=== PATIENT | female | born 1950 | race Two or more races ===

== ENCOUNTER 2019-06-27 23:41 | Inpatient (IN) | payer OTHER ==
[~2019-06-27] VITALS: Ht 152.4 cm; Wt 66.2 kg
--- NOTE | 2019-06-27 23:45 | NUR ---
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
[2019-06-28] VITALS (37 sets, daily range): BP systolic 55–150; BP diastolic 32–101
[2019-06-28 00:04] LABS: HEMATOCRIT 21.4 % (37.0-47.0); HEMOGLOBIN 7.4 G/DL (12.0-16.0); MEAN CORPUSCULAR VOLUME 98 FL (80-99); PLATELET COUNT 53 K/UL (150-450); RED BLOOD COUNT 2.19 M/UL (4.20-5.40); RED CELL DISTRIBUTION WIDTH 13.5 % (11.6-14.8); WHITE BLOOD COUNT 8.1 K/UL (4.8-10.8)
[2019-06-28] MEDS ORDERED: Pantoprazole Inj IVP ONE (00:15)
[2019-06-28] MEDS ORDERED: Octreotide Acetate 500 MCG in Sodium Chloride 499 ML IV SCH (00:15)
--- NOTE | 2019-06-28 00:15 | NUR ---
ED Nurse Note: Pt continues to have active emesis of bright red blood and large clots, MD is aware, pt also remains with very low b/p, also re-informed md, asked for iv fluids, pressors,etc, no new orders recieved, pt remains awake and alert, on monitoring, iv site patent, will continue to closely monitor.
[2019-06-28 00:17] LABS: ANION GAP 11 mmol/L (5-15); BLOOD UREA NITROGEN 32 mg/dL (7-18); CALCIUM 7.9 MG/DL (8.5-10.1); CARBON DIOXIDE 22 MMOL/L (21-32); CHLORIDE 110 MMOL/L (98-107); CREATININE 0.8 MG/DL (0.55-1.30); POTASSIUM 4.2 MMOL/L (3.5-5.1); SODIUM 143 MMOL/L (136-145)
[2019-06-28 00:36] LABS: ALANINE AMINOTRANSFERASE 29 U/L (12-78); ALBUMIN 1.9 G/DL (3.4-5.0); ALBUMIN/GLOBULIN RATIO 0.7 (1.0-2.7); ALKALINE PHOSPHATASE 155 U/L (46-116); ASPARTATE AMINO TRANSFERASE 40 U/L (15-37); BILIRUBIN,TOTAL 2.3 MG/DL (0.2-1.0); CKMB 1.7 NG/ML (0.0-3.6); CREATINE KINASE 76 U/L (26-308)
--- NOTE | 2019-06-28 00:40 | NUR ---
ED Nurse Note: Pt continued to have severe, emesis with active bleeding and clots, pt was in trendelenburg position for low b/p, pt now in semi-fowlers due to constant emesis, md decided to intubate pt, pt now intubated, et-tube size 8.0 and at 20cm lip line, vent settings ac-16, tv-500, fi02 100% and peep of 5, pt tolerating well, b/p remains very low, pt to recieve emergency blood transfusion.
[2019-06-28 00:49] LABS: BILIRUBIN,DIRECT 0.4 MG/DL (0.0-0.3)
--- NOTE | 2019-06-28 02:00 | NUR ---
ED Nurse Note: Pt continues to rest in bed, awake and alert, pt is intubated, tolerating well, no need for restraints, pt is very cooperative, currently recieving blood transfusion of PRBC's, tolerating well, no s/s of adverse reaction noted, repeat lactic drawn also, pt central line inplace, will continue to closely monitor and prepare for admission to ICU unit.
[2019-06-28 02:09] LABS: INR 1.4 (0.9-1.1)
[2019-06-28] MEDS ORDERED: Succinylcholine 20mg/ml 10ml vial IV ONE (02:30)
--- NOTE | 2019-06-28 03:00 | NUR ---
ED Nurse Note: Pt continues to recieve PRBC's blood transfusion, tolerating well, no s/s of adverse reaction, pt to recieve total of 4 units, on 3rd now, pt given complete bath and linen change, skin is intact and patent, swabs collected and sent, pt to be admitted to ICU unit, will continue to closely monitor and prepare for admission.
--- NOTE | 2019-06-28 03:14 | Emergency Room Report ---
History of Present Illness General Chief Complaint: Vomiting Source: Patient Present Illness HPI Patient presents by paramedics for reports of vomiting blood throughout the day Patient herself reports starting in the morning time family reports that they saw her around 1:00 And patient had told him about vomiting blood patient has had recent blood transfusion and upper endoscopy with intervention that is not specific to the family This is within the last 1 month Patient's family also reports patient has liver disease and esophageal varices Patient denies any abdominal pain on further questioning also reports dark Stools Allergies: Coded Allergies: No Known Allergies (Unverified , 06/27/19) Patient History Past Medical History: see triage record Last Menstrual Period: n/a Reviewed Nursing Documentation: PMH: Agreed; PSxH: Agreed Nursing Documentation-PMH Past Medical History: No History, Except For Hx Diabetes: Yes Review of Systems All Other Systems: negative except mentioned in HPI Physical Exam Vital Signs Date Time Temp Pulse Resp B/P (MAP) Pulse Ox O2 Delivery O2 Flow Rate FiO2 06/27/19 23:32 98.2 125 18 86/46 (59) 98 Room Air 06/28/19 00:30 100 Sp02 EP Interpretation: reviewed, normal General Appearance: severe distress Head: normocephalic, atraumatic Eyes: bilateral eye PERRL ENT: no angioedema, normal voice Neck: supple Respiratory: lungs clear Cardiovascular #1: regular rate, rhythm Gastrointestinal: non tender, soft Rectal: other - Melena presents Genitourinary: no CVA tenderness Musculoskeletal: normal inspection Neurologic: alert, oriented x3 Psychiatric: normal inspection Skin: pallor - Patient actively vomiting bright blood at bedside, appears pale Lymphatic: normal inspection Procedures Critical Care Time Critical Care Time 85 minutes for multiple re-evaluations critical presentation concerning for decompensation and possible Central Line Central Line : Consent: Emergent Central Line Lumen: triple Maximal Sterile Barrier Tech: yes cap, yes mask, yes sterile gown, yes sterile gloves, yes large sterile sheet, yes hand hygiene, yes chlorhexidine prep Central Line Postion: femoral (L) Complications: none Central Line Post Position: sutured Attempts: One Patient Tolerated: Well Complications: None Progress Please note the patient had one attempt on the right femoral region without success Intubation Intubation : Consent: Emergent Intubation Method: orotracheal Tube Size (cm): 8.0 Medications: Succinylcholine Breath Sounds after Intubation: equal Post Intubation Xray: Yes Attempts: One Patient Tolerated: Well Complications: None Progress Patient has large amounts of blood in the oral mucosa required suctioning Medical Decision Making Diagnostic Impression: Primary Impression: GI bleed ER Course Patient presents and critical condition Actively vomiting bright blood Patient also hypotensive Patient also appears to become more hypoxic requiring airway intubation central line placement Patient's hemoglobin is 7.4 however likely heading lower given her findings Emergency transfusions are initiated Patient has somewhat stabilized with blood pressure improving initially a Terrell NG tube was going to be placed however given the patient's improvement this is being held until further GI consultation GI is contacted patient remains critical and admitted to ICU guarded condition Labs Test 06/27/19 23:40 06/28/19 01:30 06/28/19 02:28 White Blood Count 8.1 K/UL (4.8-10.8) Red Blood Count 2.19 M/UL (4.20-5.40) Hemoglobin 7.4 G/DL (12.0-16.0) Hematocrit 21.4 % (37.0-47.0) Mean Corpuscular Volume 98 FL (80-99) Mean Corpuscular Hemoglobin 33.6 PG (27.0-31.0) Mean Corpuscular Hemoglobin Concent 34.3 G/DL (32.0-36.0) Red Cell Distribution Width 13.5 % (11.6-14.8) Platelet Count 53 K/UL (150-450) Mean Platelet Volume 9.5 FL (6.5-10.1) Neutrophils (%) (Auto) % (45.0-75.0) Lymphocytes (%) (Auto) % (20.0-45.0) Monocytes (%) (Auto) % (1.0-10.0) Eosinophils (%) (Auto) % (0.0-3.0) Basophils (%) (Auto) % (0.0-2.0) Prothrombin Time 14.8 SEC (9.30-11.50) Prothromb Time International Ratio 1.4 (0.9-1.1) Activated Partial Thromboplast Time 33 SEC (23-33) Sodium Level 143 MMOL/L (136-145) Potassium Level 4.2 MMOL/L (3.5-5.1) Chloride Level 110 MMOL/L (98-107) Carbon Dioxide Level 22 MMOL/L (21-32) Anion Gap 11 mmol/L (5-15) Blood Urea Nitrogen 32 mg/dL (7-18) Creatinine 0.8 MG/DL (0.55-1.30) Estimat Glomerular Filtration Rate > 60 mL/min (>60) Glucose Level 391 MG/DL (74-106) Lactic Acid Level 6.70 mmol/L (0.4-2.0) 5.90 mmol/L (0.66-2.22) Calcium Level 7.9 MG/DL (8.5-10.1) Total Bilirubin 2.3 MG/DL (0.2-1.0) Direct Bilirubin 0.4 MG/DL (0.0-0.3) Aspartate Amino Transf (AST/SGOT) 40 U/L (15-37) Alanine Aminotransferase (ALT/SGPT) 29 U/L (12-78) Alkaline Phosphatase 155 U/L (46-116) Total Creatine Kinase 76 U/L (26-308) Creatine Kinase MB 1.7 NG/ML (0.0-3.6) Creatine Kinase MB Relative Index 2.2 Troponin I 0.062 ng/mL (0.000-0.056) Pro-B-Type Natriuretic Peptide 54 pg/mL (0-125) Total Protein 4.8 G/DL (6.4-8.2) Albumin 1.9 G/DL (3.4-5.0) Globulin 2.9 g/dL Albumin/Globulin Ratio 0.7 (1.0-2.7) Lipase 317 U/L (73-393) Arterial Blood pH 7.275 (7.350-7.450) Arterial Blood Partial Pressure CO2 32.6 mmHg (35.0-45.0) Arterial Blood Partial Pressure O2 310.8 mmHg (75.0-100.0) Arterial Blood HCO3 14.8 mmol/L (22.0-26.0) Arterial Blood Oxygen Saturation 98.7 % (95-100) Arterial Blood Base Excess -11 (-2-2) James Test Positive Rhythm Strip Diag. Results EP Interpretation: yes Rate: 90 Rhythm: NSR, no PVC's, no ectopy Chest X-Ray Diagnostic Results Chest X-Ray Diagnostic Results #1: Chest X-Ray Ordered: Yes # of Views/Limited/Complete: 1 View Indication: Chest Pain EP Interpretation: Yes Interpretation: no consolidation, no effusion, no pneumothorax Impression: No acute disease Electronically Signed by: Julieth Martínez DO Chest X-Ray Diagnostic Results #2: Chest X-Ray Ordered: Yes # of Views/Limited/Complete: 1 View Indication: Other - Post intubation EP Interpretation: Yes Interpretation: no consolidation, no effusion, no pneumothorax Impression: Other - ET tube will be withdrawn half centimeter Electronically Signed by: Julieth Martínez DO Last Vital Signs Date Time Temp Pulse Resp B/P (MAP) Pulse Ox O2 Delivery O2 Flow Rate FiO2 06/28/19 01:05 91 17 98 Mechanical Ventilator 100 06/28/19 01:00 98.2 65/36 Status: improved Disposition: ADMITTED INPATIENT Condition: Critical Referrals: [facility],REFERRING (PCP) Julieth Martínez DO Jun 28, 2019 03:14
--- NOTE | 2019-06-28 03:50 | NUR ---
ED Nurse Note: Pt has room for admisison, report called to ROMAIN Thomas, pt has all belongings, remains intubated, respiratory therapist present, pt is awake, alert and oriented, no s/s of blood transfusion reactiono noted, pt completing last unit, pt being taken to floor bed via gurney and acls protocols, nad noted during pt transport.
--- NOTE | 2019-06-28 04:15 | NUR ---
NURSE NOTES: Patient is transferred from ED and received report from ROMAIN Patterson. Patient is alert and able to follow commands. No acute distress/SOB noted. ETT 8.0/20cm at lip line. Vent setting AC 16, TV 550 and FiO2 50%. Left femoral TLC intact and running with sandostatin @50mcg/hr and 4th pRBC is running. VSS. Call-light placed in easy reach. Will follow up with Dr for admission orders.
--- NOTE | 2019-06-28 05:00 | NUR ---
NURSE NOTES: Received admission orders from Dr. Morelos. Will continue plan of care.
[2019-06-28] MEDS: NovoLOG Insulin Flexpen SUBQ SCH ×4 (06:41→21:59)
--- NOTE | 2019-06-28 06:45 | NUR ---
NURSE NOTES: Changed left femoral central line dressing.
--- NOTE | 2019-06-28 07:06 | NUR ---
RESPIRATORY NOTE: received pt orally intubated with vent settings of AC 16 550 50% +0 at this time. sputum collected as ordered, RN aware. pt in no resp distress at this time. will attempt to wean later this morning. alarms are set and audible with ambu bag at bedside. will cont to monitor.
--- NOTE | 2019-06-28 07:20 | NUR ---
HAND-OFF: Report given to ROMAIN Chawla. Endorsed plan of care.
--- NOTE | 2019-06-28 07:25 | NUR ---
NURSE NOTES: Received change of shift report from William HOYOS. Pt is awake, alert, orally intubated, responsive and able to follow commands. Pt is Telugu speaking, family is at bedside. ETT 8.0 at 20cm right lipline with vent settings AC16, VT550, FIO2 45% with O2Sat at 100% and bilateral inspiratory/expiratory diminished lung sounds. Bilateral peripheral weak pulses are noted on palpation. Pt has left femoral TLC currently with IV fluid infusing 0.45% NS at 75ml/hour and Sandostatin as ordered. Temp 97.6F axillary. Abdomen is large, round, tender to touch with hypoactive bowel sounds in all quadrants. Pt reports severe abdominal pain 8/10. Pt has external female-urinary catheter in place, with small dark yellow urine output. Skin is intact. Bed is locked with three side rails up in lowest position and call light within reach. Will continue to monitor pt and follow plan of care per MD orders and protocol.
--- NOTE | 2019-06-28 07:26 | NUR ---
NURSE NOTES: Pt is actively bleeding orally, dark red blood with blood clots. When head of bed is supine, blood is oozing out from the mouth, when the head of bed is elevated, pt complains of nausea, and vomits blood. MD has been notified. Pt is being suctioned orally. Per pt's family (daughter at bedside), the pt had recent past hospitalization where EDG was done which confirmed "esophageal varices" and "gastritis". Dr Morelos and Dr Hsieh (both covering for Dr Leigh are being notified).
[2019-06-28 08:45] LABS: HEMATOCRIT 36.6 % (37.0-47.0); MEAN CORPUSCULAR VOLUME 89 FL (80-99); PLATELET COUNT 37 K/UL (150-450); RED BLOOD COUNT 4.11 M/UL (4.20-5.40); RED CELL DISTRIBUTION WIDTH 13.6 % (11.6-14.8); WHITE BLOOD COUNT 12.3 K/UL (4.8-10.8)
--- NOTE | 2019-06-28 08:49 | NUR ---
RESPIRATORY NOTE: placed pt on CPAP PS 10 with family at bedside to help translate. pt tolerate for only 5 minutes before placing back on AC mode. pt's reason was stomach pain. RN notified. pt willing to try again later.
[2019-06-28 08:54] LABS: HEMOGLOBIN 12.4 G/DL (12.0-16.0)
[2019-06-28] MEDS ORDERED: Pantoprazole Inj IVP SCH (09:00)
--- NOTE | 2019-06-28 09:00 | NUR ---
NURSE NOTES: Pt was cleaned, gown/bed linens changed. Oral care done. Pt was repositioned with bilateral extremities elevated on pillows.
--- NOTE | 2019-06-28 09:04 | GI Initial Consult Note ---
History of Present Illness General Date patient seen: Jun 28, 2019 Time patient seen: 09:00 Reason for Hospitalization: Vomiting Referring physician: MATTHEW Reason for Consultation: UGIB Present Illness HPI Patient presents by paramedics for reports of vomiting blood throughout the day Patient herself reports starting in the morning time family reports that they saw her around 1:00 And patient had told him about vomiting blood patient has had recent blood transfusion and upper endoscopy with intervention that is not specific to the family This is within the last 1 month Patient's family also reports patient has liver disease and esophageal varices Patient denies any abdominal pain on further questioning also reports dark Stools GI consulted for reported UGIB. Pt seen, awake alert intubated in ICU, family at bedside. According to the family, the patient had multiple episodes of coffee grounds in the ED and in unit. They report a history of cirrhosis x7 years, in which they denied any ETOH use or abuse. Her last endoscopy was performed approximately 1 month ago, noted with Esophageal Varices. Labs reviewed. Home Meds No Active Prescriptions or Reported Meds Allergies: Coded Allergies: No Known Allergies (Unverified , 06/27/19) Patient History Limited by: medical condition History Provided By: Family Member PMH Narrative Patient History Past Medical History: see triage record Last Menstrual Period: n/a Reviewed Nursing Documentation: PMH: Agreed; PSxH: Agreed Nursing Documentation-PM Past Medical History: No History, Except For Hx Diabetes: Yes Review of Systems All Other Systems: limited Physical Exam Vital Signs Date Time Temp Pulse Resp B/P (MAP) Pulse Ox O2 Delivery O2 Flow Rate FiO2 06/27/19 23:32 98.2 125 18 86/46 (59) 98 Room Air 06/28/19 00:30 100 Sp02 EP Interpretation: reviewed, normal Labs Laboratory Tests Test 06/27/19 23:40 06/28/19 01:30 06/28/19 02:28 06/28/19 08:15 White Blood Count 8.1 K/UL (4.8-10.8) 12.3 K/UL (4.8-10.8) #H Red Blood Count 2.19 M/UL (4.20-5.40) L 4.11 M/UL (4.20-5.40) L Hemoglobin 7.4 G/DL (12.0-16.0) L 12.4 G/DL (12.0-16.0) # Hematocrit 21.4 % (37.0-47.0) L 36.6 % (37.0-47.0) #L Mean Corpuscular Volume 98 FL (80-99) 89 FL (80-99) # Mean Corpuscular Hemoglobin 33.6 PG (27.0-31.0) H 30.2 PG (27.0-31.0) Mean Corpuscular Hemoglobin Concent 34.3 G/DL (32.0-36.0) 33.9 G/DL (32.0-36.0) Red Cell Distribution Width 13.5 % (11.6-14.8) 13.6 % (11.6-14.8) Platelet Count 53 K/UL (150-450) L 37 K/UL (150-450) L Mean Platelet Volume 9.5 FL (6.5-10.1) 12.2 FL (6.5-10.1) H Neutrophils (%) (Auto) % (45.0-75.0) % (45.0-75.0) Lymphocytes (%) (Auto) % (20.0-45.0) % (20.0-45.0) Monocytes (%) (Auto) % (1.0-10.0) % (1.0-10.0) Eosinophils (%) (Auto) % (0.0-3.0) % (0.0-3.0) Basophils (%) (Auto) % (0.0-2.0) % (0.0-2.0) Prothrombin Time 14.8 SEC (9.30-11.50) H Prothromb Time International Ratio 1.4 (0.9-1.1) H Activated Partial Thromboplast Time 33 SEC (23-33) Sodium Level 143 MMOL/L (136-145) Potassium Level 4.2 MMOL/L (3.5-5.1) Chloride Level 110 MMOL/L (98-107) H Carbon Dioxide Level 22 MMOL/L (21-32) Anion Gap 11 mmol/L (5-15) Blood Urea Nitrogen 32 mg/dL (7-18) H Creatinine 0.8 MG/DL (0.55-1.30) Estimat Glomerular Filtration Rate > 60 mL/min (>60) Glucose Level 391 MG/DL (74-106) H Lactic Acid Level 6.70 mmol/L (0.4-2.0) H 5.90 mmol/L (0.66-2.22) H Pending Calcium Level 7.9 MG/DL (8.5-10.1) L Total Bilirubin 2.3 MG/DL (0.2-1.0) H Direct Bilirubin 0.4 MG/DL (0.0-0.3) H Aspartate Amino Transf (AST/SGOT) 40 U/L (15-37) H Alanine Aminotransferase (ALT/SGPT) 29 U/L (12-78) Alkaline Phosphatase 155 U/L (46-116) H Total Creatine Kinase 76 U/L (26-308) Creatine Kinase MB 1.7 NG/ML (0.0-3.6) Creatine Kinase MB Relative Index 2.2 Troponin I 0.062 ng/mL (0.000-0.056) Pending Pro-B-Type Natriuretic Peptide 54 pg/mL (0-125) Total Protein 4.8 G/DL (6.4-8.2) L Albumin 1.9 G/DL (3.4-5.0) L Globulin 2.9 g/dL Albumin/Globulin Ratio 0.7 (1.0-2.7) L Lipase 317 U/L (73-393) Arterial Blood pH 7.275 (7.350-7.450) Arterial Blood Partial Pressure CO2 32.6 mmHg (35.0-45.0) L Arterial Blood Partial Pressure O2 310.8 mmHg (75.0-100.0) H Arterial Blood HCO3 14.8 mmol/L (22.0-26.0) *L Arterial Blood Oxygen Saturation 98.7 % (95-100) Arterial Blood Base Excess -11 (-2-2) *L James Test Positive Neutrophils % (Manual) Pending Lymphocytes % (Manual) Pending Platelet Estimate Pending Platelet Morphology Pending General Appearance: well appearing, no apparent distress, alert Head: normocephalic EENT: PERRL/EOMI, normal ENT inspection Neck: supple Respiratory: normal breath sounds, no respiratory distress Cardiovascular: normal rate Gastrointestinal: normal inspection, non tender, soft, normal bowel sounds, non -distended Rectal: deferred Genitourinary: no CVA tenderness Musculoskeletal: normal inspection, back normal Neurologic: normal inspection, alert, oriented x3, responsive Psychiatric: normal inspection, judgement/insight normal, memory normal Skin: normal inspection, normal color, no rash, warm/dry, palpation normal, well hydrated Lymphatic: normal inspection, no adenopathy Current Medications Current Medications Medications (Trade) Dose Ordered Sig/Naseem Route PRN Reason Start Time Stop Time Status Last Admin Dose Admin Chlorhexidine Gluconate (Mer-Hex 2%) 1 applic DAILY@2000 TOPIC 06/28/19 20:00 07/28/19 19:59 Dextrose (Dextrose 50%) 25 ml Q30M PRN IV Hypoglycemia 06/28/19 05:00 07/28/19 04:59 Dextrose (Dextrose 50%) 50 ml Q30M PRN IV Hypoglycemia 06/28/19 05:00 07/28/19 04:59 Insulin Aspart (NovoLOG) BEFORE MEALS AND HS SUBQ 06/28/19 06:30 07/28/19 06:29 06/28/19 06:41 Octreotide Acetate 500 mcg/ Sodium Chloride 500 ml @ 50 mls/hr Q10H IV 06/28/19 10:00 07/28/19 09:59 Pantoprazole (Protonix) 40 mg EVERY 12 HOURS IVP 06/28/19 09:00 07/28/19 08:59 Sodium Chloride 1,000 ml @ 75 mls/hr [id number] IV 06/28/19 05:00 07/28/19 04:59 06/28/19 05:22 GI: Plan Problems: (1) Varices, esophageal (2) Cirrhosis (3) GI bleed (4) Acute GI bleeding Plan EGD to be scheduled tomorrow pending cardiac clearance given elevated troponin levels maintain NPO + IVFs octreotide gtt protonix gtt prn transfusions abdominal US hepatitis panel follow labs will follow with additional recommendations post procedure Discussed with Dr. Garcia. Thank you for this patient referral, we will follow. The patient was seen and examined at bedside and all new and available data was reviewed in the patients chart. I agree with the above findings, impression and plan. (Patient seen earlier today. Signature stamp does not reflect patient encounter time.). - MD Denise KumarSierra TucsonJarvis DIAZO TECHNICIAN Jun 28, 2019 09:04
--- NOTE | 2019-06-28 09:26 | NUR ---
*-* NO INSURANCE INFORMATION IN THE BAR UNABLE TO SEND CLINICALS OR REVIEWS *-*
--- NOTE | 2019-06-28 09:30 | NUR ---
NURSE NOTES: Normal saline 500ml bolus and 1000ml bolus are being administered as ordered for hypotension. Dr Zeng was at bedside and informed regarding pt's condition. Order was also received for Levophed and med is now ready and on standby, as pt's BP is slowly improving.
[2019-06-28] MEDS: Pantoprazole 80 MG in NS 250 ML IV SCH ×2 (09:42→19:46)
[2019-06-28] MEDS: Morphine Sulfate 2mg/ml Inj(IV/IM USE ONLY) IVP PRN ×3 (09:51→22:07)
--- NOTE | 2019-06-28 10:00 | NUR ---
NURSE NOTES: Pt was administered Morphine IVP as ordered for PRN severe abdominal pain. AM meds were administered. Order noted for platelet transfusion. Will follow once blood is available through blood bank. Oral bleeding has stopped. When suctioning pt, there is very small amount of secretion that is light pink. ECG tracing was done as ordered, resulted Normal Sinus Rhythm. agricultural technician is now at bedside for 2D Echo. Family has been updated and is currently in the waiting area.
[2019-06-28] MEDS: Octreotide Acetate 500 MCG in Sodium Chloride 499 ML IV SCH ×2 (10:30→19:46)
--- NOTE | 2019-06-28 10:46 | History and Physical ---
History of Present Illness General Date patient seen: Jun 28, 2019 Reason for Hospitalization: Vomiting Present Illness HPI History obtained by family HPI: 69-year-old female with past medical history of esophageal varices diagnosed on recent EGD done at [facility]. Family describes that at that time patient had a EGD that was shown to have a "infection". Suspect possible H. pylori. Family states she was on antibiotics. Patient also has liver cirrhosis without unknown cause. Family denies history of EtOH. They are unaware of any work-up for cirrhosis. They deny family history of cirrhosis, or autoimmune diseases. Patient was brought in for hematemesis, and intubated for airway protection. About 400 cc of blood suctioned from oral cavity. Patient was initially hypotensive with systolic blood pressure in the 60s, was given IV fluids, placed on levo fed. Patient was eventually weaned off levo with adequate fluid resuscitation. Patient also placed on octreotide drip, Protonix, Rocephin for ascites on exam. Past medical history: Esophageal varices, cirrhosis Past surgical history; EGD 1 month ago at [facility] Medications: None Allergies: None Family history: Denies Past social history: Denies EtOH, tobacco, drug use ROS: As stated above. Aside from HPI all other review of systems are negative including more than 12 systems. Allergies: Coded Allergies: No Known Allergies (Unverified , 06/27/19) Medication History No Active Prescriptions or Reported Meds Patient History Healthcare decision maker PRABHU RAMIREZ Resuscitation status Full Code Advanced Directive on File No Physical Exam Last 24 Hour Vital Signs Date Time Temp Pulse Resp B/P (MAP) Pulse Ox O2 Delivery O2 Flow Rate FiO2 06/28/19 10:21 97.5 06/28/19 08:40 98 18 45 45 06/28/19 08:40 98 06/28/19 07:01 101 18 50 06/28/19 07:00 101 18 111/63 (79) 100 06/28/19 06:00 99 16 107/61 (76) 100 06/28/19 05:18 101 16 100 06/28/19 05:09 Mechanical Ventilator 06/28/19 05:05 100 16 116/59 (78) 100 06/28/19 04:32 50 06/28/19 04:31 98 06/28/19 04:27 97.5 98 16 123/68 (86) 100 06/28/19 04:00 98.4 96 16 114/57 100 Mechanical Ventilator 100 06/28/19 03:00 98.4 96 16 114/57 100 Mechanical Ventilator 100 06/28/19 02:40 96 19 100 06/28/19 02:30 98.4 86 16 97/52 100 Mechanical Ventilator 100 06/28/19 02:00 98.2 86 17 86/40 100 Mechanical Ventilator 100 06/28/19 01:30 98.2 89 17 55/35 100 Mechanical Ventilator 100 06/28/19 01:05 91 17 98 Mechanical Ventilator 100 06/28/19 01:00 98.2 109 17 65/36 100 Mechanical Ventilator 100 06/28/19 00:54 91 17 100 06/28/19 00:30 98.2 108 18 107/50 100 Mechanical Ventilator 100 06/28/19 00:00 98.2 109 18 61/32 98 Room Air 06/27/19 23:45 125 18 Room Air 06/27/19 23:32 98.2 125 18 86/46 (59) 98 Room Air Intake and Output 06/27/19 06/28/19 18:59 06:59 Intake Total 864 ml Output Total 0 ml Balance 864 ml Intake Oral 0 ml IV Total 97 ml Blood Product 767 ml Output Urine Total 0 ml # Voids 2 Laboratory Tests Test 06/27/19 23:40 06/28/19 01:30 06/28/19 02:28 06/28/19 08:15 White Blood Count 8.1 K/UL (4.8-10.8) 12.3 K/UL (4.8-10.8) #H Red Blood Count 2.19 M/UL (4.20-5.40) L 4.11 M/UL (4.20-5.40) L Hemoglobin 7.4 G/DL (12.0-16.0) L 12.4 G/DL (12.0-16.0) # Hematocrit 21.4 % (37.0-47.0) L 36.6 % (37.0-47.0) #L Mean Corpuscular Volume 98 FL (80-99) 89 FL (80-99) # Mean Corpuscular Hemoglobin 33.6 PG (27.0-31.0) H 30.2 PG (27.0-31.0) Mean Corpuscular Hemoglobin Concent 34.3 G/DL (32.0-36.0) 33.9 G/DL (32.0-36.0) Red Cell Distribution Width 13.5 % (11.6-14.8) 13.6 % (11.6-14.8) Platelet Count 53 K/UL (150-450) L 37 K/UL (150-450) L Mean Platelet Volume 9.5 FL (6.5-10.1) 12.2 FL (6.5-10.1) H Neutrophils (%) (Auto) % (45.0-75.0) % (45.0-75.0) Lymphocytes (%) (Auto) % (20.0-45.0) % (20.0-45.0) Monocytes (%) (Auto) % (1.0-10.0) % (1.0-10.0) Eosinophils (%) (Auto) % (0.0-3.0) % (0.0-3.0) Basophils (%) (Auto) % (0.0-2.0) % (0.0-2.0) Prothrombin Time 14.8 SEC (9.30-11.50) H Prothromb Time International Ratio 1.4 (0.9-1.1) H Activated Partial Thromboplast Time 33 SEC (23-33) Sodium Level 143 MMOL/L (136-145) Potassium Level 4.2 MMOL/L (3.5-5.1) Chloride Level 110 MMOL/L (98-107) H Carbon Dioxide Level 22 MMOL/L (21-32) Anion Gap 11 mmol/L (5-15) Blood Urea Nitrogen 32 mg/dL (7-18) H Creatinine 0.8 MG/DL (0.55-1.30) Estimat Glomerular Filtration Rate > 60 mL/min (>60) Glucose Level 391 MG/DL (74-106) H Lactic Acid Level 6.70 mmol/L (0.4-2.0) H 5.90 mmol/L (0.66-2.22) H 4.70 mmol/L (0.4-2.0) H Calcium Level 7.9 MG/DL (8.5-10.1) L Total Bilirubin 2.3 MG/DL (0.2-1.0) H Direct Bilirubin 0.4 MG/DL (0.0-0.3) H Aspartate Amino Transf (AST/SGOT) 40 U/L (15-37) H Alanine Aminotransferase (ALT/SGPT) 29 U/L (12-78) Alkaline Phosphatase 155 U/L (46-116) H Total Creatine Kinase 76 U/L (26-308) Creatine Kinase MB 1.7 NG/ML (0.0-3.6) Creatine Kinase MB Relative Index 2.2 Troponin I 0.062 ng/mL (0.000-0.056) 0.262 ng/mL (0.000-0.056) Pro-B-Type Natriuretic Peptide 54 pg/mL (0-125) Total Protein 4.8 G/DL (6.4-8.2) L Albumin 1.9 G/DL (3.4-5.0) L Globulin 2.9 g/dL Albumin/Globulin Ratio 0.7 (1.0-2.7) L Lipase 317 U/L (73-393) Arterial Blood pH 7.275 (7.350-7.450) Arterial Blood Partial Pressure CO2 32.6 mmHg (35.0-45.0) L Arterial Blood Partial Pressure O2 310.8 mmHg (75.0-100.0) H Arterial Blood HCO3 14.8 mmol/L (22.0-26.0) *L Arterial Blood Oxygen Saturation 98.7 % (95-100) Arterial Blood Base Excess -11 (-2-2) *L James Test Positive Differential Total Cells Counted 100 Neutrophils % (Manual) 94 % (45-75) H Lymphocytes % (Manual) 4 % (20-45) L Monocytes % (Manual) 2 % (1-10) Eosinophils % (Manual) 0 % (0-3) Basophils % (Manual) 0 % (0-2) Band Neutrophils 0 % (0-8) Platelet Estimate Decreased L Platelet Morphology Normal Red Blood Cell Morphology Normal Microbiology Date/Time Source Procedure Growth Status 06/28/19 03:00 Rectum Received Height (Feet): 5 Height (Inches): 2.00 Weight (Pounds): 111 Medications Current Medications Medications (Trade) Dose Ordered Sig/Naseem Route PRN Reason Start Time Stop Time Status Last Admin Dose Admin Chlorhexidine Gluconate (Mer-Hex 2%) 1 applic DAILY@2000 TOPIC 06/28/19 20:00 07/28/19 19:59 Dextrose (Dextrose 50%) 25 ml Q30M PRN IV Hypoglycemia 06/28/19 05:00 07/28/19 04:59 Dextrose (Dextrose 50%) 50 ml Q30M PRN IV Hypoglycemia 06/28/19 05:00 07/28/19 04:59 Insulin Aspart (NovoLOG) BEFORE MEALS AND HS SUBQ 06/28/19 06:30 07/28/19 06:29 06/28/19 06:41 Morphine Sulfate (Morphine Sulfate) 2 mg Q4H PRN IVP For Pain 06/28/19 09:15 07/05/19 09:14 06/28/19 09:51 Norepinephrine Bitartrate 4 mg/ Dextrose 250 ml @ 0 mls/hr Q24H IV 06/28/19 10:30 07/28/19 10:29 Octreotide Acetate 500 mcg/ Sodium Chloride 500 ml @ 50 mls/hr Q10H IV 06/28/19 10:00 07/28/19 09:59 06/28/19 10:30 Pantoprazole 80 mg/Sodium Chloride 250 ml @ 25 mls/hr Q10H IV 06/28/19 10:00 07/28/19 09:59 06/28/19 09:42 Sodium Chloride 500 ml @ 999 mls/hr Q31M ONCE IV 06/28/19 10:30 06/28/19 11:00 Sodium Chloride 1,000 ml @ 75 mls/hr [id number] IV 06/28/19 05:00 07/28/19 04:59 06/28/19 05:22 Objective Narrative GENERAL: Intubated, no acute distress, sitting comfortably, alert HEENT: NCAT, non-icteric eyes, pupils PERRLA Neck: No cervical lymphadenopathy, trachea midline CV: Regular rate and rhythm, no murmurs rubs or gallops RESP: RLL crackles EXT: Normal muscle tone NEURO: intubated, opens eyes and follows commands Vent settings FiO2 40% No PEEP Pressors Levo off Sedation None Assessment/Plan Diagnosis [place] I: 69-year-old female with past medical history of liver cirrhosis without known etiology presents for hematemesis #Hypovolemic shock secondary to hematemesis -Continue fluid resuscitation, additional fluid bolus -PRBC, platelet transfusion -Trend CBC every 6 hours -GI consult, appreciate recs -Surgery consult, appreciate recs -Trend lactate -Wean levofed-> patient weaned after further fluid resuscitation -Cardiology consult, appreciate recs -Echo -Trend troponins #Intubation for airway protection -Pulmonology consult, appreciate recs -After EGD if bleeding is controlled, wean to extubation -RT #Suspected aspiration, patient high risk -Monitor for worsening sepsis or pneumonia -Follow-up repeat chest x-ray #Liver cirrhosis with esophageal varices -Ascites present, continue Rocephin -Protonix 40 mg IV twice daily -Octreotide drip -Monitor CBC and BMP -Patient denies alcohol use, family states reason for liver cirrhosis is unknown. Differentials include Saunders versus autoimmune causes -Autoimmune work-up, can be deferred -Hepatitis panel -Right upper quadrant ultrasound The time of my note may not reflect the time of my patient encounter. 45 minutes of critical time spent. This includes interpretation of charting, vitals, labs, imaging, exam. Advance care planning discussion with family regarding goals of care as well as patient's medical condition and plan. Aileen Hsieh DO Jun 28, 2019 10:46
[2019-06-28] MEDS: cefTRIAXone 1 GM in D5W 55 ML IVPB SCH (11:51)
--- NOTE | 2019-06-28 12:00 | NUR ---
NURSE NOTES: Pt was given Morphine IVP and is now asleep in no apparent distress with family at bedside. The oral bleed has now stopped. BP remains within stable range between low 90's and 110's. Pt remains afebrile. Levophed is on standy, currently on hold.
--- NOTE | 2019-06-28 12:03 | Diagnostic Imaging Report ---
Indication: Post intubation Technique: One view of the chest Comparison: One hour earlier Findings: Interim endotracheal intubation, endotracheal tube tip projecting just above the halima. There are perihilar atelectatic changes. Lungs and pleural spaces are otherwise clear. The heart size is normal. Impression: Interim endotracheal intubation, endotracheal tube tip just above the halima. Other findings as noted This agrees with the preliminary interpretation provided by the emergency room physician
--- NOTE | 2019-06-28 12:36 | Cardiology Report ---
APPROVED REPORT EKG Measurement Heart [id number] Normal sinus rhythm Nonspecific ST abnormality Prolonged QT Abnormal ECG
--- NOTE | 2019-06-28 13:18 | Consultation ---
History of Present Illness General Date patient seen: Jun 28, 2019 Time patient seen: 17:04 Chief Complaint: Vomiting Referring physician: MATTHEW Reason for Consultation: UGIB Present Illness HPI Patient came in from home with c/o emesis with blood since am, pt arrived vomiting large blood clots, and bright red emesis, patient was intubated for airway protected, she was transfused PRBC. The patient had recent past hospitalization where EDG was done which confirmed "esophageal varices" and "gastritis. Family reports hx of cirrhosis but no alcohol use. TTE: Left ventricular ejection fraction estimated to be 65 %. and diastolic dysfunction. Allergies: Coded Allergies: No Known Allergies (Unverified , 06/27/19) Medication History No Active Prescriptions or Reported Meds Patient History Healthcare decision maker PRABHU RAMIREZ Resuscitation status Full Code Advanced Directive on File No Review of Systems Constitutional: Reports: no symptoms Eye: Reports: no symptoms ENT: Reports: no symptoms Respiratory: Reports: no symptoms Cardiovascular: Reports: no symptoms Gastrointestinal: Reports: abdominal pain, nausea, vomiting Genitourinary: Reports: no symptoms Musculoskeletal: Reports: no symptoms Skin: Reports: no symptoms Psychiatric: Reports: no symptoms Neurological: Reports: no symptoms Endocrine: Reports: no symptoms Hematologic/Lymphatic: Reports: no symptoms Physical Exam General Appearance: no apparent distress, alert Lines, tubes and drains: peripheral HEENT: normocephalic, atraumatic, anicteric, mucous membranes moist, PERRL Neck: non-tender, normal alignment, supple Respiratory/Chest: crackles/rales, rhonchi - bilaterally Cardiovascular/Chest: normal peripheral pulses, normal rate, regular rhythm Abdomen: normal bowel sounds, non tender, decreased bowel sounds, hepatomegaly , splenomegaly Extremities: normal range of motion, non-tender, normal inspection Skin Exam: normal pigmentation, warm/dry, cyanotic Neurologic: pathologist assistant II-XII grossly normal, no motor/sensory deficits Last 24 Hour Vital Signs Date Time Temp Pulse Resp B/P (MAP) Pulse Ox O2 Delivery O2 Flow Rate FiO2 06/28/19 12:46 95 16 50 06/28/19 11:00 95 17 110/56 (74) 100 06/28/19 10:35 91 16 50 06/28/19 10:30 92 16 93/52 (66) 100 06/28/19 10:21 97.5 06/28/19 10:00 90 16 73/47 (56) 99 06/28/19 09:30 91 16 61/37 (45) 99 06/28/19 09:00 99 16 88/50 (63) 99 06/28/19 08:40 98 18 45 45 06/28/19 08:40 98 06/28/19 08:00 97.5 98 16 81/47 (58) 99 06/28/19 07:01 101 18 50 06/28/19 07:00 101 18 111/63 (79) 100 06/28/19 06:00 99 16 107/61 (76) 100 06/28/19 05:18 101 16 100 06/28/19 05:09 Mechanical Ventilator 06/28/19 05:05 100 16 116/59 (78) 100 06/28/19 04:32 50 06/28/19 04:31 98 06/28/19 04:27 97.5 98 16 123/68 (86) 100 06/28/19 04:00 98.4 96 16 114/57 100 Mechanical Ventilator 100 06/28/19 03:00 98.4 96 16 114/57 100 Mechanical Ventilator 100 06/28/19 02:40 96 19 100 06/28/19 02:30 98.4 86 16 97/52 100 Mechanical Ventilator 100 06/28/19 02:00 98.2 86 17 86/40 100 Mechanical Ventilator 100 06/28/19 01:30 98.2 89 17 55/35 100 Mechanical Ventilator 100 06/28/19 01:05 91 17 98 Mechanical Ventilator 100 06/28/19 01:00 98.2 109 17 65/36 100 Mechanical Ventilator 100 06/28/19 00:54 91 17 100 06/28/19 00:30 98.2 108 18 107/50 100 Mechanical Ventilator 100 06/28/19 00:00 98.2 109 18 61/32 98 Room Air 06/27/19 23:45 125 18 Room Air 06/27/19 23:32 98.2 125 18 86/46 (59) 98 Room Air Intake and Output 06/27/19 06/28/19 19:00 07:00 Intake Total 864 ml Output Total 0 ml Balance 864 ml Intake Oral 0 ml IV Total 97 ml Blood Product 767 ml Output Urine Total 0 ml # Voids 2 Laboratory Tests Test 06/27/19 23:40 06/28/19 00:30 06/28/19 01:30 06/28/19 02:28 White Blood Count 8.1 K/UL (4.8-10.8) Red Blood Count 2.19 M/UL (4.20-5.40) L Hemoglobin 7.4 G/DL (12.0-16.0) L Hematocrit 21.4 % (37.0-47.0) L Mean Corpuscular Volume 98 FL (80-99) Mean Corpuscular Hemoglobin 33.6 PG (27.0-31.0) H Mean Corpuscular Hemoglobin Concent 34.3 G/DL (32.0-36.0) Red Cell Distribution Width 13.5 % (11.6-14.8) Platelet Count 53 K/UL (150-450) L Mean Platelet Volume 9.5 FL (6.5-10.1) Neutrophils (%) (Auto) % (45.0-75.0) Lymphocytes (%) (Auto) % (20.0-45.0) Monocytes (%) (Auto) % (1.0-10.0) Eosinophils (%) (Auto) % (0.0-3.0) Basophils (%) (Auto) % (0.0-2.0) Prothrombin Time 14.8 SEC (9.30-11.50) H Prothromb Time International Ratio 1.4 (0.9-1.1) H Activated Partial Thromboplast Time 33 SEC (23-33) Sodium Level 143 MMOL/L (136-145) Potassium Level 4.2 MMOL/L (3.5-5.1) Chloride Level 110 MMOL/L (98-107) H Carbon Dioxide Level 22 MMOL/L (21-32) Anion Gap 11 mmol/L (5-15) Blood Urea Nitrogen 32 mg/dL (7-18) H Creatinine 0.8 MG/DL (0.55-1.30) Estimat Glomerular Filtration Rate > 60 mL/min (>60) Glucose Level 391 MG/DL (74-106) H Lactic Acid Level 6.70 mmol/L (0.4-2.0) H 5.90 mmol/L (0.66-2.22) H Calcium Level 7.9 MG/DL (8.5-10.1) L Total Bilirubin 2.3 MG/DL (0.2-1.0) H Direct Bilirubin 0.4 MG/DL (0.0-0.3) H Aspartate Amino Transf (AST/SGOT) 40 U/L (15-37) H Alanine Aminotransferase (ALT/SGPT) 29 U/L (12-78) Alkaline Phosphatase 155 U/L (46-116) H Total Creatine Kinase 76 U/L (26-308) Creatine Kinase MB 1.7 NG/ML (0.0-3.6) Creatine Kinase MB Relative Index 2.2 Troponin I 0.062 ng/mL (0.000-0.056) Pro-B-Type Natriuretic Peptide 54 pg/mL (0-125) Total Protein 4.8 G/DL (6.4-8.2) L Albumin 1.9 G/DL (3.4-5.0) L Globulin 2.9 g/dL Albumin/Globulin Ratio 0.7 (1.0-2.7) L Lipase 317 U/L (73-393) Lab Scanned Report Blood Bank/Transfusion Arterial Blood pH 7.275 (7.350-7.450) Arterial Blood Partial Pressure CO2 32.6 mmHg (35.0-45.0) L Arterial Blood Partial Pressure O2 310.8 mmHg (75.0-100.0) H Arterial Blood HCO3 14.8 mmol/L (22.0-26.0) *L Arterial Blood Oxygen Saturation 98.7 % (95-100) Arterial Blood Base Excess -11 (-2-2) *L James Test Positive Test 06/28/19 08:15 White Blood Count 12.3 K/UL (4.8-10.8) #H Red Blood Count 4.11 M/UL (4.20-5.40) L Hemoglobin 12.4 G/DL (12.0-16.0) # Hematocrit 36.6 % (37.0-47.0) #L Mean Corpuscular Volume 89 FL (80-99) # Mean Corpuscular Hemoglobin 30.2 PG (27.0-31.0) Mean Corpuscular Hemoglobin Concent 33.9 G/DL (32.0-36.0) Red Cell Distribution Width 13.6 % (11.6-14.8) Platelet Count 37 K/UL (150-450) L Mean Platelet Volume 12.2 FL (6.5-10.1) H Neutrophils (%) (Auto) % (45.0-75.0) Lymphocytes (%) (Auto) % (20.0-45.0) Monocytes (%) (Auto) % (1.0-10.0) Eosinophils (%) (Auto) % (0.0-3.0) Basophils (%) (Auto) % (0.0-2.0) Differential Total Cells Counted 100 Neutrophils % (Manual) 94 % (45-75) H Lymphocytes % (Manual) 4 % (20-45) L Monocytes % (Manual) 2 % (1-10) Eosinophils % (Manual) 0 % (0-3) Basophils % (Manual) 0 % (0-2) Band Neutrophils 0 % (0-8) Platelet Estimate Decreased L Platelet Morphology Normal Red Blood Cell Morphology Normal Lactic Acid Level 4.70 mmol/L (0.4-2.0) H Troponin I 0.262 ng/mL (0.000-0.056) Microbiology Date/Time Source Procedure Growth Status 06/28/19 03:00 Rectum Received Height (Feet): 5 Height (Inches): 2.00 Weight (Pounds): 111 Medications Current Medications Medications (Trade) Dose Ordered Sig/Naseem Route PRN Reason Start Time Stop Time Status Last Admin Dose Admin Ceftriaxone Sodium 1 gm/ Dextrose 55 ml @ 110 mls/hr DAILY IVPB 06/28/19 11:00 07/05/19 10:59 06/28/19 11:51 Chlorhexidine Gluconate (Mer-Hex 2%) 1 applic DAILY@2000 TOPIC 06/28/19 20:00 07/28/19 19:59 Dextrose (Dextrose 50%) 25 ml Q30M PRN IV Hypoglycemia 06/28/19 05:00 07/28/19 04:59 Dextrose (Dextrose 50%) 50 ml Q30M PRN IV Hypoglycemia 06/28/19 05:00 07/28/19 04:59 Insulin Aspart (NovoLOG) BEFORE MEALS AND HS SUBQ 06/28/19 06:30 07/28/19 06:29 06/28/19 06:41 Morphine Sulfate (Morphine Sulfate) 2 mg Q4H PRN IVP For Pain 06/28/19 09:15 07/05/19 09:14 06/28/19 09:51 Norepinephrine Bitartrate 4 mg/ Dextrose 250 ml @ 0 mls/hr Q24H IV 06/28/19 10:30 07/28/19 10:29 Octreotide Acetate 500 mcg/ Sodium Chloride 500 ml @ 50 mls/hr Q10H IV 06/28/19 10:00 07/28/19 09:59 06/28/19 10:30 Pantoprazole 80 mg/Sodium Chloride 250 ml @ 25 mls/hr Q10H IV 06/28/19 10:00 07/28/19 09:59 06/28/19 09:42 Sodium Chloride 1,000 ml @ 75 mls/hr [id number] IV 06/28/19 05:00 07/28/19 04:59 06/28/19 05:22 Assessment/Plan Status: stable Assessment/Plan: Problems: (1) Varices, esophageal (2) Cirrhosis (3) GI bleed (4) Acute GI bleeding (5) Elevated troponin (6) Diastolic dysfunction PLAN: Trend Troponin/EKG - likely demand ischemia from anemia/emesis Wean vent as tolerated BID PPI and octreotide EGD when stable - clear to proceed, patient is hemodynamically stable Transfuse >7 Echo reviewed, normal LV function Stress test when stable Winston De La Torre MD Jun 28, 2019 13:18
--- NOTE | 2019-06-28 13:27 | NUR ---
CASE MANAGEMENT: INITIAL REVIEW 69 YO F BIBA FROM HOME CC: HEMOPTYSIS PMHx: DM SI:ACUTE GI BLEED T 98.2 HR 125 RR 18 B/P 86/46 SATS 98% ON RA HGB 7.4 HCT 21.4 CL 110 BUN 32 GLU 391 CA 7.9 TBILI 2.3 DBILI 0.4 AST 40 ALP 155 ABGs PH 7.275 PCO2 32.6 PO2 310.8 HCO3 14.8 BE -11 IS: PROTONIX IV X1 QUELICIN IV X1 PATIENT ADMITTED TO ICU 06/28/2019 @ 0030 DCP: PATIENT TO BE DISCHARGED TO HOME ONCE MEDICALLY CLEARED. PLAN OF CARE: EGD 06/29 PENDING CARDIAC CLEARANCE US ABD VENT SUPPORT
--- NOTE | 2019-06-28 13:42 | Cardiology Report ---
APPROVED REPORT EXAM: Two-dimensional and M-mode echocardiogram with Doppler and color Doppler. INDICATION Chest Pain M-Mode DIMENSIONS IVSd0.9 (0.7-1.1cm)Left Atrium (MM)3.3 (1.6-4.0cm) LVDd3.3 (3.5-5.6cm)Aortic Root3.1 (2.0-3.7cm) PWd1.0 (0.7-1.1cm)Aortic Cusp Exc.1.6 (1.5-2.0cm) IVSs1.1 cm LVDs2.1 (2.5-4.0cm) PWs1.0 cm Normal left ventricular chamber size, systolic function and wall motion to extent visualized. Left ventricular ejection fraction estimated to be 65 %. No evidence of left ventricular hypertrophy. No pericardial effusion. All other cardiac chamber sizes are within normal limits. Focal aortic valve sclerosis with adequate cusp excursion. Thickened mitral valve leaflets with normal excursion. Mitral annulus and aortic root calcification. Normal pulmonic valve structure. Normal tricuspid valve structure. IVC at normal size with physiologic collapse. A color flow and spectral Doppler study was performed and revealed: No aortic insufficiency. Trace mitral regurgitation. Mitral diastolic velocities suggest reduced left ventricular relaxation c/w mild LV diastolic dysfunction (Grade I ). Trace tricuspid regurgitation. Tricuspid systolic velocities suggests peak right ventricular systolic pressure of 25 mmHg.
--- NOTE | 2019-06-28 14:00 | NUR ---
NURSE NOTES: VS stable. Pt is currently asleep with no oral bleed noted. IV fluid 0.45NS and Sandostatin are still being infused. Family at bedside.
[2019-06-28] MEDS ORDERED: Succinylcholine 20mg/ml 10ml vial ONE (14:44)
--- NOTE | 2019-06-28 16:18 | Consultation ---
History of Present Illness General Chief Complaint: Vomiting Referring physician: MATTHEW Reason for Consultation: UGIB Present Illness Allergies: Coded Allergies: No Known Allergies (Unverified , 06/27/19) Medication History No Active Prescriptions or Reported Meds Patient History Healthcare decision maker PRABHU RAMIREZ Resuscitation status Full Code Advanced Directive on File No Physical Exam Last 24 Hour Vital Signs Date Time Temp Pulse Resp B/P (MAP) Pulse Ox O2 Delivery O2 Flow Rate FiO2 06/28/19 15:00 106 23 114/56 (75) 99 06/28/19 14:44 96 16 45 06/28/19 14:00 94 16 90/52 (65) 98 06/28/19 13:49 45 06/28/19 13:00 94 16 110/58 (75) 100 06/28/19 12:46 95 16 45 06/28/19 12:00 Mechanical Ventilator 06/28/19 12:00 95 06/28/19 12:00 97.7 94 16 115/58 (77) 100 06/28/19 11:00 95 17 110/56 (74) 100 06/28/19 10:35 91 16 45 06/28/19 10:30 92 16 93/52 (66) 100 06/28/19 10:21 97.5 06/28/19 10:00 90 16 73/47 (56) 99 06/28/19 09:30 91 16 61/37 (45) 99 06/28/19 09:00 99 16 88/50 (63) 99 06/28/19 08:40 98 18 45 45 06/28/19 08:40 98 06/28/19 08:00 Mechanical Ventilator 06/28/19 08:00 101 06/28/19 08:00 97.5 98 16 81/47 (58) 99 06/28/19 07:01 101 18 50 06/28/19 07:00 101 18 111/63 (79) 100 06/28/19 06:00 99 16 107/61 (76) 100 06/28/19 05:18 101 16 100 06/28/19 05:09 Mechanical Ventilator 06/28/19 05:05 100 16 116/59 (78) 100 06/28/19 04:32 50 06/28/19 04:31 98 06/28/19 04:27 97.5 98 16 123/68 (86) 100 8/22/19 04:00 98.4 96 16 114/57 100 Mechanical Ventilator 100 06/28/19 03:00 98.4 96 16 114/57 100 Mechanical Ventilator 100 06/28/19 02:40 96 19 100 06/28/19 02:30 98.4 86 16 97/52 100 Mechanical Ventilator 100 06/28/19 02:00 98.2 86 17 86/40 100 Mechanical Ventilator 100 06/28/19 01:30 98.2 89 17 55/35 100 Mechanical Ventilator 100 06/28/19 01:05 91 17 98 Mechanical Ventilator 100 06/28/19 01:00 98.2 109 17 65/36 100 Mechanical Ventilator 100 06/28/19 00:54 91 17 100 06/28/19 00:30 98.2 108 18 107/50 100 Mechanical Ventilator 100 06/28/19 00:00 98.2 109 18 61/32 98 Room Air 06/27/19 23:45 125 18 Room Air 06/27/19 23:32 98.2 125 18 86/46 (59) 98 Room Air Intake and Output 06/27/19 06/28/19 19:00 07:00 Intake Total 864 ml Output Total 0 ml Balance 864 ml Intake Oral 0 ml IV Total 97 ml Blood Product 767 ml Output Urine Total 0 ml # Voids 2 Laboratory Tests Test 06/27/19 23:40 06/28/19 00:30 06/28/19 01:30 06/28/19 02:28 White Blood Count 8.1 K/UL (4.8-10.8) Red Blood Count 2.19 M/UL (4.20-5.40) L Hemoglobin 7.4 G/DL (12.0-16.0) L Hematocrit 21.4 % (37.0-47.0) L Mean Corpuscular Volume 98 FL (80-99) Mean Corpuscular Hemoglobin 33.6 PG (27.0-31.0) H Mean Corpuscular Hemoglobin Concent 34.3 G/DL (32.0-36.0) Red Cell Distribution Width 13.5 % (11.6-14.8) Platelet Count 53 K/UL (150-450) L Mean Platelet Volume 9.5 FL (6.5-10.1) Neutrophils (%) (Auto) % (45.0-75.0) Lymphocytes (%) (Auto) % (20.0-45.0) Monocytes (%) (Auto) % (1.0-10.0) Eosinophils (%) (Auto) % (0.0-3.0) Basophils (%) (Auto) % (0.0-2.0) Prothrombin Time 14.8 SEC (9.30-11.50) H Prothromb Time International Ratio 1.4 (0.9-1.1) H Activated Partial Thromboplast Time 33 SEC (23-33) Sodium Level 143 MMOL/L (136-145) Potassium Level 4.2 MMOL/L (3.5-5.1) Chloride Level 110 MMOL/L (98-107) H Carbon Dioxide Level 22 MMOL/L (21-32) Anion Gap 11 mmol/L (5-15) Blood Urea Nitrogen 32 mg/dL (7-18) H Creatinine 0.8 MG/DL (0.55-1.30) Estimat Glomerular Filtration Rate > 60 mL/min (>60) Glucose Level 391 MG/DL (74-106) H Lactic Acid Level 6.70 mmol/L (0.4-2.0) H 5.90 mmol/L (0.66-2.22) H Calcium Level 7.9 MG/DL (8.5-10.1) L Total Bilirubin 2.3 MG/DL (0.2-1.0) H Direct Bilirubin 0.4 MG/DL (0.0-0.3) H Aspartate Amino Transf (AST/SGOT) 40 U/L (15-37) H Alanine Aminotransferase (ALT/SGPT) 29 U/L (12-78) Alkaline Phosphatase 155 U/L (46-116) H Total Creatine Kinase 76 U/L (26-308) Creatine Kinase MB 1.7 NG/ML (0.0-3.6) Creatine Kinase MB Relative Index 2.2 Troponin I 0.062 ng/mL (0.000-0.056) Pro-B-Type Natriuretic Peptide 54 pg/mL (0-125) Total Protein 4.8 G/DL (6.4-8.2) L Albumin 1.9 G/DL (3.4-5.0) L Globulin 2.9 g/dL Albumin/Globulin Ratio 0.7 (1.0-2.7) L Lipase 317 U/L (73-393) Lab Scanned Report Blood Bank/Transfusion Arterial Blood pH 7.275 (7.350-7.450) Arterial Blood Partial Pressure CO2 32.6 mmHg (35.0-45.0) L Arterial Blood Partial Pressure O2 310.8 mmHg (75.0-100.0) H Arterial Blood HCO3 14.8 mmol/L (22.0-26.0) *L Arterial Blood Oxygen Saturation 98.7 % (95-100) Arterial Blood Base Excess -11 (-2-2) *L James Test Positive Test 06/28/19 08:15 06/28/19 14:40 White Blood Count 12.3 K/UL (4.8-10.8) #H Red Blood Count 4.11 M/UL (4.20-5.40) L Hemoglobin 12.4 G/DL (12.0-16.0) # Hematocrit 36.6 % (37.0-47.0) #L Mean Corpuscular Volume 89 FL (80-99) # Mean Corpuscular Hemoglobin 30.2 PG (27.0-31.0) Mean Corpuscular Hemoglobin Concent 33.9 G/DL (32.0-36.0) Red Cell Distribution Width 13.6 % (11.6-14.8) Platelet Count 37 K/UL (150-450) L Mean Platelet Volume 12.2 FL (6.5-10.1) H Neutrophils (%) (Auto) % (45.0-75.0) Lymphocytes (%) (Auto) % (20.0-45.0) Monocytes (%) (Auto) % (1.0-10.0) Eosinophils (%) (Auto) % (0.0-3.0) Basophils (%) (Auto) % (0.0-2.0) Differential Total Cells Counted 100 Neutrophils % (Manual) 94 % (45-75) H Lymphocytes % (Manual) 4 % (20-45) L Monocytes % (Manual) 2 % (1-10) Eosinophils % (Manual) 0 % (0-3) Basophils % (Manual) 0 % (0-2) Band Neutrophils 0 % (0-8) Platelet Estimate Decreased L Platelet Morphology Normal Red Blood Cell Morphology Normal Lactic Acid Level 4.70 mmol/L (0.4-2.0) H 3.80 mmol/L (0.4-2.0) H Troponin I 0.262 ng/mL (0.000-0.056) 0.165 ng/mL (0.000-0.056) Microbiology Date/Time Source Procedure Growth Status 06/28/19 03:00 Rectum Received Height (Feet): 5 Height (Inches): 2.00 Weight (Pounds): 111 Medications Current Medications Medications (Trade) Dose Ordered Sig/Naseem Route PRN Reason Start Time Stop Time Status Last Admin Dose Admin Ceftriaxone Sodium 1 gm/ Dextrose 55 ml @ 110 mls/hr DAILY IVPB 06/28/19 11:00 07/05/19 10:59 06/28/19 11:51 Chlorhexidine Gluconate (Mer-Hex 2%) 1 applic DAILY@2000 TOPIC 06/28/19 20:00 07/28/19 19:59 Dextrose (Dextrose 50%) 25 ml Q30M PRN IV Hypoglycemia 06/28/19 05:00 07/28/19 04:59 Dextrose (Dextrose 50%) 50 ml Q30M PRN IV Hypoglycemia 06/28/19 05:00 07/28/19 04:59 Insulin Aspart (NovoLOG) BEFORE MEALS AND HS SUBQ 06/28/19 06:30 07/28/19 06:29 06/28/19 06:41 Morphine Sulfate (Morphine Sulfate) 2 mg Q4H PRN IVP For Pain 06/28/19 09:15 07/05/19 09:14 06/28/19 09:51 Norepinephrine Bitartrate 4 mg/ Dextrose 250 ml @ 0 mls/hr Q24H IV 06/28/19 10:30 07/28/19 10:29 Octreotide Acetate 500 mcg/ Sodium Chloride 500 ml @ 50 mls/hr Q10H IV 06/28/19 10:00 07/28/19 09:59 06/28/19 10:30 Pantoprazole 80 mg/Sodium Chloride 250 ml @ 25 mls/hr Q10H IV 06/28/19 10:00 07/28/19 09:59 06/28/19 09:42 Sodium Chloride 1,000 ml @ 75 mls/hr [id number] IV 06/28/19 05:00 07/28/19 04:59 06/28/19 05:22 Assessment/Plan Assessment/Plan: Hematology Consultation REQ MD:Colt Hsieh RFC: Low plt and anemia DOS: 06/28/19 ID Called by Aileen Hsieh to evaluate this patient 69y old female presents by paramedics for reports of vomiting blood throughout the day Patient herself reports starting in the morning time family reports that they saw her around 1:00 And patient had told him about vomiting blood patient has had recent blood transfusion and upper endoscopy with intervention that is not specific to the family This is within the last 1 month Patient's family also reports patient has liver disease and esophageal varices Patient denies any abdominal pain on further questioning also reports dark Stools GI consulted for reported UGIB. Pt seen, awake alert intubated in ICU, family at bedside. According to the family, the patient had multiple episodes of coffee grounds in the ED and in unit. They report a history of cirrhosis x7 years, in which they denied any ETOH use or abuse. Her last endoscopy was performed approximately 1 month ago, noted with Esophageal Varices. Labs reviewed. Heme consulted given low platelet blood and for further eval and care. Home Meds No Active Prescriptions or Reported Meds Allergies: No Known Allergies (Unverified , 06/27/19) Patient History Limited by: medical condition History Provided By: Family Member PMH Narrative Patient History Past Medical History: see triage record Last Menstrual Period: n/a Reviewed Nursing Documentation: PMH: Agreed; PSxH: Agreed Nursing Documentation-PMH Past Medical History: No History, Except For Hx Diabetes: Yes Review of Systems All Other Systems: limited Physical Exam: Vitals: reviewed General Appearance: NAD HEENT: normocephalic, atraumatic ++VENT Respiratory/Chest: normal breath sounds bilaterally Cardiovascular/Chest: normal peripheral pulses, normal rate Abdomen: normal bowel sounds, soft, nontender Extremities: normal range of motion Labs: noted Assessment and Recs: # Anemia of GI bleed -- patient presents with occult+ bleeding --> as per GI eval, may need endoscopy --> has been started on ppi --> cea has been ordered --> Hgb goal >7. Transfuse prn. (s/p 4 units prbc) --> Epogen or iron at this time is not particularly indicated --> Medications have been reviewed --> continue ppi and octreotide # Thrombocytopenia - potential causes multifactorial, evaluate liver and viral etiologies to begin, also could be related to underlying medications patient has received. In htis case is due to etoh abuse, esoph varices --> Hep panel and HIV ordered --> US abd to evaluate for cirrhosis and mass eval --> Peripheral smear ordered to evaluate for blasts /schistocytes --> abx and other meds have been reviewed --> ok for ppx if plt >50k w/ either heparin or lovenox --> Transfuse if Plt < 20k and fever, or if Plt < 10k without fever --> EGD per gi # Varices, esophageal --> potential rupture as per gi recs # Cirrhosis # REsp failure on vent --> per pulm weaning sbt The timing of this note does not necessarily reflect the time of the patient was seen. GREATLY APPRECIATE CONSULTATION. Anthony Chaudhary MD Jun 28, 2019 16:18
--- NOTE | 2019-06-28 16:26 | NUR ---
NURSE NOTES: Consent has been received/signed by pt's daughter for EGD and consent filed in the paper chart. Pt was administered another Morphine IVP as PRN order for severe abdominal pain. Order also was received for Zofran IVP and processed, will be administered as PRN for nausea/vomiting. Pt's family is now at bedside. Still awaiting for blood bank to contact regarding platelet supply for platelet/transfusion.
--- NOTE | 2019-06-28 16:49 | Diagnostic Imaging Report ---
Indication: Chest pain, vomiting blood Technique: One view of the chest Comparison: none Findings: 6 mm nodule projects in the right midlung, possibly but not definitely calcified. No definite infiltrates or effusions The heart is upper limits normal in size. No focal airspace consolidation. There is mild central bronchial wall thickening. Impression: No definite acute process 6 mm right mid lung nodular opacity, possibly but not definitely calcified. Consider CT for further evaluation if clinically indicated. Patient's nurse was notified of this finding at the time of interpretation
--- NOTE | 2019-06-28 16:56 | NUR ---
NURSE NOTES: Radiologist called nurse's station and reported 6mm right mid lung nodular opacity. I reported this finding to Dr Hsieh. Addendum: 06/28/19 at 1953 by MUNA LAW RN No new orders received regarding this result.
[2019-06-28] MEDS ORDERED: Phytonadione 10 MG in D5W 55 ML IVPB SCH (17:00)
--- NOTE | 2019-06-28 18:00 | NUR ---
NURSE NOTES: Pt was cleaned, gown/linens changed. Oral care done. After cleaning and repositioning the pt, it was noted that oral bleeding restarted again. Pt has been suctioned and head of bed elevated which assists with stopping the bleed, as evidenced earlier today. Family (daughter) has been updated. VS stable while pt is now on Levophed at 8mcg/min.
--- NOTE | 2019-06-28 18:16 | Consultation ---
History of Present Illness General Date patient seen: Jun 28, 2019 Chief Complaint: Vomiting Referring physician: MATTHEW Reason for Consultation: UGIB Present Illness HPI 69y old female with history of cirrhosis presented with reports of vomiting blood throughout the day. per report 1 day of bloody emesis and family notified. has history of similar event requiring endoscopic intervention but records unavailable. Patient's family also reports patient has liver disease and esophageal varices. patient currently intubated in ICU. family at bedside. surgery called to assist with care in case of massive bleeding. patient seen, chart reviewed, patient examined. Allergies: Coded Allergies: No Known Allergies (Unverified , 06/27/19) Medication History No Active Prescriptions or Reported Meds Patient History Limited by: medical condition History Provided By: Medical Record, PMD Healthcare decision maker PRABHU RAMIREZ Resuscitation status Full Code Advanced Directive on File No Past Medical/Surgical History Past Medical/Surgical History: (1) Cirrhosis (2) Varices, esophageal (3) GI bleed (4) Acute GI bleeding Review of Systems All Other Systems: negative except mentioned in HPI Physical Exam General Appearance: mild distress Lines, tubes and drains: peripheral HEENT: mucous membranes moist Neck: normal inspection Respiratory/Chest: normal breath sounds, no respiratory distress, on vent Cardiovascular/Chest: normal rate Abdomen: soft, no mass, distended Extremities: normal inspection Skin Exam: warm/dry Neurologic: unresponsiveness Last 24 Hour Vital Signs Date Time Temp Pulse Resp B/P (MAP) Pulse Ox O2 Delivery O2 Flow Rate FiO2 06/28/19 16:51 92 16 45 06/28/19 16:48 97.7 06/28/19 16:30 97 22 119/51 (73) 98 06/28/19 16:00 97.7 95 16 89/58 (68) 98 06/28/19 16:00 45 06/28/19 16:00 Mechanical Ventilator 06/28/19 15:00 106 23 114/56 (75) 99 06/28/19 14:44 96 16 45 06/28/19 14:00 94 16 90/52 (65) 98 06/28/19 13:49 45 06/28/19 13:00 94 16 110/58 (75) 100 06/28/19 12:46 95 16 45 06/28/19 12:00 Mechanical Ventilator 06/28/19 12:00 95 06/28/19 12:00 97.7 94 16 115/58 (77) 100 06/28/19 11:00 95 17 110/56 (74) 100 06/28/19 10:35 91 16 45 06/28/19 10:30 92 16 93/52 (66) 100 06/28/19 10:00 90 16 73/47 (56) 99 06/28/19 09:30 91 16 61/37 (45) 99 06/28/19 09:00 99 16 88/50 (63) 99 06/28/19 08:40 98 18 45 45 06/28/19 08:40 98 06/28/19 08:00 Mechanical Ventilator 06/28/19 08:00 101 06/28/19 08:00 97.5 98 16 81/47 (58) 99 06/28/19 07:01 101 18 50 06/28/19 07:00 101 18 111/63 (79) 100 06/28/19 06:00 99 16 107/61 (76) 100 06/28/19 05:18 101 16 100 06/28/19 05:09 Mechanical Ventilator 06/28/19 05:05 100 16 116/59 (78) 100 06/28/19 04:32 50 06/28/19 04:31 98 06/28/19 04:27 97.5 98 16 123/68 (86) 100 06/28/19 04:00 98.4 96 16 114/57 100 Mechanical Ventilator 100 06/28/19 03:00 98.4 96 16 114/57 100 Mechanical Ventilator 100 06/28/19 02:40 96 19 100 06/28/19 02:30 98.4 86 16 97/52 100 Mechanical Ventilator 100 06/28/19 02:00 98.2 86 17 86/40 100 Mechanical Ventilator 100 06/28/19 01:30 98.2 89 17 55/35 100 Mechanical Ventilator 100 06/28/19 01:05 91 17 98 Mechanical Ventilator 100 06/28/19 01:00 98.2 109 17 65/36 100 Mechanical Ventilator 100 06/28/19 00:54 91 17 100 06/28/19 00:30 98.2 108 18 107/50 100 Mechanical Ventilator 100 06/28/19 00:00 98.2 109 18 61/32 98 Room Air 06/27/19 23:45 125 18 Room Air 06/27/19 23:32 98.2 125 18 86/46 (59) 98 Room Air Intake and Output 06/27/19 06/28/19 19:00 07:00 Intake Total 864 ml Output Total 0 ml Balance 864 ml Intake Oral 0 ml IV Total 97 ml Blood Product 767 ml Output Urine Total 0 ml # Voids 2 Laboratory Tests Test 06/27/19 23:40 06/28/19 00:30 06/28/19 01:30 06/28/19 02:28 White Blood Count 8.1 K/UL (4.8-10.8) Red Blood Count 2.19 M/UL (4.20-5.40) L Hemoglobin 7.4 G/DL (12.0-16.0) L Hematocrit 21.4 % (37.0-47.0) L Mean Corpuscular Volume 98 FL (80-99) Mean Corpuscular Hemoglobin 33.6 PG (27.0-31.0) H Mean Corpuscular Hemoglobin Concent 34.3 G/DL (32.0-36.0) Red Cell Distribution Width 13.5 % (11.6-14.8) Platelet Count 53 K/UL (150-450) L Mean Platelet Volume 9.5 FL (6.5-10.1) Neutrophils (%) (Auto) % (45.0-75.0) Lymphocytes (%) (Auto) % (20.0-45.0) Monocytes (%) (Auto) % (1.0-10.0) Eosinophils (%) (Auto) % (0.0-3.0) Basophils (%) (Auto) % (0.0-2.0) Prothrombin Time 14.8 SEC (9.30-11.50) H Prothromb Time International Ratio 1.4 (0.9-1.1) H Activated Partial Thromboplast Time 33 SEC (23-33) Sodium Level 143 MMOL/L (136-145) Potassium Level 4.2 MMOL/L (3.5-5.1) Chloride Level 110 MMOL/L (98-107) H Carbon Dioxide Level 22 MMOL/L (21-32) Anion Gap 11 mmol/L (5-15) Blood Urea Nitrogen 32 mg/dL (7-18) H Creatinine 0.8 MG/DL (0.55-1.30) Estimat Glomerular Filtration Rate > 60 mL/min (>60) Glucose Level 391 MG/DL (74-106) H Lactic Acid Level 6.70 mmol/L (0.4-2.0) H 5.90 mmol/L (0.66-2.22) H Calcium Level 7.9 MG/DL (8.5-10.1) L Total Bilirubin 2.3 MG/DL (0.2-1.0) H Direct Bilirubin 0.4 MG/DL (0.0-0.3) H Aspartate Amino Transf (AST/SGOT) 40 U/L (15-37) H Alanine Aminotransferase (ALT/SGPT) 29 U/L (12-78) Alkaline Phosphatase 155 U/L (46-116) H Total Creatine Kinase 76 U/L (26-308) Creatine Kinase MB 1.7 NG/ML (0.0-3.6) Creatine Kinase MB Relative Index 2.2 Troponin I 0.062 ng/mL (0.000-0.056) Pro-B-Type Natriuretic Peptide 54 pg/mL (0-125) Total Protein 4.8 G/DL (6.4-8.2) L Albumin 1.9 G/DL (3.4-5.0) L Globulin 2.9 g/dL Albumin/Globulin Ratio 0.7 (1.0-2.7) L Lipase 317 U/L (73-393) Lab Scanned Report Blood Bank/Transfusion Arterial Blood pH 7.275 (7.350-7.450) Arterial Blood Partial Pressure CO2 32.6 mmHg (35.0-45.0) L Arterial Blood Partial Pressure O2 310.8 mmHg (75.0-100.0) H Arterial Blood HCO3 14.8 mmol/L (22.0-26.0) *L Arterial Blood Oxygen Saturation 98.7 % (95-100) Arterial Blood Base Excess -11 (-2-2) *L James Test Positive Test 06/28/19 08:15 06/28/19 14:40 White Blood Count 12.3 K/UL (4.8-10.8) #H Red Blood Count 4.11 M/UL (4.20-5.40) L Hemoglobin 12.4 G/DL (12.0-16.0) # Hematocrit 36.6 % (37.0-47.0) #L Mean Corpuscular Volume 89 FL (80-99) # Mean Corpuscular Hemoglobin 30.2 PG (27.0-31.0) Mean Corpuscular Hemoglobin Concent 33.9 G/DL (32.0-36.0) Red Cell Distribution Width 13.6 % (11.6-14.8) Platelet Count 37 K/UL (150-450) L Mean Platelet Volume 12.2 FL (6.5-10.1) H Neutrophils (%) (Auto) % (45.0-75.0) Lymphocytes (%) (Auto) % (20.0-45.0) Monocytes (%) (Auto) % (1.0-10.0) Eosinophils (%) (Auto) % (0.0-3.0) Basophils (%) (Auto) % (0.0-2.0) Differential Total Cells Counted 100 Neutrophils % (Manual) 94 % (45-75) H Lymphocytes % (Manual) 4 % (20-45) L Monocytes % (Manual) 2 % (1-10) Eosinophils % (Manual) 0 % (0-3) Basophils % (Manual) 0 % (0-2) Band Neutrophils 0 % (0-8) Platelet Estimate Decreased L Platelet Morphology Normal Red Blood Cell Morphology Normal Lactic Acid Level 4.70 mmol/L (0.4-2.0) H 3.80 mmol/L (0.4-2.0) H Troponin I 0.262 ng/mL (0.000-0.056) 0.165 ng/mL (0.000-0.056) Carcinoembryonic Antigen Pending HIV (1&2) Antibody Rapid Negative (NEGATIVE) Microbiology Date/Time Source Procedure Growth Status 06/28/19 03:00 Rectum Received Height (Feet): 5 Height (Inches): 2.00 Weight (Pounds): 111 Medications Current Medications Medications (Trade) Dose Ordered Sig/Naseem Route PRN Reason Start Time Stop Time Status Last Admin Dose Admin Ceftriaxone Sodium 1 gm/ Dextrose 55 ml @ 110 mls/hr DAILY IVPB 06/28/19 11:00 07/05/19 10:59 06/28/19 11:51 Chlorhexidine Gluconate (Mer-Hex 2%) 1 applic DAILY@2000 TOPIC 06/28/19 20:00 07/28/19 19:59 Dextrose (Dextrose 50%) 25 ml Q30M PRN IV Hypoglycemia 06/28/19 05:00 07/28/19 04:59 Dextrose (Dextrose 50%) 50 ml Q30M PRN IV Hypoglycemia 06/28/19 05:00 07/28/19 04:59 Insulin Aspart (NovoLOG) BEFORE MEALS AND HS SUBQ 06/28/19 06:30 07/28/19 06:29 06/28/19 06:41 Morphine Sulfate (Morphine Sulfate) 2 mg Q4H PRN IVP For Pain 06/28/19 09:15 07/05/19 09:14 06/28/19 16:18 Norepinephrine Bitartrate 4 mg/ Dextrose 250 ml @ 0 mls/hr Q24H IV 06/28/19 10:30 07/28/19 10:29 Octreotide Acetate 500 mcg/ Sodium Chloride 500 ml @ 50 mls/hr Q10H IV 06/28/19 10:00 07/28/19 09:59 06/28/19 10:30 Ondansetron HCl (Zofran) 4 mg Q6H PRN IVP Nausea & Vomiting 06/28/19 16:30 07/28/19 16:29 06/28/19 17:15 Pantoprazole 80 mg/Sodium Chloride 250 ml @ 25 mls/hr Q10H IV 06/28/19 10:00 07/28/19 09:59 06/28/19 09:42 Phytonadione 10 mg/Dextrose 56 ml @ 112 mls/hr ONCE IVPB 06/28/19 17:00 06/28/19 19:00 06/28/19 17:14 Sodium Chloride 1,000 ml @ 75 mls/hr [id number] IV 06/28/19 05:00 07/28/19 04:59 06/28/19 17:14 Assessment/Plan Problem List: (1) Cirrhosis ICD Codes: K74.60 - Unspecified cirrhosis of liver SNOMED: 23502224 (2) Varices, esophageal ICD Codes: I85.00 - Esophageal varices without bleeding SNOMED: 51221837 (3) GI bleed Assessment & Plan: 69F with acute GI bleed. etiology likely prior varices anemia on admission and transfused currently in ICU intubated on support GI plan for EGD soon after eval for cardiac npo iv fluids ppi and oct gtt will follow with recs thank you ICD Codes: K92.2 - Gastrointestinal hemorrhage, unspecified SNOMED: 28085085 (4) Acute GI bleeding ICD Codes: K92.2 - Gastrointestinal hemorrhage, unspecified SNOMED: 47392385 Zaid Wong Jun 28, 2019 18:16
--- NOTE | 2019-06-28 18:31 | Consultation ---
DATE OF CONSULTATION: 06/28/2019 PULMONARY CONSULTATION CONSULTING PHYSICIAN: James Zeng M.D. HISTORY OF PRESENT ILLNESS: This is a 69-year-old female with history of gastric varices and liver cirrhosis. She was brought in by paramedics with hematemesis. She has previously had blood transfusion and endoscopies. She was intubated and then placed in ICU. Overnight, she has continued to have hematemesis. There are plans in place for endoscopy. The patient is on Sandostatin and Protonix. I have also added Levophed and fluids. PAST MEDICAL HISTORY: Notable for diabetes mellitus, liver cirrhosis, history of gastric varices, previous GI bleed. ALLERGIES: None noted. HOME MEDICATIONS: Reviewed and reconciled in the chart. REVIEW OF SYSTEMS: Unobtainable. PHYSICAL EXAMINATION: GENERAL: Reveals a 69-year-old female. HEENT: Unremarkable. Endotracheal tube is in place. There is heavy oral bleeding. CHEST: Decreased breath sounds bilaterally with normal heart sounds. ABDOMEN: Soft. EXTREMITIES: There is no edema. LABORATORY DATA: Lab testing at this time is notable for hemoglobin after transfusion of 12.4, white count 12.3, platelet count is 37,000. Lactic acid 4.7, decreased from 6.7 previously. Troponin 0.26. ABG, pH 7.27, pCO2 of 32, pO2 of 310. INR 1.4. IMAGING: Noncontributory. IMPRESSION: 1. Respiratory failure. 2. Upper GI bleed, likely gastric varices. 3. Diabetes mellitus. 4. Anemia. DISCUSSION: The patient needs an urgent endoscopy. Discussed with GI. We will start Levophed, IV fluids. Continue Protonix and octreotide. Prognosis grave. Discussed carefully. James Zeng M.D. DR: MAGO JOB#: [id number] CC:
--- NOTE | 2019-06-28 19:30 | NUR ---
HAND-OFF: Report given to Ash HOYOS. Endorsed plan of care.
[2019-06-28] MEDS: Dyna-Hex 2% Top Sol 2oz TOPIC SCH (19:46)
[2019-06-28] MEDS ORDERED: Dyna-Hex 2% Top Sol 2oz TOPIC SCH (20:00)
--- NOTE | 2019-06-28 20:00 | NUR ---
NURSE NOTES: Received change of shift report from Cammy HOYOS. Pt is awake, alert, orally intubated, responsive and able to follow commands. Pt is Brazilian speaking, family is at bedside. ETT 8.0 at 21cm right lipline with vent settings AC16, VT550, FIO2 45% with O2Sat at 100% and bilateral inspiratory/expiratory diminished lung sounds. Bilateral peripheral weak pulses are noted on palpation. Pt has left femoral TLC currently with IV fluid infusing 0.45% NS at 75ml/hour and Sandostatin and Protonix gtt as ordered. Temp 97.9F axillary. Abdomen is large, round, tender to touch with hypoactive bowel sounds in all quadrants. Pt reports severe abdominal pain 5/10. Pt has external female-urinary catheter in place, with small dark yellow urine output. Skin is intact. Bed is locked with three side rails up in lowest position and call light within reach. Will continue to monitor pt and follow plan of care per MD orders and protocol.
--- NOTE | 2019-06-28 22:00 | NUR ---
NURSE NOTES: Patient repositioned and given oral care. Patients BP for now is stable. Vitals have been stable. Family at bedside. Scheduled meds given as ordered.
[2019-06-29] VITALS (41 sets, daily range): BP systolic 68–141; BP diastolic 37–70
--- NOTE | 2019-06-29 | NUR ---
NURSE NOTES: Patient has 1 large black BM with clots. Patient was cleaned and repositioned. Patient having transient hypotension episodes. Recycle BP and BP goes back to normal range. Levophed is off but on standby. Central line dressing was changed again. Still waiting for Platelets to arrive from blood bank.
--- NOTE | 2019-06-29 02:00 | NUR ---
NURSE NOTES: Patient agitated and non-compliant. Trying to remove ETT. Non-behavior soft wrist restraints initiated for patient safety.
[2019-06-29] MEDS: Morphine Sulfate 2mg/ml Inj(IV/IM USE ONLY) IVP PRN (02:29)
--- NOTE | 2019-06-29 04:00 | NUR ---
NURSE NOTES: Patient repositioned and given oral care. Patient given bed bath. Patient had bloody black stool. Blood Bank called back updating me that Platelets will be arriving in 4 hours. Patient placed back on low dose Levophed gtt due to hypotension.
[2019-06-29 04:29] LABS: HEMATOCRIT 25.8 % (37.0-47.0); HEMOGLOBIN 8.8 G/DL (12.0-16.0); MEAN CORPUSCULAR VOLUME 90 FL (80-99); PLATELET COUNT 48 K/UL (150-450); RED BLOOD COUNT 2.85 M/UL (4.20-5.40); RED CELL DISTRIBUTION WIDTH 14.9 % (11.6-14.8); WHITE BLOOD COUNT 19.3 K/UL (4.8-10.8)
[2019-06-29 04:59] LABS: INR 1.4 (0.9-1.1)
[2019-06-29 05:23] LABS: ALANINE AMINOTRANSFERASE 726 U/L (12-78); ALBUMIN 1.7 G/DL (3.4-5.0); ALBUMIN/GLOBULIN RATIO 0.7 (1.0-2.7); ALKALINE PHOSPHATASE 140 U/L (46-116); ANION GAP 11 mmol/L (5-15); ASPARTATE AMINO TRANSFERASE 1421 U/L (15-37); BILIRUBIN,TOTAL 1.8 MG/DL (0.2-1.0); BLOOD UREA NITROGEN 50 mg/dL (7-18); CALCIUM 6.8 MG/DL (8.5-10.1); CARBON DIOXIDE 17 MMOL/L (21-32); CHLORIDE 116 MMOL/L (98-107); FERRITIN 92 NG/ML (8-388); POTASSIUM 4.4 MMOL/L (3.5-5.1); SODIUM 144 MMOL/L (136-145)
[2019-06-29] MEDS: Pantoprazole 80 MG in NS 250 ML IV SCH ×2 (05:49→16:58)
[2019-06-29] MEDS: Octreotide Acetate 500 MCG in Sodium Chloride 499 ML IV SCH ×2 (05:49→16:59)
[2019-06-29] MEDS: NovoLOG Insulin Flexpen SUBQ SCH ×4 (05:50→22:46)
--- NOTE | 2019-06-29 06:00 | NUR ---
NURSE NOTES: Patient currently on 2 mcg of Levophed. Patient is sleeping at this time, no distress at this time or agitation. Patient is clean and dry. Repositioned patient and gave oral care.
[2019-06-29 06:28] LABS: % IRON SATURATION 18 % (15-50); BILIRUBIN,DIRECT 0.4 MG/DL (0.0-0.3); IRON 34 ug/dL (50-175); TOTAL IRON BINDING CAPACITY 188 ug/dL (250-450)
--- NOTE | 2019-06-29 06:46 | NUR ---
RESPIRATORY NOTE: Received pt on vent setting: AC 16-550ml-45%FiO2- no peep. Pt is intubated with ETT size 8.0 @ 20cm lips line, secured by anchor fast. pt is awake, alert, Mauritian speaking, resting comfortably in the bed, no SOB or resp distress noted. [place] clear diminished breath sounds, suctioned small amounts of thick/thin blood brown ribera secretions without incidents. Alarms are set and audible, vent is plugged into the red outlet, ambu bag @bedside. Family member at bedside. will continue to monitor and sxn q2h and as needed. Addendum: 06/29/19 at 1156 by Eugene Hartley Henley RT Titrated FiO2 down to 35%, saturates at 96%. ROMAIN velasco.
--- NOTE | 2019-06-29 07:10 | NUR ---
NURSE NOTES: blood bank called to notify me that platelet bag arrived.
--- NOTE | 2019-06-29 07:14 | NUR ---
HAND-OFF: Report given to Cammy HOYOS.
--- NOTE | 2019-06-29 07:15 | NUR ---
NURSE NOTES: Received change of shift report from Ash HOYOS. Pt is orally intubated; ETT 8.0 at 20cm right lipline with vent settings AC16, VT550, FIO2 35% with O2Sat at 100%. Bilateral inspiratory/expiratory diminished lung sounds auscultated with noted rhonchi. child monitor displays ST with heart rate in the 110's with noted peripheral edema and bounding pulses. Pt has left femoral TLC currently with IV fluid infusing Levophed at 2mcg/min, 0.45% NS at 75ml/hour, Protonix and Sandostatin drips as ordered. Abdomen is large, round, slightly hard and tender to touch with hypoactive bowel sounds in all quadrants. Pt has external female-urinary catheter in place, with small dark yellow urine output. Skin is intact. Bilateral soft wrist restraints are in place to prevent pt from self extubation as pt is noted to be mentally declining into confusion and was observed to be attempting to pull out ET tube. Bed is locked with three side rails up in lowest position and call light within reach. Will continue to monitor pt and follow plan of care per MD orders and protocol.
--- NOTE | 2019-06-29 08:00 | NUR ---
NURSE NOTES: Dr Zeng contacted the nurse's station and instructed to increase Levophed dose to maintain higher BP for improved tissue perfusion. aware of this AM's lab results. Awaiting for EGD as planned/scheduled for 1300 today.
--- NOTE | 2019-06-29 08:12 | Pulmonology Progress Note ---
Assessment/Plan Assessment/Plan IMPRESSION: 1. Respiratory failure. Will maintain AC mode; fiO2 35% 2. Upper GI bleed, likely gastric varices. For EGD today 3. Diabetes mellitus. 4. Anemia. Significant drop in Hgb last 24 hours 5. Thrombocytopenia; for platelet transfusion today 6. Likely hepatic encephalopathy DISCUSSION: Continue Levophed, IV fluids. Continue Protonix and octreotide. Advised RN to increase levophed for higher BP; pt has had an increase in lactic acid Maintain AC mode Will need lactulose after EGD James Zeng M.D. Subjective Interval Events: Remains intubated; Hgb now 8.5 from 12.4; for EGD today; confused Constitutional: Reports: no symptoms HEENT: Repors: no symptoms Respiratory: Reports: no symptoms Cardiovascular: Reports: no symptoms Gastrointestinal/Abdominal: Reports: no symptoms Genitourinary: Reports: no symptoms Allergies: Coded Allergies: No Known Allergies (Unverified , 06/27/19) Objective Last 24 Hour Vital Signs Date Time Temp Pulse Resp B/P (MAP) Pulse Ox O2 Delivery O2 Flow Rate FiO2 06/29/19 07:00 106 16 101/49 (66) 95 06/29/19 07:00 101/49 06/29/19 06:46 108 16 35 06/29/19 06:30 101 16 96/48 (64) 99 06/29/19 06:00 105 16 132/59 (83) 100 06/29/19 06:00 100/59 06/29/19 05:30 108 16 117/64 (81) 100 06/29/19 05:20 106 16 45 06/29/19 05:00 107 15 114/47 (69) 100 06/29/19 05:00 132/59 06/29/19 04:30 106 16 108/55 (72) 100 06/29/19 04:00 45 06/29/19 04:00 99.3 98 16 68/43 (51) 100 06/29/19 04:00 106 06/29/19 04:00 108/55 06/29/19 04:00 Mechanical Ventilator 06/29/19 03:30 103 16 84/49 (61) 98 06/29/19 03:00 104 16 119/56 (77) 98 06/29/19 03:00 68/29 06/29/19 02:49 117 21 45 06/29/19 02:00 102 16 111/70 (84) 100 06/29/19 01:29 103 20 45 06/29/19 01:00 96 16 82/48 (59) 98 06/29/19 00:00 100 06/29/19 00:00 45 06/29/19 00:00 Mechanical Ventilator 06/29/19 00:00 98.5 104 25 105/58 (74) 98 06/28/19 23:22 99 16 45 06/28/19 23:00 96 17 81/51 (61) 98 06/28/19 22:00 103 16 113/89 (97) 99 06/28/19 21:47 101 17 45 06/28/19 21:00 103 21 111/60 (77) 99 06/28/19 20:30 100 17 116/101 (106) 98 06/28/19 20:00 106 06/28/19 20:00 45 06/28/19 20:00 Mechanical Ventilator 06/28/19 20:00 97.9 105 15 121/53 (75) 98 06/28/19 19:38 102 16 45 06/28/19 19:30 106 21 128/68 (88) 98 06/28/19 19:00 55/37 06/28/19 19:00 100 16 93/53 (66) 97 06/28/19 18:30 99 16 104/58 (73) 96 06/28/19 18:15 103 19 150/65 (93) 98 06/28/19 18:00 96 16 123/55 (77) 99 06/28/19 18:00 104/58 06/28/19 17:30 91 16 132/59 (83) 100 06/28/19 17:25 91 16 123/61 (81) 99 06/28/19 17:06 90 16 101/55 (70) 97 06/28/19 17:00 101/55 06/28/19 17:00 88 16 82/51 (61) 97 06/28/19 16:51 92 16 45 06/28/19 16:48 97.7 06/28/19 16:30 97 22 119/51 (73) 98 06/28/19 16:00 97.7 95 16 89/58 (68) 98 06/28/19 16:00 45 06/28/19 16:00 Mechanical Ventilator 06/28/19 16:00 94 06/28/19 15:00 106 23 114/56 (75) 99 06/28/19 14:44 96 16 45 06/28/19 14:00 94 16 90/52 (65) 98 06/28/19 13:49 45 06/28/19 13:00 94 16 110/58 (75) 100 06/28/19 12:46 95 16 45 06/28/19 12:00 Mechanical Ventilator 06/28/19 12:00 95 06/28/19 12:00 97.7 94 16 115/58 (77) 100 06/28/19 11:00 95 17 110/56 (74) 100 06/28/19 10:35 91 16 45 06/28/19 10:30 92 16 93/52 (66) 100 06/28/19 10:00 90 16 73/47 (56) 99 06/28/19 09:30 91 16 61/37 (45) 99 06/28/19 09:00 99 16 88/50 (63) 99 06/28/19 08:40 98 18 45 45 06/28/19 08:40 98 Intake and Output 06/28/19 06/29/19 19:00 07:00 Intake Total 4815.25 ml 1892.5 ml Output Total 500 ml Balance 4815.25 ml 1392.5 ml IV Total 4815.25 ml 1892.5 ml Output Urine Total 500 ml # Voids 2 3 # Bowel Movements 1 General Appearance: no acute distress HEENT: normocephalic Respiratory/Chest: chest wall non-tender Cardiovascular: normal peripheral pulses, normal rate Abdomen: normal bowel sounds, soft, non tender Extremities: no cyanosis Microbiology Date/Time Source Procedure Growth Status 06/28/19 03:00 Rectum Received Laboratory Tests 06/28/19 08:15: White Blood Count 12.3#H, Red Blood Count 4.11L, Hemoglobin 12.4#, Hematocrit 36.6#L, Mean Corpuscular Volume 89#, Mean Corpuscular Hemoglobin 30.2, Mean Corpuscular Hemoglobin Concent 33.9, Red Cell Distribution Width 13.6, Platelet Count 37L, Mean Platelet Volume 12.2H, Neutrophils (%) (Auto) , Lymphocytes (%) (Auto) , Monocytes (%) (Auto) , Eosinophils (%) (Auto) , Basophils (%) (Auto) , Differential Total Cells Counted 100, Neutrophils % (Manual) 94H, Lymphocytes % (Manual) 4L, Monocytes % (Manual) 2, Eosinophils % (Manual) 0, Basophils % ( Manual) 0, Band Neutrophils 0, Platelet Estimate DecreasedL, Platelet Morphology Normal, Red Blood Cell Morphology Normal, Lactic Acid Level 4.70H, Troponin I 0.262H 06/28/19 14:40: Lactic Acid Level 3.80H, Troponin I 0.165H, Carcinoembryonic Antigen [Pending], HIV (1&2) Antibody Rapid Negative 06/28/19 20:20: Lactic Acid Level 5.30H, Troponin I 0.097H 06/29/19 03:30: White Blood Count 19.3#H, Red Blood Count 2.85L, Hemoglobin 8.8L, Hematocrit 25.8L, Mean Corpuscular Volume 90, Mean Corpuscular Hemoglobin 31.0, Mean Corpuscular Hemoglobin Concent 34.3, Red Cell Distribution Width 14.9H, Platelet Count 48L, Mean Platelet Volume 10.1, Neutrophils (%) (Auto) , Lymphocytes (%) (Auto) , Monocytes (%) (Auto) , Eosinophils (%) (Auto) , Basophils (%) (Auto) , Neutrophils % (Manual) [Pending], Lymphocytes % (Manual) [Pending], Platelet Estimate [Pending], Platelet Morphology [Pending], Lactic Acid Level 6.70H, Plasma Hemoglobin [Pending], Reticulocyte Count [Pending], Prothrombin Time 14.3H, Prothromb Time International Ratio 1.4H, Activated Partial Thromboplast Time 37H, Sodium Level 144, Potassium Level 4.4, Chloride Level 116H, Carbon Dioxide Level 17L, Anion Gap 11, Blood Urea Nitrogen 50H, Creatinine 1.0, Estimat Glomerular Filtration Rate 55.1, Glucose Level 233#H, Calcium Level 6.8L, Iron Level 34L, Total Iron Binding Capacity 188L, Percent Iron Saturation 18, Unsaturated Iron Binding 154, Ferritin 92, Total Bilirubin 1.8H, Direct Bilirubin 0.4H, Aspartate Amino Transf (AST/SGOT) 1421H, Alanine Aminotransferase (ALT/SGPT) 726H, Alkaline Phosphatase 140H, Total Protein 4.0L , Albumin 1.7L, Globulin 2.3, Albumin/Globulin Ratio 0.7L, Vitamin B12 Level 1751H, Folate 15.6, Thyroid Stimulating Hormone (TSH) 0.549, Free Thyroxine 0.71L, Hepatitis A IgM Antibody [Pending], Hepatitis B Surface Antigen [Pending] , Hepatitis B Core IgM Antibody [Pending], Hepatitis C Antibody [Pending] Current Medications Medications (Trade) Dose Ordered Sig/Naseem Route PRN Reason Start Time Stop Time Status Last Admin Dose Admin Ceftriaxone Sodium 1 gm/ Dextrose 55 ml @ 110 mls/hr DAILY IVPB 06/28/19 11:00 07/05/19 10:59 06/28/19 11:51 Chlorhexidine Gluconate (Mer-Hex 2%) 1 applic DAILY@2000 TOPIC 06/28/19 20:00 07/28/19 19:59 06/28/19 19:46 Dextrose (Dextrose 50%) 25 ml Q30M PRN IV Hypoglycemia 06/28/19 05:00 07/28/19 04:59 Dextrose (Dextrose 50%) 50 ml Q30M PRN IV Hypoglycemia 06/28/19 05:00 07/28/19 04:59 Insulin Aspart (NovoLOG) BEFORE MEALS AND HS SUBQ 06/28/19 06:30 07/28/19 06:29 06/29/19 05:50 Morphine Sulfate (Morphine Sulfate) 2 mg Q4H PRN IVP For Pain 06/28/19 09:15 07/05/19 09:14 06/29/19 02:29 Norepinephrine Bitartrate 4 mg/ Dextrose 250 ml @ 0 mls/hr Q24H IV 06/28/19 10:30 07/28/19 10:29 06/28/19 17:00 Octreotide Acetate 500 mcg/ Sodium Chloride 500 ml @ 50 mls/hr Q10H IV 06/28/19 10:00 07/28/19 09:59 06/29/19 05:49 Ondansetron HCl (Zofran) 4 mg Q6H PRN IVP Nausea & Vomiting 06/28/19 16:30 07/28/19 16:29 06/28/19 22:07 Pantoprazole 80 mg/Sodium Chloride 250 ml @ 25 mls/hr Q10H IV 06/28/19 10:00 07/28/19 09:59 06/29/19 05:49 Sodium Chloride 1,000 ml @ 75 mls/hr [id number] IV 06/28/19 05:00 07/28/19 04:59 06/29/19 06:00 James Zeng MD Jun 29, 2019 08:12
[2019-06-29] MEDS: cefTRIAXone 1 GM in D5W 55 ML IVPB SCH (08:53)
--- NOTE | 2019-06-29 09:25 | NUR ---
RESPIRATORY NOTE: Placed pt on CPAP PS 8, no peep 35%FiO2 after pt passed weaning criteria: RSBI 23, NIF 36, saturates 98%. Pt is tolerating really well the new setting. No SOB or resp distress noted. Familly at bedside. ROMAIN Chawla made aware. Will continue to monitor pt.
--- NOTE | 2019-06-29 09:30 | NUR ---
NURSE NOTES: RT at bedside, attempted weaning from vent with settings on CPAP with pressure support 8, Peep 5, and FIO2 35%. VS stable. Pt is tolerating well.
--- NOTE | 2019-06-29 10:40 | NUR ---
NURSE NOTES: Platelet transfusion was stared as ordered. Temp 98.3F axillary. Pt remains on Levophed currently at 6mcg/min with BP 115/43, and Sinus Tachy heart rate at 110. technical sales consultant is at bedside for abdominal ultrasound. Pt's daughter is at bedside.
--- NOTE | 2019-06-29 10:45 | NUR ---
Social Service Note Patient from home, currently orally intubated. Patient independent prior to admission. Per family patient doesn't have a history of ETOH but has a diagnosis of Liver cirrhosis. Patient's contract health care provider is [facility] [phone]. Patient is a full code. Patient with multiple family members, Sara Dawson [facility] [phone] is the primary contact. Discharge placement is not determined at this time will be determined by the course of care during hospitalization. Will continue to monitor and assist as needed.
--- NOTE | 2019-06-29 10:46 | NUR ---
*--* INSURANCE *--* ALL CLINICALS AND REVIEWS HAVE BEEN FAXED TO: ERICKA/CHAZ FULLY DELEGATED TO SHANICE F/S FAXED TO SHANICE NCM: AKUA P- [phone] F- [phone]...........REVIEW/ CLINICAL
--- NOTE | 2019-06-29 10:59 | NUR ---
RD ASSESSMENT & RECOMMENDATIONS SEE CARE ACTIVITY FOR COMPLETE ASSESSMENT DAILY ESTIMATED NEEDS: Needs based on Critical care, cirrhosis/ 48kg 22-28 kcals/kg 0447-2794 total kcals 1.2-2 g protein/kg 58-96 g total protein 25-30 mL/kg 3912-0932 total fluid mLs NUTRITION DIAGNOSIS: * Swallowing difficulty R/T respiratory status as evidenced by orally intubated, NPO at this time. * Altered nutrition related lab values R/T DM, cirrhosis, GIB, clinical condition as evidenced by elev POC glu ([phone]), elev T bili, elev LFTs, trending up, low hgb (8.8 trend back down), elev LA. CURRENT DIET:NPO PO DIET RECOMMENDATIONS: WHEN SAFE FOR DIET POST EXTUBATION: LOW NA, CCHO LOW ENTERAL NUTRITION RECOMMENDATIONS: Vital AF 1.2 @ 45ml/hr x 24 hrs to provide 1080ml, 1296kcal, 81g prot, 876ml free water * IF PT REMAINS ORALLY INTUBATED AND IS MEDICALLY APPROPRIATE TO FEED -> obtain GI access, initiate Vital AF 1.2 @ 15ml/hr x 6 hrs -> Advance 10ml q 4-6 hrs as tolerated to goal rate -> HOB Over 30 degrees/ water flush per MD -> IF not HD stable, rec trophic feeding of Vital AF 1.2 @ 10-15ml/hr ADDITIONAL RECOMMENDATIONS: * Calibrated bedscale wt for accurate BCW : Bedscale wt of 122lbs vs family's stated wt of ~106lbs * Monitor liver fxn- LFTs trending up * Monitor NPO status, respiratory status -> remains intubated at this time, maintain AC mode per MD * Monitor lytes, replete as needed
--- NOTE | 2019-06-29 11:15 | NUR ---
RESPIRATORY NOTE: Back on AC mode with the same previous settings, and increase FiO2 to 40% post ABG result. ROMAIN Chawla aware. Will continue to monitor pt.
--- NOTE | 2019-06-29 12:19 | Pre-Procedure Note/Attestation ---
Pre-Procedure Note/Attestation Complete Prior to Procedure Planned Procedure: not applicable Procedure Narrative: egd Indications for Procedure Pre-Operative Diagnosis: gib Attestation I attest that I discussed the nature of the procedure; its benefits; risks and complications; and alternatives (and the risks and benefits of such alternatives ), prior to the procedure, with the patient (or the patient's legal education courses sales representative). I attest that, if there was a reasonable possibility of needing a blood transfusion, the patient (or the patient's legal education courses sales representative) was given the [facility] standardized written summary, pursuant to the [place] Blood Safety Act ([place] Health and Safety Code # 1645, as amended). I attest that I re-evaluated the patient just prior to the surgery and that there has been no change in the patient's H&P, except as documented below: Mina Garcia MD Jun 29, 2019 12:19
[2019-06-29] MEDS ORDERED: Propofol 200mg/20ml IV ONE ×2 (12:30)
--- NOTE | 2019-06-29 12:30 | NUR ---
NURSE NOTES: EGD was done at bedside by Dr Garcia, accompanied by anesthesiologist and OR/RN. Pt tolerated procedure well. VS stable while pt was maintained on Levophed at 2mcg/min during the procedure. Current dose has been increased to 6mcg/min to maintain SBP above 90.
--- NOTE | 2019-06-29 12:39 | Endoscopy Procedure Note ---
Endoscopy Procedure Note General Indication for Procedure: gib Procedures Performed: EGD Operative Findings/Diagnosis: esoph varices Specimen: none Pt Tolerated Procedure Well: Yes Estimated Blood Loss: none Anesthesia Anesthesiologist: jeffery Anesthesia: MAC Inserted Devices Implant(s) used?: No GI Core Measures 50 yrs or older w/o bx or poly: Not Applicable 10yrs. F/U recommended: Not Applicable Mina Garcia MD Jun 29, 2019 12:39
--- NOTE | 2019-06-29 12:52 | Anethesia Preoperative Eval ---
Anesthesia Pre-op PMH/ROS General Date of Evaluation: Jun 29, 2019 Time of Evaluation: 12:14 Anesthesiologist: Jose ASA Score: ASA 4 Mallampati Score Class I : Soft palate, uvula, fauces, pillars visible Class II: Soft palate, uvula, fauces visible Class III: Soft palate, base of uvula visible Class IV: Only hard plate visible Mallampati Classification: Class III Surgeon: Radha Diagnosis: GI bleed Surgical Procedure: EGD Anesthesia History: none Family History: no anesthesia problems Allergies: Coded Allergies: No Known Allergies (Unverified , 06/27/19) Medications: see eMAR Patient NPO?: Yes Past Medical History Cardiovascular: Reports: HTN; Denies: CAD, CA, valve dz, arrhythmia, other Pulmonary: Denies: asthma, COPD, SOCORRO, other Gastrointestinal/Genitourinary: Reports: GERD, other - liver cirrosis; Denies: CRI, ESRD Neurologic/Psychiatric: Reports: depression/anxiety, other - acute encephalopathy; Denies: dementia, CVA, TIA Endocrine: Reports: DM - poorly controlled; Denies: hypothyroidism, steroids, other Hematology/Immune: Reports: anemia - posthemorrhagic; Denies: DVT, bleeding disorder, other Musculoskeletal/Integumentary: Reports: OA; Denies: RA, DJD, DDD, edema, other PMH Narrative: as above PSxH Narrative: See H&P Anesthesia Pre-op Phys. Exam Physician Exam Last Vital Signs Date Time Temp Pulse Resp B/P (MAP) Pulse Ox O2 Delivery O2 Flow Rate FiO2 06/29/19 12:30 102 16 84/52 (63) 93 06/29/19 12:00 35 06/29/19 12:00 Mechanical Ventilator 06/29/19 10:30 98.3 Constitutional: NAD Neurologic: CN 2-12 intact, other - unable to obtaine Cardiovascular: RRR Respiratory: other - diminished breath sounds, oraly intubated Gastrointestinal: S/NT/ND Airway Exam Mallampati Score: Class III MO: limited ROM: limited Teeth: missing Dentures: no upper, no lower Anesthesia Pre-op A/P Labs Hematology Test 06/29/19 03:30 White Blood Count 19.3 K/UL (4.8-10.8) #H Red Blood Count 2.85 M/UL (4.20-5.40) L Hemoglobin 8.8 G/DL (12.0-16.0) L Plasma Hemoglobin Pending Hematocrit 25.8 % (37.0-47.0) L Mean Corpuscular Volume 90 FL (80-99) Mean Corpuscular Hemoglobin 31.0 PG (27.0-31.0) Mean Corpuscular Hemoglobin Concent 34.3 G/DL (32.0-36.0) Red Cell Distribution Width 14.9 % (11.6-14.8) H Platelet Count 48 K/UL (150-450) L Mean Platelet Volume 10.1 FL (6.5-10.1) Neutrophils (%) (Auto) % (45.0-75.0) Lymphocytes (%) (Auto) % (20.0-45.0) Monocytes (%) (Auto) % (1.0-10.0) Eosinophils (%) (Auto) % (0.0-3.0) Basophils (%) (Auto) % (0.0-2.0) Differential Total Cells Counted 100 Neutrophils % (Manual) 89 % (45-75) H Lymphocytes % (Manual) 6 % (20-45) L Monocytes % (Manual) 5 % (1-10) Eosinophils % (Manual) 0 % (0-3) Basophils % (Manual) 0 % (0-2) Band Neutrophils 0 % (0-8) Platelet Estimate Decreased L Platelet Morphology Normal Anisocytosis 1+ Reticulocyte Count 3.0 % (0.5-2.0) H Coagulation Test 06/29/19 03:30 Prothrombin Time 14.3 SEC (9.30-11.50) H Prothromb Time International Ratio 1.4 (0.9-1.1) H Activated Partial Thromboplast Time 37 SEC (23-33) H Chemistry Test 06/28/19 14:40 06/28/19 20:20 06/29/19 03:30 06/29/19 11:40 Lactic Acid Level 3.80 mmol/L (0.4-2.0) H 5.30 mmol/L (0.4-2.0) H 6.70 mmol/L (0.4-2.0) H 4.40 mmol/L (0.4-2.0) H Troponin I 0.165 ng/mL (0.000-0.056) 0.097 ng/mL (0.000-0.056) Carcinoembryonic Antigen 1.9 ng/mL (0.0-4.7) Sodium Level 144 MMOL/L (136-145) Potassium Level 4.4 MMOL/L (3.5-5.1) Chloride Level 116 MMOL/L (98-107) H Carbon Dioxide Level 17 MMOL/L (21-32) L Anion Gap 11 mmol/L (5-15) Blood Urea Nitrogen 50 mg/dL (7-18) H Creatinine 1.0 MG/DL (0.55-1.30) Estimat Glomerular Filtration Rate 55.1 mL/min (>60) Glucose Level 233 MG/DL (74-106) #H Calcium Level 6.8 MG/DL (8.5-10.1) L Iron Level 34 ug/dL (50-175) L Total Iron Binding Capacity 188 ug/dL (250-450) L Percent Iron Saturation 18 % (15-50) Unsaturated Iron Binding 154 ug/dL (112-346) Ferritin 92 NG/ML (8-388) Total Bilirubin 1.8 MG/DL (0.2-1.0) H Direct Bilirubin 0.4 MG/DL (0.0-0.3) H Aspartate Amino Transf (AST/SGOT) 1421 U/L (15-37) H Alanine Aminotransferase (ALT/SGPT) 726 U/L (12-78) H Alkaline Phosphatase 140 U/L (46-116) H Total Protein 4.0 G/DL (6.4-8.2) L Albumin 1.7 G/DL (3.4-5.0) L Globulin 2.3 g/dL Albumin/Globulin Ratio 0.7 (1.0-2.7) L Vitamin B12 Level 1751 PG/ML (193-986) H Folate 15.6 NG/ML (8.6-58.9) Thyroid Stimulating Hormone (TSH) 0.549 uiU/mL (0.358-3.740) Free Thyroxine 0.71 NG/DL (0.76-1.46) L Risk Assessment & Plan Assessment: ASA 4 Plan: MAC Status Change Before Surgery: Robert Bell MD Jun 29, 2019 12:51
--- NOTE | 2019-06-29 12:53 | Immediate Post-Op Evaluation ---
Immediate Post-Op Evalulation Immediate Post-Op Evalulation Procedure: EGD with banding of esophagial varices Date of Evaluation: Jun 29, 2019 Time of Evaluation: 12:52 IV Fluids: 200 Blood Products: none Estimated Blood Loss: none Urinary Output: none Blood Pressure Systolic: 104 Blood Pressure Diastolic: 56 Pulse Rate: 102 Respiratory Rate: 20 O2 Sat by Pulse Oximetry: 96 Temperature (Fahrenheit): 97.3 Pain Score (1-10): 1 Nausea: No Vomiting: No Complications none Patient Status: reacts, patent, ventilated, none Hydration Status: adequate Robert Garcia MD Jun 29, 2019 12:53
--- NOTE | 2019-06-29 12:55 | General Progress Note ---
Assessment/Plan Status: stable Assessment/Plan: 69-year-old female with past medical history of liver cirrhosis without known etiology presents for hematemesis #Hypovolemic shock secondary to hematemesis -ivf's -s/p PRBC, platelet transfusion -GI consult, appreciate recs: EGD today -Surgery consult, appreciate recs -Trend lactate -Wean levofed -Cardiology consult, appreciate recs -Echo: ef wnl -Trend troponins: reviewed #Intubation for airway protection -Pulmonology consult, appreciate recs -After EGD if bleeding is controlled, wean to extubation -RT -Vent settings: FiO2 40% #Suspected aspiration, patient high risk -Monitor for worsening sepsis or pneumonia -Follow-up repeat chest x-ray #Worsening leukocytosis, continue to monitor -Check UA -Check blood cultures -Follow-up chest x-ray -Consider addition of anaerobic coverage for possible aspiration, will defer to infectious disease recommendations #Liver cirrhosis with esophageal varices -Ascites present, continue Rocephin -Protonix 40 mg IV twice daily -Octreotide drip -Monitor CBC and BMP -Patient denies alcohol use, family states reason for liver cirrhosis is unknown. Differentials include Saunders versus autoimmune causes -Autoimmune work-up, can be deferred -Hepatitis panel pending -Right upper quadrant ultrasound -Continue lactulose -CEA normal #Hepatic encephalopathy -Continue lactulose as per above #Elevated troponin, likely secondary to demand ischemia -Cardiology consulted, appreciate recs -Echo: Within normal limits -Troponins downtrending, and stop checking further troponins #Lactic acidosis, improving -Secondary to #1 -Continue to monitor for other possible causes The time of my note may not reflect the time of my patient encounter. 45 minutes of critical time spent. This includes interpretation of charting, vitals, labs, imaging, exam. Subjective Date patient seen: Jun 29, 2019 Allergies: Coded Allergies: No Known Allergies (Unverified , 06/27/19) Subjective Patient nonverbal cannot obtain ROS, secondary to intubation and medical condition. Per RN patient has become more altered, and started on lactulose this a.m. Leukocytosis worsening. Patient plan for EGD today. Only signs of hematemesis are 1 patient is turned to lateral recumbent. Objective Last 24 Hour Vital Signs Date Time Temp Pulse Resp B/P (MAP) Pulse Ox O2 Delivery O2 Flow Rate FiO2 8/23/19 12:53 102 20 96 06/29/19 12:30 102 16 84/52 (63) 93 06/29/19 12:30 102 16 40 06/29/19 12:00 35 06/29/19 12:00 120 25 134/49 (77) 96 06/29/19 12:00 Mechanical Ventilator 06/29/19 11:15 112 21 40 06/29/19 11:00 109 16 119/48 (71) 97 06/29/19 10:30 98.3 111 15 118/50 (72) 97 06/29/19 10:00 110 16 112/56 (74) 98 06/29/19 09:30 112 17 124/41 (68) 97 06/29/19 09:25 98 06/29/19 09:25 112 18 35 35 06/29/19 09:00 112 16 134/50 (78) 96 06/29/19 08:15 109 16 130/66 (87) 97 06/29/19 08:00 115 06/29/19 08:00 98.7 107 16 111/57 (75) 97 06/29/19 08:00 Mechanical Ventilator 06/29/19 08:00 35 06/29/19 07:00 106 16 101/49 (66) 95 06/29/19 07:00 101/49 06/29/19 06:46 108 16 35 06/29/19 06:30 101 16 96/48 (64) 99 06/29/19 06:00 105 16 132/59 (83) 100 06/29/19 06:00 100/59 06/29/19 05:30 108 16 117/64 (81) 100 06/29/19 05:20 106 16 45 06/29/19 05:00 107 15 114/47 (69) 100 06/29/19 05:00 132/59 06/29/19 04:30 106 16 108/55 (72) 100 06/29/19 04:00 45 06/29/19 04:00 99.3 98 16 68/43 (51) 100 06/29/19 04:00 106 06/29/19 04:00 108/55 06/29/19 04:00 Mechanical Ventilator 06/29/19 03:30 103 16 84/49 (61) 98 06/29/19 03:00 104 16 119/56 (77) 98 06/29/19 03:00 68/29 06/29/19 02:49 117 21 45 06/29/19 02:00 102 16 111/70 (84) 100 06/29/19 01:29 103 20 45 06/29/19 01:00 96 16 82/48 (59) 98 06/29/19 00:00 100 06/29/19 00:00 45 06/29/19 00:00 Mechanical Ventilator 06/29/19 00:00 98.5 104 25 105/58 (74) 98 06/28/19 23:22 99 16 45 06/28/19 23:00 96 17 81/51 (61) 98 06/28/19 22:00 103 16 113/89 (97) 99 06/28/19 21:47 101 17 45 06/28/19 21:00 103 21 111/60 (77) 99 06/28/19 20:30 100 17 116/101 (106) 98 06/28/19 20:00 106 06/28/19 20:00 45 06/28/19 20:00 Mechanical Ventilator 06/28/19 20:00 97.9 105 15 121/53 (75) 98 06/28/19 19:38 102 16 45 06/28/19 19:30 106 21 128/68 (88) 98 06/28/19 19:00 55/37 06/28/19 19:00 100 16 93/53 (66) 97 06/28/19 18:30 99 16 104/58 (73) 96 06/28/19 18:15 103 19 150/65 (93) 98 06/28/19 18:00 96 16 123/55 (77) 99 06/28/19 18:00 104/58 06/28/19 17:30 91 16 132/59 (83) 100 06/28/19 17:25 91 16 123/61 (81) 99 06/28/19 17:06 90 16 101/55 (70) 97 06/28/19 17:00 101/55 06/28/19 17:00 88 16 82/51 (61) 97 06/28/19 16:51 92 16 45 06/28/19 16:48 97.7 06/28/19 16:30 97 22 119/51 (73) 98 06/28/19 16:00 97.7 95 16 89/58 (68) 98 06/28/19 16:00 45 06/28/19 16:00 Mechanical Ventilator 06/28/19 16:00 94 06/28/19 15:00 106 23 114/56 (75) 99 06/28/19 14:44 96 16 45 06/28/19 14:00 94 16 90/52 (65) 98 06/28/19 13:49 45 06/28/19 13:00 94 16 110/58 (75) 100 Intake and Output 06/28/19 06/29/19 18:59 06:59 Intake Total 4782.75 ml 1892.5 ml Balance 4782.75 ml 1892.5 ml IV Total 4782.75 ml 1892.5 ml # Voids 2 # Bowel Movements 1 Laboratory Tests 06/28/19 14:40: Lactic Acid Level 3.80H, Troponin I 0.165H, Carcinoembryonic Antigen 1.9, HIV (1 &2) Antibody Rapid Negative 06/28/19 20:20: Lactic Acid Level 5.30H, Troponin I 0.097H 06/29/19 03:30: Lactic Acid Level 6.70H, White Blood Count 19.3#H, Red Blood Count 2.85L, Hemoglobin 8.8L, Plasma Hemoglobin [Pending], Hematocrit 25.8L, Mean Corpuscular Volume 90, Mean Corpuscular Hemoglobin 31.0, Mean Corpuscular Hemoglobin Concent 34.3, Red Cell Distribution Width 14.9H, Platelet Count 48L, Mean Platelet Volume 10.1, Neutrophils (%) (Auto) , Lymphocytes (%) (Auto) , Monocytes (%) (Auto) , Eosinophils (%) (Auto) , Basophils (%) (Auto) , Differential Total Cells Counted 100, Neutrophils % (Manual) 89H, Lymphocytes % (Manual) 6L, Monocytes % (Manual) 5, Eosinophils % (Manual) 0, Basophils % ( Manual) 0, Band Neutrophils 0, Platelet Estimate DecreasedL, Platelet Morphology Normal, Anisocytosis 1+, Reticulocyte Count 3.0H, Prothrombin Time 14.3H, Prothromb Time International Ratio 1.4H, Activated Partial Thromboplast Time 37H, Sodium Level 144, Potassium Level 4.4, Chloride Level 116H, Carbon Dioxide Level 17L, Anion Gap 11, Blood Urea Nitrogen 50H, Creatinine 1.0, Estimat Glomerular Filtration Rate 55.1, Glucose Level 233#H, Calcium Level 6.8L , Iron Level 34L, Total Iron Binding Capacity 188L, Percent Iron Saturation 18, Unsaturated Iron Binding 154, Ferritin 92, Total Bilirubin 1.8H, Direct Bilirubin 0.4H, Aspartate Amino Transf (AST/SGOT) 1421H, Alanine Aminotransferase (ALT/SGPT) 726H, Alkaline Phosphatase 140H, Total Protein 4.0L , Albumin 1.7L, Globulin 2.3, Albumin/Globulin Ratio 0.7L, Vitamin B12 Level 1751H, Folate 15.6, Thyroid Stimulating Hormone (TSH) 0.549, Free Thyroxine 0.71L, Hepatitis A IgM Antibody [Pending], Hepatitis B Surface Antigen [Pending] , Hepatitis B Core IgM Antibody [Pending], Hepatitis C Antibody [Pending] 06/29/19 10:55: Arterial Blood pH 7.412, Arterial Blood Partial Pressure CO2 24.1*L, Arterial Blood Partial Pressure O2 72.5L, Arterial Blood HCO3 15.0*L, Arterial Blood Oxygen Saturation 93.1L, Arterial Blood Base Excess -8.3L, James Test Positive 06/29/19 11:40: Lactic Acid Level 4.40H Height (Feet): 5 Height (Inches): 2.00 Weight (Pounds): 110 Objective GENERAL: Intubated, patient does not respond to painful stimuli HEENT: NCAT, icteric eyes, pupils PERRLA Neck: No cervical lymphadenopathy, trachea midline CV: tachy, no murmurs rubs or gallops RESP: Clear to auscultation bilaterally, no wheezes/rhonchi/crackles ABD: soft, non-distended, no TTP, ascites present EXT: Normal muscle tone, +5/5 muscle strength NEURO: Nonresponsive Aileen Hsieh DO Jun 29, 2019 12:55
--- NOTE | 2019-06-29 13:13 | 48 Hour Post Anesthesia Eval ---
Post Anesthesia Evaluation Procedure: EGD with banding of esophagial varices Date of Evaluation: Jun 29, 2019 Time of Evaluation: 13:11 Blood Pressure Systolic: 102 0: 62 Pulse Rate: 86 Respiratory Rate: 20 Temperature (Fahrenheit): 97.8 O2 Sat by Pulse Oximetry: 96 Airway: patent, other - intubated Nausea: No Vomiting: No Pain Intensity: 1 Hydration Status: adequate Cardiopulmonary Status: stable Mental Status/LOC: patient returned to baseline Follow-up Care/Observations: n/a Post-Anesthesia Complications: none Follow-up care needed: N/A Robert Garcia MD Jun 29, 2019 13:13
--- NOTE | 2019-06-29 13:56 | NUR ---
CASE MANAGEMENT: REVIEW 06/29/2019 SI:ACUTE GI BLEED T 98.3 HR 111 RR 15 B/P 118/50 SATS 98% ON MECH VENT FIO2 35 WBC 19.3 CL 119 CO2 17 BUN 50 GLU 233 CA 6.8 TBILI 1.8 DBILI 0.4 AST 1421 ALT 726 ALP 140 ABGs PCO2 24.1 PO2 72.5 HCO3 15 O2 SAT 93.1 BE -8.3 IS: OCTREOTIDE IV @ 50 MCG/HR PROTONIX 25 mL/HR IVF @ 75 mL/HR CEFTRIAXONE IV QD INSULIN ASPART SUBQ AC/HS NOREPINEPHRINE PER PARAMETERS ICU DCP: PATIENT TO BE DISCHARGED TO HOME ONCE MEDICALLY CLEARED. Addendum: 06/29/19 at 1652 by Rose Mary Judd CM INTERQUAL MET
--- NOTE | 2019-06-29 14:00 | NUR ---
NURSE NOTES: VS stable while pt is maintained on Levophed at 4mcg/min. Pt had BM and was cleaned and repositioned.
--- NOTE | 2019-06-29 14:51 | Hematology/Onc Progress Note ---
Assessment/Plan Assessment/Plan Assessment and Recs: # Anemia of GI bleed -- patient presents with occult+ bleeding, anemia panel reviewed iron stores are moderate but given 4 units prbc, can be falsely moderate, recheck in several days --> as per GI eval, may need endoscopy --> has been started on ppi --> cea has been ordered - normal --> Hgb goal >7. Transfuse prn. --> (s/p 4 units prbc) --> Epogen or iron at this time is not particularly indicated --> Medications have been reviewed --> continue ppi and octreotide # Thrombocytopenia - potential causes multifactorial, evaluate liver and viral etiologies to begin, also could be related to underlying medications patient has received. In this case is due to etoh abuse, esoph varices and cirrhosis is noted --> Hep panel pending and HIV negative --> US abd does show cirrhosis --> Peripheral smear ordered to evaluate for blasts /schistocytes does not show any --> abx and other meds have been reviewed --> ok for ppx if plt >50k w/ either heparin or lovenox --> Transfuse if Plt < 20k and fever, or if Plt < 10k without fever --> EGD per gi --> s/p plt transfusion on 06/29 # Varices, esophageal --> potential rupture as per gi recs # Cirrhosis --> with hepatic enceph --> gi recs prn # Resp failure on vent --> per pulm weaning sbt --> per pulm The timing of this note does not necessarily reflect the time of the patient was seen. GREATLY APPRECIATE CONSULTATION. Subjective Hematologic/Lymphatic: Reports: anemia Allergies: Coded Allergies: No Known Allergies (Unverified , 06/27/19) All Systems: reviewed and negative except above Subjective 06/29: icu, s/p egd and plt tx, levo gtt Objective Objective Current Medications Medications (Trade) Dose Ordered Sig/Naseem Route PRN Reason Start Time Stop Time Status Last Admin Dose Admin Ceftriaxone Sodium 1 gm/ Sodium Chloride 55 ml @ 110 mls/hr DAILY IVPB 06/30/19 09:00 07/05/19 08:59 Chlorhexidine Gluconate (Mer-Hex 2%) 1 applic DAILY@1999 TOPIC 06/28/19 20:00 07/28/19 19:59 06/28/19 19:46 Dextrose (Dextrose 50%) 25 ml Q30M PRN IV Hypoglycemia 06/28/19 05:00 07/28/19 04:59 Dextrose (Dextrose 50%) 50 ml Q30M PRN IV Hypoglycemia 06/28/19 05:00 07/28/19 04:59 Insulin Aspart (NovoLOG) BEFORE MEALS AND HS SUBQ 06/28/19 06:30 07/28/19 06:29 06/29/19 05:50 Morphine Sulfate (Morphine Sulfate) 2 mg Q4H PRN IVP For Pain 06/28/19 09:15 07/05/19 09:14 06/29/19 02:29 Norepinephrine Bitartrate 4 mg/ Dextrose 250 ml @ 0 mls/hr Q24H IV 06/28/19 10:30 07/28/19 10:29 06/29/19 13:10 Octreotide Acetate 500 mcg/ Sodium Chloride 500 ml @ 50 mls/hr Q10H IV 06/28/19 10:00 07/28/19 09:59 06/29/19 05:49 Ondansetron HCl (Zofran) 4 mg Q6H PRN IVP Nausea & Vomiting 06/28/19 16:30 07/28/19 16:29 06/28/19 22:07 Pantoprazole 80 mg/Sodium Chloride 250 ml @ 25 mls/hr Q10H IV 06/28/19 10:00 07/28/19 09:59 06/29/19 05:49 Sodium Chloride 1,000 ml @ 75 mls/hr [id number] IV 06/28/19 05:00 07/28/19 04:59 06/29/19 06:00 Last 24 Hour Vital Signs Date Time Temp Pulse Resp B/P (MAP) Pulse Ox O2 Delivery O2 Flow Rate FiO2 06/29/19 14:30 113 23 137/56 (83) 97 06/29/19 14:00 113 20 124/57 (79) 98 06/29/19 13:30 114 19 136/41 (72) 97 06/29/19 13:13 86 20 96 06/29/19 13:10 104/56 06/29/19 13:00 98.4 112 17 141/63 (89) 97 06/29/19 12:53 102 20 96 06/29/19 12:30 102 16 84/52 (63) 93 06/29/19 12:30 102 16 40 06/29/19 12:00 35 06/29/19 12:00 120 25 134/49 (77) 96 06/29/19 12:00 115 06/29/19 12:00 Mechanical Ventilator 06/29/19 11:15 112 21 40 06/29/19 11:00 109 16 119/48 (71) 97 06/29/19 10:30 98.3 111 15 118/50 (72) 97 06/29/19 10:00 110 16 112/56 (74) 98 06/29/19 09:30 112 17 124/41 (68) 97 06/29/19 09:25 98 06/29/19 09:25 112 18 35 35 06/29/19 09:00 112 16 134/50 (78) 96 06/29/19 08:15 109 16 130/66 (87) 97 06/29/19 08:00 106 06/29/19 08:00 98.7 107 16 111/57 (75) 97 06/29/19 08:00 Mechanical Ventilator 06/29/19 08:00 35 06/29/19 07:00 106 16 101/49 (66) 95 06/29/19 07:00 101/49 06/29/19 06:46 108 16 35 06/29/19 06:30 101 16 96/48 (64) 99 06/29/19 06:00 105 16 132/59 (83) 100 06/29/19 06:00 100/59 06/29/19 05:30 108 16 117/64 (81) 100 06/29/19 05:20 106 16 45 06/29/19 05:00 107 15 114/47 (69) 100 06/29/19 05:00 132/59 06/29/19 04:30 106 16 108/55 (72) 100 06/29/19 04:00 45 06/29/19 04:00 99.3 98 16 68/43 (51) 100 06/29/19 04:00 106 06/29/19 04:00 108/55 06/29/19 04:00 Mechanical Ventilator 06/29/19 03:30 103 16 84/49 (61) 98 06/29/19 03:00 104 16 119/56 (77) 98 06/29/19 03:00 68/29 06/29/19 02:49 117 21 45 06/29/19 02:00 102 16 111/70 (84) 100 06/29/19 01:29 103 20 45 06/29/19 01:00 96 16 82/48 (59) 98 06/29/19 00:00 100 06/29/19 00:00 45 06/29/19 00:00 Mechanical Ventilator 06/29/19 00:00 98.5 104 25 105/58 (74) 98 06/28/19 23:22 99 16 45 06/28/19 23:00 96 17 81/51 (61) 98 06/28/19 22:00 103 16 113/89 (97) 99 06/28/19 21:47 101 17 45 06/28/19 21:00 103 21 111/60 (77) 99 06/28/19 20:30 100 17 116/101 (106) 98 06/28/19 20:00 106 06/28/19 20:00 45 06/28/19 20:00 Mechanical Ventilator 06/28/19 20:00 97.9 105 15 121/53 (75) 98 06/28/19 19:38 102 16 45 06/28/19 19:30 106 21 128/68 (88) 98 06/28/19 19:00 55/37 06/28/19 19:00 100 16 93/53 (66) 97 06/28/19 18:30 99 16 104/58 (73) 96 06/28/19 18:15 103 19 150/65 (93) 98 06/28/19 18:00 96 16 123/55 (77) 99 06/28/19 18:00 104/58 06/28/19 17:30 91 16 132/59 (83) 100 06/28/19 17:25 91 16 123/61 (81) 99 06/28/19 17:06 90 16 101/55 (70) 97 06/28/19 17:00 101/55 06/28/19 17:00 88 16 82/51 (61) 97 06/28/19 16:51 92 16 45 06/28/19 16:48 97.7 06/28/19 16:30 97 22 119/51 (73) 98 06/28/19 16:00 97.7 95 16 89/58 (68) 98 06/28/19 16:00 45 06/28/19 16:00 Mechanical Ventilator 06/28/19 16:00 94 06/28/19 15:00 106 23 114/56 (75) 99 06/28/19 14:44 96 16 45 06/28/19 14:00 94 16 90/52 (65) 98 06/28/19 13:49 45 06/28/19 13:00 94 16 110/58 (75) 100 06/28/19 12:46 95 16 45 06/28/19 12:00 Mechanical Ventilator 06/28/19 12:00 95 06/28/19 12:00 97.7 94 16 115/58 (77) 100 06/28/19 11:00 95 17 110/56 (74) 100 06/28/19 10:35 91 16 45 06/28/19 10:30 92 16 93/52 (66) 100 06/28/19 10:00 90 16 73/47 (56) 99 06/28/19 09:30 91 16 61/37 (45) 99 06/28/19 09:00 99 16 88/50 (63) 99 06/28/19 08:40 98 18 45 45 06/28/19 08:40 98 06/28/19 08:00 Mechanical Ventilator 06/28/19 08:00 101 06/28/19 08:00 97.5 98 16 81/47 (58) 99 06/28/19 07:01 101 18 50 06/28/19 07:00 101 18 111/63 (79) 100 06/28/19 06:00 99 16 107/61 (76) 100 06/28/19 05:18 101 16 100 06/28/19 05:09 Mechanical Ventilator 06/28/19 05:05 100 16 116/59 (78) 100 06/28/19 04:32 50 06/28/19 04:31 98 06/28/19 04:27 97.5 98 16 123/68 (86) 100 06/28/19 04:00 98.4 96 16 114/57 100 Mechanical Ventilator 100 06/28/19 03:00 98.4 96 16 114/57 100 Mechanical Ventilator 100 06/28/19 02:40 96 19 100 06/28/19 02:30 98.4 86 16 97/52 100 Mechanical Ventilator 100 06/28/19 02:00 98.2 86 17 86/40 100 Mechanical Ventilator 100 06/28/19 01:30 98.2 89 17 55/35 100 Mechanical Ventilator 100 06/28/19 01:05 91 17 98 Mechanical Ventilator 100 06/28/19 01:00 98.2 109 17 65/36 100 Mechanical Ventilator 100 06/28/19 00:54 91 17 100 06/28/19 00:30 98.2 108 18 107/50 100 Mechanical Ventilator 100 06/28/19 00:00 98.2 109 18 61/32 98 Room Air 06/27/19 23:45 125 18 Room Air 06/27/19 23:32 98.2 125 18 86/46 (59) 98 Room Air Intake and Output 06/28/19 06/29/19 18:59 06:59 Intake Total 4782.75 ml 1892.5 ml Balance 4782.75 ml 1892.5 ml IV Total 4782.75 ml 1892.5 ml # Voids 2 # Bowel Movements 1 Labs Test 06/27/19 23:40 06/28/19 00:30 06/28/19 01:30 06/28/19 02:28 White Blood Count 8.1 K/UL (4.8-10.8) Red Blood Count 2.19 M/UL (4.20-5.40) Hemoglobin 7.4 G/DL (12.0-16.0) Hematocrit 21.4 % (37.0-47.0) Mean Corpuscular Volume 98 FL (80-99) Mean Corpuscular Hemoglobin 33.6 PG (27.0-31.0) Mean Corpuscular Hemoglobin Concent 34.3 G/DL (32.0-36.0) Red Cell Distribution Width 13.5 % (11.6-14.8) Platelet Count 53 K/UL (150-450) Mean Platelet Volume 9.5 FL (6.5-10.1) Neutrophils (%) (Auto) % (45.0-75.0) Lymphocytes (%) (Auto) % (20.0-45.0) Monocytes (%) (Auto) % (1.0-10.0) Eosinophils (%) (Auto) % (0.0-3.0) Basophils (%) (Auto) % (0.0-2.0) Prothrombin Time 14.8 SEC (9.30-11.50) Prothromb Time International Ratio 1.4 (0.9-1.1) Activated Partial Thromboplast Time 33 SEC (23-33) Sodium Level 143 MMOL/L (136-145) Potassium Level 4.2 MMOL/L (3.5-5.1) Chloride Level 110 MMOL/L (98-107) Carbon Dioxide Level 22 MMOL/L (21-32) Anion Gap 11 mmol/L (5-15) Blood Urea Nitrogen 32 mg/dL (7-18) Creatinine 0.8 MG/DL (0.55-1.30) Estimat Glomerular Filtration Rate > 60 mL/min (>60) Glucose Level 391 MG/DL (74-106) Lactic Acid Level 6.70 mmol/L (0.4-2.0) 5.90 mmol/L (0.66-2.22) Calcium Level 7.9 MG/DL (8.5-10.1) Total Bilirubin 2.3 MG/DL (0.2-1.0) Direct Bilirubin 0.4 MG/DL (0.0-0.3) Aspartate Amino Transf (AST/SGOT) 40 U/L (15-37) Alanine Aminotransferase (ALT/SGPT) 29 U/L (12-78) Alkaline Phosphatase 155 U/L (46-116) Total Creatine Kinase 76 U/L (26-308) Creatine Kinase MB 1.7 NG/ML (0.0-3.6) Creatine Kinase MB Relative Index 2.2 Troponin I 0.062 ng/mL (0.000-0.056) Pro-B-Type Natriuretic Peptide 54 pg/mL (0-125) Total Protein 4.8 G/DL (6.4-8.2) Albumin 1.9 G/DL (3.4-5.0) Globulin 2.9 g/dL Albumin/Globulin Ratio 0.7 (1.0-2.7) Lipase 317 U/L (73-393) Lab Scanned Report Blood Bank/Transfusion Arterial Blood pH 7.275 (7.350-7.450) Arterial Blood Partial Pressure CO2 32.6 mmHg (35.0-45.0) Arterial Blood Partial Pressure O2 310.8 mmHg (75.0-100.0) Arterial Blood HCO3 14.8 mmol/L (22.0-26.0) Arterial Blood Oxygen Saturation 98.7 % (95-100) Arterial Blood Base Excess -11 (-2-2) James Test Positive Test 06/28/19 08:15 06/28/19 14:40 06/28/19 20:20 06/29/19 03:30 White Blood Count 12.3 K/UL (4.8-10.8) 19.3 K/UL (4.8-10.8) Red Blood Count 4.11 M/UL (4.20-5.40) 2.85 M/UL (4.20-5.40) Hemoglobin 12.4 G/DL (12.0-16.0) 8.8 G/DL (12.0-16.0) Hematocrit 36.6 % (37.0-47.0) 25.8 % (37.0-47.0) Mean Corpuscular Volume 89 FL (80-99) 90 FL (80-99) Mean Corpuscular Hemoglobin 30.2 PG (27.0-31.0) 31.0 PG (27.0-31.0) Mean Corpuscular Hemoglobin Concent 33.9 G/DL (32.0-36.0) 34.3 G/DL (32.0-36.0) Red Cell Distribution Width 13.6 % (11.6-14.8) 14.9 % (11.6-14.8) Platelet Count 37 K/UL (150-450) 48 K/UL (150-450) Mean Platelet Volume 12.2 FL (6.5-10.1) 10.1 FL (6.5-10.1) Neutrophils (%) (Auto) % (45.0-75.0) % (45.0-75.0) Lymphocytes (%) (Auto) % (20.0-45.0) % (20.0-45.0) Monocytes (%) (Auto) % (1.0-10.0) % (1.0-10.0) Eosinophils (%) (Auto) % (0.0-3.0) % (0.0-3.0) Basophils (%) (Auto) % (0.0-2.0) % (0.0-2.0) Differential Total Cells Counted 100 100 Neutrophils % (Manual) 94 % (45-75) 89 % (45-75) Lymphocytes % (Manual) 4 % (20-45) 6 % (20-45) Monocytes % (Manual) 2 % (1-10) 5 % (1-10) Eosinophils % (Manual) 0 % (0-3) 0 % (0-3) Basophils % (Manual) 0 % (0-2) 0 % (0-2) Band Neutrophils 0 % (0-8) 0 % (0-8) Other Cell Type Pathologist review Platelet Estimate Decreased Decreased Platelet Morphology Normal Normal Red Blood Cell Morphology Normal Lactic Acid Level 4.70 mmol/L (0.4-2.0) 3.80 mmol/L (0.4-2.0) 5.30 mmol/L (0.4-2.0) 6.70 mmol/L (0.4-2.0) Troponin I 0.262 ng/mL (0.000-0.056) 0.165 ng/mL (0.000-0.056) 0.097 ng/mL (0.000-0.056) Carcinoembryonic Antigen 1.9 ng/mL (0.0-4.7) HIV (1&2) Antibody Rapid Negative (NEGATIVE) Anisocytosis 1+ Reticulocyte Count 3.0 % (0.5-2.0) Prothrombin Time 14.3 SEC (9.30-11.50) Prothromb Time International Ratio 1.4 (0.9-1.1) Activated Partial Thromboplast Time 37 SEC (23-33) Sodium Level 144 MMOL/L (136-145) Potassium Level 4.4 MMOL/L (3.5-5.1) Chloride Level 116 MMOL/L (98-107) Carbon Dioxide Level 17 MMOL/L (21-32) Anion Gap 11 mmol/L (5-15) Blood Urea Nitrogen 50 mg/dL (7-18) Creatinine 1.0 MG/DL (0.55-1.30) Estimat Glomerular Filtration Rate 55.1 mL/min (>60) Glucose Level 233 MG/DL (74-106) Calcium Level 6.8 MG/DL (8.5-10.1) Iron Level 34 ug/dL (50-175) Total Iron Binding Capacity 188 ug/dL (250-450) Percent Iron Saturation 18 % (15-50) Unsaturated Iron Binding 154 ug/dL (112-346) Ferritin 92 NG/ML (8-388) Total Bilirubin 1.8 MG/DL (0.2-1.0) Direct Bilirubin 0.4 MG/DL (0.0-0.3) Aspartate Amino Transf (AST/SGOT) 1421 U/L (15-37) Alanine Aminotransferase (ALT/SGPT) 726 U/L (12-78) Alkaline Phosphatase 140 U/L (46-116) Total Protein 4.0 G/DL (6.4-8.2) Albumin 1.7 G/DL (3.4-5.0) Globulin 2.3 g/dL Albumin/Globulin Ratio 0.7 (1.0-2.7) Vitamin B12 Level 1751 PG/ML (193-986) Folate 15.6 NG/ML (8.6-58.9) Thyroid Stimulating Hormone (TSH) 0.549 uiU/mL (0.358-3.740) Free Thyroxine 0.71 NG/DL (0.76-1.46) Test 06/29/19 10:55 06/29/19 11:40 Arterial Blood pH 7.412 (7.350-7.450) Arterial Blood Partial Pressure CO2 24.1 mmHg (35.0-45.0) Arterial Blood Partial Pressure O2 72.5 mmHg (75.0-100.0) Arterial Blood HCO3 15.0 mmol/L (22.0-26.0) Arterial Blood Oxygen Saturation 93.1 % (95-100) Arterial Blood Base Excess -8.3 (-2-2) James Test Positive Lactic Acid Level 4.40 mmol/L (0.4-2.0) Height (Feet): 5 Height (Inches): 2.00 Weight (Pounds): 110 Objective Physical Exam: Vitals: reviewed General Appearance: NAD HEENT: normocephalic, atraumatic ++VENT Respiratory/Chest: normal breath sounds bilaterally Cardiovascular/Chest: normal peripheral pulses, normal rate Abdomen: normal bowel sounds, soft, nontender Extremities: normal range of motion Anthony Chaudhary MD Jun 29, 2019 14:50
--- NOTE | 2019-06-29 15:34 | NUR ---
*--* INSURANCE *--* ALL CLINICALS AND REVIEWS HAVE BEEN FAXED TO: [facility] [employer] DELEGATED TO [facility] F/S FAXED TO [facility] NCM: AKUA [phone] X 1142 F- [phone]...........REVIEW/ CLINICAL
--- NOTE | 2019-06-29 16:03 | NUR ---
NURSE NOTES: Pt had BM x3 today, dark tarry liquid stool. Pt was cleaned, gown/linens changed x3 today. Urine specimen and blood specimen (for lactic acid and blood culture) was collected and sent to lab. Rouse catheter was also inserted per Dr Hsieh's order. Straight cath was done for urine collection with resulted with 500ml urine output. Dr Hsieh was notified and order was received to insert Rouse catheter. VS stable with Levophed currently at 4mcg/min.
--- NOTE | 2019-06-29 16:38 | Diagnostic Imaging Report ---
Indication: Abnormal liver function tests and abnormal renal function tests Technique: Spears-scale and duplex images of the upper abdomen were obtained Comparison: none Findings: Gallbladder demonstrates wall thickening and edema, wall thickness of up to 14 mm. No gallstones demonstrated. Patient was unable to report Marie's sign. Common bile duct measures for mm in diameter. No intrahepatic biliary ductal dilatation. Liver demonstrates coarse in echogenicity and surface nodularity. No focal abnormality Portal vein and hepatic veins are patent, but the portal vein demonstrates to-and-fro venous flow. Hilar varices are noted. Pancreas is obscured by bowel gas. Spleen is unremarkable. Left kidney measures 10.8 cm in length. Right kidney measures 9.5 cm length. Both kidneys demonstrate normal echogenicity. There is no hydronephrosis. A cyst is seen in the left kidney . Abdominal aorta is partially obscured by bowel gas, visualized portions are non-aneurysmal . Mild ascites is demonstrated Impression: Evidence of hepatic cirrhosis, with coarsened hepatic echogenicity and surface nodularity Evidence of portal hypertension, with ascites, hepatic hilar varices, and abnormal portal venous flow No gallstones. Gallbladder wall is markedly thickened. This is probably edema due to the hepatic abnormalities. Acalculous acute cholecystitis or cholecystitis secondary to occult stone disease excludable, and hepatobiliary nuclear scan could be considered if there is high clinical suspicion Left renal cyst Node inability to visualize the pancreas and portions of the abdominal aorta
[2019-06-29 17:19] LABS: APPEARANCE,URINE CLEAR; BILIRUBIN, URINE NEGATIVE (NEGATIVE); GLUCOSE, URINE (UA) 2+ (NEGATIVE); KETONES,URINE 1+ (NEGATIVE); LEUKOCYTE ESTERASE ,URINE NEGATIVE (NEGATIVE); NITRITE,URINE NEGATIVE (NEGATIVE); PH,URINE 6 (4.5-8.0); PROTEIN,URINE NEGATIVE (NEGATIVE); UROBILINOGEN,URINE NORMAL MG/DL (0.0-1.0)
[2019-06-29 17:20] LABS: COLOR,URINE YELLOW
--- NOTE | 2019-06-29 18:20 | NUR ---
NURSE NOTES: Pt had BM, black liquid tarry stool. Pt was cleaned and repositioned. VS stable while pt is currently maintained on Levophed at 4mcg/min. Pt's daughter is at bedside. Central line dressing was changed.
--- NOTE | 2019-06-29 19:20 | Surgery Progress Note ---
Surgery Progress Note Subjective Additional Comments EGD today labs noted exam unchanged family at bedside Objective Last 24 Hour Vital Signs Date Time Temp Pulse Resp B/P (MAP) Pulse Ox O2 Delivery O2 Flow Rate FiO2 06/29/19 19:00 110 22 127/37 (67) 97 06/29/19 18:00 108 22 129/41 (70) 97 06/29/19 17:30 110 23 118/53 (74) 96 06/29/19 17:03 111 21 40 06/29/19 17:00 109 22 127/46 (73) 96 06/29/19 16:00 98.4 109 20 122/45 (70) 96 06/29/19 16:00 Mechanical Ventilator 06/29/19 16:00 35 06/29/19 16:00 111 06/29/19 15:30 109 19 118/52 (74) 96 06/29/19 15:00 110 19 118/50 (72) 96 06/29/19 14:30 109 20 40 06/29/19 14:30 113 23 137/56 (83) 97 06/29/19 14:00 113 20 124/57 (79) 98 06/29/19 13:30 114 19 136/41 (72) 97 06/29/19 13:13 86 20 96 06/29/19 13:10 104/56 06/29/19 13:00 98.4 112 17 141/63 (89) 97 06/29/19 12:53 102 20 96 06/29/19 12:30 102 16 84/52 (63) 93 06/29/19 12:30 102 16 40 06/29/19 12:00 35 06/29/19 12:00 120 25 134/49 (77) 96 06/29/19 12:00 115 06/29/19 12:00 Mechanical Ventilator 06/29/19 11:15 112 21 40 06/29/19 11:00 109 16 119/48 (71) 97 06/29/19 10:30 98.3 111 15 118/50 (72) 97 06/29/19 10:00 110 16 112/56 (74) 98 06/29/19 09:30 112 17 124/41 (68) 97 06/29/19 09:25 98 06/29/19 09:25 112 18 35 35 06/29/19 09:00 112 16 134/50 (78) 96 06/29/19 08:15 109 16 130/66 (87) 97 06/29/19 08:00 106 06/29/19 08:00 98.7 107 16 111/57 (75) 97 06/29/19 08:00 Mechanical Ventilator 06/29/19 08:00 35 06/29/19 07:00 106 16 101/49 (66) 95 06/29/19 07:00 101/49 06/29/19 06:46 108 16 35 06/29/19 06:30 101 16 96/48 (64) 99 06/29/19 06:00 105 16 132/59 (83) 100 06/29/19 06:00 100/59 06/29/19 05:30 108 16 117/64 (81) 100 06/29/19 05:20 106 16 45 06/29/19 05:00 107 15 114/47 (69) 100 06/29/19 05:00 132/59 06/29/19 04:30 106 16 108/55 (72) 100 06/29/19 04:00 45 06/29/19 04:00 99.3 98 16 68/43 (51) 100 06/29/19 04:00 106 06/29/19 04:00 108/55 06/29/19 04:00 Mechanical Ventilator 06/29/19 03:30 103 16 84/49 (61) 98 06/29/19 03:00 104 16 119/56 (77) 98 06/29/19 03:00 68/29 06/29/19 02:49 117 21 45 06/29/19 02:00 102 16 111/70 (84) 100 06/29/19 01:29 103 20 45 06/29/19 01:00 96 16 82/48 (59) 98 06/29/19 00:00 100 06/29/19 00:00 45 06/29/19 00:00 Mechanical Ventilator 06/29/19 00:00 98.5 104 25 105/58 (74) 98 06/28/19 23:22 99 16 45 06/28/19 23:00 96 17 81/51 (61) 98 06/28/19 22:00 103 16 113/89 (97) 99 06/28/19 21:47 101 17 45 06/28/19 21:00 103 21 111/60 (77) 99 06/28/19 20:30 100 17 116/101 (106) 98 06/28/19 20:00 106 06/28/19 20:00 45 06/28/19 20:00 Mechanical Ventilator 06/28/19 20:00 97.9 105 15 121/53 (75) 98 06/28/19 19:38 102 16 45 06/28/19 19:30 106 21 128/68 (88) 98 I&O Intake and Output 06/28/19 06/29/19 19:00 07:00 Intake Total 4815.25 ml 1892.5 ml Output Total 500 ml Balance 4815.25 ml 1392.5 ml IV Total 4815.25 ml 1892.5 ml Output Urine Total 500 ml # Voids 2 3 # Bowel Movements 1 Dressing: other Wound: other Drains: other Cardiovascular: RSR Respiratory: decreased breath sounds Abdomen: soft, present bowel sounds, non-distended Extremities: no cyanosis Laboratory Tests Test 06/28/19 20:20 06/29/19 03:30 06/29/19 10:55 06/29/19 11:40 Lactic Acid Level 5.30 mmol/L (0.4-2.0) H 6.70 mmol/L (0.4-2.0) H 4.40 mmol/L (0.4-2.0) H Troponin I 0.097 ng/mL (0.000-0.056) White Blood Count 19.3 K/UL (4.8-10.8) #H Red Blood Count 2.85 M/UL (4.20-5.40) L Hemoglobin 8.8 G/DL (12.0-16.0) L Plasma Hemoglobin Pending Hematocrit 25.8 % (37.0-47.0) L Mean Corpuscular Volume 90 FL (80-99) Mean Corpuscular Hemoglobin 31.0 PG (27.0-31.0) Mean Corpuscular Hemoglobin Concent 34.3 G/DL (32.0-36.0) Red Cell Distribution Width 14.9 % (11.6-14.8) H Platelet Count 48 K/UL (150-450) L Mean Platelet Volume 10.1 FL (6.5-10.1) Neutrophils (%) (Auto) % (45.0-75.0) Lymphocytes (%) (Auto) % (20.0-45.0) Monocytes (%) (Auto) % (1.0-10.0) Eosinophils (%) (Auto) % (0.0-3.0) Basophils (%) (Auto) % (0.0-2.0) Differential Total Cells Counted 100 Neutrophils % (Manual) 89 % (45-75) H Lymphocytes % (Manual) 6 % (20-45) L Monocytes % (Manual) 5 % (1-10) Eosinophils % (Manual) 0 % (0-3) Basophils % (Manual) 0 % (0-2) Band Neutrophils 0 % (0-8) Platelet Estimate Decreased L Platelet Morphology Normal Anisocytosis 1+ Reticulocyte Count 3.0 % (0.5-2.0) H Prothrombin Time 14.3 SEC (9.30-11.50) H Prothromb Time International Ratio 1.4 (0.9-1.1) H Activated Partial Thromboplast Time 37 SEC (23-33) H Sodium Level 144 MMOL/L (136-145) Potassium Level 4.4 MMOL/L (3.5-5.1) Chloride Level 116 MMOL/L (98-107) H Carbon Dioxide Level 17 MMOL/L (21-32) L Anion Gap 11 mmol/L (5-15) Blood Urea Nitrogen 50 mg/dL (7-18) H Creatinine 1.0 MG/DL (0.55-1.30) Estimat Glomerular Filtration Rate 55.1 mL/min (>60) Glucose Level 233 MG/DL (74-106) #H Calcium Level 6.8 MG/DL (8.5-10.1) L Iron Level 34 ug/dL (50-175) L Total Iron Binding Capacity 188 ug/dL (250-450) L Percent Iron Saturation 18 % (15-50) Unsaturated Iron Binding 154 ug/dL (112-346) Ferritin 92 NG/ML (8-388) Total Bilirubin 1.8 MG/DL (0.2-1.0) H Direct Bilirubin 0.4 MG/DL (0.0-0.3) H Aspartate Amino Transf (AST/SGOT) 1421 U/L (15-37) H Alanine Aminotransferase (ALT/SGPT) 726 U/L (12-78) H Alkaline Phosphatase 140 U/L (46-116) H Total Protein 4.0 G/DL (6.4-8.2) L Albumin 1.7 G/DL (3.4-5.0) L Globulin 2.3 g/dL Albumin/Globulin Ratio 0.7 (1.0-2.7) L Vitamin B12 Level 1751 PG/ML (193-986) H Folate 15.6 NG/ML (8.6-58.9) Thyroid Stimulating Hormone (TSH) 0.549 uiU/mL (0.358-3.740) Free Thyroxine 0.71 NG/DL (0.76-1.46) L Hepatitis A IgM Antibody Pending Hepatitis B Surface Antigen Pending Hepatitis B Core IgM Antibody Pending Hepatitis C Antibody Pending Arterial Blood pH 7.412 (7.350-7.450) Arterial Blood Partial Pressure CO2 24.1 mmHg (35.0-45.0) *L Arterial Blood Partial Pressure O2 72.5 mmHg (75.0-100.0) L Arterial Blood HCO3 15.0 mmol/L (22.0-26.0) *L Arterial Blood Oxygen Saturation 93.1 % (95-100) L Arterial Blood Base Excess -8.3 (-2-2) L James Test Positive Test 06/29/19 15:30 06/29/19 15:44 Urine Color Yellow Urine Appearance Clear Urine pH 6 (4.5-8.0) Urine Specific [place] 1.015 (1.005-1.035) Urine Protein Negative (NEGATIVE) Urine Glucose (UA) 2+ (NEGATIVE) H Urine Ketones 1+ (NEGATIVE) H Urine Blood Negative (NEGATIVE) Urine Nitrite Negative (NEGATIVE) Urine Bilirubin Negative (NEGATIVE) Urine Urobilinogen Normal MG/DL (0.0-1.0) Urine Leukocyte Esterase Negative (NEGATIVE) Lactic Acid Level 3.20 mmol/L (0.66-2.22) H Plan Problems: (1) Cirrhosis (2) Varices, esophageal (3) GI bleed Assessment & Plan: 69F with acute GI bleed. etiology likely prior varices anemia on admission and transfused currently in ICU intubated on support GI plan for EGD soon after eval for cardiac npo iv fluids ppi and aug gtt will follow with recs thank you (4) Acute GI bleeding Zaid Wong 23, 2019 19:20
--- NOTE | 2019-06-29 19:29 | NUR ---
HAND-OFF: Report given to Bolivar HOYOS. VS stable. Endorsed plan of care.
--- NOTE | 2019-06-29 19:30 | NUR ---
NURSE NOTES: Recvd.on a vent.orally intubated.S/P EGD with Bonding today by .Observed for any S/Sx of active bleeding.Protonix and Sandostatin drip in progress.Pos.chg.easily arousable.See V/S.Levo.drip infusing TiT BPS>90.Scope ST.Suctioned.NS Lavaged.F/Cath patent.See I/O.
--- NOTE | 2019-06-29 19:45 | Procedure Note ---
DATE OF PROCEDURE: 06/28/2019 SURGEON: Mina Garcia M.D. PROCEDURE: Upper endoscopy with banding. ANESTHESIA: Per Dr. Garcia. INSTRUMENT: Olympus adult flexible upper endoscope. INDICATION: GI bleeding. The procedure, risks, benefits, and possible consequences, including hemorrhage, aspiration, perforation and infection, and alternative treatments, were explained to the patient/legal guardian by Dr. Mina Garcia and the patient/legal guardian understood and accepted these risks. PROCEDURE IN DETAIL: After informed consent was obtained and the patient was adequately sedated, first Olympus upper endoscope was advanced from the mouth into the second portion of the duodenum and retroflexion was performed in the stomach. The patient had evidence of four columns of grade 4 distal esophageal varices with one of them having nipple on it, most probably the source of bleeding. There was some blood seen in the stomach. There was no evidence of any obvious gastric varices that we could see, although the examination of the GE junction given the blood clot was limited. The patient also had evidence of mild portal hypertensive gastropathy. Then, we put a banding device with a total of 7 bands placed in the distal esophagus. The patient tolerated the procedure very well without any complication. SUMMARY OF FINDINGS: Status post endoscopy and esophageal varices banding x7. RECOMMENDATIONS: 1. Keep NPO for today. 2. Start clear liquid diet tomorrow if the patient is stable. 3. Continue on octreotide. 4. Continue on Protonix. 5. Monitor hemoglobin and hematocrit. Transfuse as needed to keep hemoglobin above 7. Mina Garcia M.D. DR: BETH JOB#: [id number] CC:
[2019-06-29] MEDS: Dyna-Hex 2% Top Sol 2oz TOPIC SCH (19:59)
--- NOTE | 2019-06-29 22:15 | NUR ---
NURSE NOTES: HS care rendered.Pos. chg.Suctioned.Neuro status same.See V/S.Levo drip at same rate.Scope rhythm same.Due meds admin.Family at Bedside.
[2019-06-30] VITALS (53 sets, daily range): BP systolic 100–136; BP diastolic 34–90
--- NOTE | 2019-06-30 00:10 | NUR ---
NURSE NOTES: Inct.of loose tarry stool,Made clean and dry.Suctioned.Maintain on sandostatin and protonix drip at same rate.VSS.Scope rhythm same.
[2019-06-30] MEDS: Octreotide Acetate 500 MCG in Sodium Chloride 499 ML IV SCH ×3 (02:01→22:42)
[2019-06-30] MEDS: Pantoprazole 80 MG in NS 250 ML IV SCH ×2 (02:01→12:10)
--- NOTE | 2019-06-30 02:10 | NUR ---
NURSE NOTES: Repositioned,Suctioned.V/S stable.Levo.drip at same rate.Cont.Plan of care.
--- NOTE | 2019-06-30 04:30 | NUR ---
NURSE NOTES: Blood drawn for cbc/cmp spec.to lab.Cecily Monte.had 2x tarry stool.kept NPO.IV Hydration remain in progress.V/S stable.LEVO.Drip at same rate.Maintain on sandostatin and protonix drip as ordered.
[2019-06-30 06:12] LABS: HEMATOCRIT 23.4 % (37.0-47.0); HEMOGLOBIN 8.2 G/DL (12.0-16.0); MEAN CORPUSCULAR VOLUME 90 FL (80-99); PLATELET COUNT 95 K/UL (150-450); RED BLOOD COUNT 2.59 M/UL (4.20-5.40); RED CELL DISTRIBUTION WIDTH 16.8 % (11.6-14.8)
[2019-06-30] MEDS: NovoLOG Insulin Flexpen SUBQ SCH ×4 (06:39→20:49)
--- NOTE | 2019-06-30 07:07 | NUR ---
HAND-OFF: Report given to ROMAIN LUDWIG.
--- NOTE | 2019-06-30 07:08 | NUR ---
NURSE NOTES: RECEIVED PATIENT FROM Taina BONNER RN. PATIENT IS SEEN LYING IN BED, UNABLE TO OPEN EYES. SEEN FAMILY MEMBERS AT THE BEDSIDE. HOOKED TO CALL CENTER RN. HR OF 109. ORALLY INTUBATED 8.0 AT 21 CM LIP LINE. VENT SETTINGS AC 16, TV 550, FiO2 40%, PEEP 0. NO SIGNS OF CARDIAC OR RESPI DISTRESS OF THE MOMENT. NOTED DAMIAN CONNECTED TO BAG, PATENT AND DRAINING URINE. NOTED TLC ON LEFT FEMORAL WITH IVF RUNNING SANDOSTATIN AT 50ML/HR, PROTONIX DRIP AT 25ML/HR, 1/2 NS AT 75ML/HR, AND ON LEVOPHED DRIP AT 4MCG/HR FOLLOWING HOSPITAL PROTOCOL ON DRIP. STILL ON BW RESTRAINTS DUE TO PULLING ETT. CALL LIGHT WITHIN REACH. BED AT LOWEST POSITION. WILL CONTINUE TO MONITOR.
[2019-06-30 07:48] LABS: ALANINE AMINOTRANSFERASE 903 U/L (12-78); ALBUMIN 1.7 G/DL (3.4-5.0); ALBUMIN/GLOBULIN RATIO 0.7 (1.0-2.7); ALKALINE PHOSPHATASE 150 U/L (46-116); ANION GAP 9 mmol/L (5-15); ASPARTATE AMINO TRANSFERASE 1202 U/L (15-37); BILIRUBIN,TOTAL 2.3 MG/DL (0.2-1.0); BLOOD UREA NITROGEN 47 mg/dL (7-18); CALCIUM 7.1 MG/DL (8.5-10.1); CARBON DIOXIDE 20 MMOL/L (21-32); CHLORIDE 115 MMOL/L (98-107); CREATININE 0.8 MG/DL (0.55-1.30); POTASSIUM 4.1 MMOL/L (3.5-5.1); SODIUM 143 MMOL/L (136-145)
[2019-06-30 07:50] LABS: BILIRUBIN,DIRECT 0.5 MG/DL (0.0-0.3)
--- NOTE | 2019-06-30 08:00 | NUR ---
NURSE NOTES: SPOKE WITH DR MONTOYA OVER THE PHONE, NO WEANING FOR TODAY. NNO.
--- NOTE | 2019-06-30 08:00 | Pulmonology Progress Note ---
Assessment/Plan Assessment/Plan IMPRESSION: 1. Respiratory failure. Will maintain AC mode; fiO2 35% 2. Upper GI bleed, likely gastric varices. S/p EGD 3. Diabetes mellitus. 4. Anemia. Hgb stable 5. Thrombocytopenia; 6. Likely hepatic encephalopathy; on lactulose; having diarrhea DISCUSSION: Continue Levophed, IV fluids. Continue Protonix and octreotide. Maintain AC mode Continue lactulose Hold weaning till off pressors and more responsive James Zeng M.D. Subjective Interval Events: Remains on vent; on Levophed Constitutional: Reports: no symptoms HEENT: Repors: no symptoms Respiratory: Reports: no symptoms Cardiovascular: Reports: no symptoms Gastrointestinal/Abdominal: Reports: no symptoms Genitourinary: Reports: no symptoms Allergies: Coded Allergies: No Known Allergies (Unverified , 06/27/19) Objective Last 24 Hour Vital Signs Date Time Temp Pulse Resp B/P (MAP) Pulse Ox O2 Delivery O2 Flow Rate FiO2 06/30/19 07:30 109 24 132/54 (80) 97 06/30/19 07:12 103 23 40 06/30/19 07:00 108 23 111/45 (67) 97 06/30/19 06:51 129/46 06/30/19 06:30 106 24 117/44 (68) 97 06/30/19 06:00 104 22 122/45 (70) 97 06/30/19 05:30 106 23 122/55 (77) 97 06/30/19 05:00 103 20 40 06/30/19 05:00 102 23 115/48 (70) 97 06/30/19 04:30 104 23 118/51 (73) 97 06/30/19 04:00 40 06/30/19 04:00 105 06/30/19 04:00 98.6 105 23 125/50 (75) 96 06/30/19 04:00 Mechanical Ventilator 06/30/19 03:30 108 24 117/53 (74) 96 06/30/19 03:18 89 18 40 06/30/19 03:00 108 24 123/52 (75) 97 06/30/19 02:30 111 25 131/44 (73) 96 06/30/19 02:00 110 24 130/47 (74) 97 06/30/19 01:34 77 18 40 06/30/19 01:30 111 24 123/52 (75) 97 06/30/19 01:00 111 26 133/40 (71) 97 06/30/19 00:30 110 25 114/46 (68) 97 06/30/19 00:00 40 06/30/19 00:00 Mechanical Ventilator 06/30/19 00:00 110 06/30/19 00:00 98.8 110 25 126/41 (69) 96 06/29/19 23:30 111 23 135/44 (74) 96 06/29/19 23:00 109 22 122/47 (72) 96 06/29/19 22:50 107 20 40 06/29/19 22:30 109 22 127/46 (73) 97 06/29/19 22:00 111 24 129/50 (76) 97 06/29/19 21:30 112 24 134/46 (75) 97 06/29/19 21:20 109 21 40 06/29/19 21:00 112 23 132/45 (74) 97 06/29/19 20:30 111 23 121/53 (75) 97 06/29/19 20:00 98.7 111 25 123/48 (73) 98 06/29/19 20:00 Mechanical Ventilator 06/29/19 20:00 40 06/29/19 20:00 111 06/29/19 19:30 108 22 124/47 (72) 97 06/29/19 19:25 112 18 97 Mechanical Ventilator 30 06/29/19 19:25 111 22 40 06/29/19 19:00 110 22 127/37 (67) 97 06/29/19 19:00 123/40 06/29/19 18:00 129/41 06/29/19 18:00 108 22 129/41 (70) 97 06/29/19 17:30 110 23 118/53 (74) 96 06/29/19 17:03 111 21 40 06/29/19 17:00 127/46 06/29/19 17:00 109 22 127/46 (73) 96 06/29/19 16:00 98.4 109 20 122/45 (70) 96 06/29/19 16:00 122/45 06/29/19 16:00 Mechanical Ventilator 06/29/19 16:00 35 06/29/19 16:00 111 06/29/19 15:30 109 19 118/52 (74) 96 06/29/19 15:00 110 19 118/50 (72) 96 06/29/19 15:00 118/50 06/29/19 14:30 109 20 40 06/29/19 14:30 113 23 137/56 (83) 97 06/29/19 14:00 124/57 06/29/19 14:00 113 20 124/57 (79) 98 06/29/19 13:30 114 19 136/41 (72) 97 06/29/19 13:13 86 20 96 06/29/19 13:10 104/56 06/29/19 13:00 141/63 06/29/19 13:00 98.4 112 17 141/63 (89) 97 06/29/19 12:53 102 20 96 06/29/19 12:30 102 16 84/52 (63) 93 06/29/19 12:30 102 16 40 06/29/19 12:00 35 06/29/19 12:00 120 25 134/49 (77) 96 06/29/19 12:00 134/49 06/29/19 12:00 115 06/29/19 12:00 Mechanical Ventilator 06/29/19 11:15 112 21 40 06/29/19 11:00 119/48 06/29/19 11:00 109 16 119/48 (71) 97 06/29/19 10:30 98.3 111 15 118/50 (72) 97 06/29/19 10:00 110 16 112/56 (74) 98 06/29/19 10:00 112/56 06/29/19 09:30 112 17 124/41 (68) 97 06/29/19 09:25 98 06/29/19 09:25 112 18 35 35 06/29/19 09:00 134/50 06/29/19 09:00 112 16 134/50 (78) 96 06/29/19 08:15 109 16 130/66 (87) 97 06/29/19 08:00 106 06/29/19 08:00 98.7 107 16 111/57 (75) 97 06/29/19 08:00 111/57 06/29/19 08:00 Mechanical Ventilator 06/29/19 08:00 35 Intake and Output 06/29/19 06/30/19 19:00 07:00 Intake Total 1752.5 ml 1980 ml Output Total 320 ml 430 ml Balance 1432.5 ml 1550 ml IV Total 1752.5 ml 1980 ml Output Urine Total 320 ml 430 ml # Bowel Movements 5 2 General Appearance: no acute distress HEENT: normocephalic Respiratory/Chest: chest wall non-tender, lungs clear Cardiovascular: normal peripheral pulses, normal rate Abdomen: normal bowel sounds Microbiology Date/Time Source Procedure Growth Status 06/28/19 11:00 Sputum Induced Gram Stain - Final Complete 06/28/19 11:00 Sputum Induced Sputum Culture - Final NORMAL UPPER RESPIRATORY RICHARD PRESENT Complete 06/28/19 03:00 Rectum VRE Culture - Final NO VANCOMYCIN RESISTANT ENTEROCOCCUS ... Complete 06/28/19 03:00 Rectum - Final NO CARBAPENEM-RESISTANT ENTEROBACTERI... Complete Laboratory Tests 06/29/19 10:55: Arterial Blood pH 7.412, Arterial Blood Partial Pressure CO2 24.1*L, Arterial Blood Partial Pressure O2 72.5L, Arterial Blood HCO3 15.0*L, Arterial Blood Oxygen Saturation 93.1L, Arterial Blood Base Excess -8.3L, James Test Positive 06/29/19 11:40: Lactic Acid Level 4.40H 06/29/19 15:30: Urine Color Yellow, Urine Appearance Clear, Urine pH 6, Urine Specific [place] 1.015, Urine Protein Negative, Urine Glucose (UA) 2+H, Urine Ketones 1+H, Urine Blood Negative, Urine Nitrite Negative, Urine Bilirubin Negative, Urine Urobilinogen Normal, Urine Leukocyte Esterase Negative 06/29/19 15:44: Lactic Acid Level 3.20H 06/30/19 04:00: Lactic Acid Level 2.50H 06/30/19 04:30: White Blood Count 19.0H, Red Blood Count 2.59L, Hemoglobin 8.2L, Hematocrit 23.4L, Mean Corpuscular Volume 90, Mean Corpuscular Hemoglobin 31.6H, Mean Corpuscular Hemoglobin Concent 34.9, Red Cell Distribution Width 16.8H, Platelet Count 95#L, Mean Platelet Volume 8.3, Neutrophils (%) (Auto) , Lymphocytes (%) (Auto) , Monocytes (%) (Auto) , Eosinophils (%) (Auto) , Basophils (%) (Auto) , Neutrophils % (Manual) [Pending], Lymphocytes % (Manual) [Pending], Platelet Estimate [Pending], Platelet Morphology [Pending], Sodium Level 143, Potassium Level 4.1, Chloride Level 115H, Carbon Dioxide Level 20L, Anion Gap 9, Blood Urea Nitrogen 47H, Creatinine 0.8, Estimat Glomerular Filtration Rate > 60, Glucose Level 184H, Calcium Level 7.1L, Total Bilirubin 2.3H, Direct Bilirubin 0.5H, Aspartate Amino Transf (AST/SGOT) 1202H, Alanine Aminotransferase (ALT/SGPT) 903H, Alkaline Phosphatase 150H, Total Protein 4.3L , Albumin 1.7L, Globulin 2.6, Albumin/Globulin Ratio 0.7L Current Medications Medications (Trade) Dose Ordered Sig/Naseem Route PRN Reason Start Time Stop Time Status Last Admin Dose Admin Ceftriaxone Sodium 1 gm/ Sodium Chloride 55 ml @ 110 mls/hr DAILY IVPB 06/30/19 09:00 07/05/19 08:59 Chlorhexidine Gluconate (Mer-Hex 2%) 1 applic DAILY@2000 TOPIC 06/28/19 20:00 07/28/19 19:59 06/29/19 19:59 Dextrose (Dextrose 50%) 25 ml Q30M PRN IV Hypoglycemia 06/28/19 05:00 07/28/19 04:59 Dextrose (Dextrose 50%) 50 ml Q30M PRN IV Hypoglycemia 06/28/19 05:00 07/28/19 04:59 Insulin Aspart (NovoLOG) BEFORE MEALS AND HS SUBQ 06/28/19 06:30 07/28/19 06:29 06/30/19 06:39 Morphine Sulfate (Morphine Sulfate) 2 mg Q4H PRN IVP For Pain 06/28/19 09:15 07/05/19 09:14 06/29/19 02:29 Norepinephrine Bitartrate 4 mg/ Dextrose 250 ml @ 0 mls/hr Q24H IV 06/28/19 10:30 07/28/19 10:29 06/30/19 06:51 Octreotide Acetate 500 mcg/ Sodium Chloride 500 ml @ 50 mls/hr Q10H IV 06/28/19 10:00 07/28/19 09:59 06/30/19 02:01 Ondansetron HCl (Zofran) 4 mg Q6H PRN IVP Nausea & Vomiting 06/28/19 16:30 07/28/19 16:29 06/28/19 22:07 Pantoprazole 80 mg/Sodium Chloride 250 ml @ 25 mls/hr Q10H IV 06/28/19 10:00 07/28/19 09:59 06/30/19 02:01 Sodium Chloride 1,000 ml @ 75 mls/hr [id number] IV 06/28/19 05:00 07/28/19 04:59 06/29/19 21:00 James Zeng MD Jun 30, 2019 08:00
--- NOTE | 2019-06-30 08:30 | NUR ---
NURSE NOTES: SEEN AND EXAMINED BY DR ROBERTS AND GAVE ORDER NOT TO INSERT NGT/OGT. PATIENT KEPT CLEAN AND DRY. ORAL CARE DONE. NOTED BLACK TARRY STOOL IN MODERATED AMOUNT. WILL CONTINUE TO MONITOR.
[2019-06-30] MEDS: cefTRIAXone 1 GM in NS 55 ML IVPB SCH (08:44)
--- NOTE | 2019-06-30 09:15 | NUR ---
RADIOLOGY DEPT, CHEST X-RAY DONE.-P.DYE
--- NOTE | 2019-06-30 09:19 | Diagnostic Imaging Report ---
EXAM: XR Chest, 1 View CLINICAL HISTORY: SOB TECHNIQUE: Frontal view of the chest. COMPARISON: Chest x-ray 06/28/19 127 FINDINGS: Lungs: Improved lung volumes. Mild increased vascular interstitial prominence. Pleural space: Unremarkable. No pneumothorax. Heart: Unremarkable. No cardiomegaly. Mediastinum: Unremarkable. Bones/joints: Unremarkable. Tubes, lines and devices: Endotracheal tube has been pulled back and is now 2 cm above the halima in good position. IMPRESSION: 1. Endotracheal tube has been pulled back and is now 2 cm above the halima in good position. 2. Improved lung volumes. Mild increased vascular interstitial prominence.
--- NOTE | 2019-06-30 09:43 | NUR ---
NURSE NOTES: INFORMED DR CABA THAT SHABNAM GUZMAN WANTS TO SPEAK TO HER.
--- NOTE | 2019-06-30 11:38 | NUR ---
NURSE NOTES: SEEN AND EXAMINED BY DR BORJA. NNO. WILL CONTINUE TO MONITOR.
--- NOTE | 2019-06-30 12:40 | Surgery Progress Note ---
Surgery Progress Note Subjective Additional Comments prognosis guarded in icu ill appearing Objective Last 24 Hour Vital Signs Date Time Temp Pulse Resp B/P (MAP) Pulse Ox O2 Delivery O2 Flow Rate FiO2 06/30/19 11:59 99 23 40 06/30/19 11:30 98 22 124/44 (70) 99 06/30/19 11:00 95 22 109/40 (63) 99 06/30/19 11:00 109/40 06/30/19 10:30 98 22 113/39 (63) 99 06/30/19 10:00 108/38 06/30/19 10:00 97 23 105/38 (60) 98 06/30/19 09:30 105 26 127/47 (73) 98 06/30/19 09:11 106 28 40 06/30/19 09:00 116/40 06/30/19 09:00 109 28 136/53 (80) 99 06/30/19 08:30 105 25 123/44 (70) 99 06/30/19 08:00 110 06/30/19 08:00 40 06/30/19 08:00 Mechanical Ventilator 06/30/19 08:00 99.6 105 26 124/43 (70) 99 06/30/19 08:00 125/50 06/30/19 07:30 109 24 132/54 (80) 97 06/30/19 07:12 103 23 40 06/30/19 07:00 108 23 111/45 (67) 97 06/30/19 06:51 129/46 06/30/19 06:30 106 24 117/44 (68) 97 06/30/19 06:00 104 22 122/45 (70) 97 06/30/19 05:30 106 23 122/55 (77) 97 06/30/19 05:00 103 20 40 06/30/19 05:00 102 23 115/48 (70) 97 06/30/19 04:30 104 23 118/51 (73) 97 06/30/19 04:00 40 06/30/19 04:00 105 06/30/19 04:00 98.6 105 23 125/50 (75) 96 06/30/19 04:00 Mechanical Ventilator 06/30/19 03:30 108 24 117/53 (74) 96 06/30/19 03:18 89 18 40 06/30/19 03:00 108 24 123/52 (75) 97 06/30/19 02:30 111 25 131/44 (73) 96 06/30/19 02:00 110 24 130/47 (74) 97 06/30/19 01:34 77 18 40 06/30/19 01:30 111 24 123/52 (75) 97 06/30/19 01:00 111 26 133/40 (71) 97 06/30/19 00:30 110 25 114/46 (68) 97 06/30/19 00:00 40 06/30/19 00:00 Mechanical Ventilator 06/30/19 00:00 110 06/30/19 00:00 98.8 110 25 126/41 (69) 96 06/29/19 23:30 111 23 135/44 (74) 96 06/29/19 23:00 109 22 122/47 (72) 96 06/29/19 22:50 107 20 40 06/29/19 22:30 109 22 127/46 (73) 97 06/29/19 22:00 111 24 129/50 (76) 97 06/29/19 21:30 112 24 134/46 (75) 97 06/29/19 21:20 109 21 40 06/29/19 21:00 112 23 132/45 (74) 97 06/29/19 20:30 111 23 121/53 (75) 97 06/29/19 20:00 98.7 111 25 123/48 (73) 98 06/29/19 20:00 Mechanical Ventilator 06/29/19 20:00 40 06/29/19 20:00 111 06/29/19 19:30 108 22 124/47 (72) 97 06/29/19 19:25 112 18 97 Mechanical Ventilator 30 06/29/19 19:25 111 22 40 06/29/19 19:00 110 22 127/37 (67) 97 06/29/19 19:00 123/40 06/29/19 18:00 129/41 06/29/19 18:00 108 22 129/41 (70) 97 06/29/19 17:30 110 23 118/53 (74) 96 06/29/19 17:03 111 21 40 06/29/19 17:00 127/46 06/29/19 17:00 109 22 127/46 (73) 96 06/29/19 16:00 98.4 109 20 122/45 (70) 96 06/29/19 16:00 122/45 06/29/19 16:00 Mechanical Ventilator 06/29/19 16:00 35 06/29/19 16:00 111 06/29/19 15:30 109 19 118/52 (74) 96 06/29/19 15:00 110 19 118/50 (72) 96 06/29/19 15:00 118/50 06/29/19 14:30 109 20 40 06/29/19 14:30 113 23 137/56 (83) 97 06/29/19 14:00 124/57 06/29/19 14:00 113 20 124/57 (79) 98 06/29/19 13:30 114 19 136/41 (72) 97 06/29/19 13:13 86 20 96 06/29/19 13:10 104/56 06/29/19 13:00 141/63 06/29/19 13:00 98.4 112 17 141/63 (89) 97 06/29/19 12:53 102 20 96 I&O Intake and Output 06/29/19 06/30/19 18:59 06:59 Intake Total 1745.0 ml 1980 ml Output Total 780 ml 430 ml Balance 965.0 ml 1550 ml IV Total 1745.0 ml 1980 ml Output Urine Total 780 ml 430 ml # Voids 3 # Bowel Movements 5 2 Dressing: other Wound: other Drains: other Cardiovascular: RSR Respiratory: decreased breath sounds Abdomen: soft, distended, non-tender, decreased bowel sounds Extremities: no cyanosis Laboratory Tests Test 06/29/19 15:30 06/29/19 15:44 06/30/19 04:00 06/30/19 04:30 Urine Color Yellow Urine Appearance Clear Urine pH 6 (4.5-8.0) Urine Specific [place] 1.015 (1.005-1.035) Urine Protein Negative (NEGATIVE) Urine Glucose (UA) 2+ (NEGATIVE) H Urine Ketones 1+ (NEGATIVE) H Urine Blood Negative (NEGATIVE) Urine Nitrite Negative (NEGATIVE) Urine Bilirubin Negative (NEGATIVE) Urine Urobilinogen Normal MG/DL (0.0-1.0) Urine Leukocyte Esterase Negative (NEGATIVE) Lactic Acid Level 3.20 mmol/L (0.66-2.22) H 2.50 mmol/L (0.4-2.0) H White Blood Count 19.0 K/UL (4.8-10.8) H Red Blood Count 2.59 M/UL (4.20-5.40) L Hemoglobin 8.2 G/DL (12.0-16.0) L Hematocrit 23.4 % (37.0-47.0) L Mean Corpuscular Volume 90 FL (80-99) Mean Corpuscular Hemoglobin 31.6 PG (27.0-31.0) H Mean Corpuscular Hemoglobin Concent 34.9 G/DL (32.0-36.0) Red Cell Distribution Width 16.8 % (11.6-14.8) H Platelet Count 95 K/UL (150-450) #L Mean Platelet Volume 8.3 FL (6.5-10.1) Neutrophils (%) (Auto) % (45.0-75.0) Lymphocytes (%) (Auto) % (20.0-45.0) Monocytes (%) (Auto) % (1.0-10.0) Eosinophils (%) (Auto) % (0.0-3.0) Basophils (%) (Auto) % (0.0-2.0) Differential Total Cells Counted 100 Neutrophils % (Manual) 89 % (45-75) H Lymphocytes % (Manual) 3 % (20-45) L Monocytes % (Manual) 8 % (1-10) Eosinophils % (Manual) 0 % (0-3) Basophils % (Manual) 0 % (0-2) Band Neutrophils 0 % (0-8) Platelet Estimate Decreased L Platelet Morphology Normal Polychromasia 2+ Sodium Level 143 MMOL/L (136-145) Potassium Level 4.1 MMOL/L (3.5-5.1) Chloride Level 115 MMOL/L (98-107) H Carbon Dioxide Level 20 MMOL/L (21-32) L Anion Gap 9 mmol/L (5-15) Blood Urea Nitrogen 47 mg/dL (7-18) H Creatinine 0.8 MG/DL (0.55-1.30) Estimat Glomerular Filtration Rate > 60 mL/min (>60) Glucose Level 184 MG/DL (74-106) H Calcium Level 7.1 MG/DL (8.5-10.1) L Total Bilirubin 2.3 MG/DL (0.2-1.0) H Direct Bilirubin 0.5 MG/DL (0.0-0.3) H Aspartate Amino Transf (AST/SGOT) 1202 U/L (15-37) H Alanine Aminotransferase (ALT/SGPT) 903 U/L (12-78) H Alkaline Phosphatase 150 U/L (46-116) H Total Protein 4.3 G/DL (6.4-8.2) L Albumin 1.7 G/DL (3.4-5.0) L Globulin 2.6 g/dL Albumin/Globulin Ratio 0.7 (1.0-2.7) L Test 06/30/19 08:15 06/30/19 12:00 Lactic Acid Level 2.40 mmol/L (0.66-2.22) H Total Creatine Kinase Pending Acetaminophen Level Pending Plan Problems: (1) Cirrhosis (2) Varices, esophageal (3) GI bleed Assessment & Plan: 69F with acute GI bleed. etiology likely prior varices anemia on admission and transfused currently in ICU intubated on support GI plan for EGD soon after eval for cardiac npo iv fluids ppi and oct gtt will follow with recs thank you (4) Acute GI bleeding Zaid Wong Jun 30, 2019 12:40
[2019-06-30 12:49] LABS: CREATINE KINASE 123 U/L (26-308)
--- NOTE | 2019-06-30 13:13 | General Progress Note ---
Assessment/Plan Status: stable Assessment/Plan: Assessment - Cirrhosis - UGIB due to esophageal varicies - Resp failure - anemia - lactic acidosis - leukocytosis - guarded Recommendations - No NGT - serial CBC - transfuse PRN to keep Hg > 7 - keep NPO - PPI - Change to IV BID - continue Sandostatin gtt at 50/hr - IV abx Subjective Allergies: Coded Allergies: No Known Allergies (Unverified , 06/27/19) Subjective above noted d/w RN less dark BM noted intubated Objective Last 24 Hour Vital Signs Date Time Temp Pulse Resp B/P (MAP) Pulse Ox O2 Delivery O2 Flow Rate FiO2 06/30/19 12:00 40 06/30/19 11:59 99 23 40 06/30/19 11:30 98 22 124/44 (70) 99 06/30/19 11:00 95 22 109/40 (63) 99 06/30/19 11:00 109/40 06/30/19 10:30 98 22 113/39 (63) 99 06/30/19 10:00 108/38 06/30/19 10:00 97 23 105/38 (60) 98 06/30/19 09:30 105 26 127/47 (73) 98 06/30/19 09:11 106 28 40 06/30/19 09:00 116/40 06/30/19 09:00 109 28 136/53 (80) 99 06/30/19 08:30 105 25 123/44 (70) 99 06/30/19 08:00 110 06/30/19 08:00 40 06/30/19 08:00 Mechanical Ventilator 06/30/19 08:00 99.6 105 26 124/43 (70) 99 06/30/19 08:00 125/50 06/30/19 07:30 109 24 132/54 (80) 97 06/30/19 07:12 103 23 40 06/30/19 07:00 108 23 111/45 (67) 97 06/30/19 06:51 129/46 06/30/19 06:30 106 24 117/44 (68) 97 06/30/19 06:00 104 22 122/45 (70) 97 06/30/19 05:30 106 23 122/55 (77) 97 06/30/19 05:00 103 20 40 06/30/19 05:00 102 23 115/48 (70) 97 06/30/19 04:30 104 23 118/51 (73) 97 06/30/19 04:00 40 06/30/19 04:00 105 06/30/19 04:00 98.6 105 23 125/50 (75) 96 06/30/19 04:00 Mechanical Ventilator 06/30/19 03:30 108 24 117/53 (74) 96 06/30/19 03:18 89 18 40 06/30/19 03:00 108 24 123/52 (75) 97 06/30/19 02:30 111 25 131/44 (73) 96 06/30/19 02:00 110 24 130/47 (74) 97 06/30/19 01:34 77 18 40 06/30/19 01:30 111 24 123/52 (75) 97 06/30/19 01:00 111 26 133/40 (71) 97 06/30/19 00:30 110 25 114/46 (68) 97 06/30/19 00:00 40 06/30/19 00:00 Mechanical Ventilator 06/30/19 00:00 110 06/30/19 00:00 98.8 110 25 126/41 (69) 96 06/29/19 23:30 111 23 135/44 (74) 96 06/29/19 23:00 109 22 122/47 (72) 96 06/29/19 22:50 107 20 40 06/29/19 22:30 109 22 127/46 (73) 97 06/29/19 22:00 111 24 129/50 (76) 97 06/29/19 21:30 112 24 134/46 (75) 97 06/29/19 21:20 109 21 40 06/29/19 21:00 112 23 132/45 (74) 97 06/29/19 20:30 111 23 121/53 (75) 97 06/29/19 20:00 98.7 111 25 123/48 (73) 98 06/29/19 20:00 Mechanical Ventilator 06/29/19 20:00 40 06/29/19 20:00 111 06/29/19 19:30 108 22 124/47 (72) 97 06/29/19 19:25 112 18 97 Mechanical Ventilator 30 06/29/19 19:25 111 22 40 06/29/19 19:00 110 22 127/37 (67) 97 06/29/19 19:00 123/40 06/29/19 18:00 129/41 06/29/19 18:00 108 22 129/41 (70) 97 06/29/19 17:30 110 23 118/53 (74) 96 06/29/19 17:03 111 21 40 06/29/19 17:00 127/46 06/29/19 17:00 109 22 127/46 (73) 96 06/29/19 16:00 98.4 109 20 122/45 (70) 96 06/29/19 16:00 122/45 06/29/19 16:00 Mechanical Ventilator 06/29/19 16:00 35 06/29/19 16:00 111 06/29/19 15:30 109 19 118/52 (74) 96 06/29/19 15:00 110 19 118/50 (72) 96 06/29/19 15:00 118/50 06/29/19 14:30 109 20 40 06/29/19 14:30 113 23 137/56 (83) 97 06/29/19 14:00 124/57 06/29/19 14:00 113 20 124/57 (79) 98 06/29/19 13:30 114 19 136/41 (72) 97 06/29/19 13:13 86 20 96 06/29/19 13:10 104/56 06/29/19 13:00 141/63 06/29/19 13:00 98.4 112 17 141/63 (89) 97 Intake and Output 06/29/19 06/30/19 18:59 06:59 Intake Total 1745.0 ml 1980 ml Output Total 780 ml 430 ml Balance 965.0 ml 1550 ml IV Total 1745.0 ml 1980 ml Output Urine Total 780 ml 430 ml # Voids 3 # Bowel Movements 5 2 Laboratory Tests 06/29/19 15:30: Urine Color Yellow, Urine Appearance Clear, Urine pH 6, Urine Specific [place] 1.015, Urine Protein Negative, Urine Glucose (UA) 2+H, Urine Ketones 1+H, Urine Blood Negative, Urine Nitrite Negative, Urine Bilirubin Negative, Urine Urobilinogen Normal, Urine Leukocyte Esterase Negative 06/29/19 15:44: Lactic Acid Level 3.20H 06/30/19 04:00: Lactic Acid Level 2.50H 06/30/19 04:30: White Blood Count 19.0H, Red Blood Count 2.59L, Hemoglobin 8.2L, Hematocrit 23.4L, Mean Corpuscular Volume 90, Mean Corpuscular Hemoglobin 31.6H, Mean Corpuscular Hemoglobin Concent 34.9, Red Cell Distribution Width 16.8H, Platelet Count 95#L, Mean Platelet Volume 8.3, Neutrophils (%) (Auto) , Lymphocytes (%) (Auto) , Monocytes (%) (Auto) , Eosinophils (%) (Auto) , Basophils (%) (Auto) , Differential Total Cells Counted 100, Neutrophils % ( Manual) 89H, Lymphocytes % (Manual) 3L, Monocytes % (Manual) 8, Eosinophils % ( Manual) 0, Basophils % (Manual) 0, Band Neutrophils 0, Platelet Estimate DecreasedL, Platelet Morphology Normal, Polychromasia 2+, Sodium Level 143, Potassium Level 4.1, Chloride Level 115H, Carbon Dioxide Level 20L, Anion Gap 9 , Blood Urea Nitrogen 47H, Creatinine 0.8, Estimat Glomerular Filtration Rate > 60, Glucose Level 184H, Calcium Level 7.1L, Total Bilirubin 2.3H, Direct Bilirubin 0.5H, Aspartate Amino Transf (AST/SGOT) 1202H, Alanine Aminotransferase (ALT/SGPT) 903H, Alkaline Phosphatase 150H, Total Protein 4.3L , Albumin 1.7L, Globulin 2.6, Albumin/Globulin Ratio 0.7L 06/30/19 08:15: Lactic Acid Level 2.40H 06/30/19 11:30: Ceruloplasmin [Pending], F-Actin IgG Antibody [Pending], Cytomegalovirus IgG Antibody [Pending], Reagan-Lopez Virus Capsid Ag IgM Ab [Pending] 06/30/19 12:00: Total Creatine Kinase 123, Acetaminophen Level 3L Height (Feet): 5 Height (Inches): 2.00 Weight (Pounds): 112 Objective Debilitated L woman NCAT (+) intubated CTA RR abd soft NT ND no edema Karen Nunes MD Jun 30, 2019 13:13
--- NOTE | 2019-06-30 13:30 | NUR ---
NURSE NOTES: ORAL CARE DONE. REPOSITIONED PATIENT. NO SIGNS OF DISTRESS. WILL CONTINUE TO MONITOR.
[2019-06-30] MEDS: Pantoprazole Inj IVP SCH ×2 (13:38→20:48)
--- NOTE | 2019-06-30 13:42 | General Progress Note ---
Assessment/Plan Status: stable Assessment/Plan: 69-year-old female with past medical history of liver cirrhosis without known etiology presents for hematemesis #Hypovolemic shock secondary to hematemesis -ivf's -s/p PRBC, platelet transfusion -GI consult, appreciate recs: EGD 06/29/2019, esophageal varices x7 banding. Blood in abdomen. A limited however no active bleeding noted -Hemoglobin stable, continue to monitor -Surgery consult, appreciate recs -Trend lactate -Wean levofed -Cardiology consult, appreciate recs -Echo: ef wnl -Trend troponins: reviewed #Intubation for airway protection -Pulmonology consult, appreciate recs -After EGD if bleeding is controlled, wean to extubation -RT -Vent settings: FiO2 40% #Urinary retention -Straight cath with 500 cc yesterday -Continue Rouse -Monitor ins and outs -UA negative #Worsening leukocytosis, continue to monitor -Check UA: Negative -Check blood cultures, not yet resulted -Follow-up chest x-ray: No infiltrate -Check C. difficile -Can consider SBP however patient on Rocephin #Liver cirrhosis with esophageal varices -Status post EGD as above -Ascites present, continue Rocephin -Protonix 40 mg IV twice daily -Octreotide drip, for 72 hours after pending -Monitor CBC and BMP -Patient denies alcohol use, family states reason for liver cirrhosis is unknown. Differentials include Saunders versus autoimmune causes -Autoimmune work-up, can be deferred -Hepatitis panel pending -Follow-up work-up pending -Right upper quadrant ultrasound: Reviewed -Continue lactulose -CEA normal #Hepatic encephalopathy -Continue lactulose as per above #Elevated troponin, likely secondary to demand ischemia -Cardiology consulted, appreciate recs -Echo: Within normal limits -Troponins downtrending, and stop checking further troponins #Lactic acidosis, improving -Secondary to #1 -Continue to monitor for other possible causes The time of my note may not reflect the time of my patient encounter. 45 minutes of critical time spent. This includes interpretation of charting, vitals, labs, imaging, exam. Subjective Date patient seen: Jun 30, 2019 Allergies: Coded Allergies: No Known Allergies (Unverified , 06/27/19) Subjective Patient nonverbal cannot obtain ROS, secondary to intubation and medical condition. Status post EGD times banding 7. Patient's slightly improved, winces to painful stimuli. Continues on levo fed. Hemoglobin stable. Objective Last 24 Hour Vital Signs Date Time Temp Pulse Resp B/P (MAP) Pulse Ox O2 Delivery O2 Flow Rate FiO2 06/30/19 13:11 97 22 40 06/30/19 13:00 98 24 109/37 (61) 98 06/30/19 13:00 109/37 06/30/19 12:30 95 24 111/40 (63) 99 06/30/19 12:00 110 06/30/19 12:00 Mechanical Ventilator 06/30/19 12:00 123/45 06/30/19 12:00 40 06/30/19 12:00 99.5 100 25 123/45 (71) 99 06/30/19 11:59 99 23 40 06/30/19 11:30 98 22 124/44 (70) 99 06/30/19 11:00 95 22 109/40 (63) 99 06/30/19 11:00 109/40 06/30/19 10:30 98 22 113/39 (63) 99 06/30/19 10:00 108/38 06/30/19 10:00 97 23 105/38 (60) 98 06/30/19 09:30 105 26 127/47 (73) 98 06/30/19 09:11 106 28 40 06/30/19 09:00 116/40 06/30/19 09:00 109 28 136/53 (80) 99 06/30/19 08:30 105 25 123/44 (70) 99 06/30/19 08:00 110 06/30/19 08:00 40 06/30/19 08:00 Mechanical Ventilator 06/30/19 08:00 99.6 105 26 124/43 (70) 99 06/30/19 08:00 125/50 06/30/19 07:30 109 24 132/54 (80) 97 06/30/19 07:12 103 23 40 06/30/19 07:00 108 23 111/45 (67) 97 06/30/19 06:51 129/46 06/30/19 06:30 106 24 117/44 (68) 97 06/30/19 06:00 104 22 122/45 (70) 97 06/30/19 05:30 106 23 122/55 (77) 97 06/30/19 05:00 103 20 40 8/24/19 05:00 102 23 115/48 (70) 97 06/30/19 04:30 104 23 118/51 (73) 97 06/30/19 04:00 40 06/30/19 04:00 105 06/30/19 04:00 98.6 105 23 125/50 (75) 96 06/30/19 04:00 Mechanical Ventilator 06/30/19 03:30 108 24 117/53 (74) 96 06/30/19 03:18 89 18 40 06/30/19 03:00 108 24 123/52 (75) 97 06/30/19 02:30 111 25 131/44 (73) 96 06/30/19 02:00 110 24 130/47 (74) 97 06/30/19 01:34 77 18 40 06/30/19 01:30 111 24 123/52 (75) 97 06/30/19 01:00 111 26 133/40 (71) 97 06/30/19 00:30 110 25 114/46 (68) 97 06/30/19 00:00 40 06/30/19 00:00 Mechanical Ventilator 06/30/19 00:00 110 06/30/19 00:00 98.8 110 25 126/41 (69) 96 06/29/19 23:30 111 23 135/44 (74) 96 06/29/19 23:00 109 22 122/47 (72) 96 06/29/19 22:50 107 20 40 06/29/19 22:30 109 22 127/46 (73) 97 06/29/19 22:00 111 24 129/50 (76) 97 06/29/19 21:30 112 24 134/46 (75) 97 06/29/19 21:20 109 21 40 06/29/19 21:00 112 23 132/45 (74) 97 06/29/19 20:30 111 23 121/53 (75) 97 06/29/19 20:00 98.7 111 25 123/48 (73) 98 06/29/19 20:00 Mechanical Ventilator 06/29/19 20:00 40 06/29/19 20:00 111 06/29/19 19:30 108 22 124/47 (72) 97 06/29/19 19:25 112 18 97 Mechanical Ventilator 30 06/29/19 19:25 111 22 40 06/29/19 19:00 110 22 127/37 (67) 97 06/29/19 19:00 123/40 06/29/19 18:00 129/41 06/29/19 18:00 108 22 129/41 (70) 97 06/29/19 17:30 110 23 118/53 (74) 96 06/29/19 17:03 111 21 40 06/29/19 17:00 127/46 06/29/19 17:00 109 22 127/46 (73) 96 06/29/19 16:00 98.4 109 20 122/45 (70) 96 06/29/19 16:00 122/45 06/29/19 16:00 Mechanical Ventilator 06/29/19 16:00 35 06/29/19 16:00 111 06/29/19 15:30 109 19 118/52 (74) 96 06/29/19 15:00 110 19 118/50 (72) 96 06/29/19 15:00 118/50 06/29/19 14:30 109 20 40 06/29/19 14:30 113 23 137/56 (83) 97 06/29/19 14:00 124/57 06/29/19 14:00 113 20 124/57 (79) 98 Intake and Output 06/29/19 06/30/19 18:59 06:59 Intake Total 1745.0 ml 1980 ml Output Total 780 ml 430 ml Balance 965.0 ml 1550 ml IV Total 1745.0 ml 1980 ml Output Urine Total 780 ml 430 ml # Voids 3 # Bowel Movements 5 2 Laboratory Tests 06/29/19 15:30: Urine Color Yellow, Urine Appearance Clear, Urine pH 6, Urine Specific [place] 1.015, Urine Protein Negative, Urine Glucose (UA) 2+H, Urine Ketones 1+H, Urine Blood Negative, Urine Nitrite Negative, Urine Bilirubin Negative, Urine Urobilinogen Normal, Urine Leukocyte Esterase Negative 06/29/19 15:44: Lactic Acid Level 3.20H 06/30/19 04:00: Lactic Acid Level 2.50H 06/30/19 04:30: White Blood Count 19.0H, Red Blood Count 2.59L, Hemoglobin 8.2L, Hematocrit 23.4L, Mean Corpuscular Volume 90, Mean Corpuscular Hemoglobin 31.6H, Mean Corpuscular Hemoglobin Concent 34.9, Red Cell Distribution Width 16.8H, Platelet Count 95#L, Mean Platelet Volume 8.3, Neutrophils (%) (Auto) , Lymphocytes (%) (Auto) , Monocytes (%) (Auto) , Eosinophils (%) (Auto) , Basophils (%) (Auto) , Differential Total Cells Counted 100, Neutrophils % ( Manual) 89H, Lymphocytes % (Manual) 3L, Monocytes % (Manual) 8, Eosinophils % ( Manual) 0, Basophils % (Manual) 0, Band Neutrophils 0, Platelet Estimate DecreasedL, Platelet Morphology Normal, Polychromasia 2+, Sodium Level 143, Potassium Level 4.1, Chloride Level 115H, Carbon Dioxide Level 20L, Anion Gap 9 , Blood Urea Nitrogen 47H, Creatinine 0.8, Estimat Glomerular Filtration Rate > 60, Glucose Level 184H, Calcium Level 7.1L, Total Bilirubin 2.3H, Direct Bilirubin 0.5H, Aspartate Amino Transf (AST/SGOT) 1202H, Alanine Aminotransferase (ALT/SGPT) 903H, Alkaline Phosphatase 150H, Total Protein 4.3L , Albumin 1.7L, Globulin 2.6, Albumin/Globulin Ratio 0.7L 06/30/19 08:15: Lactic Acid Level 2.40H 06/30/19 11:30: Ceruloplasmin [Pending], F-Actin IgG Antibody [Pending], Cytomegalovirus IgG Antibody [Pending], Reagan-Lopez Virus Capsid Ag IgM Ab [Pending] 06/30/19 12:00: Total Creatine Kinase 123, Acetaminophen Level 3L Height (Feet): 5 Height (Inches): 2.00 Weight (Pounds): 112 Objective GENERAL: Intubated, winces to painful stimuli HEENT: NCAT, icteric eyes, pupils PERRLA Neck: No cervical lymphadenopathy, trachea midline CV: tachy, no murmurs rubs or gallops RESP: No changes ABD: soft, non-distended, no TTP, ascites present EXT: Normal muscle tone, +5/5 muscle strength NEURO: As above, no tremors, normal muscle tone Aileen Hsieh DO Jun 30, 2019 13:42
--- NOTE | 2019-06-30 15:13 | NUR ---
NURSE NOTES: PATIENT KEPT CLEAN AND DRY. NOTED ANOTHER BLACK TARRY STOOL. FAMILY SEEN AT THE BEDSIDE. TOLERATING VENT SETTINGS. ORAL CARE DONE. SUCTIONED COPIOUS AMOUNT OF THICK YELLOW SECRETIONS. WILL CONTINUE TO MONITOR.
--- NOTE | 2019-06-30 15:44 | NUR ---
NURSE NOTES: INFORMED DR CABA ABOUT COPIOUS AMOUNT OF YELLOW THICK SECRETIONS AND ORDERED FOR SPUTUM CULTURE. WILL CONTINUE TO MONITOR.
[2019-06-30] MEDS ORDERED: 1/2 NS 1000ml IV ONE (16:20)
[2019-06-30] MEDS ORDERED: NS 275ml ONE (16:20)
--- NOTE | 2019-06-30 18:05 | NUR ---
NURSE NOTES: PATIENT KEPT CLEAN AND DRY. NO SIGNS OF DISTRESS OF THE MOMENT. SPUTUM SENT TO LAB FOR CULTURE. WILL CONTINUE TO MONITOR.
--- NOTE | 2019-06-30 19:03 | NUR ---
NURSE NOTES: NOTED ANOTHER BLACK TARRY STOOL. TLC CHANGED DRESSING CHANGED. FAMILY MEMBER SEEN AT THE BEDSIDE. NO SIGNS OF DISTRESS. WILL CONTINUE TO MONITOR.
--- NOTE | 2019-06-30 19:30 | NUR ---
NURSE NOTES: Received pt in no acute distress; obtunded; no eye opening even to deep pain. With hypoactive gag reflex, pupils 3 sluggish; sligh movement on deep pain stimuli. Remains orally intubated ; fiO2 . 40, saturating 97-100%. Secretions copious, white, frothy; chest sounds with scattered rhonchi. Afebrile, NSR on the monitor BP stable. left femoral TLC intact; Levophed gtt infuses at 4mcg/min; Sandostatin gtt at 50mcg/h and main IVF of 1/2 NS at 70ml/h. Abd ascitic; no BM at this time, No hematemesis. Pt has generalized edema; sclera icteric. FC intact, urine dark markus but clear. Skin intact. Family at bedside; plan of care explained. Will continue to monitor
--- NOTE | 2019-06-30 19:32 | NUR ---
HAND-OFF: Report given to Miguel Florian RN.
--- NOTE | 2019-06-30 20:21 | NUR ---
RESPIRATORY NOTE: Received pt. on 840 vent. Vent settings are: A/C rate of 16, Vt 550, FI02 40%. No respiratory distress noted, pt. sP02 @ 99%. Ambu bag @ BS. Vent plugged on red outlet. Will continue to monitor pt.
[2019-06-30] MEDS: Dyna-Hex 2% Top Sol 2oz TOPIC SCH (20:48)
--- NOTE | 2019-06-30 22:00 | NUR ---
NURSE NOTES: Neuro status unchanged; remains obtunded. VSS. Family keeps coming in and out 2 at a time. Oral care and suctioning done.
[2019-06-30] MEDS ORDERED: fentaNYL 100 mcg/2 mL IV ONE (22:08)
[2019-07-01] VITALS (35 sets, daily range): BP systolic 89–142; BP diastolic 31–112
--- NOTE | 2019-07-01 00:27 | NUR ---
NURSE NOTES: Temp 99.7 axillary. NSR, BP stable. Levophed gtt continues at 4mcg/min. No distress; family at the bedside. No bleeding, no hematemesis, no dark, tarry stools.
--- NOTE | 2019-07-01 02:00 | NUR ---
NURSE NOTES: Pt has thick copious secretions, oral care and suctioning done by RT. Pt now has hyperactive gag reflex and moves upper extremities on suctioning. Still obtunded. BP stable.
--- NOTE | 2019-07-01 04:00 | NUR ---
NURSE NOTES: Pt has moderate amount of semi-soft burgundy stool. No black tarry stool. BP 110 systolic; titrated Levophed down to 2mcg/min. Afebrile. Complete bed bath done. Pericare done as well. Skin intact. Pt moving UE more but remains obtunded.
[2019-07-01] MEDS: NovoLOG Insulin Flexpen SUBQ SCH ×4 (05:40→21:00)
--- NOTE | 2019-07-01 06:00 | NUR ---
NURSE NOTES: Levophed gtt titrated to off. BP stable. Pt remains obtunded. Family at the bedside.
--- NOTE | 2019-07-01 06:50 | NUR ---
RESPIRATORY NOTE: Patient received mechanically ventilated on PB 840 with current ordered vent settings that is orally intubated with a size 8.0 ETT with 20cm at the lip line. ETT tube is secured with commercial holster. Vent alarms are functional and audible. There is an ambu bag available at the bedside and the vent is connected to a red outlet. Will continue to monitor.
--- NOTE | 2019-07-01 07:17 | NUR ---
HAND-OFF: Report given to Mikayla Aguilar RN.
[2019-07-01 07:24] LABS: HEMOGLOBIN 8.2 G/DL (12.0-16.0); MEAN CORPUSCULAR VOLUME 91 FL (80-99); PLATELET COUNT 61 K/UL (150-450); RED BLOOD COUNT 2.63 M/UL (4.20-5.40); WHITE BLOOD COUNT 6.9 K/UL (4.8-10.8)
[2019-07-01 08:21] LABS: ALANINE AMINOTRANSFERASE 695 U/L (12-78); ALBUMIN 1.6 G/DL (3.4-5.0); ALBUMIN/GLOBULIN RATIO 0.6 (1.0-2.7); ALKALINE PHOSPHATASE 148 U/L (46-116); ANION GAP 9 mmol/L (5-15); ASPARTATE AMINO TRANSFERASE 485 U/L (15-37); BLOOD UREA NITROGEN 33 mg/dL (7-18); CARBON DIOXIDE 19 MMOL/L (21-32); CHLORIDE 115 MMOL/L (98-107); CREATININE 0.8 MG/DL (0.55-1.30); POTASSIUM 3.4 MMOL/L (3.5-5.1); SODIUM 143 MMOL/L (136-145)
[2019-07-01 08:22] LABS: BILIRUBIN,DIRECT 0.8 MG/DL (0.0-0.3)
[2019-07-01] MEDS: Pantoprazole Inj IVP SCH (08:50)
[2019-07-01] MEDS: cefTRIAXone 1 GM in NS 55 ML IVPB SCH (08:51)
[2019-07-01] MEDS: Octreotide Acetate 500 MCG in Sodium Chloride 499 ML IV SCH ×3 (08:51→23:43)
--- NOTE | 2019-07-01 09:18 | NUR ---
NURSE NOTES: Dr. arzate notified of patient PLT of 61 and ordered to Discontinue Protonix and give Pepcid 20mg q12hrs, no bleeding noted from Rouse or while suctioning through the Et-tube, thick yellow secretion while suctioning and has a active gag reflex.
--- NOTE | 2019-07-01 09:36 | NUR ---
NURSE NOTES: Dr. Nunes informed that patient has no active bleeding from ET-tube or Rouse, and no bleeding through stool, ordered to have Sandostatin changed to 25ml/hr. no further orders given at this time.
--- NOTE | 2019-07-01 10:19 | Pulmonology Progress Note ---
Assessment/Plan Assessment/Plan IMPRESSION: 1. Respiratory failure. Will maintain AC mode; fiO2 35%; rate 16 2. Upper GI bleed, likely gastric varices. S/p EGD 3. Diabetes mellitus. 4. Anemia. Hgb stable 5. Thrombocytopenia; 6. Likely hepatic encephalopathy; continue lactulose; has C diff + DISCUSSION: Continue IV fluids. Continue Protonix and octreotide. Maintain AC mode Continue lactulose Abx for C diff Hold weaning till off pressors and more responsive James Zeng M.D. Subjective Interval Events: Remains obtunded; off pressors; on vent Constitutional: Reports: no symptoms HEENT: Repors: no symptoms Respiratory: Reports: no symptoms Cardiovascular: Reports: no symptoms Gastrointestinal/Abdominal: Reports: no symptoms Genitourinary: Reports: no symptoms Allergies: Coded Allergies: No Known Allergies (Unverified , 06/27/19) Objective Last 24 Hour Vital Signs Date Time Temp Pulse Resp B/P (MAP) Pulse Ox O2 Delivery O2 Flow Rate FiO2 07/01/19 09:00 94 19 111/45 (67) 97 07/01/19 08:31 99 22 40 07/01/19 08:30 97 21 99/31 (53) 97 07/01/19 08:00 40 07/01/19 08:00 98.8 97 19 108/34 (58) 97 07/01/19 07:30 97 19 111/51 (71) 97 07/01/19 07:00 98 20 99/46 (63) 97 07/01/19 06:45 99 18 40 07/01/19 06:30 101 21 106/45 (65) 97 07/01/19 06:00 104 22 115/51 (72) 96 07/01/19 06:00 115/51 07/01/19 05:30 105 17 129/56 (80) 98 07/01/19 05:27 100 20 40 07/01/19 05:00 106 22 123/46 (71) 98 07/01/19 05:00 123/46 07/01/19 04:30 105 23 125/48 (73) 100 07/01/19 04:00 98.7 100 20 110/41 (64) 98 07/01/19 04:00 104 07/01/19 04:00 110/41 07/01/19 04:00 40 07/01/19 04:00 Mechanical Ventilator 07/01/19 03:30 103 24 40 07/01/19 03:30 103 24 129/42 (71) 98 07/01/19 03:00 106 24 142/56 (84) 97 07/01/19 03:00 142/56 07/01/19 02:30 93 18 111/45 (67) 98 07/01/19 02:00 110/40 07/01/19 02:00 94 19 110/40 (63) 98 07/01/19 01:45 97 22 40 07/01/19 01:30 93 19 112/39 (63) 98 07/01/19 01:00 92 17 109/37 (61) 98 07/01/19 01:00 109/37 07/01/19 00:30 93 18 112/42 (65) 97 07/01/19 00:00 97 07/01/19 00:00 Mechanical Ventilator 07/01/19 00:00 40 07/01/19 00:00 120/47 07/01/19 00:00 99.7 97 18 120/47 (71) 97 06/30/19 23:45 101 19 121/43 (69) 96 06/30/19 23:32 103/43 06/30/19 23:30 106 21 135/51 (79) 100 06/30/19 23:23 98 19 40 06/30/19 23:15 97 19 123/48 (73) 98 06/30/19 23:00 92 18 107/42 (63) 98 06/30/19 23:00 107/42 06/30/19 22:30 93 19 103/43 (63) 98 06/30/19 22:00 121/43 06/30/19 22:00 101 18 121/43 (69) 96 06/30/19 21:30 94 18 112/38 (62) 98 06/30/19 21:22 97 17 40 06/30/19 21:00 117/52 06/30/19 21:00 95 20 110/45 (66) 97 06/30/19 20:45 98 19 117/52 (73) 97 06/30/19 20:30 100 23 121/48 (72) 97 06/30/19 20:15 93 19 116/34 (61) 98 06/30/19 20:00 Mechanical Ventilator 06/30/19 20:00 98.7 94 19 113/44 (67) 98 06/30/19 20:00 40 06/30/19 20:00 113/44 06/30/19 20:00 95 06/30/19 19:30 93 18 109/38 (61) 98 06/30/19 19:15 94 18 40 06/30/19 19:00 104 20 105/90 (95) 97 06/30/19 19:00 105/90 06/30/19 18:30 98 21 118/40 (66) 95 06/30/19 18:01 102 23 129/49 (75) 99 06/30/19 18:00 125/49 06/30/19 17:30 97 21 118/43 (68) 98 06/30/19 17:30 95 22 40 06/30/19 17:00 104 23 125/49 (74) 100 06/30/19 17:00 129/45 06/30/19 16:30 94 23 111/41 (64) 98 06/30/19 16:15 95 22 119/41 (67) 98 06/30/19 16:00 Mechanical Ventilator 06/30/19 16:00 99 06/30/19 16:00 111/41 06/30/19 16:00 40 06/30/19 16:00 99.8 06/30/19 16:00 98 22 113/41 (65) 99 06/30/19 15:30 100 24 114/41 (65) 100 06/30/19 15:21 99 22 40 06/30/19 15:00 101 25 115/40 (65) 99 06/30/19 15:00 115/40 06/30/19 14:30 92 22 100/37 (58) 98 06/30/19 14:00 108/39 06/30/19 14:00 97 24 108/39 (62) 98 06/30/19 13:30 95 23 112/39 (63) 97 06/30/19 13:11 97 22 40 06/30/19 13:00 98 24 109/37 (61) 98 8/24/19 13:00 109/37 06/30/19 12:30 95 24 111/40 (63) 99 06/30/19 12:00 110 06/30/19 12:00 Mechanical Ventilator 06/30/19 12:00 123/45 06/30/19 12:00 40 06/30/19 12:00 99.5 100 25 123/45 (71) 99 06/30/19 11:59 99 23 40 06/30/19 11:30 98 22 124/44 (70) 99 06/30/19 11:00 95 22 109/40 (63) 99 06/30/19 11:00 109/40 06/30/19 10:30 98 22 113/39 (63) 99 Intake and Output 06/30/19 07/01/19 19:00 07:00 Intake Total 1897 ml 1635.0 ml Output Total 520 ml 550 ml Balance 1377 ml 1085.0 ml Intake Oral 0 ml IV Total 1897 ml 1635.0 ml Output Urine Total 520 ml 550 ml # Bowel Movements 4 2 General Appearance: no acute distress HEENT: normocephalic Respiratory/Chest: chest wall non-tender, lungs clear Cardiovascular: normal peripheral pulses, normal rate Abdomen: normal bowel sounds Microbiology Date/Time Source Procedure Growth Status 06/30/19 18:00 Sputum Induced Gram Stain - Final Resulted 06/30/19 18:00 Sputum Induced Sputum Culture Pending Resulted 06/28/19 11:00 Sputum Induced Gram Stain - Final Complete 06/28/19 11:00 Sputum Induced Sputum Culture - Final NORMAL UPPER RESPIRATORY RICHARD PRESENT Complete 06/30/19 14:50 Stool Clostridium difficile Toxin Assay - Final Complete Laboratory Tests 06/30/19 11:30: Ceruloplasmin [Pending], F-Actin IgG Antibody [Pending], Cytomegalovirus IgG Antibody [Pending], Reagan-Lopez Virus Capsid Ag IgM Ab [Pending] 06/30/19 12:00: Total Creatine Kinase 123, Acetaminophen Level 3L 06/30/19 14:10: Lactic Acid Level 1.80 07/01/19 06:10: Lactic Acid Level 1.90, White Blood Count 6.9#, Red Blood Count 2.63L, Hemoglobin 8.2L, Hematocrit 24.0L, Mean Corpuscular Volume 91, Mean Corpuscular Hemoglobin 31.3H, Mean Corpuscular Hemoglobin Concent 34.3, Red Cell Distribution Width 17.0H, Platelet Count 61L, Mean Platelet Volume 8.5, Neutrophils (%) (Auto) , Lymphocytes (%) (Auto) , Monocytes (%) (Auto) , Eosinophils (%) (Auto) , Basophils (%) (Auto) , Differential Total Cells Counted 100, Neutrophils % (Manual) 85H, Lymphocytes % (Manual) 7L, Monocytes % (Manual) 8, Eosinophils % (Manual) 0, Basophils % (Manual) 0, Band Neutrophils 0 , Platelet Estimate DecreasedL, Platelet Morphology Normal, Polychromasia 2+, Hypochromasia 1+, Anisocytosis 1+, Sodium Level 143, Potassium Level 3.4L, Chloride Level 115H, Carbon Dioxide Level 19L, Anion Gap 9, Blood Urea Nitrogen 33H, Creatinine 0.8, Estimat Glomerular Filtration Rate > 60, Glucose Level 183H , Calcium Level 7.0L, Total Bilirubin 3.0H, Direct Bilirubin 0.8H, Aspartate Amino Transf (AST/SGOT) 485H, Alanine Aminotransferase (ALT/SGPT) 695H, Alkaline Phosphatase 148H, Ammonia 55H, Total Protein 4.4L, Albumin 1.6L, Globulin 2.8, Albumin/Globulin Ratio 0.6L, Anti-Nuclear Antibody Screen [Pending ], Anti-Mitochondrial Antibody [Pending] Current Medications Medications (Trade) Dose Ordered Sig/Naseem Route PRN Reason Start Time Stop Time Status Last Admin Dose Admin Ceftriaxone Sodium 1 gm/ Sodium Chloride 55 ml @ 110 mls/hr DAILY IVPB 06/30/19 09:00 07/05/19 08:59 07/01/19 08:51 Chlorhexidine Gluconate (Mer-Hex 2%) 1 applic DAILY@1999 TOPIC 06/28/19 20:00 07/28/19 19:59 06/30/19 20:48 Dextrose (Dextrose 50%) 25 ml Q30M PRN IV Hypoglycemia 06/28/19 05:00 07/28/19 04:59 Dextrose (Dextrose 50%) 50 ml Q30M PRN IV Hypoglycemia 06/28/19 05:00 07/28/19 04:59 Famotidine (Pepcid I.v.) 20 mg Q12HR IVP 07/01/19 21:00 07/31/19 20:59 Insulin Aspart (NovoLOG) BEFORE MEALS AND HS SUBQ 06/28/19 06:30 07/28/19 06:29 07/01/19 05:40 Morphine Sulfate (Morphine Sulfate) 2 mg Q4H PRN IVP For Pain 06/28/19 09:15 07/05/19 09:14 06/29/19 02:29 Norepinephrine Bitartrate 4 mg/ Dextrose 250 ml @ 0 mls/hr Q24H IV 06/28/19 10:30 07/28/19 10:29 06/30/19 23:32 Octreotide Acetate 500 mcg/ Sodium Chloride 500 ml @ 25 mls/hr Q20H IV 07/01/19 09:45 07/31/19 09:44 Ondansetron HCl (Zofran) 4 mg Q6H PRN IVP Nausea & Vomiting 06/28/19 16:30 07/28/19 16:29 06/28/19 22:07 Sodium Chloride 1,000 ml @ 75 mls/hr [id number] IV 06/28/19 05:00 07/28/19 04:59 06/30/19 23:33 James Zeng MD Jul 01, 2019 10:19
--- NOTE | 2019-07-01 10:30 | NUR ---
NURSE NOTES: Dr. Zeng made aware of patient thick tannish secretions, will hold off on weaning until more responsive, gave orders to place patient on Flagyl 500mg q8hrs ivbp for C-Diff.
--- NOTE | 2019-07-01 10:54 | NUR ---
NURSE NOTES: Dr. Hsieh updated on patient progress and isolation status, gave order to have 60mEq of potassium IV and an lactulose enema for ammonia of 55. no further orders given at this time.
--- NOTE | 2019-07-01 12:27 | Hematology/Onc Progress Note ---
Assessment/Plan Assessment/Plan Assessment and Recs: # Anemia of GI bleed -- patient presents with occult+ bleeding, anemia panel reviewed iron stores are moderate but given 4 units prbc, can be falsely moderate, recheck in several days, anemia is due to variceal bleed --> as per GI eval, may need endoscopy --> has been started on ppi --> cea has been ordered - normal --> Hgb goal >7. Transfuse prn. --> (s/p 4 units prbc) --> Epogen or iron at this time is not particularly indicated --> Medications have been reviewed --> continue ppi and octreotide prn per gi --> hgb trend 8.8-->8.8-->8.2 # Thrombocytopenia - potential causes multifactorial, evaluate liver and viral etiologies to begin, also could be related to underlying medications patient has received. In this case is due to etoh abuse, esoph varices and cirrhosis is noted --> Hep panel pending and HIV negative --> US abd does show cirrhosis --> Peripheral smear ordered to evaluate for blasts /schistocytes does not show any --> abx and other meds have been reviewed --> ok for ppx if plt >50k w/ either heparin or lovenox --> Transfuse if Plt < 20k and fever, or if Plt < 10k without fever --> EGD per gi --> s/p plt transfusion on 06/29 # Varices, esophageal --> potential rupture as per gi recs # Cirrhosis --> with hepatic enceph --> gi recs prn # Resp failure on vent --> per pulm weaning sbt --> per pulm # Hypokalemia with dec K --> given IV k as per pcp The timing of this note does not necessarily reflect the time of the patient was seen. GREATLY APPRECIATE CONSULTATION. Subjective HEENT: Denies: no symptoms, eye pain, blurred vision, tearing, double vision, ear pain, ear discharge, nose pain, nose congestion, throat pain, throat swelling, mouth pain, mouth swelling, other Cardiovascular: Denies: no symptoms, chest pain, edema, irregular heart rate, lightheadedness, palpitations, syncope, other Respiratory: Denies: no symptoms, cough, shortness of breath, SOB with excertion, SOB at rest, sputum, wheezing, other Gastrointestinal/Abdominal: Denies: no symptoms, abdomen distended, abdominal pain, black stools, tarry stools, blood in stool, constipated, diarrhea, difficulty swallowing, nausea, poor appetite, poor fluid intake, rectal bleeding , vomiting, other Neurologic/Psychiatric: Denies: no symptoms, anxiety, depressed, emotional problems, headache, numbness, paresthesia, pre-existing deficit, seizure, tingling, tremors, weakness, other Allergies: Coded Allergies: No Known Allergies (Unverified , 06/27/19) Subjective 06/29: icu, s/p egd and plt tx, levo gtt 07/01: remains on vent, ivelisse Montero rn, with c. diff + and on abx, holding off weaning Objective Objective Current Medications Medications (Trade) Dose Ordered Sig/Naseem Route PRN Reason Start Time Stop Time Status Last Admin Dose Admin Ceftriaxone Sodium 1 gm/ Sodium Chloride 55 ml @ 110 mls/hr DAILY IVPB 06/30/19 09:00 07/05/19 08:59 07/01/19 08:51 Chlorhexidine Gluconate (Mer-Hex 2%) 1 applic DAILY@2000 TOPIC 06/28/19 20:00 07/28/19 19:59 06/30/19 20:48 Dextrose (Dextrose 50%) 25 ml Q30M PRN IV Hypoglycemia 06/28/19 05:00 07/28/19 04:59 Dextrose (Dextrose 50%) 50 ml Q30M PRN IV Hypoglycemia 06/28/19 05:00 07/28/19 04:59 Famotidine (Pepcid I.v.) 20 mg Q12HR IVP 07/01/19 21:00 07/31/19 20:59 Insulin Aspart (NovoLOG) BEFORE MEALS AND HS SUBQ 06/28/19 06:30 07/28/19 06:29 07/01/19 11:09 Lactulose 200 gm/ Sterile Water 1,000 ml @ 0 mls/hr ONCE IRRIG 07/01/19 14:35 07/01/19 18:00 Metronidazole 100 ml @ 100 mls/hr Q8HR IVPB 07/01/19 14:00 07/08/19 13:59 Morphine Sulfate (Morphine Sulfate) 2 mg Q4H PRN IVP For Pain 06/28/19 09:15 07/05/19 09:14 06/29/19 02:29 Norepinephrine Bitartrate 4 mg/ Dextrose 250 ml @ 0 mls/hr Q24H IV 06/28/19 10:30 07/28/19 10:29 06/30/19 23:32 Octreotide Acetate 500 mcg/ Sodium Chloride 500 ml @ 25 mls/hr Q20H IV 07/01/19 09:45 07/31/19 09:44 07/01/19 11:06 Ondansetron HCl (Zofran) 4 mg Q6H PRN IVP Nausea & Vomiting 06/28/19 16:30 07/28/19 16:29 06/28/19 22:07 Potassium Chloride 100 ml @ 50 mls/hr Q2H IVPB 07/01/19 12:00 07/01/19 17:59 07/01/19 12:16 Sodium Chloride 1,000 ml @ 75 mls/hr [id number] IV 06/28/19 05:00 07/28/19 04:59 07/01/19 12:16 Last 24 Hour Vital Signs Date Time Temp Pulse Resp B/P (MAP) Pulse Ox O2 Delivery O2 Flow Rate FiO2 07/01/19 11:00 98 18 99/40 (59) 97 07/01/19 10:45 98 17 40 07/01/19 10:30 102 23 108/40 (62) 100 07/01/19 10:00 99 19 103/43 (63) 98 07/01/19 09:30 99 19 98/41 (60) 97 07/01/19 09:00 94 19 111/45 (67) 97 07/01/19 08:31 99 22 40 07/01/19 08:30 97 21 99/31 (53) 97 07/01/19 08:00 96 07/01/19 08:00 Mechanical Ventilator 07/01/19 08:00 40 07/01/19 08:00 98.8 97 19 108/34 (58) 97 07/01/19 07:30 97 19 111/51 (71) 97 07/01/19 07:00 98 20 99/46 (63) 97 07/01/19 06:45 99 18 40 07/01/19 06:30 101 21 106/45 (65) 97 07/01/19 06:00 104 22 115/51 (72) 96 07/01/19 06:00 115/51 07/01/19 05:30 105 17 129/56 (80) 98 07/01/19 05:27 100 20 40 07/01/19 05:00 106 22 123/46 (71) 98 07/01/19 05:00 123/46 07/01/19 04:30 105 23 125/48 (73) 100 07/01/19 04:00 98.7 100 20 110/41 (64) 98 07/01/19 04:00 104 07/01/19 04:00 110/41 07/01/19 04:00 40 07/01/19 04:00 Mechanical Ventilator 07/01/19 03:30 103 24 40 07/01/19 03:30 103 24 129/42 (71) 98 07/01/19 03:00 106 24 142/56 (84) 97 07/01/19 03:00 142/56 07/01/19 02:30 93 18 111/45 (67) 98 07/01/19 02:00 110/40 07/01/19 02:00 94 19 110/40 (63) 98 07/01/19 01:45 97 22 40 07/01/19 01:30 93 19 112/39 (63) 98 07/01/19 01:00 92 17 109/37 (61) 98 07/01/19 01:00 109/37 07/01/19 00:30 93 18 112/42 (65) 97 07/01/19 00:00 97 07/01/19 00:00 Mechanical Ventilator 07/01/19 00:00 40 07/01/19 00:00 120/47 07/01/19 00:00 99.7 97 18 120/47 (71) 97 06/30/19 23:45 101 19 121/43 (69) 96 06/30/19 23:32 103/43 06/30/19 23:30 106 21 135/51 (79) 100 06/30/19 23:23 98 19 40 06/30/19 23:15 97 19 123/48 (73) 98 06/30/19 23:00 92 18 107/42 (63) 98 06/30/19 23:00 107/42 06/30/19 22:30 93 19 103/43 (63) 98 06/30/19 22:00 121/43 06/30/19 22:00 101 18 121/43 (69) 96 06/30/19 21:30 94 18 112/38 (62) 98 06/30/19 21:22 97 17 40 06/30/19 21:00 117/52 06/30/19 21:00 95 20 110/45 (66) 97 06/30/19 20:45 98 19 117/52 (73) 97 06/30/19 20:30 100 23 121/48 (72) 97 06/30/19 20:15 93 19 116/34 (61) 98 06/30/19 20:00 Mechanical Ventilator 06/30/19 20:00 98.7 94 19 113/44 (67) 98 06/30/19 20:00 40 06/30/19 20:00 113/44 06/30/19 20:00 95 06/30/19 19:30 93 18 109/38 (61) 98 06/30/19 19:15 94 18 40 06/30/19 19:00 104 20 105/90 (95) 97 06/30/19 19:00 105/90 06/30/19 18:30 98 21 118/40 (66) 95 06/30/19 18:01 102 23 129/49 (75) 99 06/30/19 18:00 125/49 06/30/19 17:30 97 21 118/43 (68) 98 06/30/19 17:30 95 22 40 06/30/19 17:00 104 23 125/49 (74) 100 06/30/19 17:00 129/45 06/30/19 16:30 94 23 111/41 (64) 98 06/30/19 16:15 95 22 119/41 (67) 98 06/30/19 16:00 Mechanical Ventilator 06/30/19 16:00 99 06/30/19 16:00 111/41 06/30/19 16:00 40 06/30/19 16:00 99.8 06/30/19 16:00 98 22 113/41 (65) 99 06/30/19 15:30 100 24 114/41 (65) 100 06/30/19 15:21 99 22 40 06/30/19 15:00 101 25 115/40 (65) 99 06/30/19 15:00 115/40 06/30/19 14:30 92 22 100/37 (58) 98 06/30/19 14:00 108/39 06/30/19 14:00 97 24 108/39 (62) 98 06/30/19 13:30 95 23 112/39 (63) 97 06/30/19 13:11 97 22 40 06/30/19 13:00 98 24 109/37 (61) 98 06/30/19 13:00 109/37 06/30/19 12:30 95 24 111/40 (63) 99 06/30/19 12:00 110 06/30/19 12:00 Mechanical Ventilator 06/30/19 12:00 123/45 06/30/19 12:00 40 06/30/19 12:00 99.5 100 25 123/45 (71) 99 06/30/19 11:59 99 23 40 06/30/19 11:30 98 22 124/44 (70) 99 06/30/19 11:00 95 22 109/40 (63) 99 06/30/19 11:00 109/40 06/30/19 10:30 98 22 113/39 (63) 99 06/30/19 10:00 108/38 06/30/19 10:00 97 23 105/38 (60) 98 06/30/19 09:30 105 26 127/47 (73) 98 06/30/19 09:11 106 28 40 06/30/19 09:00 116/40 06/30/19 09:00 109 28 136/53 (80) 99 06/30/19 08:30 105 25 123/44 (70) 99 06/30/19 08:00 110 06/30/19 08:00 40 06/30/19 08:00 Mechanical Ventilator 06/30/19 08:00 99.6 105 26 124/43 (70) 99 06/30/19 08:00 125/50 06/30/19 07:30 109 24 132/54 (80) 97 06/30/19 07:12 103 23 40 06/30/19 07:00 108 23 111/45 (67) 97 06/30/19 06:51 129/46 06/30/19 06:30 106 24 117/44 (68) 97 06/30/19 06:00 104 22 122/45 (70) 97 06/30/19 05:30 106 23 122/55 (77) 97 06/30/19 05:00 103 20 40 06/30/19 05:00 102 23 115/48 (70) 97 06/30/19 04:30 104 23 118/51 (73) 97 06/30/19 04:00 40 06/30/19 04:00 105 06/30/19 04:00 98.6 105 23 125/50 (75) 96 06/30/19 04:00 Mechanical Ventilator 06/30/19 03:30 108 24 117/53 (74) 96 06/30/19 03:18 89 18 40 06/30/19 03:00 108 24 123/52 (75) 97 06/30/19 02:30 111 25 131/44 (73) 96 06/30/19 02:00 110 24 130/47 (74) 97 06/30/19 01:34 77 18 40 06/30/19 01:30 111 24 123/52 (75) 97 06/30/19 01:00 111 26 133/40 (71) 97 06/30/19 00:30 110 25 114/46 (68) 97 06/30/19 00:00 40 06/30/19 00:00 Mechanical Ventilator 06/30/19 00:00 110 06/30/19 00:00 98.8 110 25 126/41 (69) 96 06/29/19 23:30 111 23 135/44 (74) 96 06/29/19 23:00 109 22 122/47 (72) 96 06/29/19 22:50 107 20 40 06/29/19 22:30 109 22 127/46 (73) 97 06/29/19 22:00 111 24 129/50 (76) 97 06/29/19 21:30 112 24 134/46 (75) 97 06/29/19 21:20 109 21 40 06/29/19 21:00 112 23 132/45 (74) 97 06/29/19 20:30 111 23 121/53 (75) 97 06/29/19 20:00 98.7 111 25 123/48 (73) 98 06/29/19 20:00 Mechanical Ventilator 06/29/19 20:00 40 06/29/19 20:00 111 06/29/19 19:30 108 22 124/47 (72) 97 06/29/19 19:25 112 18 97 Mechanical Ventilator 30 06/29/19 19:25 111 22 40 06/29/19 19:00 110 22 127/37 (67) 97 06/29/19 19:00 123/40 06/29/19 18:00 129/41 06/29/19 18:00 108 22 129/41 (70) 97 06/29/19 17:30 110 23 118/53 (74) 96 06/29/19 17:03 111 21 40 06/29/19 17:00 127/46 06/29/19 17:00 109 22 127/46 (73) 96 06/29/19 16:00 98.4 109 20 122/45 (70) 96 06/29/19 16:00 122/45 06/29/19 16:00 Mechanical Ventilator 06/29/19 16:00 35 06/29/19 16:00 111 06/29/19 15:30 109 19 118/52 (74) 96 06/29/19 15:00 110 19 118/50 (72) 96 06/29/19 15:00 118/50 06/29/19 14:30 109 20 40 06/29/19 14:30 113 23 137/56 (83) 97 06/29/19 14:00 124/57 06/29/19 14:00 113 20 124/57 (79) 98 06/29/19 13:30 114 19 136/41 (72) 97 06/29/19 13:13 86 20 96 06/29/19 13:10 104/56 06/29/19 13:00 141/63 06/29/19 13:00 98.4 112 17 141/63 (89) 97 06/29/19 12:53 102 20 96 06/29/19 12:30 102 16 84/52 (63) 93 06/29/19 12:30 102 16 40 Intake and Output 06/30/19 07/01/19 19:00 07:00 Intake Total 1897 ml 1635.0 ml Output Total 520 ml 550 ml Balance 1377 ml 1085.0 ml Intake Oral 0 ml IV Total 1897 ml 1635.0 ml Output Urine Total 520 ml 550 ml # Bowel Movements 4 2 Labs Test 06/28/19 14:40 06/28/19 20:20 06/29/19 03:30 06/29/19 10:55 Lactic Acid Level 3.80 mmol/L (0.4-2.0) 5.30 mmol/L (0.4-2.0) 6.70 mmol/L (0.4-2.0) Troponin I 0.165 ng/mL (0.000-0.056) 0.097 ng/mL (0.000-0.056) Carcinoembryonic Antigen 1.9 ng/mL (0.0-4.7) HIV (1&2) Antibody Rapid Negative (NEGATIVE) White Blood Count 19.3 K/UL (4.8-10.8) Red Blood Count 2.85 M/UL (4.20-5.40) Hemoglobin 8.8 G/DL (12.0-16.0) Hematocrit 25.8 % (37.0-47.0) Mean Corpuscular Volume 90 FL (80-99) Mean Corpuscular Hemoglobin 31.0 PG (27.0-31.0) Mean Corpuscular Hemoglobin Concent 34.3 G/DL (32.0-36.0) Red Cell Distribution Width 14.9 % (11.6-14.8) Platelet Count 48 K/UL (150-450) Mean Platelet Volume 10.1 FL (6.5-10.1) Neutrophils (%) (Auto) % (45.0-75.0) Lymphocytes (%) (Auto) % (20.0-45.0) Monocytes (%) (Auto) % (1.0-10.0) Eosinophils (%) (Auto) % (0.0-3.0) Basophils (%) (Auto) % (0.0-2.0) Differential Total Cells Counted 100 Neutrophils % (Manual) 89 % (45-75) Lymphocytes % (Manual) 6 % (20-45) Monocytes % (Manual) 5 % (1-10) Eosinophils % (Manual) 0 % (0-3) Basophils % (Manual) 0 % (0-2) Band Neutrophils 0 % (0-8) Platelet Estimate Decreased Platelet Morphology Normal Anisocytosis 1+ Reticulocyte Count 3.0 % (0.5-2.0) Prothrombin Time 14.3 SEC (9.30-11.50) Prothromb Time International Ratio 1.4 (0.9-1.1) Activated Partial Thromboplast Time 37 SEC (23-33) Sodium Level 144 MMOL/L (136-145) Potassium Level 4.4 MMOL/L (3.5-5.1) Chloride Level 116 MMOL/L (98-107) Carbon Dioxide Level 17 MMOL/L (21-32) Anion Gap 11 mmol/L (5-15) Blood Urea Nitrogen 50 mg/dL (7-18) Creatinine 1.0 MG/DL (0.55-1.30) Estimat Glomerular Filtration Rate 55.1 mL/min (>60) Glucose Level 233 MG/DL (74-106) Calcium Level 6.8 MG/DL (8.5-10.1) Iron Level 34 ug/dL (50-175) Total Iron Binding Capacity 188 ug/dL (250-450) Percent Iron Saturation 18 % (15-50) Unsaturated Iron Binding 154 ug/dL (112-346) Ferritin 92 NG/ML (8-388) Total Bilirubin 1.8 MG/DL (0.2-1.0) Direct Bilirubin 0.4 MG/DL (0.0-0.3) Aspartate Amino Transf (AST/SGOT) 1421 U/L (15-37) Alanine Aminotransferase (ALT/SGPT) 726 U/L (12-78) Alkaline Phosphatase 140 U/L (46-116) Total Protein 4.0 G/DL (6.4-8.2) Albumin 1.7 G/DL (3.4-5.0) Globulin 2.3 g/dL Albumin/Globulin Ratio 0.7 (1.0-2.7) Vitamin B12 Level 1751 PG/ML (193-986) Folate 15.6 NG/ML (8.6-58.9) Thyroid Stimulating Hormone (TSH) 0.549 uiU/mL (0.358-3.740) Free Thyroxine 0.71 NG/DL (0.76-1.46) Hepatitis A IgM Antibody Negative (Negative) Hepatitis B Surface Antigen Negative (Negative) Hepatitis B Core IgM Antibody Negative (Negative) Hepatitis C Antibody <0.1 s/co ratio Arterial Blood pH 7.412 (7.350-7.450) Arterial Blood Partial Pressure CO2 24.1 mmHg (35.0-45.0) Arterial Blood Partial Pressure O2 72.5 mmHg (75.0-100.0) Arterial Blood HCO3 15.0 mmol/L (22.0-26.0) Arterial Blood Oxygen Saturation 93.1 % (95-100) Arterial Blood Base Excess -8.3 (-2-2) James Test Positive Test 06/29/19 11:40 06/29/19 15:30 06/29/19 15:44 06/30/19 04:00 Lactic Acid Level 4.40 mmol/L (0.4-2.0) 3.20 mmol/L (0.66-2.22) 2.50 mmol/L (0.4-2.0) Urine Color Yellow Urine Appearance Clear Urine pH 6 (4.5-8.0) Urine Specific [place] 1.015 (1.005-1.035) Urine Protein Negative (NEGATIVE) Urine Glucose (UA) 2+ (NEGATIVE) Urine Ketones 1+ (NEGATIVE) Urine Blood Negative (NEGATIVE) Urine Nitrite Negative (NEGATIVE) Urine Bilirubin Negative (NEGATIVE) Urine Urobilinogen Normal MG/DL (0.0-1.0) Urine Leukocyte Esterase Negative (NEGATIVE) Test 06/30/19 04:30 06/30/19 08:15 06/30/19 11:30 06/30/19 12:00 White Blood Count 19.0 K/UL (4.8-10.8) Red Blood Count 2.59 M/UL (4.20-5.40) Hemoglobin 8.2 G/DL (12.0-16.0) Hematocrit 23.4 % (37.0-47.0) Mean Corpuscular Volume 90 FL (80-99) Mean Corpuscular Hemoglobin 31.6 PG (27.0-31.0) Mean Corpuscular Hemoglobin Concent 34.9 G/DL (32.0-36.0) Red Cell Distribution Width 16.8 % (11.6-14.8) Platelet Count 95 K/UL (150-450) Mean Platelet Volume 8.3 FL (6.5-10.1) Neutrophils (%) (Auto) % (45.0-75.0) Lymphocytes (%) (Auto) % (20.0-45.0) Monocytes (%) (Auto) % (1.0-10.0) Eosinophils (%) (Auto) % (0.0-3.0) Basophils (%) (Auto) % (0.0-2.0) Differential Total Cells Counted 100 Neutrophils % (Manual) 89 % (45-75) Lymphocytes % (Manual) 3 % (20-45) Monocytes % (Manual) 8 % (1-10) Eosinophils % (Manual) 0 % (0-3) Basophils % (Manual) 0 % (0-2) Band Neutrophils 0 % (0-8) Platelet Estimate Decreased Platelet Morphology Normal Polychromasia 2+ Sodium Level 143 MMOL/L (136-145) Potassium Level 4.1 MMOL/L (3.5-5.1) Chloride Level 115 MMOL/L (98-107) Carbon Dioxide Level 20 MMOL/L (21-32) Anion Gap 9 mmol/L (5-15) Blood Urea Nitrogen 47 mg/dL (7-18) Creatinine 0.8 MG/DL (0.55-1.30) Estimat Glomerular Filtration Rate > 60 mL/min (>60) Glucose Level 184 MG/DL (74-106) Calcium Level 7.1 MG/DL (8.5-10.1) Total Bilirubin 2.3 MG/DL (0.2-1.0) Direct Bilirubin 0.5 MG/DL (0.0-0.3) Aspartate Amino Transf (AST/SGOT) 1202 U/L (15-37) Alanine Aminotransferase (ALT/SGPT) 903 U/L (12-78) Alkaline Phosphatase 150 U/L (46-116) Total Protein 4.3 G/DL (6.4-8.2) Albumin 1.7 G/DL (3.4-5.0) Globulin 2.6 g/dL Albumin/Globulin Ratio 0.7 (1.0-2.7) Lactic Acid Level 2.40 mmol/L (0.66-2.22) Total Creatine Kinase 123 U/L (26-308) Acetaminophen Level 3 MCG/ML (10-30) Test 06/30/19 14:10 07/01/19 06:10 Lactic Acid Level 1.80 mmol/L (0.4-2.0) 1.90 mmol/L (0.4-2.0) White Blood Count 6.9 K/UL (4.8-10.8) Red Blood Count 2.63 M/UL (4.20-5.40) Hemoglobin 8.2 G/DL (12.0-16.0) Hematocrit 24.0 % (37.0-47.0) Mean Corpuscular Volume 91 FL (80-99) Mean Corpuscular Hemoglobin 31.3 PG (27.0-31.0) Mean Corpuscular Hemoglobin Concent 34.3 G/DL (32.0-36.0) Red Cell Distribution Width 17.0 % (11.6-14.8) Platelet Count 61 K/UL (150-450) Mean Platelet Volume 8.5 FL (6.5-10.1) Neutrophils (%) (Auto) % (45.0-75.0) Lymphocytes (%) (Auto) % (20.0-45.0) Monocytes (%) (Auto) % (1.0-10.0) Eosinophils (%) (Auto) % (0.0-3.0) Basophils (%) (Auto) % (0.0-2.0) Differential Total Cells Counted 100 Neutrophils % (Manual) 85 % (45-75) Lymphocytes % (Manual) 7 % (20-45) Monocytes % (Manual) 8 % (1-10) Eosinophils % (Manual) 0 % (0-3) Basophils % (Manual) 0 % (0-2) Band Neutrophils 0 % (0-8) Platelet Estimate Decreased Platelet Morphology Normal Polychromasia 2+ Hypochromasia 1+ Anisocytosis 1+ Sodium Level 143 MMOL/L (136-145) Potassium Level 3.4 MMOL/L (3.5-5.1) Chloride Level 115 MMOL/L (98-107) Carbon Dioxide Level 19 MMOL/L (21-32) Anion Gap 9 mmol/L (5-15) Blood Urea Nitrogen 33 mg/dL (7-18) Creatinine 0.8 MG/DL (0.55-1.30) Estimat Glomerular Filtration Rate > 60 mL/min (>60) Glucose Level 183 MG/DL (74-106) Calcium Level 7.0 MG/DL (8.5-10.1) Total Bilirubin 3.0 MG/DL (0.2-1.0) Direct Bilirubin 0.8 MG/DL (0.0-0.3) Aspartate Amino Transf (AST/SGOT) 485 U/L (15-37) Alanine Aminotransferase (ALT/SGPT) 695 U/L (12-78) Alkaline Phosphatase 148 U/L (46-116) Ammonia 55 umol/L (11-32) Total Protein 4.4 G/DL (6.4-8.2) Albumin 1.6 G/DL (3.4-5.0) Globulin 2.8 g/dL Albumin/Globulin Ratio 0.6 (1.0-2.7) Micro Microbiology Date/Time Source Procedure Growth Status 06/30/19 18:00 Sputum Induced Gram Stain - Final Resulted 06/30/19 18:00 Sputum Induced Sputum Culture Pending Resulted 06/30/19 14:50 Stool Clostridium difficile Toxin Assay - Final Complete Height (Feet): 5 Height (Inches): 2.00 Weight (Pounds): 140 Objective Physical Exam: Vitals: reviewed General Appearance: NAD HEENT: normocephalic, atraumatic ++VENT Respiratory/Chest: normal breath sounds bilaterally Cardiovascular/Chest: normal peripheral pulses, normal rate Abdomen: normal bowel sounds, soft, nontender Extremities: normal range of motion Anthony Chaudhary MD Jul 01, 2019 12:26
--- NOTE | 2019-07-01 13:01 | NUR ---
HAND-OFF: Report given to ROMAIN Eaton.
--- NOTE | 2019-07-01 13:11 | Cardiology Report ---
APPROVED REPORT EKG Measurement Heart [id number] Normal sinus rhythm Cannot rule out Anterior infarct, age undetermined Abnormal ECG
--- NOTE | 2019-07-01 13:20 | General Progress Note ---
Assessment/Plan Status: stable Assessment/Plan: 69-year-old female with past medical history of liver cirrhosis without known etiology presents for hematemesis #Hypovolemic shock secondary to hematemesis- resolved off pressors -ivf's -s/p PRBC, platelet transfusion -GI consult, appreciate recs: EGD 06/29/2019, esophageal varices x7 banding. Blood in abdomen. A limited however no active bleeding noted -Hemoglobin stable, continue to monitor -Surgery consult, appreciate recs -Trend lactate -s/p levofed -Cardiology consult, appreciate recs -Echo: ef wnl -Trend troponins: reviewed #Intubation for airway protection and now with encephalopathy -Pulmonology consult, appreciate recs -After EGD if bleeding is controlled, wean to extubation, suspect needs improvement in mental status prior to weaning trials, treat as above -RT -Vent settings: FiO2 40% #Worsening leukocytosis, continue to monitor -Check UA: Negative -Check blood cultures, not yet resulted -Follow-up chest x-ray: No infiltrate -Check C. difficile: positive; but hgb doawntrended 19->6.9 without treatment and no diarrhea. started on flagyl 07/01 -Can consider SBP however patient on Rocephin #Urinary retention -Straight cath with 500 cc -Continue Rouse -Monitor ins and outs -UA negative #Liver cirrhosis with esophageal varices -Status post EGD as above -Ascites present, continue Rocephin -Protonix 40 mg IV twice daily -Octreotide drip, for 72 hours after pending -Monitor CBC and BMP -Patient denies alcohol use, family states reason for liver cirrhosis is unknown. Differentials include Saunders versus autoimmune causes -Autoimmune work-up, can be deferred -Hepatitis panel pending -Follow-up work-up pending -Right upper quadrant ultrasound: Reviewed -Continue lactulose -CEA normal #Hepatic encephalopathy -Continue lactulose as per above #Elevated troponin, likely secondary to demand ischemia -Cardiology consulted, appreciate recs -Echo: Within normal limits -Troponins downtrending, and stop checking further troponins #Lactic acidosis, improving -Secondary to #1 -Continue to monitor for other possible causes The time of my note may not reflect the time of my patient encounter. 45 minutes of critical time spent. This includes interpretation of charting, vitals, labs, imaging, exam. Subjective Allergies: Coded Allergies: No Known Allergies (Unverified , 06/27/19) Subjective Patient nonverbal cannot obtain ROS, secondary to intubation and medical condition. Status post EGD times banding 7. Patient's slightly improved, winces to painful stimuli which is same as yesterday. Patient was not given lactulose, instructed rn to give per rectum. updated family with lab results, medical condition and plan of care Objective Last 24 Hour Vital Signs Date Time Temp Pulse Resp B/P (MAP) Pulse Ox O2 Delivery O2 Flow Rate FiO2 07/01/19 12:00 40 07/01/19 12:00 Mechanical Ventilator 07/01/19 12:00 98.9 111 19 99/45 (63) 95 07/01/19 11:00 98 18 99/40 (59) 97 07/01/19 10:45 98 17 40 07/01/19 10:30 102 23 108/40 (62) 100 07/01/19 10:00 99 19 103/43 (63) 98 07/01/19 09:30 99 19 98/41 (60) 97 07/01/19 09:00 94 19 111/45 (67) 97 07/01/19 08:31 99 22 40 07/01/19 08:30 97 21 99/31 (53) 97 07/01/19 08:00 96 07/01/19 08:00 Mechanical Ventilator 07/01/19 08:00 40 07/01/19 08:00 98.8 97 19 108/34 (58) 97 07/01/19 07:30 97 19 111/51 (71) 97 07/01/19 07:00 98 20 99/46 (63) 97 07/01/19 06:45 99 18 40 07/01/19 06:30 101 21 106/45 (65) 97 07/01/19 06:00 104 22 115/51 (72) 96 07/01/19 06:00 115/51 07/01/19 05:30 105 17 129/56 (80) 98 07/01/19 05:27 100 20 40 07/01/19 05:00 106 22 123/46 (71) 98 07/01/19 05:00 123/46 07/01/19 04:30 105 23 125/48 (73) 100 07/01/19 04:00 98.7 100 20 110/41 (64) 98 07/01/19 04:00 104 07/01/19 04:00 110/41 07/01/19 04:00 40 07/01/19 04:00 Mechanical Ventilator 07/01/19 03:30 103 24 40 07/01/19 03:30 103 24 129/42 (71) 98 07/01/19 03:00 106 24 142/56 (84) 97 07/01/19 03:00 142/56 07/01/19 02:30 93 18 111/45 (67) 98 07/01/19 02:00 110/40 07/01/19 02:00 94 19 110/40 (63) 98 07/01/19 01:45 97 22 40 07/01/19 01:30 93 19 112/39 (63) 98 07/01/19 01:00 92 17 109/37 (61) 98 07/01/19 01:00 109/37 07/01/19 00:30 93 18 112/42 (65) 97 07/01/19 00:00 97 07/01/19 00:00 Mechanical Ventilator 07/01/19 00:00 40 07/01/19 00:00 120/47 07/01/19 00:00 99.7 97 18 120/47 (71) 97 06/30/19 23:45 101 19 121/43 (69) 96 06/30/19 23:32 103/43 06/30/19 23:30 106 21 135/51 (79) 100 06/30/19 23:23 98 19 40 06/30/19 23:15 97 19 123/48 (73) 98 06/30/19 23:00 92 18 107/42 (63) 98 06/30/19 23:00 107/42 06/30/19 22:30 93 19 103/43 (63) 98 06/30/19 22:00 121/43 06/30/19 22:00 101 18 121/43 (69) 96 06/30/19 21:30 94 18 112/38 (62) 98 06/30/19 21:22 97 17 40 06/30/19 21:00 117/52 06/30/19 21:00 95 20 110/45 (66) 97 06/30/19 20:45 98 19 117/52 (73) 97 06/30/19 20:30 100 23 121/48 (72) 97 06/30/19 20:15 93 19 116/34 (61) 98 06/30/19 20:00 Mechanical Ventilator 06/30/19 20:00 98.7 94 19 113/44 (67) 98 06/30/19 20:00 40 06/30/19 20:00 113/44 06/30/19 20:00 95 06/30/19 19:30 93 18 109/38 (61) 98 06/30/19 19:15 94 18 40 06/30/19 19:00 104 20 105/90 (95) 97 06/30/19 19:00 105/90 06/30/19 18:30 98 21 118/40 (66) 95 06/30/19 18:01 102 23 129/49 (75) 99 06/30/19 18:00 125/49 06/30/19 17:30 97 21 118/43 (68) 98 06/30/19 17:30 95 22 40 06/30/19 17:00 104 23 125/49 (74) 100 06/30/19 17:00 129/45 06/30/19 16:30 94 23 111/41 (64) 98 06/30/19 16:15 95 22 119/41 (67) 98 06/30/19 16:00 Mechanical Ventilator 06/30/19 16:00 99 06/30/19 16:00 111/41 06/30/19 16:00 40 06/30/19 16:00 99.8 06/30/19 16:00 98 22 113/41 (65) 99 06/30/19 15:30 100 24 114/41 (65) 100 06/30/19 15:21 99 22 40 06/30/19 15:00 101 25 115/40 (65) 99 06/30/19 15:00 115/40 06/30/19 14:30 92 22 100/37 (58) 98 06/30/19 14:00 108/39 06/30/19 14:00 97 24 108/39 (62) 98 06/30/19 13:30 95 23 112/39 (63) 97 Intake and Output 06/30/19 07/01/19 19:00 07:00 Intake Total 1897 ml 1635.0 ml Output Total 520 ml 550 ml Balance 1377 ml 1085.0 ml Intake Oral 0 ml IV Total 1897 ml 1635.0 ml Output Urine Total 520 ml 550 ml # Bowel Movements 4 2 Laboratory Tests 06/30/19 14:10: Lactic Acid Level 1.80 07/01/19 06:10: Lactic Acid Level 1.90, White Blood Count 6.9#, Red Blood Count 2.63L, Hemoglobin 8.2L, Hematocrit 24.0L, Mean Corpuscular Volume 91, Mean Corpuscular Hemoglobin 31.3H, Mean Corpuscular Hemoglobin Concent 34.3, Red Cell Distribution Width 17.0H, Platelet Count 61L, Mean Platelet Volume 8.5, Neutrophils (%) (Auto) , Lymphocytes (%) (Auto) , Monocytes (%) (Auto) , Eosinophils (%) (Auto) , Basophils (%) (Auto) , Differential Total Cells Counted 100, Neutrophils % (Manual) 85H, Lymphocytes % (Manual) 7L, Monocytes % (Manual) 8, Eosinophils % (Manual) 0, Basophils % (Manual) 0, Band Neutrophils 0 , Platelet Estimate DecreasedL, Platelet Morphology Normal, Polychromasia 2+, Hypochromasia 1+, Anisocytosis 1+, Sodium Level 143, Potassium Level 3.4L, Chloride Level 115H, Carbon Dioxide Level 19L, Anion Gap 9, Blood Urea Nitrogen 33H, Creatinine 0.8, Estimat Glomerular Filtration Rate > 60, Glucose Level 183H , Calcium Level 7.0L, Total Bilirubin 3.0H, Direct Bilirubin 0.8H, Aspartate Amino Transf (AST/SGOT) 485H, Alanine Aminotransferase (ALT/SGPT) 695H, Alkaline Phosphatase 148H, Ammonia 55H, Total Protein 4.4L, Albumin 1.6L, Globulin 2.8, Albumin/Globulin Ratio 0.6L, Anti-Nuclear Antibody Screen [Pending ], Anti-Mitochondrial Antibody [Pending] Height (Feet): 5 Height (Inches): 2.00 Weight (Pounds): 140 Objective GENERAL: Intubated, winces to painful stimuli HEENT: NCAT, icteric eyes, pupils PERRLA Neck: No cervical lymphadenopathy, trachea midline CV: tachy, no murmurs rubs or gallops RESP: No changes ABD: soft, non-distended, no TTP, ascites present EXT: Normal muscle tone, +5/5 muscle strength NEURO: As above, no tremors, normal muscle tone Aileen Hsieh DO Jul 01, 2019 13:20
--- NOTE | 2019-07-01 14:11 | Surgery Progress Note ---
Surgery Progress Note Subjective Additional Comments labs noted unchanged prognosis guarded Objective Last 24 Hour Vital Signs Date Time Temp Pulse Resp B/P (MAP) Pulse Ox O2 Delivery O2 Flow Rate FiO2 07/01/19 12:00 40 07/01/19 12:00 Mechanical Ventilator 07/01/19 12:00 98.9 111 19 99/45 (63) 95 07/01/19 11:00 98 18 99/40 (59) 97 07/01/19 10:45 98 17 40 07/01/19 10:30 102 23 108/40 (62) 100 07/01/19 10:00 99 19 103/43 (63) 98 07/01/19 09:30 99 19 98/41 (60) 97 07/01/19 09:00 94 19 111/45 (67) 97 07/01/19 08:31 99 22 40 07/01/19 08:30 97 21 99/31 (53) 97 07/01/19 08:00 96 07/01/19 08:00 Mechanical Ventilator 07/01/19 08:00 40 07/01/19 08:00 98.8 97 19 108/34 (58) 97 07/01/19 07:30 97 19 111/51 (71) 97 07/01/19 07:00 98 20 99/46 (63) 97 07/01/19 06:45 99 18 40 07/01/19 06:30 101 21 106/45 (65) 97 07/01/19 06:00 104 22 115/51 (72) 96 07/01/19 06:00 115/51 07/01/19 05:30 105 17 129/56 (80) 98 07/01/19 05:27 100 20 40 07/01/19 05:00 106 22 123/46 (71) 98 07/01/19 05:00 123/46 07/01/19 04:30 105 23 125/48 (73) 100 07/01/19 04:00 98.7 100 20 110/41 (64) 98 07/01/19 04:00 104 07/01/19 04:00 110/41 07/01/19 04:00 40 07/01/19 04:00 Mechanical Ventilator 07/01/19 03:30 103 24 40 07/01/19 03:30 103 24 129/42 (71) 98 07/01/19 03:00 106 24 142/56 (84) 97 07/01/19 03:00 142/56 07/01/19 02:30 93 18 111/45 (67) 98 07/01/19 02:00 110/40 07/01/19 02:00 94 19 110/40 (63) 98 07/01/19 01:45 97 22 40 07/01/19 01:30 93 19 112/39 (63) 98 07/01/19 01:00 92 17 109/37 (61) 98 07/01/19 01:00 109/37 07/01/19 00:30 93 18 112/42 (65) 97 07/01/19 00:00 97 07/01/19 00:00 Mechanical Ventilator 07/01/19 00:00 40 07/01/19 00:00 120/47 07/01/19 00:00 99.7 97 18 120/47 (71) 97 06/30/19 23:45 101 19 121/43 (69) 96 06/30/19 23:32 103/43 06/30/19 23:30 106 21 135/51 (79) 100 06/30/19 23:23 98 19 40 06/30/19 23:15 97 19 123/48 (73) 98 06/30/19 23:00 92 18 107/42 (63) 98 06/30/19 23:00 107/42 06/30/19 22:30 93 19 103/43 (63) 98 06/30/19 22:00 121/43 06/30/19 22:00 101 18 121/43 (69) 96 06/30/19 21:30 94 18 112/38 (62) 98 06/30/19 21:22 97 17 40 06/30/19 21:00 117/52 06/30/19 21:00 95 20 110/45 (66) 97 06/30/19 20:45 98 19 117/52 (73) 97 06/30/19 20:30 100 23 121/48 (72) 97 06/30/19 20:15 93 19 116/34 (61) 98 06/30/19 20:00 Mechanical Ventilator 06/30/19 20:00 98.7 94 19 113/44 (67) 98 06/30/19 20:00 40 8/24/19 20:00 113/44 06/30/19 20:00 95 06/30/19 19:30 93 18 109/38 (61) 98 06/30/19 19:15 94 18 40 06/30/19 19:00 104 20 105/90 (95) 97 06/30/19 19:00 105/90 06/30/19 18:30 98 21 118/40 (66) 95 06/30/19 18:01 102 23 129/49 (75) 99 06/30/19 18:00 125/49 06/30/19 17:30 97 21 118/43 (68) 98 06/30/19 17:30 95 22 40 06/30/19 17:00 104 23 125/49 (74) 100 06/30/19 17:00 129/45 06/30/19 16:30 94 23 111/41 (64) 98 06/30/19 16:15 95 22 119/41 (67) 98 06/30/19 16:00 Mechanical Ventilator 06/30/19 16:00 99 06/30/19 16:00 111/41 06/30/19 16:00 40 06/30/19 16:00 99.8 06/30/19 16:00 98 22 113/41 (65) 99 06/30/19 15:30 100 24 114/41 (65) 100 06/30/19 15:21 99 22 40 06/30/19 15:00 101 25 115/40 (65) 99 06/30/19 15:00 115/40 06/30/19 14:30 92 22 100/37 (58) 98 I&O Intake and Output 06/30/19 07/01/19 19:00 07:00 Intake Total 1897 ml 1635.0 ml Output Total 520 ml 550 ml Balance 1377 ml 1085.0 ml Intake Oral 0 ml IV Total 1897 ml 1635.0 ml Output Urine Total 520 ml 550 ml # Bowel Movements 4 2 Cardiovascular: RSR Respiratory: decreased breath sounds Abdomen: soft, other Extremities: no cyanosis Laboratory Tests Test 07/01/19 06:10 White Blood Count 6.9 K/UL (4.8-10.8) # Red Blood Count 2.63 M/UL (4.20-5.40) L Hemoglobin 8.2 G/DL (12.0-16.0) L Hematocrit 24.0 % (37.0-47.0) L Mean Corpuscular Volume 91 FL (80-99) Mean Corpuscular Hemoglobin 31.3 PG (27.0-31.0) H Mean Corpuscular Hemoglobin Concent 34.3 G/DL (32.0-36.0) Red Cell Distribution Width 17.0 % (11.6-14.8) H Platelet Count 61 K/UL (150-450) L Mean Platelet Volume 8.5 FL (6.5-10.1) Neutrophils (%) (Auto) % (45.0-75.0) Lymphocytes (%) (Auto) % (20.0-45.0) Monocytes (%) (Auto) % (1.0-10.0) Eosinophils (%) (Auto) % (0.0-3.0) Basophils (%) (Auto) % (0.0-2.0) Differential Total Cells Counted 100 Neutrophils % (Manual) 85 % (45-75) H Lymphocytes % (Manual) 7 % (20-45) L Monocytes % (Manual) 8 % (1-10) Eosinophils % (Manual) 0 % (0-3) Basophils % (Manual) 0 % (0-2) Band Neutrophils 0 % (0-8) Platelet Estimate Decreased L Platelet Morphology Normal Polychromasia 2+ Hypochromasia 1+ Anisocytosis 1+ Sodium Level 143 MMOL/L (136-145) Potassium Level 3.4 MMOL/L (3.5-5.1) L Chloride Level 115 MMOL/L (98-107) H Carbon Dioxide Level 19 MMOL/L (21-32) L Anion Gap 9 mmol/L (5-15) Blood Urea Nitrogen 33 mg/dL (7-18) H Creatinine 0.8 MG/DL (0.55-1.30) Estimat Glomerular Filtration Rate > 60 mL/min (>60) Glucose Level 183 MG/DL (74-106) H Lactic Acid Level 1.90 mmol/L (0.4-2.0) Calcium Level 7.0 MG/DL (8.5-10.1) L Total Bilirubin 3.0 MG/DL (0.2-1.0) H Direct Bilirubin 0.8 MG/DL (0.0-0.3) H Aspartate Amino Transf (AST/SGOT) 485 U/L (15-37) H Alanine Aminotransferase (ALT/SGPT) 695 U/L (12-78) H Alkaline Phosphatase 148 U/L (46-116) H Ammonia 55 umol/L (11-32) H Total Protein 4.4 G/DL (6.4-8.2) L Albumin 1.6 G/DL (3.4-5.0) L Globulin 2.8 g/dL Albumin/Globulin Ratio 0.6 (1.0-2.7) L Anti-Nuclear Antibody Screen Pending Anti-Mitochondrial Antibody Pending Plan Problems: (1) Cirrhosis (2) Varices, esophageal (3) GI bleed Assessment & Plan: 69F with acute GI bleed. etiology likely prior varices anemia on admission and transfused currently in ICU intubated on support GI plan for EGD soon after eval for cardiac npo iv fluids ppi and oct gtt will follow with recs thank you (4) Acute GI bleeding Zaid Wong Jul 01, 2019 14:11
[2019-07-01] MEDS ORDERED: Lactulose 200 GM in Water Sterile For Irrig 1000ml 700 ML IRRIG SCH (14:35)
[2019-07-01] MEDS: Lactulose 200 GM in Water Sterile For Irrig 1000ml 700 ML IRRIG SCH ×2 (15:42→16:12)
--- NOTE | 2019-07-01 15:45 | General Progress Note ---
Assessment/Plan Status: stable Assessment/Plan: Assessment - Cirrhosis - UGIB due to esophageal varicies - C Diff, on IV flagyl (no oral access for PO vanco at this time) - Resp failure - anemia - lactic acidosis - leukocytosis - guarded Recommendations - No NGT - serial CBC - transfuse PRN to keep Hg > 7 - keep NPO - change H2B to PPI - Reduce Sandostatin gtt to 25/hr and likely dc tomorrow - IV abx Subjective Allergies: Coded Allergies: No Known Allergies (Unverified , 06/27/19) Subjective above noted d/w RN C DIff (+) on flagyl IV d/w family at bedside Objective Last 24 Hour Vital Signs Date Time Temp Pulse Resp B/P (MAP) Pulse Ox O2 Delivery O2 Flow Rate FiO2 07/01/19 15:00 108 18 107/56 (73) 99 07/01/19 15:00 108 18 40 07/01/19 14:00 96 17 106/50 (68) 100 07/01/19 13:00 102 19 89/66 (74) 99 07/01/19 12:45 95 18 40 07/01/19 12:00 40 07/01/19 12:00 Mechanical Ventilator 07/01/19 12:00 98.9 111 19 99/45 (63) 95 07/01/19 11:00 98 18 99/40 (59) 97 07/01/19 10:45 98 17 40 07/01/19 10:30 102 23 108/40 (62) 100 07/01/19 10:00 99 19 103/43 (63) 98 07/01/19 09:30 99 19 98/41 (60) 97 07/01/19 09:00 94 19 111/45 (67) 97 07/01/19 08:31 99 22 40 07/01/19 08:30 97 21 99/31 (53) 97 07/01/19 08:00 96 07/01/19 08:00 Mechanical Ventilator 07/01/19 08:00 40 07/01/19 08:00 98.8 97 19 108/34 (58) 97 07/01/19 07:30 97 19 111/51 (71) 97 07/01/19 07:00 98 20 99/46 (63) 97 07/01/19 06:45 99 18 40 07/01/19 06:30 101 21 106/45 (65) 97 07/01/19 06:00 104 22 115/51 (72) 96 07/01/19 06:00 115/51 07/01/19 05:30 105 17 129/56 (80) 98 07/01/19 05:27 100 20 40 07/01/19 05:00 106 22 123/46 (71) 98 07/01/19 05:00 123/46 07/01/19 04:30 105 23 125/48 (73) 100 07/01/19 04:00 98.7 100 20 110/41 (64) 98 07/01/19 04:00 104 07/01/19 04:00 110/41 07/01/19 04:00 40 07/01/19 04:00 Mechanical Ventilator 07/01/19 03:30 103 24 40 07/01/19 03:30 103 24 129/42 (71) 98 07/01/19 03:00 106 24 142/56 (84) 97 07/01/19 03:00 142/56 07/01/19 02:30 93 18 111/45 (67) 98 07/01/19 02:00 110/40 07/01/19 02:00 94 19 110/40 (63) 98 07/01/19 01:45 97 22 40 07/01/19 01:30 93 19 112/39 (63) 98 07/01/19 01:00 92 17 109/37 (61) 98 07/01/19 01:00 109/37 07/01/19 00:30 93 18 112/42 (65) 97 07/01/19 00:00 97 07/01/19 00:00 Mechanical Ventilator 07/01/19 00:00 40 07/01/19 00:00 120/47 07/01/19 00:00 99.7 97 18 120/47 (71) 97 06/30/19 23:45 101 19 121/43 (69) 96 06/30/19 23:32 103/43 06/30/19 23:30 106 21 135/51 (79) 100 06/30/19 23:23 98 19 40 06/30/19 23:15 97 19 123/48 (73) 98 06/30/19 23:00 92 18 107/42 (63) 98 06/30/19 23:00 107/42 8/24/19 22:30 93 19 103/43 (63) 98 06/30/19 22:00 121/43 06/30/19 22:00 101 18 121/43 (69) 96 06/30/19 21:30 94 18 112/38 (62) 98 06/30/19 21:22 97 17 40 06/30/19 21:00 117/52 06/30/19 21:00 95 20 110/45 (66) 97 06/30/19 20:45 98 19 117/52 (73) 97 06/30/19 20:30 100 23 121/48 (72) 97 06/30/19 20:15 93 19 116/34 (61) 98 06/30/19 20:00 Mechanical Ventilator 06/30/19 20:00 98.7 94 19 113/44 (67) 98 06/30/19 20:00 40 06/30/19 20:00 113/44 06/30/19 20:00 95 06/30/19 19:30 93 18 109/38 (61) 98 06/30/19 19:15 94 18 40 06/30/19 19:00 104 20 105/90 (95) 97 06/30/19 19:00 105/90 06/30/19 18:30 98 21 118/40 (66) 95 06/30/19 18:01 102 23 129/49 (75) 99 06/30/19 18:00 125/49 06/30/19 17:30 97 21 118/43 (68) 98 06/30/19 17:30 95 22 40 06/30/19 17:00 104 23 125/49 (74) 100 06/30/19 17:00 129/45 06/30/19 16:30 94 23 111/41 (64) 98 06/30/19 16:15 95 22 119/41 (67) 98 06/30/19 16:00 Mechanical Ventilator 06/30/19 16:00 99 06/30/19 16:00 111/41 06/30/19 16:00 40 06/30/19 16:00 99.8 06/30/19 16:00 98 22 113/41 (65) 99 Intake and Output 06/30/19 07/01/19 18:59 06:59 Intake Total 1927 ml 1645.0 ml Output Total 510 ml 560 ml Balance 1417 ml 1085.0 ml Intake Oral 0 ml IV Total 1927 ml 1645.0 ml Output Urine Total 510 ml 560 ml # Bowel Movements 4 2 Laboratory Tests 07/01/19 06:10: White Blood Count 6.9#, Red Blood Count 2.63L, Hemoglobin 8.2L, Hematocrit 24.0L , Mean Corpuscular Volume 91, Mean Corpuscular Hemoglobin 31.3H, Mean Corpuscular Hemoglobin Concent 34.3, Red Cell Distribution Width 17.0H, Platelet Count 61L, Mean Platelet Volume 8.5, Neutrophils (%) (Auto) , Lymphocytes (%) (Auto) , Monocytes (%) (Auto) , Eosinophils (%) (Auto) , Basophils (%) (Auto) , Differential Total Cells Counted 100, Neutrophils % ( Manual) 85H, Lymphocytes % (Manual) 7L, Monocytes % (Manual) 8, Eosinophils % ( Manual) 0, Basophils % (Manual) 0, Band Neutrophils 0, Platelet Estimate DecreasedL, Platelet Morphology Normal, Polychromasia 2+, Hypochromasia 1+, Anisocytosis 1+, Sodium Level 143, Potassium Level 3.4L, Chloride Level 115H, Carbon Dioxide Level 19L, Anion Gap 9, Blood Urea Nitrogen 33H, Creatinine 0.8, Estimat Glomerular Filtration Rate > 60, Glucose Level 183H, Lactic Acid Level 1.90, Calcium Level 7.0L, Total Bilirubin 3.0H, Direct Bilirubin 0.8H, Aspartate Amino Transf (AST/SGOT) 485H, Alanine Aminotransferase (ALT/SGPT) 695H , Alkaline Phosphatase 148H, Ammonia 55H, Total Protein 4.4L, Albumin 1.6L, Globulin 2.8, Albumin/Globulin Ratio 0.6L, Anti-Nuclear Antibody Screen [Pending ], Anti-Mitochondrial Antibody [Pending] Height (Feet): 5 Height (Inches): 2.00 Weight (Pounds): 140 Objective Debilitated L woman NCAT (+) intubated CTA RR abd soft NT ND no edema Karen Nunes MD Jul 01, 2019 15:45
[2019-07-01] MEDS ORDERED: Pantoprazole Inj IVP SCH (16:00)
--- NOTE | 2019-07-01 16:03 | Infectious Diseases Prog Note ---
Assessment/Plan Assessment/Plan Full consult dictated: A) 1) sepsis, shock, c.diff. colitis, gib, respiratory failure, vent 2) liver cirrhosis 3) pmh noted 4) allergies - nkda 5) mrsa colonization and isolation P) 1) rocephin, flagyl, vancomycin enema 2) check labs, cultures, chest x-ray 3) critical condition 4) thank you Subjective Allergies: Coded Allergies: No Known Allergies (Unverified , 06/27/19) Objective Vital Signs Last 24 Hour Vital Signs Date Time Temp Pulse Resp B/P (MAP) Pulse Ox O2 Delivery O2 Flow Rate FiO2 07/01/19 15:00 108 18 107/56 (73) 99 07/01/19 15:00 108 18 40 07/01/19 14:00 96 17 106/50 (68) 100 07/01/19 13:00 102 19 89/66 (74) 99 07/01/19 12:45 95 18 40 07/01/19 12:00 40 07/01/19 12:00 Mechanical Ventilator 07/01/19 12:00 98.9 111 19 99/45 (63) 95 07/01/19 11:00 98 18 99/40 (59) 97 07/01/19 10:45 98 17 40 07/01/19 10:30 102 23 108/40 (62) 100 07/01/19 10:00 99 19 103/43 (63) 98 07/01/19 09:30 99 19 98/41 (60) 97 07/01/19 09:00 94 19 111/45 (67) 97 07/01/19 08:31 99 22 40 07/01/19 08:30 97 21 99/31 (53) 97 07/01/19 08:00 96 07/01/19 08:00 Mechanical Ventilator 07/01/19 08:00 40 07/01/19 08:00 98.8 97 19 108/34 (58) 97 07/01/19 07:30 97 19 111/51 (71) 97 07/01/19 07:00 98 20 99/46 (63) 97 07/01/19 06:45 99 18 40 07/01/19 06:30 101 21 106/45 (65) 97 07/01/19 06:00 104 22 115/51 (72) 96 8/25/19 06:00 115/51 07/01/19 05:30 105 17 129/56 (80) 98 07/01/19 05:27 100 20 40 07/01/19 05:00 106 22 123/46 (71) 98 07/01/19 05:00 123/46 07/01/19 04:30 105 23 125/48 (73) 100 07/01/19 04:00 98.7 100 20 110/41 (64) 98 07/01/19 04:00 104 07/01/19 04:00 110/41 07/01/19 04:00 40 07/01/19 04:00 Mechanical Ventilator 07/01/19 03:30 103 24 40 07/01/19 03:30 103 24 129/42 (71) 98 07/01/19 03:00 106 24 142/56 (84) 97 07/01/19 03:00 142/56 07/01/19 02:30 93 18 111/45 (67) 98 07/01/19 02:00 110/40 07/01/19 02:00 94 19 110/40 (63) 98 07/01/19 01:45 97 22 40 07/01/19 01:30 93 19 112/39 (63) 98 07/01/19 01:00 92 17 109/37 (61) 98 07/01/19 01:00 109/37 07/01/19 00:30 93 18 112/42 (65) 97 07/01/19 00:00 97 07/01/19 00:00 Mechanical Ventilator 07/01/19 00:00 40 07/01/19 00:00 120/47 07/01/19 00:00 99.7 97 18 120/47 (71) 97 06/30/19 23:45 101 19 121/43 (69) 96 06/30/19 23:32 103/43 06/30/19 23:30 106 21 135/51 (79) 100 06/30/19 23:23 98 19 40 06/30/19 23:15 97 19 123/48 (73) 98 06/30/19 23:00 92 18 107/42 (63) 98 06/30/19 23:00 107/42 06/30/19 22:30 93 19 103/43 (63) 98 06/30/19 22:00 121/43 06/30/19 22:00 101 18 121/43 (69) 96 06/30/19 21:30 94 18 112/38 (62) 98 06/30/19 21:22 97 17 40 06/30/19 21:00 117/52 06/30/19 21:00 95 20 110/45 (66) 97 06/30/19 20:45 98 19 117/52 (73) 97 06/30/19 20:30 100 23 121/48 (72) 97 06/30/19 20:15 93 19 116/34 (61) 98 06/30/19 20:00 Mechanical Ventilator 06/30/19 20:00 98.7 94 19 113/44 (67) 98 06/30/19 20:00 40 06/30/19 20:00 113/44 06/30/19 20:00 95 06/30/19 19:30 93 18 109/38 (61) 98 06/30/19 19:15 94 18 40 06/30/19 19:00 104 20 105/90 (95) 97 06/30/19 19:00 105/90 06/30/19 18:30 98 21 118/40 (66) 95 06/30/19 18:01 102 23 129/49 (75) 99 06/30/19 18:00 125/49 06/30/19 17:30 97 21 118/43 (68) 98 06/30/19 17:30 95 22 40 06/30/19 17:00 104 23 125/49 (74) 100 06/30/19 17:00 129/45 06/30/19 16:30 94 23 111/41 (64) 98 06/30/19 16:15 95 22 119/41 (67) 98 Height (Feet): 5 Height (Inches): 2.00 Weight (Pounds): 140 Microbiology Date/Time Source Procedure Growth Status 06/30/19 18:00 Sputum Induced Gram Stain - Final Resulted 06/30/19 18:00 Sputum Induced Sputum Culture Pending Resulted 06/30/19 14:50 Stool Clostridium difficile Toxin Assay - Final Complete Laboratory Tests Test 07/01/19 06:10 White Blood Count 6.9 K/UL (4.8-10.8) # Red Blood Count 2.63 M/UL (4.20-5.40) L Hemoglobin 8.2 G/DL (12.0-16.0) L Hematocrit 24.0 % (37.0-47.0) L Mean Corpuscular Volume 91 FL (80-99) Mean Corpuscular Hemoglobin 31.3 PG (27.0-31.0) H Mean Corpuscular Hemoglobin Concent 34.3 G/DL (32.0-36.0) Red Cell Distribution Width 17.0 % (11.6-14.8) H Platelet Count 61 K/UL (150-450) L Mean Platelet Volume 8.5 FL (6.5-10.1) Neutrophils (%) (Auto) % (45.0-75.0) Lymphocytes (%) (Auto) % (20.0-45.0) Monocytes (%) (Auto) % (1.0-10.0) Eosinophils (%) (Auto) % (0.0-3.0) Basophils (%) (Auto) % (0.0-2.0) Differential Total Cells Counted 100 Neutrophils % (Manual) 85 % (45-75) H Lymphocytes % (Manual) 7 % (20-45) L Monocytes % (Manual) 8 % (1-10) Eosinophils % (Manual) 0 % (0-3) Basophils % (Manual) 0 % (0-2) Band Neutrophils 0 % (0-8) Platelet Estimate Decreased L Platelet Morphology Normal Polychromasia 2+ Hypochromasia 1+ Anisocytosis 1+ Sodium Level 143 MMOL/L (136-145) Potassium Level 3.4 MMOL/L (3.5-5.1) L Chloride Level 115 MMOL/L (98-107) H Carbon Dioxide Level 19 MMOL/L (21-32) L Anion Gap 9 mmol/L (5-15) Blood Urea Nitrogen 33 mg/dL (7-18) H Creatinine 0.8 MG/DL (0.55-1.30) Estimat Glomerular Filtration Rate > 60 mL/min (>60) Glucose Level 183 MG/DL (74-106) H Lactic Acid Level 1.90 mmol/L (0.4-2.0) Calcium Level 7.0 MG/DL (8.5-10.1) L Total Bilirubin 3.0 MG/DL (0.2-1.0) H Direct Bilirubin 0.8 MG/DL (0.0-0.3) H Aspartate Amino Transf (AST/SGOT) 485 U/L (15-37) H Alanine Aminotransferase (ALT/SGPT) 695 U/L (12-78) H Alkaline Phosphatase 148 U/L (46-116) H Ammonia 55 umol/L (11-32) H Total Protein 4.4 G/DL (6.4-8.2) L Albumin 1.6 G/DL (3.4-5.0) L Globulin 2.8 g/dL Albumin/Globulin Ratio 0.6 (1.0-2.7) L Anti-Nuclear Antibody Screen Pending Anti-Mitochondrial Antibody Pending Current Medications Medications (Trade) Dose Ordered Sig/Naseem Route PRN Reason Start Time Stop Time Status Last Admin Dose Admin Ceftriaxone Sodium 1 gm/ Sodium Chloride 55 ml @ 110 mls/hr DAILY IVPB 06/30/19 09:00 07/05/19 08:59 07/01/19 08:51 Chlorhexidine Gluconate (Mer-Hex 2%) 1 applic DAILY@2000 TOPIC 06/28/19 20:00 07/28/19 19:59 06/30/19 20:48 Dextrose (Dextrose 50%) 25 ml Q30M PRN IV Hypoglycemia 06/28/19 05:00 07/28/19 04:59 Dextrose (Dextrose 50%) 50 ml Q30M PRN IV Hypoglycemia 06/28/19 05:00 07/28/19 04:59 Insulin Aspart (NovoLOG) BEFORE MEALS AND HS SUBQ 06/28/19 06:30 07/28/19 06:29 07/01/19 11:09 Lactulose 200 gm/ Sterile Water 1,000 ml @ 1 mls/hr ONCE IRRIG 07/01/19 15:45 07/01/19 18:00 07/01/19 15:42 Metronidazole 100 ml @ 100 mls/hr Q8HR IVPB 07/01/19 14:00 07/08/19 13:59 07/01/19 15:08 Morphine Sulfate (Morphine Sulfate) 2 mg Q4H PRN IVP For Pain 06/28/19 09:15 07/05/19 09:14 06/29/19 02:29 Norepinephrine Bitartrate 4 mg/ Dextrose 250 ml @ 0 mls/hr Q24H IV 06/28/19 10:30 07/28/19 10:29 06/30/19 23:32 Octreotide Acetate 500 mcg/ Sodium Chloride 500 ml @ 25 mls/hr Q20H IV 07/01/19 09:45 07/31/19 09:44 07/01/19 11:06 Ondansetron HCl (Zofran) 4 mg Q6H PRN IVP Nausea & Vomiting 06/28/19 16:30 07/28/19 16:29 06/28/19 22:07 Pantoprazole (Protonix) 40 mg DAILY IVP 07/01/19 16:00 07/31/19 15:59 Potassium Chloride 100 ml @ 50 mls/hr Q2H IVPB 07/01/19 12:00 07/01/19 17:59 07/01/19 15:08 Sodium Chloride 1,000 ml @ 75 mls/hr [id number] IV 06/28/19 05:00 07/28/19 04:59 07/01/19 12:16 Jay Hurtado MD Jul 01, 2019 16:03
[2019-07-01 17:09] LABS: INR 1.3 (0.9-1.1)
--- NOTE | 2019-07-01 17:15 | Consultation ---
DATE OF CONSULTATION: 07/01/2019 INFECTIOUS DISEASES CONSULTATION CONSULTING PHYSICIAN: Jay Hurtado M.D. ATTENDING PHYSICIAN: Nghia Leigh M.D. REFERRING PHYSICIAN: Aileen Hsieh M.D. REASON FOR CONSULTATION: Sepsis shock, C.difficile, leukocytosis, fevers CHIEF COMPLAINT: The patient's chief complaint coming into the hospital is GI bleed. HISTORY OF PRESENT ILLNESS: The patient is a 69-year-old female who comes into [facility] with GI bleed. The patient is currently in ICU in respiratory failure. She was on pressors. She had leukocytosis and sepsis. She is currently off pressors on a vent. She is poorly responsive, status post I believe EGD. The patient has EGD and got banded for esophageal varices. The patient's workup again shows that she has C. difficile colitis, elevated white count, fevers, and sepsis shock. She is currently on Rocephin and Flagyl. I am going to add vancomycin enema because the patient is NPO currently, has no NG tube. Case discussed with Dr. Hsieh and RN. The patient cannot give any further history. She is in ICU and now off pressors. She is on a vent. We will continue Rocephin, Flagyl, vancomycin enema at this time. REVIEW OF SYSTEMS: The patient cannot any give any review of systems. She came in with GI bleed. She had low-grade fevers earlier. She was on pressors, currently off. She is on a vent. HEAD AND NECK: Orally intubated. CARDIAC: No pressors currently. GASTROINTESTINAL: She came with GI bleed. I believe she had diarrhea. GENITOURINARY: She has a Rouse. PULMONARY: She is on a vent. Review of systems is otherwise limited in this patient. PAST MEDICAL HISTORY: The patient has a past medical history of the following. The patient has past medical history of esophageal varices, questionable H pylori, history of cirrhosis. She has anemia. She also has a history of diabetes mellitus and history of GI bleed in the past. MEDICATIONS: No known drug allergies per the records. SOCIAL HISTORY: Negative for smoking, alcohol, or drug abuse. FAMILY HISTORY: Noncontributory. MEDICATIONS: Upon reviewing the MAR, she is on the following medications. She is on pantoprazole, lactulose, Rocephin, Flagyl. I am going to add vancomycin enema 500 mg q.i.d. She is on chlorhexidine, Zofran, norepinephrine, which has been turned off, morphine, insulin. Outside medications noted and reconciliated. PHYSICAL EXAMINATION: VITAL SIGNS: Temperature is 98.9, pulse rate 108, respiratory rate 18, blood pressure 107/56, saturation 99% on FiO2 40%. She is on a vent. T-max 99.8. GENERAL: Lethargic, poorly responsive. HEAD AND NECK: She is orally intubated. Eye exam, no obvious icterus. Normocephalic. HEART: Regular. No gallop or murmur. ABDOMEN: Soft. Positive bowel sounds. Decreased bowel sounds on examination. LUNGS: Bilateral rhonchi. No definite rales. SKIN: No rash. MUSCULOSKELETAL: No effusion. Legs are without cellulitis. PERIPHERAL VASCULAR: No cyanosis. GENITOURINARY: She has Rouse. Urine is slightly cloudy. LINE SITES: Without phlebitis NEUROLOGIC: Generalized weakness, poorly responsive LABORATORY DATA: UA is leukocyte esterase negative. Creatinine is 0.8. White count 6.9, hemoglobin 8.2, platelet count is 61. White count 2 days ago was 19.3. Cultures, C. difficile was positive. Sputum culture pending. Previous urine culture normal jessie. MRSA screen was positive. We will order some blood cultures too. IMAGING STUDIES: Chest x-ray shows no obvious consolidation mentioned, she has some increased vascular interstitial prominence. Initial chest x-ray was negative for pneumonia. Lung spaces were clear. C. difficile was positive. ASSESSMENT AND PLAN: 1. The patient has sepsis shock, GI bleed. The patient has C. difficile colitis positive. The patient has respiratory failure. No obvious pneumonia. UA was negative. We will check blood cultures. Continue Rocephin and Flagyl IV. We will add vancomycin enema because she has no NG tube and is NPO at this time. Continue Rocephin, Flagyl, and vancomycin enema for sepsis shock, C. difficle. Check urine culture labs and chest x-ray. Check blood cultures. 2. GI bleed. 3. Anemia. 4. H. pylori infection. 5. Diabetes. 6. Esophageal varices. 7. Respiratory failure. 8. Anemia and thrombocytopenia. 9. Liver cirrhosis. 10. Continue treatment per primary consultants. 11. No known drug allergies. 12. Social history is negative. 13. Family history is noncontributory. 14. MAR was noted. 15. Case was discussed with RN. 16. Case was discussed with Dr. Aileen Hsieh. Jay Hurtado M.D. DR: Antwan JOB#: [id number] CC:
[2019-07-01] MEDS ORDERED: NS 275ml ONE (17:51)
[2019-07-01] MEDS ORDERED: 1/2 NS 1000ml IV ONE (17:51)
--- NOTE | 2019-07-01 18:17 | NUR ---
NURSE NOTES: Dr. Sandra called to inform of Dr arzate order of Pepcid 20mg Q12 IVP due to platelet count being 61, ordered to have Protonix discontinue and place Pepcid once again q12hr ivp.
[2019-07-01] MEDS: SODIUM CHLORIDE IRRIG SCH (18:41)
[2019-07-01] MEDS: VANCOMYCIN IRRIG SCH (18:41)
--- NOTE | 2019-07-01 19:31 | NUR ---
HAND-OFF: Report given to ROMAIN degroot. .
--- NOTE | 2019-07-01 19:35 | NUR ---
NURSE NOTES: Received report and pt from ROMAIN Montero. Pt is awake, non verbal, fatigue, orally intubated. Pt is Sami speaking, family is at bedside. ETT 8.0 at 21cm right lipline with vent settings AC16, VT550, FIO2 40% with O2Sat at 100% and bilateral inspiratory/expiratory diminished lung sounds. Bilateral peripheral weak pulses are noted on palpation. Pt has left femoral TLC currently with IV fluid infusing 0.45% NS at 75ml/hour and Sandostatin at 25mcg/hr. Temp 98.7F axillary. Abdomen is large, round, tender to touch with hypoactive bowel sounds in all quadrants. Pt has Rouse in place, with small dark yellow urine output. Bilateral soft wrist restrains noted. Skin is intact. Bed is locked with three side rails up in lowest position and call light within reach. Will continue to monitor pt and follow plan of care per MD orders and protocol.
[2019-07-01] MEDS: Dyna-Hex 2% Top Sol 2oz TOPIC SCH (20:21)
--- NOTE | 2019-07-01 22:00 | NUR ---
NURSE NOTES: Pt's resting in bed, in no acute distress. VS stable. Family at the bed side. Will continue to monitor.
[2019-07-02] VITALS (24 sets, daily range): BP systolic 95–132; BP diastolic 43–64
[2019-07-02] MEDS: VANCOMYCIN IRRIG SCH ×5 (00:02→23:35)
[2019-07-02] MEDS: SODIUM CHLORIDE IRRIG SCH ×5 (00:02→23:35)
--- NOTE | 2019-07-02 02:00 | NUR ---
NURSE NOTES: Pt's resting in bed, asleep, in no acute distress. VS stable. Family at the bed side. Will continue to monitor.
--- NOTE | 2019-07-02 04:00 | NUR ---
NURSE NOTES: Pt's resting in bed, in no acute distress. VS stable. Family at the bed side. Will continue to monitor.
[2019-07-02 05:17] LABS: HEMATOCRIT 21.5 % (37.0-47.0); HEMOGLOBIN 7.2 G/DL (12.0-16.0); MEAN CORPUSCULAR VOLUME 94 FL (80-99); PLATELET COUNT 46 K/UL (150-450); RED BLOOD COUNT 2.29 M/UL (4.20-5.40); RED CELL DISTRIBUTION WIDTH 18.6 % (11.6-14.8); WHITE BLOOD COUNT 5.9 K/UL (4.8-10.8)
[2019-07-02 05:26] LABS: ANION GAP 6 mmol/L (5-15); BLOOD UREA NITROGEN 34 mg/dL (7-18); CARBON DIOXIDE 20 MMOL/L (21-32); CHLORIDE 115 MMOL/L (98-107); CREATININE 0.8 MG/DL (0.55-1.30); POTASSIUM 3.8 MMOL/L (3.5-5.1); SODIUM 141 MMOL/L (136-145)
--- NOTE | 2019-07-02 06:00 | NUR ---
NURSE NOTES: Pt's resting in bed, in no acute distress. Still having small amount of melena. VS stable. Will continue to monitor.
[2019-07-02] MEDS: NovoLOG Insulin Flexpen SUBQ SCH ×4 (06:12→20:58)
--- NOTE | 2019-07-02 07:00 | NUR ---
RESPIRATORY NOTE: Received Patient on Vent settings of ACVC RR 16, VT 550, FIO2 40%, PEEP +0. Patient intubated with 8.0 ETT at 20cm at the lip, secured with anchorfast. Bilateral breath sounds reveal diminished through all lobes. Suction a moderate amount of thick ribera secretions Q2 and PRN. Patient alert and confused. Vent alarms are on and audible. Vent plugged into red outlet. Will continue to monitor throughout the day.
--- NOTE | 2019-07-02 07:00 | NUR ---
NURSE NOTES: Informed Dr. Garcia about pt's current Hgb level. Dr Garcia aware. No new order at this time. Will continue to monitor.
--- NOTE | 2019-07-02 07:05 | NUR ---
RESPIRATORY NOTES: Weaning trial passed. Weaning started at 704. PS +8 PEEP +0 FIO2 40%. Patient tolerating well. Will continue to monitor.
--- NOTE | 2019-07-02 07:30 | NUR ---
HAND-OFF: Report given to ROMAIN Montero.
--- NOTE | 2019-07-02 08:30 | NUR ---
NURSE NOTES: Dr. arzate aware of patient Platelet count this morning and ordered to monitor, but ordered one unit of PRBC for hgb of 7.2.
[2019-07-02] MEDS: cefTRIAXone 1 GM in NS 55 ML IVPB SCH (09:26)
--- NOTE | 2019-07-02 09:46 | General Progress Note ---
Assessment/Plan Status: stable Assessment/Plan: Assessment - Cirrhosis - UGIB due to esophageal varicies s/p banding - C Diff, on IV flagyl (no oral access for PO vanco at this time) - Resp failure - anemia - lactic acidosis - leukocytosis - guarded Recommendations - No NGT - serial CBC - transfuse PRN to keep Hg > 7>>> one unit today - keep NPO - H2B - increase octreotide back to 50 - IV abx -pending possible extubation for today Subjective ROS Limited/Unobtainable: No Allergies: Coded Allergies: No Known Allergies (Unverified , 06/27/19) Objective Last 24 Hour Vital Signs Date Time Temp Pulse Resp B/P (MAP) Pulse Ox O2 Delivery O2 Flow Rate FiO2 07/02/19 09:00 101 22 117/50 (72) 99 07/02/19 08:00 98.3 102 19 119/56 (77) 100 07/02/19 08:00 Mechanical Ventilator 07/02/19 07:53 40 07/02/19 07:05 96 19 40 40 07/02/19 07:00 99 18 118/60 (79) 100 07/02/19 06:00 105 18 114/43 (66) 100 07/02/19 05:18 106 17 40 07/02/19 05:00 102 18 114/43 (66) 100 07/02/19 04:00 93 18 101/51 (68) 100 07/02/19 04:00 40 07/02/19 04:00 Mechanical Ventilator 07/02/19 04:00 95 07/02/19 03:57 102 16 40 07/02/19 03:00 109 18 100/54 (69) 100 07/02/19 02:00 109 18 123/54 (77) 100 07/02/19 01:05 103 16 40 07/02/19 01:00 100 18 130/60 (83) 100 07/02/19 00:00 Mechanical Ventilator 07/02/19 00:00 91 07/02/19 00:00 110 18 132/62 (85) 100 07/01/19 23:15 111 20 40 07/01/19 23:00 99 18 104/51 (68) 100 07/01/19 22:00 101 18 110/60 (77) 100 07/01/19 21:00 106 18 127/112 (117) 100 106 8/25/19 20:50 106 21 40 07/01/19 20:00 100 07/01/19 20:00 40 07/01/19 20:00 Mechanical Ventilator 07/01/19 20:00 103 17 128/60 (82) 99 103 07/01/19 19:30 103 21 40 07/01/19 19:00 98 16 101/42 (61) 98 07/01/19 18:00 105 18 126/55 (78) 99 07/01/19 17:00 101 16 112/45 (67) 100 07/01/19 16:32 102 16 40 07/01/19 16:00 98.6 108 19 122/51 (74) 100 07/01/19 16:00 40 07/01/19 16:00 104 07/01/19 16:00 Mechanical Ventilator 07/01/19 15:00 108 18 107/56 (73) 99 07/01/19 15:00 108 18 40 07/01/19 14:00 96 17 106/50 (68) 100 07/01/19 13:00 102 19 89/66 (74) 99 07/01/19 12:45 95 18 40 07/01/19 12:00 40 07/01/19 12:00 Mechanical Ventilator 07/01/19 12:00 125 07/01/19 12:00 98.9 111 19 99/45 (63) 95 07/01/19 11:00 98 18 99/40 (59) 97 07/01/19 10:45 98 17 40 07/01/19 10:30 102 23 108/40 (62) 100 07/01/19 10:00 99 19 103/43 (63) 98 Intake and Output 07/01/19 07/02/19 19:00 07:00 Intake Total 1533 ml 1300 ml Output Total 555 ml 695 ml Balance 978 ml 605 ml IV Total 1453 ml 1300 ml Other 80 ml Output Urine Total 555 ml 695 ml # Bowel Movements 2 2 Laboratory Tests 07/01/19 16:30: Prothrombin Time 13.5H, Prothromb Time International Ratio 1.3H 07/02/19 04:00: White Blood Count 5.9, Red Blood Count 2.29L, Hemoglobin 7.2L, Hematocrit 21.5L , Mean Corpuscular Volume 94, Mean Corpuscular Hemoglobin 31.5H, Mean Corpuscular Hemoglobin Concent 33.5, Red Cell Distribution Width 18.6H, Platelet Count 46L, Mean Platelet Volume 8.4, Neutrophils (%) (Auto) , Lymphocytes (%) (Auto) , Monocytes (%) (Auto) , Eosinophils (%) (Auto) , Basophils (%) (Auto) , Sodium Level 141, Potassium Level 3.8, Chloride Level 115H, Carbon Dioxide Level 20L, Anion Gap 6, Blood Urea Nitrogen 34H, Creatinine 0.8, Estimat Glomerular Filtration Rate > 60, Glucose Level 136H, Calcium Level 7.0L Height (Feet): 5 Height (Inches): 2.00 Weight (Pounds): 137 General Appearance: no apparent distress EENT: normal ENT inspection Neck: supple Cardiovascular: tachycardia Respiratory/Chest: decreased breath sounds Abdomen: normal bowel sounds, non tender, soft Extremities: non-tender Mina Garcia MD Jul 02, 2019 09:46
[2019-07-02] MEDS ORDERED: Octreotide Acetate 500 MCG in Sodium Chloride 499 ML IV SCH (10:00)
--- NOTE | 2019-07-02 10:00 | NUR ---
NURSE NOTES: Dr. Zeng aware of patient being weaning at Cpap with PS of 8, will continue to wean but hold of on extubation until more awake, will continue to monitor.
--- NOTE | 2019-07-02 10:11 | Pulmonology Progress Note ---
Assessment/Plan Assessment/Plan IMPRESSION: 1. Respiratory failure. Will continue to wean. Trim ETT 2. Upper GI bleed, likely gastric varices. S/p EGD 3. Diabetes mellitus. 4. Anemia. Hgb stable 5. Thrombocytopenia; 6. Likely hepatic encephalopathy; continue lactulose; has C diff + DISCUSSION: Continue IV fluids. Continue Protonix and octreotide. Maintain vent; continue weaning. Continue lactulose Abx for C diff James Zeng M.D. Subjective Interval Events: More awake; responsive Constitutional: Reports: no symptoms HEENT: Repors: no symptoms Respiratory: Reports: no symptoms Cardiovascular: Reports: no symptoms Gastrointestinal/Abdominal: Reports: no symptoms Allergies: Coded Allergies: No Known Allergies (Unverified , 06/27/19) Objective Last 24 Hour Vital Signs Date Time Temp Pulse Resp B/P (MAP) Pulse Ox O2 Delivery O2 Flow Rate FiO2 07/02/19 09:00 101 22 117/50 (72) 99 07/02/19 08:00 98.3 102 19 119/56 (77) 100 07/02/19 08:00 Mechanical Ventilator 07/02/19 07:53 40 07/02/19 07:05 96 19 40 40 07/02/19 07:00 99 18 118/60 (79) 100 07/02/19 06:00 105 18 114/43 (66) 100 07/02/19 05:18 106 17 40 07/02/19 05:00 102 18 114/43 (66) 100 07/02/19 04:00 93 18 101/51 (68) 100 07/02/19 04:00 40 07/02/19 04:00 Mechanical Ventilator 07/02/19 04:00 95 07/02/19 03:57 102 16 40 07/02/19 03:00 109 18 100/54 (69) 100 07/02/19 02:00 109 18 123/54 (77) 100 07/02/19 01:05 103 16 40 07/02/19 01:00 100 18 130/60 (83) 100 07/02/19 00:00 Mechanical Ventilator 07/02/19 00:00 91 07/02/19 00:00 110 18 132/62 (85) 100 07/01/19 23:15 111 20 40 07/01/19 23:00 99 18 104/51 (68) 100 07/01/19 22:00 101 18 110/60 (77) 100 07/01/19 21:00 106 18 127/112 (117) 100 106 07/01/19 20:50 106 21 40 07/01/19 20:00 100 07/01/19 20:00 40 07/01/19 20:00 Mechanical Ventilator 07/01/19 20:00 103 17 128/60 (82) 99 103 07/01/19 19:30 103 21 40 07/01/19 19:00 98 16 101/42 (61) 98 07/01/19 18:00 105 18 126/55 (78) 99 07/01/19 17:00 101 16 112/45 (67) 100 07/01/19 16:32 102 16 40 07/01/19 16:00 98.6 108 19 122/51 (74) 100 07/01/19 16:00 40 07/01/19 16:00 104 07/01/19 16:00 Mechanical Ventilator 07/01/19 15:00 108 18 107/56 (73) 99 07/01/19 15:00 108 18 40 07/01/19 14:00 96 17 106/50 (68) 100 07/01/19 13:00 102 19 89/66 (74) 99 07/01/19 12:45 95 18 40 07/01/19 12:00 40 07/01/19 12:00 Mechanical Ventilator 07/01/19 12:00 125 07/01/19 12:00 98.9 111 19 99/45 (63) 95 07/01/19 11:00 98 18 99/40 (59) 97 07/01/19 10:45 98 17 40 07/01/19 10:30 102 23 108/40 (62) 100 Intake and Output 07/01/19 07/02/19 19:00 07:00 Intake Total 1533 ml 1300 ml Output Total 555 ml 695 ml Balance 978 ml 605 ml IV Total 1453 ml 1300 ml Other 80 ml Output Urine Total 555 ml 695 ml # Bowel Movements 2 2 General Appearance: no acute distress HEENT: normocephalic Respiratory/Chest: chest wall non-tender, lungs clear Cardiovascular: normal peripheral pulses Abdomen: normal bowel sounds Microbiology Date/Time Source Procedure Growth Status 06/29/19 17:15 Blood Blood Culture - Preliminary NO GROWTH AFTER 48 HOURS Resulted 06/29/19 15:44 Blood Blood Culture - Preliminary NO GROWTH AFTER 48 HOURS Resulted 06/30/19 18:00 Sputum Induced Gram Stain - Final Resulted 06/30/19 18:00 Sputum Culture - Preliminary Staphylococcus Aureus Usual Respiratory Araceli Resulted 06/30/19 14:50 Stool Clostridium difficile Toxin Assay - Final Complete Laboratory Tests 07/01/19 16:30: Prothrombin Time 13.5H, Prothromb Time International Ratio 1.3H 07/02/19 04:00: White Blood Count 5.9, Red Blood Count 2.29L, Hemoglobin 7.2L, Hematocrit 21.5L , Mean Corpuscular Volume 94, Mean Corpuscular Hemoglobin 31.5H, Mean Corpuscular Hemoglobin Concent 33.5, Red Cell Distribution Width 18.6H, Platelet Count 46L, Mean Platelet Volume 8.4, Neutrophils (%) (Auto) , Lymphocytes (%) (Auto) , Monocytes (%) (Auto) , Eosinophils (%) (Auto) , Basophils (%) (Auto) , Sodium Level 141, Potassium Level 3.8, Chloride Level 115H, Carbon Dioxide Level 20L, Anion Gap 6, Blood Urea Nitrogen 34H, Creatinine 0.8, Estimat Glomerular Filtration Rate > 60, Glucose Level 136H, Calcium Level 7.0L Current Medications Medications (Trade) Dose Ordered Sig/Naseem Route PRN Reason Start Time Stop Time Status Last Admin Dose Admin Ceftriaxone Sodium 1 gm/ Sodium Chloride 55 ml @ 110 mls/hr DAILY IVPB 06/30/19 09:00 07/05/19 08:59 07/02/19 09:26 Chlorhexidine Gluconate (Mer-Hex 2%) 1 applic DAILY@2000 TOPIC 06/28/19 20:00 07/28/19 19:59 07/01/19 20:21 Dextrose (Dextrose 50%) 25 ml Q30M PRN IV Hypoglycemia 06/28/19 05:00 07/28/19 04:59 Dextrose (Dextrose 50%) 50 ml Q30M PRN IV Hypoglycemia 06/28/19 05:00 07/28/19 04:59 Famotidine (Pepcid I.v.) 20 mg Q12HR IVP 07/02/19 21:00 08/01/19 20:59 Insulin Aspart (NovoLOG) BEFORE MEALS AND HS SUBQ 06/28/19 06:30 07/28/19 06:29 07/01/19 17:00 Metronidazole 100 ml @ 100 mls/hr Q8HR IVPB 07/01/19 14:00 07/08/19 13:59 07/02/19 05:32 Morphine Sulfate (Morphine Sulfate) 2 mg Q4H PRN IVP For Pain 06/28/19 09:15 07/05/19 09:14 06/29/19 02:29 Norepinephrine Bitartrate 4 mg/ Dextrose 250 ml @ 0 mls/hr Q24H IV 06/28/19 10:30 07/28/19 10:29 06/30/19 23:32 Octreotide Acetate 500 mcg/ Sodium Chloride 500 ml @ 50 mls/hr Q10H IV 07/02/19 09:45 08/01/19 09:44 UNV Octreotide Acetate 500 mcg/ Sodium Chloride 500 ml @ 50 mls/hr Q10H IV 07/02/19 10:00 07/31/19 09:44 Ondansetron HCl (Zofran) 4 mg Q6H PRN IVP Nausea & Vomiting 06/28/19 16:30 07/28/19 16:29 06/28/19 22:07 Sodium Chloride 1,000 ml @ 75 mls/hr [id number] IV 06/28/19 05:00 07/28/19 04:59 07/02/19 04:00 Vancomycin HCl 0.5 gm/Sodium Chloride 100 ml @ 0 mls/hr Q6HR IRRIG 07/01/19 18:00 07/06/19 17:59 07/02/19 05:33 James Zeng MD Jul 02, 2019 10:11
--- NOTE | 2019-07-02 10:39 | NUR ---
RD ASSESSMENT & RECOMMENDATIONS SEE CARE ACTIVITY FOR COMPLETE ASSESSMENT DAILY ESTIMATED NEEDS: Needs based on Critical care, cirrhosis/ 48kg 22-28 kcals/kg 1418-4595 total kcals 1.2-2 g protein/kg 58-96 g total protein 25-30 mL/kg 1913-2125 total fluid mLs NUTRITION DIAGNOSIS: * Swallowing difficulty R/T respiratory status as evidenced by orally intubated, unable to obtain GI access 2/2 esophageal varices. * Altered nutrition related lab values R/T DM, cirrhosis, GIB, clinical condition as evidenced by elev POC glu ([phone]), elev T bili (3.0), elev LFTs, trending up, low hgb (7.2 trend back down), elev LA. PO DIET RECOMMENDATIONS: WHEN SAFE FOR DIET POST EXTUBATION: LOW NA, CCHO LOW ENTERAL NUTRITION RECOMMENDATIONS: Vital AF 1.2 @ 45ml/hr x 24 hrs to provide 1080ml, 1296kcal, 81g prot, 876ml free water * IF PT REMAINS ORALLY INTUBATED AND IS MEDICALLY ABLE TO OBTAIN GI ACCESS: -> Initiate Vital AF 1.2 @ 15ml/hr x 6 hrs -> Advance 10ml q 4-6 hrs as tolerated to goal rate -> HOB Over 30 degrees/ water flush per MD -> IF not HD stable, rec trophic feeding of Vital AF 1.2 @ 10-15ml/hr PARENTERAL NUTRITION RECOMMENDATIONS: TPN Comment: CONSULT RD IF UNABLE TO EXTUBATE AND UNABLE TO OBTAIN GI ACCESS/ PT MAY REQUIRE PARENTERAL NUTRITION ADDITIONAL RECOMMENDATIONS: * Calibrated bedscale wt for accurate cbw Bedscale wt of 137lbs vs family's stated wt of ~106lbs * Monitor liver fxn- LFTs trending up * Monitor NPO status, respiratory status -> remains intubated at this time, maintain AC mode per MD * Monitor lytes, replete as needed
--- NOTE | 2019-07-02 10:54 | NUR ---
NURSE NOTES: [place]mann top taken to blood bank for analysis for one unit of PRBC ordered by dr. arzate, awaiting for unit to be prepared.
--- NOTE | 2019-07-02 10:54 | NUR ---
NURSE NOTES: Dr. Garcia informed of patient hgb level and Sandostatin of 25ml/hr ordered to have the patient Sandostatin increase to 50ml.hr,
--- NOTE | 2019-07-02 11:25 | NUR ---
RESPIRATORY NOTES: Weaning ended at 1125 due to increased WOB. Placed back onto previous settings.
--- NOTE | 2019-07-02 12:00 | NUR ---
NURSE NOTES: Patient returned to AC mode due to having respiratory distress with respirations at 30-33 and coughing thick secretions. now patient is breathing at 16-22 with no distress noted, will continue to monitor
--- NOTE | 2019-07-02 12:26 | Infectious Diseases Prog Note ---
Assessment/Plan Assessment/Plan A) 1) sepsis, shock, c.diff. colitis, staph aureus pneumonia, gib, respiratory failure, vent 2) liver cirrhosis 3) pmh noted 4) allergies - nkda 5) mrsa colonization and isolation P) 1) rocephin, flagyl, vancomycin enema, add iv vancomycin for staph aureus pna 2) check labs, cultures, chest x-ray 3) critical condition 4) will f/u Subjective Constitutional: Reports: fatigue; Denies: fever HEENT: Reports: congestion Respiratory: Reports: shortness of breath Gastrointestinal/Abdominal: Denies: nausea, vomiting, diarrhea Genitourinary: Reports: other - + jackson Allergies: Coded Allergies: No Known Allergies (Unverified , 06/27/19) Objective Vital Signs Last 24 Hour Vital Signs Date Time Temp Pulse Resp B/P (MAP) Pulse Ox O2 Delivery O2 Flow Rate FiO2 07/02/19 11:59 96 07/02/19 11:26 94 20 40 07/02/19 11:00 96 16 106/51 (69) 100 07/02/19 10:00 97 24 107/46 (66) 100 07/02/19 09:02 96 21 40 40 07/02/19 09:02 100 07/02/19 09:00 101 22 117/50 (72) 99 07/02/19 08:00 98.3 102 19 119/56 (77) 100 07/02/19 08:00 96 07/02/19 08:00 Mechanical Ventilator 07/02/19 07:53 40 07/02/19 07:05 96 19 40 40 07/02/19 07:00 99 18 118/60 (79) 100 07/02/19 06:00 105 18 114/43 (66) 100 07/02/19 05:18 106 17 40 07/02/19 05:00 102 18 114/43 (66) 100 07/02/19 04:00 93 18 101/51 (68) 100 07/02/19 04:00 40 07/02/19 04:00 Mechanical Ventilator 07/02/19 04:00 95 07/02/19 03:57 102 16 40 07/02/19 03:00 109 18 100/54 (69) 100 07/02/19 02:00 109 18 123/54 (77) 100 07/02/19 01:05 103 16 40 8/26/19 01:00 100 18 130/60 (83) 100 07/02/19 00:00 Mechanical Ventilator 07/02/19 00:00 91 07/02/19 00:00 110 18 132/62 (85) 100 07/01/19 23:15 111 20 40 07/01/19 23:00 99 18 104/51 (68) 100 07/01/19 22:00 101 18 110/60 (77) 100 07/01/19 21:00 106 18 127/112 (117) 100 106 07/01/19 20:50 106 21 40 07/01/19 20:00 100 07/01/19 20:00 40 07/01/19 20:00 Mechanical Ventilator 07/01/19 20:00 103 17 128/60 (82) 99 103 07/01/19 19:30 103 21 40 07/01/19 19:00 98 16 101/42 (61) 98 07/01/19 18:00 105 18 126/55 (78) 99 07/01/19 17:00 101 16 112/45 (67) 100 07/01/19 16:32 102 16 40 07/01/19 16:00 98.6 108 19 122/51 (74) 100 07/01/19 16:00 40 07/01/19 16:00 104 07/01/19 16:00 Mechanical Ventilator 07/01/19 15:00 108 18 107/56 (73) 99 07/01/19 15:00 108 18 40 07/01/19 14:00 96 17 106/50 (68) 100 07/01/19 13:00 102 19 89/66 (74) 99 07/01/19 12:45 95 18 40 Height (Feet): 5 Height (Inches): 2.00 Weight (Pounds): 137 General Appearance: other - on vent, no pressors Respiratory/Chest: crackles/rales, rhonchi - bilaterally Cardiovascular: normal rate, regular rhythm Abdomen: soft, non tender, no organomegaly, non distended Microbiology Date/Time Source Procedure Growth Status 06/29/19 17:15 Blood Blood Culture - Preliminary NO GROWTH AFTER 48 HOURS Resulted 06/29/19 15:44 Blood Blood Culture - Preliminary NO GROWTH AFTER 48 HOURS Resulted 06/30/19 18:00 Sputum Induced Gram Stain - Final Resulted 06/30/19 18:00 Sputum Culture - Preliminary Staphylococcus Aureus Usual Respiratory Araceli Resulted 06/30/19 14:50 Stool Clostridium difficile Toxin Assay - Final Complete Laboratory Tests Test 07/01/19 16:30 07/02/19 04:00 Prothrombin Time 13.5 SEC (9.30-11.50) H Prothromb Time International Ratio 1.3 (0.9-1.1) H White Blood Count 5.9 K/UL (4.8-10.8) Red Blood Count 2.29 M/UL (4.20-5.40) L Hemoglobin 7.2 G/DL (12.0-16.0) L Hematocrit 21.5 % (37.0-47.0) L Mean Corpuscular Volume 94 FL (80-99) Mean Corpuscular Hemoglobin 31.5 PG (27.0-31.0) H Mean Corpuscular Hemoglobin Concent 33.5 G/DL (32.0-36.0) Red Cell Distribution Width 18.6 % (11.6-14.8) H Platelet Count 46 K/UL (150-450) L Mean Platelet Volume 8.4 FL (6.5-10.1) Neutrophils (%) (Auto) % (45.0-75.0) Lymphocytes (%) (Auto) % (20.0-45.0) Monocytes (%) (Auto) % (1.0-10.0) Eosinophils (%) (Auto) % (0.0-3.0) Basophils (%) (Auto) % (0.0-2.0) Sodium Level 141 MMOL/L (136-145) Potassium Level 3.8 MMOL/L (3.5-5.1) Chloride Level 115 MMOL/L (98-107) H Carbon Dioxide Level 20 MMOL/L (21-32) L Anion Gap 6 mmol/L (5-15) Blood Urea Nitrogen 34 mg/dL (7-18) H Creatinine 0.8 MG/DL (0.55-1.30) Estimat Glomerular Filtration Rate > 60 mL/min (>60) Glucose Level 136 MG/DL (74-106) H Calcium Level 7.0 MG/DL (8.5-10.1) L Current Medications Medications (Trade) Dose Ordered Sig/Naseem Route PRN Reason Start Time Stop Time Status Last Admin Dose Admin Ceftriaxone Sodium 1 gm/ Sodium Chloride 55 ml @ 110 mls/hr DAILY IVPB 06/30/19 09:00 07/05/19 08:59 07/02/19 09:26 Chlorhexidine Gluconate (Mer-Hex 2%) 1 applic DAILY@2000 TOPIC 06/28/19 20:00 07/28/19 19:59 07/01/19 20:21 Dextrose (Dextrose 50%) 25 ml Q30M PRN IV Hypoglycemia 06/28/19 05:00 07/28/19 04:59 Dextrose (Dextrose 50%) 50 ml Q30M PRN IV Hypoglycemia 06/28/19 05:00 07/28/19 04:59 Famotidine (Pepcid I.v.) 20 mg Q12HR IVP 07/02/19 21:00 08/01/19 20:59 Insulin Aspart (NovoLOG) BEFORE MEALS AND HS SUBQ 06/28/19 06:30 07/28/19 06:29 07/01/19 17:00 Metronidazole 100 ml @ 100 mls/hr Q8HR IVPB 07/01/19 14:00 07/08/19 13:59 07/02/19 05:32 Morphine Sulfate (Morphine Sulfate) 2 mg Q4H PRN IVP For Pain 06/28/19 09:15 07/05/19 09:14 06/29/19 02:29 Norepinephrine Bitartrate 4 mg/ Dextrose 250 ml @ 0 mls/hr Q24H IV 06/28/19 10:30 07/28/19 10:29 06/30/19 23:32 Octreotide Acetate 500 mcg/ Sodium Chloride 500 ml @ 50 mls/hr Q10H IV 07/02/19 10:00 07/02/19 13:29 Octreotide Acetate 500 mcg/ Sodium Chloride 500 ml @ 50 mls/hr Q10H IV 07/02/19 13:30 08/01/19 13:29 Ondansetron HCl (Zofran) 4 mg Q6H PRN IVP Nausea & Vomiting 06/28/19 16:30 07/28/19 16:29 06/28/19 22:07 Sodium Chloride 1,000 ml @ 75 mls/hr [id number] IV 06/28/19 05:00 07/28/19 04:59 07/02/19 04:00 Vancomycin HCl 0.5 gm/Sodium Chloride 100 ml @ 0 mls/hr Q6HR IRRIG 07/01/19 18:00 07/06/19 17:59 07/02/19 05:33 Jay Hurtado MD Jul 02, 2019 12:26
[2019-07-02] MEDS ORDERED: Vancomycin 1gm/D5W 275ml IVPB ONE ×2 (14:00)
--- NOTE | 2019-07-02 14:00 | NUR ---
NURSE NOTES: Blood transfusion of PRBC started with temperature of 97.6, no reaction noted at 15 post transfusion and increased to 120ml/hr. will continue to monitor for transfusion reactions,
--- NOTE | 2019-07-02 15:24 | NUR ---
*--* INSURANCE *--* ALL CLINICALS AND REVIEWS HAVE BEEN FAXED TO: [facility] [employer] DELEGATED TO [facility] F/S FAXED TO [facility] NCM: AKUA P- [phone] X [phone] F- [phone]...........REVIEW/ CLINICAL
--- NOTE | 2019-07-02 15:35 | Surgery Progress Note ---
Surgery Progress Note Subjective Additional Comments anemia on vent support ill appearing prognosis guarded Objective Last 24 Hour Vital Signs Date Time Temp Pulse Resp B/P (MAP) Pulse Ox O2 Delivery O2 Flow Rate FiO2 07/02/19 13:00 90 16 100/55 (70) 100 07/02/19 12:36 90 16 40 07/02/19 12:00 98.1 93 18 95/45 (62) 100 07/02/19 12:00 40 07/02/19 12:00 Mechanical Ventilator 07/02/19 11:59 96 07/02/19 11:26 94 20 40 07/02/19 11:00 96 16 106/51 (69) 100 07/02/19 10:30 107/46 07/02/19 10:00 97 24 107/46 (66) 100 07/02/19 09:02 96 21 40 40 07/02/19 09:02 100 07/02/19 09:00 101 22 117/50 (72) 99 07/02/19 08:00 98.3 102 19 119/56 (77) 100 07/02/19 08:00 96 07/02/19 08:00 Mechanical Ventilator 07/02/19 07:53 40 07/02/19 07:05 96 19 40 40 07/02/19 07:00 99 18 118/60 (79) 100 07/02/19 06:00 105 18 114/43 (66) 100 07/02/19 05:18 106 17 40 07/02/19 05:00 102 18 114/43 (66) 100 07/02/19 04:00 93 18 101/51 (68) 100 07/02/19 04:00 40 07/02/19 04:00 Mechanical Ventilator 07/02/19 04:00 95 07/02/19 03:57 102 16 40 07/02/19 03:00 109 18 100/54 (69) 100 07/02/19 02:00 109 18 123/54 (77) 100 07/02/19 01:05 103 16 40 07/02/19 01:00 100 18 130/60 (83) 100 07/02/19 00:00 Mechanical Ventilator 07/02/19 00:00 91 07/02/19 00:00 110 18 132/62 (85) 100 07/01/19 23:15 111 20 40 07/01/19 23:00 99 18 104/51 (68) 100 07/01/19 22:00 101 18 110/60 (77) 100 07/01/19 21:00 106 18 127/112 (117) 100 106 07/01/19 20:50 106 21 40 07/01/19 20:00 100 07/01/19 20:00 40 07/01/19 20:00 Mechanical Ventilator 07/01/19 20:00 103 17 128/60 (82) 99 103 07/01/19 19:30 103 21 40 07/01/19 19:00 98 16 101/42 (61) 98 07/01/19 18:00 105 18 126/55 (78) 99 07/01/19 17:00 101 16 112/45 (67) 100 07/01/19 16:32 102 16 40 07/01/19 16:00 98.6 108 19 122/51 (74) 100 07/01/19 16:00 40 07/01/19 16:00 104 07/01/19 16:00 Mechanical Ventilator I&O Intake and Output 07/01/19 07/02/19 19:00 07:00 Intake Total 1533 ml 1300 ml Output Total 555 ml 695 ml Balance 978 ml 605 ml IV Total 1453 ml 1300 ml Other 80 ml Output Urine Total 555 ml 695 ml # Bowel Movements 2 2 Cardiovascular: RSR Respiratory: clear, decreased breath sounds Abdomen: soft, distended, non-tender Extremities: no cyanosis Laboratory Tests Test 07/01/19 16:30 07/02/19 04:00 Prothrombin Time 13.5 SEC (9.30-11.50) H Prothromb Time International Ratio 1.3 (0.9-1.1) H White Blood Count 5.9 K/UL (4.8-10.8) Red Blood Count 2.29 M/UL (4.20-5.40) L Hemoglobin 7.2 G/DL (12.0-16.0) L Hematocrit 21.5 % (37.0-47.0) L Mean Corpuscular Volume 94 FL (80-99) Mean Corpuscular Hemoglobin 31.5 PG (27.0-31.0) H Mean Corpuscular Hemoglobin Concent 33.5 G/DL (32.0-36.0) Red Cell Distribution Width 18.6 % (11.6-14.8) H Platelet Count 46 K/UL (150-450) L Mean Platelet Volume 8.4 FL (6.5-10.1) Neutrophils (%) (Auto) % (45.0-75.0) Lymphocytes (%) (Auto) % (20.0-45.0) Monocytes (%) (Auto) % (1.0-10.0) Eosinophils (%) (Auto) % (0.0-3.0) Basophils (%) (Auto) % (0.0-2.0) Sodium Level 141 MMOL/L (136-145) Potassium Level 3.8 MMOL/L (3.5-5.1) Chloride Level 115 MMOL/L (98-107) H Carbon Dioxide Level 20 MMOL/L (21-32) L Anion Gap 6 mmol/L (5-15) Blood Urea Nitrogen 34 mg/dL (7-18) H Creatinine 0.8 MG/DL (0.55-1.30) Estimat Glomerular Filtration Rate > 60 mL/min (>60) Glucose Level 136 MG/DL (74-106) H Calcium Level 7.0 MG/DL (8.5-10.1) L Plan Problems: (1) Cirrhosis (2) Varices, esophageal (3) GI bleed Assessment & Plan: 69F with acute GI bleed. etiology likely prior varices anemia on admission and transfused currently in ICU intubated on support GI plan for EGD soon after eval for cardiac npo iv fluids ppi and aug gtt will follow with recs thank you (4) Acute GI bleeding Zaid Wong Jul 02, 2019 15:35
--- NOTE | 2019-07-02 16:10 | Hematology/Onc Progress Note ---
Assessment/Plan Assessment/Plan Assessment and Recs: # Anemia of GI bleed -- patient presents with occult+ bleeding, anemia panel reviewed iron stores are moderate but given 4 units prbc, can be falsely moderate, recheck in several days, anemia is due to variceal bleed --> as per GI eval, may need endoscopy --> has been started on ppi --> cea has been ordered - normal --> Hgb goal >7. Transfuse prn. --> (s/p 4 units prbc) --> Epogen or iron at this time is not particularly indicated --> Medications have been reviewed --> continue ppi and octreotide prn per gi --> hgb trend 8.8-->8.8-->8.2-->7.2 # Thrombocytopenia - potential causes multifactorial, evaluate liver and viral etiologies to begin, also could be related to underlying medications patient has received. In this case is due to etoh abuse, esoph varices and cirrhosis is noted, also potential c.diff infection --> Hep panel pending and HIV negative --> US abd does show cirrhosis --> Peripheral smear ordered to evaluate for blasts /schistocytes does not show any --> abx and other meds have been reviewed --> ok for ppx if plt >50k w/ either heparin or lovenox --> Transfuse if Plt < 20k and fever, or if Plt < 10k without fever --> plt count 90k-->46k --> EGD per gi --> s/p plt transfusion on 06/29 # Varices, esophageal --> potential rupture as per gi recs # Cirrhosis --> with hepatic enceph --> gi recs prn # Resp failure on vent --> per pulm weaning sbt --> per pulm # Hypokalemia with dec K --> given IV k as per pcp The timing of this note does not necessarily reflect the time of the patient was seen. GREATLY APPRECIATE CONSULTATION. Subjective Cardiovascular: Denies: no symptoms, chest pain, edema, irregular heart rate, lightheadedness, palpitations, syncope, other Gastrointestinal/Abdominal: Denies: no symptoms, abdomen distended, abdominal pain, black stools, tarry stools, blood in stool, constipated, diarrhea, difficulty swallowing, nausea, poor appetite, poor fluid intake, rectal bleeding , vomiting, other Genitourinary: Denies: no symptoms, burning, discharge, frequency, flank pain, hematuria, incontinence, pain, urgency, other Neurologic/Psychiatric: Denies: no symptoms, anxiety, depressed, emotional problems, headache, numbness, paresthesia, pre-existing deficit, seizure, tingling, tremors, weakness, other Allergies: Coded Allergies: No Known Allergies (Unverified , 06/27/19) Subjective 06/29: icu, s/p egd and plt tx, levo gtt 07/01: remains on vent, ivelisse Montero rn, with c. diff + and on abx, holding off weaning 07/02: remains on vent, c.diff abx, weaning tolerated well, no changed, ivelisse rn Objective Objective Current Medications Medications (Trade) Dose Ordered Sig/Naseem Route PRN Reason Start Time Stop Time Status Last Admin Dose Admin Ceftriaxone Sodium 1 gm/ Sodium Chloride 55 ml @ 110 mls/hr DAILY IVPB 06/30/19 09:00 07/05/19 08:59 07/02/19 09:26 Chlorhexidine Gluconate (Mer-Hex 2%) 1 applic DAILY@2000 TOPIC 06/28/19 20:00 07/28/19 19:59 07/01/19 20:21 Dextrose (Dextrose 50%) 25 ml Q30M PRN IV Hypoglycemia 06/28/19 05:00 07/28/19 04:59 Dextrose (Dextrose 50%) 50 ml Q30M PRN IV Hypoglycemia 06/28/19 05:00 07/28/19 04:59 Famotidine (Pepcid I.v.) 20 mg Q12HR IVP 07/02/19 21:00 08/01/19 20:59 Insulin Aspart (NovoLOG) BEFORE MEALS AND HS SUBQ 06/28/19 06:30 07/28/19 06:29 07/01/19 17:00 Metronidazole 100 ml @ 100 mls/hr Q8HR IVPB 07/01/19 14:00 07/08/19 13:59 07/02/19 13:46 Morphine Sulfate (Morphine Sulfate) 2 mg Q4H PRN IVP For Pain 06/28/19 09:15 07/05/19 09:14 06/29/19 02:29 Norepinephrine Bitartrate 4 mg/ Dextrose 250 ml @ 0 mls/hr Q24H IV 06/28/19 10:30 07/28/19 10:29 06/30/19 23:32 Octreotide Acetate 500 mcg/ Sodium Chloride 500 ml @ 50 mls/hr Q10H IV 07/02/19 13:30 08/01/19 13:29 Ondansetron HCl (Zofran) 4 mg Q6H PRN IVP Nausea & Vomiting 06/28/19 16:30 07/28/19 16:29 06/28/19 22:07 Sodium Chloride 1,000 ml @ 75 mls/hr [id number] IV 06/28/19 05:00 07/28/19 04:59 07/02/19 04:00 Vancomycin HCl (Vanco rx to dose) 1 ea DAILY PRN MISC Per rx protocol 07/02/19 12:30 08/01/19 12:29 Vancomycin HCl 0.5 gm/Sodium Chloride 100 ml @ 0 mls/hr Q6HR IRRIG 07/01/19 18:00 07/06/19 17:59 07/02/19 13:46 Vancomycin HCl 750 mg/Sodium Chloride 275 ml @ 183.333 mls/hr Q24H IVPB 07/03/19 14:00 07/08/19 13:59 Last 24 Hour Vital Signs Date Time Temp Pulse Resp B/P (MAP) Pulse Ox O2 Delivery O2 Flow Rate FiO2 07/02/19 15:00 88 16 103/52 (69) 100 07/02/19 14:00 93 16 115/44 (67) 100 07/02/19 13:00 90 16 100/55 (70) 100 07/02/19 12:36 90 16 40 07/02/19 12:00 98.1 93 18 95/45 (62) 100 07/02/19 12:00 40 07/02/19 12:00 Mechanical Ventilator 07/02/19 11:59 96 07/02/19 11:26 94 20 40 07/02/19 11:00 96 16 106/51 (69) 100 07/02/19 10:30 107/46 07/02/19 10:00 97 24 107/46 (66) 100 07/02/19 09:02 96 21 40 40 07/02/19 09:02 100 07/02/19 09:00 101 22 117/50 (72) 99 07/02/19 08:00 98.3 102 19 119/56 (77) 100 07/02/19 08:00 96 07/02/19 08:00 Mechanical Ventilator 07/02/19 07:53 40 07/02/19 07:05 96 19 40 40 07/02/19 07:00 99 18 118/60 (79) 100 07/02/19 06:00 105 18 114/43 (66) 100 07/02/19 05:18 106 17 40 07/02/19 05:00 102 18 114/43 (66) 100 07/02/19 04:00 93 18 101/51 (68) 100 07/02/19 04:00 40 07/02/19 04:00 Mechanical Ventilator 07/02/19 04:00 95 07/02/19 03:57 102 16 40 07/02/19 03:00 109 18 100/54 (69) 100 07/02/19 02:00 109 18 123/54 (77) 100 07/02/19 01:05 103 16 40 07/02/19 01:00 100 18 130/60 (83) 100 07/02/19 00:00 Mechanical Ventilator 07/02/19 00:00 91 07/02/19 00:00 110 18 132/62 (85) 100 07/01/19 23:15 111 20 40 07/01/19 23:00 99 18 104/51 (68) 100 07/01/19 22:00 101 18 110/60 (77) 100 07/01/19 21:00 106 18 127/112 (117) 100 106 07/01/19 20:50 106 21 40 07/01/19 20:00 100 07/01/19 20:00 40 07/01/19 20:00 Mechanical Ventilator 07/01/19 20:00 103 17 128/60 (82) 99 103 07/01/19 19:30 103 21 40 07/01/19 19:00 98 16 101/42 (61) 98 07/01/19 18:00 105 18 126/55 (78) 99 07/01/19 17:00 101 16 112/45 (67) 100 07/01/19 16:32 102 16 40 07/01/19 16:00 98.6 108 19 122/51 (74) 100 07/01/19 16:00 40 07/01/19 16:00 104 07/01/19 16:00 Mechanical Ventilator 07/01/19 15:00 108 18 107/56 (73) 99 07/01/19 15:00 108 18 40 07/01/19 14:00 96 17 106/50 (68) 100 07/01/19 13:00 102 19 89/66 (74) 99 07/01/19 12:45 95 18 40 07/01/19 12:00 40 07/01/19 12:00 Mechanical Ventilator 07/01/19 12:00 125 07/01/19 12:00 98.9 111 19 99/45 (63) 95 07/01/19 11:00 98 18 99/40 (59) 97 07/01/19 10:45 98 17 40 07/01/19 10:30 102 23 108/40 (62) 100 07/01/19 10:00 99 19 103/43 (63) 98 07/01/19 09:30 99 19 98/41 (60) 97 07/01/19 09:00 94 19 111/45 (67) 97 07/01/19 08:31 99 22 40 07/01/19 08:30 97 21 99/31 (53) 97 07/01/19 08:00 96 07/01/19 08:00 Mechanical Ventilator 07/01/19 08:00 40 07/01/19 08:00 98.8 97 19 108/34 (58) 97 07/01/19 07:30 97 19 111/51 (71) 97 07/01/19 07:00 98 20 99/46 (63) 97 07/01/19 06:45 99 18 40 07/01/19 06:30 101 21 106/45 (65) 97 07/01/19 06:00 104 22 115/51 (72) 96 07/01/19 06:00 115/51 07/01/19 05:30 105 17 129/56 (80) 98 07/01/19 05:27 100 20 40 07/01/19 05:00 106 22 123/46 (71) 98 07/01/19 05:00 123/46 07/01/19 04:30 105 23 125/48 (73) 100 07/01/19 04:00 98.7 100 20 110/41 (64) 98 07/01/19 04:00 104 07/01/19 04:00 110/41 07/01/19 04:00 40 07/01/19 04:00 Mechanical Ventilator 07/01/19 03:30 103 24 40 07/01/19 03:30 103 24 129/42 (71) 98 07/01/19 03:00 106 24 142/56 (84) 97 07/01/19 03:00 142/56 07/01/19 02:30 93 18 111/45 (67) 98 07/01/19 02:00 110/40 07/01/19 02:00 94 19 110/40 (63) 98 07/01/19 01:45 97 22 40 07/01/19 01:30 93 19 112/39 (63) 98 07/01/19 01:00 92 17 109/37 (61) 98 07/01/19 01:00 109/37 07/01/19 00:30 93 18 112/42 (65) 97 07/01/19 00:00 97 07/01/19 00:00 Mechanical Ventilator 07/01/19 00:00 40 07/01/19 00:00 120/47 07/01/19 00:00 99.7 97 18 120/47 (71) 97 06/30/19 23:45 101 19 121/43 (69) 96 06/30/19 23:32 103/43 06/30/19 23:30 106 21 135/51 (79) 100 06/30/19 23:23 98 19 40 06/30/19 23:15 97 19 123/48 (73) 98 06/30/19 23:00 92 18 107/42 (63) 98 06/30/19 23:00 107/42 06/30/19 22:30 93 19 103/43 (63) 98 06/30/19 22:00 121/43 06/30/19 22:00 101 18 121/43 (69) 96 06/30/19 21:30 94 18 112/38 (62) 98 06/30/19 21:22 97 17 40 06/30/19 21:00 117/52 06/30/19 21:00 95 20 110/45 (66) 97 06/30/19 20:45 98 19 117/52 (73) 97 8/24/19 20:30 100 23 121/48 (72) 97 06/30/19 20:15 93 19 116/34 (61) 98 06/30/19 20:00 Mechanical Ventilator 06/30/19 20:00 98.7 94 19 113/44 (67) 98 06/30/19 20:00 40 06/30/19 20:00 113/44 06/30/19 20:00 95 06/30/19 19:30 93 18 109/38 (61) 98 06/30/19 19:15 94 18 40 06/30/19 19:00 104 20 105/90 (95) 97 06/30/19 19:00 105/90 06/30/19 18:30 98 21 118/40 (66) 95 06/30/19 18:01 102 23 129/49 (75) 99 06/30/19 18:00 125/49 06/30/19 17:30 97 21 118/43 (68) 98 06/30/19 17:30 95 22 40 06/30/19 17:00 104 23 125/49 (74) 100 06/30/19 17:00 129/45 06/30/19 16:30 94 23 111/41 (64) 98 06/30/19 16:15 95 22 119/41 (67) 98 Intake and Output 07/01/19 07/02/19 19:00 07:00 Intake Total 1533 ml 1300 ml Output Total 555 ml 695 ml Balance 978 ml 605 ml IV Total 1453 ml 1300 ml Other 80 ml Output Urine Total 555 ml 695 ml # Bowel Movements 2 2 Labs Test 06/30/19 04:00 06/30/19 04:30 06/30/19 08:15 06/30/19 11:30 Lactic Acid Level 2.50 mmol/L (0.4-2.0) 2.40 mmol/L (0.66-2.22) White Blood Count 19.0 K/UL (4.8-10.8) Red Blood Count 2.59 M/UL (4.20-5.40) Hemoglobin 8.2 G/DL (12.0-16.0) Hematocrit 23.4 % (37.0-47.0) Mean Corpuscular Volume 90 FL (80-99) Mean Corpuscular Hemoglobin 31.6 PG (27.0-31.0) Mean Corpuscular Hemoglobin Concent 34.9 G/DL (32.0-36.0) Red Cell Distribution Width 16.8 % (11.6-14.8) Platelet Count 95 K/UL (150-450) Mean Platelet Volume 8.3 FL (6.5-10.1) Neutrophils (%) (Auto) % (45.0-75.0) Lymphocytes (%) (Auto) % (20.0-45.0) Monocytes (%) (Auto) % (1.0-10.0) Eosinophils (%) (Auto) % (0.0-3.0) Basophils (%) (Auto) % (0.0-2.0) Differential Total Cells Counted 100 Neutrophils % (Manual) 89 % (45-75) Lymphocytes % (Manual) 3 % (20-45) Monocytes % (Manual) 8 % (1-10) Eosinophils % (Manual) 0 % (0-3) Basophils % (Manual) 0 % (0-2) Band Neutrophils 0 % (0-8) Platelet Estimate Decreased Platelet Morphology Normal Polychromasia 2+ Sodium Level 143 MMOL/L (136-145) Potassium Level 4.1 MMOL/L (3.5-5.1) Chloride Level 115 MMOL/L (98-107) Carbon Dioxide Level 20 MMOL/L (21-32) Anion Gap 9 mmol/L (5-15) Blood Urea Nitrogen 47 mg/dL (7-18) Creatinine 0.8 MG/DL (0.55-1.30) Estimat Glomerular Filtration Rate > 60 mL/min (>60) Glucose Level 184 MG/DL (74-106) Calcium Level 7.1 MG/DL (8.5-10.1) Total Bilirubin 2.3 MG/DL (0.2-1.0) Direct Bilirubin 0.5 MG/DL (0.0-0.3) Aspartate Amino Transf (AST/SGOT) 1202 U/L (15-37) Alanine Aminotransferase (ALT/SGPT) 903 U/L (12-78) Alkaline Phosphatase 150 U/L (46-116) Total Protein 4.3 G/DL (6.4-8.2) Albumin 1.7 G/DL (3.4-5.0) Globulin 2.6 g/dL Albumin/Globulin Ratio 0.7 (1.0-2.7) Test 06/30/19 12:00 06/30/19 14:10 07/01/19 06:10 07/01/19 16:30 Total Creatine Kinase 123 U/L (26-308) Acetaminophen Level 3 MCG/ML (10-30) Lactic Acid Level 1.80 mmol/L (0.4-2.0) 1.90 mmol/L (0.4-2.0) White Blood Count 6.9 K/UL (4.8-10.8) Red Blood Count 2.63 M/UL (4.20-5.40) Hemoglobin 8.2 G/DL (12.0-16.0) Hematocrit 24.0 % (37.0-47.0) Mean Corpuscular Volume 91 FL (80-99) Mean Corpuscular Hemoglobin 31.3 PG (27.0-31.0) Mean Corpuscular Hemoglobin Concent 34.3 G/DL (32.0-36.0) Red Cell Distribution Width 17.0 % (11.6-14.8) Platelet Count 61 K/UL (150-450) Mean Platelet Volume 8.5 FL (6.5-10.1) Neutrophils (%) (Auto) % (45.0-75.0) Lymphocytes (%) (Auto) % (20.0-45.0) Monocytes (%) (Auto) % (1.0-10.0) Eosinophils (%) (Auto) % (0.0-3.0) Basophils (%) (Auto) % (0.0-2.0) Differential Total Cells Counted 100 Neutrophils % (Manual) 85 % (45-75) Lymphocytes % (Manual) 7 % (20-45) Monocytes % (Manual) 8 % (1-10) Eosinophils % (Manual) 0 % (0-3) Basophils % (Manual) 0 % (0-2) Band Neutrophils 0 % (0-8) Platelet Estimate Decreased Platelet Morphology Normal Polychromasia 2+ Hypochromasia 1+ Anisocytosis 1+ Sodium Level 143 MMOL/L (136-145) Potassium Level 3.4 MMOL/L (3.5-5.1) Chloride Level 115 MMOL/L (98-107) Carbon Dioxide Level 19 MMOL/L (21-32) Anion Gap 9 mmol/L (5-15) Blood Urea Nitrogen 33 mg/dL (7-18) Creatinine 0.8 MG/DL (0.55-1.30) Estimat Glomerular Filtration Rate > 60 mL/min (>60) Glucose Level 183 MG/DL (74-106) Calcium Level 7.0 MG/DL (8.5-10.1) Total Bilirubin 3.0 MG/DL (0.2-1.0) Direct Bilirubin 0.8 MG/DL (0.0-0.3) Aspartate Amino Transf (AST/SGOT) 485 U/L (15-37) Alanine Aminotransferase (ALT/SGPT) 695 U/L (12-78) Alkaline Phosphatase 148 U/L (46-116) Ammonia 55 umol/L (11-32) Total Protein 4.4 G/DL (6.4-8.2) Albumin 1.6 G/DL (3.4-5.0) Globulin 2.8 g/dL Albumin/Globulin Ratio 0.6 (1.0-2.7) Anti-Nuclear Antibody Screen Negative (Negative) Prothrombin Time 13.5 SEC (9.30-11.50) Prothromb Time International Ratio 1.3 (0.9-1.1) Test 07/02/19 04:00 White Blood Count 5.9 K/UL (4.8-10.8) Red Blood Count 2.29 M/UL (4.20-5.40) Hemoglobin 7.2 G/DL (12.0-16.0) Hematocrit 21.5 % (37.0-47.0) Mean Corpuscular Volume 94 FL (80-99) Mean Corpuscular Hemoglobin 31.5 PG (27.0-31.0) Mean Corpuscular Hemoglobin Concent 33.5 G/DL (32.0-36.0) Red Cell Distribution Width 18.6 % (11.6-14.8) Platelet Count 46 K/UL (150-450) Mean Platelet Volume 8.4 FL (6.5-10.1) Neutrophils (%) (Auto) % (45.0-75.0) Lymphocytes (%) (Auto) % (20.0-45.0) Monocytes (%) (Auto) % (1.0-10.0) Eosinophils (%) (Auto) % (0.0-3.0) Basophils (%) (Auto) % (0.0-2.0) Sodium Level 141 MMOL/L (136-145) Potassium Level 3.8 MMOL/L (3.5-5.1) Chloride Level 115 MMOL/L (98-107) Carbon Dioxide Level 20 MMOL/L (21-32) Anion Gap 6 mmol/L (5-15) Blood Urea Nitrogen 34 mg/dL (7-18) Creatinine 0.8 MG/DL (0.55-1.30) Estimat Glomerular Filtration Rate > 60 mL/min (>60) Glucose Level 136 MG/DL (74-106) Calcium Level 7.0 MG/DL (8.5-10.1) Height (Feet): 5 Height (Inches): 2.00 Weight (Pounds): 137 Objective Physical Exam: Vitals: reviewed General Appearance: NAD HEENT: normocephalic, atraumatic ++VENT Respiratory/Chest: normal breath sounds bilaterally Cardiovascular/Chest: normal peripheral pulses, normal rate Abdomen: normal bowel sounds, soft, nontender Extremities: normal range of motion Anthony Chaudhary MD Jul 02, 2019 16:10
[2019-07-02] MEDS: Octreotide Acetate 500 MCG in Sodium Chloride 499 ML IV SCH (16:26)
--- NOTE | 2019-07-02 16:30 | NUR ---
NURSE NOTES: 1 unit of prbc transfused through left femoral TLC, see blood transfusion sheet.
--- NOTE | 2019-07-02 17:41 | NUR ---
CASE MANAGEMENT: REVIEW 06/30/2019 SI:ACUTE GI BLEED T 98.7 HR 95 RR 19 B/P 113/44 SATS 98% ON MECH VENT FIO2 40 WBC 19 CL 115 CO2 20 BUN 47 GLU 184 CA 7.1 TBILI 2.3 DBILI 0.5 AST 1202 ALT 903 ALP 150 IS: OCTREOTIDE IV @ 50 MCG/HR PROTONIX 25 mL/HR IVF @ 75 mL/HR CEFTRIAXONE IV QD INSULIN ASPART SUBQ AC/HS NOREPINEPHRINE PER PARAMETERS ICU DCP: PATIENT TO BE DISCHARGED TO HOME ONCE MEDICALLY CLEARED. 07/01/2019 SI:ACUTE GI BLEED T 99.7 HR 97 RR 18 B/P 120/47 SATS 97% ON MECH VENT FIO2 40 K 3.4 CL 115 CO2 19 BUN 33 GLU 183 CA 7 TBILI 3 DBILI 0.8 AST 485 ALT 695 ALP 695 ALP 148 IS: OCTREOTIDE IV @ 50 MCG/HR PROTONIX 25 mL/HR IVF @ 75 mL/HR CEFTRIAXONE IV QD INSULIN ASPART SUBQ AC/HS NOREPINEPHRINE PER PARAMETERS ICU DCP: PATIENT TO BE DISCHARGED TO HOME ONCE MEDICALLY CLEARED. 07/02/2019 SI:ACUTE GI BLEED T 98.3 HR 102 RR 19 B/P 119/56 SATS 100% ON MECH VENT FIO2 40 HGB 7.2 HCT 21.5 CL 115 BUN 34 GLU 136 CA 7 IS: OCTREOTIDE IV @ 50 MCG/HR PROTONIX 25 mL/HR IVF @ 75 mL/HR CEFTRIAXONE IV QD INSULIN ASPART SUBQ AC/HS NOREPINEPHRINE PER PARAMETERS ICU DCP: PATIENT TO BE DISCHARGED TO HOME ONCE MEDICALLY CLEARED.
[2019-07-02] MEDS ORDERED: Lidocaine 1% Plain 30 ml INJ PRN (18:45)
[2019-07-02] MEDS ORDERED: Heparin1,000 units/500ml Premix(Conc:2 units/ml) IV PRN (18:45)
--- NOTE | 2019-07-02 19:30 | NUR ---
NURSE NOTES: Received pt in no acute distress. Opens eyes to voice, follow commands. Orally intubated with #8 ETT placed over right lip at 22cm. Noted vent settings of AC16 TV 550 fiO2 .40 no peep and saturating 100%. Pt has thick copious secretions via ETT. Chest sounds with scattered rhonchi. NSr on the scope, afebrile, Bp stable. Currently denies pain. 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 Sclera [id number], mildly jaundiced. Abdomen large,ascitic. Remains NPO. No black tarry stool. FC patent, urine dark markus. [place] soft wrist restraints on. Left femoral TLC intact, Sandostatin gtt continues at 50mcg/h, main IVF of 1/2NS at 75ml/h.Family at bedside, plan of care explained. Will continue to monitor.
[2019-07-02] MEDS: Dyna-Hex 2% Top Sol 2oz TOPIC SCH (20:57)
[2019-07-02] MEDS ORDERED: Pantoprazole Inj IVP SCH (21:00)
--- NOTE | 2019-07-02 21:00 | NUR ---
NURSE NOTES: Had 1 small amt of semi liquid burgundy colored stool. No hematemesis. Advised family that they can only apply moist swabs to lips as pt keeps asking for water. VSS.
--- NOTE | 2019-07-02 22:20 | General Progress Note ---
Assessment/Plan Status: stable Assessment/Plan: Assessment/Plan Status: stable Assessment/Plan: 69-year-old female with past medical history of liver cirrhosis without known etiology presents for hematemesis #Hypovolemic shock secondary to hematemesis- resolved off pressors -ivf's -s/p PRBC, platelet transfusion -GI consult, appreciate recs: EGD 06/29/2019, esophageal varices x7 banding. Blood in abdomen. A limited however no active bleeding noted -Continue to monitor Hb, noted decreased from 8.2 to 7.2 today. PRBC if < 7 or if acute bleed with Hb < 8 -Surgery consult, appreciate recs -Trend lactate -s/p levofed and need to try to wean OFF pressors -Cardiology consult, appreciate recs -Echo: ef wnl #Intubation for airway protection and now with encephalopathy -Pulmonology consult, appreciate recs -After EGD if bleeding is controlled, Ventilator weaning trial -RT -Vent settings: FiO2 40% - UNABLE to wean OFF as of today, #Worsening leukocytosis, continue to monitor POSITIVE C. difficile. Started on flagyl 07/01 and ID consultation appreciated. Antibiotics adjusted as needed. #Urinary retention -Straight cath with 500 cc -Continue Rouse -Monitor ins and outs -UA negative #Liver cirrhosis with esophageal varices -Status post EGD as above -Ascites present, continue Rocephin, Flagyl -Protonix 40 mg IV twice daily. Famotidine added by GI -Octreotide drip, for 72 hours -Monitor CBC and BMP -Patient denies alcohol use, family states reason for liver cirrhosis is unknown. Differentials include Saunders versus autoimmune causes -Autoimmune work-up, can be deferred -Hepatitis panel pending -Follow-up work-up pending -Right upper quadrant ultrasound: Reviewed -Continue lactulose -CEA normal #Hepatic encephalopathy -Continue lactulose as per above #Elevated troponin, likely secondary to demand ischemia -Cardiology consulted, appreciate recs -Echo: Within normal limits -Troponins downtrended. #Lactic acidosis, improving -Secondary to #1 The time of my note may not reflect the time of my patient encounter. 45 minutes of critical time spent. This includes interpretation of charting, vitals, labs, imaging, exam. Subjective ROS Limited/Unobtainable: Yes Allergies: Coded Allergies: No Known Allergies (Unverified , 06/27/19) Objective Last 24 Hour Vital Signs Date Time Temp Pulse Resp B/P (MAP) Pulse Ox O2 Delivery O2 Flow Rate FiO2 07/02/19 21:01 94 17 100 Mechanical Ventilator 40 85 16 40 40 07/02/19 21:00 94 17 126/64 (84) 100 07/02/19 20:00 88 07/02/19 20:00 Mechanical Ventilator 07/02/19 20:00 98.7 92 16 99/58 (72) 100 07/02/19 20:00 40 07/02/19 19:12 94 17 100 Mechanical Ventilator 40 85 16 40 40 07/02/19 19:00 92 16 113/55 (74) 100 07/02/19 18:00 85 16 110/54 (72) 100 07/02/19 17:10 85 16 40 07/02/19 17:00 84 31 102/48 (66) 100 07/02/19 16:12 90 16 40 07/02/19 16:00 97.8 90 17 106/55 (72) 100 07/02/19 16:00 86 07/02/19 16:00 40 07/02/19 16:00 Mechanical Ventilator 07/02/19 15:00 88 16 103/52 (69) 100 07/02/19 14:00 93 16 115/44 (67) 100 07/02/19 13:00 90 16 100/55 (70) 100 07/02/19 12:36 90 16 40 07/02/19 12:00 98.1 93 18 95/45 (62) 100 07/02/19 12:00 40 07/02/19 12:00 Mechanical Ventilator 07/02/19 11:59 96 07/02/19 11:26 94 20 40 07/02/19 11:00 96 16 106/51 (69) 100 07/02/19 10:30 107/46 07/02/19 10:00 97 24 107/46 (66) 100 07/02/19 09:02 96 21 40 40 07/02/19 09:02 100 07/02/19 09:00 101 22 117/50 (72) 99 07/02/19 08:00 98.3 102 19 119/56 (77) 100 07/02/19 08:00 96 07/02/19 08:00 Mechanical Ventilator 8/26/19 07:53 40 07/02/19 07:05 96 19 40 40 07/02/19 07:00 99 18 118/60 (79) 100 07/02/19 06:00 105 18 114/43 (66) 100 07/02/19 05:18 106 17 40 07/02/19 05:00 102 18 114/43 (66) 100 07/02/19 04:00 93 18 101/51 (68) 100 07/02/19 04:00 40 07/02/19 04:00 Mechanical Ventilator 07/02/19 04:00 95 07/02/19 03:57 102 16 40 07/02/19 03:00 109 18 100/54 (69) 100 07/02/19 02:00 109 18 123/54 (77) 100 07/02/19 01:05 103 16 40 07/02/19 01:00 100 18 130/60 (83) 100 07/02/19 00:00 Mechanical Ventilator 07/02/19 00:00 91 07/02/19 00:00 110 18 132/62 (85) 100 07/01/19 23:15 111 20 40 07/01/19 23:00 99 18 104/51 (68) 100 Intake and Output 07/01/19 07/02/19 18:59 06:59 Intake Total 1558 ml 1300 ml Output Total 545 ml 670 ml Balance 1013 ml 630 ml Intake Oral 0 ml IV Total 1478 ml 1300 ml Other 80 ml Output Urine Total 545 ml 670 ml # Bowel Movements 2 2 Laboratory Tests 07/02/19 04:00: White Blood Count 5.9, Red Blood Count 2.29L, Hemoglobin 7.2L, Hematocrit 21.5L , Mean Corpuscular Volume 94, Mean Corpuscular Hemoglobin 31.5H, Mean Corpuscular Hemoglobin Concent 33.5, Red Cell Distribution Width 18.6H, Platelet Count 46L, Mean Platelet Volume 8.4, Neutrophils (%) (Auto) , Lymphocytes (%) (Auto) , Monocytes (%) (Auto) , Eosinophils (%) (Auto) , Basophils (%) (Auto) , Sodium Level 141, Potassium Level 3.8, Chloride Level 115H, Carbon Dioxide Level 20L, Anion Gap 6, Blood Urea Nitrogen 34H, Creatinine 0.8, Estimat Glomerular Filtration Rate > 60, Glucose Level 136H, Calcium Level 7.0L Height (Feet): 5 Height (Inches): 2.00 Weight (Pounds): 137 General Appearance: moderate distress Cardiovascular: normal rate Respiratory/Chest: lungs clear Abdomen: hypoactive bowel sounds Genitourinary/Rectal: normal rectal exam Extremities: non-tender Neurologic: communication specialist II-XII grossly normal, no motor/sensory deficits Yue Hunter MD Jul 02, 2019 22:20
--- NOTE | 2019-07-02 23:00 | NUR ---
NURSE NOTES: Family remains at the bedside. Pt opens eyes sponatenously but still remains restrained. ETT secretions copious yellow; urine dark tea colored,no bleeding noted
[2019-07-03] VITALS (25 sets, daily range): BP systolic 98–129; BP diastolic 44–67
--- NOTE | 2019-07-03 | NUR ---
NURSE NOTES: Vancomycin 0.5gm enema given. Unsure if pt retains the med since pt cannot hold it in. Afebrile, NSR, BP stable. Moistened lip with mouth moisturizer
[2019-07-03] MEDS: Octreotide Acetate 500 MCG in Sodium Chloride 499 ML IV SCH ×2 (01:45→10:34)
--- NOTE | 2019-07-03 02:00 | NUR ---
NURSE NOTES: Sleeping, VSS, no distress.
--- NOTE | 2019-07-03 04:30 | NUR ---
NURSE NOTES: No further BM. Complete bed bath done and linen changed. Left femoral TLC dressing reinforced. Pt for PICC line insertion today. No hematemesis; no melanotic stools. Afebrile, denies pain. Abd still distended with hypoactive Bowel sound. No fever, refuses to be covered. VSS
[2019-07-03 04:57] LABS: INR 1.5 (0.9-1.1)
[2019-07-03 04:59] LABS: HEMATOCRIT 26.9 % (37.0-47.0); HEMOGLOBIN 8.9 G/DL (12.0-16.0); MEAN CORPUSCULAR VOLUME 93 FL (80-99); PLATELET COUNT 57 K/UL (150-450); RED BLOOD COUNT 2.88 M/UL (4.20-5.40); WHITE BLOOD COUNT 7.1 K/UL (4.8-10.8)
[2019-07-03 05:15] LABS: ALANINE AMINOTRANSFERASE 361 U/L (12-78); ALBUMIN 1.6 G/DL (3.4-5.0); ALBUMIN/GLOBULIN RATIO 0.6 (1.0-2.7); ALKALINE PHOSPHATASE 129 U/L (46-116); ANION GAP 10 mmol/L (5-15); ASPARTATE AMINO TRANSFERASE 105 U/L (15-37); BILIRUBIN,TOTAL 3.5 MG/DL (0.2-1.0); BLOOD UREA NITROGEN 32 mg/dL (7-18); CALCIUM 7.2 MG/DL (8.5-10.1); CARBON DIOXIDE 19 MMOL/L (21-32); CHLORIDE 115 MMOL/L (98-107); CREATININE 0.7 MG/DL (0.55-1.30); POTASSIUM 3.9 MMOL/L (3.5-5.1); SODIUM 144 MMOL/L (136-145)
[2019-07-03] MEDS: VANCOMYCIN IRRIG SCH ×3 (05:34→16:56)
[2019-07-03] MEDS: NovoLOG Insulin Flexpen SUBQ SCH ×4 (05:34→21:00)
[2019-07-03] MEDS: SODIUM CHLORIDE IRRIG SCH ×3 (05:34→16:56)
[2019-07-03 05:41] LABS: BILIRUBIN,DIRECT 1.5 MG/DL (0.0-0.3)
--- NOTE | 2019-07-03 06:18 | NUR ---
NURSE NOTES: Awake, alert, oriented,denies pain. Accucheck 120; coverage held; pt NPO
--- NOTE | 2019-07-03 07:10 | NUR ---
HAND-OFF: Report given to Humphrey Marmolejo RN.
--- NOTE | 2019-07-03 07:46 | NUR ---
NURSE NOTES: Report received from Gallo HOYOS. Pt alert and oriented x 2-3, wolof speaking and able to follow simple commands. Pt on desk monitor, SR. Pt orally intubated, ETT 8, 20 cm lipline, Ac 16, TV 550, 40%, PEEP 0. Pt kept NPO for now . Rouse noted and intact, tea colored urine. Left femoral TLC noted and intact. Sandostatin running at 50 mcg/hr and 1/2NS@75 cc/hr. Bilateral soft wrist restraints noted and intact. Safety measures in place with bed locked and in lowest position, side rails x3 up and bed alarm on. Will continue to monitor and continue plan of care.
[2019-07-03] MEDS: cefTRIAXone 1 GM in NS 55 ML IVPB SCH (08:30)
--- NOTE | 2019-07-03 09:26 | NUR ---
RADIOLOGY DEPT., CHEST X-RAY DONE.-P.DYE
--- NOTE | 2019-07-03 09:47 | NUR ---
NURSE NOTES: PICC line placed on TIANNA. No acute distress. Will continue to monitor.
--- NOTE | 2019-07-03 10:03 | NUR ---
RADIOLOGY NOTE: RIGHT UPPER EXTREMITY PICC PLACED.
--- NOTE | 2019-07-03 10:05 | NUR ---
RESPIRATORY NOTE: Pt placed on CPAP PS 8. SaO2 100%, HR 94. No respiratory distress noted. Will continue to monitor. ROMAIN cortez.
[2019-07-03] MEDS ORDERED: Tubing IV Secondary IV ONE (10:11)
[2019-07-03] MEDS ORDERED: NS 275ml ONE (10:11)
[2019-07-03] MEDS ORDERED: 1/2 NS 1000ml IV ONE (10:11)
[2019-07-03] MEDS ORDERED: D5W 275ml ONE (10:11)
--- NOTE | 2019-07-03 10:45 | Diagnostic Imaging Report ---
Indication: Dyspnea Technique: One view of the chest Comparison: 06/30/2019 Findings: There is increasing bilateral basilar and right perihilar atelectasis. There may be some consolidation developing at the right lung base as well. No definite effusions. Stable satisfactory position of endotracheal tube Impression: New/increased bilateral basilar atelectatic changes and possible right basilar consolidation, over 3 days Other findings as noted
--- NOTE | 2019-07-03 10:57 | Infectious Diseases Prog Note ---
Assessment/Plan Assessment/Plan ASSESSMENT AND PLAN: 1. mrsa pna, sepsis, shock, c.diff. +, leukocytosis, fevers, respiratory failure , ? sbp - vancomycin, rocephin, iv flagyl, po vancomycin - f/u on labs, chest x-ray. paracentesis as indicated - icu supportive care, wean, remove femoral line - d/w RN 2. GI bleed. 3. Anemia. 4. H. pylori infection. 5. Diabetes. 6. Esophageal varices. 7. Respiratory failure. 8. Anemia and thrombocytopenia. 9. Liver cirrhosis. 10. Continue treatment per primary consultants. 11. No known drug allergies. 12. Social history is negative. 13. Family history is noncontributory. 14. MAR was noted. 15. Case was discussed with RN. 16. Case was discussed with Dr. Hunter Subjective Constitutional: Denies: fever HEENT: Denies: congestion Respiratory: Denies: shortness of breath Cardiovascular: Denies: chest pain Gastrointestinal/Abdominal: Denies: nausea, vomiting, diarrhea Genitourinary: Reports: other - + jackson Neurologic: Reports: weakness, other - more alert Psychiatric: Denies: depression Skin: Denies: rash Hematologic: Denies: bleeding Musculoskeletal: Denies: pain Allergies: Coded Allergies: No Known Allergies (Unverified , 06/27/19) Objective Vital Signs Last 24 Hour Vital Signs Date Time Temp Pulse Resp B/P (MAP) Pulse Ox O2 Delivery O2 Flow Rate FiO2 07/03/19 10:30 111/67 07/03/19 10:04 94 22 40 40 07/03/19 10:04 100 07/03/19 10:00 89 16 111/67 (82) 100 07/03/19 09:00 87 17 100/44 (62) 100 07/03/19 08:30 89 16 40 40 07/03/19 08:00 Mechanical Ventilator 07/03/19 08:00 40 07/03/19 08:00 85 07/03/19 08:00 98.2 86 18 105/55 (72) 100 07/03/19 07:00 84 16 40 40 07/03/19 07:00 82 16 98/47 (64) 100 07/03/19 06:00 84 16 101/46 (64) 100 07/03/19 05:30 88 26 109/51 (70) 100 07/03/19 05:07 87 16 40 40 07/03/19 05:00 85 16 103/53 (70) 100 07/03/19 04:00 87 07/03/19 04:00 98.4 91 16 108/56 (73) 100 07/03/19 04:00 Mechanical Ventilator 07/03/19 04:00 40 07/03/19 03:12 90 16 40 40 07/03/19 03:00 88 16 98/58 (71) 100 07/03/19 02:00 83 16 103/54 (70) 100 07/03/19 01:03 83 16 40 40 07/03/19 01:00 83 16 98/51 (67) 100 07/03/19 00:00 84 07/03/19 00:00 Mechanical Ventilator 07/03/19 00:00 98.5 84 16 105/51 (69) 100 07/03/19 00:00 40 07/02/19 23:00 84 19 100/47 (64) 100 07/02/19 22:54 85 16 40 40 07/02/19 22:00 94 17 119/58 (78) 100 07/02/19 21:01 94 17 100 Mechanical Ventilator 40 85 16 40 40 07/02/19 21:00 94 17 126/64 (84) 100 07/02/19 20:00 88 07/02/19 20:00 Mechanical Ventilator 07/02/19 20:00 98.7 92 16 99/58 (72) 100 07/02/19 20:00 40 07/02/19 19:12 94 17 100 Mechanical Ventilator 40 85 16 40 40 07/02/19 19:00 92 16 113/55 (74) 100 07/02/19 18:00 85 16 110/54 (72) 100 07/02/19 17:10 85 16 40 07/02/19 17:00 84 31 102/48 (66) 100 07/02/19 16:12 90 16 40 07/02/19 16:00 97.8 90 17 106/55 (72) 100 07/02/19 16:00 86 07/02/19 16:00 40 07/02/19 16:00 Mechanical Ventilator 07/02/19 15:00 88 16 103/52 (69) 100 07/02/19 14:00 93 16 115/44 (67) 100 8/26/19 13:00 90 16 100/55 (70) 100 07/02/19 12:36 90 16 40 07/02/19 12:00 98.1 93 18 95/45 (62) 100 07/02/19 12:00 40 07/02/19 12:00 Mechanical Ventilator 07/02/19 11:59 96 07/02/19 11:26 94 20 40 07/02/19 11:00 96 16 106/51 (69) 100 Height (Feet): 5 Height (Inches): 2.00 Weight (Pounds): 138 General Appearance: no acute distress HEENT: normocephalic, atraumatic, anicteric, mucous membranes moist Respiratory/Chest: crackles/rales, rhonchi - bilaterally Cardiovascular: normal rate, regular rhythm, no gallop/murmur, no JVD Abdomen: normal bowel sounds, no organomegaly, distended Genitourinary: other - + jackson - urine clear Extremities: no cyanosis Skin: no rash Neurologic/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 Endotracheal tube has been pulled back and is now 2 cm above the halima in good position. 2. Improved lung volumes. Mild increased vascular interstitial prominence. Abdominal US: Impression: Evidence of hepatic cirrhosis, with coarsened hepatic echogenicity and surface nodularity Evidence of portal hypertension, with ascites, hepatic hilar varices, and abnormal portal venous flow No gallstones. Gallbladder wall is markedly thickened. This is probably edema due to the hepatic abnormalities. Acalculous acute cholecystitis or cholecystitis secondary to occult stone disease excludable, and hepatobiliary nuclear scan could be considered if there is high clinical suspicion Left renal cyst Node inability to visualize the pancreas and portions of the abdominal aorta Microbiology Date/Time Source Procedure Growth Status 06/30/19 18:00 Sputum Induced Gram Stain - Final Complete 06/30/19 18:00 Sputum Culture - Final Staphylococcus Aureus - Mrsa Usual Respiratory Araceli Complete 06/30/19 14:50 Stool Clostridium difficile Toxin Assay - Final Complete Laboratory Tests Test 07/03/19 04:00 White Blood Count 7.1 K/UL (4.8-10.8) Red Blood Count 2.88 M/UL (4.20-5.40) L Hemoglobin 8.9 G/DL (12.0-16.0) L Hematocrit 26.9 % (37.0-47.0) L Mean Corpuscular Volume 93 FL (80-99) Mean Corpuscular Hemoglobin 31.1 PG (27.0-31.0) H Mean Corpuscular Hemoglobin Concent 33.3 G/DL (32.0-36.0) Red Cell Distribution Width 16.0 % (11.6-14.8) H Platelet Count 57 K/UL (150-450) L Mean Platelet Volume 8.1 FL (6.5-10.1) Neutrophils (%) (Auto) % (45.0-75.0) Lymphocytes (%) (Auto) % (20.0-45.0) Monocytes (%) (Auto) % (1.0-10.0) Eosinophils (%) (Auto) % (0.0-3.0) Basophils (%) (Auto) % (0.0-2.0) Differential Total Cells Counted 100 Neutrophils % (Manual) 92 % (45-75) H Lymphocytes % (Manual) 2 % (20-45) L Monocytes % (Manual) 5 % (1-10) Eosinophils % (Manual) 1 % (0-3) Basophils % (Manual) 0 % (0-2) Band Neutrophils 0 % (0-8) Platelet Estimate Decreased L Platelet Morphology Normal Prothrombin Time 15.2 SEC (9.30-11.50) H Prothromb Time International Ratio 1.5 (0.9-1.1) H Sodium Level 144 MMOL/L (136-145) Potassium Level 3.9 MMOL/L (3.5-5.1) Chloride Level 115 MMOL/L (98-107) H Carbon Dioxide Level 19 MMOL/L (21-32) L Anion Gap 10 mmol/L (5-15) Blood Urea Nitrogen 32 mg/dL (7-18) H Creatinine 0.7 MG/DL (0.55-1.30) Estimat Glomerular Filtration Rate > 60 mL/min (>60) Glucose Level 142 MG/DL (74-106) H Calcium Level 7.2 MG/DL (8.5-10.1) L Total Bilirubin 3.5 MG/DL (0.2-1.0) H Direct Bilirubin 1.5 MG/DL (0.0-0.3) H Aspartate Amino Transf (AST/SGOT) 105 U/L (15-37) H Alanine Aminotransferase (ALT/SGPT) 361 U/L (12-78) H Alkaline Phosphatase 129 U/L (46-116) H Total Protein 4.3 G/DL (6.4-8.2) L Albumin 1.6 G/DL (3.4-5.0) L Globulin 2.7 g/dL Albumin/Globulin Ratio 0.6 (1.0-2.7) L Current Medications Medications (Trade) Dose Ordered Sig/Naseem Route PRN Reason Start Time Stop Time Status Last Admin Dose Admin Ceftriaxone Sodium 1 gm/ Sodium Chloride 55 ml @ 110 mls/hr DAILY IVPB 06/30/19 09:00 07/05/19 08:59 07/03/19 08:30 Chlorhexidine Gluconate (Mer-Hex 2%) 1 applic DAILY@2000 TOPIC 07/02/19 20:00 08/01/19 19:59 07/02/19 20:57 Dextrose (Dextrose 50%) 25 ml Q30M PRN IV Hypoglycemia 06/28/19 05:00 07/28/19 04:59 Dextrose (Dextrose 50%) 50 ml Q30M PRN IV Hypoglycemia 06/28/19 05:00 07/28/19 04:59 Famotidine (Pepcid I.v.) 20 mg Q12HR IVP 07/02/19 21:00 08/01/19 20:59 07/03/19 08:30 Heparin Sodium/ Sodium Chloride (Heparin 1000 units/500ml Premix) 1,000 unit ONCE PRN IV PICC LINE 07/02/19 18:45 07/03/19 23:59 Insulin Aspart (NovoLOG) BEFORE MEALS AND HS SUBQ 06/28/19 06:30 07/28/19 06:29 07/01/19 17:00 Lidocaine HCl (Xylocaine 1% 30ml) 30 ml ONCE PRN INJ PICC LINE 07/02/19 18:45 07/03/19 23:59 Metronidazole 100 ml @ 100 mls/hr Q8HR IVPB 07/01/19 14:00 07/08/19 13:59 07/03/19 05:34 Morphine Sulfate (Morphine Sulfate) 2 mg Q4H PRN IVP For Pain 06/28/19 09:15 07/05/19 09:14 06/29/19 02:29 Norepinephrine Bitartrate 4 mg/ Dextrose 250 ml @ 0 mls/hr Q24H IV 06/28/19 10:30 07/28/19 10:29 06/30/19 23:32 Octreotide Acetate 500 mcg/ Sodium Chloride 500 ml @ 50 mls/hr Q10H IV 07/02/19 13:30 08/01/19 13:29 07/03/19 10:34 Ondansetron HCl (Zofran) 4 mg Q6H PRN IVP Nausea & Vomiting 06/28/19 16:30 07/28/19 16:29 06/28/19 22:07 Sodium Chloride 1,000 ml @ 75 mls/hr [id number] IV 06/28/19 05:00 07/28/19 04:59 07/03/19 08:29 Vancomycin HCl (Vanco rx to dose) 1 ea DAILY PRN MISC Per rx protocol 07/02/19 12:30 08/01/19 12:29 Vancomycin HCl 0.5 gm/Sodium Chloride 100 ml @ 0 mls/hr Q6HR IRRIG 07/01/19 18:00 07/06/19 17:59 07/03/19 05:34 Vancomycin HCl 750 mg/Sodium Chloride 275 ml @ 183.333 mls/hr Q24H IVPB 07/03/19 14:00 07/08/19 13:59 Jay Hurtado MD Jul 03, 2019 10:57
--- NOTE | 2019-07-03 10:58 | Diagnostic Imaging Report ---
Indications: Needs long-term IV access Technique: Procedure performed at bedside. Procedural timeout performed. Ultrasound confirms patent compressible right basilic vein. Total sterile technique, including sterile probe cover and sterile gel, sterile gloves, hand hygiene, hat, mask,, sterile gown, large sterile drape, and preparation with 2% chlorhexidine utilized. Local anesthesia with 1% lidocaine. Under real-time ultrasound guidance, puncture basilic vein using 21-gauge needle, passage 0.018 guidewire, exchange for 4 Chadian peel-away sheath. 4 Ch[place] Bard dual-lumen power PICC cut to 37 cm. It was inserted through the peel-away sheath. Peel-away sheath and guidewire removed. Catheter fixed to the skin. Both catheter ports aspirated and flushed. Patient tolerated procedure well, without immediate complication. Followup chest x-ray obtained, documents catheter tip position at the cavoatrial junction Impression: Successful bedside placement of right arm PICC under sonographic guidance, as described above.
--- NOTE | 2019-07-03 11:15 | NUR ---
RESPIRATORY NOTE: Per Dr Zeng, pt placed on T-bar 40%, 12LPM. SaO2 100%, HR 99. Pt stable. Will continue to monitor. ROMAIN cortez.
--- NOTE | 2019-07-03 11:18 | GI Progress Note ---
Assessment/Plan Problems: (1) Acute GI bleeding ICD Codes: K92.2 - Gastrointestinal hemorrhage, unspecified SNOMED: 36911202 (2) GI bleed ICD Codes: K92.2 - Gastrointestinal hemorrhage, unspecified SNOMED: 74124244 (3) Varices, esophageal ICD Codes: I85.00 - Esophageal varices without bleeding SNOMED: 88909895 (4) Cirrhosis ICD Codes: K74.60 - Unspecified cirrhosis of liver SNOMED: 52337526 Status: unchanged Status Narrative Discussed with Dr. Garcia. Assessment/Plan Assessment - Cirrhosis - UGIB due to esophageal varicies s/p banding - C Diff, on IV flagyl (no oral access for PO vanco at this time) - Resp failure - anemia - lactic acidosis - leukocytosis - guarded Recommendations - No NGT - serial CBC - transfuse PRN to keep Hg > 7>>> one unit today - keep NPO - H2B - decrease octreotide to 25cc/hr - IV abx - paracentesis ordered - pending possible extubation for today The patient was seen and examined at bedside and all new and available data was reviewed in the patients chart. I agree with the above findings, impression and plan. (Patient seen earlier today. Signature stamp does not reflect patient encounter time.). - Mina Garcia MD Subjective Gastrointestinal/Abdominal: Reports: no symptoms Objective Last 24 Hour Vital Signs Date Time Temp Pulse Resp B/P (MAP) Pulse Ox O2 Delivery O2 Flow Rate FiO2 07/03/19 11:00 99 22 116/52 (73) 99 07/03/19 10:30 111/67 07/03/19 10:04 94 22 40 40 07/03/19 10:04 100 07/03/19 10:00 89 16 111/67 (82) 100 07/03/19 09:00 87 17 100/44 (62) 100 07/03/19 08:30 89 16 40 40 07/03/19 08:00 Mechanical Ventilator 07/03/19 08:00 40 07/03/19 08:00 85 07/03/19 08:00 98.2 86 18 105/55 (72) 100 07/03/19 07:00 84 16 40 40 07/03/19 07:00 82 16 98/47 (64) 100 07/03/19 06:00 84 16 101/46 (64) 100 8/27/19 05:30 88 26 109/51 (70) 100 07/03/19 05:07 87 16 40 40 07/03/19 05:00 85 16 103/53 (70) 100 07/03/19 04:00 87 07/03/19 04:00 98.4 91 16 108/56 (73) 100 07/03/19 04:00 Mechanical Ventilator 07/03/19 04:00 40 07/03/19 03:12 90 16 40 40 07/03/19 03:00 88 16 98/58 (71) 100 07/03/19 02:00 83 16 103/54 (70) 100 07/03/19 01:03 83 16 40 40 07/03/19 01:00 83 16 98/51 (67) 100 07/03/19 00:00 84 07/03/19 00:00 Mechanical Ventilator 07/03/19 00:00 98.5 84 16 105/51 (69) 100 07/03/19 00:00 40 07/02/19 23:00 84 19 100/47 (64) 100 07/02/19 22:54 85 16 40 40 07/02/19 22:00 94 17 119/58 (78) 100 07/02/19 21:01 94 17 100 Mechanical Ventilator 40 85 16 40 40 07/02/19 21:00 94 17 126/64 (84) 100 07/02/19 20:00 88 07/02/19 20:00 Mechanical Ventilator 07/02/19 20:00 98.7 92 16 99/58 (72) 100 07/02/19 20:00 40 07/02/19 19:12 94 17 100 Mechanical Ventilator 40 85 16 40 40 07/02/19 19:00 92 16 113/55 (74) 100 07/02/19 18:00 85 16 110/54 (72) 100 07/02/19 17:10 85 16 40 07/02/19 17:00 84 31 102/48 (66) 100 07/02/19 16:12 90 16 40 07/02/19 16:00 97.8 90 17 106/55 (72) 100 07/02/19 16:00 86 07/02/19 16:00 40 07/02/19 16:00 Mechanical Ventilator 07/02/19 15:00 88 16 103/52 (69) 100 07/02/19 14:00 93 16 115/44 (67) 100 07/02/19 13:00 90 16 100/55 (70) 100 07/02/19 12:36 90 16 40 07/02/19 12:00 98.1 93 18 95/45 (62) 100 07/02/19 12:00 40 07/02/19 12:00 Mechanical Ventilator 07/02/19 11:59 96 07/02/19 11:26 94 20 40 Intake and Output 07/02/19 07/03/19 19:00 07:00 Intake Total 1744.85 ml 1575 ml Output Total 435 ml 525 ml Balance 1309.85 ml 1050 ml Intake Oral 0 ml 0 ml IV Total 1664.85 ml 1575 ml Other 80 ml Output Urine Total 435 ml 525 ml # Bowel Movements 4 Laboratory Tests Test 07/03/19 04:00 White Blood Count 7.1 K/UL (4.8-10.8) Red Blood Count 2.88 M/UL (4.20-5.40) L Hemoglobin 8.9 G/DL (12.0-16.0) L Hematocrit 26.9 % (37.0-47.0) L Mean Corpuscular Volume 93 FL (80-99) Mean Corpuscular Hemoglobin 31.1 PG (27.0-31.0) H Mean Corpuscular Hemoglobin Concent 33.3 G/DL (32.0-36.0) Red Cell Distribution Width 16.0 % (11.6-14.8) H Platelet Count 57 K/UL (150-450) L Mean Platelet Volume 8.1 FL (6.5-10.1) Neutrophils (%) (Auto) % (45.0-75.0) Lymphocytes (%) (Auto) % (20.0-45.0) Monocytes (%) (Auto) % (1.0-10.0) Eosinophils (%) (Auto) % (0.0-3.0) Basophils (%) (Auto) % (0.0-2.0) Differential Total Cells Counted 100 Neutrophils % (Manual) 92 % (45-75) H Lymphocytes % (Manual) 2 % (20-45) L Monocytes % (Manual) 5 % (1-10) Eosinophils % (Manual) 1 % (0-3) Basophils % (Manual) 0 % (0-2) Band Neutrophils 0 % (0-8) Platelet Estimate Decreased L Platelet Morphology Normal Prothrombin Time 15.2 SEC (9.30-11.50) H Prothromb Time International Ratio 1.5 (0.9-1.1) H Sodium Level 144 MMOL/L (136-145) Potassium Level 3.9 MMOL/L (3.5-5.1) Chloride Level 115 MMOL/L (98-107) H Carbon Dioxide Level 19 MMOL/L (21-32) L Anion Gap 10 mmol/L (5-15) Blood Urea Nitrogen 32 mg/dL (7-18) H Creatinine 0.7 MG/DL (0.55-1.30) Estimat Glomerular Filtration Rate > 60 mL/min (>60) Glucose Level 142 MG/DL (74-106) H Calcium Level 7.2 MG/DL (8.5-10.1) L Total Bilirubin 3.5 MG/DL (0.2-1.0) H Direct Bilirubin 1.5 MG/DL (0.0-0.3) H Aspartate Amino Transf (AST/SGOT) 105 U/L (15-37) H Alanine Aminotransferase (ALT/SGPT) 361 U/L (12-78) H Alkaline Phosphatase 129 U/L (46-116) H Total Protein 4.3 G/DL (6.4-8.2) L Albumin 1.6 G/DL (3.4-5.0) L Globulin 2.7 g/dL Albumin/Globulin Ratio 0.6 (1.0-2.7) L Height (Feet): 5 Height (Inches): 2.00 Weight (Pounds): 138 General Appearance: no apparent distress Cardiovascular: normal rate Respiratory/Chest: normal breath sounds, no respiratory distress Abdominal Exam: normal bowel sounds, non tender, soft Extremities: non-tender Luisana Walker B[employer]LING BALL ENGRAVER Jul 03, 2019 11:18
--- NOTE | 2019-07-03 11:23 | NUR ---
NURSE NOTES: Dr Zeng here to assess pt. Pt placed on t bar per Dr Zeng's order. ABG to be checked in 1 hour. VSS. Will continue to monitor.
[2019-07-03] MEDS ORDERED: Octreotide Acetate 500 MCG in Sodium Chloride 499 ML IV SCH (12:27)
--- NOTE | 2019-07-03 12:28 | Pulmonology Progress Note ---
Assessment/Plan Assessment/Plan IMPRESSION: 1. Respiratory failure. Will continue to wean. Trim ETT 2. Upper GI bleed, likely gastric varices. S/p EGD 3. Diabetes mellitus. 4. Anemia. Hgb stable 5. Thrombocytopenia; 6. Likely hepatic encephalopathy; continue lactulose; has C diff + DISCUSSION: Continue IV fluids. Continue Protonix and octreotide. Maintain vent; continue weaning. Continue lactulose Abx for C diff Hope to extubate today James Zeng M.D. Subjective Interval Events: Doing much better; awake and responsive Constitutional: Reports: no symptoms HEENT: Repors: no symptoms Respiratory: Reports: no symptoms Cardiovascular: Reports: no symptoms Gastrointestinal/Abdominal: Reports: no symptoms Genitourinary: Reports: no symptoms Neurologic: Reports: no symptoms Allergies: Coded Allergies: No Known Allergies (Unverified , 06/27/19) Objective Last 24 Hour Vital Signs Date Time Temp Pulse Resp B/P (MAP) Pulse Ox O2 Delivery O2 Flow Rate FiO2 07/03/19 11:15 106 24 40 07/03/19 11:00 99 22 116/52 (73) 99 07/03/19 10:30 111/67 07/03/19 10:04 94 22 40 40 07/03/19 10:04 100 07/03/19 10:00 89 16 111/67 (82) 100 07/03/19 09:00 87 17 100/44 (62) 100 07/03/19 08:30 89 16 40 40 07/03/19 08:00 Mechanical Ventilator 07/03/19 08:00 40 07/03/19 08:00 85 07/03/19 08:00 98.2 86 18 105/55 (72) 100 07/03/19 07:00 84 16 40 40 07/03/19 07:00 82 16 98/47 (64) 100 07/03/19 06:00 84 16 101/46 (64) 100 07/03/19 05:30 88 26 109/51 (70) 100 07/03/19 05:07 87 16 40 40 07/03/19 05:00 85 16 103/53 (70) 100 8/27/19 04:00 87 07/03/19 04:00 98.4 91 16 108/56 (73) 100 07/03/19 04:00 Mechanical Ventilator 07/03/19 04:00 40 07/03/19 03:12 90 16 40 40 07/03/19 03:00 88 16 98/58 (71) 100 07/03/19 02:00 83 16 103/54 (70) 100 07/03/19 01:03 83 16 40 40 07/03/19 01:00 83 16 98/51 (67) 100 07/03/19 00:00 84 07/03/19 00:00 Mechanical Ventilator 07/03/19 00:00 98.5 84 16 105/51 (69) 100 07/03/19 00:00 40 07/02/19 23:00 84 19 100/47 (64) 100 07/02/19 22:54 85 16 40 40 07/02/19 22:00 94 17 119/58 (78) 100 07/02/19 21:01 94 17 100 Mechanical Ventilator 40 85 16 40 40 07/02/19 21:00 94 17 126/64 (84) 100 07/02/19 20:00 88 07/02/19 20:00 Mechanical Ventilator 07/02/19 20:00 98.7 92 16 99/58 (72) 100 07/02/19 20:00 40 07/02/19 19:12 94 17 100 Mechanical Ventilator 40 85 16 40 40 07/02/19 19:00 92 16 113/55 (74) 100 07/02/19 18:00 85 16 110/54 (72) 100 07/02/19 17:10 85 16 40 07/02/19 17:00 84 31 102/48 (66) 100 07/02/19 16:12 90 16 40 07/02/19 16:00 97.8 90 17 106/55 (72) 100 07/02/19 16:00 86 07/02/19 16:00 40 07/02/19 16:00 Mechanical Ventilator 07/02/19 15:00 88 16 103/52 (69) 100 07/02/19 14:00 93 16 115/44 (67) 100 07/02/19 13:00 90 16 100/55 (70) 100 07/02/19 12:36 90 16 40 Intake and Output 07/02/19 07/03/19 19:00 07:00 Intake Total 1744.85 ml 1575 ml Output Total 435 ml 525 ml Balance 1309.85 ml 1050 ml Intake Oral 0 ml 0 ml IV Total 1664.85 ml 1575 ml Other 80 ml Output Urine Total 435 ml 525 ml # Bowel Movements 4 General Appearance: no acute distress HEENT: normocephalic Respiratory/Chest: chest wall non-tender, lungs clear Cardiovascular: normal peripheral pulses, normal rate Abdomen: normal bowel sounds Microbiology Date/Time Source Procedure Growth Status 06/30/19 18:00 Sputum Induced Gram Stain - Final Complete 06/30/19 18:00 Sputum Culture - Final Staphylococcus Aureus - Mrsa Usual Respiratory Araceli Complete 06/30/19 14:50 Stool Clostridium difficile Toxin Assay - Final Complete Laboratory Tests 07/03/19 04:00: White Blood Count 7.1, Red Blood Count 2.88L, Hemoglobin 8.9L, Hematocrit 26.9L , Mean Corpuscular Volume 93, Mean Corpuscular Hemoglobin 31.1H, Mean Corpuscular Hemoglobin Concent 33.3, Red Cell Distribution Width 16.0H, Platelet Count 57L, Mean Platelet Volume 8.1, Neutrophils (%) (Auto) , Lymphocytes (%) (Auto) , Monocytes (%) (Auto) , Eosinophils (%) (Auto) , Basophils (%) (Auto) , Differential Total Cells Counted 100, Neutrophils % ( Manual) 92H, Lymphocytes % (Manual) 2L, Monocytes % (Manual) 5, Eosinophils % ( Manual) 1, Basophils % (Manual) 0, Band Neutrophils 0, Platelet Estimate DecreasedL, Platelet Morphology Normal, Prothrombin Time 15.2H, Prothromb Time International Ratio 1.5H, Sodium Level 144, Potassium Level 3.9, Chloride Level 115H, Carbon Dioxide Level 19L, Anion Gap 10, Blood Urea Nitrogen 32H, Creatinine 0.7, Estimat Glomerular Filtration Rate > 60, Glucose Level 142H, Calcium Level 7.2L, Total Bilirubin 3.5H, Direct Bilirubin 1.5H, Aspartate Amino Transf (AST/SGOT) 105H, Alanine Aminotransferase (ALT/SGPT) 361H, Alkaline Phosphatase 129H, Total Protein 4.3L, Albumin 1.6L, Globulin 2.7, Albumin/Globulin Ratio 0.6L Current Medications Medications (Trade) Dose Ordered Sig/Naseem Route PRN Reason Start Time Stop Time Status Last Admin Dose Admin Ceftriaxone Sodium 1 gm/ Sodium Chloride 55 ml @ 110 mls/hr DAILY IVPB 07/04/19 09:00 07/09/19 08:59 Chlorhexidine Gluconate (Mer-Hex 2%) 1 applic DAILY@2000 TOPIC 07/02/19 20:00 08/01/19 19:59 07/02/19 20:57 Dextrose (Dextrose 50%) 25 ml Q30M PRN IV Hypoglycemia 06/28/19 05:00 07/28/19 04:59 Dextrose (Dextrose 50%) 50 ml Q30M PRN IV Hypoglycemia 06/28/19 05:00 07/28/19 04:59 Famotidine (Pepcid I.v.) 20 mg Q12HR IVP 07/02/19 21:00 08/01/19 20:59 07/03/19 08:30 Heparin Sodium/ Sodium Chloride (Heparin 1000 units/500ml Premix) 1,000 unit ONCE PRN IV PICC LINE 07/02/19 18:45 07/03/19 23:59 Insulin Aspart (NovoLOG) BEFORE MEALS AND HS SUBQ 06/28/19 06:30 07/28/19 06:29 07/01/19 17:00 Lidocaine HCl (Xylocaine 1% 30ml) 30 ml ONCE PRN INJ PICC LINE 07/02/19 18:45 07/03/19 23:59 Metronidazole 100 ml @ 100 mls/hr Q8HR IVPB 07/01/19 14:00 07/08/19 13:59 07/03/19 05:34 Morphine Sulfate (Morphine Sulfate) 2 mg Q4H PRN IVP For Pain 06/28/19 09:15 07/05/19 09:14 06/29/19 02:29 Norepinephrine Bitartrate 4 mg/ Dextrose 250 ml @ 0 mls/hr Q24H IV 06/28/19 10:30 07/28/19 10:29 06/30/19 23:32 Octreotide Acetate 500 mcg/ Sodium Chloride 500 ml @ 25 mls/hr Q20H IV 07/04/19 02:00 08/03/19 01:59 Ondansetron HCl (Zofran) 4 mg Q6H PRN IVP Nausea & Vomiting 06/28/19 16:30 07/28/19 16:29 06/28/19 22:07 Sodium Chloride 1,000 ml @ 75 mls/hr [id number] IV 06/28/19 05:00 07/28/19 04:59 07/03/19 08:29 Vancomycin HCl (Vanco rx to dose) 1 ea DAILY PRN MISC Per rx protocol 07/02/19 12:30 08/01/19 12:29 Vancomycin HCl 0.5 gm/Sodium Chloride 100 ml @ 0 mls/hr Q6HR IRRIG 07/01/19 18:00 07/06/19 17:59 07/03/19 05:34 Vancomycin HCl 750 mg/Sodium Chloride 275 ml @ 183.333 mls/hr Q24H IVPB 07/03/19 14:00 07/08/19 13:59 James Zeng MD Jul 03, 2019 12:28
--- NOTE | 2019-07-03 12:34 | NUR ---
*--* INSURANCE *--* UPDATED CLINICALS AND REVIEWS HAVE BEEN FAXED TO: [facility] DELEGATED TO [facility] F/S FAXED TO [facility] NCM: AKUA P- [phone] F- [phone]...........REVIEW/ CLINICAL
--- NOTE | 2019-07-03 12:51 | General Progress Note ---
Assessment/Plan Status: stable, unchanged Assessment/Plan: Assessment/Plan Status: stable Assessment/Plan: 69-year-old female with past medical history of liver cirrhosis without known etiology presents for hematemesis #Hypovolemic shock secondary to hematemesis- resolved off pressors -ivf's -s/p PRBC, platelet transfusion -GI consult, appreciate recs: EGD 06/29/2019, esophageal varices x7 banding. Blood in abdomen. A limited however no active bleeding noted -Continue to monitor Hb, noted decreased from 8.2 to 7.2 today. PRBC if < 7 or if acute bleed with Hb < 8 -Surgery consult, appreciate recs -Trend lactate -s/p levofed -Cardiology consult, appreciate recs -Echo: ef wnl #Intubation for airway protection and now with encephalopathy -Pulmonology consult, appreciate recs -After EGD if bleeding is controlled, Ventilator weaning trial and possibly extubation today -RT -Vent settings: FiO2 40% #Worsening leukocytosis, continue to monitor POSITIVE C. difficile. Started on flagyl 07/01 and ID consultation appreciated. Antibiotics adjusted as needed. #Urinary retention -Straight cath with 500 cc -Continue Rouse -Monitor ins and outs -UA negative #Liver cirrhosis with esophageal varices -Status post EGD as above -Ascites present, continue Rocephin, Flagyl -Protonix 40 mg IV twice daily. Famotidine added by GI -Octreotide drip, for 72 hours -Monitor CBC and BMP -Patient denies alcohol use, family states reason for liver cirrhosis is unknown. Differentials include Saunders versus autoimmune causes -Autoimmune work-up, can be deferred -Hepatitis panel pending -Right upper quadrant ultrasound: Reviewed -Continue lactulose -CEA normal #Hepatic encephalopathy -Continue lactulose as per above #Elevated troponin, likely secondary to demand ischemia -Cardiology consulted, appreciate recs -Echo: Within normal limits -Troponins downtrended. #Lactic acidosis, improving -Secondary to #1 The time of my note may not reflect the time of my patient encounter. 45 minutes of critical time spent. This includes interpretation of charting, vitals, labs, imaging, exam. Subjective Allergies: Coded Allergies: No Known Allergies (Unverified , 06/27/19) All Systems: reviewed and negative except above Objective Last 24 Hour Vital Signs Date Time Temp Pulse Resp B/P (MAP) Pulse Ox O2 Delivery O2 Flow Rate FiO2 8/27/19 11:15 106 24 40 07/03/19 11:00 99 22 116/52 (73) 99 07/03/19 10:30 111/67 07/03/19 10:04 94 22 40 40 07/03/19 10:04 100 07/03/19 10:00 89 16 111/67 (82) 100 07/03/19 09:00 87 17 100/44 (62) 100 07/03/19 08:30 89 16 40 40 07/03/19 08:00 Mechanical Ventilator 07/03/19 08:00 40 07/03/19 08:00 85 07/03/19 08:00 98.2 86 18 105/55 (72) 100 07/03/19 07:00 84 16 40 40 07/03/19 07:00 82 16 98/47 (64) 100 07/03/19 06:00 84 16 101/46 (64) 100 07/03/19 05:30 88 26 109/51 (70) 100 07/03/19 05:07 87 16 40 40 07/03/19 05:00 85 16 103/53 (70) 100 07/03/19 04:00 87 07/03/19 04:00 98.4 91 16 108/56 (73) 100 07/03/19 04:00 Mechanical Ventilator 07/03/19 04:00 40 07/03/19 03:12 90 16 40 40 07/03/19 03:00 88 16 98/58 (71) 100 07/03/19 02:00 83 16 103/54 (70) 100 07/03/19 01:03 83 16 40 40 07/03/19 01:00 83 16 98/51 (67) 100 07/03/19 00:00 84 07/03/19 00:00 Mechanical Ventilator 07/03/19 00:00 98.5 84 16 105/51 (69) 100 07/03/19 00:00 40 07/02/19 23:00 84 19 100/47 (64) 100 07/02/19 22:54 85 16 40 40 07/02/19 22:00 94 17 119/58 (78) 100 07/02/19 21:01 94 17 100 Mechanical Ventilator 40 85 16 40 40 07/02/19 21:00 94 17 126/64 (84) 100 07/02/19 20:00 88 07/02/19 20:00 Mechanical Ventilator 07/02/19 20:00 98.7 92 16 99/58 (72) 100 07/02/19 20:00 40 07/02/19 19:12 94 17 100 Mechanical Ventilator 40 85 16 40 40 07/02/19 19:00 92 16 113/55 (74) 100 07/02/19 18:00 85 16 110/54 (72) 100 07/02/19 17:10 85 16 40 07/02/19 17:00 84 31 102/48 (66) 100 07/02/19 16:12 90 16 40 07/02/19 16:00 97.8 90 17 106/55 (72) 100 07/02/19 16:00 86 07/02/19 16:00 40 07/02/19 16:00 Mechanical Ventilator 07/02/19 15:00 88 16 103/52 (69) 100 07/02/19 14:00 93 16 115/44 (67) 100 07/02/19 13:00 90 16 100/55 (70) 100 Intake and Output 07/02/19 07/03/19 19:00 07:00 Intake Total 1744.85 ml 1575 ml Output Total 435 ml 525 ml Balance 1309.85 ml 1050 ml Intake Oral 0 ml 0 ml IV Total 1664.85 ml 1575 ml Other 80 ml Output Urine Total 435 ml 525 ml # Bowel Movements 4 Laboratory Tests 07/03/19 04:00: White Blood Count 7.1, Red Blood Count 2.88L, Hemoglobin 8.9L, Hematocrit 26.9L , Mean Corpuscular Volume 93, Mean Corpuscular Hemoglobin 31.1H, Mean Corpuscular Hemoglobin Concent 33.3, Red Cell Distribution Width 16.0H, Platelet Count 57L, Mean Platelet Volume 8.1, Neutrophils (%) (Auto) , Lymphocytes (%) (Auto) , Monocytes (%) (Auto) , Eosinophils (%) (Auto) , Basophils (%) (Auto) , Differential Total Cells Counted 100, Neutrophils % ( Manual) 92H, Lymphocytes % (Manual) 2L, Monocytes % (Manual) 5, Eosinophils % ( Manual) 1, Basophils % (Manual) 0, Band Neutrophils 0, Platelet Estimate DecreasedL, Platelet Morphology Normal, Prothrombin Time 15.2H, Prothromb Time International Ratio 1.5H, Sodium Level 144, Potassium Level 3.9, Chloride Level 115H, Carbon Dioxide Level 19L, Anion Gap 10, Blood Urea Nitrogen 32H, Creatinine 0.7, Estimat Glomerular Filtration Rate > 60, Glucose Level 142H, Calcium Level 7.2L, Total Bilirubin 3.5H, Direct Bilirubin 1.5H, Aspartate Amino Transf (AST/SGOT) 105H, Alanine Aminotransferase (ALT/SGPT) 361H, Alkaline Phosphatase 129H, Total Protein 4.3L, Albumin 1.6L, Globulin 2.7, Albumin/Globulin Ratio 0.6L 07/03/19 12:25: Arterial Blood pH 7.371, Arterial Blood Partial Pressure CO2 29.4L, Arterial Blood Partial Pressure O2 78.9, Arterial Blood HCO3 16.7*L, Arterial Blood Oxygen Saturation 95.1, Arterial Blood Base Excess -7.5L, James Test Positive Height (Feet): 5 Height (Inches): 2.00 Weight (Pounds): 138 General Appearance: moderate distress EENT: PERRL/EOMI Respiratory/Chest: lungs clear Abdomen: non tender Neurologic: trial paralegal II-XII grossly normal Yue Hunter MD Jul 03, 2019 12:51
--- NOTE | 2019-07-03 13:35 | Surgery Progress Note ---
Surgery Progress Note Subjective Additional Comments no acute events exam unchanged not currently actively bleeding on vents upport awake and responsive Objective Last 24 Hour Vital Signs Date Time Temp Pulse Resp B/P (MAP) Pulse Ox O2 Delivery O2 Flow Rate FiO2 07/03/19 13:00 102 20 129/60 (83) 100 07/03/19 12:00 98.3 98 22 116/57 (76) 99 07/03/19 12:00 102 07/03/19 12:00 Mechanical Ventilator 07/03/19 12:00 40 07/03/19 11:15 106 24 40 07/03/19 11:00 99 22 116/52 (73) 99 07/03/19 10:30 111/67 07/03/19 10:04 94 22 40 40 07/03/19 10:04 100 07/03/19 10:00 89 16 111/67 (82) 100 07/03/19 09:00 87 17 100/44 (62) 100 07/03/19 08:30 89 16 40 40 07/03/19 08:00 Mechanical Ventilator 07/03/19 08:00 40 07/03/19 08:00 85 07/03/19 08:00 98.2 86 18 105/55 (72) 100 07/03/19 07:00 84 16 40 40 07/03/19 07:00 82 16 98/47 (64) 100 07/03/19 06:00 84 16 101/46 (64) 100 07/03/19 05:30 88 26 109/51 (70) 100 07/03/19 05:07 87 16 40 40 07/03/19 05:00 85 16 103/53 (70) 100 07/03/19 04:00 87 07/03/19 04:00 98.4 91 16 108/56 (73) 100 07/03/19 04:00 Mechanical Ventilator 07/03/19 04:00 40 07/03/19 03:12 90 16 40 40 07/03/19 03:00 88 16 98/58 (71) 100 07/03/19 02:00 83 16 103/54 (70) 100 07/03/19 01:03 83 16 40 40 07/03/19 01:00 83 16 98/51 (67) 100 07/03/19 00:00 84 07/03/19 00:00 Mechanical Ventilator 07/03/19 00:00 98.5 84 16 105/51 (69) 100 07/03/19 00:00 40 07/02/19 23:00 84 19 100/47 (64) 100 07/02/19 22:54 85 16 40 40 07/02/19 22:00 94 17 119/58 (78) 100 07/02/19 21:01 94 17 100 Mechanical Ventilator 40 85 16 40 40 07/02/19 21:00 94 17 126/64 (84) 100 07/02/19 20:00 88 07/02/19 20:00 Mechanical Ventilator 07/02/19 20:00 98.7 92 16 99/58 (72) 100 07/02/19 20:00 40 07/02/19 19:12 94 17 100 Mechanical Ventilator 40 85 16 40 40 07/02/19 19:00 92 16 113/55 (74) 100 07/02/19 18:00 85 16 110/54 (72) 100 07/02/19 17:10 85 16 40 07/02/19 17:00 84 31 102/48 (66) 100 07/02/19 16:12 90 16 40 07/02/19 16:00 97.8 90 17 106/55 (72) 100 07/02/19 16:00 86 07/02/19 16:00 40 07/02/19 16:00 Mechanical Ventilator 07/02/19 15:00 88 16 103/52 (69) 100 07/02/19 14:00 93 16 115/44 (67) 100 I&O Intake and Output 07/02/19 07/03/19 19:00 07:00 Intake Total 1744.85 ml 1575 ml Output Total 435 ml 525 ml Balance 1309.85 ml 1050 ml Intake Oral 0 ml 0 ml IV Total 1664.85 ml 1575 ml Other 80 ml Output Urine Total 435 ml 525 ml # Bowel Movements 4 Cardiovascular: RSR Respiratory: clear Abdomen: soft, distended, non-tender, present bowel sounds, decreased bowel sounds Extremities: no cyanosis Laboratory Tests Test 07/03/19 04:00 07/03/19 12:25 White Blood Count 7.1 K/UL (4.8-10.8) Red Blood Count 2.88 M/UL (4.20-5.40) L Hemoglobin 8.9 G/DL (12.0-16.0) L Hematocrit 26.9 % (37.0-47.0) L Mean Corpuscular Volume 93 FL (80-99) Mean Corpuscular Hemoglobin 31.1 PG (27.0-31.0) H Mean Corpuscular Hemoglobin Concent 33.3 G/DL (32.0-36.0) Red Cell Distribution Width 16.0 % (11.6-14.8) H Platelet Count 57 K/UL (150-450) L Mean Platelet Volume 8.1 FL (6.5-10.1) Neutrophils (%) (Auto) % (45.0-75.0) Lymphocytes (%) (Auto) % (20.0-45.0) Monocytes (%) (Auto) % (1.0-10.0) Eosinophils (%) (Auto) % (0.0-3.0) Basophils (%) (Auto) % (0.0-2.0) Differential Total Cells Counted 100 Neutrophils % (Manual) 92 % (45-75) H Lymphocytes % (Manual) 2 % (20-45) L Monocytes % (Manual) 5 % (1-10) Eosinophils % (Manual) 1 % (0-3) Basophils % (Manual) 0 % (0-2) Band Neutrophils 0 % (0-8) Platelet Estimate Decreased L Platelet Morphology Normal Prothrombin Time 15.2 SEC (9.30-11.50) H Prothromb Time International Ratio 1.5 (0.9-1.1) H Sodium Level 144 MMOL/L (136-145) Potassium Level 3.9 MMOL/L (3.5-5.1) Chloride Level 115 MMOL/L (98-107) H Carbon Dioxide Level 19 MMOL/L (21-32) L Anion Gap 10 mmol/L (5-15) Blood Urea Nitrogen 32 mg/dL (7-18) H Creatinine 0.7 MG/DL (0.55-1.30) Estimat Glomerular Filtration Rate > 60 mL/min (>60) Glucose Level 142 MG/DL (74-106) H Calcium Level 7.2 MG/DL (8.5-10.1) L Total Bilirubin 3.5 MG/DL (0.2-1.0) H Direct Bilirubin 1.5 MG/DL (0.0-0.3) H Aspartate Amino Transf (AST/SGOT) 105 U/L (15-37) H Alanine Aminotransferase (ALT/SGPT) 361 U/L (12-78) H Alkaline Phosphatase 129 U/L (46-116) H Total Protein 4.3 G/DL (6.4-8.2) L Albumin 1.6 G/DL (3.4-5.0) L Globulin 2.7 g/dL Albumin/Globulin Ratio 0.6 (1.0-2.7) L Arterial Blood pH 7.371 (7.350-7.450) Arterial Blood Partial Pressure CO2 29.4 mmHg (35.0-45.0) L Arterial Blood Partial Pressure O2 78.9 mmHg (75.0-100.0) Arterial Blood HCO3 16.7 mmol/L (22.0-26.0) *L Arterial Blood Oxygen Saturation 95.1 % (95-100) Arterial Blood Base Excess -7.5 (-2-2) L James Test Positive Plan Problems: (1) Cirrhosis (2) Varices, esophageal (3) GI bleed Assessment & Plan: 69F with acute GI bleed. etiology likely prior varices anemia on admission and transfused currently in ICU intubated on support EGD noted npo iv fluids ppi and oct gtt will follow with recs thank you (4) Acute GI bleeding Zaid Wong Jul 03, 2019 13:35
[2019-07-03] MEDS: Vancomycin 750mg/NS 275ml IVPB SCH ×2 (14:00)
--- NOTE | 2019-07-03 14:28 | Pre-Procedure Note/Attestation ---
Pre-Procedure Note/Attestation Complete Prior to Procedure Planned Procedure: not applicable Procedure Narrative: paracentesis Indications for Procedure Pre-Operative Diagnosis: ascites Attestation I attest that I discussed the nature of the procedure; its benefits; risks and complications; and alternatives (and the risks and benefits of such alternatives ), prior to the procedure, with the patient (or the patient's legal agency sales representative). I attest that, if there was a reasonable possibility of needing a blood transfusion, the patient (or the patient's legal agency sales representative) was given the [facility] standardized written summary, pursuant to the [place] Blood Safety Act ([place] Health and Safety Code # 1645, as amended). I attest that I re-evaluated the patient just prior to the surgery and that there has been no change in the patient's H&P, except as documented below: Corey Hopper MD Jul 03, 2019 14:28
--- NOTE | 2019-07-03 14:40 | NUR ---
CASE MANAGEMENT: REVIEW 07/03/2019 07/02/2019 SI:ACUTE GI BLEED T 98.3 HR 98 RR 22 B/P 116/57 SATS 99% ON 12L/T PIECE FIO2 40 CL 115 CO2 19 BUN 32 GLU 142 CA 7.2 TBILI 3.5 DBILI 1.5 AST 105 ALT 361 ALP 129 ABGs PCO2 29.4 HCO3 16.7 BE -7.5 IS: OCTREOTIDE IV @ 50 MCG/HR PROTONIX 25 mL/HR IVF @ 75 mL/HR CEFTRIAXONE IV QD INSULIN ASPART SUBQ AC/HS NOREPINEPHRINE PER PARAMETERS FLAGYL IV Q8H ICU DCP: PATIENT TO BE DISCHARGED TO HOME ONCE MEDICALLY CLEARED.
--- NOTE | 2019-07-03 14:43 | NUR ---
NURSE NOTES: Pt currently getting paracentesis done at bedside. VSS. Will continue to monitor.
--- NOTE | 2019-07-03 15:01 | Brief Operative Note ---
Immediate Post Operative Note Operative Note Pre-op Diagnosis: ascites Procedure: paracentesis Post-op Diagnosis: same as pre-op Surgeon: Domenic HOPPER Specimen: yes - fluid sent to the lab Complications: none Fluids: none Implant(s) used?: No Corey Hopper MD Jul 03, 2019 15:01
--- NOTE | 2019-07-03 15:05 | Diagnostic Imaging Report ---
Indications: Ascites Technique: Ultrasound used to localize optimal puncture site. Sterile prepping and draping . Local anesthesia with 1% lidocaine. Under real-time ultrasound guidance, puncture peritoneal space using paracentesis needle. Stylet removed. Catheter placed to vacuum bottle suction. Total 3.2 liters of clear yellow fluid aspirated. Patient tolerated procedure well, without immediate complication. Findings: Followup sonography demonstrates complete resolution of peritoneal fluid. Impression: Successful ultrasound-guided paracentesis, yielding 3.2 liters of fluid
--- NOTE | 2019-07-03 15:36 | NUR ---
RESPIRATORY NOTE: ABG Drawn. Per Dr. Zeng, extubated pt. Pt placed on Cool Aerosol 40% 12LPM. SaO2 100%. Will continue to monitor. Addendum: 07/03/19 at 1538 by VICKEY OBANDO RT PT EXTUBATED AT 1320.
--- NOTE | 2019-07-03 17:52 | NUR ---
NURSE NOTES: Pt turned and repositioned. Oral care done. Will continue monitor.
--- NOTE | 2019-07-03 18:22 | NUR ---
NURSE NOTES: Left femoral TLC removed. PICC line dressing changed. No acute distress. Will continue to monitor.
--- NOTE | 2019-07-03 19:27 | NUR ---
HAND-OFF: Report given to Matty HOYOS.
--- NOTE | 2019-07-03 19:30 | NUR ---
NURSE NOTES: Received pt in no apparent distress. Awake, alert, oriented to self, follow commands. Pt on cool mist aerosol and saturating 100%. Denies pain, denies SOB. Afebrile, NSR, BP stable. Newly inserted PICC line on right upper arm intact, dressing clean and dry. IVF of 1/2NS infuses at 75ml/h; Sandostatin drip at 25mcg/h. Abdomen distended, ascitic; s/p Paracentesis; puncture site on RLQ covered with dry dressing. Rouse cath intact, urine dark tea colored. Sclerae icteric; pt has mild jaundice. Remains NPO. No bloody stools, no hematemesis. Family at bedside, plan of care explained. Will monitor for signs of GIbleeding.
[2019-07-03] MEDS: Dyna-Hex 2% Top Sol 2oz TOPIC SCH (21:09)
--- NOTE | 2019-07-03 22:00 | NUR ---
NURSE NOTES: Calm, passive awake with family members at bedside. VSS, No distress, denies pain, denies SOB
[2019-07-04] VITALS (17 sets, daily range): BP systolic 92–124; BP diastolic 43–65
--- NOTE | 2019-07-04 | NUR ---
NURSE NOTES: Afebrile, Bp stable. Vancomycin enema given. Small amt of burgundy stools came out with irrigation. Paracentesis site leaking serous fluid. Left groin area noted with some excoriation due to tape while pt had TLC. Triad cream applied. TIANNA PICC intact..
[2019-07-04] MEDS: SODIUM CHLORIDE IRRIG SCH ×3 (00:13→12:00)
[2019-07-04] MEDS: VANCOMYCIN IRRIG SCH ×3 (00:13→12:00)
[2019-07-04] MEDS ORDERED: Octreotide Acetate 500 MCG in Sodium Chloride 499 ML IV SCH (02:00)
--- NOTE | 2019-07-04 02:00 | NUR ---
NURSE NOTES: Sleeps on and off. Denies pain. fiO2 .28, sats 100%. No distress, VSS
--- NOTE | 2019-07-04 04:00 | NUR ---
NURSE NOTES: Awake, oral care done, AM care done. Paracentesis site still leaking serous fld but lesser. PICC line patent. Afebrile, BP stable. Denies pain, denies SOB. No bloody,tarry stools, no hematemesis; abdomen still distended.
[2019-07-04 05:15] LABS: HEMATOCRIT 29.3 % (37.0-47.0); HEMOGLOBIN 9.6 G/DL (12.0-16.0); MEAN CORPUSCULAR VOLUME 94 FL (80-99); PLATELET COUNT 63 K/UL (150-450); RED BLOOD COUNT 3.13 M/UL (4.20-5.40); RED CELL DISTRIBUTION WIDTH 16.6 % (11.6-14.8); WHITE BLOOD COUNT 10.8 K/UL (4.8-10.8)
[2019-07-04 05:31] LABS: ANION GAP 10 mmol/L (5-15); BLOOD UREA NITROGEN 26 mg/dL (7-18); CALCIUM 7.4 MG/DL (8.5-10.1); CARBON DIOXIDE 19 MMOL/L (21-32); CHLORIDE 116 MMOL/L (98-107); CREATININE 0.5 MG/DL (0.55-1.30); POTASSIUM 4.2 MMOL/L (3.5-5.1); SODIUM 145 MMOL/L (136-145)
[2019-07-04] MEDS: NovoLOG Insulin Flexpen SUBQ SCH ×4 (05:38→21:33)
--- NOTE | 2019-07-04 06:00 | NUR ---
NURSE NOTES: RT placed pt on 2l/m via NC. Saturating 100%. No SOB.
--- NOTE | 2019-07-04 07:09 | NUR ---
HAND-OFF: Report given to ROMAIN Cobos.
--- NOTE | 2019-07-04 07:30 | NUR ---
NURSE NOTES: Received the patient from ROMAIN Darling. Patient is awake, alert and oriented, able to follow commands. Patient is on 2L O2 via NC. O2 sat 100%. No acute distress noted. Denies any pain or SOB. SR noted on the ekg monitor. right upper arm PICC line intact, dressing intact, clean and dry, running 1/2NS at 75ml/hr and sandostatin at 25mcg/hr. Rouse cath intact, draining dark tea colored urine by gravity. Patient kept NPO. No s/sx of active bleeding noted at this time. Dressing to RLQ paracentesis site intact, clean and dry. Bed in lowest position, locked, side rails upx3. bed alarm on. call light within reach. Will continue to monitor. Addendum: 07/04/19 at 0925 by MOLLY NOVAK RN SCDs on bilateral lower extremities.
--- NOTE | 2019-07-04 08:57 | General Progress Note ---
Assessment/Plan Status: stable, unchanged Assessment/Plan: Assessment - Cirrhosis - UGIB due to esophageal varicies s/p banding - C Diff, on IV flagyl (no oral access for PO vanco at this time) - Resp failure - anemia - lactic acidosis - leukocytosis - guarded Recommendations - serial CBC - transfuse PRN to keep Hg > 7 - swallow eval for today -extubated yesterday - H2B -dc octreotide - IV abx Subjective ROS Limited/Unobtainable: No Allergies: Coded Allergies: No Known Allergies (Unverified , 06/27/19) Objective Last 24 Hour Vital Signs Date Time Temp Pulse Resp B/P (MAP) Pulse Ox O2 Delivery O2 Flow Rate FiO2 07/04/19 08:00 Nasal Cannula 2.0 Simple Mask 2.0 07/04/19 08:00 90 07/04/19 08:00 98.3 91 17 107/58 (74) 100 07/04/19 07:00 90 18 92/65 (74) 99 07/04/19 06:30 100 Nasal Cannula 2.0 28 07/04/19 06:00 91 16 115/56 (75) 100 07/04/19 05:00 87 16 102/51 (68) 100 07/04/19 04:00 98.5 87 14 97/53 (68) 99 07/04/19 04:00 Simple Mask 2.0 Simple Mask 2.0 07/04/19 04:00 88 07/04/19 03:00 88 15 106/52 (70) 100 07/04/19 02:00 85 13 99/53 (68) 100 07/04/19 01:00 87 17 109/49 (69) 100 07/04/19 00:09 84 07/04/19 00:06 Simple Mask 2.0 Simple Mask 2.0 07/04/19 00:04 98.4 103/53 (70) 07/03/19 23:00 85 14 109/51 (70) 100 07/03/19 22:00 86 15 110/50 (70) 93 07/03/19 21:00 86 14 109/47 (67) 99 07/03/19 20:00 98.7 86 18 103/47 (65) 100 07/03/19 20:00 Venturi Mask Venturi Mask 07/03/19 20:00 87 07/03/19 19:22 100 Cool Aerosol 12.0 40 07/03/19 19:00 87 20 109/45 (66) 100 07/03/19 18:00 87 17 101/46 (64) 100 07/03/19 17:00 88 17 108/49 (68) 100 07/03/19 16:00 98.2 90 15 111/45 (67) 100 07/03/19 16:00 90 07/03/19 16:00 Venturi Mask Venturi Mask 07/03/19 15:00 91 15 110/49 (69) 100 07/03/19 14:00 96 21 115/52 (73) 100 07/03/19 13:20 T-piece 12.0 40 07/03/19 13:20 100 Cool Aerosol 12.0 40 07/03/19 13:00 102 20 129/60 (83) 100 07/03/19 12:00 98.3 98 22 116/57 (76) 99 07/03/19 12:00 102 07/03/19 12:00 Mechanical Ventilator 07/03/19 12:00 40 07/03/19 11:15 106 24 40 07/03/19 11:00 99 22 116/52 (73) 99 07/03/19 10:30 111/67 07/03/19 10:04 94 22 40 40 07/03/19 10:04 100 07/03/19 10:00 89 16 111/67 (82) 100 07/03/19 09:00 87 17 100/44 (62) 100 Intake and Output 07/03/19 07/04/19 19:00 07:00 Intake Total 1435.000 ml 1275 ml Output Total 3940 ml 490 ml Balance -2505.000 ml 785 ml Intake Oral 0 ml 0 ml IV Total 1435.000 ml 1275 ml Output Urine Total 440 ml 490 ml Other 3500 ml Laboratory Tests 07/03/19 12:25: Arterial Blood pH 7.371, Arterial Blood Partial Pressure CO2 29.4L, Arterial Blood Partial Pressure O2 78.9, Arterial Blood HCO3 16.7*L, Arterial Blood Oxygen Saturation 95.1, Arterial Blood Base Excess -7.5L, James Test Positive 07/03/19 14:15: Body Fluid Albumin [Pending] 07/04/19 04:30: White Blood Count 10.8#, Red Blood Count 3.13L, Hemoglobin 9.6L, Hematocrit 29.3L, Mean Corpuscular Volume 94, Mean Corpuscular Hemoglobin 30.8, Mean Corpuscular Hemoglobin Concent 32.9, Red Cell Distribution Width 16.6H, Platelet Count 63L, Mean Platelet Volume 7.5, Neutrophils (%) (Auto) , Lymphocytes (%) (Auto) , Monocytes (%) (Auto) , Eosinophils (%) (Auto) , Basophils (%) (Auto) , Sodium Level 145, Potassium Level 4.2, Chloride Level 116H, Carbon Dioxide Level 19L, Anion Gap 10, Blood Urea Nitrogen 26H, Creatinine 0.5L, Estimat Glomerular Filtration Rate > 60, Glucose Level 112H, Calcium Level 7.4L Height (Feet): 5 Height (Inches): 2.00 Weight (Pounds): 149 General Appearance: alert EENT: normal ENT inspection Neck: supple Cardiovascular: normal rate Respiratory/Chest: decreased breath sounds Abdomen: normal bowel sounds, non tender, soft Extremities: non-tender Mina Garcia MD Jul 04, 2019 08:57
--- NOTE | 2019-07-04 08:57 | NUR ---
NURSE NOTES: Patient on room air, O2 sat 98%. No acute distress noted. Dr. Zeng at bedside, okay to transfer the patient to tele.
[2019-07-04] MEDS ORDERED: cefTRIAXone 1 GM in NS 55 ML IVPB SCH (09:00)
--- NOTE | 2019-07-04 09:00 | NUR ---
NURSE NOTES: Spoke with Dr. Garcia, Per , D/C Octreotide and patient for [facility].
--- NOTE | 2019-07-04 09:02 | Pulmonology Progress Note ---
Assessment/Plan Assessment/Plan IMPRESSION: 1. Respiratory failure. Resolved. Extubated 07/03/19 2. Upper GI bleed, likely gastric varices. S/p EGD 3. Diabetes mellitus. 4. Anemia. Hgb stable 5. Thrombocytopenia; 6. Likely hepatic encephalopathy; continue lactulose; has C diff + DISCUSSION: Continue IV fluids. Low flow O2 Continue lactulose Abx for C diff James Zeng M.D. Subjective Interval Events: Extubated yesterday; awake and responsive Constitutional: Reports: no symptoms HEENT: Repors: no symptoms Respiratory: Reports: no symptoms Cardiovascular: Reports: no symptoms Gastrointestinal/Abdominal: Reports: no symptoms Genitourinary: Reports: no symptoms Allergies: Coded Allergies: No Known Allergies (Unverified , 06/27/19) Objective Last 24 Hour Vital Signs Date Time Temp Pulse Resp B/P (MAP) Pulse Ox O2 Delivery O2 Flow Rate FiO2 07/04/19 08:00 Nasal Cannula 2.0 Simple Mask 2.0 07/04/19 08:00 90 07/04/19 08:00 98.3 91 17 107/58 (74) 100 07/04/19 07:00 90 18 92/65 (74) 99 07/04/19 06:30 100 Nasal Cannula 2.0 28 07/04/19 06:00 91 16 115/56 (75) 100 07/04/19 05:00 87 16 102/51 (68) 100 07/04/19 04:00 98.5 87 14 97/53 (68) 99 07/04/19 04:00 Simple Mask 2.0 Simple Mask 2.0 07/04/19 04:00 88 07/04/19 03:00 88 15 106/52 (70) 100 07/04/19 02:00 85 13 99/53 (68) 100 07/04/19 01:00 87 17 109/49 (69) 100 07/04/19 00:09 84 07/04/19 00:06 Simple Mask 2.0 Simple Mask 2.0 07/04/19 00:04 98.4 103/53 (70) 07/03/19 23:00 85 14 109/51 (70) 100 07/03/19 22:00 86 15 110/50 (70) 93 07/03/19 21:00 86 14 109/47 (67) 99 07/03/19 20:00 98.7 86 18 103/47 (65) 100 07/03/19 20:00 Venturi Mask Venturi Mask 07/03/19 20:00 87 07/03/19 19:22 100 Cool Aerosol 12.0 40 07/03/19 19:00 87 20 109/45 (66) 100 07/03/19 18:00 87 17 101/46 (64) 100 07/03/19 17:00 88 17 108/49 (68) 100 07/03/19 16:00 98.2 90 15 111/45 (67) 100 07/03/19 16:00 90 07/03/19 16:00 Venturi Mask Venturi Mask 07/03/19 15:00 91 15 110/49 (69) 100 07/03/19 14:00 96 21 115/52 (73) 100 07/03/19 13:20 T-piece 12.0 40 07/03/19 13:20 100 Cool Aerosol 12.0 40 07/03/19 13:00 102 20 129/60 (83) 100 07/03/19 12:00 98.3 98 22 116/57 (76) 99 07/03/19 12:00 102 07/03/19 12:00 Mechanical Ventilator 07/03/19 12:00 40 07/03/19 11:15 106 24 40 07/03/19 11:00 99 22 116/52 (73) 99 07/03/19 10:30 111/67 07/03/19 10:04 94 22 40 40 07/03/19 10:04 100 07/03/19 10:00 89 16 111/67 (82) 100 07/03/19 09:00 87 17 100/44 (62) 100 Intake and Output 07/03/19 07/04/19 19:00 07:00 Intake Total 1435.000 ml 1275 ml Output Total 3940 ml 490 ml Balance -2505.000 ml 785 ml Intake Oral 0 ml 0 ml IV Total 1435.000 ml 1275 ml Output Urine Total 440 ml 490 ml Other 3500 ml General Appearance: no acute distress HEENT: normocephalic Respiratory/Chest: chest wall non-tender, lungs clear Cardiovascular: normal peripheral pulses, normal rate Abdomen: normal bowel sounds Laboratory Tests 07/03/19 12:25: Arterial Blood pH 7.371, Arterial Blood Partial Pressure CO2 29.4L, Arterial Blood Partial Pressure O2 78.9, Arterial Blood HCO3 16.7*L, Arterial Blood Oxygen Saturation 95.1, Arterial Blood Base Excess -7.5L, James Test Positive 07/03/19 14:15: Body Fluid Albumin [Pending] 07/04/19 04:30: White Blood Count 10.8#, Red Blood Count 3.13L, Hemoglobin 9.6L, Hematocrit 29.3L, Mean Corpuscular Volume 94, Mean Corpuscular Hemoglobin 30.8, Mean Corpuscular Hemoglobin Concent 32.9, Red Cell Distribution Width 16.6H, Platelet Count 63L, Mean Platelet Volume 7.5, Neutrophils (%) (Auto) , Lymphocytes (%) (Auto) , Monocytes (%) (Auto) , Eosinophils (%) (Auto) , Basophils (%) (Auto) , Sodium Level 145, Potassium Level 4.2, Chloride Level 116H, Carbon Dioxide Level 19L, Anion Gap 10, Blood Urea Nitrogen 26H, Creatinine 0.5L, Estimat Glomerular Filtration Rate > 60, Glucose Level 112H, Calcium Level 7.4L Current Medications Medications (Trade) Dose Ordered Sig/Naseem Route PRN Reason Start Time Stop Time Status Last Admin Dose Admin Ceftriaxone Sodium 1 gm/ Sodium Chloride 55 ml @ 110 mls/hr DAILY IVPB 07/04/19 09:00 07/09/19 08:59 07/04/19 08:32 Chlorhexidine Gluconate (Mer-Hex 2%) 1 applic DAILY@2000 TOPIC 07/02/19 20:00 08/01/19 19:59 07/03/19 21:09 Dextrose (Dextrose 50%) 25 ml Q30M PRN IV Hypoglycemia 06/28/19 05:00 07/28/19 04:59 Dextrose (Dextrose 50%) 50 ml Q30M PRN IV Hypoglycemia 06/28/19 05:00 07/28/19 04:59 Famotidine (Pepcid I.v.) 20 mg Q12HR IVP 07/02/19 21:00 08/01/19 20:59 8/28/19 08:32 Insulin Aspart (NovoLOG) BEFORE MEALS AND HS SUBQ 06/28/19 06:30 07/28/19 06:29 07/01/19 17:00 Metronidazole 100 ml @ 100 mls/hr Q8HR IVPB 07/01/19 14:00 07/08/19 13:59 07/04/19 05:38 Morphine Sulfate (Morphine Sulfate) 2 mg Q4H PRN IVP For Pain 06/28/19 09:15 07/05/19 09:14 06/29/19 02:29 Norepinephrine Bitartrate 4 mg/ Dextrose 250 ml @ 0 mls/hr Q24H IV 06/28/19 10:30 07/28/19 10:29 06/30/19 23:32 Octreotide Acetate 500 mcg/ Sodium Chloride 500 ml @ 25 mls/hr Q20H IV 07/04/19 02:00 08/03/19 01:59 07/04/19 03:00 Ondansetron HCl (Zofran) 4 mg Q6H PRN IVP Nausea & Vomiting 06/28/19 16:30 07/28/19 16:29 06/28/19 22:07 Sodium Chloride 1,000 ml @ 75 mls/hr [id number] IV 06/28/19 05:00 07/28/19 04:59 07/03/19 22:29 Vancomycin HCl (Vanco rx to dose) 1 ea DAILY PRN MISC Per rx protocol 07/02/19 12:30 08/01/19 12:29 Vancomycin HCl 0.5 gm/Sodium Chloride 100 ml @ 0 mls/hr Q6HR IRRIG 07/01/19 18:00 07/06/19 17:59 07/04/19 05:37 Vancomycin HCl 750 mg/Sodium Chloride 275 ml @ 183.333 mls/hr Q24H IVPB 07/03/19 14:00 07/08/19 13:59 07/03/19 14:00 James Zeng MD Jul 04, 2019 09:02
--- NOTE | 2019-07-04 09:26 | NUR ---
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 * Altered nutrition related lab values R/T DM, cirrhosis, GIB, clinical condition as evidenced by elev POC glu (232 252 260-> now improved), elev T bili (3.5), elev LFTs, low hgb (7.2-> 9.6), elev LA. PO DIET RECOMMENDATIONS: WHEN SAFE FOR DIET POST EXTUBATION: LOW NA, CCHO LOW TPN Comment: CONSULT RD IF UNABLE TO EXTUBATE AND UNABLE TO OBTAIN GI ACCESS/ PT MAY REQUIRE PARENTERAL NUTRITION ADDITIONAL RECOMMENDATIONS: * Calibrated bedscale wt for accurate cbw Bedscale wt of 149lbs vs family's stated wt of ~106lbs * Monitor liver fxn- LFTs trending up * Monitor NPO status, respiratory status-> s/p extubation, SPRAY FOAM INSTALLER pending * Monitor lytes, replete as needed .
--- NOTE | 2019-07-04 10:13 | NUR ---
NURSE NOTES: Patient's family at bedside, updated on patient's status. ST Barb to see the patient today. Patient resting in bed comfortably. O2 sat 100% on room air. Denies SOB at this time.
--- NOTE | 2019-07-04 11:44 | NUR ---
*--* INSURANCE *--* UPDATED CLINICALS AND REVIEWS HAVE BEEN FAXED TO: ERICKA/CHAZ FULLY DELEGATED TO SHANICE F/S FAXED TO SHANICE NCM: AKUA P- [phone] F- [phone]...........REVIEW/ CLINICAL
--- NOTE | 2019-07-04 11:59 | NUR ---
NURSE NOTES: Bedside ST nuno done, okay to administer po meds. Called Dr. Hurtado regarding changing irrig vanco to po vanco, awaiting for callback.
--- NOTE | 2019-07-04 12:00 | NUR ---
NURSE NOTES: Patient was turned and repositioned. Patient kept clean and dry. VSS.
--- NOTE | 2019-07-04 12:15 | NUR ---
NURSE NOTES: Dr. Hurtado called back, per MD D/C randa sousa, and start on po vanco q6hr.
--- NOTE | 2019-07-04 12:31 | NUR ---
ST NOTE: REFERRED BY DR CALDWELL (PRIMARY DR MCCARTHY/SARY) FOR SWALLOW EVAL, SEE FULL REPORT TO FOLLOW DYSPHAGIA RISK FACTORS FOR THIS 69 Y.O.ESTONIAN-SPEAKING ([facility]) FEMALE: ACUTE ISSUES: VOMITING, HYPOVOLEMIC DUE TO SHOCK HEMATEMESIS, SUSPECTED ASPIRATION (MONITOR FOR WORSENED SEPSIS AND PNA), RESP FAILURE INTUBATED FROM 06/28 UNTIL 07/03, GIB, ESOPHAGEAL VARICES (BAND SURGERY 06/28) THEN OBTUNDED LATER, NEW AND INCREASED BILATERAL BIBASILAR AND RIGHT PERIHILAR ATELECTASIS AND MAY BE SOME CONSOLIDATION AT RIGHT LUNG BASE, CIRRHOSIS, HEPATIC ENCEPHALOPATHY. MEDS PEPCID (GERD) AND MORPHINE H/O DIABETES NO POLST/AD IN CHART REGARDING TF PREFERENCES, NO PO SINCE 06/28 7 DAYS AGO. PER RN, CANNOT HAVE NGT PLACED. PER FAMILY, SHE WAS ON REG TEXTURE DIET AND THIN LIQUIDS AND DID NOT HAVE SWALLOWING PROBLEMS. SHE WAS ON A DIABETIC DIET AND DID NOT COMPLY WITH NICK DIET THAT WAS RECOMMENDED. CURRENTLY NPO. ALERT BUT VERY PASSIVE, DOES NOT INITIATE VERBALIZATION EVEN WHEN SPOKEN TO IN ESTONIAN, POOR FOLLOWING SOME ORAL COMMANDS GETS CONFUSED. VOICE IS SOFT AND SLIGHTLY ROUGH. MISSING MOST DENTITION NO DENTURES. VITALS GOOD INITIAL IMPRESSIONS: S/S OF AT LEAST A MILD OROPHARYNGEAL DYSPHAGIA AND SOME ESOPHAGEAL DYSPHAGIA LIKELY DUE TO VARICES AND REPAIR WITH BANDS. SLOWER, WEAKER, AND INCOORDINATED TONGUE MOVEMENTS SLOWER OROPHARYNGEAL TRANSIT TIMES WITH PUREED TSP AND SWALLOWS X2 WITH FAIR HYOLARYNGEAL EXCURSION, NO ORAL RESIDUE NOR OVERT ASPIRATION. MILDLY SLOWER TRANSIT TIMES BUT NO ORAL RESIDUE NOR OVERT S/S OF ASPIRATION WITH THIN AND NECTAR THICK LIQUIDS LIQUIDS VIA TSP/CUP, ? IF SHE HAS A SILENT ASPIRATION RISK (PERIODS OF BEING LESS ALERT) RECOMMENDATIONS: COMPLETE MODIFIED BARIUM SWALLOW STUDY TO FURTHER ASSESS SWALLOW, DETERMINE SILENT ASPIRATION RISK AND ETIOLOGY, AND ATTEMPT TRIAL TX IF PO GIVEN, CONSIDER SENDING LIQUIFIED PUREED LIKE NECTAR THICK SOUP DIET AND NO THIN LIQUIDS VIA TSP AND OTHER POSTED ASP/REFLUX PRECAUTIONS LOW NA AND CCHO-LOW (PER RD) WITH HIGH VILMA SUP PER RD SKILLED DYSPHAGIA MANAGEMENT AND TX AND COG-COM EVAL EDUCATED RN MOLLY IN POSTED ASP PREC D/W RN, DR CALDWELL AND DR MCCARTHY WHO AGREE LOW NA CCHO-LOW LIQUIFIED PUREED LIKE NECTAR THICK SOUP AND HIGH VILMA SUP
--- NOTE | 2019-07-04 13:45 | NUR ---
NURSE NOTES: Fed patient with HOB elevated. Patient had 80% of lunch. patient tolerated well. VSS. Addendum: 07/04/19 at 1549 by MOLLY NOVAK RN No s/sx of bleeding noted. Denies n/v.
--- NOTE | 2019-07-04 13:51 | NUR ---
CASE MANAGEMENT: REVIEW 07/04/2019 SI:ACUTE GI BLEED T 98.3 HR 99 RR 17 B/P 107/62 SATS 98% ON RA CL 116 CO2 19 BUN 26 CR 0.5 GLU 112 CA 7.4 IS: PROTONIX 25 mL/HR IVF @ 50 mL/HR CEFTRIAXONE IV QD INSULIN ASPART SUBQ AC/HS FLAGYL IV Q8H VANCO IV Q24H VANCO PO Q6H TELE DCP: PATIENT TO BE DISCHARGED TO HOME ONCE MEDICALLY CLEARED.
--- NOTE | 2019-07-04 14:14 | General Progress Note ---
Assessment/Plan Status: stable, unchanged Assessment/Plan: Assessment/Plan Status: stable Assessment/Plan: 69-year-old female with past medical history of liver cirrhosis without known etiology presents for hematemesis #Hypovolemic shock secondary to hematemesis- resolved off pressors -ivf's -s/p PRBC, platelet transfusion -GI consult, appreciate recs: EGD 06/29/2019, esophageal varices x7 banding. Blood in abdomen. A limited however no active bleeding noted -Continue to monitor Hb, noted decreased from 8.2 to 7.2 today. PRBC if < 7 or if acute bleed with Hb < 8 -Surgery consult, appreciate recs -Cardiology consult, appreciate recs -Echo: ef wnl #Intubation for airway protection and now with encephalopathy, extubated 07/03 -Pulmonology consult, appreciate recs #Worsening leukocytosis, continue to monitor POSITIVE C. difficile. Started on flagyl 07/01 and ID consultation appreciated. Antibiotics adjusted as needed. Now on PO Vancomycin #Urinary retention -Straight cath with 500 cc -Continue Rouse -Monitor ins and outs -UA negative #Liver cirrhosis with esophageal varices -Status post EGD as above -Ascites present, continue Rocephin, Flagyl -Protonix 40 mg IV twice daily. Famotidine added by GI -Octreotide drip, for 72 hours -Monitor CBC and BMP -Patient denies alcohol use, family states reason for liver cirrhosis is unknown. Differentials include Saunders versus autoimmune causes -Autoimmune work-up, can be deferred -Hepatitis panel pending -Right upper quadrant ultrasound: Reviewed -Continue lactulose -CEA normal #Hepatic encephalopathy -Continue lactulose as per above #Elevated troponin, likely secondary to demand ischemia -Cardiology consulted, appreciate recs -Echo: Within normal limits -Troponins downtrended. #Lactic acidosis, improving -Secondary to #1 # Physical deconditioning - PT evaluation # Disposition Downgrade stable to leave ICU today. The time of my note may not reflect the time of my patient encounter. 45 minutes of critical time spent. This includes interpretation of charting, vitals, labs, imaging, exam. Subjective Date patient seen: Jul 04, 2019 Time patient seen: 12:00 ROS Limited/Unobtainable: No Allergies: Coded Allergies: No Known Allergies (Unverified , 06/27/19) Subjective Feels hungry and started liquid/soup diet after ST evaluation. Objective Last 24 Hour Vital Signs Date Time Temp Pulse Resp B/P (MAP) Pulse Ox O2 Delivery O2 Flow Rate FiO2 07/04/19 13:00 95 19 111/51 (71) 97 07/04/19 12:00 93 07/04/19 12:00 Room Air 07/04/19 12:00 98.3 99 17 107/62 (77) 98 07/04/19 11:00 92 17 109/43 (65) 99 07/04/19 10:00 90 14 94/51 (65) 98 07/04/19 09:00 89 17 105/52 (69) 98 07/04/19 08:00 Nasal Cannula 2.0 Simple Mask 2.0 07/04/19 08:00 90 07/04/19 08:00 98.3 91 17 107/58 (74) 100 07/04/19 07:00 90 18 92/65 (74) 99 07/04/19 06:30 100 Nasal Cannula 2.0 28 07/04/19 06:00 91 16 115/56 (75) 100 07/04/19 05:00 87 16 102/51 (68) 100 07/04/19 04:00 98.5 87 14 97/53 (68) 99 07/04/19 04:00 Simple Mask 2.0 Simple Mask 2.0 07/04/19 04:00 88 07/04/19 03:00 88 15 106/52 (70) 100 07/04/19 02:00 85 13 99/53 (68) 100 07/04/19 01:00 87 17 109/49 (69) 100 07/04/19 00:09 84 07/04/19 00:06 Simple Mask 2.0 Simple Mask 2.0 07/04/19 00:04 98.4 103/53 (70) 07/03/19 23:00 85 14 109/51 (70) 100 07/03/19 22:00 86 15 110/50 (70) 93 07/03/19 21:00 86 14 109/47 (67) 99 07/03/19 20:00 98.7 86 18 103/47 (65) 100 07/03/19 20:00 Venturi Mask Venturi Mask 07/03/19 20:00 87 07/03/19 19:22 100 Cool Aerosol 12.0 40 07/03/19 19:00 87 20 109/45 (66) 100 07/03/19 18:00 87 17 101/46 (64) 100 07/03/19 17:00 88 17 108/49 (68) 100 07/03/19 16:00 98.2 90 15 111/45 (67) 100 07/03/19 16:00 90 07/03/19 16:00 Venturi Mask Venturi Mask 07/03/19 15:00 91 15 110/49 (69) 100 Intake and Output 07/03/19 07/04/19 19:00 07:00 Intake Total 1435.000 ml 1275 ml Output Total 3940 ml 490 ml Balance -2505.000 ml 785 ml Intake Oral 0 ml 0 ml IV Total 1435.000 ml 1275 ml Output Urine Total 440 ml 490 ml Other 3500 ml Laboratory Tests 07/03/19 14:15: Body Fluid Albumin <0.2 07/04/19 04:30: White Blood Count 10.8#, Red Blood Count 3.13L, Hemoglobin 9.6L, Hematocrit 29.3L, Mean Corpuscular Volume 94, Mean Corpuscular Hemoglobin 30.8, Mean Corpuscular Hemoglobin Concent 32.9, Red Cell Distribution Width 16.6H, Platelet Count 63L, Mean Platelet Volume 7.5, Neutrophils (%) (Auto) , Lymphocytes (%) (Auto) , Monocytes (%) (Auto) , Eosinophils (%) (Auto) , Basophils (%) (Auto) , Sodium Level 145, Potassium Level 4.2, Chloride Level 116H, Carbon Dioxide Level 19L, Anion Gap 10, Blood Urea Nitrogen 26H, Creatinine 0.5L, Estimat Glomerular Filtration Rate > 60, Glucose Level 112H, Calcium Level 7.4L Height (Feet): 5 Height (Inches): 2.00 Weight (Pounds): 149 General Appearance: WD/WN, moderate distress EENT: PERRL/EOMI Neck: non-tender Cardiovascular: normal peripheral pulses, normal rate Respiratory/Chest: chest wall non-tender, lungs clear Abdomen: normal bowel sounds, non tender 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
[2019-07-04] MEDS ORDERED: NS 275ml ONE (14:30)
[2019-07-04] MEDS ORDERED: 1/2 NS 1000ml IV ONE (14:30)
[2019-07-04] MEDS: Vancomycin 750mg/NS 275ml IVPB SCH ×2 (14:43)
--- NOTE | 2019-07-04 15:30 | NUR ---
TRANSFER TO FLOOR: Patient transferred to [facility]. Report given to ROMAIN García. Belongings and medications given to primary RN. Patient's daughter at bedside, informed of transfer.
[2019-07-04] MEDS ORDERED: Morphine Sulfate 2mg/ml Inj(IV/IM USE ONLY) IVP PRN (15:43)
--- NOTE | 2019-07-04 15:48 | NUR ---
NURSE NOTES: Received patient via gurney, report given by ROMAIN xavier. Patient is resting in the bed in stable condition. Awake A/O x3 with no signs of acute distress at this moment. Respiration non labored on Room air. No sob noted. Family at bedside. IV is running at RX dose.Call light and bed side table within reach, Bed in lowest position, with two side rails up, wheels locked and alarm on. Will continue to monitor and follow plan of care.
--- NOTE | 2019-07-04 16:06 | Surgery Progress Note ---
Surgery Progress Note Subjective Additional Comments downgraded from ICU improving no acute events exam stable prognosis still guarded Objective Last 24 Hour Vital Signs Date Time Temp Pulse Resp B/P (MAP) Pulse Ox O2 Delivery O2 Flow Rate FiO2 07/04/19 15:00 95 21 115/48 (70) 97 07/04/19 14:00 101 21 124/54 (77) 96 07/04/19 13:00 95 19 111/51 (71) 97 07/04/19 12:00 93 07/04/19 12:00 Room Air 07/04/19 12:00 98.3 99 17 107/62 (77) 98 07/04/19 11:00 92 17 109/43 (65) 99 07/04/19 10:00 90 14 94/51 (65) 98 07/04/19 09:00 89 17 105/52 (69) 98 07/04/19 08:00 Nasal Cannula 2.0 Simple Mask 2.0 07/04/19 08:00 90 07/04/19 08:00 98.3 91 17 107/58 (74) 100 07/04/19 07:00 90 18 92/65 (74) 99 07/04/19 06:30 100 Nasal Cannula 2.0 28 07/04/19 06:00 91 16 115/56 (75) 100 07/04/19 05:00 87 16 102/51 (68) 100 07/04/19 04:00 98.5 87 14 97/53 (68) 99 07/04/19 04:00 Simple Mask 2.0 Simple Mask 2.0 07/04/19 04:00 88 07/04/19 03:00 88 15 106/52 (70) 100 07/04/19 02:00 85 13 99/53 (68) 100 07/04/19 01:00 87 17 109/49 (69) 100 07/04/19 00:09 84 07/04/19 00:06 Simple Mask 2.0 Simple Mask 2.0 07/04/19 00:04 98.4 103/53 (70) 07/03/19 23:00 85 14 109/51 (70) 100 07/03/19 22:00 86 15 110/50 (70) 93 07/03/19 21:00 86 14 109/47 (67) 99 07/03/19 20:00 98.7 86 18 103/47 (65) 100 07/03/19 20:00 Venturi Mask Venturi Mask 07/03/19 20:00 87 07/03/19 19:22 100 Cool Aerosol 12.0 40 07/03/19 19:00 87 20 109/45 (66) 100 07/03/19 18:00 87 17 101/46 (64) 100 07/03/19 17:00 88 17 108/49 (68) 100 I&O Intake and Output 07/03/19 07/04/19 19:00 07:00 Intake Total 1435.000 ml 1275 ml Output Total 3940 ml 490 ml Balance -2505.000 ml 785 ml Intake Oral 0 ml 0 ml IV Total 1435.000 ml 1275 ml Output Urine Total 440 ml 490 ml Other 3500 ml Dressing: saturated Wound: other Drains: other Cardiovascular: RSR Respiratory: decreased breath sounds Abdomen: soft, distended, present bowel sounds Extremities: no cyanosis Laboratory Tests Test 07/04/19 04:30 White Blood Count 10.8 K/UL (4.8-10.8) # Red Blood Count 3.13 M/UL (4.20-5.40) L Hemoglobin 9.6 G/DL (12.0-16.0) L Hematocrit 29.3 % (37.0-47.0) L Mean Corpuscular Volume 94 FL (80-99) Mean Corpuscular Hemoglobin 30.8 PG (27.0-31.0) Mean Corpuscular Hemoglobin Concent 32.9 G/DL (32.0-36.0) Red Cell Distribution Width 16.6 % (11.6-14.8) H Platelet Count 63 K/UL (150-450) L Mean Platelet Volume 7.5 FL (6.5-10.1) Neutrophils (%) (Auto) % (45.0-75.0) Lymphocytes (%) (Auto) % (20.0-45.0) Monocytes (%) (Auto) % (1.0-10.0) Eosinophils (%) (Auto) % (0.0-3.0) Basophils (%) (Auto) % (0.0-2.0) Sodium Level 145 MMOL/L (136-145) Potassium Level 4.2 MMOL/L (3.5-5.1) Chloride Level 116 MMOL/L (98-107) H Carbon Dioxide Level 19 MMOL/L (21-32) L Anion Gap 10 mmol/L (5-15) Blood Urea Nitrogen 26 mg/dL (7-18) H Creatinine 0.5 MG/DL (0.55-1.30) L Estimat Glomerular Filtration Rate > 60 mL/min (>60) Glucose Level 112 MG/DL (74-106) H Calcium Level 7.4 MG/DL (8.5-10.1) L Plan Problems: (1) Cirrhosis (2) Varices, esophageal (3) GI bleed Assessment & Plan: 69F with acute GI bleed. etiology likely prior varices anemia on admission and transfused extubated and improving downgraded comfortable EGD noted okay for diet iv fluids PPI prognosis still guarded will follow with recs thank you (4) Acute GI bleeding Zaid Wong Jul 04, 2019 16:06
[2019-07-04] MEDS: Vancomycin oral 125mg/2.5ml ORAL SCH ×2 (17:55→23:46)
[2019-07-04] MEDS ORDERED: Vancomycin oral 125mg/2.5ml ORAL SCH (18:00)
--- NOTE | 2019-07-04 18:31 | Hematology/Onc Progress Note ---
Assessment/Plan Assessment/Plan Assessment and Recs: # Anemia of GI bleed -- patient presents with occult+ bleeding, anemia panel reviewed iron stores are moderate but given 4 units prbc, can be falsely moderate, recheck in several days, anemia is due to variceal bleed --> as per GI eval, may need endoscopy --> has been started on ppi --> cea has been ordered - normal --> Hgb goal >7. Transfuse prn. --> (s/p 4 units prbc) --> Epogen or iron at this time is not particularly indicated --> Medications have been reviewed --> continue ppi and octreotide prn per gi --> hgb trend 8.8-->8.8-->8.2-->7.2->9.6 # Thrombocytopenia - potential causes multifactorial, evaluate liver and viral etiologies to begin, also could be related to underlying medications patient has received. In this case is due to etoh abuse, esoph varices and cirrhosis is noted, also potential c.diff infection --> Hep panel pending and HIV negative --> US abd does show cirrhosis --> Peripheral smear ordered to evaluate for blasts /schistocytes does not show any --> abx and other meds have been reviewed --> ok for ppx if plt >50k w/ either heparin or lovenox --> Transfuse if Plt < 20k and fever, or if Plt < 10k without fever --> plt count 90k-->46k-->63k --> EGD per gi --> s/p plt transfusion on 06/29 # Varices, esophageal --> potential rupture as per gi recs # Cirrhosis --> with hepatic enceph --> gi recs prn # Resp failure --> was intubated --> now extubated on ra # Hypokalemia with dec K --> given IV k as per pcp The timing of this note does not necessarily reflect the time of the patient was seen. GREATLY APPRECIATE CONSULTATION. Subjective Constitutional: Denies: no symptoms, chills, fever, malaise, weakness, other HEENT: Denies: no symptoms, eye pain, blurred vision, tearing, double vision, ear pain, ear discharge, nose pain, nose congestion, throat pain, throat swelling, mouth pain, mouth swelling, other Cardiovascular: Denies: no symptoms, chest pain, edema, irregular heart rate, lightheadedness, palpitations, syncope, other Respiratory: Denies: no symptoms, cough, shortness of breath, SOB with excertion, SOB at rest, sputum, wheezing, other Gastrointestinal/Abdominal: Denies: no symptoms, abdomen distended, abdominal pain, black stools, tarry stools, blood in stool, constipated, diarrhea, difficulty swallowing, nausea, poor appetite, poor fluid intake, rectal bleeding , vomiting, other Neurologic/Psychiatric: Denies: no symptoms, anxiety, depressed, emotional problems, headache, numbness, paresthesia, pre-existing deficit, seizure, tingling, tremors, weakness, other Endocrine: Denies: no symptoms, excessive sweating, flushing, intolerance to cold, intolerance to heat, increased hunger, increased thirst, increased urine, unexplained weight gain, unexplained weight loss, other Allergies: Coded Allergies: No Known Allergies (Unverified , 06/27/19) Subjective 06/29: icu, s/p egd and plt tx, levo gtt 07/01: remains on vent, ivelisse Montero rn, with c. diff + and on abx, holding off weaning 07/02: remains on vent, c.diff abx, weaning tolerated well, no changed, ivelisse gage 07/03: no bleeding no chills no night sweats reported 07/04: seen and ivelisse gage in the am, now downgraded out of icu Objective Objective Current Medications Medications (Trade) Dose Ordered Sig/Naseem Route PRN Reason Start Time Stop Time Status Last Admin Dose Admin Ceftriaxone Sodium 1 gm/ Sodium Chloride 55 ml @ 110 mls/hr DAILY IVPB 07/05/19 09:00 07/09/19 08:59 Chlorhexidine Gluconate (Mer-Hex 2%) 1 applic DAILY@1999 TOPIC 07/04/19 20:00 08/01/19 19:59 Dextrose (Dextrose 50%) 25 ml Q30M PRN IV Hypoglycemia 07/04/19 16:00 07/28/19 04:59 Dextrose (Dextrose 50%) 50 ml Q30M PRN IV Hypoglycemia 07/04/19 16:00 07/28/19 04:59 Famotidine (Pepcid I.v.) 20 mg Q12HR IVP 07/04/19:00 08/01/19 20:59 Insulin Aspart (NovoLOG) BEFORE MEALS AND HS SUBQ 07/04/19 16:30 07/28/19 06:29 07/04/19 16:56 Metronidazole 100 ml @ 100 mls/hr Q8HR IVPB 07/04/19 22:00 07/08/19 13:59 Morphine Sulfate (Morphine Sulfate) 2 mg Q4H PRN IVP For Pain 07/04/19 15:43 07/11/19 15:42 Ondansetron HCl (Zofran) 4 mg Q6H PRN IVP Nausea & Vomiting 07/04/19 15:43 08/03/19 15:42 Sodium Chloride 1,000 ml @ 50 mls/hr Q20H IV 07/04/19 15:42 08/03/19 15:41 Vancomycin HCl (Firvanq) 125 mg Q6HR ORAL 07/04/19 18:00 07/11/19 17:59 07/04/19 17:55 Vancomycin HCl (Vanco rx to dose) 1 ea DAILY PRN MISC Per rx protocol 07/05/19 09:00 08/01/19 12:29 Vancomycin HCl 750 mg/Sodium Chloride 275 ml @ 183.333 mls/hr Q24H IVPB 07/05/19 14:00 07/08/19 13:59 Last 24 Hour Vital Signs Date Time Temp Pulse Resp B/P (MAP) Pulse Ox O2 Delivery O2 Flow Rate FiO2 07/04/19 16:00 Room Air 07/04/19 16:00 96 07/04/19 15:00 95 21 115/48 (70) 97 07/04/19 14:00 101 21 124/54 (77) 96 07/04/19 13:00 95 19 111/51 (71) 97 07/04/19 12:00 93 07/04/19 12:00 Room Air 07/04/19 12:00 98.3 99 17 107/62 (77) 98 07/04/19 11:00 92 17 109/43 (65) 99 07/04/19 10:00 90 14 94/51 (65) 98 07/04/19 09:00 89 17 105/52 (69) 98 07/04/19 08:00 Nasal Cannula 2.0 Simple Mask 2.0 07/04/19 08:00 90 07/04/19 08:00 98.3 91 17 107/58 (74) 100 07/04/19 07:00 90 18 92/65 (74) 99 07/04/19 06:30 100 Nasal Cannula 2.0 28 07/04/19 06:00 91 16 115/56 (75) 100 07/04/19 05:00 87 16 102/51 (68) 100 07/04/19 04:00 98.5 87 14 97/53 (68) 99 07/04/19 04:00 Simple Mask 2.0 Simple Mask 2.0 07/04/19 04:00 88 07/04/19 03:00 88 15 106/52 (70) 100 07/04/19 02:00 85 13 99/53 (68) 100 07/04/19 01:00 87 17 109/49 (69) 100 07/04/19 00:09 84 07/04/19 00:06 Simple Mask 2.0 Simple Mask 2.0 07/04/19 00:04 98.4 103/53 (70) 07/03/19 23:00 85 14 109/51 (70) 100 07/03/19 22:00 86 15 110/50 (70) 93 07/03/19 21:00 86 14 109/47 (67) 99 07/03/19 20:00 98.7 86 18 103/47 (65) 100 07/03/19 20:00 Venturi Mask Venturi Mask 07/03/19 20:00 87 07/03/19 19:22 100 Cool Aerosol 12.0 40 07/03/19 19:00 87 20 109/45 (66) 100 07/03/19 18:00 87 17 101/46 (64) 100 07/03/19 17:00 88 17 108/49 (68) 100 07/03/19 16:00 98.2 90 15 111/45 (67) 100 07/03/19 16:00 90 07/03/19 16:00 Venturi Mask Venturi Mask 07/03/19 15:00 91 15 110/49 (69) 100 07/03/19 14:00 96 21 115/52 (73) 100 07/03/19 13:20 T-piece 12.0 40 07/03/19 13:20 100 Cool Aerosol 12.0 40 07/03/19 13:00 102 20 129/60 (83) 100 07/03/19 12:00 98.3 98 22 116/57 (76) 99 07/03/19 12:00 102 07/03/19 12:00 Mechanical Ventilator 07/03/19 12:00 40 07/03/19 11:15 106 24 40 07/03/19 11:00 99 22 116/52 (73) 99 07/03/19 10:30 111/67 07/03/19 10:04 94 22 40 40 07/03/19 10:04 100 07/03/19 10:00 89 16 111/67 (82) 100 07/03/19 09:00 87 17 100/44 (62) 100 07/03/19 08:30 89 16 40 40 07/03/19 08:00 Mechanical Ventilator 07/03/19 08:00 40 07/03/19 08:00 85 07/03/19 08:00 98.2 86 18 105/55 (72) 100 07/03/19 07:00 84 16 40 40 07/03/19 07:00 82 16 98/47 (64) 100 07/03/19 06:00 84 16 101/46 (64) 100 07/03/19 05:30 88 26 109/51 (70) 100 07/03/19 05:07 87 16 40 40 07/03/19 05:00 85 16 103/53 (70) 100 07/03/19 04:00 87 07/03/19 04:00 98.4 91 16 108/56 (73) 100 07/03/19 04:00 Mechanical Ventilator 07/03/19 04:00 40 07/03/19 03:12 90 16 40 40 07/03/19 03:00 88 16 98/58 (71) 100 07/03/19 02:00 83 16 103/54 (70) 100 07/03/19 01:03 83 16 40 40 07/03/19 01:00 83 16 98/51 (67) 100 07/03/19 00:00 84 07/03/19 00:00 Mechanical Ventilator 07/03/19 00:00 98.5 84 16 105/51 (69) 100 07/03/19 00:00 40 07/02/19 23:00 84 19 100/47 (64) 100 07/02/19 22:54 85 16 40 40 07/02/19 22:00 94 17 119/58 (78) 100 07/02/19 21:01 94 17 100 Mechanical Ventilator 40 85 16 40 40 07/02/19 21:00 94 17 126/64 (84) 100 07/02/19 20:00 88 07/02/19 20:00 Mechanical Ventilator 07/02/19 20:00 98.7 92 16 99/58 (72) 100 07/02/19 20:00 40 07/02/19 19:12 94 17 100 Mechanical Ventilator 40 85 16 40 40 07/02/19 19:00 92 16 113/55 (74) 100 Intake and Output 07/03/19 07/04/19 19:00 07:00 Intake Total 1435.000 ml 1275 ml Output Total 3940 ml 490 ml Balance -2505.000 ml 785 ml Intake Oral 0 ml 0 ml IV Total 1435.000 ml 1275 ml Output Urine Total 440 ml 490 ml Other 3500 ml Labs Test 07/02/19 04:00 07/03/19 04:00 07/03/19 12:25 07/03/19 14:15 White Blood Count 5.9 K/UL (4.8-10.8) 7.1 K/UL (4.8-10.8) Red Blood Count 2.29 M/UL (4.20-5.40) 2.88 M/UL (4.20-5.40) Hemoglobin 7.2 G/DL (12.0-16.0) 8.9 G/DL (12.0-16.0) Hematocrit 21.5 % (37.0-47.0) 26.9 % (37.0-47.0) Mean Corpuscular Volume 94 FL (80-99) 93 FL (80-99) Mean Corpuscular Hemoglobin 31.5 PG (27.0-31.0) 31.1 PG (27.0-31.0) Mean Corpuscular Hemoglobin Concent 33.5 G/DL (32.0-36.0) 33.3 G/DL (32.0-36.0) Red Cell Distribution Width 18.6 % (11.6-14.8) 16.0 % (11.6-14.8) Platelet Count 46 K/UL (150-450) 57 K/UL (150-450) Mean Platelet Volume 8.4 FL (6.5-10.1) 8.1 FL (6.5-10.1) Neutrophils (%) (Auto) % (45.0-75.0) % (45.0-75.0) Lymphocytes (%) (Auto) % (20.0-45.0) % (20.0-45.0) Monocytes (%) (Auto) % (1.0-10.0) % (1.0-10.0) Eosinophils (%) (Auto) % (0.0-3.0) % (0.0-3.0) Basophils (%) (Auto) % (0.0-2.0) % (0.0-2.0) Sodium Level 141 MMOL/L (136-145) 144 MMOL/L (136-145) Potassium Level 3.8 MMOL/L (3.5-5.1) 3.9 MMOL/L (3.5-5.1) Chloride Level 115 MMOL/L (98-107) 115 MMOL/L (98-107) Carbon Dioxide Level 20 MMOL/L (21-32) 19 MMOL/L (21-32) Anion Gap 6 mmol/L (5-15) 10 mmol/L (5-15) Blood Urea Nitrogen 34 mg/dL (7-18) 32 mg/dL (7-18) Creatinine 0.8 MG/DL (0.55-1.30) 0.7 MG/DL (0.55-1.30) Estimat Glomerular Filtration Rate > 60 mL/min (>60) > 60 mL/min (>60) Glucose Level 136 MG/DL (74-106) 142 MG/DL (74-106) Calcium Level 7.0 MG/DL (8.5-10.1) 7.2 MG/DL (8.5-10.1) Differential Total Cells Counted 100 Neutrophils % (Manual) 92 % (45-75) Lymphocytes % (Manual) 2 % (20-45) Monocytes % (Manual) 5 % (1-10) Eosinophils % (Manual) 1 % (0-3) Basophils % (Manual) 0 % (0-2) Band Neutrophils 0 % (0-8) Platelet Estimate Decreased Platelet Morphology Normal Prothrombin Time 15.2 SEC (9.30-11.50) Prothromb Time International Ratio 1.5 (0.9-1.1) Total Bilirubin 3.5 MG/DL (0.2-1.0) Direct Bilirubin 1.5 MG/DL (0.0-0.3) Aspartate Amino Transf (AST/SGOT) 105 U/L (15-37) Alanine Aminotransferase (ALT/SGPT) 361 U/L (12-78) Alkaline Phosphatase 129 U/L (46-116) Total Protein 4.3 G/DL (6.4-8.2) Albumin 1.6 G/DL (3.4-5.0) Globulin 2.7 g/dL Albumin/Globulin Ratio 0.6 (1.0-2.7) Arterial Blood pH 7.371 (7.350-7.450) Arterial Blood Partial Pressure CO2 29.4 mmHg (35.0-45.0) Arterial Blood Partial Pressure O2 78.9 mmHg (75.0-100.0) Arterial Blood HCO3 16.7 mmol/L (22.0-26.0) Arterial Blood Oxygen Saturation 95.1 % (95-100) Arterial Blood Base Excess -7.5 (-2-2) James Test Positive Body Fluid Albumin <0.2 g/dL (.) Test 07/04/19 04:30 White Blood Count 10.8 K/UL (4.8-10.8) Red Blood Count 3.13 M/UL (4.20-5.40) Hemoglobin 9.6 G/DL (12.0-16.0) Hematocrit 29.3 % (37.0-47.0) Mean Corpuscular Volume 94 FL (80-99) Mean Corpuscular Hemoglobin 30.8 PG (27.0-31.0) Mean Corpuscular Hemoglobin Concent 32.9 G/DL (32.0-36.0) Red Cell Distribution Width 16.6 % (11.6-14.8) Platelet Count 63 K/UL (150-450) Mean Platelet Volume 7.5 FL (6.5-10.1) Neutrophils (%) (Auto) % (45.0-75.0) Lymphocytes (%) (Auto) % (20.0-45.0) Monocytes (%) (Auto) % (1.0-10.0) Eosinophils (%) (Auto) % (0.0-3.0) Basophils (%) (Auto) % (0.0-2.0) Sodium Level 145 MMOL/L (136-145) Potassium Level 4.2 MMOL/L (3.5-5.1) Chloride Level 116 MMOL/L (98-107) Carbon Dioxide Level 19 MMOL/L (21-32) Anion Gap 10 mmol/L (5-15) Blood Urea Nitrogen 26 mg/dL (7-18) Creatinine 0.5 MG/DL (0.55-1.30) Estimat Glomerular Filtration Rate > 60 mL/min (>60) Glucose Level 112 MG/DL (74-106) Calcium Level 7.4 MG/DL (8.5-10.1) Height (Feet): 5 Height (Inches): 2.00 Weight (Pounds): 149 Objective Physical Exam: Vitals: reviewed General Appearance: NAD HEENT: normocephalic, atraumatic Respiratory/Chest: normal breath sounds bilaterally Cardiovascular/Chest: normal peripheral pulses, normal rate Abdomen: normal bowel sounds, soft, nontender Extremities: normal range of motion Anthony Chaudhary MD Jul 04, 2019 18:30
--- NOTE | 2019-07-04 19:26 | NUR ---
HAND-OFF: Report given to ROMAIN Reynolds.
--- NOTE | 2019-07-04 19:27 | NUR ---
NURSE NOTES: Received report from ROMAIN Arnold. Pt is awake and resting in bed. In no acute distress. Bed in lowest position, call light within reach. Will continue plan of care.
[2019-07-04] MEDS: Dyna-Hex 2% Top Sol 2oz TOPIC SCH (21:27)
[2019-07-05] VITALS: BP 118/64
[2019-07-05 04:00] VITALS: BP 118/67
[2019-07-05 05:56] LABS: HEMATOCRIT 27.5 % (37.0-47.0); HEMOGLOBIN 9.1 G/DL (12.0-16.0); MEAN CORPUSCULAR VOLUME 93 FL (80-99); PLATELET COUNT 68 K/UL (150-450); RED BLOOD COUNT 2.96 M/UL (4.20-5.40); RED CELL DISTRIBUTION WIDTH 16.5 % (11.6-14.8); WHITE BLOOD COUNT 11.5 K/UL (4.8-10.8)
[2019-07-05] MEDS: Vancomycin oral 125mg/2.5ml ORAL SCH ×4 (06:24→23:44)
[2019-07-05 06:25] LABS: ANION GAP 7 mmol/L (5-15); BLOOD UREA NITROGEN 28 mg/dL (7-18); CALCIUM 7.1 MG/DL (8.5-10.1); CARBON DIOXIDE 19 MMOL/L (21-32); CHLORIDE 111 MMOL/L (98-107); CREATININE 0.7 MG/DL (0.55-1.30); POTASSIUM 4.1 MMOL/L (3.5-5.1); SODIUM 137 MMOL/L (136-145)
[2019-07-05] MEDS: NovoLOG Insulin Flexpen SUBQ SCH ×4 (06:30→21:35)
--- NOTE | 2019-07-05 07:31 | NUR ---
HAND-OFF: Report given to ROMAIN Mcleod.
[2019-07-05 08:00] VITALS: BP 116/65
--- NOTE | 2019-07-05 08:07 | NUR ---
NURSE NOTES: pt is in bed being feed breakfast by equity research analyst. Pt on clinical admissions manager, no signs of cardiac or respiratory distress. Bed in lowest position and locked. Call light is within reach. pt will have a video swallow test today.
--- NOTE | 2019-07-05 09:04 | Hematology/Onc Progress Note ---
Assessment/Plan Assessment/Plan Assessment and Recs: # Anemia of GI bleed -- patient presents with occult+ bleeding, anemia panel reviewed iron stores are moderate but given 4 units prbc, can be falsely moderate, recheck in several days, anemia is due to variceal bleed --> as per GI eval, may need endoscopy --> has been started on ppi --> cea has been ordered - normal --> Hgb goal >7. Transfuse prn. --> (s/p 4 units prbc) --> Iron x 1 dose has been orderd --> Medications have been reviewed --> continue ppi and octreotide prn per gi --> hgb trend 8.8-->8.8-->8.2-->7.2->9.6-->9.1 # Thrombocytopenia - potential causes multifactorial, evaluate liver and viral etiologies to begin, also could be related to underlying medications patient has received. In this case is due to etoh abuse, esoph varices and cirrhosis is noted, also potential c.diff infection --> Hep panel pending and HIV negative --> US abd does show cirrhosis --> Peripheral smear ordered to evaluate for blasts /schistocytes does not show any --> abx and other meds have been reviewed --> ok for ppx if plt >50k w/ either heparin or lovenox --> Transfuse if Plt < 20k and fever, or if Plt < 10k without fever --> plt count 90k-->46k-->63k-->68k --> EGD per gi --> s/p plt transfusion on 06/29 # Varices, esophageal --> potential rupture as per gi recs # Cirrhosis --> with hepatic enceph --> gi recs prn # Resp failure --> was intubated --> now extubated on # Hypokalemia with dec K --> given IV k as per pcp The timing of this note does not necessarily reflect the time of the patient was seen. GREATLY APPRECIATE CONSULTATION. Subjective HEENT: Denies: no symptoms, eye pain, blurred vision, tearing, double vision, ear pain, ear discharge, nose pain, nose congestion, throat pain, throat swelling, mouth pain, mouth swelling, other Cardiovascular: Denies: no symptoms, chest pain, edema, irregular heart rate, lightheadedness, palpitations, syncope, other Respiratory: Denies: no symptoms, cough, shortness of breath, SOB with excertion, SOB at rest, sputum, wheezing, other Gastrointestinal/Abdominal: Denies: no symptoms, abdomen distended, abdominal pain, black stools, tarry stools, blood in stool, constipated, diarrhea, difficulty swallowing, nausea, poor appetite, poor fluid intake, rectal bleeding , vomiting, other Genitourinary: Denies: no symptoms, burning, discharge, frequency, flank pain, hematuria, incontinence, pain, urgency, other Neurologic/Psychiatric: Denies: no symptoms, anxiety, depressed, emotional problems, headache, numbness, paresthesia, pre-existing deficit, seizure, tingling, tremors, weakness, other Endocrine: Denies: no symptoms, excessive sweating, flushing, intolerance to cold, intolerance to heat, increased hunger, increased thirst, increased urine, unexplained weight gain, unexplained weight loss, other Hematologic/Lymphatic: Denies: no symptoms, anemia, easy bleeding, easy bruising, adenopathy, other Allergies: Coded Allergies: No Known Allergies (Unverified , 06/27/19) Subjective 06/29: icu, s/p egd and plt tx, levo gtt 07/01: remains on vent, ivelisse Montero rn, with c. 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 with alarm installation technician, no f/c, no night sweats Objective Objective Current Medications Medications (Trade) Dose Ordered Sig/Naseem Route PRN Reason Start Time Stop Time Status Last Admin Dose Admin Ceftriaxone Sodium 1 gm/ Sodium Chloride 55 ml @ 110 mls/hr DAILY IVPB 07/05/19 09:00 07/09/19 08:59 Chlorhexidine Gluconate (Mer-Hex 2%) 1 applic DAILY@1999 TOPIC 07/04/19 20:00 08/01/19 19:59 07/04/19 21:27 Dextrose (Dextrose 50%) 25 ml Q30M PRN IV Hypoglycemia 07/04/19 16:00 07/28/19 04:59 Dextrose (Dextrose 50%) 50 ml Q30M PRN IV Hypoglycemia 07/04/19 16:00 07/28/19 04:59 Famotidine (Pepcid I.v.) 20 mg Q12HR IVP 07/04/19 21:00 08/01/19 20:59 07/04/19 21:27 Insulin Aspart (NovoLOG) BEFORE MEALS AND HS SUBQ 07/04/19 16:30 07/28/19 06:29 07/05/19 06:30 Metronidazole 100 ml @ 100 mls/hr Q8HR IVPB 07/04/19 22:00 07/08/19 13:59 07/05/19 06:24 Morphine Sulfate (Morphine Sulfate) 2 mg Q4H PRN IVP For Pain 07/04/19 15:43 07/11/19 15:42 Ondansetron HCl (Zofran) 4 mg Q6H PRN IVP Nausea & Vomiting 07/04/19 15:43 08/03/19 15:42 Sodium Chloride 1,000 ml @ 50 mls/hr Q20H IV 07/04/19 15:42 08/03/19 15:41 07/04/19 19:00 Vancomycin HCl (Firvanq) 125 mg Q6HR ORAL 07/04/19 18:00 07/11/19 17:59 07/05/19 06:24 Vancomycin HCl (Vanco rx to dose) 1 ea DAILY PRN MISC Per rx protocol 07/05/19 09:00 08/01/19 12:29 Vancomycin HCl 750 mg/Sodium Chloride 275 ml @ 183.333 mls/hr Q24H IVPB 07/05/19 14:00 07/08/19 13:59 Last 24 Hour Vital Signs Date Time Temp Pulse Resp B/P (MAP) Pulse Ox O2 Delivery O2 Flow Rate FiO2 07/05/19 08:00 97.4 99 18 116/65 (82) 94 07/05/19 08:00 97.4 99 18 116/65 (82) 94 07/05/19 04:00 97 07/05/19 04:00 98.1 97 19 118/67 (84) 96 07/05/19 00:00 92 07/05/19 00:00 98.2 92 19 118/64 (82) 98 07/04/19 21:00 Room Air 07/04/19 20:00 95 07/04/19 20:00 95 Room Air 21 07/04/19 20:00 97.4 95 19 115/64 (81) 95 07/04/19 16:00 Room Air 07/04/19 16:00 96 07/04/19 15:00 95 21 115/48 (70) 97 07/04/19 14:00 101 21 124/54 (77) 96 07/04/19 13:00 95 19 111/51 (71) 97 07/04/19 12:00 93 07/04/19 12:00 Room Air 07/04/19 12:00 98.3 99 17 107/62 (77) 98 07/04/19 11:00 92 17 109/43 (65) 99 07/04/19 10:00 90 14 94/51 (65) 98 07/04/19 09:00 89 17 105/52 (69) 98 07/04/19 08:00 Nasal Cannula 2.0 Simple Mask 2.0 07/04/19 08:00 90 07/04/19 08:00 98.3 91 17 107/58 (74) 100 07/04/19 07:00 90 18 92/65 (74) 99 07/04/19 06:30 100 Nasal Cannula 2.0 28 07/04/19 06:00 91 16 115/56 (75) 100 07/04/19 05:00 87 16 102/51 (68) 100 07/04/19 04:00 98.5 87 14 97/53 (68) 99 07/04/19 04:00 Simple Mask 2.0 Simple Mask 2.0 07/04/19 04:00 88 07/04/19 03:00 88 15 106/52 (70) 100 07/04/19 02:00 85 13 99/53 (68) 100 07/04/19 01:00 87 17 109/49 (69) 100 07/04/19 00:09 84 07/04/19 00:06 Simple Mask 2.0 Simple Mask 2.0 07/04/19 00:04 98.4 103/53 (70) 07/03/19 23:00 85 14 109/51 (70) 100 07/03/19 22:00 86 15 110/50 (70) 93 07/03/19 21:00 86 14 109/47 (67) 99 07/03/19 20:00 98.7 86 18 103/47 (65) 100 07/03/19 20:00 Venturi Mask Venturi Mask 07/03/19 20:00 87 07/03/19 19:22 100 Cool Aerosol 12.0 40 07/03/19 19:00 87 20 109/45 (66) 100 07/03/19 18:00 87 17 101/46 (64) 100 07/03/19 17:00 88 17 108/49 (68) 100 07/03/19 16:00 98.2 90 15 111/45 (67) 100 07/03/19 16:00 90 07/03/19 16:00 Venturi Mask Venturi Mask 07/03/19 15:00 91 15 110/49 (69) 100 07/03/19 14:00 96 21 115/52 (73) 100 07/03/19 13:20 T-piece 12.0 40 07/03/19 13:20 100 Cool Aerosol 12.0 40 07/03/19 13:00 102 20 129/60 (83) 100 07/03/19 12:00 98.3 98 22 116/57 (76) 99 07/03/19 12:00 102 07/03/19 12:00 Mechanical Ventilator 07/03/19 12:00 40 07/03/19 11:15 106 24 40 07/03/19 11:00 99 22 116/52 (73) 99 07/03/19 10:30 111/67 07/03/19 10:04 94 22 40 40 07/03/19 10:04 100 07/03/19 10:00 89 16 111/67 (82) 100 Intake and Output 07/04/19 07/05/19 19:00 07:00 Intake Total 1355 ml 820 ml Output Total 260 ml 750 ml Balance 1095 ml 70 ml Intake Oral 650 ml 120 ml IV Total 705 ml 700 ml Output Urine Total 260 ml 750 ml # Bowel Movements 3 Labs Test 07/03/19 04:00 07/03/19 12:25 07/03/19 14:15 07/04/19 04:30 White Blood Count 7.1 K/UL (4.8-10.8) 10.8 K/UL (4.8-10.8) Red Blood Count 2.88 M/UL (4.20-5.40) 3.13 M/UL (4.20-5.40) Hemoglobin 8.9 G/DL (12.0-16.0) 9.6 G/DL (12.0-16.0) Hematocrit 26.9 % (37.0-47.0) 29.3 % (37.0-47.0) Mean Corpuscular Volume 93 FL (80-99) 94 FL (80-99) Mean Corpuscular Hemoglobin 31.1 PG (27.0-31.0) 30.8 PG (27.0-31.0) Mean Corpuscular Hemoglobin Concent 33.3 G/DL (32.0-36.0) 32.9 G/DL (32.0-36.0) Red Cell Distribution Width 16.0 % (11.6-14.8) 16.6 % (11.6-14.8) Platelet Count 57 K/UL (150-450) 63 K/UL (150-450) Mean Platelet Volume 8.1 FL (6.5-10.1) 7.5 FL (6.5-10.1) Neutrophils (%) (Auto) % (45.0-75.0) % (45.0-75.0) Lymphocytes (%) (Auto) % (20.0-45.0) % (20.0-45.0) Monocytes (%) (Auto) % (1.0-10.0) % (1.0-10.0) Eosinophils (%) (Auto) % (0.0-3.0) % (0.0-3.0) Basophils (%) (Auto) % (0.0-2.0) % (0.0-2.0) Differential Total Cells Counted 100 Neutrophils % (Manual) 92 % (45-75) Lymphocytes % (Manual) 2 % (20-45) Monocytes % (Manual) 5 % (1-10) Eosinophils % (Manual) 1 % (0-3) Basophils % (Manual) 0 % (0-2) Band Neutrophils 0 % (0-8) Platelet Estimate Decreased Platelet Morphology Normal Prothrombin Time 15.2 SEC (9.30-11.50) Prothromb Time International Ratio 1.5 (0.9-1.1) Sodium Level 144 MMOL/L (136-145) 145 MMOL/L (136-145) Potassium Level 3.9 MMOL/L (3.5-5.1) 4.2 MMOL/L (3.5-5.1) Chloride Level 115 MMOL/L (98-107) 116 MMOL/L (98-107) Carbon Dioxide Level 19 MMOL/L (21-32) 19 MMOL/L (21-32) Anion Gap 10 mmol/L (5-15) 10 mmol/L (5-15) Blood Urea Nitrogen 32 mg/dL (7-18) 26 mg/dL (7-18) Creatinine 0.7 MG/DL (0.55-1.30) 0.5 MG/DL (0.55-1.30) Estimat Glomerular Filtration Rate > 60 mL/min (>60) > 60 mL/min (>60) Glucose Level 142 MG/DL (74-106) 112 MG/DL (74-106) Calcium Level 7.2 MG/DL (8.5-10.1) 7.4 MG/DL (8.5-10.1) Total Bilirubin 3.5 MG/DL (0.2-1.0) Direct Bilirubin 1.5 MG/DL (0.0-0.3) Aspartate Amino Transf (AST/SGOT) 105 U/L (15-37) Alanine Aminotransferase (ALT/SGPT) 361 U/L (12-78) Alkaline Phosphatase 129 U/L (46-116) Total Protein 4.3 G/DL (6.4-8.2) Albumin 1.6 G/DL (3.4-5.0) Globulin 2.7 g/dL Albumin/Globulin Ratio 0.6 (1.0-2.7) Arterial Blood pH 7.371 (7.350-7.450) Arterial Blood Partial Pressure CO2 29.4 mmHg (35.0-45.0) Arterial Blood Partial Pressure O2 78.9 mmHg (75.0-100.0) Arterial Blood HCO3 16.7 mmol/L (22.0-26.0) Arterial Blood Oxygen Saturation 95.1 % (95-100) Arterial Blood Base Excess -7.5 (-2-2) James Test Positive Body Fluid Albumin <0.2 g/dL (.) Test 07/05/19 05:00 White Blood Count 11.5 K/UL (4.8-10.8) Red Blood Count 2.96 M/UL (4.20-5.40) Hemoglobin 9.1 G/DL (12.0-16.0) Hematocrit 27.5 % (37.0-47.0) Mean Corpuscular Volume 93 FL (80-99) Mean Corpuscular Hemoglobin 30.9 PG (27.0-31.0) Mean Corpuscular Hemoglobin Concent 33.3 G/DL (32.0-36.0) Red Cell Distribution Width 16.5 % (11.6-14.8) Platelet Count 68 K/UL (150-450) Mean Platelet Volume 7.6 FL (6.5-10.1) Neutrophils (%) (Auto) % (45.0-75.0) Lymphocytes (%) (Auto) % (20.0-45.0) Monocytes (%) (Auto) % (1.0-10.0) Eosinophils (%) (Auto) % (0.0-3.0) Basophils (%) (Auto) % (0.0-2.0) Sodium Level 137 MMOL/L (136-145) Potassium Level 4.1 MMOL/L (3.5-5.1) Chloride Level 111 MMOL/L (98-107) Carbon Dioxide Level 19 MMOL/L (21-32) Anion Gap 7 mmol/L (5-15) Blood Urea Nitrogen 28 mg/dL (7-18) Creatinine 0.7 MG/DL (0.55-1.30) Estimat Glomerular Filtration Rate > 60 mL/min (>60) Glucose Level 129 MG/DL (74-106) Calcium Level 7.1 MG/DL (8.5-10.1) Height (Feet): 5 Height (Inches): 2.00 Weight (Pounds): 145 Objective Physical Exam: Vitals: reviewed General Appearance: NAD HEENT: normocephalic, atraumatic Respiratory/Chest: normal breath sounds bilaterally Cardiovascular/Chest: normal peripheral pulses, normal rate Abdomen: normal bowel sounds, soft, nontender Extremities: normal range of motion Anthony Chaudhary MD Jul 05, 2019 09:04
--- NOTE | 2019-07-05 09:31 | NUR ---
NURSE NOTES: notified Pharmacy missing ceftriaxone, pharmacy will send it.
--- NOTE | 2019-07-05 10:21 | Pulmonology Progress Note ---
Assessment/Plan Assessment/Plan IMPRESSION: 1. Respiratory failure. Resolved. Extubated 07/03/19 2. Upper GI bleed, likely gastric varices. S/p EGD 3. Diabetes mellitus. 4. Anemia. Hgb stable 5. Thrombocytopenia; 6. Likely hepatic encephalopathy; continue lactulose; has C diff + DISCUSSION: Continue IV fluids. Low flow O2 Continue lactulose Abx for C diff James Zeng M.D. Subjective Interval Events: None new Constitutional: Reports: no symptoms HEENT: Repors: no symptoms Respiratory: Reports: no symptoms Cardiovascular: Reports: no symptoms Gastrointestinal/Abdominal: Reports: no symptoms Allergies: Coded Allergies: No Known Allergies (Unverified , 06/27/19) Objective Last 24 Hour Vital Signs Date Time Temp Pulse Resp B/P (MAP) Pulse Ox O2 Delivery O2 Flow Rate FiO2 07/05/19 08:00 97.4 99 18 116/65 (82) 94 07/05/19 08:00 97.4 99 18 116/65 (82) 94 07/05/19 04:00 97 07/05/19 04:00 98.1 97 19 118/67 (84) 96 07/05/19 00:00 92 07/05/19 00:00 98.2 92 19 118/64 (82) 98 07/04/19 21:00 Room Air 07/04/19 20:00 95 07/04/19 20:00 95 Room Air 21 07/04/19 20:00 97.4 95 19 115/64 (81) 95 07/04/19 16:00 Room Air 07/04/19 16:00 96 07/04/19 15:00 95 21 115/48 (70) 97 07/04/19 14:00 101 21 124/54 (77) 96 07/04/19 13:00 95 19 111/51 (71) 97 07/04/19 12:00 93 07/04/19 12:00 Room Air 07/04/19 12:00 98.3 99 17 107/62 (77) 98 07/04/19 11:00 92 17 109/43 (65) 99 Intake and Output 07/04/19 07/05/19 19:00 07:00 Intake Total 1355 ml 820 ml Output Total 260 ml 750 ml Balance 1095 ml 70 ml Intake Oral 650 ml 120 ml IV Total 705 ml 700 ml Output Urine Total 260 ml 750 ml # Bowel Movements 3 General Appearance: no acute distress HEENT: normocephalic Respiratory/Chest: chest wall non-tender, lungs clear Cardiovascular: normal peripheral pulses, normal rate Microbiology Date/Time Source Procedure Growth Status 07/03/19 14:15 Abdominal Fluid Gram Stain - Final Resulted 07/03/19 14:15 Abdominal Fluid Body Fluid Culture - Preliminary Resulted Laboratory Tests 07/05/19 05:00: White Blood Count 11.5H, Red Blood Count 2.96L, Hemoglobin 9.1L, Hematocrit 27.5L, Mean Corpuscular Volume 93, Mean Corpuscular Hemoglobin 30.9, Mean Corpuscular Hemoglobin Concent 33.3, Red Cell Distribution Width 16.5H, Platelet Count 68L, Mean Platelet Volume 7.6, Neutrophils (%) (Auto) , Lymphocytes (%) (Auto) , Monocytes (%) (Auto) , Eosinophils (%) (Auto) , Basophils (%) (Auto) , Differential Total Cells Counted 100, Neutrophils % ( Manual) 97H, Lymphocytes % (Manual) 1L, Monocytes % (Manual) 2, Eosinophils % ( Manual) 0, Basophils % (Manual) 0, Band Neutrophils 0, Platelet Estimate DecreasedL, Platelet Morphology Normal, Polychromasia Occasional, Anisocytosis 2 +, Sodium Level 137, Potassium Level 4.1, Chloride Level 111H, Carbon Dioxide Level 19L, Anion Gap 7, Blood Urea Nitrogen 28H, Creatinine 0.7, Estimat Glomerular Filtration Rate > 60, Glucose Level 129H, Calcium Level 7.1L Current Medications Medications (Trade) Dose Ordered Sig/Naseem Route PRN Reason Start Time Stop Time Status Last Admin Dose Admin Ceftriaxone Sodium 1 gm/ Sodium Chloride 55 ml @ 110 mls/hr DAILY IVPB 07/05/19 09:00 07/09/19 08:59 Chlorhexidine Gluconate (Mer-Hex 2%) 1 applic DAILY@1999 TOPIC 07/04/19 20:00 08/01/19 19:59 07/04/19 21:27 Dextrose (Dextrose 50%) 25 ml Q30M PRN IV Hypoglycemia 07/04/19 16:00 07/28/19 04:59 Dextrose (Dextrose 50%) 50 ml Q30M PRN IV Hypoglycemia 07/04/19 16:00 07/28/19 04:59 Famotidine (Pepcid I.v.) 20 mg Q12HR IVP 07/04/19 21:00 08/01/19 20:59 07/05/19 09:33 Insulin Aspart (NovoLOG) BEFORE MEALS AND HS SUBQ 07/04/19 16:30 07/28/19 06:29 07/05/19 06:30 Iron Sucrose 200 mg/Sodium Chloride 120 ml @ 240 mls/hr ONCE ONCE IV 07/05/19 11:00 07/05/19 11:29 Metronidazole 100 ml @ 100 mls/hr Q8HR IVPB 07/04/19 22:00 07/08/19 13:59 07/05/19 06:24 Morphine Sulfate (Morphine Sulfate) 2 mg Q4H PRN IVP For Pain 07/04/19 15:43 07/11/19 15:42 Ondansetron HCl (Zofran) 4 mg Q6H PRN IVP Nausea & Vomiting 07/04/19 15:43 08/03/19 15:42 Sodium Chloride 1,000 ml @ 50 mls/hr Q20H IV 07/04/19 15:42 08/03/19 15:41 07/04/19 19:00 Vancomycin HCl (Firvanq) 125 mg Q6HR ORAL 07/04/19 18:00 07/11/19 17:59 07/05/19 06:24 Vancomycin HCl (Vanco rx to dose) 1 ea DAILY PRN MISC Per rx protocol 07/05/19 09:00 08/01/19 12:29 Vancomycin HCl 750 mg/Sodium Chloride 275 ml @ 183.333 mls/hr Q24H IVPB 07/05/19 14:00 07/08/19 13:59 James Zeng MD Jul 05, 2019 10:21
[2019-07-05] MEDS: cefTRIAXone 1 GM in NS 55 ML IVPB SCH (10:45)
--- NOTE | 2019-07-05 10:45 | NUR ---
PT EVALUATION NOTE Patient seen for initial evaluation, see complete evaluation for details. Patient presents with generalized weakness and impaired balance which affects patient's ability to perform mobility tasks. Patient requires max assist for bed mobility and min assist to maintain sitting at the EOB. Patient is unable to transfer OOB or ambulate at this time. Patient will benefit from skilled inpatient PT intervention to address strength, balance, safety and functional mobility. Recommend discharge to SNF for further rehab once medically cleared by MD. DME needs to be determined based on patient's progress and discharge disposition. Addendum: 07/05/19 at 1244 by DEJA OCONNOR PT Amended: Links added.
[2019-07-05] MEDS ORDERED: Iron Sucrose 200 MG in NS 110 ML IV ONE (11:00)
[2019-07-05 12:00] VITALS: BP 112/58
--- NOTE | 2019-07-05 12:08 | Surgery Progress Note ---
Surgery Progress Note Subjective Additional Comments afebrile, HD stable slight leukocytosis today exam unchanged and stable. Objective Last 24 Hour Vital Signs Date Time Temp Pulse Resp B/P (MAP) Pulse Ox O2 Delivery O2 Flow Rate FiO2 07/05/19 08:00 99 07/05/19 08:00 97.4 99 18 116/65 (82) 94 07/05/19 08:00 97.4 99 18 116/65 (82) 94 07/05/19 04:00 97 07/05/19 04:00 98.1 97 19 118/67 (84) 96 07/05/19 00:00 92 07/05/19 00:00 98.2 92 19 118/64 (82) 98 07/04/19 21:00 Room Air 07/04/19 20:00 95 07/04/19 20:00 95 Room Air 21 07/04/19 20:00 97.4 95 19 115/64 (81) 95 07/04/19 16:00 Room Air 07/04/19 16:00 96 07/04/19 15:00 95 21 115/48 (70) 97 07/04/19 14:00 101 21 124/54 (77) 96 07/04/19 13:00 95 19 111/51 (71) 97 I&O Intake and Output 07/04/19 07/05/19 19:00 07:00 Intake Total 1355 ml 820 ml Output Total 260 ml 750 ml Balance 1095 ml 70 ml Intake Oral 650 ml 120 ml IV Total 705 ml 700 ml Output Urine Total 260 ml 750 ml # Bowel Movements 3 Cardiovascular: RSR Respiratory: clear Abdomen: soft, non-tender, present bowel sounds, non-distended Extremities: no cyanosis Laboratory Tests Test 07/05/19 05:00 White Blood Count 11.5 K/UL (4.8-10.8) H Red Blood Count 2.96 M/UL (4.20-5.40) L Hemoglobin 9.1 G/DL (12.0-16.0) L Hematocrit 27.5 % (37.0-47.0) L Mean Corpuscular Volume 93 FL (80-99) Mean Corpuscular Hemoglobin 30.9 PG (27.0-31.0) Mean Corpuscular Hemoglobin Concent 33.3 G/DL (32.0-36.0) Red Cell Distribution Width 16.5 % (11.6-14.8) H Platelet Count 68 K/UL (150-450) L Mean Platelet Volume 7.6 FL (6.5-10.1) Neutrophils (%) (Auto) % (45.0-75.0) Lymphocytes (%) (Auto) % (20.0-45.0) Monocytes (%) (Auto) % (1.0-10.0) Eosinophils (%) (Auto) % (0.0-3.0) Basophils (%) (Auto) % (0.0-2.0) Differential Total Cells Counted 100 Neutrophils % (Manual) 97 % (45-75) H Lymphocytes % (Manual) 1 % (20-45) L Monocytes % (Manual) 2 % (1-10) Eosinophils % (Manual) 0 % (0-3) Basophils % (Manual) 0 % (0-2) Band Neutrophils 0 % (0-8) Platelet Estimate Decreased L Platelet Morphology Normal Polychromasia Occasional Anisocytosis 2+ Sodium Level 137 MMOL/L (136-145) Potassium Level 4.1 MMOL/L (3.5-5.1) Chloride Level 111 MMOL/L (98-107) H Carbon Dioxide Level 19 MMOL/L (21-32) L Anion Gap 7 mmol/L (5-15) Blood Urea Nitrogen 28 mg/dL (7-18) H Creatinine 0.7 MG/DL (0.55-1.30) Estimat Glomerular Filtration Rate > 60 mL/min (>60) Glucose Level 129 MG/DL (74-106) H Calcium Level 7.1 MG/DL (8.5-10.1) L Plan Problems: (1) Cirrhosis (2) Varices, esophageal (3) GI bleed Assessment & Plan: 69F with acute GI bleed. etiology likely prior varices anemia on admission and transfused extubated and improving downgraded comfortable EGD noted okay for diet iv fluids PPI prognosis still guarded will follow with recs thank you (4) Acute GI bleeding Zaid Wong Jul 05, 2019 12:08
--- NOTE | 2019-07-05 12:19 | GI Progress Note ---
Assessment/Plan Problems: (1) Acute GI bleeding ICD Codes: K92.2 - Gastrointestinal hemorrhage, unspecified SNOMED: 96317533 (2) GI bleed ICD Codes: K92.2 - Gastrointestinal hemorrhage, unspecified SNOMED: 75232142 (3) Varices, esophageal ICD Codes: I85.00 - Esophageal varices without bleeding SNOMED: 78676914 (4) Cirrhosis ICD Codes: K74.60 - Unspecified cirrhosis of liver SNOMED: 40717230 Status: progressing Status Narrative Discussed with Dr. Garcia. Assessment/Plan Assessment - Cirrhosis - UGIB due to esophageal varicies s/p banding - C Diff, on IV flagyl (no oral access for PO vanco at this time) - Resp failure - anemia - lactic acidosis - leukocytosis - guarded - s/p paracentesis Recommendations - serial CBC - transfuse PRN to keep Hg > 7 - on diet - extubated yesterday - H2B - dc octreotide - IV abx The patient was seen and examined at bedside and all new and available data was reviewed in the patients chart. I agree with the above findings, impression and plan. (Patient seen earlier today. Signature stamp does not reflect patient encounter time.). - Mina Garcia MD Subjective Gastrointestinal/Abdominal: Reports: no symptoms Subjective limited Objective Last 24 Hour Vital Signs Date Time Temp Pulse Resp B/P (MAP) Pulse Ox O2 Delivery O2 Flow Rate FiO2 07/05/19 08:00 99 07/05/19 08:00 97.4 99 18 116/65 (82) 94 07/05/19 08:00 97.4 99 18 116/65 (82) 94 07/05/19 04:00 97 07/05/19 04:00 98.1 97 19 118/67 (84) 96 07/05/19 00:00 92 07/05/19 00:00 98.2 92 19 118/64 (82) 98 07/04/19 21:00 Room Air 07/04/19 20:00 95 07/04/19 20:00 95 Room Air 21 07/04/19 20:00 97.4 95 19 115/64 (81) 95 07/04/19 16:00 Room Air 07/04/19 16:00 96 07/04/19 15:00 95 21 115/48 (70) 97 07/04/19 14:00 101 21 124/54 (77) 96 07/04/19 13:00 95 19 111/51 (71) 97 Intake and Output 07/04/19 07/05/19 19:00 07:00 Intake Total 1355 ml 820 ml Output Total 260 ml 750 ml Balance 1095 ml 70 ml Intake Oral 650 ml 120 ml IV Total 705 ml 700 ml Output Urine Total 260 ml 750 ml # Bowel Movements 3 Laboratory Tests Test 07/05/19 05:00 White Blood Count 11.5 K/UL (4.8-10.8) H Red Blood Count 2.96 M/UL (4.20-5.40) L Hemoglobin 9.1 G/DL (12.0-16.0) L Hematocrit 27.5 % (37.0-47.0) L Mean Corpuscular Volume 93 FL (80-99) Mean Corpuscular Hemoglobin 30.9 PG (27.0-31.0) Mean Corpuscular Hemoglobin Concent 33.3 G/DL (32.0-36.0) Red Cell Distribution Width 16.5 % (11.6-14.8) H Platelet Count 68 K/UL (150-450) L Mean Platelet Volume 7.6 FL (6.5-10.1) Neutrophils (%) (Auto) % (45.0-75.0) Lymphocytes (%) (Auto) % (20.0-45.0) Monocytes (%) (Auto) % (1.0-10.0) Eosinophils (%) (Auto) % (0.0-3.0) Basophils (%) (Auto) % (0.0-2.0) Differential Total Cells Counted 100 Neutrophils % (Manual) 97 % (45-75) H Lymphocytes % (Manual) 1 % (20-45) L Monocytes % (Manual) 2 % (1-10) Eosinophils % (Manual) 0 % (0-3) Basophils % (Manual) 0 % (0-2) Band Neutrophils 0 % (0-8) Platelet Estimate Decreased L Platelet Morphology Normal Polychromasia Occasional Anisocytosis 2+ Sodium Level 137 MMOL/L (136-145) Potassium Level 4.1 MMOL/L (3.5-5.1) Chloride Level 111 MMOL/L (98-107) H Carbon Dioxide Level 19 MMOL/L (21-32) L Anion Gap 7 mmol/L (5-15) Blood Urea Nitrogen 28 mg/dL (7-18) H Creatinine 0.7 MG/DL (0.55-1.30) Estimat Glomerular Filtration Rate > 60 mL/min (>60) Glucose Level 129 MG/DL (74-106) H Calcium Level 7.1 MG/DL (8.5-10.1) L Height (Feet): 5 Height (Inches): 2.00 Weight (Pounds): 145 General Appearance: WD/WN, no apparent distress, alert Cardiovascular: normal rate Respiratory/Chest: normal breath sounds, no respiratory distress Abdominal Exam: normal bowel sounds, non tender, soft Extremities: normal range of motion, non-tender Luisana Walker NP Jul 05, 2019 12:19
[2019-07-05] MEDS ORDERED: Tubing IV Secondary IV ONE (12:23)
[2019-07-05] MEDS: Vancomycin 750 MG in NS 275 ML IVPB SCH (13:28)
--- NOTE | 2019-07-05 14:09 | Infectious Diseases Prog Note ---
Assessment/Plan Assessment/Plan ASSESSMENT AND PLAN: 1. mrsa pna, sepsis, shock, c.diff. +, leukocytosis, fevers, respiratory failure , ? sbp - vancomycin, rocephin, flagyl, po vancomycin - f/u on labs, chest x-ray. paracentesis as indicated - supportive care, extubated, now in telemetry - recheck sputum culture for worsening chest x-ray - d/w RN 2. GI bleed. 3. Anemia. 4. H. pylori infection. 5. Diabetes. 6. Esophageal varices. 7. Respiratory failure. 8. Anemia and thrombocytopenia. 9. Liver cirrhosis. 10. Continue treatment per primary consultants. 11. No known drug allergies. 12. Social history is negative. 13. Family history is noncontributory. 14. MAR was noted. 15. Case was discussed with RN. 16. Case was discussed with Dr. Hunter Subjective Constitutional: Denies: fever HEENT: Denies: congestion Respiratory: Denies: shortness of breath Cardiovascular: Denies: chest pain Gastrointestinal/Abdominal: Denies: nausea, vomiting, diarrhea Genitourinary: Reports: other - + jackson Neurologic: Denies: headache Psychiatric: Denies: depression Skin: Denies: rash Hematologic: Denies: bleeding Musculoskeletal: Denies: pain Allergies: Coded Allergies: No Known Allergies (Unverified , 06/27/19) Objective Vital Signs Last 24 Hour Vital Signs Date Time Temp Pulse Resp B/P (MAP) Pulse Ox O2 Delivery O2 Flow Rate FiO2 07/05/19 08:00 99 07/05/19 08:00 97.4 99 18 116/65 (82) 94 07/05/19 08:00 97.4 99 18 116/65 (82) 94 07/05/19 04:00 97 07/05/19 04:00 98.1 97 19 118/67 (84) 96 07/05/19 00:00 92 07/05/19 00:00 98.2 92 19 118/64 (82) 98 07/04/19 21:00 Room Air 07/04/19 20:00 95 07/04/19 20:00 95 Room Air 21 07/04/19 20:00 97.4 95 19 115/64 (81) 95 07/04/19 16:00 Room Air 07/04/19 16:00 96 07/04/19 15:00 95 21 115/48 (70) 97 Height (Feet): 5 Height (Inches): 2.00 Weight (Pounds): 145 General Appearance: no acute distress HEENT: normocephalic, atraumatic, anicteric, mucous membranes moist Respiratory/Chest: crackles/rales, rhonchi - bilaterally Cardiovascular: normal rate, regular rhythm, no gallop/murmur, no JVD Abdomen: normal bowel sounds, soft, non tender, no organomegaly, non distended Genitourinary: other - + jackson - urine clear Extremities: no cyanosis Skin: no rash 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 Endotracheal tube has been pulled back and is now 2 cm above the halima in good position. 2. Improved lung volumes. Mild increased vascular interstitial prominence. Abdominal US: Impression: Evidence of hepatic cirrhosis, with coarsened hepatic echogenicity and surface nodularity Evidence of portal hypertension, with ascites, hepatic hilar varices, and abnormal portal venous flow No gallstones. Gallbladder wall is markedly thickened. This is probably edema due to the hepatic abnormalities. Acalculous acute cholecystitis or cholecystitis secondary to occult stone disease excludable, and hepatobiliary nuclear scan could be considered if there is high clinical suspicion Left renal cyst Node inability to visualize the pancreas and portions of the abdominal aorta Chest x-ray - 07/03/19 - Impression: New/increased bilateral basilar atelectatic changes and possible right basilar consolidation, over 3 days Other findings as noted Microbiology Date/Time Source Procedure Growth Status 06/29/19 17:15 Blood Blood Culture - Final NO GROWTH AFTER 5 DAYS Complete 06/30/19 18:00 Sputum Induced Gram Stain - Final Complete 06/30/19 18:00 Sputum Culture - Final Staphylococcus Aureus - Mrsa Usual Respiratory Araceli Complete 06/30/19 14:50 Stool Clostridium difficile Toxin Assay - Final Complete 07/03/19 14:15 Abdominal Fluid Gram Stain - Final Resulted 07/03/19 14:15 Abdominal Fluid Body Fluid Culture - Preliminary Resulted Microbiology Date/Time Source Procedure Growth Status 07/03/19 14:15 Abdominal Fluid Gram Stain - Final Resulted 07/03/19 14:15 Abdominal Fluid Body Fluid Culture - Preliminary Resulted Laboratory Tests Test 07/05/19 05:00 07/05/19 13:10 White Blood Count 11.5 K/UL (4.8-10.8) H Red Blood Count 2.96 M/UL (4.20-5.40) L Hemoglobin 9.1 G/DL (12.0-16.0) L Hematocrit 27.5 % (37.0-47.0) L Mean Corpuscular Volume 93 FL (80-99) Mean Corpuscular Hemoglobin 30.9 PG (27.0-31.0) Mean Corpuscular Hemoglobin Concent 33.3 G/DL (32.0-36.0) Red Cell Distribution Width 16.5 % (11.6-14.8) H Platelet Count 68 K/UL (150-450) L Mean Platelet Volume 7.6 FL (6.5-10.1) Neutrophils (%) (Auto) % (45.0-75.0) Lymphocytes (%) (Auto) % (20.0-45.0) Monocytes (%) (Auto) % (1.0-10.0) Eosinophils (%) (Auto) % (0.0-3.0) Basophils (%) (Auto) % (0.0-2.0) Differential Total Cells Counted 100 Neutrophils % (Manual) 97 % (45-75) H Lymphocytes % (Manual) 1 % (20-45) L Monocytes % (Manual) 2 % (1-10) Eosinophils % (Manual) 0 % (0-3) Basophils % (Manual) 0 % (0-2) Band Neutrophils 0 % (0-8) Platelet Estimate Decreased L Platelet Morphology Normal Polychromasia Occasional Anisocytosis 2+ Sodium Level 137 MMOL/L (136-145) Potassium Level 4.1 MMOL/L (3.5-5.1) Chloride Level 111 MMOL/L (98-107) H Carbon Dioxide Level 19 MMOL/L (21-32) L Anion Gap 7 mmol/L (5-15) Blood Urea Nitrogen 28 mg/dL (7-18) H Creatinine 0.7 MG/DL (0.55-1.30) Estimat Glomerular Filtration Rate > 60 mL/min (>60) Glucose Level 129 MG/DL (74-106) H Calcium Level 7.1 MG/DL (8.5-10.1) L Vancomycin Level Trough 20.3 ug/mL (5.0-12.0) H Current Medications Medications (Trade) Dose Ordered Sig/Naseem Route PRN Reason Start Time Stop Time Status Last Admin Dose Admin Ceftriaxone Sodium 1 gm/ Sodium Chloride 55 ml @ 110 mls/hr DAILY IVPB 07/05/19 09:00 07/09/19 08:59 07/05/19 10:45 Chlorhexidine Gluconate (Mer-Hex 2%) 1 applic DAILY@2000 TOPIC 07/04/19 20:00 08/01/19 19:59 07/04/19 21:27 Dextrose (Dextrose 50%) 25 ml Q30M PRN IV Hypoglycemia 07/04/19 16:00 07/28/19 04:59 Dextrose (Dextrose 50%) 50 ml Q30M PRN IV Hypoglycemia 07/04/19 16:00 07/28/19 04:59 Famotidine (Pepcid I.v.) 20 mg Q12HR IVP 07/04/19 21:00 08/01/19 20:59 07/05/19 09:33 Insulin Aspart (NovoLOG) BEFORE MEALS AND HS SUBQ 07/04/19 16:30 07/28/19 06:29 07/05/19 12:52 Metronidazole 100 ml @ 100 mls/hr Q8HR IVPB 07/04/19 22:00 07/08/19 13:59 07/05/19 06:24 Morphine Sulfate (Morphine Sulfate) 2 mg Q4H PRN IVP For Pain 07/04/19 15:43 07/11/19 15:42 Ondansetron HCl (Zofran) 4 mg Q6H PRN IVP Nausea & Vomiting 07/04/19 15:43 08/03/19 15:42 Sodium Chloride 1,000 ml @ 50 mls/hr Q20H IV 07/04/19 15:42 08/03/19 15:41 07/04/19 19:00 Vancomycin HCl (Firvanq) 125 mg Q6HR ORAL 07/04/19 18:00 07/11/19 17:59 07/05/19 12:53 Vancomycin HCl (Vanco rx to dose) 1 ea DAILY PRN MISC Per rx protocol 07/05/19 09:00 08/01/19 12:29 Vancomycin HCl 750 mg/Sodium Chloride 275 ml @ 183.333 mls/hr Q24H IVPB 07/05/19 14:00 07/08/19 13:59 07/05/19 13:28 Jay Hurtado MD Jul 05, 2019 14:08
--- NOTE | 2019-07-05 14:25 | General Progress Note ---
Assessment/Plan Status: progressing Assessment/Plan: Assessment/Plan Status: stable Assessment/Plan: 69-year-old female with past medical history of liver cirrhosis without known etiology presents for hematemesis #Hypovolemic shock secondary to hematemesis- resolved off pressors -ivf's -s/p PRBC, platelet transfusion -GI consult, appreciate recs: EGD 06/29/2019, esophageal varices x7 banding. Blood in abdomen. A limited however no active bleeding noted -Continue to monitor Hb. PRBC if < 7 or if acute bleed with Hb < 8 -Surgery consult, appreciate recs -Cardiology consult, appreciate recs -Echo: ef wnl #Intubation for airway protection and now with encephalopathy, extubated 07/03 -Pulmonology consult, appreciate recs #Worsening leukocytosis, continue to monitor POSITIVE C. difficile. Started on flagyl 07/01 and ID consultation appreciated. Antibiotics adjusted as needed. Now on PO Vancomycin #Urinary retention -Straight cath with 500 cc -Continue Rouse -Monitor ins and outs -UA negative #Liver cirrhosis with esophageal varices -Status post EGD as above -Ascites present, continue Rocephin, Flagyl -Protonix 40 mg IV twice daily. Famotidine added by GI -Octreotide drip, for 72 hours -Monitor CBC and BMP -Patient denies alcohol use, family states reason for liver cirrhosis is unknown. Differentials include Saunders versus autoimmune causes -Autoimmune work-up, can be deferred -Hepatitis panel pending -Right upper quadrant ultrasound: Reviewed -Continue lactulose -CEA normal #Hepatic encephalopathy -Continue lactulose as per above #Elevated troponin, likely secondary to demand ischemia -Cardiology consulted, appreciate recs -Echo: Within normal limits -Troponins downtrended. #Lactic acidosis, improving -Secondary to #1 # Physical deconditioning - PT evaluation # Disposition - Pending progress with PT The time of my note may not reflect the time of my patient encounter. 45 minutes of critical time spent. This includes interpretation of charting, vitals, labs, imaging, exam. Subjective Allergies: Coded Allergies: No Known Allergies (Unverified , 06/27/19) Subjective Feels better today. Objective Last 24 Hour Vital Signs Date Time Temp Pulse Resp B/P (MAP) Pulse Ox O2 Delivery O2 Flow Rate FiO2 07/05/19 08:00 99 07/05/19 08:00 97.4 99 18 116/65 (82) 94 07/05/19 08:00 97.4 99 18 116/65 (82) 94 07/05/19 04:00 97 07/05/19 04:00 98.1 97 19 118/67 (84) 96 07/05/19 00:00 92 07/05/19 00:00 98.2 92 19 118/64 (82) 98 07/04/19 21:00 Room Air 07/04/19 20:00 95 07/04/19 20:00 95 Room Air 21 07/04/19 20:00 97.4 95 19 115/64 (81) 95 07/04/19 16:00 Room Air 07/04/19 16:00 96 07/04/19 15:00 95 21 115/48 (70) 97 Intake and Output 07/04/19 07/05/19 19:00 07:00 Intake Total 1355 ml 820 ml Output Total 260 ml 750 ml Balance 1095 ml 70 ml Intake Oral 650 ml 120 ml IV Total 705 ml 700 ml Output Urine Total 260 ml 750 ml # Bowel Movements 3 Laboratory Tests 07/05/19 05:00: White Blood Count 11.5H, Red Blood Count 2.96L, Hemoglobin 9.1L, Hematocrit 27.5L, Mean Corpuscular Volume 93, Mean Corpuscular Hemoglobin 30.9, Mean Corpuscular Hemoglobin Concent 33.3, Red Cell Distribution Width 16.5H, Platelet Count 68L, Mean Platelet Volume 7.6, Neutrophils (%) (Auto) , Lymphocytes (%) (Auto) , Monocytes (%) (Auto) , Eosinophils (%) (Auto) , Basophils (%) (Auto) , Differential Total Cells Counted 100, Neutrophils % ( Manual) 97H, Lymphocytes % (Manual) 1L, Monocytes % (Manual) 2, Eosinophils % ( Manual) 0, Basophils % (Manual) 0, Band Neutrophils 0, Platelet Estimate DecreasedL, Platelet Morphology Normal, Polychromasia Occasional, Anisocytosis 2 +, Sodium Level 137, Potassium Level 4.1, Chloride Level 111H, Carbon Dioxide Level 19L, Anion Gap 7, Blood Urea Nitrogen 28H, Creatinine 0.7, Estimat Glomerular Filtration Rate > 60, Glucose Level 129H, Calcium Level 7.1L 07/05/19 13:10: Vancomycin Level Trough 20.3H Height (Feet): 5 Height (Inches): 2.00 Weight (Pounds): 145 General Appearance: WD/WN EENT: scleral icterus Neck: non-tender Cardiovascular: normal rate, regular rhythm Respiratory/Chest: lungs clear Abdomen: non tender 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
--- NOTE | 2019-07-05 16:14 | NUR ---
*--* INSURANCE *--* UPDATED CLINICALS AND REVIEWS HAVE BEEN FAXED TO: ERICKA/CHAZ FULLY DELEGATED TO [facility] F/S FAXED TO SHANICE NCM: AKUA P- [phone] X [phone] F- [phone]...........REVIEW/ CLINICAL
--- NOTE | 2019-07-05 18:35 | NUR ---
NURSE NOTES: Note for pharmacy. Pt was not given Acetaminophe 650mg it will go over the allowed dose/ day for pt. [facility] 15min of pulling meds. and after consulting with Pharmacy
--- NOTE | 2019-07-05 19:40 | NUR ---
NURSE NOTES: Received report from ROMAIN Mcleod. Patient in bed awake showing no signs of acute distress. AOx3. Respiration even and non labored on room air. No sob noted. PICC noted on right ua, 2 lumen patent and intact on 0.45%NS@50cc/hr. Rouse cath noted, patent, intact and draining. Pt. Bilateral soft wrist restraints off, (family at bedside) will monitor if restraints needed. SCD on. Side rails up x2. HOB up 45deg. Bed in lowest position, wheels locked and alarm on. Call button within reach. All needs attended and met. Will continue plan of care.
[2019-07-05 20:00] VITALS: BP 132/76
--- NOTE | 2019-07-05 20:07 | NUR ---
HAND-OFF: Report given to Robbie HOYOS. pt is in stable condition family at bedside.
[2019-07-05] MEDS: Dyna-Hex 2% Top Sol 2oz TOPIC SCH (21:33)
[2019-07-06] VITALS: BP 132/47
[2019-07-06 04:00] VITALS: BP 118/75
[2019-07-06] MEDS: Vancomycin oral 125mg/2.5ml ORAL SCH ×3 (05:33→16:57)
[2019-07-06] MEDS: NovoLOG Insulin Flexpen SUBQ SCH ×4 (05:38→20:47)
[2019-07-06 06:32] LABS: HEMATOCRIT 26.6 % (37.0-47.0); HEMOGLOBIN 8.8 G/DL (12.0-16.0); MEAN CORPUSCULAR VOLUME 94 FL (80-99); PLATELET COUNT 52 K/UL (150-450); RED BLOOD COUNT 2.82 M/UL (4.20-5.40); RED CELL DISTRIBUTION WIDTH 16.5 % (11.6-14.8); WHITE BLOOD COUNT 10.7 K/UL (4.8-10.8)
[2019-07-06 06:55] LABS: ALANINE AMINOTRANSFERASE 161 U/L (12-78); ALBUMIN 1.4 G/DL (3.4-5.0); ALBUMIN/GLOBULIN RATIO 0.5 (1.0-2.7); ALKALINE PHOSPHATASE 137 U/L (46-116); ANION GAP 5 mmol/L (5-15); ASPARTATE AMINO TRANSFERASE 46 U/L (15-37); BILIRUBIN,TOTAL 4.7 MG/DL (0.2-1.0); BLOOD UREA NITROGEN 26 mg/dL (7-18); CALCIUM 7.4 MG/DL (8.5-10.1); CARBON DIOXIDE 21 MMOL/L (21-32); CHLORIDE 112 MMOL/L (98-107); CREATININE 0.6 MG/DL (0.55-1.30); PHOSPHORUS 1.9 MG/DL (2.5-4.9); SODIUM 138 MMOL/L (136-145)
[2019-07-06 06:58] LABS: BILIRUBIN,DIRECT 2.9 MG/DL (0.0-0.3)
--- NOTE | 2019-07-06 07:29 | NUR ---
HAND-OFF: Report given to ROMAIN Newby.
--- NOTE | 2019-07-06 07:39 | NUR ---
NURSE NOTES: Report received from Zafar Clements. Patient awake in bed, resting comfortably. Denies pain or discomfort. safety precautons in place. CAll light within patient reach. Will anticipate patients needs. Will follow.
[2019-07-06 08:00] VITALS: BP 138/51
--- NOTE | 2019-07-06 08:44 | Pulmonology Progress Note ---
Assessment/Plan Assessment/Plan IMPRESSION: 1. Respiratory failure. Resolved. Extubated 07/03/19 2. Upper GI bleed, likely gastric varices. S/p EGD 3. Diabetes mellitus. 4. Anemia. Hgb stable 5. Thrombocytopenia; 6. Likely hepatic encephalopathy; continue lactulose; has C diff + DISCUSSION: Low flow O2 Continue lactulose Abx for C diff James Zeng M.D. Subjective Interval Events: None new Constitutional: Reports: no symptoms HEENT: Repors: no symptoms Respiratory: Reports: no symptoms Cardiovascular: Reports: no symptoms Gastrointestinal/Abdominal: Reports: no symptoms Allergies: Coded Allergies: No Known Allergies (Unverified , 06/27/19) Objective Last 24 Hour Vital Signs Date Time Temp Pulse Resp B/P (MAP) Pulse Ox O2 Delivery O2 Flow Rate FiO2 07/06/19 08:00 98.6 68 20 138/51 (80) 100 07/06/19 04:00 90 07/06/19 04:00 97.5 92 18 118/75 (89) 98 07/06/19 03:38 93 Nasal Cannula 2.0 28 07/06/19 00:00 91 07/06/19 00:00 98.2 91 19 132/47 (75) 95 07/05/19 21:00 Room Air 07/05/19 20:00 98.5 93 20 132/76 (94) 93 07/05/19 20:00 90 07/05/19 16:00 07/05/19 16:00 93 07/05/19 12:00 97.3 90 20 112/58 (76) 96 07/05/19 12:00 91 07/05/19 09:00 Room Air Intake and Output 07/05/19 07/06/19 18:59 06:59 Intake Total 750 ml Output Total 300 ml 250 ml Balance 450 ml -250 ml Intake Oral 600 ml IV Total 150 ml Output Urine Total 300 ml 250 ml # Bowel Movements 2 4 General Appearance: no acute distress HEENT: normocephalic Respiratory/Chest: chest wall non-tender Cardiovascular: normal peripheral pulses Abdomen: normal bowel sounds Microbiology Date/Time Source Procedure Growth Status 07/03/19 14:15 Abdominal Fluid Gram Stain - Final Resulted 07/03/19 14:15 Abdominal Fluid Body Fluid Culture - Preliminary NO GROWTH AFTER 72 HOURS Resulted Laboratory Tests 07/05/19 13:10: Vancomycin Level Trough 20.3H 07/06/19 05:29: White Blood Count 10.7, Red Blood Count 2.82L, Hemoglobin 8.8L, Hematocrit 26.6L , Mean Corpuscular Volume 94, Mean Corpuscular Hemoglobin 31.1H, Mean Corpuscular Hemoglobin Concent 33.0, Red Cell Distribution Width 16.5H, Platelet Count 52L, Mean Platelet Volume 8.5, Neutrophils (%) (Auto) , Lymphocytes (%) (Auto) , Monocytes (%) (Auto) , Eosinophils (%) (Auto) , Basophils (%) (Auto) , Neutrophils % (Manual) [Pending], Lymphocytes % (Manual) [Pending], Platelet Estimate [Pending], Platelet Morphology [Pending], Sodium Level 138, Potassium Level 4.0, Chloride Level 112H, Carbon Dioxide Level 21, Anion Gap 5, Blood Urea Nitrogen 26H, Creatinine 0.6, Estimat Glomerular Filtration Rate > 60, Glucose Level 121H, Calcium Level 7.4L, Phosphorus Level 1.9L, Magnesium Level 1.8, Total Bilirubin 4.7H, Direct Bilirubin 2.9H, Aspartate Amino Transf (AST/SGOT) 46H, Alanine Aminotransferase (ALT/SGPT) 161H , Alkaline Phosphatase 137H, Total Protein 4.5L, Albumin 1.4L, Globulin 3.1, Albumin/Globulin Ratio 0.5L Current Medications Medications (Trade) Dose Ordered Sig/Naseem Route PRN Reason Start Time Stop Time Status Last Admin Dose Admin Ceftriaxone Sodium 1 gm/ Sodium Chloride 55 ml @ 110 mls/hr DAILY IVPB 07/05/19 09:00 07/09/19 08:59 07/05/19 10:45 Chlorhexidine Gluconate (Mer-Hex 2%) 1 applic DAILY@2000 TOPIC 07/04/19 20:00 08/01/19 19:59 07/05/19 21:33 Dextrose (Dextrose 50%) 25 ml Q30M PRN IV Hypoglycemia 07/04/19 16:00 07/28/19 04:59 Dextrose (Dextrose 50%) 50 ml Q30M PRN IV Hypoglycemia 07/04/19 16:00 07/28/19 04:59 Famotidine (Pepcid I.v.) 20 mg Q12HR IVP 07/04/19 21:00 08/01/19 20:59 07/05/19 21:33 Insulin Aspart (NovoLOG) BEFORE MEALS AND HS SUBQ 07/04/19 16:30 07/28/19 06:29 07/05/19 21:35 Metronidazole 100 ml @ 100 mls/hr Q8HR IVPB 07/04/19 22:00 07/08/19 13:59 07/06/19 05:33 Morphine Sulfate (Morphine Sulfate) 2 mg Q4H PRN IVP For Pain 07/04/19 15:43 07/11/19 15:42 Ondansetron HCl (Zofran) 4 mg Q6H PRN IVP Nausea & Vomiting 07/04/19 15:43 08/03/19 15:42 Sodium Chloride 1,000 ml @ 50 mls/hr Q20H IV 07/04/19 15:42 08/03/19 15:41 07/06/19 07:42 Vancomycin HCl (Firvanq) 125 mg Q6HR ORAL 07/04/19 18:00 07/11/19 17:59 07/06/19 05:33 Vancomycin HCl (Vanco rx to dose) 1 ea DAILY PRN MISC Per rx protocol 07/05/19 09:00 08/01/19 12:29 Vancomycin HCl 750 mg/Sodium Chloride 275 ml @ 183.333 mls/hr Q24H IVPB 07/05/19 14:00 07/08/19 13:59 07/05/19 13:28 James Zeng MD Jul 06, 2019 08:44
[2019-07-06] MEDS: cefTRIAXone 1 GM in NS 55 ML IVPB SCH (09:12)
--- NOTE | 2019-07-06 09:56 | NUR ---
NURSE NOTES: Dr. Chaudhary made aware of Platelet level of 52. No active bleeding. VSS. has NNO. will continue to monitor.
--- NOTE | 2019-07-06 11:16 | Diagnostic Imaging Report ---
APPROVED REPORT CPT Code: 82664 Present Symptoms Shortness of breath BILATERAL: Imaging reveals a patent deep venous system bilaterally. There is no evidence of thrombus within the femoral, popliteal or tibial segments. The greater saphenous veins are also within normal limits. Doppler indicates normal spontaneous flow within these segments.
--- NOTE | 2019-07-06 11:46 | GI Progress Note ---
Assessment/Plan Problems: (1) Acute GI bleeding ICD Codes: K92.2 - Gastrointestinal hemorrhage, unspecified SNOMED: 86227084 (2) GI bleed ICD Codes: K92.2 - Gastrointestinal hemorrhage, unspecified SNOMED: 40935228 (3) Varices, esophageal ICD Codes: I85.00 - Esophageal varices without bleeding SNOMED: 66902529 (4) Cirrhosis ICD Codes: K74.60 - Unspecified cirrhosis of liver SNOMED: 72563272 Status: stable Status Narrative Discussed with Dr. Garcia. Assessment/Plan Assessment - Cirrhosis - UGIB due to esophageal varicies s/p banding - C Diff, on IV flagyl (no oral access for PO vanco at this time) - Resp failure - anemia - lactic acidosis - leukocytosis - guarded - s/p paracentesis Recommendations - serial CBC - transfuse PRN to keep Hg > 7 - on diet - extubated yesterday - H2B - dc octreotide - IV abx - follow labs The patient was seen and examined at bedside and all new and available data was reviewed in the patients chart. I agree with the above findings, impression and plan. (Patient seen earlier today. Signature stamp does not reflect patient encounter time.). - Mina Garcia MD Subjective Subjective limited Objective Last 24 Hour Vital Signs Date Time Temp Pulse Resp B/P (MAP) Pulse Ox O2 Delivery O2 Flow Rate FiO2 07/06/19 09:00 Room Air 07/06/19 08:00 92 07/06/19 08:00 98.6 68 20 138/51 (80) 100 07/06/19 04:00 90 07/06/19 04:00 97.5 92 18 118/75 (89) 98 07/06/19 03:38 93 Nasal Cannula 2.0 28 07/06/19 00:00 91 07/06/19 00:00 98.2 91 19 132/47 (75) 95 07/05/19 21:00 Room Air 07/05/19 20:00 98.5 93 20 132/76 (94) 93 07/05/19 20:00 90 07/05/19 16:00 07/05/19 16:00 93 07/05/19 12:00 97.3 90 20 112/58 (76) 96 07/05/19 12:00 91 Intake and Output 07/05/19 07/06/19 19:00 07:00 Intake Total 700 ml 120 ml Output Total 300 ml 250 ml Balance 400 ml -130 ml Intake Oral 600 ml 120 ml IV Total 100 ml Output Urine Total 300 ml 250 ml # Bowel Movements 2 4 Laboratory Tests Test 07/05/19 13:10 07/06/19 05:29 Vancomycin Level Trough 20.3 ug/mL (5.0-12.0) H White Blood Count 10.7 K/UL (4.8-10.8) Red Blood Count 2.82 M/UL (4.20-5.40) L Hemoglobin 8.8 G/DL (12.0-16.0) L Hematocrit 26.6 % (37.0-47.0) L Mean Corpuscular Volume 94 FL (80-99) Mean Corpuscular Hemoglobin 31.1 PG (27.0-31.0) H Mean Corpuscular Hemoglobin Concent 33.0 G/DL (32.0-36.0) Red Cell Distribution Width 16.5 % (11.6-14.8) H Platelet Count 52 K/UL (150-450) L Mean Platelet Volume 8.5 FL (6.5-10.1) Neutrophils (%) (Auto) % (45.0-75.0) Lymphocytes (%) (Auto) % (20.0-45.0) Monocytes (%) (Auto) % (1.0-10.0) Eosinophils (%) (Auto) % (0.0-3.0) Basophils (%) (Auto) % (0.0-2.0) Differential Total Cells Counted 100 Neutrophils % (Manual) 93 % (45-75) H Lymphocytes % (Manual) 2 % (20-45) L Monocytes % (Manual) 3 % (1-10) Eosinophils % (Manual) 2 % (0-3) Basophils % (Manual) 0 % (0-2) Band Neutrophils 0 % (0-8) Platelet Estimate Decreased L Platelet Morphology Normal Polychromasia 1+ Hypochromasia 1+ Anisocytosis 1+ Sodium Level 138 MMOL/L (136-145) Potassium Level 4.0 MMOL/L (3.5-5.1) Chloride Level 112 MMOL/L (98-107) H Carbon Dioxide Level 21 MMOL/L (21-32) Anion Gap 5 mmol/L (5-15) Blood Urea Nitrogen 26 mg/dL (7-18) H Creatinine 0.6 MG/DL (0.55-1.30) Estimat Glomerular Filtration Rate > 60 mL/min (>60) Glucose Level 121 MG/DL (74-106) H Calcium Level 7.4 MG/DL (8.5-10.1) L Phosphorus Level 1.9 MG/DL (2.5-4.9) L Magnesium Level 1.8 MG/DL (1.8-2.4) Total Bilirubin 4.7 MG/DL (0.2-1.0) H Direct Bilirubin 2.9 MG/DL (0.0-0.3) H Aspartate Amino Transf (AST/SGOT) 46 U/L (15-37) H Alanine Aminotransferase (ALT/SGPT) 161 U/L (12-78) H Alkaline Phosphatase 137 U/L (46-116) H Total Protein 4.5 G/DL (6.4-8.2) L Albumin 1.4 G/DL (3.4-5.0) L Globulin 3.1 g/dL Albumin/Globulin Ratio 0.5 (1.0-2.7) L Height (Feet): 5 Height (Inches): 2.00 Weight (Pounds): 144 General Appearance: no apparent distress Cardiovascular: normal rate Respiratory/Chest: normal breath sounds, no respiratory distress Abdominal Exam: normal bowel sounds, non tender, soft Extremities: non-tender Luisana Walker SHOP DIRECTOR Jul 06, 2019 11:46
[2019-07-06 12:00] VITALS: BP 110/69
--- NOTE | 2019-07-06 13:16 | NUR ---
CAMP DIRECTORX RAY SERVICE ENGINEER SI: ACUTE GI BLEED T. 97.1 HR 88 RR 20 B/P 138/51 BUN 26 AST 46 ALK 161 H/H 8.8/26.6 IS: VANCO IV CEFTRIAXONE IV FLAGYL IV IVF NS@ 50ML/HR TELE STATUS
--- NOTE | 2019-07-06 13:32 | NUR ---
RD ASSESSMENT & RECOMMENDATIONS SEE CARE ACTIVITY FOR COMPLETE ASSESSMENT DAILY ESTIMATED NEEDS: Needs based on Cirrhosis, pulmonary / 48kg 25-35 kcals/kg 0098-6895 total kcals 1-1.5 g protein/kg 48-72 g total protein 25-30 mL/kg 1766-9253 total fluid mLs NUTRITION DIAGNOSIS: * Swallowing difficulty R/T respiratory status as evidenced by orally intubated, unable to obtain GI access 2/2 esophageal varices- pt is now s/p extubation on oral diet w/ texture modifications. (UPDATED) * Altered nutrition related lab values R/T DM, cirrhosis, GIB, clinical condition as evidenced by elev POC glu (232 252 260-> now improved), elev T bili (4.7), elev LFTs, low hgb (8.8), elev LA. PO DIET RECOMMENDATIONS: WHEN SAFE FOR DIET POST EXTUBATION: LOW NA, CCHO LOW ADDITIONAL RECOMMENDATIONS: * Calibrated bedscale wt for accurate cbw Bedscale wt of 149lbs vs family's stated wt of ~106lbs * Monitor liver fxn- T bili trending up. * Good intake noted this morning * Monitor lytes, replete as needed .
--- NOTE | 2019-07-06 13:34 | Surgery Progress Note ---
Surgery Progress Note Subjective Additional Comments no acute events comfortable labs noted lft's worsening exam unchanged. Objective Last 24 Hour Vital Signs Date Time Temp Pulse Resp B/P (MAP) Pulse Ox O2 Delivery O2 Flow Rate FiO2 07/06/19 12:00 97.1 88 20 110/69 (83) 93 07/06/19 09:00 Room Air 07/06/19 08:00 92 07/06/19 08:00 98.6 68 20 138/51 (80) 100 07/06/19 04:00 90 07/06/19 04:00 97.5 92 18 118/75 (89) 98 07/06/19 03:38 93 Nasal Cannula 2.0 28 07/06/19 00:00 91 07/06/19 00:00 98.2 91 19 132/47 (75) 95 07/05/19 21:00 Room Air 07/05/19 20:00 98.5 93 20 132/76 (94) 93 07/05/19 20:00 90 07/05/19 16:00 07/05/19 16:00 93 I&O Intake and Output 07/05/19 07/06/19 19:00 07:00 Intake Total 700 ml 120 ml Output Total 300 ml 250 ml Balance 400 ml -130 ml Intake Oral 600 ml 120 ml IV Total 100 ml Output Urine Total 300 ml 250 ml # Bowel Movements 2 4 Cardiovascular: RSR Respiratory: clear Abdomen: soft, distended, non-tender, present bowel sounds Extremities: no tenderness, no cyanosis Laboratory Tests Test 07/06/19 05:29 White Blood Count 10.7 K/UL (4.8-10.8) Red Blood Count 2.82 M/UL (4.20-5.40) L Hemoglobin 8.8 G/DL (12.0-16.0) L Hematocrit 26.6 % (37.0-47.0) L Mean Corpuscular Volume 94 FL (80-99) Mean Corpuscular Hemoglobin 31.1 PG (27.0-31.0) H Mean Corpuscular Hemoglobin Concent 33.0 G/DL (32.0-36.0) Red Cell Distribution Width 16.5 % (11.6-14.8) H Platelet Count 52 K/UL (150-450) L Mean Platelet Volume 8.5 FL (6.5-10.1) Neutrophils (%) (Auto) % (45.0-75.0) Lymphocytes (%) (Auto) % (20.0-45.0) Monocytes (%) (Auto) % (1.0-10.0) Eosinophils (%) (Auto) % (0.0-3.0) Basophils (%) (Auto) % (0.0-2.0) Differential Total Cells Counted 100 Neutrophils % (Manual) 93 % (45-75) H Lymphocytes % (Manual) 2 % (20-45) L Monocytes % (Manual) 3 % (1-10) Eosinophils % (Manual) 2 % (0-3) Basophils % (Manual) 0 % (0-2) Band Neutrophils 0 % (0-8) Platelet Estimate Decreased L Platelet Morphology Normal Polychromasia 1+ Hypochromasia 1+ Anisocytosis 1+ Sodium Level 138 MMOL/L (136-145) Potassium Level 4.0 MMOL/L (3.5-5.1) Chloride Level 112 MMOL/L (98-107) H Carbon Dioxide Level 21 MMOL/L (21-32) Anion Gap 5 mmol/L (5-15) Blood Urea Nitrogen 26 mg/dL (7-18) H Creatinine 0.6 MG/DL (0.55-1.30) Estimat Glomerular Filtration Rate > 60 mL/min (>60) Glucose Level 121 MG/DL (74-106) H Calcium Level 7.4 MG/DL (8.5-10.1) L Phosphorus Level 1.9 MG/DL (2.5-4.9) L Magnesium Level 1.8 MG/DL (1.8-2.4) Total Bilirubin 4.7 MG/DL (0.2-1.0) H Direct Bilirubin 2.9 MG/DL (0.0-0.3) H Aspartate Amino Transf (AST/SGOT) 46 U/L (15-37) H Alanine Aminotransferase (ALT/SGPT) 161 U/L (12-78) H Alkaline Phosphatase 137 U/L (46-116) H Total Protein 4.5 G/DL (6.4-8.2) L Albumin 1.4 G/DL (3.4-5.0) L Globulin 3.1 g/dL Albumin/Globulin Ratio 0.5 (1.0-2.7) L Plan Problems: (1) Cirrhosis (2) Varices, esophageal (3) GI bleed Assessment & Plan: 69F with acute GI bleed. etiology likely prior varices anemia on admission and transfused extubated and improving downgraded comfortable EGD noted okay for diet iv fluids PPI prognosis still guarded d/c planning will follow with recs thank you (4) Acute GI bleeding Zaid Wong Jul 06, 2019 13:34
[2019-07-06] MEDS: Vancomycin 750 MG in NS 275 ML IVPB SCH (14:54)
--- NOTE | 2019-07-06 15:08 | NUR ---
*--* INSURANCE *--* UPDATED CLINICALS AND REVIEWS HAVE BEEN FAXED TO: ERICKA/CHAZ FULLY DELEGATED TO SHANICE F/S FAXED TO SHANICE NCM: AKUA P- [phone] F- [phone]...........REVIEW/ CLINICAL
--- NOTE | 2019-07-06 15:35 | General Progress Note ---
Assessment/Plan Status: stable Assessment/Plan: Assessment/Plan Status: stable Assessment/Plan: 69-year-old female with past medical history of liver cirrhosis without known etiology presents for hematemesis #Hypovolemic shock secondary to hematemesis- resolved off pressors -s/p PRBC, platelet transfusion on admission -GI consult, appreciate recs: EGD 06/29/2019, esophageal varices x7 banding. Blood in abdomen. A limited however no active bleeding noted -Continue to monitor Hb. PRBC if < 7 or if acute bleed with Hb < 8 -Surgery consult, appreciate recs -Cardiology consult, appreciate recs -Echo: ef wnl #Intubation for airway protection and encephalopathy, extubated 07/03 -Pulmonology consult, appreciate recs #Worsening leukocytosis, continue to monitor POSITIVE C. difficile. Started on flagyl 07/01 and ID consultation appreciated. Antibiotics adjusted as needed. Now on PO Vancomycin #Urinary retention -Straight cath with 500 cc -Continue Rouse for now due to poor mobility and she will need VOIDING TRIAL. -Monitor ins and outs -UA negative #Liver cirrhosis with esophageal varices -Status post EGD as above -Ascites present, continue Rocephin, Flagyl -Protonix 40 mg IV twice daily. Famotidine added by GI -Octreotide drip, for 72 hours -Monitor CBC and BMP -Patient denies alcohol use, family states reason for liver cirrhosis is unknown. Differentials include Saunders versus autoimmune causes -Autoimmune work-up, can be deferred -Hepatitis panel pending -Right upper quadrant ultrasound: Reviewed -Continue lactulose -CEA normal #Hepatic encephalopathy -Continue lactulose as per above #Elevated troponin, likely secondary to demand ischemia -Cardiology consulted, appreciate recs -Echo: Within normal limits -Troponins downtrended. #Lactic acidosis, improving -Secondary to #1 # Physical deconditioning - PT evaluation # Disposition - PT evaluation recommends SNF and skilled therapy. - CM consult placed today. The time of my note may not reflect the time of my patient encounter. 45 minutes of critical time spent. This includes interpretation of charting, vitals, labs, imaging, exam. Subjective ROS Limited/Unobtainable: No Allergies: Coded Allergies: No Known Allergies (Unverified , 06/27/19) Subjective Feels better today. Poor appetite and limited mobility noted with PT evaluation Objective Last 24 Hour Vital Signs Date Time Temp Pulse Resp B/P (MAP) Pulse Ox O2 Delivery O2 Flow Rate FiO2 07/06/19 12:00 93 07/06/19 12:00 97.1 88 20 110/69 (83) 93 07/06/19 09:00 Room Air 07/06/19 08:00 92 07/06/19 08:00 98.6 68 20 138/51 (80) 100 07/06/19 04:00 90 07/06/19 04:00 97.5 92 18 118/75 (89) 98 07/06/19 03:38 93 Nasal Cannula 2.0 28 07/06/19 00:00 91 07/06/19 00:00 98.2 91 19 132/47 (75) 95 07/05/19 21:00 Room Air 07/05/19 20:00 98.5 93 20 132/76 (94) 93 07/05/19 20:00 90 07/05/19 16:00 07/05/19 16:00 93 Intake and Output 07/05/19 07/06/19 19:00 07:00 Intake Total 700 ml 120 ml Output Total 300 ml 250 ml Balance 400 ml -130 ml Intake Oral 600 ml 120 ml IV Total 100 ml Output Urine Total 300 ml 250 ml # Bowel Movements 2 4 Laboratory Tests 07/06/19 05:29: White Blood Count 10.7, Red Blood Count 2.82L, Hemoglobin 8.8L, Hematocrit 26.6L , Mean Corpuscular Volume 94, Mean Corpuscular Hemoglobin 31.1H, Mean Corpuscular Hemoglobin Concent 33.0, Red Cell Distribution Width 16.5H, Platelet Count 52L, Mean Platelet Volume 8.5, Neutrophils (%) (Auto) , Lymphocytes (%) (Auto) , Monocytes (%) (Auto) , Eosinophils (%) (Auto) , Basophils (%) (Auto) , Differential Total Cells Counted 100, Neutrophils % ( Manual) 93H, Lymphocytes % (Manual) 2L, Monocytes % (Manual) 3, Eosinophils % ( Manual) 2, Basophils % (Manual) 0, Band Neutrophils 0, Platelet Estimate DecreasedL, Platelet Morphology Normal, Polychromasia 1+, Hypochromasia 1+, Anisocytosis 1+, Sodium Level 138, Potassium Level 4.0, Chloride Level 112H, Carbon Dioxide Level 21, Anion Gap 5, Blood Urea Nitrogen 26H, Creatinine 0.6, Estimat Glomerular Filtration Rate > 60, Glucose Level 121H, Calcium Level 7.4L , Phosphorus Level 1.9L, Magnesium Level 1.8, Total Bilirubin 4.7H, Direct Bilirubin 2.9H, Aspartate Amino Transf (AST/SGOT) 46H, Alanine Aminotransferase (ALT/SGPT) 161H, Alkaline Phosphatase 137H, Total Protein 4.5L, Albumin 1.4L, Globulin 3.1, Albumin/Globulin Ratio 0.5L Height (Feet): 5 Height (Inches): 2.00 Weight (Pounds): 144 General Appearance: moderate distress EENT: PERRL/EOMI Neck: non-tender, normal alignment Cardiovascular: normal rate, regular rhythm Respiratory/Chest: lungs clear, normal breath sounds Abdomen: non tender, soft Neurologic: folder seamer II-XII grossly normal Skin: normal pigmentation Yue Hunter MD Jul 06, 2019 15:35
--- NOTE | 2019-07-06 16:01 | Hematology/Onc Progress Note ---
Assessment/Plan Assessment/Plan Assessment and Recs: # Anemia of GI bleed -- patient presents with occult+ bleeding, anemia panel reviewed iron stores are moderate but given 4 units prbc, can be falsely moderate, recheck in several days, anemia is due to variceal bleed --> as per GI eval, may need endoscopy --> has been started on ppi --> cea has been ordered - normal --> Hgb goal >7. Transfuse prn. --> (s/p 4 units prbc) --> Iron x 1 dose has been orderd --> Medications have been reviewed --> continue ppi and octreotide prn per gi --> hgb trend 8.8-->8.8-->8.2-->7.2->9.6-->9.1-->8.8 # Thrombocytopenia - potential causes multifactorial, evaluate liver and viral etiologies to begin, also could be related to underlying medications patient has received. In this case is due to etoh abuse, esoph varices and cirrhosis is noted, also potential c.diff infection --> Hep panel pending and HIV negative --> US abd does show cirrhosis --> Peripheral smear ordered to evaluate for blasts /schistocytes does not show any --> abx and other meds have been reviewed --> ok for ppx if plt >50k w/ either heparin or lovenox --> Transfuse if Plt < 20k and fever, or if Plt < 10k without fever --> plt count 90k-->46k-->63k-->68k-->52k --> EGD per gi --> s/p plt transfusion on 06/29 # Varices, esophageal --> potential rupture as per gi recs # Cirrhosis --> with hepatic enceph --> gi recs prn # Resp failure --> was intubated --> now extubated on ra # Hypokalemia with dec K --> given IV k as per pcp The timing of this note does not necessarily reflect the time of the patient was seen. GREATLY APPRECIATE CONSULTATION. Subjective Allergies: Coded Allergies: No Known Allergies (Unverified , 06/27/19) Subjective 06/29: icu, s/p egd and plt tx, levo gtt 07/01: remains on vent, ivelisse Montero rn, with c. 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 with laboratory apparatus glass grinder, no f/c, no night sweats 07/06: no f/c, vs stable, denies pain, on abx, labs noted Objective Objective Current Medications Medications (Trade) Dose Ordered Sig/Naseem Route PRN Reason Start Time Stop Time Status Last Admin Dose Admin Ceftriaxone Sodium 1 gm/ Sodium Chloride 55 ml @ 110 mls/hr DAILY IVPB 07/05/19 09:00 07/09/19 08:59 07/06/19 09:12 Chlorhexidine Gluconate (Mer-Hex 2%) 1 applic DAILY@2000 TOPIC 07/04/19 20:00 08/01/19 19:59 07/05/19 21:33 Dextrose (Dextrose 50%) 25 ml Q30M PRN IV Hypoglycemia 07/04/19 16:00 07/28/19 04:59 Dextrose (Dextrose 50%) 50 ml Q30M PRN IV Hypoglycemia 07/04/19 16:00 07/28/19 04:59 Famotidine (Pepcid I.v.) 20 mg Q12HR IVP 07/04/19 21:00 08/01/19 20:59 07/06/19 09:12 Insulin Aspart (NovoLOG) BEFORE MEALS AND HS SUBQ 07/04/19 16:30 07/28/19 06:29 07/06/19 11:39 Metronidazole 100 ml @ 100 mls/hr Q8HR IVPB 07/04/19 22:00 07/08/19 13:59 07/06/19 13:32 Morphine Sulfate (Morphine Sulfate) 2 mg Q4H PRN IVP For Pain 07/04/19 15:43 07/11/19 15:42 Ondansetron HCl (Zofran) 4 mg Q6H PRN IVP Nausea & Vomiting 07/04/19 15:43 08/03/19 15:42 Sodium Chloride 1,000 ml @ 50 mls/hr Q20H IV 07/04/19 15:42 08/03/19 15:41 07/06/19 07:42 Vancomycin HCl (Firvanq) 125 mg Q6HR ORAL 07/04/19 18:00 07/11/19 17:59 07/06/19 11:39 Vancomycin HCl (Vanco rx to dose) 1 ea DAILY PRN MISC Per rx protocol 07/05/19 09:00 08/01/19 12:29 Vancomycin HCl 750 mg/Sodium Chloride 275 ml @ 183.333 mls/hr Q24H IVPB 07/05/19 14:00 07/08/19 13:59 07/06/19 14:54 Last 24 Hour Vital Signs Date Time Temp Pulse Resp B/P (MAP) Pulse Ox O2 Delivery O2 Flow Rate FiO2 07/06/19 12:00 93 07/06/19 12:00 97.1 88 20 110/69 (83) 93 07/06/19 09:00 Room Air 07/06/19 08:00 92 07/06/19 08:00 98.6 68 20 138/51 (80) 100 07/06/19 04:00 90 07/06/19 04:00 97.5 92 18 118/75 (89) 98 07/06/19 03:38 93 Nasal Cannula 2.0 28 07/06/19 00:00 91 07/06/19 00:00 98.2 91 19 132/47 (75) 95 07/05/19 21:00 Room Air 07/05/19 20:00 98.5 93 20 132/76 (94) 93 07/05/19 20:00 90 07/05/19 16:00 07/05/19 16:00 93 07/05/19 12:00 97.3 90 20 112/58 (76) 96 07/05/19 12:00 91 07/05/19 09:00 Room Air 07/05/19 08:00 99 07/05/19 08:00 97.4 99 18 116/65 (82) 94 07/05/19 08:00 97.4 99 18 116/65 (82) 94 07/05/19 04:00 97 07/05/19 04:00 98.1 97 19 118/67 (84) 96 07/05/19 00:00 92 07/05/19 00:00 98.2 92 19 118/64 (82) 98 07/04/19 21:00 Room Air 07/04/19 20:00 95 07/04/19 20:00 95 Room Air 21 07/04/19 20:00 97.4 95 19 115/64 (81) 95 07/04/19 16:00 Room Air 07/04/19 16:00 96 Intake and Output 07/05/19 07/06/19 19:00 07:00 Intake Total 700 ml 120 ml Output Total 300 ml 250 ml Balance 400 ml -130 ml Intake Oral 600 ml 120 ml IV Total 100 ml Output Urine Total 300 ml 250 ml # Bowel Movements 2 4 Labs Test 07/04/19 04:30 07/05/19 05:00 07/05/19 13:10 07/06/19 05:29 White Blood Count 10.8 K/UL (4.8-10.8) 11.5 K/UL (4.8-10.8) 10.7 K/UL (4.8-10.8) Red Blood Count 3.13 M/UL (4.20-5.40) 2.96 M/UL (4.20-5.40) 2.82 M/UL (4.20-5.40) Hemoglobin 9.6 G/DL (12.0-16.0) 9.1 G/DL (12.0-16.0) 8.8 G/DL (12.0-16.0) Hematocrit 29.3 % (37.0-47.0) 27.5 % (37.0-47.0) 26.6 % (37.0-47.0) Mean Corpuscular Volume 94 FL (80-99) 93 FL (80-99) 94 FL (80-99) Mean Corpuscular Hemoglobin 30.8 PG (27.0-31.0) 30.9 PG (27.0-31.0) 31.1 PG (27.0-31.0) Mean Corpuscular Hemoglobin Concent 32.9 G/DL (32.0-36.0) 33.3 G/DL (32.0-36.0) 33.0 G/DL (32.0-36.0) Red Cell Distribution Width 16.6 % (11.6-14.8) 16.5 % (11.6-14.8) 16.5 % (11.6-14.8) Platelet Count 63 K/UL (150-450) 68 K/UL (150-450) 52 K/UL (150-450) Mean Platelet Volume 7.5 FL (6.5-10.1) 7.6 FL (6.5-10.1) 8.5 FL (6.5-10.1) Neutrophils (%) (Auto) % (45.0-75.0) % (45.0-75.0) % (45.0-75.0) Lymphocytes (%) (Auto) % (20.0-45.0) % (20.0-45.0) % (20.0-45.0) Monocytes (%) (Auto) % (1.0-10.0) % (1.0-10.0) % (1.0-10.0) Eosinophils (%) (Auto) % (0.0-3.0) % (0.0-3.0) % (0.0-3.0) Basophils (%) (Auto) % (0.0-2.0) % (0.0-2.0) % (0.0-2.0) Sodium Level 145 MMOL/L (136-145) 137 MMOL/L (136-145) 138 MMOL/L (136-145) Potassium Level 4.2 MMOL/L (3.5-5.1) 4.1 MMOL/L (3.5-5.1) 4.0 MMOL/L (3.5-5.1) Chloride Level 116 MMOL/L (98-107) 111 MMOL/L (98-107) 112 MMOL/L (98-107) Carbon Dioxide Level 19 MMOL/L (21-32) 19 MMOL/L (21-32) 21 MMOL/L (21-32) Anion Gap 10 mmol/L (5-15) 7 mmol/L (5-15) 5 mmol/L (5-15) Blood Urea Nitrogen 26 mg/dL (7-18) 28 mg/dL (7-18) 26 mg/dL (7-18) Creatinine 0.5 MG/DL (0.55-1.30) 0.7 MG/DL (0.55-1.30) 0.6 MG/DL (0.55-1.30) Estimat Glomerular Filtration Rate > 60 mL/min (>60) > 60 mL/min (>60) > 60 mL/min (>60) Glucose Level 112 MG/DL (74-106) 129 MG/DL (74-106) 121 MG/DL (74-106) Calcium Level 7.4 MG/DL (8.5-10.1) 7.1 MG/DL (8.5-10.1) 7.4 MG/DL (8.5-10.1) Differential Total Cells Counted 100 100 Neutrophils % (Manual) 97 % (45-75) 93 % (45-75) Lymphocytes % (Manual) 1 % (20-45) 2 % (20-45) Monocytes % (Manual) 2 % (1-10) 3 % (1-10) Eosinophils % (Manual) 0 % (0-3) 2 % (0-3) Basophils % (Manual) 0 % (0-2) 0 % (0-2) Band Neutrophils 0 % (0-8) 0 % (0-8) Platelet Estimate Decreased Decreased Platelet Morphology Normal Normal Polychromasia Occasional 1+ Anisocytosis 2+ 1+ Vancomycin Level Trough 20.3 ug/mL (5.0-12.0) Hypochromasia 1+ Phosphorus Level 1.9 MG/DL (2.5-4.9) Magnesium Level 1.8 MG/DL (1.8-2.4) Total Bilirubin 4.7 MG/DL (0.2-1.0) Direct Bilirubin 2.9 MG/DL (0.0-0.3) Aspartate Amino Transf (AST/SGOT) 46 U/L (15-37) Alanine Aminotransferase (ALT/SGPT) 161 U/L (12-78) Alkaline Phosphatase 137 U/L (46-116) Total Protein 4.5 G/DL (6.4-8.2) Albumin 1.4 G/DL (3.4-5.0) Globulin 3.1 g/dL Albumin/Globulin Ratio 0.5 (1.0-2.7) Height (Feet): 5 Height (Inches): 2.00 Weight (Pounds): 144 Objective Physical Exam: Vitals: reviewed General Appearance: NAD HEENT: normocephalic, atraumatic Respiratory/Chest: normal breath sounds bilaterally Cardiovascular/Chest: normal peripheral pulses, normal rate Abdomen: normal bowel sounds, soft, nontender Extremities: normal range of motion Anthony Chaudhary MD Jul 06, 2019 16:01
[2019-07-06 16:30] VITALS: BP 132/72
--- NOTE | 2019-07-06 19:00 | NUR ---
NURSE NOTES: Received patient from ROMAIN Newby, patient in stable condition, no distress, AOx2, VSS, O2@2L n/c, PICC line on R upper arm , double lumen, asymptomatic, patent, intact, F/C draining to gravity, denies pain at this time, bed low&locked, side rail upx3, call light within reach , will continue to monitor and reassess.
--- NOTE | 2019-07-06 19:32 | NUR ---
HAND-OFF: Report given to Calderon Colby Rn. Plan of care endorsed.
[2019-07-06 20:00] VITALS: BP 134/95
[2019-07-06] MEDS: Dyna-Hex 2% Top Sol 2oz TOPIC SCH (20:41)
[2019-07-07] VITALS: BP 128/71
[2019-07-07] MEDS: Vancomycin oral 125mg/2.5ml ORAL SCH ×5 (00:37→23:06)
[2019-07-07 04:00] VITALS: BP 111/65
[2019-07-07] MEDS: NovoLOG Insulin Flexpen SUBQ SCH ×4 (06:55→20:55)
[2019-07-07 07:41] LABS: HEMATOCRIT 25.9 % (37.0-47.0); HEMOGLOBIN 8.7 G/DL (12.0-16.0); MEAN CORPUSCULAR VOLUME 93 FL (80-99); PLATELET COUNT 48 K/UL (150-450); RED BLOOD COUNT 2.77 M/UL (4.20-5.40); RED CELL DISTRIBUTION WIDTH 16.9 % (11.6-14.8); WHITE BLOOD COUNT 13.1 K/UL (4.8-10.8)
--- NOTE | 2019-07-07 07:57 | NUR ---
HAND-OFF: Report given to ROMAIN Murdock, patient in stable condition, plan of care endorsed.
--- NOTE | 2019-07-07 07:59 | General Progress Note ---
Assessment/Plan Status: stable Assessment/Plan: Problems: (1) Acute GI bleeding ICD Codes: K92.2 - Gastrointestinal hemorrhage, unspecified SNOMED: 54792192 (2) GI bleed ICD Codes: K92.2 - Gastrointestinal hemorrhage, unspecified SNOMED: 91114398 (3) Varices, esophageal ICD Codes: I85.00 - Esophageal varices without bleeding SNOMED: 76157572 (4) Cirrhosis ICD Codes: K74.60 - Unspecified cirrhosis of liver SNOMED: 72612876 Status: stable Assessment/Plan Assessment - Cirrhosis - UGIB due to esophageal varicies s/p banding - C Diff, on IV flagyl (no oral access for PO vanco at this time) - Resp failure - anemia - lactic acidosis - leukocytosis - guarded - s/p paracentesis Recommendations - serial CBC - transfuse PRN to keep Hg > 7 - on diet - H2B - off octreotide - IV abx - follow labs Subjective ROS Limited/Unobtainable: Yes Allergies: Coded Allergies: No Known Allergies (Unverified , 06/27/19) Objective Last 24 Hour Vital Signs Date Time Temp Pulse Resp B/P (MAP) Pulse Ox O2 Delivery O2 Flow Rate FiO2 07/07/19 04:00 97 07/07/19 04:00 97.5 98 20 111/65 (80) 95 07/07/19 00:00 97.7 98 18 128/71 (90) 95 07/07/19 00:00 97 07/06/19 21:00 Room Air 07/06/19 20:00 97 07/06/19 20:00 97.3 101 18 134/95 (108) 98 07/06/19 16:30 98.0 79 20 132/72 (92) 98 07/06/19 16:00 96 07/06/19 12:00 93 07/06/19 12:00 97.1 88 20 110/69 (83) 93 07/06/19 09:00 Room Air 07/06/19 08:00 92 07/06/19 08:00 98.6 68 20 138/51 (80) 100 Intake and Output 07/06/19 07/07/19 18:59 06:59 Intake Total 360 ml Output Total 350 ml 400 ml Balance 10 ml -400 ml Intake Oral 360 ml Output Urine Total 350 ml 400 ml # Bowel Movements 2 3 Laboratory Tests 07/07/19 06:15: White Blood Count 13.1H, Red Blood Count 2.77L, Hemoglobin 8.7L, Hematocrit 25.9L, Mean Corpuscular Volume 93, Mean Corpuscular Hemoglobin 31.5H, Mean Corpuscular Hemoglobin Concent 33.7, Red Cell Distribution Width 16.9H, Platelet Count 48L, Mean Platelet Volume 7.4, Neutrophils (%) (Auto) , Lymphocytes (%) (Auto) , Monocytes (%) (Auto) , Eosinophils (%) (Auto) , Basophils (%) (Auto) , Neutrophils % (Manual) [Pending], Lymphocytes % (Manual) [Pending], Platelet Estimate [Pending], Platelet Morphology [Pending], Sodium Level [Pending], Potassium Level [Pending], Chloride Level [Pending], Carbon Dioxide Level [Pending], Blood Urea Nitrogen [Pending], Creatinine [Pending], Estimat Glomerular Filtration Rate [Pending], Glucose Level [Pending], Calcium Level [Pending], Total Bilirubin [Pending], Aspartate Amino Transf (AST/SGOT) [ Pending], Alanine Aminotransferase (ALT/SGPT) [Pending], Alkaline Phosphatase [ Pending], Total Protein [Pending], Albumin [Pending], Globulin [Pending] Height (Feet): 5 Height (Inches): 2.00 Weight (Pounds): 144 General Appearance: alert EENT: PERRL/EOMI Neck: supple Cardiovascular: normal rate Respiratory/Chest: decreased breath sounds Abdomen: normal bowel sounds, non tender, soft Extremities: non-tender Mina Garcia MD Jul 07, 2019 07:59
[2019-07-07 08:00] VITALS: BP 123/75
--- NOTE | 2019-07-07 08:00 | NUR ---
NURSE NOTES: Nurse report given by ROMAIN Solano. Patient's in stable condition, Ao x 2, unable to assess orietation since patient's yoruba speaking only. IV is running fluid through PICC line, no sign of infection or bleeding. Bed at lowest level, call light within reach, break engaged, legs elevated. Abdomen is distended, hard and oozing. Will continue to monitor.
[2019-07-07 08:14] LABS: ALBUMIN 1.3 G/DL (3.4-5.0); ALBUMIN/GLOBULIN RATIO 0.5 (1.0-2.7); ALKALINE PHOSPHATASE 126 U/L (46-116); ANION GAP 8 mmol/L (5-15); BILIRUBIN,TOTAL 5.7 MG/DL (0.2-1.0); BLOOD UREA NITROGEN 19 mg/dL (7-18); CALCIUM 6.9 MG/DL (8.5-10.1); CARBON DIOXIDE 19 MMOL/L (21-32); CHLORIDE 111 MMOL/L (98-107); CREATININE 0.6 MG/DL (0.55-1.30); POTASSIUM 3.6 MMOL/L (3.5-5.1); SODIUM 138 MMOL/L (136-145)
--- NOTE | 2019-07-07 08:26 | Diagnostic Imaging Report ---
EXAM: XR Chest, 1 View CLINICAL HISTORY: INFECT TECHNIQUE: Frontal view of the chest. COMPARISON: Chest x-rays dated 07/03/19 FINDINGS: Lungs: Low lung volumes, which may be related to shallow inspiration. Subsegmental atelectasis versus infiltrates in bilateral lung bases. Pleural space: Unremarkable. The costophrenic angles are sharp. No visible pneumothorax. Heart: Cardiomegaly. Mediastinum: Unremarkable. Bones/joints: Unremarkable. Tubes, lines and devices: Interval removal of endotracheal tube. Right-sided PICC with the catheter tip in the region of the right atrium. IMPRESSION: 1. Interval removal of endotracheal tube. 2. Right-sided PICC with the catheter tip in the region of the right atrium. 3. Cardiomegaly. 4. Low lung volumes, which may be related to shallow inspiration. 5. Subsegmental atelectasis versus infiltrates in bilateral lung bases, unchanged.
[2019-07-07] MEDS: cefTRIAXone 1 GM in NS 55 ML IVPB SCH (08:30)
[2019-07-07 08:31] LABS: ALANINE AMINOTRANSFERASE 121 U/L (12-78); ASPARTATE AMINO TRANSFERASE 47 U/L (15-37)
[2019-07-07 08:45] LABS: BILIRUBIN,DIRECT 4.1 MG/DL (0.0-0.3)
--- NOTE | 2019-07-07 10:06 | Pulmonology Progress Note ---
Assessment/Plan Assessment/Plan IMPRESSION: 1. Respiratory failure. Resolved. Extubated 07/03/19 2. Upper GI bleed, likely gastric varices. S/p EGD 3. Diabetes mellitus. 4. Anemia. Hgb stable 5. Thrombocytopenia; 6. Likely hepatic encephalopathy; continue lactulose; has C diff + DISCUSSION: Low flow O2 Continue lactulose Abx for C diff Slowly improving James Zeng M.D. Subjective Interval Events: None new Constitutional: Reports: no symptoms HEENT: Repors: no symptoms Respiratory: Reports: no symptoms Cardiovascular: Reports: no symptoms Gastrointestinal/Abdominal: Reports: no symptoms Genitourinary: Reports: no symptoms Allergies: Coded Allergies: No Known Allergies (Unverified , 06/27/19) Objective Last 24 Hour Vital Signs Date Time Temp Pulse Resp B/P (MAP) Pulse Ox O2 Delivery O2 Flow Rate FiO2 07/07/19 09:00 Room Air 07/07/19 08:00 97 07/07/19 08:00 97.4 100 20 123/75 (91) 95 07/07/19 04:00 97 07/07/19 04:00 97.5 98 20 111/65 (80) 95 07/07/19 00:00 97.7 98 18 128/71 (90) 95 07/07/19 00:00 97 07/06/19 21:00 Room Air 07/06/19 20:00 97 07/06/19 20:00 97.3 101 18 134/95 (108) 98 07/06/19 16:30 98.0 79 20 132/72 (92) 98 07/06/19 16:00 96 07/06/19 12:00 93 07/06/19 12:00 97.1 88 20 110/69 (83) 93 Intake and Output 07/06/19 07/07/19 18:59 06:59 Intake Total 360 ml Output Total 350 ml 400 ml Balance 10 ml -400 ml Intake Oral 360 ml Output Urine Total 350 ml 400 ml # Bowel Movements 2 3 General Appearance: no acute distress HEENT: normocephalic Respiratory/Chest: chest wall non-tender, lungs clear Cardiovascular: normal peripheral pulses Abdomen: normal bowel sounds Laboratory Tests 07/07/19 06:15: White Blood Count 13.1H, Red Blood Count 2.77L, Hemoglobin 8.7L, Hematocrit 25.9L, Mean Corpuscular Volume 93, Mean Corpuscular Hemoglobin 31.5H, Mean Corpuscular Hemoglobin Concent 33.7, Red Cell Distribution Width 16.9H, Platelet Count 48L, Mean Platelet Volume 7.4, Neutrophils (%) (Auto) , Lymphocytes (%) (Auto) , Monocytes (%) (Auto) , Eosinophils (%) (Auto) , Basophils (%) (Auto) , Differential Total Cells Counted 100, Neutrophils % ( Manual) 95H, Lymphocytes % (Manual) 2L, Monocytes % (Manual) 1, Eosinophils % ( Manual) 2, Basophils % (Manual) 0, Band Neutrophils 0, Platelet Estimate DecreasedL, Platelet Morphology Normal, Polychromasia 1+, Hypochromasia 1+, Anisocytosis 1+, Sodium Level 138, Potassium Level 3.6, Chloride Level 111H, Carbon Dioxide Level 19L, Anion Gap 8, Blood Urea Nitrogen 19H, Creatinine 0.6, Estimat Glomerular Filtration Rate > 60, Glucose Level 153H, Calcium Level 6.9L , Total Bilirubin 5.7H, Direct Bilirubin 4.1H, Aspartate Amino Transf (AST/SGOT ) 47H, Alanine Aminotransferase (ALT/SGPT) 121H, Alkaline Phosphatase 126H, Total Protein 4.0L, Albumin 1.3L, Globulin 2.7, Albumin/Globulin Ratio 0.5L Current Medications Medications (Trade) Dose Ordered Sig/Naseem Route PRN Reason Start Time Stop Time Status Last Admin Dose Admin Ceftriaxone Sodium 1 gm/ Sodium Chloride 55 ml @ 110 mls/hr DAILY IVPB 07/05/19 09:00 07/09/19 08:59 07/07/19 08:30 Chlorhexidine Gluconate (Mer-Hex 2%) 1 applic DAILY@2000 TOPIC 07/04/19 20:00 08/01/19 19:59 07/06/19 20:41 Dextrose (Dextrose 50%) 25 ml Q30M PRN IV Hypoglycemia 07/04/19 16:00 07/28/19 04:59 Dextrose (Dextrose 50%) 50 ml Q30M PRN IV Hypoglycemia 07/04/19 16:00 07/28/19 04:59 Famotidine (Pepcid I.v.) 20 mg Q12HR IVP 07/04/19 21:00 08/01/19 20:59 07/07/19 08:29 Insulin Aspart (NovoLOG) BEFORE MEALS AND HS SUBQ 07/04/19 16:30 07/28/19 06:29 07/07/19 06:55 Metronidazole 100 ml @ 100 mls/hr Q8HR IVPB 07/04/19 22:00 07/08/19 13:59 07/07/19 05:39 Morphine Sulfate (Morphine Sulfate) 2 mg Q4H PRN IVP For Pain 07/04/19 15:43 07/11/19 15:42 Ondansetron HCl (Zofran) 4 mg Q6H PRN IVP Nausea & Vomiting 07/04/19 15:43 08/03/19 15:42 Sodium Chloride 1,000 ml @ 50 mls/hr Q20H IV 07/04/19 15:42 08/03/19 15:41 07/07/19 04:44 Vancomycin HCl (Firvanq) 125 mg Q6HR ORAL 07/04/19 18:00 07/11/19 17:59 07/07/19 05:40 Vancomycin HCl (Vanco rx to dose) 1 ea DAILY PRN MISC Per rx protocol 07/05/19 09:00 08/01/19 12:29 Vancomycin HCl 750 mg/Sodium Chloride 275 ml @ 183.333 mls/hr Q24H IVPB 07/05/19 14:00 07/08/19 13:59 07/06/19 14:54 James Zeng MD Jul 07, 2019 10:06
--- NOTE | 2019-07-07 10:15 | NUR ---
NURSE NOTES: Paged Dr. St regarding patient's renew medication orders and spoke with office staff, Wong and left a message for Dr. St. Awaiting for response.
--- NOTE | 2019-07-07 11:44 | Hematology/Onc Progress Note ---
Assessment/Plan Assessment/Plan Assessment and Recs: # Anemia of GI bleed -- patient presents with occult+ bleeding, anemia panel reviewed iron stores are moderate but given 4 units prbc, can be falsely moderate, recheck in several days, anemia is due to variceal bleed --> as per GI eval, may need endoscopy --> has been started on ppi --> cea has been ordered - normal --> Hgb goal >7. Transfuse prn. --> (s/p 4 units prbc) --> Iron x 1 dose has been orderd --> Medications have been reviewed --> continue ppi and octreotide prn per gi --> hgb trend 8.8-->8.8-->8.2-->7.2->9.6-->9.1-->8.8-->8.7 # Thrombocytopenia - potential causes multifactorial, evaluate liver and viral etiologies to begin, also could be related to underlying medications patient has received. In this case is due to etoh abuse, esoph varices and cirrhosis is noted, also potential c.diff infection --> Hep panel pending and HIV negative --> US abd does show cirrhosis --> Peripheral smear ordered to evaluate for blasts /schistocytes does not show any --> abx and other meds have been reviewed --> ok for ppx if plt >50k w/ either heparin or lovenox --> Transfuse if Plt < 20k and fever, or if Plt < 10k without fever --> plt count 90k-->46k-->63k-->68k-->52k-->48k --> EGD per gi --> s/p plt transfusion on 06/29 # Varices, esophageal --> potential rupture as per gi recs --> off octreotide # Cirrhosis --> with hepatic enceph --> gi recs prn # Resp failure --> was intubated --> now extubated on ra # Hypokalemia with dec K --> given IV k as per pcp The timing of this note does not necessarily reflect the time of the patient was seen. GREATLY APPRECIATE CONSULTATION. Subjective Constitutional: Denies: no symptoms, chills, fever, malaise, weakness, other HEENT: Denies: no symptoms, eye pain, blurred vision, tearing, double vision, ear pain, ear discharge, nose pain, nose congestion, throat pain, throat swelling, mouth pain, mouth swelling, other Cardiovascular: Denies: no symptoms, chest pain, edema, irregular heart rate, lightheadedness, palpitations, syncope, other Respiratory: Denies: no symptoms, cough, shortness of breath, SOB with excertion, SOB at rest, sputum, wheezing, other Gastrointestinal/Abdominal: Denies: no symptoms, abdomen distended, abdominal pain, black stools, tarry stools, blood in stool, constipated, diarrhea, difficulty swallowing, nausea, poor appetite, poor fluid intake, rectal bleeding , vomiting, other Genitourinary: Denies: no symptoms, burning, discharge, frequency, flank pain, hematuria, incontinence, pain, urgency, other Neurologic/Psychiatric: Denies: no symptoms, anxiety, depressed, emotional problems, headache, numbness, paresthesia, pre-existing deficit, seizure, tingling, tremors, weakness, other Endocrine: Denies: no symptoms, excessive sweating, flushing, intolerance to cold, intolerance to heat, increased hunger, increased thirst, increased urine, unexplained weight gain, unexplained weight loss, other Allergies: Coded Allergies: No Known Allergies (Unverified , 06/27/19) Subjective 06/29: icu, s/p egd and plt tx, levo gtt 07/01: remains on vent, ivelisse Montero rn, with c. 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 with heeler machine, no f/c, no night sweats 07/06: no f/c, vs stable, denies pain, on abx, labs noted 07/07: labs reviewed, plt slightly lower, on abx for c.diff Objective Objective Current Medications Medications (Trade) Dose Ordered Sig/Naseem Route PRN Reason Start Time Stop Time Status Last Admin Dose Admin Ceftriaxone Sodium 1 gm/ Sodium Chloride 55 ml @ 110 mls/hr DAILY IVPB 07/05/19 09:00 07/09/19 08:59 07/07/19 08:30 Chlorhexidine Gluconate (Mer-Hex 2%) 1 applic DAILY@2000 TOPIC 07/04/19 20:00 08/01/19 19:59 07/06/19 20:41 Dextrose (Dextrose 50%) 25 ml Q30M PRN IV Hypoglycemia 07/04/19 16:00 07/28/19 04:59 Dextrose (Dextrose 50%) 50 ml Q30M PRN IV Hypoglycemia 07/04/19 16:00 07/28/19 04:59 Famotidine (Pepcid I.v.) 20 mg Q12HR IVP 07/04/19 21:00 08/01/19 20:59 07/07/19 08:29 Insulin Aspart (NovoLOG) BEFORE MEALS AND HS SUBQ 07/04/19 16:30 07/28/19 06:29 07/07/19 06:55 Metronidazole 100 ml @ 100 mls/hr Q8HR IVPB 07/07/19 14:00 07/13/19 13:59 Morphine Sulfate (Morphine Sulfate) 2 mg Q4H PRN IVP For Pain 07/04/19 15:43 07/11/19 15:42 Ondansetron HCl (Zofran) 4 mg Q6H PRN IVP Nausea & Vomiting 07/04/19 15:43 08/03/19 15:42 Sodium Chloride 1,000 ml @ 50 mls/hr Q20H IV 07/04/19 15:42 08/03/19 15:41 07/07/19 04:44 Vancomycin HCl (Firvanq) 125 mg Q6HR ORAL 07/04/19 18:00 07/11/19 17:59 07/07/19 05:40 Vancomycin HCl (Vanco rx to dose) 1 ea DAILY PRN MISC Per rx protocol 07/05/19 09:00 08/01/19 12:29 Vancomycin HCl 750 mg/Sodium Chloride 275 ml @ 183.333 mls/hr Q24H IVPB 07/07/19 14:00 07/12/19 13:59 Last 24 Hour Vital Signs Date Time Temp Pulse Resp B/P (MAP) Pulse Ox O2 Delivery O2 Flow Rate FiO2 07/07/19 09:00 Room Air 07/07/19 08:00 97 07/07/19 08:00 97.4 100 20 123/75 (91) 95 07/07/19 04:00 97 07/07/19 04:00 97.5 98 20 111/65 (80) 95 07/07/19 00:00 97.7 98 18 128/71 (90) 95 07/07/19 00:00 97 07/06/19 21:00 Room Air 07/06/19 20:00 97 07/06/19 20:00 97.3 101 18 134/95 (108) 98 07/06/19 16:30 98.0 79 20 132/72 (92) 98 07/06/19 16:00 96 07/06/19 12:00 93 07/06/19 12:00 97.1 88 20 110/69 (83) 93 07/06/19 09:00 Room Air 07/06/19 08:00 92 07/06/19 08:00 98.6 68 20 138/51 (80) 100 07/06/19 04:00 90 07/06/19 04:00 97.5 92 18 118/75 (89) 98 07/06/19 03:38 93 Nasal Cannula 2.0 28 07/06/19 00:00 91 07/06/19 00:00 98.2 91 19 132/47 (75) 95 07/05/19 21:00 Room Air 07/05/19 20:00 98.5 93 20 132/76 (94) 93 07/05/19 20:00 90 07/05/19 16:00 07/05/19 16:00 93 07/05/19 12:00 97.3 90 20 112/58 (76) 96 07/05/19 12:00 91 Intake and Output 07/06/19 07/07/19 18:59 06:59 Intake Total 360 ml Output Total 350 ml 400 ml Balance 10 ml -400 ml Intake Oral 360 ml Output Urine Total 350 ml 400 ml # Bowel Movements 2 3 Labs Test 07/05/19 05:00 07/05/19 13:10 07/06/19 05:29 07/07/19 06:15 White Blood Count 11.5 K/UL (4.8-10.8) 10.7 K/UL (4.8-10.8) 13.1 K/UL (4.8-10.8) Red Blood Count 2.96 M/UL (4.20-5.40) 2.82 M/UL (4.20-5.40) 2.77 M/UL (4.20-5.40) Hemoglobin 9.1 G/DL (12.0-16.0) 8.8 G/DL (12.0-16.0) 8.7 G/DL (12.0-16.0) Hematocrit 27.5 % (37.0-47.0) 26.6 % (37.0-47.0) 25.9 % (37.0-47.0) Mean Corpuscular Volume 93 FL (80-99) 94 FL (80-99) 93 FL (80-99) Mean Corpuscular Hemoglobin 30.9 PG (27.0-31.0) 31.1 PG (27.0-31.0) 31.5 PG (27.0-31.0) Mean Corpuscular Hemoglobin Concent 33.3 G/DL (32.0-36.0) 33.0 G/DL (32.0-36.0) 33.7 G/DL (32.0-36.0) Red Cell Distribution Width 16.5 % (11.6-14.8) 16.5 % (11.6-14.8) 16.9 % (11.6-14.8) Platelet Count 68 K/UL (150-450) 52 K/UL (150-450) 48 K/UL (150-450) Mean Platelet Volume 7.6 FL (6.5-10.1) 8.5 FL (6.5-10.1) 7.4 FL (6.5-10.1) Neutrophils (%) (Auto) % (45.0-75.0) % (45.0-75.0) % (45.0-75.0) Lymphocytes (%) (Auto) % (20.0-45.0) % (20.0-45.0) % (20.0-45.0) Monocytes (%) (Auto) % (1.0-10.0) % (1.0-10.0) % (1.0-10.0) Eosinophils (%) (Auto) % (0.0-3.0) % (0.0-3.0) % (0.0-3.0) Basophils (%) (Auto) % (0.0-2.0) % (0.0-2.0) % (0.0-2.0) Differential Total Cells Counted 100 100 100 Neutrophils % (Manual) 97 % (45-75) 93 % (45-75) 95 % (45-75) Lymphocytes % (Manual) 1 % (20-45) 2 % (20-45) 2 % (20-45) Monocytes % (Manual) 2 % (1-10) 3 % (1-10) 1 % (1-10) Eosinophils % (Manual) 0 % (0-3) 2 % (0-3) 2 % (0-3) Basophils % (Manual) 0 % (0-2) 0 % (0-2) 0 % (0-2) Band Neutrophils 0 % (0-8) 0 % (0-8) 0 % (0-8) Platelet Estimate Decreased Decreased Decreased Platelet Morphology Normal Normal Normal Polychromasia Occasional 1+ 1+ Anisocytosis 2+ 1+ 1+ Sodium Level 137 MMOL/L (136-145) 138 MMOL/L (136-145) 138 MMOL/L (136-145) Potassium Level 4.1 MMOL/L (3.5-5.1) 4.0 MMOL/L (3.5-5.1) 3.6 MMOL/L (3.5-5.1) Chloride Level 111 MMOL/L (98-107) 112 MMOL/L (98-107) 111 MMOL/L (98-107) Carbon Dioxide Level 19 MMOL/L (21-32) 21 MMOL/L (21-32) 19 MMOL/L (21-32) Anion Gap 7 mmol/L (5-15) 5 mmol/L (5-15) 8 mmol/L (5-15) Blood Urea Nitrogen 28 mg/dL (7-18) 26 mg/dL (7-18) 19 mg/dL (7-18) Creatinine 0.7 MG/DL (0.55-1.30) 0.6 MG/DL (0.55-1.30) 0.6 MG/DL (0.55-1.30) Estimat Glomerular Filtration Rate > 60 mL/min (>60) > 60 mL/min (>60) > 60 mL/min (>60) Glucose Level 129 MG/DL (74-106) 121 MG/DL (74-106) 153 MG/DL (74-106) Calcium Level 7.1 MG/DL (8.5-10.1) 7.4 MG/DL (8.5-10.1) 6.9 MG/DL (8.5-10.1) Vancomycin Level Trough 20.3 ug/mL (5.0-12.0) Hypochromasia 1+ 1+ Phosphorus Level 1.9 MG/DL (2.5-4.9) Magnesium Level 1.8 MG/DL (1.8-2.4) Total Bilirubin 4.7 MG/DL (0.2-1.0) 5.7 MG/DL (0.2-1.0) Direct Bilirubin 2.9 MG/DL (0.0-0.3) 4.1 MG/DL (0.0-0.3) Aspartate Amino Transf (AST/SGOT) 46 U/L (15-37) 47 U/L (15-37) Alanine Aminotransferase (ALT/SGPT) 161 U/L (12-78) 121 U/L (12-78) Alkaline Phosphatase 137 U/L (46-116) 126 U/L (46-116) Total Protein 4.5 G/DL (6.4-8.2) 4.0 G/DL (6.4-8.2) Albumin 1.4 G/DL (3.4-5.0) 1.3 G/DL (3.4-5.0) Globulin 3.1 g/dL 2.7 g/dL Albumin/Globulin Ratio 0.5 (1.0-2.7) 0.5 (1.0-2.7) Height (Feet): 5 Height (Inches): 2.00 Weight (Pounds): 144 Objective Physical Exam: Vitals: reviewed General Appearance: NAD HEENT: normocephalic, atraumatic Respiratory/Chest: normal breath sounds bilaterally Cardiovascular/Chest: normal peripheral pulses, normal rate Abdomen: normal bowel sounds, soft, nontender Extremities: normal range of motion Anthony Chaudhary MD Jul 07, 2019 11:44
[2019-07-07 12:00] VITALS: BP 115/68
[2019-07-07] MEDS ORDERED: Vancomycin 750 MG in NS 275 ML IVPB SCH (14:00)
[2019-07-07 16:00] VITALS: BP 116/75
--- NOTE | 2019-07-07 16:19 | Infectious Diseases Prog Note ---
Assessment/Plan Assessment/Plan ASSESSMENT AND PLAN: 1. mrsa pna, sepsis, shock, c.diff. +, leukocytosis, fevers, respiratory failure , ? sbp - vancomycin, rocephin, flagyl, po vancomycin - f/u on labs, chest x-ray. paracentesis as indicated, monitor leukocytosis - supportive care, extubated, now in telemetry - recheck sputum culture for worsening chest x-ray - monitor leukocytosis 2. GI bleed. 3. Anemia. 4. H. pylori infection. 5. Diabetes. 6. Esophageal varices. 7. Respiratory failure. 8. Anemia and thrombocytopenia. 9. Liver cirrhosis. 10. Continue treatment per primary consultants. 11. No known drug allergies. 12. Social history is negative. 13. Family history is noncontributory. 14. MAR was noted. 15. Case was discussed with RN. 16. Case was discussed with Dr. Hunter 17. mrsa colonization Subjective Constitutional: Denies: fever HEENT: Reports: congestion - mild Respiratory: Reports: shortness of breath - mild Cardiovascular: Denies: chest pain Gastrointestinal/Abdominal: Denies: nausea, vomiting, diarrhea Genitourinary: Reports: other - + jackson Psychiatric: Reports: other - NA Skin: Denies: rash Hematologic: Denies: bleeding Musculoskeletal: Denies: pain Allergies: Coded Allergies: No Known Allergies (Unverified , 06/27/19) Objective Vital Signs Last 24 Hour Vital Signs Date Time Temp Pulse Resp B/P (MAP) Pulse Ox O2 Delivery O2 Flow Rate FiO2 07/07/19 12:00 97.2 96 20 115/68 (84) 98 07/07/19 12:00 93 07/07/19 09:00 Nasal Cannula 2.0 07/07/19 08:00 97 07/07/19 08:00 97.4 100 20 123/75 (91) 95 07/07/19 04:00 97 07/07/19 04:00 97.5 98 20 111/65 (80) 95 07/07/19 00:00 97.7 98 18 128/71 (90) 95 07/07/19 00:00 97 07/06/19 21:00 Room Air 07/06/19 20:00 97 07/06/19 20:00 97.3 101 18 134/95 (108) 98 07/06/19 16:30 98.0 79 20 132/72 (92) 98 Height (Feet): 5 Height (Inches): 2.00 Weight (Pounds): 144 General Appearance: no acute distress HEENT: normocephalic, atraumatic, mucous membranes moist, other - ? icterus Respiratory/Chest: lungs clear, normal breath sounds, no respiratory distress, no accessory muscle use, decreased breath sounds Cardiovascular: normal rate, regular rhythm, no gallop/murmur, no JVD Abdomen: hypoactive bowel sounds, distended Genitourinary: other - + jackson Extremities: no cyanosis Skin: no rash Neurologic/Psychiatric: clinical manager II-XII grossly normal, no motor/sensory deficits, abnormal gait, alert, responsive Lymphatic: no neck adenopathy Musculoskeletal: no effusion Objective 06/30/19 - chest x-ray - IMPRESSION: 1. Endotracheal tube has been pulled back and is now 2 cm above the halima in good position. 2. Improved lung volumes. Mild increased vascular interstitial prominence. Abdominal US: Impression: Evidence of hepatic cirrhosis, with coarsened hepatic echogenicity and surface nodularity Evidence of portal hypertension, with ascites, hepatic hilar varices, and abnormal portal venous flow No gallstones. Gallbladder wall is markedly thickened. This is probably edema due to the hepatic abnormalities. Acalculous acute cholecystitis or cholecystitis secondary to occult stone disease excludable, and hepatobiliary nuclear scan could be considered if there is high clinical suspicion Left renal cyst Node inability to visualize the pancreas and portions of the abdominal aorta Chest x-ray - 07/03/19 - Impression: New/increased bilateral basilar atelectatic changes and possible right basilar consolidation, over 3 days Other findings as noted 07/07/19 - chest x-ray - IMPRESSION: 1. Interval removal of endotracheal tube. 2. Right-sided PICC with the catheter tip in the region of the right atrium. 3. Cardiomegaly. 4. Low lung volumes, which may be related to shallow inspiration. 5. Subsegmental atelectasis versus infiltrates in bilateral lung bases, unchanged. Microbiology Date/Time Source Procedure Growth Status 06/29/19 17:15 Blood Blood Culture - Final NO GROWTH AFTER 5 DAYS Complete 06/30/19 18:00 Sputum Induced Gram Stain - Final Complete 06/30/19 18:00 Sputum Culture - Final Staphylococcus Aureus - Mrsa Usual Respiratory Araceli Complete 06/30/19 14:50 Stool Clostridium difficile Toxin Assay - Final Complete 07/03/19 14:15 Abdominal Fluid Gram Stain - Final Complete 07/03/19 14:15 Abdominal Fluid Body Fluid Culture - Final NO GROWTH Complete Laboratory Tests Test 07/07/19 06:15 White Blood Count 13.1 K/UL (4.8-10.8) H Red Blood Count 2.77 M/UL (4.20-5.40) L Hemoglobin 8.7 G/DL (12.0-16.0) L Hematocrit 25.9 % (37.0-47.0) L Mean Corpuscular Volume 93 FL (80-99) Mean Corpuscular Hemoglobin 31.5 PG (27.0-31.0) H Mean Corpuscular Hemoglobin Concent 33.7 G/DL (32.0-36.0) Red Cell Distribution Width 16.9 % (11.6-14.8) H Platelet Count 48 K/UL (150-450) L Mean Platelet Volume 7.4 FL (6.5-10.1) Neutrophils (%) (Auto) % (45.0-75.0) Lymphocytes (%) (Auto) % (20.0-45.0) Monocytes (%) (Auto) % (1.0-10.0) Eosinophils (%) (Auto) % (0.0-3.0) Basophils (%) (Auto) % (0.0-2.0) Differential Total Cells Counted 100 Neutrophils % (Manual) 95 % (45-75) H Lymphocytes % (Manual) 2 % (20-45) L Monocytes % (Manual) 1 % (1-10) Eosinophils % (Manual) 2 % (0-3) Basophils % (Manual) 0 % (0-2) Band Neutrophils 0 % (0-8) Platelet Estimate Decreased L Platelet Morphology Normal Polychromasia 1+ Hypochromasia 1+ Anisocytosis 1+ Sodium Level 138 MMOL/L (136-145) Potassium Level 3.6 MMOL/L (3.5-5.1) Chloride Level 111 MMOL/L (98-107) H Carbon Dioxide Level 19 MMOL/L (21-32) L Anion Gap 8 mmol/L (5-15) Blood Urea Nitrogen 19 mg/dL (7-18) H Creatinine 0.6 MG/DL (0.55-1.30) Estimat Glomerular Filtration Rate > 60 mL/min (>60) Glucose Level 153 MG/DL (74-106) H Calcium Level 6.9 MG/DL (8.5-10.1) L Ferritin 307 NG/ML (8-388) Total Bilirubin 5.7 MG/DL (0.2-1.0) H Direct Bilirubin 4.1 MG/DL (0.0-0.3) H Aspartate Amino Transf (AST/SGOT) 47 U/L (15-37) H Alanine Aminotransferase (ALT/SGPT) 121 U/L (12-78) H Alkaline Phosphatase 126 U/L (46-116) H Total Protein 4.0 G/DL (6.4-8.2) L Albumin 1.3 G/DL (3.4-5.0) L Globulin 2.7 g/dL Albumin/Globulin Ratio 0.5 (1.0-2.7) L Current Medications Medications (Trade) Dose Ordered Sig/Naseem Route PRN Reason Start Time Stop Time Status Last Admin Dose Admin Ceftriaxone Sodium 1 gm/ Sodium Chloride 55 ml @ 110 mls/hr DAILY IVPB 07/05/19 09:00 07/09/19 08:59 07/07/19 08:30 Chlorhexidine Gluconate (Mer-Hex 2%) 1 applic DAILY@2000 TOPIC 07/04/19 20:00 08/01/19 19:59 07/06/19 20:41 Dextrose (Dextrose 50%) 25 ml Q30M PRN IV Hypoglycemia 07/04/19 16:00 07/28/19 04:59 Dextrose (Dextrose 50%) 50 ml Q30M PRN IV Hypoglycemia 07/04/19 16:00 07/28/19 04:59 Famotidine (Pepcid I.v.) 20 mg Q12HR IVP 07/04/19 21:00 08/01/19 20:59 07/07/19 08:29 Insulin Aspart (NovoLOG) BEFORE MEALS AND HS SUBQ 07/04/19 16:30 07/28/19 06:29 07/07/19 12:08 Metronidazole 100 ml @ 100 mls/hr Q8HR IVPB 07/07/19 14:00 07/13/19 13:59 07/07/19 14:19 Morphine Sulfate (Morphine Sulfate) 2 mg Q4H PRN IVP For Pain 07/04/19 15:43 07/11/19 15:42 Ondansetron HCl (Zofran) 4 mg Q6H PRN IVP Nausea & Vomiting 07/04/19 15:43 08/03/19 15:42 Sodium Chloride 1,000 ml @ 50 mls/hr Q20H IV 07/04/19 15:42 08/03/19 15:41 07/07/19 04:44 Vancomycin HCl (Firvanq) 125 mg Q6HR ORAL 07/04/19 18:00 07/11/19 17:59 07/07/19 12:09 Vancomycin HCl (Vanco rx to dose) 1 ea DAILY PRN MISC Per rx protocol 07/05/19 09:00 08/01/19 12:29 Vancomycin HCl 750 mg/Sodium Chloride 275 ml @ 183.333 mls/hr Q24H IVPB 07/07/19 14:00 07/12/19 13:59 07/07/19 14:19 Jay Hurtado MD Jul 07, 2019 16:19
--- NOTE | 2019-07-07 17:58 | Surgery Progress Note ---
Surgery Progress Note Subjective Additional Comments leukocytosis liver enzymes worsening family at bedside. prognosis poor and guarded exam stable. Objective Last 24 Hour Vital Signs Date Time Temp Pulse Resp B/P (MAP) Pulse Ox O2 Delivery O2 Flow Rate FiO2 07/07/19 16:00 97.5 102 19 116/75 (89) 98 07/07/19 12:00 97.2 96 20 115/68 (84) 98 07/07/19 12:00 93 07/07/19 09:00 Nasal Cannula 2.0 07/07/19 08:00 97 07/07/19 08:00 97.4 100 20 123/75 (91) 95 07/07/19 04:00 97 07/07/19 04:00 97.5 98 20 111/65 (80) 95 07/07/19 00:00 97.7 98 18 128/71 (90) 95 07/07/19 00:00 97 07/06/19 21:00 Room Air 07/06/19 20:00 97 07/06/19 20:00 97.3 101 18 134/95 (108) 98 I&O Intake and Output 07/06/19 07/07/19 19:00 07:00 Intake Total 240 ml Output Total 350 ml 400 ml Balance -110 ml -400 ml Intake Oral 240 ml Output Urine Total 350 ml 400 ml # Bowel Movements 2 3 Cardiovascular: RSR Respiratory: clear Abdomen: soft, distended, non-tender, present bowel sounds, decreased bowel sounds Extremities: no tenderness, no cyanosis Laboratory Tests Test 07/07/19 06:15 White Blood Count 13.1 K/UL (4.8-10.8) H Red Blood Count 2.77 M/UL (4.20-5.40) L Hemoglobin 8.7 G/DL (12.0-16.0) L Hematocrit 25.9 % (37.0-47.0) L Mean Corpuscular Volume 93 FL (80-99) Mean Corpuscular Hemoglobin 31.5 PG (27.0-31.0) H Mean Corpuscular Hemoglobin Concent 33.7 G/DL (32.0-36.0) Red Cell Distribution Width 16.9 % (11.6-14.8) H Platelet Count 48 K/UL (150-450) L Mean Platelet Volume 7.4 FL (6.5-10.1) Neutrophils (%) (Auto) % (45.0-75.0) Lymphocytes (%) (Auto) % (20.0-45.0) Monocytes (%) (Auto) % (1.0-10.0) Eosinophils (%) (Auto) % (0.0-3.0) Basophils (%) (Auto) % (0.0-2.0) Differential Total Cells Counted 100 Neutrophils % (Manual) 95 % (45-75) H Lymphocytes % (Manual) 2 % (20-45) L Monocytes % (Manual) 1 % (1-10) Eosinophils % (Manual) 2 % (0-3) Basophils % (Manual) 0 % (0-2) Band Neutrophils 0 % (0-8) Platelet Estimate Decreased L Platelet Morphology Normal Polychromasia 1+ Hypochromasia 1+ Anisocytosis 1+ Sodium Level 138 MMOL/L (136-145) Potassium Level 3.6 MMOL/L (3.5-5.1) Chloride Level 111 MMOL/L (98-107) H Carbon Dioxide Level 19 MMOL/L (21-32) L Anion Gap 8 mmol/L (5-15) Blood Urea Nitrogen 19 mg/dL (7-18) H Creatinine 0.6 MG/DL (0.55-1.30) Estimat Glomerular Filtration Rate > 60 mL/min (>60) Glucose Level 153 MG/DL (74-106) H Calcium Level 6.9 MG/DL (8.5-10.1) L Ferritin 307 NG/ML (8-388) Total Bilirubin 5.7 MG/DL (0.2-1.0) H Direct Bilirubin 4.1 MG/DL (0.0-0.3) H Aspartate Amino Transf (AST/SGOT) 47 U/L (15-37) H Alanine Aminotransferase (ALT/SGPT) 121 U/L (12-78) H Alkaline Phosphatase 126 U/L (46-116) H Total Protein 4.0 G/DL (6.4-8.2) L Albumin 1.3 G/DL (3.4-5.0) L Globulin 2.7 g/dL Albumin/Globulin Ratio 0.5 (1.0-2.7) L Plan Problems: (1) Cirrhosis (2) Varices, esophageal (3) GI bleed Assessment & Plan: 69F with acute GI bleed. etiology likely prior varices anemia on admission and transfused extubated and improving downgraded comfortable EGD noted okay for diet iv fluids PPI prognosis still guarded d/c planning will follow with recs thank you (4) Acute GI bleeding Zaid Wong Jul 07, 2019 17:58
--- NOTE | 2019-07-07 19:09 | General Progress Note ---
Assessment/Plan Status: stable, unchanged Status Narrative poor prognosis Assessment/Plan: 69-year-old female with past medical history of liver cirrhosis without known etiology presents for hematemesis #Hypovolemic/ septic shock secondary to hematemesis- resolved off pressors, PNA , C diff -s/p PRBC, platelet transfusion on admission- Hemoglobin stable -GI consult, appreciate recs: EGD 06/29/2019, esophageal varices x7 banding. Blood in abdomen. A limited however no active bleeding noted -Continue to monitor Hb. PRBC if < 7 or if acute bleed with Hb < 8 -Surgery consult, appreciate recs -Cardiology consult, appreciate recs -Echo: ef wnl #Intubation for airway protection and encephalopathy, extubated 07/03 -Pulmonology consult, appreciate recs #Worsening leukocytosis, continue to monitor POSITIVE C. difficile. Started on flagyl 07/01 and ID consultation appreciated. Antibiotics adjusted as needed. Now on PO Vancomycin #Urinary retention -Straight cath with 500 cc -Continue Rouse for now due to poor mobility and she will need VOIDING TRIAL. -Monitor ins and outs -UA negative #Liver cirrhosis with esophageal varices -Status post EGD as above -Ascites present, continue Rocephin, Flagyl -Protonix 40 mg IV twice daily. Famotidine added by GI -Octreotide drip, for 72 hours -Monitor CBC and BMP -Patient denies alcohol use, family states reason for liver cirrhosis is unknown. Differentials include Saunders versus autoimmune causes -Autoimmune work-up, can be deferred -Hepatitis panel pending -Right upper quadrant ultrasound: Reviewed -Continue lactulose -CEA normal #Hepatic encephalopathy -Continue lactulose as per above #Elevated troponin, likely secondary to demand ischemia -Cardiology consulted, appreciate recs -Echo: Within normal limits -Troponins downtrended. #Lactic acidosis, improving -Secondary to #1 # Physical deconditioning - PT evaluation -Advance diet # Disposition - PT evaluation recommends SNF and skilled therapy. - CM consult placed today. -poor prognosis -Dc planning Time of this not may not reflect time of encounter. I spent 40 minutes during this encounter, 50 percent spent on counselling and care coordination Subjective Date patient seen: Jul 07, 2019 Constitutional: Reports: no symptoms, chills, diaphoresis, fever, malaise, weakness, other HEENT: Denies: no symptoms, eye pain, blurred vision, tearing, double vision, ear pain, ear discharge, nose pain, nose congestion, throat pain, throat swelling, mouth pain, mouth swelling, other Cardiovascular: Denies: no symptoms, chest pain, edema, irregular heart rate, lightheadedness, palpitations, syncope, other Respiratory: Denies: no symptoms, cough, orthopnea, shortness of breath, SOB with excertion, SOB at rest, sputum, stridor, wheezing, other Gastrointestinal/Abdominal: Reports: no symptoms, abdomen distended, abdominal pain, black stools, tarry stools, blood in stool, constipated, diarrhea, difficulty swallowing, nausea, poor appetite, poor fluid intake, rectal bleeding , vomiting, other Neurologic/Psychiatric: Denies: no symptoms, anxiety, depressed, emotional problems, headache, numbness, paresthesia, pre-existing deficit, seizure, tingling, tremors, weakness, other Endocrine: Denies: no symptoms, excessive sweating, flushing, intolerance to cold, intolerance to heat, increased hunger, increased thirst, increased urine, unexplained weight gain, unexplained weight loss, other Allergies: Coded Allergies: No Known Allergies (Unverified , 06/27/19) Objective Last 24 Hour Vital Signs Date Time Temp Pulse Resp B/P (MAP) Pulse Ox O2 Delivery O2 Flow Rate FiO2 07/07/19 16:00 99 07/07/19 16:00 97.5 102 19 116/75 (89) 98 07/07/19 12:00 97.2 96 20 115/68 (84) 98 07/07/19 12:00 93 07/07/19 09:00 Nasal Cannula 2.0 07/07/19 08:00 97 07/07/19 08:00 97.4 100 20 123/75 (91) 95 07/07/19 04:00 97 07/07/19 04:00 97.5 98 20 111/65 (80) 95 07/07/19 00:00 97.7 98 18 128/71 (90) 95 07/07/19 00:00 97 07/06/19 21:00 Room Air 07/06/19 20:00 97 07/06/19 20:00 97.3 101 18 134/95 (108) 98 Intake and Output 07/06/19 07/07/19 19:00 07:00 Intake Total 240 ml Output Total 350 ml 400 ml Balance -110 ml -400 ml Intake Oral 240 ml Output Urine Total 350 ml 400 ml # Bowel Movements 2 3 Laboratory Tests 07/07/19 06:15: White Blood Count 13.1H, Red Blood Count 2.77L, Hemoglobin 8.7L, Hematocrit 25.9L, Mean Corpuscular Volume 93, Mean Corpuscular Hemoglobin 31.5H, Mean Corpuscular Hemoglobin Concent 33.7, Red Cell Distribution Width 16.9H, Platelet Count 48L, Mean Platelet Volume 7.4, Neutrophils (%) (Auto) , Lymphocytes (%) (Auto) , Monocytes (%) (Auto) , Eosinophils (%) (Auto) , Basophils (%) (Auto) , Differential Total Cells Counted 100, Neutrophils % ( Manual) 95H, Lymphocytes % (Manual) 2L, Monocytes % (Manual) 1, Eosinophils % ( Manual) 2, Basophils % (Manual) 0, Band Neutrophils 0, Platelet Estimate DecreasedL, Platelet Morphology Normal, Polychromasia 1+, Hypochromasia 1+, Anisocytosis 1+, Sodium Level 138, Potassium Level 3.6, Chloride Level 111H, Carbon Dioxide Level 19L, Anion Gap 8, Blood Urea Nitrogen 19H, Creatinine 0.6, Estimat Glomerular Filtration Rate > 60, Glucose Level 153H, Calcium Level 6.9L , Ferritin 307, Total Bilirubin 5.7H, Direct Bilirubin 4.1H, Aspartate Amino Transf (AST/SGOT) 47H, Alanine Aminotransferase (ALT/SGPT) 121H, Alkaline Phosphatase 126H, Total Protein 4.0L, Albumin 1.3L, Globulin 2.7, Albumin/ Globulin Ratio 0.5L Height (Feet): 5 Height (Inches): 2.00 Weight (Pounds): 144 Objective General Appearance: moderate distress EENT: PERRL/EOMI Neck: non-tender, normal alignment Cardiovascular: normal rate, regular rhythm Respiratory/Chest: lungs clear, normal breath sounds Abdomen: non tender, soft Neurologic: technical systems architect II-XII grossly normal Skin: normal pigmentation Sen Foley M.D. Jul 07, 2019 19:09
--- NOTE | 2019-07-07 19:15 | NUR ---
HAND-OFF: Report given to Minda/ROMAIN Bazzi. Patient's in stable condition. Plan of care endorsed.
--- NOTE | 2019-07-07 19:16 | NUR ---
NURSE NOTES: Received patient awake, lying in semi cox's; resting comfortably. A/O x 2. Primarily Vietnamese speaking. Denies pain at this time. No signs of acute cardiorespiratory distress noted. Checked PICC line at right upper arm intact and patent. No erythema, bleeding or infiltration noted. With jackson catheter draining well to gravity. Bed at lowest position, brakes on, siderails x 3. Comfort care provided. Will continue to monitor. Addendum: 07/07/19 at 2135 by Rose Mary Olson RN NURSE NOTES: Call light within reach.
[2019-07-07 20:00] VITALS: BP 122/79
[2019-07-07] MEDS: Dyna-Hex 2% Top Sol 2oz TOPIC SCH (20:50)
[2019-07-08] VITALS: BP 125/70
[2019-07-08 04:00] VITALS: BP 114/73
--- NOTE | 2019-07-08 05:26 | NUR ---
NURSE NOTES: Safety maintained throughout the night. No significant change of condition noted. Will continue to monitor.
[2019-07-08] MEDS: Vancomycin oral 125mg/2.5ml ORAL SCH ×3 (05:49→17:24)
[2019-07-08 05:50] LABS: HEMATOCRIT 29.5 % (37.0-47.0); HEMOGLOBIN 9.8 G/DL (12.0-16.0); MEAN CORPUSCULAR VOLUME 93 FL (80-99); PLATELET COUNT 72 K/UL (150-450); RED BLOOD COUNT 3.18 M/UL (4.20-5.40); RED CELL DISTRIBUTION WIDTH 16.9 % (11.6-14.8); WHITE BLOOD COUNT 16.5 K/UL (4.8-10.8)
[2019-07-08] MEDS: NovoLOG Insulin Flexpen SUBQ SCH ×4 (05:50→21:27)
[2019-07-08 06:09] LABS: ALANINE AMINOTRANSFERASE 113 U/L (12-78); ALBUMIN 1.4 G/DL (3.4-5.0); ALBUMIN/GLOBULIN RATIO 0.4 (1.0-2.7); ALKALINE PHOSPHATASE 144 U/L (46-116); ANION GAP 6 mmol/L (5-15); ASPARTATE AMINO TRANSFERASE 55 U/L (15-37); BILIRUBIN,TOTAL 7.6 MG/DL (0.2-1.0); BLOOD UREA NITROGEN 20 mg/dL (7-18); CALCIUM 7.5 MG/DL (8.5-10.1); CARBON DIOXIDE 22 MMOL/L (21-32); CHLORIDE 109 MMOL/L (98-107); CREATININE 0.6 MG/DL (0.55-1.30); POTASSIUM 4.1 MMOL/L (3.5-5.1); SODIUM 137 MMOL/L (136-145)
[2019-07-08 06:12] LABS: BILIRUBIN,DIRECT 5.5 MG/DL (0.0-0.3)
--- NOTE | 2019-07-08 07:20 | NUR ---
HAND-OFF: Report given to ROMAIN Murguia. Plan of care endorsed.
--- NOTE | 2019-07-08 07:30 | NUR ---
NURSE NOTES: Received patient from [facility]. Patient is AAO x2 sitting up to eat breakfast. Primarily Syriac speaking. Denies pain at this time. No signs of acute cardiorespiratory distress noted. Patient breathing even and unlabored with 2L NC. Checked PICC line at right upper arm intact and patent. No erythema, bleeding or infiltration noted. With jackson catheter draining well to gravity. Bed at lowest position, brakes on, side rails x 3. Will continue to monitor.
--- NOTE | 2019-07-08 07:32 | General Progress Note ---
Assessment/Plan Status: stable, unchanged Assessment/Plan: Problems: (1) Acute GI bleeding ICD Codes: K92.2 - Gastrointestinal hemorrhage, unspecified SNOMED: 39653870 (2) GI bleed ICD Codes: K92.2 - Gastrointestinal hemorrhage, unspecified SNOMED: 63754173 (3) Varices, esophageal ICD Codes: I85.00 - Esophageal varices without bleeding SNOMED: 35740153 (4) Cirrhosis ICD Codes: K74.60 - Unspecified cirrhosis of liver SNOMED: 25584844 Status: stable Assessment/Plan Assessment - Cirrhosis - UGIB due to esophageal varicies s/p banding - C Diff, on IV flagyl (no oral access for PO vanco at this time) - Resp failure - anemia - lactic acidosis - leukocytosis - guarded - s/p paracentesis Recommendations - serial CBC - transfuse PRN to keep Hg > 7 - on diet - H2B - off octreotide - IV abx - follow labs Subjective Allergies: Coded Allergies: No Known Allergies (Unverified , 06/27/19) Objective Last 24 Hour Vital Signs Date Time Temp Pulse Resp B/P (MAP) Pulse Ox O2 Delivery O2 Flow Rate FiO2 07/08/19 04:00 98.1 103 16 114/73 (87) 97 07/08/19 04:00 102 07/08/19 00:00 103 07/08/19 00:00 97.3 102 16 125/70 (88) 97 07/07/19 21:00 Nasal Cannula 2.0 07/07/19 20:00 98.1 103 16 122/79 (93) 97 07/07/19 20:00 105 07/07/19 16:00 99 07/07/19 16:00 97.5 102 19 116/75 (89) 98 07/07/19 12:00 97.2 96 20 115/68 (84) 98 07/07/19 12:00 93 07/07/19 09:00 Nasal Cannula 2.0 07/07/19 08:00 97 07/07/19 08:00 97.4 100 20 123/75 (91) 95 Intake and Output 07/07/19 07/08/19 19:00 07:00 Intake Total 120 ml 600 ml Output Total 200 ml 300 ml Balance -80 ml 300 ml Intake Oral 120 ml IV Total 600 ml Output Urine Total 200 ml 300 ml Laboratory Tests 07/08/19 04:40: White Blood Count 16.5H, Red Blood Count 3.18L, Hemoglobin 9.8L, Hematocrit 29.5L, Mean Corpuscular Volume 93, Mean Corpuscular Hemoglobin 30.9, Mean Corpuscular Hemoglobin Concent 33.3, Red Cell Distribution Width 16.9H, Platelet Count 72L, Mean Platelet Volume 6.9, Neutrophils (%) (Auto) , Lymphocytes (%) (Auto) , Monocytes (%) (Auto) , Eosinophils (%) (Auto) , Basophils (%) (Auto) , Neutrophils % (Manual) [Pending], Lymphocytes % (Manual) [Pending], Platelet Estimate [Pending], Platelet Morphology [Pending], Sodium Level 137, Potassium Level 4.1, Chloride Level 109H, Carbon Dioxide Level 22, Anion Gap 6, Blood Urea Nitrogen 20H, Creatinine 0.6, Estimat Glomerular Filtration Rate > 60, Glucose Level 103, Calcium Level 7.5L, Total Bilirubin 7.6H, Direct Bilirubin 5.5H, Aspartate Amino Transf (AST/SGOT) 55H, Alanine Aminotransferase (ALT/SGPT) 113H, Alkaline Phosphatase 144H, Total Protein 4.6L , Albumin 1.4L, Globulin 3.2, Albumin/Globulin Ratio 0.4L Height (Feet): 5 Height (Inches): 2.00 Weight (Pounds): 156 General Appearance: no apparent distress EENT: normal ENT inspection, scleral icterus Neck: supple Cardiovascular: normal rate Respiratory/Chest: decreased breath sounds Abdomen: normal bowel sounds, non tender, soft Extremities: non-tender Mina Garcia MD Jul 08, 2019 07:32
[2019-07-08 08:00] VITALS: BP 123/76
[2019-07-08] MEDS: cefTRIAXone 1 GM in NS 55 ML IVPB SCH (08:32)
--- NOTE | 2019-07-08 09:31 | Pulmonology Progress Note ---
Assessment/Plan Assessment/Plan IMPRESSION: 1. Respiratory failure. Resolved. Extubated 07/03/19 2. Upper GI bleed, likely gastric varices. S/p EGD 3. Diabetes mellitus. 4. Anemia. Hgb stable 5. Thrombocytopenia; 6. Likely hepatic encephalopathy; continue lactulose; has C diff + DISCUSSION: Low flow O2 Continue lactulose Abx for C diff Slowly improving Has worsening leucocytosis; ID following James Zeng M.D. Subjective Interval Events: No fever; has worsening leucocytosis Constitutional: Reports: no symptoms HEENT: Repors: no symptoms Respiratory: Reports: no symptoms Cardiovascular: Reports: no symptoms Gastrointestinal/Abdominal: Reports: no symptoms Allergies: Coded Allergies: No Known Allergies (Unverified , 06/27/19) Objective Last 24 Hour Vital Signs Date Time Temp Pulse Resp B/P (MAP) Pulse Ox O2 Delivery O2 Flow Rate FiO2 07/08/19 09:00 Nasal Cannula 2.0 07/08/19 08:00 97.6 110 16 123/76 (92) 96 07/08/19 04:00 98.1 103 16 114/73 (87) 97 07/08/19 04:00 102 07/08/19 00:00 103 07/08/19 00:00 97.3 102 16 125/70 (88) 97 07/07/19 21:00 Nasal Cannula 2.0 07/07/19 20:00 98.1 103 16 122/79 (93) 97 07/07/19 20:00 105 07/07/19 16:00 99 07/07/19 16:00 97.5 102 19 116/75 (89) 98 07/07/19 12:00 97.2 96 20 115/68 (84) 98 07/07/19 12:00 93 Intake and Output 07/07/19 07/08/19 19:00 07:00 Intake Total 120 ml 600 ml Output Total 200 ml 300 ml Balance -80 ml 300 ml Intake Oral 120 ml IV Total 600 ml Output Urine Total 200 ml 300 ml General Appearance: no acute distress HEENT: normocephalic Respiratory/Chest: chest wall non-tender, lungs clear Cardiovascular: normal peripheral pulses Laboratory Tests 07/08/19 04:40: White Blood Count 16.5H, Red Blood Count 3.18L, Hemoglobin 9.8L, Hematocrit 29.5L, Mean Corpuscular Volume 93, Mean Corpuscular Hemoglobin 30.9, Mean Corpuscular Hemoglobin Concent 33.3, Red Cell Distribution Width 16.9H, Platelet Count 72L, Mean Platelet Volume 6.9, Neutrophils (%) (Auto) , Lymphocytes (%) (Auto) , Monocytes (%) (Auto) , Eosinophils (%) (Auto) , Basophils (%) (Auto) , Differential Total Cells Counted 100, Neutrophils % ( Manual) 93H, Lymphocytes % (Manual) 2L, Monocytes % (Manual) 3, Eosinophils % ( Manual) 2, Basophils % (Manual) 0, Band Neutrophils 0, Platelet Estimate DecreasedL, Platelet Morphology Normal, Polychromasia 1+, Hypochromasia 1+, Anisocytosis 1+, Sodium Level 137, Potassium Level 4.1, Chloride Level 109H, Carbon Dioxide Level 22, Anion Gap 6, Blood Urea Nitrogen 20H, Creatinine 0.6, Estimat Glomerular Filtration Rate > 60, Glucose Level 103, Calcium Level 7.5L, Total Bilirubin 7.6H, Direct Bilirubin 5.5H, Aspartate Amino Transf (AST/SGOT) 55H, Alanine Aminotransferase (ALT/SGPT) 113H, Alkaline Phosphatase 144H, Total Protein 4.6L, Albumin 1.4L, Globulin 3.2, Albumin/Globulin Ratio 0.4L 07/08/19 07:22: Vancomycin Level Trough [Pending] Current Medications Medications (Trade) Dose Ordered Sig/Naseem Route PRN Reason Start Time Stop Time Status Last Admin Dose Admin Ceftriaxone Sodium 1 gm/ Sodium Chloride 55 ml @ 110 mls/hr DAILY IVPB 07/08/19 09:00 07/12/19 08:59 07/08/19 08:32 Chlorhexidine Gluconate (Mer-Hex 2%) 1 applic DAILY@1999 TOPIC 07/04/19 20:00 08/01/19 19:59 07/07/19 20:50 Dextrose (Dextrose 50%) 25 ml Q30M PRN IV Hypoglycemia 07/04/19 16:00 07/28/19 04:59 Dextrose (Dextrose 50%) 50 ml Q30M PRN IV Hypoglycemia 07/04/19 16:00 07/28/19 04:59 Famotidine (Pepcid I.v.) 20 mg Q12HR IVP 07/04/19 21:00 08/01/19 20:59 07/08/19 08:31 Insulin Aspart (NovoLOG) BEFORE MEALS AND HS SUBQ 07/04/19 16:30 07/28/19 06:29 07/07/19 20:55 Metronidazole 100 ml @ 100 mls/hr Q8HR IVPB 07/07/19 14:00 07/13/19 13:59 07/08/19 05:50 Morphine Sulfate (Morphine Sulfate) 2 mg Q4H PRN IVP For Pain 07/04/19 15:43 07/11/19 15:42 Ondansetron HCl (Zofran) 4 mg Q6H PRN IVP Nausea & Vomiting 07/04/19 15:43 08/03/19 15:42 Sodium Chloride 1,000 ml @ 50 mls/hr Q20H IV 07/04/19 15:42 08/03/19 15:41 07/07/19 23:07 Vancomycin HCl (Firvanq) 125 mg Q6HR ORAL 07/04/19 18:00 07/11/19 17:59 07/08/19 05:49 Vancomycin HCl (Vanco rx to dose) 1 ea DAILY PRN MISC Per rx protocol 07/05/19 09:00 08/01/19 12:29 Vancomycin HCl 750 mg/Sodium Chloride 275 ml @ 183.333 mls/hr Q24H IVPB 07/07/19 14:00 07/12/19 13:59 07/07/19 14:19 James Zeng MD Jul 08, 2019 09:31
[2019-07-08] MEDS ORDERED: NS 275ml ONE (10:20)
[2019-07-08] MEDS ORDERED: 1/2 NS 1000ml IV ONE (10:20)
--- NOTE | 2019-07-08 11:50 | Surgery Progress Note ---
Surgery Progress Note Subjective Additional Comments Worsening leukocytosis. Anemia. Worsening liver enzymes. Overall decompensated. Ill-appearing with poor prognosis. C. difficile on Flagyl Worsening cirrhosis Objective Last 24 Hour Vital Signs Date Time Temp Pulse Resp B/P (MAP) Pulse Ox O2 Delivery O2 Flow Rate FiO2 07/08/19 09:00 Nasal Cannula 2.0 07/08/19 08:00 97.6 110 16 123/76 (92) 96 07/08/19 07:50 103 07/08/19 04:00 98.1 103 16 114/73 (87) 97 07/08/19 04:00 102 07/08/19 00:00 103 07/08/19 00:00 97.3 102 16 125/70 (88) 97 07/07/19 21:00 Nasal Cannula 2.0 07/07/19 20:00 98.1 103 16 122/79 (93) 97 07/07/19 20:00 105 07/07/19 16:00 99 07/07/19 16:00 97.5 102 19 116/75 (89) 98 07/07/19 12:00 97.2 96 20 115/68 (84) 98 07/07/19 12:00 93 I&O Intake and Output 07/07/19 07/08/19 19:00 07:00 Intake Total 120 ml 600 ml Output Total 200 ml 300 ml Balance -80 ml 300 ml Intake Oral 120 ml IV Total 600 ml Output Urine Total 200 ml 300 ml Dressing: other Wound: other Drains: other Cardiovascular: RSR Respiratory: decreased breath sounds Abdomen: soft, distended, other, decreased bowel sounds Extremities: no cyanosis Laboratory Tests Test 07/08/19 04:40 07/08/19 07:22 White Blood Count 16.5 K/UL (4.8-10.8) H Red Blood Count 3.18 M/UL (4.20-5.40) L Hemoglobin 9.8 G/DL (12.0-16.0) L Hematocrit 29.5 % (37.0-47.0) L Mean Corpuscular Volume 93 FL (80-99) Mean Corpuscular Hemoglobin 30.9 PG (27.0-31.0) Mean Corpuscular Hemoglobin Concent 33.3 G/DL (32.0-36.0) Red Cell Distribution Width 16.9 % (11.6-14.8) H Platelet Count 72 K/UL (150-450) L Mean Platelet Volume 6.9 FL (6.5-10.1) Neutrophils (%) (Auto) % (45.0-75.0) Lymphocytes (%) (Auto) % (20.0-45.0) Monocytes (%) (Auto) % (1.0-10.0) Eosinophils (%) (Auto) % (0.0-3.0) Basophils (%) (Auto) % (0.0-2.0) Differential Total Cells Counted 100 Neutrophils % (Manual) 93 % (45-75) H Lymphocytes % (Manual) 2 % (20-45) L Monocytes % (Manual) 3 % (1-10) Eosinophils % (Manual) 2 % (0-3) Basophils % (Manual) 0 % (0-2) Band Neutrophils 0 % (0-8) Platelet Estimate Decreased L Platelet Morphology Normal Polychromasia 1+ Hypochromasia 1+ Anisocytosis 1+ Sodium Level 137 MMOL/L (136-145) Potassium Level 4.1 MMOL/L (3.5-5.1) Chloride Level 109 MMOL/L (98-107) H Carbon Dioxide Level 22 MMOL/L (21-32) Anion Gap 6 mmol/L (5-15) Blood Urea Nitrogen 20 mg/dL (7-18) H Creatinine 0.6 MG/DL (0.55-1.30) Estimat Glomerular Filtration Rate > 60 mL/min (>60) Glucose Level 103 MG/DL (74-106) Calcium Level 7.5 MG/DL (8.5-10.1) L Total Bilirubin 7.6 MG/DL (0.2-1.0) H Direct Bilirubin 5.5 MG/DL (0.0-0.3) H Aspartate Amino Transf (AST/SGOT) 55 U/L (15-37) H Alanine Aminotransferase (ALT/SGPT) 113 U/L (12-78) H Alkaline Phosphatase 144 U/L (46-116) H Total Protein 4.6 G/DL (6.4-8.2) L Albumin 1.4 G/DL (3.4-5.0) L Globulin 3.2 g/dL Albumin/Globulin Ratio 0.4 (1.0-2.7) L Vancomycin Level Trough 7.7 ug/mL (5.0-12.0) Plan Problems: (1) Cirrhosis (2) Varices, esophageal (3) GI bleed Assessment & Plan: 69F with acute GI bleed. etiology likely prior varices anemia on admission and transfused extubated and improving downgraded comfortable EGD noted okay for diet iv fluids PPI prognosis still guarded d/c planning will follow with recs thank you (4) Acute GI bleeding Additional Comments Continue antibiotics Monitor diarrhea and fluid status Zaid oWng Jul 08, 2019 11:50
[2019-07-08 12:00] VITALS: BP 121/78
[2019-07-08] MEDS: Vancomycin 750 MG in NS 275 ML IVPB SCH (14:46)
[2019-07-08] MEDS ORDERED: Tubing IV Secondary IV ONE (15:04)
--- NOTE | 2019-07-08 15:34 | General Progress Note ---
Assessment/Plan Status: deteriorating - overall worsening liver enzymes and wbc trending up Assessment/Plan: 69-year-old female with past medical history of liver cirrhosis without known etiology presents for hematemesis- overall worsening #Hypovolemic/ septic shock secondary to hematemesis- resolved off pressors, PNA , C diff -s/p PRBC, platelet transfusion on admission- Hemoglobin stable -GI consult, appreciate recs: EGD 06/29/2019, esophageal varices x7 banding. Blood in abdomen. A limited however no active bleeding noted -Continue to monitor Hb. PRBC if < 7 or if acute bleed with Hb < 8 -Surgery consult, appreciate recs -Cardiology consult, appreciate recs -Echo: ef wnl -prognosis guarded #Intubation for airway protection and encephalopathy, extubated 07/03 -Pulmonology consult, appreciate recs #Worsening leukocytosis, continue to monitor POSITIVE C. difficile. Started on flagyl 07/01 and ID consultation appreciated. Antibiotics adjusted as needed. Now on PO Vancomycin as well #Urinary retention -Straight cath with 500 cc -Continue Rouse for now due to poor mobility and she will need VOIDING TRIAL. -Monitor ins and outs -UA negative #Liver cirrhosis with esophageal varices -Status post EGD as above -Ascites present, continue Rocephin, Flagyl -Protonix 40 mg IV twice daily. Famotidine added by GI -s/p Octreotide drip -Monitor CBC and BMP -Patient denies alcohol use, family states reason for liver cirrhosis is unknown. Differentials include Saunders versus autoimmune causes -Autoimmune work-up, can be deferred -Hepatitis panel -Right upper quadrant ultrasound: Reviewed -Continue lactulose -CEA normal prognosis guarded #Hepatic encephalopathy -Continue lactulose as per above #Elevated troponin, likely secondary to demand ischemia -Cardiology consulted, appreciate recs -Echo: Within normal limits -Troponins downtrended. #Lactic acidosis, improved # Physical deconditioning - PT evaluation -Advance diet # Disposition - PT evaluation recommends SNF and skilled therapy. - CM consult placed today. -poor prognosis Time of this not may not reflect time of encounter. I spent 40 minutes during this encounter, 50 percent spent on counselling and care coordination Subjective Date patient seen: Jul 08, 2019 ROS Limited/Unobtainable: No Constitutional: Reports: malaise, weakness HEENT: Denies: no symptoms, eye pain, blurred vision, tearing, double vision, ear pain, ear discharge, nose pain, nose congestion, throat pain, throat swelling, mouth pain, mouth swelling, other Cardiovascular: Denies: no symptoms, chest pain, edema, irregular heart rate, lightheadedness, palpitations, syncope, other Respiratory: Denies: no symptoms, cough, orthopnea, shortness of breath, SOB with excertion, SOB at rest, sputum, stridor, wheezing, other Gastrointestinal/Abdominal: Reports: no symptoms, abdomen distended, abdominal pain, black stools, tarry stools, blood in stool, constipated, diarrhea, difficulty swallowing, nausea, poor appetite, poor fluid intake, rectal bleeding , vomiting, other Allergies: Coded Allergies: No Known Allergies (Unverified , 06/27/19) All Systems: reviewed and negative except above Subjective seen at bedside, seems comfortable. however worsening LFTs and wbc trending up Objective Last 24 Hour Vital Signs Date Time Temp Pulse Resp B/P (MAP) Pulse Ox O2 Delivery O2 Flow Rate FiO2 07/08/19 12:00 97.9 104 19 121/78 (92) 96 07/08/19 11:44 102 07/08/19 09:00 Nasal Cannula 2.0 07/08/19 08:00 97.6 110 16 123/76 (92) 96 07/08/19 07:50 103 07/08/19 04:00 98.1 103 16 114/73 (87) 97 07/08/19 04:00 102 07/08/19 00:00 103 07/08/19 00:00 97.3 102 16 125/70 (88) 97 07/07/19 21:00 Nasal Cannula 2.0 07/07/19 20:00 98.1 103 16 122/79 (93) 97 07/07/19 20:00 105 07/07/19 16:00 99 07/07/19 16:00 97.5 102 19 116/75 (89) 98 Intake and Output 07/07/19 07/08/19 18:59 06:59 Intake Total 120 ml 600 ml Output Total 200 ml 300 ml Balance -80 ml 300 ml Intake Oral 120 ml IV Total 600 ml Output Urine Total 200 ml 300 ml Laboratory Tests 07/08/19 04:40: White Blood Count 16.5H, Red Blood Count 3.18L, Hemoglobin 9.8L, Hematocrit 29.5L, Mean Corpuscular Volume 93, Mean Corpuscular Hemoglobin 30.9, Mean Corpuscular Hemoglobin Concent 33.3, Red Cell Distribution Width 16.9H, Platelet Count 72L, Mean Platelet Volume 6.9, Neutrophils (%) (Auto) , Lymphocytes (%) (Auto) , Monocytes (%) (Auto) , Eosinophils (%) (Auto) , Basophils (%) (Auto) , Differential Total Cells Counted 100, Neutrophils % ( Manual) 93H, Lymphocytes % (Manual) 2L, Monocytes % (Manual) 3, Eosinophils % ( Manual) 2, Basophils % (Manual) 0, Band Neutrophils 0, Platelet Estimate DecreasedL, Platelet Morphology Normal, Polychromasia 1+, Hypochromasia 1+, Anisocytosis 1+, Sodium Level 137, Potassium Level 4.1, Chloride Level 109H, Carbon Dioxide Level 22, Anion Gap 6, Blood Urea Nitrogen 20H, Creatinine 0.6, Estimat Glomerular Filtration Rate > 60, Glucose Level 103, Calcium Level 7.5L, Total Bilirubin 7.6H, Direct Bilirubin 5.5H, Aspartate Amino Transf (AST/SGOT) 55H, Alanine Aminotransferase (ALT/SGPT) 113H, Alkaline Phosphatase 144H, Total Protein 4.6L, Albumin 1.4L, Globulin 3.2, Albumin/Globulin Ratio 0.4L 07/08/19 07:22: Vancomycin Level Trough 7.7 07/08/19 14:00: Vancomycin Level Trough 6.6 Height (Feet): 5 Height (Inches): 2.00 Weight (Pounds): 156 General Appearance: no apparent distress EENT: PERRL/EOMI Neck: supple Cardiovascular: normal rate, regular rhythm Respiratory/Chest: lungs clear Abdomen: soft, distended, other - + ascites Extremities: non-tender, other - + edema Edema: 2+ Leg (R), 2+ Pedal (L) 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 Jul 08, 2019 15:34
[2019-07-08 16:00] VITALS: BP 124/79
--- NOTE | 2019-07-08 16:36 | NUR ---
HAND-OFF: Report given to ROMAIN Guerrero. In addition, spoke with Dr. Foley about labs concerning bilirubin and 16.3 WBC. Will see the patient and possibly endorsed orders to nurse.
--- NOTE | 2019-07-08 19:04 | NUR ---
HAND-OFF: Report given to Minda HOYOS. Pt remains stable.
--- NOTE | 2019-07-08 19:49 | NUR ---
HAND-OFF: Report given to ROMAIN Carson. Patient is awake lying semi-cox's; resting comfortably. Family member at bedside. In stable condition.
[2019-07-08 20:00] VITALS: BP 117/67
--- NOTE | 2019-07-08 20:10 | NUR ---
NURSE NOTES: Received patient from Minda HOYOS, patient in stable condition, no distress, AOx2, VSS, O2@2L n/c, PICC line on R upper arm , double lumen, asymptomatic, patent, intact, F/C draining to gravity, denies pain at this time, bed low&locked, side rails upx3, call light within reach , family at bedside, will continue to monitor and reassess.
[2019-07-08] MEDS: Dyna-Hex 2% Top Sol 2oz TOPIC SCH (20:29)
--- NOTE | 2019-07-08 21:58 | Cardiology Progress Note ---
Assessment/Plan Status: stable Assessment/Plan Assessment/Plan Status: stable Assessment/Plan: Problems: (1) Varices, esophageal (2) Cirrhosis (3) GI bleed (4) Acute GI bleeding (5) Elevated troponin (6) Diastolic dysfunction PLAN: Trend Troponin/EKG - likely demand ischemia from anemia/emesis Transfuse >7 Echo reviewed, normal LV function Stress test when stable Subjective Cardiovascular: Reports: no symptoms Respiratory: Reports: no symptoms Gastrointestinal/Abdominal: Reports: no symptoms Genitourinary: Reports: no symptoms Subjective Heart rate improved, BP stable, no fevers, WBC remains elevated, AAox2 no distress, extubated Objective Last 24 Hour Vital Signs Date Time Temp Pulse Resp B/P (MAP) Pulse Ox O2 Delivery O2 Flow Rate FiO2 07/08/19 16:00 97.8 82 19 124/79 (94) 98 07/08/19 15:43 107 07/08/19 12:00 97.9 104 19 121/78 (92) 96 07/08/19 11:44 102 07/08/19 09:00 Nasal Cannula 2.0 07/08/19 08:00 97.6 110 16 123/76 (92) 96 07/08/19 07:50 103 07/08/19 04:00 98.1 103 16 114/73 (87) 97 07/08/19 04:00 102 07/08/19 00:00 103 07/08/19 00:00 97.3 102 16 125/70 (88) 97 General Appearance: no apparent distress, alert EENT: PERRL/EOMI, normal ENT inspection, TMs normal, pharynx normal Neck: non-tender, normal alignment, supple, normal inspection, no JVD Rhythm: NSR Cardiovascular: normal peripheral pulses, normal rate, regular rhythm Respiratory/Chest: chest wall non-tender, accessory muscle use, crackles/rales Abdomen: normal bowel sounds, soft, no mass Extremities: normal range of motion, non-tender, normal inspection Neurologic: bottom buffer II-XII grossly normal, no motor/sensory deficits Intake and Output 07/07/19 07/08/19 19:00 07:00 Intake Total 120 ml 600 ml Output Total 200 ml 300 ml Balance -80 ml 300 ml Intake Oral 120 ml IV Total 600 ml Output Urine Total 200 ml 300 ml Laboratory Tests Test 07/08/19 04:40 07/08/19 07:22 07/08/19 14:00 White Blood Count 16.5 K/UL (4.8-10.8) H Red Blood Count 3.18 M/UL (4.20-5.40) L Hemoglobin 9.8 G/DL (12.0-16.0) L Hematocrit 29.5 % (37.0-47.0) L Mean Corpuscular Volume 93 FL (80-99) Mean Corpuscular Hemoglobin 30.9 PG (27.0-31.0) Mean Corpuscular Hemoglobin Concent 33.3 G/DL (32.0-36.0) Red Cell Distribution Width 16.9 % (11.6-14.8) H Platelet Count 72 K/UL (150-450) L Mean Platelet Volume 6.9 FL (6.5-10.1) Neutrophils (%) (Auto) % (45.0-75.0) Lymphocytes (%) (Auto) % (20.0-45.0) Monocytes (%) (Auto) % (1.0-10.0) Eosinophils (%) (Auto) % (0.0-3.0) Basophils (%) (Auto) % (0.0-2.0) Differential Total Cells Counted 100 Neutrophils % (Manual) 93 % (45-75) H Lymphocytes % (Manual) 2 % (20-45) L Monocytes % (Manual) 3 % (1-10) Eosinophils % (Manual) 2 % (0-3) Basophils % (Manual) 0 % (0-2) Band Neutrophils 0 % (0-8) Platelet Estimate Decreased L Platelet Morphology Normal Polychromasia 1+ Hypochromasia 1+ Anisocytosis 1+ Sodium Level 137 MMOL/L (136-145) Potassium Level 4.1 MMOL/L (3.5-5.1) Chloride Level 109 MMOL/L (98-107) H Carbon Dioxide Level 22 MMOL/L (21-32) Anion Gap 6 mmol/L (5-15) Blood Urea Nitrogen 20 mg/dL (7-18) H Creatinine 0.6 MG/DL (0.55-1.30) Estimat Glomerular Filtration Rate > 60 mL/min (>60) Glucose Level 103 MG/DL (74-106) Calcium Level 7.5 MG/DL (8.5-10.1) L Total Bilirubin 7.6 MG/DL (0.2-1.0) H Direct Bilirubin 5.5 MG/DL (0.0-0.3) H Aspartate Amino Transf (AST/SGOT) 55 U/L (15-37) H Alanine Aminotransferase (ALT/SGPT) 113 U/L (12-78) H Alkaline Phosphatase 144 U/L (46-116) H Total Protein 4.6 G/DL (6.4-8.2) L Albumin 1.4 G/DL (3.4-5.0) L Globulin 3.2 g/dL Albumin/Globulin Ratio 0.4 (1.0-2.7) L Vancomycin Level Trough 7.7 ug/mL (5.0-12.0) 6.6 ug/mL (5.0-12.0) Winston De La Torre MD Jul 08, 2019 21:58
[2019-07-09] VITALS: BP 110/70
[2019-07-09] MEDS: Vancomycin oral 125mg/2.5ml ORAL SCH ×4 (00:19→17:21)
[2019-07-09] MEDS: Vancomycin 750 MG in NS 275 ML IVPB SCH ×2 (02:03→14:39)
[2019-07-09 04:00] VITALS: BP 123/71
[2019-07-09] MEDS: NovoLOG Insulin Flexpen SUBQ SCH ×4 (06:30→21:26)
--- NOTE | 2019-07-09 07:15 | NUR ---
HAND-OFF: Report given to Murguia RN, patient in stable condition, plan of care endorsed.
--- NOTE | 2019-07-09 07:15 | NUR ---
NURSE NOTES: Received patient from ROMAIN Solano. Patient is AOx2. Patient is on lunchroom monitor. O2@2L n/c, PICC line on R upper arm , double lumen, asymptomatic, patent, intact, F/C draining to gravity, denies pain at this time, bed low&locked, side rails upx3, call light within reach. Will continue to monitor and reassess.
--- NOTE | 2019-07-09 07:30 | Pulmonology Progress Note ---
Assessment/Plan Assessment/Plan IMPRESSION: 1. Respiratory failure. Resolved. Extubated 07/03/19 2. Upper GI bleed, likely gastric varices. S/p EGD 3. Diabetes mellitus. 4. Anemia. Hgb stable 5. Thrombocytopenia; 6. Likely hepatic encephalopathy; continue lactulose; has C diff + DISCUSSION: Low flow O2 Continue lactulose Abx for C diff Slowly improving Has worsening leucocytosis; ID following James Zeng M.D. Subjective Interval Events: None new Constitutional: Reports: no symptoms HEENT: Repors: no symptoms Respiratory: Reports: no symptoms Cardiovascular: Reports: no symptoms Gastrointestinal/Abdominal: Reports: no symptoms Allergies: Coded Allergies: No Known Allergies (Unverified , 06/27/19) Objective Last 24 Hour Vital Signs Date Time Temp Pulse Resp B/P (MAP) Pulse Ox O2 Delivery O2 Flow Rate FiO2 07/09/19 04:00 97.3 99 18 123/71 (88) 97 07/09/19 04:00 97 07/09/19 00:00 104 07/09/19 00:00 97.9 104 18 110/70 (83) 95 07/08/19 21:00 Nasal Cannula 2.0 07/08/19 20:00 97.7 107 18 117/67 (84) 95 07/08/19 20:00 107 07/08/19 16:00 97.8 82 19 124/79 (94) 98 07/08/19 15:43 107 07/08/19 12:00 97.9 104 19 121/78 (92) 96 07/08/19 11:44 102 07/08/19 09:00 Nasal Cannula 2.0 07/08/19 08:00 97.6 110 16 123/76 (92) 96 07/08/19 07:50 103 Intake and Output 07/08/19 07/09/19 19:00 07:00 Intake Total 550 ml Output Total 300 ml 400 ml Balance 250 ml -400 ml IV Total 350 ml Other 200 ml Output Urine Total 300 ml 400 ml # Bowel Movements 1 General Appearance: no acute distress HEENT: normocephalic Respiratory/Chest: chest wall non-tender, lungs clear Cardiovascular: normal peripheral pulses Abdomen: normal bowel sounds Microbiology Date/Time Source Procedure Growth Status 07/08/19 08:34 Sputum Gram Stain - Final Resulted 07/08/19 08:34 Sputum Culture - Preliminary Gram Negative Claus Resulted Laboratory Tests 07/08/19 14:00: Vancomycin Level Trough 6.6 07/09/19 06:20: White Blood Count [Pending], Red Blood Count [Pending], Hemoglobin [Pending], Hematocrit [Pending], Mean Corpuscular Volume [Pending], Mean Corpuscular Hemoglobin [Pending], Mean Corpuscular Hemoglobin Concent [Pending], Red Cell Distribution Width [Pending], Platelet Count [Pending], Mean Platelet Volume [ Pending], Neutrophils (%) (Auto) [Pending], Lymphocytes (%) (Auto) [Pending], Monocytes (%) (Auto) [Pending], Eosinophils (%) (Auto) [Pending], Basophils (%) (Auto) [Pending], Sodium Level [Pending], Potassium Level [Pending], Chloride Level [Pending], Carbon Dioxide Level [Pending], Blood Urea Nitrogen [Pending], Creatinine [Pending], Estimat Glomerular Filtration Rate [Pending], Glucose Level [Pending], Calcium Level [Pending], Total Bilirubin [Pending], Aspartate Amino Transf (AST/SGOT) [Pending], Alanine Aminotransferase (ALT/SGPT) [Pending] , Alkaline Phosphatase [Pending], Total Protein [Pending], Albumin [Pending], Globulin [Pending] Current Medications Medications (Trade) Dose Ordered Sig/Naseem Route PRN Reason Start Time Stop Time Status Last Admin Dose Admin Ceftriaxone Sodium 1 gm/ Sodium Chloride 55 ml @ 110 mls/hr DAILY IVPB 07/08/19 09:00 07/12/19 08:59 07/08/19 08:32 Chlorhexidine Gluconate (Mer-Hex 2%) 1 applic DAILY@1999 TOPIC 07/04/19 20:00 08/01/19 19:59 07/08/19 20:29 Dextrose (Dextrose 50%) 25 ml Q30M PRN IV Hypoglycemia 07/04/19 16:00 07/28/19 04:59 Dextrose (Dextrose 50%) 50 ml Q30M PRN IV Hypoglycemia 07/04/19 16:00 07/28/19 04:59 Famotidine (Pepcid I.v.) 20 mg Q12HR IVP 07/04/19 21:00 08/01/19 20:59 07/08/19 20:29 Insulin Aspart (NovoLOG) BEFORE MEALS AND HS SUBQ 07/04/19 16:30 07/28/19 06:29 07/08/19 21:27 Metronidazole 100 ml @ 100 mls/hr Q8HR IVPB 07/07/19 14:00 07/13/19 13:59 07/09/19 06:14 Morphine Sulfate (Morphine Sulfate) 2 mg Q4H PRN IVP For Pain 07/04/19 15:43 07/11/19 15:42 Ondansetron HCl (Zofran) 4 mg Q6H PRN IVP Nausea & Vomiting 07/04/19 15:43 08/03/19 15:42 Sodium Chloride 1,000 ml @ 50 mls/hr Q20H IV 07/04/19 15:42 08/03/19 15:41 07/08/19 20:29 Vancomycin HCl (Firvanq) 125 mg Q6HR ORAL 07/04/19 18:00 07/11/19 17:59 07/09/19 06:15 Vancomycin HCl (Vanco rx to dose) 1 ea DAILY PRN MISC Per rx protocol 07/05/19 09:00 08/01/19 12:29 Vancomycin HCl 750 mg/Sodium Chloride 275 ml @ 183.333 mls/hr Q12H IVPB 07/08/19 14:00 07/13/19 13:59 07/09/19 02:03 James Zeng MD Jul 09, 2019 07:30
[2019-07-09 07:32] LABS: HEMATOCRIT 27.7 % (37.0-47.0); HEMOGLOBIN 9.8 G/DL (12.0-16.0); MEAN CORPUSCULAR VOLUME 89 FL (80-99); PLATELET COUNT 67 K/UL (150-450); RED CELL DISTRIBUTION WIDTH 17.9 % (11.6-14.8); WHITE BLOOD COUNT 16.6 K/UL (4.8-10.8)
[2019-07-09 08:00] VITALS: BP 107/71
[2019-07-09 08:09] LABS: ALANINE AMINOTRANSFERASE 96 U/L (12-78); ALBUMIN 1.4 G/DL (3.4-5.0); ALBUMIN/GLOBULIN RATIO 0.4 (1.0-2.7); ALKALINE PHOSPHATASE 150 U/L (46-116); ANION GAP 9 mmol/L (5-15); ASPARTATE AMINO TRANSFERASE 63 U/L (15-37); BILIRUBIN,TOTAL 9.5 MG/DL (0.2-1.0); BLOOD UREA NITROGEN 23 mg/dL (7-18); CALCIUM 7.9 MG/DL (8.5-10.1); CARBON DIOXIDE 20 MMOL/L (21-32); CHLORIDE 109 MMOL/L (98-107); CREATININE 0.7 MG/DL (0.55-1.30); POTASSIUM 4.3 MMOL/L (3.5-5.1); SODIUM 138 MMOL/L (136-145)
[2019-07-09 08:14] LABS: BILIRUBIN,DIRECT 7.1 MG/DL (0.0-0.3)
[2019-07-09] MEDS: cefTRIAXone 1 GM in NS 55 ML IVPB SCH (08:20)
--- NOTE | 2019-07-09 08:44 | General Progress Note ---
Assessment/Plan Status: deteriorating Assessment/Plan: 69-year-old female with past medical history of liver cirrhosis without known etiology presents for hematemesis- overall worsening #Hypovolemic/ septic shock secondary to hematemesis- resolved off pressors, PNA , C diff -s/p PRBC, platelet transfusion on admission- Hemoglobin stable -GI consult, appreciate recs: EGD 06/29/2019, esophageal varices x7 banding. Blood in abdomen. A limited however no active bleeding noted -Continue to monitor Hb. PRBC if < 7 or if acute bleed with Hb < 8 -Surgery consult, appreciate recs -Cardiology consult, appreciate recs -Echo: ef wnl -prognosis guarded #Liver cirrhosis with esophageal varices MELD 19 -Status post EGD as above -PPI -s/p Octreotide drip -Monitor CBC and BMP -Patient denies alcohol use, family states reason for liver cirrhosis is unknown. Differentials include Saunders versus autoimmune causes. Hepatitis panel negative, LYRIC, anti-mitochondrial and F-actin igG negative. Acetaminophen level 3, -Right upper quadrant ultrasound: Reviewed, no gallstones -Continue lactulose -CEA normal -prognosis guarded, worsening bilirubin. worsening leukocytosis. Approaching fulminant liver failure. Needs transplant. Case discussed with GI RECORDING ENGINEER Jarvis Whitfield #Hepatic encephalopathy -Continue lactulose as per above #Intubation for airway protection and encephalopathy, extubated 07/03 -Pulmonology consult, appreciate recs #Worsening leukocytosis, continue to monitor POSITIVE C. difficile. Started on flagyl 07/01 and ID consultation appreciated. Antibiotics adjusted as needed. Now on PO Vancomycin as well. place don cefepime by ID to cover gram negative in sputum. f/u sensitivities. #Urinary retention -Continue Rouse for now due to poor mobility -Monitor ins and outs -UA negative #Elevated troponin, likely secondary to demand ischemia -Cardiology consulted, appreciate recs -Echo: Within normal limits -Troponins downtrended. #Lactic acidosis, improved # Physical deconditioning - PT evaluation -Advance diet # Disposition - PT evaluation recommends SNF and skilled therapy. - CM consult -poor prognosis -code status: full code for now, I discussed with daughter patient's condition today. She expressed to me patient would not want to be heavily resuscitated and rather peacefully. Provided family with MOLST from to discuss and make decisions. Time of this not may not reflect time of encounter. I spent 40 minutes during this encounter, 50 percent spent on counselling and care coordination Subjective Date patient seen: Jul 09, 2019 ROS Limited/Unobtainable: No Constitutional: Reports: malaise, weakness HEENT: Reports: other; Denies: no symptoms, eye pain, blurred vision, tearing, double vision, ear pain, ear discharge, nose pain, nose congestion, throat pain , throat swelling, mouth pain, mouth swelling Cardiovascular: Denies: no symptoms, chest pain, edema, irregular heart rate, lightheadedness, palpitations, syncope, other Respiratory: Denies: no symptoms, cough, orthopnea, shortness of breath, SOB with excertion, SOB at rest, sputum, stridor, wheezing, other Gastrointestinal/Abdominal: Reports: abdomen distended, other - weeping abdominal wound Genitourinary: Denies: no symptoms, burning, discharge, frequency, flank pain, hematuria, incontinence, pain, urgency, other Allergies: Coded Allergies: No Known Allergies (Unverified , 06/27/19) All Systems: reviewed and negative except above Subjective seen at bedside, seems comfortable. Daughter at bedside. Explained to her that wbc is worsening Liver function tests and rising wbc Objective Last 24 Hour Vital Signs Date Time Temp Pulse Resp B/P (MAP) Pulse Ox O2 Delivery O2 Flow Rate FiO2 07/09/19 04:00 97.3 99 18 123/71 (88) 97 07/09/19 04:00 97 07/09/19 00:00 104 07/09/19 00:00 97.9 104 18 110/70 (83) 95 07/08/19 21:00 Nasal Cannula 2.0 07/08/19 20:00 97.7 107 18 117/67 (84) 95 07/08/19 20:00 107 07/08/19 16:00 97.8 82 19 124/79 (94) 98 07/08/19 15:43 107 07/08/19 12:00 97.9 104 19 121/78 (92) 96 07/08/19 11:44 102 07/08/19 09:00 Nasal Cannula 2.0 Intake and Output 07/08/19 07/09/19 19:00 07:00 Intake Total 550 ml Output Total 300 ml 400 ml Balance 250 ml -400 ml IV Total 350 ml Other 200 ml Output Urine Total 300 ml 400 ml # Bowel Movements 1 Laboratory Tests 07/08/19 14:00: Vancomycin Level Trough 6.6 07/09/19 06:20: White Blood Count 16.6H, Red Blood Count 3.10L, Hemoglobin 9.8L, Hematocrit 27.7L, Mean Corpuscular Volume 89, Mean Corpuscular Hemoglobin 31.7H, Mean Corpuscular Hemoglobin Concent 35.4, Red Cell Distribution Width 17.9H, Platelet Count 67L, Mean Platelet Volume 6.2L, Neutrophils (%) (Auto) , Lymphocytes (%) (Auto) , Monocytes (%) (Auto) , Eosinophils (%) (Auto) , Basophils (%) (Auto) , Differential Total Cells Counted 100, Neutrophils % ( Manual) 92H, Lymphocytes % (Manual) 4L, Monocytes % (Manual) 3, Eosinophils % ( Manual) 1, Basophils % (Manual) 0, Band Neutrophils 0, Platelet Estimate DecreasedL, Platelet Morphology Normal, Polychromasia 1+, Hypochromasia 1+, Anisocytosis 1+, Sodium Level 138, Potassium Level 4.3, Chloride Level 109H, Carbon Dioxide Level 20L, Anion Gap 9, Blood Urea Nitrogen 23H, Creatinine 0.7, Estimat Glomerular Filtration Rate > 60, Glucose Level 83, Calcium Level 7.9L, Total Bilirubin 9.5H, Direct Bilirubin 7.1H, Aspartate Amino Transf (AST/SGOT) 63H, Alanine Aminotransferase (ALT/SGPT) 96H, Alkaline Phosphatase 150H, Total Protein 4.8L, Albumin 1.4L, Globulin 3.4, Albumin/Globulin Ratio 0.4L Height (Feet): 5 Height (Inches): 2.00 Weight (Pounds): 157 Objective General Appearance: no distress EENT: PERRL/EOMI, +jaundice Neck: non-tender, normal alignment Cardiovascular: normal rate, regular rhythm Respiratory/Chest: lungs clear, normal breath sounds Abdomen: non tender, soft, distended, + ascites, weeping 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 Jul 09, 2019 08:44
--- NOTE | 2019-07-09 10:19 | GI Progress Note ---
Assessment/Plan Problems: (1) Acute GI bleeding ICD Codes: K92.2 - Gastrointestinal hemorrhage, unspecified SNOMED: 30267253 (2) GI bleed ICD Codes: K92.2 - Gastrointestinal hemorrhage, unspecified SNOMED: 68399567 (3) Varices, esophageal ICD Codes: I85.00 - Esophageal varices without bleeding SNOMED: 98998668 (4) Cirrhosis ICD Codes: K74.60 - Unspecified cirrhosis of liver SNOMED: 02118764 Status: not improved, unchanged Status Narrative Discussed with Dr. Garcia. Assessment/Plan Assessment - Cirrhosis, rising bili - UGIB due to esophageal varicies s/p banding - C Diff, on IV flagyl (no oral access for PO vanco at this time) - Resp failure - anemia - lactic acidosis - leukocytosis - guarded - s/p paracentesis - MELD score 19 Recommendations - serial CBC - transfuse PRN to keep Hg > 7 - on diet - H2B - off octreotide - IV abx - follow labs The patient was seen and examined at bedside and all new and available data was reviewed in the patients chart. I agree with the above findings, impression and plan. (Patient seen earlier today. Signature stamp does not reflect patient encounter time.). - Mina Garcia MD Subjective Subjective limited Objective Last 24 Hour Vital Signs Date Time Temp Pulse Resp B/P (MAP) Pulse Ox O2 Delivery O2 Flow Rate FiO2 07/09/19 08:00 97.5 99 22 107/71 (83) 97 07/09/19 07:41 102 07/09/19 04:00 97.3 99 18 123/71 (88) 97 07/09/19 04:00 97 07/09/19 00:00 104 07/09/19 00:00 97.9 104 18 110/70 (83) 95 07/08/19 21:00 Nasal Cannula 2.0 07/08/19 20:00 97.7 107 18 117/67 (84) 95 07/08/19 20:00 107 07/08/19 16:00 97.8 82 19 124/79 (94) 98 07/08/19 15:43 107 07/08/19 12:00 97.9 104 19 121/78 (92) 96 07/08/19 11:44 102 Intake and Output 07/08/19 07/09/19 19:00 07:00 Intake Total 550 ml Output Total 300 ml 400 ml Balance 250 ml -400 ml IV Total 350 ml Other 200 ml Output Urine Total 300 ml 400 ml # Bowel Movements 1 Laboratory Tests Test 07/08/19 14:00 07/09/19 06:20 Vancomycin Level Trough 6.6 ug/mL (5.0-12.0) White Blood Count 16.6 K/UL (4.8-10.8) H Red Blood Count 3.10 M/UL (4.20-5.40) L Hemoglobin 9.8 G/DL (12.0-16.0) L Hematocrit 27.7 % (37.0-47.0) L Mean Corpuscular Volume 89 FL (80-99) Mean Corpuscular Hemoglobin 31.7 PG (27.0-31.0) H Mean Corpuscular Hemoglobin Concent 35.4 G/DL (32.0-36.0) Red Cell Distribution Width 17.9 % (11.6-14.8) H Platelet Count 67 K/UL (150-450) L Mean Platelet Volume 6.2 FL (6.5-10.1) L Neutrophils (%) (Auto) % (45.0-75.0) Lymphocytes (%) (Auto) % (20.0-45.0) Monocytes (%) (Auto) % (1.0-10.0) Eosinophils (%) (Auto) % (0.0-3.0) Basophils (%) (Auto) % (0.0-2.0) Differential Total Cells Counted 100 Neutrophils % (Manual) 92 % (45-75) H Lymphocytes % (Manual) 4 % (20-45) L Monocytes % (Manual) 3 % (1-10) Eosinophils % (Manual) 1 % (0-3) Basophils % (Manual) 0 % (0-2) Band Neutrophils 0 % (0-8) Platelet Estimate Decreased L Platelet Morphology Normal Polychromasia 1+ Hypochromasia 1+ Anisocytosis 1+ Sodium Level 138 MMOL/L (136-145) Potassium Level 4.3 MMOL/L (3.5-5.1) Chloride Level 109 MMOL/L (98-107) H Carbon Dioxide Level 20 MMOL/L (21-32) L Anion Gap 9 mmol/L (5-15) Blood Urea Nitrogen 23 mg/dL (7-18) H Creatinine 0.7 MG/DL (0.55-1.30) Estimat Glomerular Filtration Rate > 60 mL/min (>60) Glucose Level 83 MG/DL (74-106) Calcium Level 7.9 MG/DL (8.5-10.1) L Total Bilirubin 9.5 MG/DL (0.2-1.0) H Direct Bilirubin 7.1 MG/DL (0.0-0.3) H Aspartate Amino Transf (AST/SGOT) 63 U/L (15-37) H Alanine Aminotransferase (ALT/SGPT) 96 U/L (12-78) H Alkaline Phosphatase 150 U/L (46-116) H Total Protein 4.8 G/DL (6.4-8.2) L Albumin 1.4 G/DL (3.4-5.0) L Globulin 3.4 g/dL Albumin/Globulin Ratio 0.4 (1.0-2.7) L Height (Feet): 5 Height (Inches): 2.00 Weight (Pounds): 157 General Appearance: WD/WN, no apparent distress, alert Cardiovascular: normal rate Respiratory/Chest: normal breath sounds, no respiratory distress Abdominal Exam: normal bowel sounds, non tender, soft Extremities: non-tender Luisana Walker NP Jul 09, 2019 10:19
[2019-07-09 12:00] VITALS: BP 125/73
--- NOTE | 2019-07-09 13:54 | Surgery Progress Note ---
Surgery Progress Note Subjective Additional Comments no acute events labs noted exam unchanged. Objective Last 24 Hour Vital Signs Date Time Temp Pulse Resp B/P (MAP) Pulse Ox O2 Delivery O2 Flow Rate FiO2 07/09/19 09:00 Nasal Cannula 2.0 07/09/19 08:00 97.5 99 22 107/71 (83) 97 07/09/19 07:41 102 07/09/19 04:00 97.3 99 18 123/71 (88) 97 07/09/19 04:00 97 07/09/19 00:00 104 07/09/19 00:00 97.9 104 18 110/70 (83) 95 07/08/19 21:00 Nasal Cannula 2.0 07/08/19 20:00 97.7 107 18 117/67 (84) 95 07/08/19 20:00 107 07/08/19 16:00 97.8 82 19 124/79 (94) 98 07/08/19 15:43 107 I&O Intake and Output 07/08/19 07/09/19 19:00 07:00 Intake Total 550 ml Output Total 300 ml 400 ml Balance 250 ml -400 ml IV Total 350 ml Other 200 ml Output Urine Total 300 ml 400 ml # Bowel Movements 1 Dressing: other Wound: other Drains: other Cardiovascular: RSR Respiratory: decreased breath sounds Abdomen: soft, distended, other Extremities: no cyanosis, other Laboratory Tests Test 07/08/19 14:00 07/09/19 06:20 Vancomycin Level Trough 6.6 ug/mL (5.0-12.0) White Blood Count 16.6 K/UL (4.8-10.8) H Red Blood Count 3.10 M/UL (4.20-5.40) L Hemoglobin 9.8 G/DL (12.0-16.0) L Hematocrit 27.7 % (37.0-47.0) L Mean Corpuscular Volume 89 FL (80-99) Mean Corpuscular Hemoglobin 31.7 PG (27.0-31.0) H Mean Corpuscular Hemoglobin Concent 35.4 G/DL (32.0-36.0) Red Cell Distribution Width 17.9 % (11.6-14.8) H Platelet Count 67 K/UL (150-450) L Mean Platelet Volume 6.2 FL (6.5-10.1) L Neutrophils (%) (Auto) % (45.0-75.0) Lymphocytes (%) (Auto) % (20.0-45.0) Monocytes (%) (Auto) % (1.0-10.0) Eosinophils (%) (Auto) % (0.0-3.0) Basophils (%) (Auto) % (0.0-2.0) Differential Total Cells Counted 100 Neutrophils % (Manual) 92 % (45-75) H Lymphocytes % (Manual) 4 % (20-45) L Monocytes % (Manual) 3 % (1-10) Eosinophils % (Manual) 1 % (0-3) Basophils % (Manual) 0 % (0-2) Band Neutrophils 0 % (0-8) Platelet Estimate Decreased L Platelet Morphology Normal Polychromasia 1+ Hypochromasia 1+ Anisocytosis 1+ Sodium Level 138 MMOL/L (136-145) Potassium Level 4.3 MMOL/L (3.5-5.1) Chloride Level 109 MMOL/L (98-107) H Carbon Dioxide Level 20 MMOL/L (21-32) L Anion Gap 9 mmol/L (5-15) Blood Urea Nitrogen 23 mg/dL (7-18) H Creatinine 0.7 MG/DL (0.55-1.30) Estimat Glomerular Filtration Rate > 60 mL/min (>60) Glucose Level 83 MG/DL (74-106) Calcium Level 7.9 MG/DL (8.5-10.1) L Total Bilirubin 9.5 MG/DL (0.2-1.0) H Direct Bilirubin 7.1 MG/DL (0.0-0.3) H Aspartate Amino Transf (AST/SGOT) 63 U/L (15-37) H Alanine Aminotransferase (ALT/SGPT) 96 U/L (12-78) H Alkaline Phosphatase 150 U/L (46-116) H Total Protein 4.8 G/DL (6.4-8.2) L Albumin 1.4 G/DL (3.4-5.0) L Globulin 3.4 g/dL Albumin/Globulin Ratio 0.4 (1.0-2.7) L Plan Problems: (1) Cirrhosis (2) Varices, esophageal (3) GI bleed Assessment & Plan: 69F with acute GI bleed. etiology likely prior varices anemia on admission and transfused extubated and improving downgraded comfortable EGD noted okay for diet iv fluids PPI prognosis still guarded d/c planning will follow with recs thank you (4) Acute GI bleeding Zaid Wong Jul 09, 2019 13:54
--- NOTE | 2019-07-09 15:20 | Infectious Diseases Prog Note ---
Assessment/Plan Assessment/Plan ASSESSMENT AND PLAN: 1. gram neg pna, mrsa pna, sepsis, shock, c.diff. +, leukocytosis, fevers, respiratory failure, ? sbp - vancomycin, cefepime, flagyl, po vancomycin - f/u on sputum culture for ID of gram neg, f/u cultures, labs, chest x-ray - supportive are, paracentesis as indicated 2. GI bleed. 3. Anemia. 4. H. pylori infection. 5. Diabetes. 6. Esophageal varices. 7. Respiratory failure. 8. Anemia and thrombocytopenia. 9. Liver cirrhosis. 10. Continue treatment per primary consultants. 11. No known drug allergies. 12. Social history is negative. 13. Family history is noncontributory. 14. MAR was noted. 15. Case was discussed with RN. 16. Case was discussed with Dr. Hunter 17. mrsa colonization Subjective Constitutional: Reports: fatigue; Denies: fever HEENT: Reports: congestion - mild Respiratory: Reports: shortness of breath - mild Gastrointestinal/Abdominal: Reports: diarrhea; Denies: nausea, vomiting Genitourinary: Reports: other - + follow Neurologic: Denies: headache Psychiatric: Denies: depression Skin: Denies: rash Hematologic: Denies: bleeding Musculoskeletal: Denies: pain Allergies: Coded Allergies: No Known Allergies (Unverified , 06/27/19) Objective Vital Signs Last 24 Hour Vital Signs Date Time Temp Pulse Resp B/P (MAP) Pulse Ox O2 Delivery O2 Flow Rate FiO2 07/09/19 12:00 97.0 96 22 125/73 (90) 97 07/09/19 09:00 Nasal Cannula 2.0 07/09/19 08:00 97.5 99 22 107/71 (83) 97 07/09/19 07:41 102 07/09/19 04:00 97.3 99 18 123/71 (88) 97 07/09/19 04:00 97 07/09/19 00:00 104 07/09/19 00:00 97.9 104 18 110/70 (83) 95 07/08/19 21:00 Nasal Cannula 2.0 07/08/19 20:00 97.7 107 18 117/67 (84) 95 07/08/19 20:00 107 07/08/19 16:00 97.8 82 19 124/79 (94) 98 07/08/19 15:43 107 Height (Feet): 5 Height (Inches): 2.00 Weight (Pounds): 157 General Appearance: no acute distress HEENT: normocephalic, atraumatic, anicteric, mucous membranes moist Respiratory/Chest: crackles/rales, rhonchi - bilaterally Cardiovascular: normal rate, regular rhythm, no gallop/murmur, no JVD Abdomen: distended, other - non-tender but distended Genitourinary: other - + jackson - urine slt cloudy Extremities: no cyanosis Skin: no rash Neurologic/Psychiatric: 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 Endotracheal tube has been pulled back and is now 2 cm above the halima in good position. 2. Improved lung volumes. Mild increased vascular interstitial prominence. Abdominal US: Impression: Evidence of hepatic cirrhosis, with coarsened hepatic echogenicity and surface nodularity Evidence of portal hypertension, with ascites, hepatic hilar varices, and abnormal portal venous flow No gallstones. Gallbladder wall is markedly thickened. This is probably edema due to the hepatic abnormalities. Acalculous acute cholecystitis or cholecystitis secondary to occult stone disease excludable, and hepatobiliary nuclear scan could be considered if there is high clinical suspicion Left renal cyst Node inability to visualize the pancreas and portions of the abdominal aorta Chest x-ray - 07/03/19 - Impression: New/increased bilateral basilar atelectatic changes and possible right basilar consolidation, over 3 days Other findings as noted 07/07/19 - chest x-ray - IMPRESSION: 1. Interval removal of endotracheal tube. 2. Right-sided PICC with the catheter tip in the region of the right atrium. 3. Cardiomegaly. 4. Low lung volumes, which may be related to shallow inspiration. 5. Subsegmental atelectasis versus infiltrates in bilateral lung bases, unchanged. Microbiology Date/Time Source Procedure Growth Status 06/29/19 17:15 Blood Blood Culture - Final NO GROWTH AFTER 5 DAYS Complete 07/08/19 08:34 Sputum Gram Stain - Final Resulted 07/08/19 08:34 Sputum Culture - Preliminary Gram Negative Claus Resulted 06/30/19 14:50 Stool Clostridium difficile Toxin Assay - Final Complete 07/03/19 14:15 Abdominal Fluid Gram Stain - Final Complete 07/03/19 14:15 Abdominal Fluid Body Fluid Culture - Final NO GROWTH Complete Microbiology Date/Time Source Procedure Growth Status 07/08/19 08:34 Sputum Gram Stain - Final Resulted 07/08/19 08:34 Sputum Culture - Preliminary Gram Negative Claus Resulted Laboratory Tests Test 07/09/19 06:20 White Blood Count 16.6 K/UL (4.8-10.8) H Red Blood Count 3.10 M/UL (4.20-5.40) L Hemoglobin 9.8 G/DL (12.0-16.0) L Hematocrit 27.7 % (37.0-47.0) L Mean Corpuscular Volume 89 FL (80-99) Mean Corpuscular Hemoglobin 31.7 PG (27.0-31.0) H Mean Corpuscular Hemoglobin Concent 35.4 G/DL (32.0-36.0) Red Cell Distribution Width 17.9 % (11.6-14.8) H Platelet Count 67 K/UL (150-450) L Mean Platelet Volume 6.2 FL (6.5-10.1) L Neutrophils (%) (Auto) % (45.0-75.0) Lymphocytes (%) (Auto) % (20.0-45.0) Monocytes (%) (Auto) % (1.0-10.0) Eosinophils (%) (Auto) % (0.0-3.0) Basophils (%) (Auto) % (0.0-2.0) Differential Total Cells Counted 100 Neutrophils % (Manual) 92 % (45-75) H Lymphocytes % (Manual) 4 % (20-45) L Monocytes % (Manual) 3 % (1-10) Eosinophils % (Manual) 1 % (0-3) Basophils % (Manual) 0 % (0-2) Band Neutrophils 0 % (0-8) Platelet Estimate Decreased L Platelet Morphology Normal Polychromasia 1+ Hypochromasia 1+ Anisocytosis 1+ Sodium Level 138 MMOL/L (136-145) Potassium Level 4.3 MMOL/L (3.5-5.1) Chloride Level 109 MMOL/L (98-107) H Carbon Dioxide Level 20 MMOL/L (21-32) L Anion Gap 9 mmol/L (5-15) Blood Urea Nitrogen 23 mg/dL (7-18) H Creatinine 0.7 MG/DL (0.55-1.30) Estimat Glomerular Filtration Rate > 60 mL/min (>60) Glucose Level 83 MG/DL (74-106) Calcium Level 7.9 MG/DL (8.5-10.1) L Total Bilirubin 9.5 MG/DL (0.2-1.0) H Direct Bilirubin 7.1 MG/DL (0.0-0.3) H Aspartate Amino Transf (AST/SGOT) 63 U/L (15-37) H Alanine Aminotransferase (ALT/SGPT) 96 U/L (12-78) H Alkaline Phosphatase 150 U/L (46-116) H Total Protein 4.8 G/DL (6.4-8.2) L Albumin 1.4 G/DL (3.4-5.0) L Globulin 3.4 g/dL Albumin/Globulin Ratio 0.4 (1.0-2.7) L Current Medications Medications (Trade) Dose Ordered Sig/Naseem Route PRN Reason Start Time Stop Time Status Last Admin Dose Admin Ceftriaxone Sodium 1 gm/ Sodium Chloride 55 ml @ 110 mls/hr DAILY IVPB 07/08/19 09:00 07/12/19 08:59 07/09/19 08:20 Chlorhexidine Gluconate (Mer-Hex 2%) 1 applic DAILY@2000 TOPIC 07/04/19 20:00 08/01/19 19:59 07/08/19 20:29 Dextrose (Dextrose 50%) 25 ml Q30M PRN IV Hypoglycemia 07/04/19 16:00 07/28/19 04:59 Dextrose (Dextrose 50%) 50 ml Q30M PRN IV Hypoglycemia 07/04/19 16:00 07/28/19 04:59 Famotidine (Pepcid I.v.) 20 mg Q12HR IVP 07/04/19 21:00 08/01/19 20:59 07/09/19 08:20 Insulin Aspart (NovoLOG) BEFORE MEALS AND HS SUBQ 07/04/19 16:30 07/28/19 06:29 07/09/19 12:01 Metronidazole 100 ml @ 100 mls/hr Q8HR IVPB 07/07/19 14:00 07/13/19 13:59 07/09/19 14:38 Morphine Sulfate (Morphine Sulfate) 2 mg Q4H PRN IVP For Pain 07/04/19 15:43 07/11/19 15:42 Ondansetron HCl (Zofran) 4 mg Q6H PRN IVP Nausea & Vomiting 07/04/19 15:43 08/03/19 15:42 Sodium Chloride 1,000 ml @ 50 mls/hr Q20H IV 07/04/19 15:42 08/03/19 15:41 07/08/19 20:29 Vancomycin HCl (Firvanq) 125 mg Q6HR ORAL 07/04/19 18:00 07/11/19 17:59 07/09/19 12:05 Vancomycin HCl (Vanco rx to dose) 1 ea DAILY PRN MISC Per rx protocol 07/05/19 09:00 08/01/19 12:29 Vancomycin HCl 750 mg/Sodium Chloride 275 ml @ 183.333 mls/hr Q12H IVPB 07/08/19 14:00 07/13/19 13:59 07/09/19 14:39 Jay Hurtado MD Jul 09, 2019 15:20
[2019-07-09 16:00] VITALS: BP 117/72
[2019-07-09] MEDS: Cefepime HCl 2 GM in D5W 55 ML IVPB SCH (17:21)
--- NOTE | 2019-07-09 19:15 | NUR ---
NURSE NOTES: Received report from ROMAIN Murguia, patient in stable condition, AOx1, denies pain at this time, PICC line on right upper arm, asymptomatic, intact, patent, f/c draining to gravity, patent, bed lowest position, side rails upx3, call light within reach. Family at bed side, participating in patient care and aware of cdiff isolation precaution.Will continue to monitor and reassess.
--- NOTE | 2019-07-09 19:17 | Hematology/Onc Progress Note ---
Assessment/Plan Assessment/Plan Assessment and Recs: # Anemia of GI bleed -- patient presents with occult+ bleeding, anemia panel reviewed iron stores are moderate but given 4 units prbc, can be falsely moderate, recheck in several days, anemia is due to variceal bleed --> as per GI eval, may need endoscopy-> s/p egd with variceal banding prior --> has been started on ppi --> cea has been ordered - normal --> Hgb goal >7. Transfuse prn. --> (s/p 4 units prbc) --> Iron x 1 dose has been orderd --> Medications have been reviewed --> continue ppi and octreotide prn per gi --> hgb trend 8.8-->8.8-->8.2-->7.2->9.6-->9.1-->8.8-->8.7-?9 # Thrombocytopenia - potential causes multifactorial, evaluate liver and viral etiologies to begin, also could be related to underlying medications patient has received. In this case is due to etoh abuse, esoph varices and cirrhosis is noted, also potential c.diff infection --> Hep panel pending and HIV negative --> US abd does show cirrhosis --> Peripheral smear ordered to evaluate for blasts /schistocytes does not show any --> abx and other meds have been reviewed --> ok for ppx if plt >50k w/ either heparin or lovenox --> Transfuse if Plt < 20k and fever, or if Plt < 10k without fever --> plt count 90k-->46k-->63k-->68k-->52k-->48k --> EGD per gi --> s/p plt transfusion on 06/29 # Leukocytosis rule out infection --> on abx, continue per id # Varices, esophageal --> potential rupture as per gi recs --> off octreotide # Cirrhosis --> with hepatic enceph --> gi recs prn # Resp failure --> was intubated --> now extubated on ra # Hypokalemia with dec K --> given IV k as per pcp The timing of this note does not necessarily reflect the time of the patient was seen. GREATLY APPRECIATE CONSULTATION. Subjective HEENT: Denies: no symptoms, eye pain, blurred vision, tearing, double vision, ear pain, ear discharge, nose pain, nose congestion, throat pain, throat swelling, mouth pain, mouth swelling, other Cardiovascular: Denies: no symptoms, chest pain, edema, irregular heart rate, lightheadedness, palpitations, syncope, other Genitourinary: Denies: no symptoms, burning, discharge, frequency, flank pain, hematuria, incontinence, pain, urgency, other Neurologic/Psychiatric: Denies: no symptoms, anxiety, depressed, emotional problems, headache, numbness, paresthesia, pre-existing deficit, seizure, tingling, tremors, weakness, other Endocrine: Denies: no symptoms, excessive sweating, flushing, intolerance to cold, intolerance to heat, increased hunger, increased thirst, increased urine, unexplained weight gain, unexplained weight loss, other Allergies: Coded Allergies: No Known Allergies (Unverified , 06/27/19) Subjective 06/29: icu, s/p egd and plt tx, levo gtt 07/01: remains on vent, ivelisse Montero rn, with c. diff + and on abx, holding off weaning 07/02: remains on vent, c.diff abx, weaning tolerated well, no changed, ivelisse rn 07/03: no bleeding no chills no night sweats reported 07/04: seen and ivelisse gage in the am, now downgraded out of icu 07/05: eating breakfast with desk pen set assembler, no f/c, no night sweats 07/06: no f/c, vs stable, denies pain, on abx, labs noted 07/07: labs reviewed, plt slightly lower, on abx for c.diff 07/09: no fevers, no chulls, labs reviewed, on abx Objective Objective Current Medications Medications (Trade) Dose Ordered Sig/[place]seem Route PRN Reason Start Time Stop Time Status Last Admin Dose Admin Cefepime HCl 2 gm/ Dextrose 55 ml @ 110 mls/hr EVERY 12 HOURS IVPB 07/09/19 17:00 07/16/19 16:59 07/09/19 17:21 Chlorhexidine Gluconate (Mer-Hex 2%) 1 applic DAILY@1999 TOPIC 07/04/19 20:00 08/01/19 19:59 07/08/19 20:29 Dextrose (Dextrose 50%) 25 ml Q30M PRN IV Hypoglycemia 07/04/19 16:00 07/28/19 04:59 Dextrose (Dextrose 50%) 50 ml Q30M PRN IV Hypoglycemia 07/04/19 16:00 07/28/19 04:59 Famotidine (Pepcid I.v.) 20 mg Q12HR IVP 07/04/19 21:00 08/01/19 20:59 07/09/19 08:20 Insulin Aspart (NovoLOG) BEFORE MEALS AND HS SUBQ 07/04/19 16:30 07/28/19 06:29 07/09/19 12:01 Metronidazole 100 ml @ 100 mls/hr Q8HR IVPB 07/07/19 14:00 07/13/19 13:59 07/09/19 14:38 Morphine Sulfate (Morphine Sulfate) 2 mg Q4H PRN IVP For Pain 07/04/19 15:43 07/11/19 15:42 Ondansetron HCl (Zofran) 4 mg Q6H PRN IVP Nausea & Vomiting 07/04/19 15:43 08/03/19 15:42 Sodium Chloride 1,000 ml @ 50 mls/hr Q20H IV 07/04/19 15:42 08/03/19 15:41 07/09/19 15:52 Vancomycin HCl (Firvanq) 125 mg Q6HR ORAL 07/09/19 18:00 07/16/19 17:59 07/09/19 17:21 Vancomycin HCl (Vanco rx to dose) 1 ea DAILY PRN MISC Per rx protocol 07/05/19 09:00 08/01/19 12:29 Vancomycin HCl 750 mg/Sodium Chloride 275 ml @ 183.333 mls/hr Q12H IVPB 07/08/19 14:00 07/13/19 13:59 07/09/19 14:39 Last 24 Hour Vital Signs Date Time Temp Pulse Resp B/P (MAP) Pulse Ox O2 Delivery O2 Flow Rate FiO2 07/09/19 16:00 97.7 95 22 117/72 (87) 98 07/09/19 15:17 97 07/09/19 12:00 97.0 96 22 125/73 (90) 97 07/09/19 11:56 97 07/09/19 09:00 Nasal Cannula 2.0 07/09/19 08:00 97.5 99 22 107/71 (83) 97 07/09/19 07:41 102 07/09/19 04:00 97.3 99 18 123/71 (88) 97 07/09/19 04:00 97 07/09/19 00:00 104 07/09/19 00:00 97.9 104 18 110/70 (83) 95 07/08/19 21:00 Nasal Cannula 2.0 07/08/19 20:00 97.7 107 18 117/67 (84) 95 07/08/19 20:00 107 07/08/19 16:00 97.8 82 19 124/79 (94) 98 07/08/19 15:43 107 07/08/19 12:00 97.9 104 19 121/78 (92) 96 07/08/19 11:44 102 07/08/19 09:00 Nasal Cannula 2.0 07/08/19 08:00 97.6 110 16 123/76 (92) 96 07/08/19 07:50 103 07/08/19 04:00 98.1 103 16 114/73 (87) 97 07/08/19 04:00 102 07/08/19 00:00 103 07/08/19 00:00 97.3 102 16 125/70 (88) 97 07/07/19 21:00 Nasal Cannula 2.0 07/07/19 20:00 98.1 103 16 122/79 (93) 97 07/07/19 20:00 105 Intake and Output 07/08/19 07/09/19 19:00 07:00 Intake Total 550 ml Output Total 300 ml 400 ml Balance 250 ml -400 ml IV Total 350 ml Other 200 ml Output Urine Total 300 ml 400 ml # Bowel Movements 1 Labs Test 07/07/19 06:15 07/08/19 04:40 07/08/19 07:22 07/08/19 14:00 White Blood Count 13.1 K/UL (4.8-10.8) 16.5 K/UL (4.8-10.8) Red Blood Count 2.77 M/UL (4.20-5.40) 3.18 M/UL (4.20-5.40) Hemoglobin 8.7 G/DL (12.0-16.0) 9.8 G/DL (12.0-16.0) Hematocrit 25.9 % (37.0-47.0) 29.5 % (37.0-47.0) Mean Corpuscular Volume 93 FL (80-99) 93 FL (80-99) Mean Corpuscular Hemoglobin 31.5 PG (27.0-31.0) 30.9 PG (27.0-31.0) Mean Corpuscular Hemoglobin Concent 33.7 G/DL (32.0-36.0) 33.3 G/DL (32.0-36.0) Red Cell Distribution Width 16.9 % (11.6-14.8) 16.9 % (11.6-14.8) Platelet Count 48 K/UL (150-450) 72 K/UL (150-450) Mean Platelet Volume 7.4 FL (6.5-10.1) 6.9 FL (6.5-10.1) Neutrophils (%) (Auto) % (45.0-75.0) % (45.0-75.0) Lymphocytes (%) (Auto) % (20.0-45.0) % (20.0-45.0) Monocytes (%) (Auto) % (1.0-10.0) % (1.0-10.0) Eosinophils (%) (Auto) % (0.0-3.0) % (0.0-3.0) Basophils (%) (Auto) % (0.0-2.0) % (0.0-2.0) Differential Total Cells Counted 100 100 Neutrophils % (Manual) 95 % (45-75) 93 % (45-75) Lymphocytes % (Manual) 2 % (20-45) 2 % (20-45) Monocytes % (Manual) 1 % (1-10) 3 % (1-10) Eosinophils % (Manual) 2 % (0-3) 2 % (0-3) Basophils % (Manual) 0 % (0-2) 0 % (0-2) Band Neutrophils 0 % (0-8) 0 % (0-8) Platelet Estimate Decreased Decreased Platelet Morphology Normal Normal Polychromasia 1+ 1+ Hypochromasia 1+ 1+ Anisocytosis 1+ 1+ Sodium Level 138 MMOL/L (136-145) 137 MMOL/L (136-145) Potassium Level 3.6 MMOL/L (3.5-5.1) 4.1 MMOL/L (3.5-5.1) Chloride Level 111 MMOL/L (98-107) 109 MMOL/L (98-107) Carbon Dioxide Level 19 MMOL/L (21-32) 22 MMOL/L (21-32) Anion Gap 8 mmol/L (5-15) 6 mmol/L (5-15) Blood Urea Nitrogen 19 mg/dL (7-18) 20 mg/dL (7-18) Creatinine 0.6 MG/DL (0.55-1.30) 0.6 MG/DL (0.55-1.30) Estimat Glomerular Filtration Rate > 60 mL/min (>60) > 60 mL/min (>60) Glucose Level 153 MG/DL (74-106) 103 MG/DL (74-106) Calcium Level 6.9 MG/DL (8.5-10.1) 7.5 MG/DL (8.5-10.1) Ferritin 307 NG/ML (8-388) Total Bilirubin 5.7 MG/DL (0.2-1.0) 7.6 MG/DL (0.2-1.0) Direct Bilirubin 4.1 MG/DL (0.0-0.3) 5.5 MG/DL (0.0-0.3) Aspartate Amino Transf (AST/SGOT) 47 U/L (15-37) 55 U/L (15-37) Alanine Aminotransferase (ALT/SGPT) 121 U/L (12-78) 113 U/L (12-78) Alkaline Phosphatase 126 U/L (46-116) 144 U/L (46-116) Total Protein 4.0 G/DL (6.4-8.2) 4.6 G/DL (6.4-8.2) Albumin 1.3 G/DL (3.4-5.0) 1.4 G/DL (3.4-5.0) Globulin 2.7 g/dL 3.2 g/dL Albumin/Globulin Ratio 0.5 (1.0-2.7) 0.4 (1.0-2.7) Vancomycin Level Trough 7.7 ug/mL (5.0-12.0) 6.6 ug/mL (5.0-12.0) Test 07/09/19 06:20 White Blood Count 16.6 K/UL (4.8-10.8) Red Blood Count 3.10 M/UL (4.20-5.40) Hemoglobin 9.8 G/DL (12.0-16.0) Hematocrit 27.7 % (37.0-47.0) Mean Corpuscular Volume 89 FL (80-99) Mean Corpuscular Hemoglobin 31.7 PG (27.0-31.0) Mean Corpuscular Hemoglobin Concent 35.4 G/DL (32.0-36.0) Red Cell Distribution Width 17.9 % (11.6-14.8) Platelet Count 67 K/UL (150-450) Mean Platelet Volume 6.2 FL (6.5-10.1) Neutrophils (%) (Auto) % (45.0-75.0) Lymphocytes (%) (Auto) % (20.0-45.0) Monocytes (%) (Auto) % (1.0-10.0) Eosinophils (%) (Auto) % (0.0-3.0) Basophils (%) (Auto) % (0.0-2.0) Differential Total Cells Counted 100 Neutrophils % (Manual) 92 % (45-75) Lymphocytes % (Manual) 4 % (20-45) Monocytes % (Manual) 3 % (1-10) Eosinophils % (Manual) 1 % (0-3) Basophils % (Manual) 0 % (0-2) Band Neutrophils 0 % (0-8) Platelet Estimate Decreased Platelet Morphology Normal Polychromasia 1+ Hypochromasia 1+ Anisocytosis 1+ Sodium Level 138 MMOL/L (136-145) Potassium Level 4.3 MMOL/L (3.5-5.1) Chloride Level 109 MMOL/L (98-107) Carbon Dioxide Level 20 MMOL/L (21-32) Anion Gap 9 mmol/L (5-15) Blood Urea Nitrogen 23 mg/dL (7-18) Creatinine 0.7 MG/DL (0.55-1.30) Estimat Glomerular Filtration Rate > 60 mL/min (>60) Glucose Level 83 MG/DL (74-106) Calcium Level 7.9 MG/DL (8.5-10.1) Total Bilirubin 9.5 MG/DL (0.2-1.0) Direct Bilirubin 7.1 MG/DL (0.0-0.3) Aspartate Amino Transf (AST/SGOT) 63 U/L (15-37) Alanine Aminotransferase (ALT/SGPT) 96 U/L (12-78) Alkaline Phosphatase 150 U/L (46-116) Total Protein 4.8 G/DL (6.4-8.2) Albumin 1.4 G/DL (3.4-5.0) Globulin 3.4 g/dL Albumin/Globulin Ratio 0.4 (1.0-2.7) Height (Feet): 5 Height (Inches): 2.00 Weight (Pounds): 157 Objective Physical Exam: Vitals: reviewed General Appearance: NAD HEENT: normocephalic, atraumatic Respiratory/Chest: normal breath sounds bilaterally Cardiovascular/Chest: normal peripheral pulses, normal rate Abdomen: normal bowel sounds, soft, nontender Extremities: normal range of motion Anthony Chaudhary MD Jul 09, 2019 19:17
--- NOTE | 2019-07-09 19:39 | NUR ---
HAND-OFF: Report given to ROMAIN Solano.
[2019-07-09 20:00] VITALS: BP 112/68
--- NOTE | 2019-07-09 20:55 | Hematology/Onc Progress Note ---
Assessment/Plan Assessment/Plan Assessment/Plan Assessment and Recs: # Anemia of GI bleed -- patient presents with occult+ bleeding, anemia panel reviewed iron stores are moderate but given 4 units prbc, can be falsely moderate, recheck in several days, anemia is due to variceal bleed --> as per GI eval, may need endoscopy-> s/p egd with variceal banding prior --> has been started on ppi --> cea has been ordered - normal --> Hgb goal >7. Transfuse prn. --> (s/p 4 units prbc) --> Iron x 1 dose has been orderd --> Medications have been reviewed --> continue ppi and octreotide prn per gi --> hgb trend 8.8-->8.8-->8.2-->7.2->9.6-->9.1-->8.8-->8.7-?9 # Thrombocytopenia - potential causes multifactorial, evaluate liver and viral etiologies to begin, also could be related to underlying medications patient has received. In this case is due to etoh abuse, esoph varices and cirrhosis is noted, also potential c.diff infection --> Hep panel pending and HIV negative --> US abd does show cirrhosis --> Peripheral smear ordered to evaluate for blasts /schistocytes does not show any --> abx and other meds have been reviewed --> ok for ppx if plt >50k w/ either heparin or lovenox --> Transfuse if Plt < 20k and fever, or if Plt < 10k without fever --> plt count 90k-->46k-->63k-->68k-->52k-->48k --> EGD per gi --> s/p plt transfusion on 06/29 # Leukocytosis rule out infection --> on abx, continue per id # Varices, esophageal --> potential rupture as per gi recs --> off octreotide, no active bleeding # Cirrhosis --> with hepatic enceph --> gi recs prn # Resp failure --> was intubated --> now extubated on ra # Hypokalemia with dec K --> given IV k as per pcp The timing of this note does not necessarily reflect the time of the patient was seen. GREATLY APPRECIATE CONSULTATION. Subjective Allergies: Coded Allergies: No Known Allergies (Unverified , 06/27/19) Subjective 06/29: icu, s/p egd and plt tx, levo gtt 07/01: remains on vent, ivelisse Montero rn, with c. 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 with market maker, no f/c, no night sweats 07/06: no f/c, vs stable, denies pain, on abx, labs noted 07/07: labs reviewed, plt slightly lower, on abx for c.diff 07/08: Abd distension, jaundice noted, RUE picc line intact dressing. Objective Objective Current Medications Medications (Trade) Dose Ordered Sig/Naseem Route PRN Reason Start Time Stop Time Status Last Admin Dose Admin Cefepime HCl 2 gm/ Dextrose 55 ml @ 110 mls/hr EVERY 12 HOURS IVPB 07/09/19 17:00 07/16/19 16:59 07/09/19 17:21 Chlorhexidine Gluconate (Mer-Hex 2%) 1 applic DAILY@1999 TOPIC 07/04/19 20:00 08/01/19 19:59 07/08/19 20:29 Dextrose (Dextrose 50%) 25 ml Q30M PRN IV Hypoglycemia 07/04/19 16:00 07/28/19 04:59 Dextrose (Dextrose 50%) 50 ml Q30M PRN IV Hypoglycemia 07/04/19 16:00 07/28/19 04:59 Famotidine (Pepcid I.v.) 20 mg Q12HR IVP 07/04/19 21:00 08/01/19 20:59 07/09/19 08:20 Insulin Aspart (NovoLOG) BEFORE MEALS AND HS SUBQ 07/04/19 16:30 07/28/19 06:29 07/09/19 12:01 Metronidazole 100 ml @ 100 mls/hr Q8HR IVPB 07/07/19 14:00 07/13/19 13:59 07/09/19 14:38 Morphine Sulfate (Morphine Sulfate) 2 mg Q4H PRN IVP For Pain 07/04/19 15:43 07/11/19 15:42 Ondansetron HCl (Zofran) 4 mg Q6H PRN IVP Nausea & Vomiting 07/04/19 15:43 08/03/19 15:42 Sodium Chloride 1,000 ml @ 50 mls/hr Q20H IV 07/04/19 15:42 08/03/19 15:41 07/09/19 15:52 Vancomycin HCl (Firvanq) 125 mg Q6HR ORAL 07/09/19 18:00 07/16/19 17:59 07/09/19 17:21 Vancomycin HCl (Vanco rx to dose) 1 ea DAILY PRN MISC Per rx protocol 07/05/19 09:00 08/01/19 12:29 Vancomycin HCl 750 mg/Sodium Chloride 275 ml @ 183.333 mls/hr Q12H IVPB 07/08/19 14:00 07/13/19 13:59 07/09/19 14:39 Last 24 Hour Vital Signs Date Time Temp Pulse Resp B/P (MAP) Pulse Ox O2 Delivery O2 Flow Rate FiO2 07/09/19 16:00 97.7 95 22 117/72 (87) 98 07/09/19 15:17 97 07/09/19 12:00 97.0 96 22 125/73 (90) 97 07/09/19 11:56 97 07/09/19 09:00 Nasal Cannula 2.0 07/09/19 08:00 97.5 99 22 107/71 (83) 97 07/09/19 07:41 102 07/09/19 04:00 97.3 99 18 123/71 (88) 97 07/09/19 04:00 97 07/09/19 00:00 104 07/09/19 00:00 97.9 104 18 110/70 (83) 95 07/08/19 21:00 Nasal Cannula 2.0 07/08/19 20:00 97.7 107 18 117/67 (84) 95 07/08/19 20:00 107 07/08/19 16:00 97.8 82 19 124/79 (94) 98 07/08/19 15:43 107 07/08/19 12:00 97.9 104 19 121/78 (92) 96 07/08/19 11:44 102 07/08/19 09:00 Nasal Cannula 2.0 07/08/19 08:00 97.6 110 16 123/76 (92) 96 07/08/19 07:50 103 07/08/19 04:00 98.1 103 16 114/73 (87) 97 07/08/19 04:00 102 07/08/19 00:00 103 07/08/19 00:00 97.3 102 16 125/70 (88) 97 07/07/19 21:00 Nasal Cannula 2.0 Intake and Output 07/08/19 07/09/19 19:00 07:00 Intake Total 550 ml Output Total 300 ml 400 ml Balance 250 ml -400 ml IV Total 350 ml Other 200 ml Output Urine Total 300 ml 400 ml # Bowel Movements 1 Labs Test 07/07/19 06:15 07/08/19 04:40 07/08/19 07:22 07/08/19 14:00 White Blood Count 13.1 K/UL (4.8-10.8) 16.5 K/UL (4.8-10.8) Red Blood Count 2.77 M/UL (4.20-5.40) 3.18 M/UL (4.20-5.40) Hemoglobin 8.7 G/DL (12.0-16.0) 9.8 G/DL (12.0-16.0) Hematocrit 25.9 % (37.0-47.0) 29.5 % (37.0-47.0) Mean Corpuscular Volume 93 FL (80-99) 93 FL (80-99) Mean Corpuscular Hemoglobin 31.5 PG (27.0-31.0) 30.9 PG (27.0-31.0) Mean Corpuscular Hemoglobin Concent 33.7 G/DL (32.0-36.0) 33.3 G/DL (32.0-36.0) Red Cell Distribution Width 16.9 % (11.6-14.8) 16.9 % (11.6-14.8) Platelet Count 48 K/UL (150-450) 72 K/UL (150-450) Mean Platelet Volume 7.4 FL (6.5-10.1) 6.9 FL (6.5-10.1) Neutrophils (%) (Auto) % (45.0-75.0) % (45.0-75.0) Lymphocytes (%) (Auto) % (20.0-45.0) % (20.0-45.0) Monocytes (%) (Auto) % (1.0-10.0) % (1.0-10.0) Eosinophils (%) (Auto) % (0.0-3.0) % (0.0-3.0) Basophils (%) (Auto) % (0.0-2.0) % (0.0-2.0) Differential Total Cells Counted 100 100 Neutrophils % (Manual) 95 % (45-75) 93 % (45-75) Lymphocytes % (Manual) 2 % (20-45) 2 % (20-45) Monocytes % (Manual) 1 % (1-10) 3 % (1-10) Eosinophils % (Manual) 2 % (0-3) 2 % (0-3) Basophils % (Manual) 0 % (0-2) 0 % (0-2) Band Neutrophils 0 % (0-8) 0 % (0-8) Platelet Estimate Decreased Decreased Platelet Morphology Normal Normal Polychromasia 1+ 1+ Hypochromasia 1+ 1+ Anisocytosis 1+ 1+ Sodium Level 138 MMOL/L (136-145) 137 MMOL/L (136-145) Potassium Level 3.6 MMOL/L (3.5-5.1) 4.1 MMOL/L (3.5-5.1) Chloride Level 111 MMOL/L (98-107) 109 MMOL/L (98-107) Carbon Dioxide Level 19 MMOL/L (21-32) 22 MMOL/L (21-32) Anion Gap 8 mmol/L (5-15) 6 mmol/L (5-15) Blood Urea Nitrogen 19 mg/dL (7-18) 20 mg/dL (7-18) Creatinine 0.6 MG/DL (0.55-1.30) 0.6 MG/DL (0.55-1.30) Estimat Glomerular Filtration Rate > 60 mL/min (>60) > 60 mL/min (>60) Glucose Level 153 MG/DL (74-106) 103 MG/DL (74-106) Calcium Level 6.9 MG/DL (8.5-10.1) 7.5 MG/DL (8.5-10.1) Ferritin 307 NG/ML (8-388) Total Bilirubin 5.7 MG/DL (0.2-1.0) 7.6 MG/DL (0.2-1.0) Direct Bilirubin 4.1 MG/DL (0.0-0.3) 5.5 MG/DL (0.0-0.3) Aspartate Amino Transf (AST/SGOT) 47 U/L (15-37) 55 U/L (15-37) Alanine Aminotransferase (ALT/SGPT) 121 U/L (12-78) 113 U/L (12-78) Alkaline Phosphatase 126 U/L (46-116) 144 U/L (46-116) Total Protein 4.0 G/DL (6.4-8.2) 4.6 G/DL (6.4-8.2) Albumin 1.3 G/DL (3.4-5.0) 1.4 G/DL (3.4-5.0) Globulin 2.7 g/dL 3.2 g/dL Albumin/Globulin Ratio 0.5 (1.0-2.7) 0.4 (1.0-2.7) Vancomycin Level Trough 7.7 ug/mL (5.0-12.0) 6.6 ug/mL (5.0-12.0) Test 07/09/19 06:20 White Blood Count 16.6 K/UL (4.8-10.8) Red Blood Count 3.10 M/UL (4.20-5.40) Hemoglobin 9.8 G/DL (12.0-16.0) Hematocrit 27.7 % (37.0-47.0) Mean Corpuscular Volume 89 FL (80-99) Mean Corpuscular Hemoglobin 31.7 PG (27.0-31.0) Mean Corpuscular Hemoglobin Concent 35.4 G/DL (32.0-36.0) Red Cell Distribution Width 17.9 % (11.6-14.8) Platelet Count 67 K/UL (150-450) Mean Platelet Volume 6.2 FL (6.5-10.1) Neutrophils (%) (Auto) % (45.0-75.0) Lymphocytes (%) (Auto) % (20.0-45.0) Monocytes (%) (Auto) % (1.0-10.0) Eosinophils (%) (Auto) % (0.0-3.0) Basophils (%) (Auto) % (0.0-2.0) Differential Total Cells Counted 100 Neutrophils % (Manual) 92 % (45-75) Lymphocytes % (Manual) 4 % (20-45) Monocytes % (Manual) 3 % (1-10) Eosinophils % (Manual) 1 % (0-3) Basophils % (Manual) 0 % (0-2) Band Neutrophils 0 % (0-8) Platelet Estimate Decreased Platelet Morphology Normal Polychromasia 1+ Hypochromasia 1+ Anisocytosis 1+ Sodium Level 138 MMOL/L (136-145) Potassium Level 4.3 MMOL/L (3.5-5.1) Chloride Level 109 MMOL/L (98-107) Carbon Dioxide Level 20 MMOL/L (21-32) Anion Gap 9 mmol/L (5-15) Blood Urea Nitrogen 23 mg/dL (7-18) Creatinine 0.7 MG/DL (0.55-1.30) Estimat Glomerular Filtration Rate > 60 mL/min (>60) Glucose Level 83 MG/DL (74-106) Calcium Level 7.9 MG/DL (8.5-10.1) Total Bilirubin 9.5 MG/DL (0.2-1.0) Direct Bilirubin 7.1 MG/DL (0.0-0.3) Aspartate Amino Transf (AST/SGOT) 63 U/L (15-37) Alanine Aminotransferase (ALT/SGPT) 96 U/L (12-78) Alkaline Phosphatase 150 U/L (46-116) Total Protein 4.8 G/DL (6.4-8.2) Albumin 1.4 G/DL (3.4-5.0) Globulin 3.4 g/dL Albumin/Globulin Ratio 0.4 (1.0-2.7) Height (Feet): 5 Height (Inches): 2.00 Weight (Pounds): 157 Objective Physical Exam: Vitals: reviewed General Appearance: NAD, jaundice HEENT: normocephalic, atraumatic Respiratory/Chest: normal breath sounds bilaterally Cardiovascular/Chest: normal peripheral pulses, normal rate Abdomen: normal bowel sounds, soft, nontender, + distension Extremities: normal range of motion, RUE + PICC Afua Mccormick CUTTING MACHINE OFFBEARER Jul 09, 2019 20:55
[2019-07-09] MEDS: Dyna-Hex 2% Top Sol 2oz TOPIC SCH (21:11)
[2019-07-10] VITALS: BP 127/78
[2019-07-10] MEDS: Vancomycin oral 125mg/2.5ml ORAL SCH ×5 (00:09→23:57)
[2019-07-10] MEDS: Vancomycin 750 MG in NS 275 ML IVPB SCH ×2 (02:11→15:49)
[2019-07-10 04:00] VITALS: BP 116/61
[2019-07-10 05:09] LABS: HEMATOCRIT 30.9 % (37.0-47.0); MEAN CORPUSCULAR VOLUME 97 FL (80-99); PLATELET COUNT 77 K/UL (150-450); RED CELL DISTRIBUTION WIDTH 20.5 % (11.6-14.8); WHITE BLOOD COUNT 17.1 K/UL (4.8-10.8)
[2019-07-10 05:54] LABS: ALANINE AMINOTRANSFERASE 84 U/L (12-78); ALBUMIN 1.4 G/DL (3.4-5.0); ALBUMIN/GLOBULIN RATIO 0.4 (1.0-2.7); ALKALINE PHOSPHATASE 137 U/L (46-116); ANION GAP 9 mmol/L (5-15); ASPARTATE AMINO TRANSFERASE 60 U/L (15-37); BILIRUBIN,TOTAL 10.3 MG/DL (0.2-1.0); BLOOD UREA NITROGEN 26 mg/dL (7-18); CALCIUM 7.7 MG/DL (8.5-10.1); CARBON DIOXIDE 19 MMOL/L (21-32); CHLORIDE 108 MMOL/L (98-107); CREATININE 0.7 MG/DL (0.55-1.30); PHOSPHORUS 2.6 MG/DL (2.5-4.9); POTASSIUM 4.4 MMOL/L (3.5-5.1); SODIUM 136 MMOL/L (136-145)
[2019-07-10 06:06] LABS: BILIRUBIN,DIRECT 7.5 MG/DL (0.0-0.3)
[2019-07-10] MEDS: NovoLOG Insulin Flexpen SUBQ SCH ×4 (06:26→21:00)
[2019-07-10 08:00] VITALS: BP 103/69
--- NOTE | 2019-07-10 08:32 | NUR ---
HAND-OFF: Report given to ROMAIN Willams, patient in stable condition, plan of care endorsed..
--- NOTE | 2019-07-10 08:36 | NUR ---
NURSE NOTES: Received report from ROMAIN Solano in bed, awake and resting in bed. Pt denies any pain at this time, in no acute distress. IV line intact and patent. Bed in lowest position with bedside rails up x3, Brakes engaged for safety. Call light within reach. Will continue with the plan of care.
--- NOTE | 2019-07-10 08:51 | General Progress Note ---
Assessment/Plan Status: deteriorating Assessment/Plan: Problems: (1) Acute GI bleeding ICD Codes: K92.2 - Gastrointestinal hemorrhage, unspecified SNOMED: 10225208 (2) GI bleed ICD Codes: K92.2 - Gastrointestinal hemorrhage, unspecified SNOMED: 91810633 (3) Varices, esophageal ICD Codes: I85.00 - Esophageal varices without bleeding SNOMED: 20284855 (4) Cirrhosis ICD Codes: K74.60 - Unspecified cirrhosis of liver SNOMED: 29424140 Status: stable Assessment/Plan Assessment - Cirrhosis - UGIB due to esophageal varicies s/p banding - C Diff, on IV flagyl (no oral access for PO vanco at this time) - Resp failure - anemia - lactic acidosis - leukocytosis - guarded Recommendations - serial CBC - transfuse PRN to keep Hg > 7 - on diet - H2B - follow labs -repeat paracentesis for today -PT to ambulate -will sent autoimmune serology -overall poor prognosis Subjective ROS Limited/Unobtainable: Yes Allergies: Coded Allergies: No Known Allergies (Unverified , 06/27/19) Objective Last 24 Hour Vital Signs Date Time Temp Pulse Resp B/P (MAP) Pulse Ox O2 Delivery O2 Flow Rate FiO2 07/10/19 04:00 98 07/10/19 04:00 97.5 102 18 116/61 (79) 97 07/10/19 00:00 98 07/10/19 00:00 97.9 100 20 127/78 (94) 97 07/09/19 21:00 Nasal Cannula 2.0 07/09/19 20:00 97.4 100 18 112/68 (83) 98 07/09/19 20:00 100 07/09/19 16:00 97.7 95 22 117/72 (87) 98 07/09/19 15:17 97 07/09/19 12:00 97.0 96 22 125/73 (90) 97 07/09/19 11:56 97 07/09/19 09:00 Nasal Cannula 2.0 Intake and Output 07/09/19 07/10/19 18:59 06:59 Intake Total 820 ml Output Total 3900 ml 600 ml Balance -3080 ml -600 ml Intake Oral 120 ml Blood Product 500 ml Other 200 ml Output Urine Total 400 ml 600 ml Other 3500 ml # Voids 3 # Bowel Movements 1 1 Laboratory Tests 07/10/19 00:50: Vancomycin Level Trough 16.4H 07/10/19 05:00: White Blood Count 17.1H, Red Blood Count 3.20L, Hemoglobin 10.0L, Hematocrit 30.9L, Mean Corpuscular Volume 97#, Mean Corpuscular Hemoglobin 31.1H, Mean Corpuscular Hemoglobin Concent 32.2, Red Cell Distribution Width 20.5H, Platelet Count 77L, Mean Platelet Volume 6.3L, Neutrophils (%) (Auto) , Lymphocytes (%) (Auto) , Monocytes (%) (Auto) , Eosinophils (%) (Auto) , Basophils (%) (Auto) , Differential Total Cells Counted 100, Neutrophils % ( Manual) 95H, Lymphocytes % (Manual) 3L, Monocytes % (Manual) 2, Eosinophils % ( Manual) 0, Basophils % (Manual) 0, Band Neutrophils 0, Platelet Estimate DecreasedL, Platelet Morphology Normal, Hypochromasia 1+, Anisocytosis 2+, Prothrombin Time 20.9H, Prothromb Time International Ratio 2.0H, Activated Partial Thromboplast Time 60H, Sodium Level 136, Potassium Level 4.4, Chloride Level 108H, Carbon Dioxide Level 19L, Anion Gap 9, Blood Urea Nitrogen 26H, Creatinine 0.7, Estimat Glomerular Filtration Rate > 60, Glucose Level 99, Calcium Level 7.7L, Phosphorus Level 2.6, Magnesium Level 1.7L, Total Bilirubin 10.3H, Direct Bilirubin 7.5H, Aspartate Amino Transf (AST/SGOT) 60H, Alanine Aminotransferase (ALT/SGPT) 84H, Alkaline Phosphatase 137H, Total Protein 4.7L, Albumin 1.4L, Globulin 3.3, Albumin/Globulin Ratio 0.4L Height (Feet): 5 Height (Inches): 2.00 Weight (Pounds): 160 General Appearance: alert EENT: normal ENT inspection Neck: supple Cardiovascular: normal rate Respiratory/Chest: decreased breath sounds Abdomen: soft, hypoactive bowel sounds, distended Extremities: non-tender Mina Garcia MD Jul 10, 2019 08:51
[2019-07-10] MEDS: Cefepime HCl 2 GM in D5W 55 ML IVPB SCH ×3 (09:00→11:27)
--- NOTE | 2019-07-10 09:30 | General Progress Note ---
Assessment/Plan Status: deteriorating Assessment/Plan: 69-year-old female with past medical history of liver cirrhosis without known etiology presents for hematemesis- overall worsening #Hypovolemic/ septic shock secondary to hematemesis- resolved off pressors, PNA , C diff -s/p PRBC, platelet transfusion on admission- Hemoglobin stable -GI consult, appreciate recs: EGD 06/29/2019, esophageal varices x7 banding. Blood in abdomen. A limited however no active bleeding noted -Continue to monitor Hb. PRBC if < 7 or if acute bleed with Hb < 8 -Surgery consult, appreciate recs -Cardiology consult, appreciate recs -Echo: ef wnl -prognosis guarded #Liver cirrhosis with esophageal varices MELD 19 -Status post EGD as above -PPI -s/p Octreotide drip -Monitor CBC and BMP -Patient denies alcohol use, family states reason for liver cirrhosis is unknown. Differentials include Saunders versus autoimmune causes. Hepatitis panel negative, LYRIC, anti-mitochondrial and F-actin igG negative. Acetaminophen level 3, -Right upper quadrant ultrasound: Reviewed, no gallstones -Continue lactulose -CEA normal -prognosis guarded, worsening bilirubin. worsening leukocytosis. Approaching fulminant liver failure. Needs transplant. Case discussed with GI [facility] Jarvis Whitfield and Dr. Maurer -Repeat paracentesis today for fluid removal #Hepatic encephalopathy -Continue lactulose as per above #Intubation for airway protection and encephalopathy, extubated 07/03 -Pulmonology consult, appreciate recs #Worsening leukocytosis, continue to monitor POSITIVE C. difficile. Started on flagyl 07/01. Now on PO Vancomycin as well. placed on cefepime by ID to cover gram negative in sputum. f/u sensitivities. ID consultation appreciated. #Urinary retention -Continue Rouse for now due to poor mobility -Monitor ins and outs -UA negative #Elevated troponin, likely secondary to demand ischemia -Cardiology consulted, appreciate recs -Echo: Within normal limits -Troponins downtrended. #Lactic acidosis, improved # Physical deconditioning - PT evaluation -Advance diet # Disposition - PT evaluation recommends SNF and skilled therapy. - CM consult -poor prognosis -code status: full code for now, I discussed with daughter patient's condition today. She expressed to me patient would not want to be heavily resuscitated and rather peacefully. Provided family with MOLST from to discuss and make decisions. Time of this not may not reflect time of encounter. I spent 40 minutes during this encounter, 50 percent spent on counselling and care coordination Subjective Date patient seen: Jul 10, 2019 ROS Limited/Unobtainable: No Constitutional: Reports: weakness Allergies: Coded Allergies: No Known Allergies (Unverified , 06/27/19) Subjective seen at bedside, seems comfortable. family at bedside. Explained to her that wbc is worsening Liver function tests and rising wbc Needs PT for increase motility GI for paracentesis today Objective Last 24 Hour Vital Signs Date Time Temp Pulse Resp B/P (MAP) Pulse Ox O2 Delivery O2 Flow Rate FiO2 07/10/19 04:00 98 07/10/19 04:00 97.5 102 18 116/61 (79) 97 07/10/19 00:00 98 07/10/19 00:00 97.9 100 20 127/78 (94) 97 07/09/19 21:00 Nasal Cannula 2.0 07/09/19 20:00 97.4 100 18 112/68 (83) 98 07/09/19 20:00 100 07/09/19 16:00 97.7 95 22 117/72 (87) 98 07/09/19 15:17 97 07/09/19 12:00 97.0 96 22 125/73 (90) 97 07/09/19 11:56 97 Intake and Output 07/09/19 07/10/19 19:00 07:00 Intake Total 820 ml Output Total 3900 ml 600 ml Balance -3080 ml -600 ml Intake Oral 120 ml Blood Product 500 ml Other 200 ml Output Urine Total 400 ml 600 ml Other 3500 ml # Voids 3 # Bowel Movements 1 1 Laboratory Tests 07/10/19 00:50: Vancomycin Level Trough 16.4H 07/10/19 05:00: White Blood Count 17.1H, Red Blood Count 3.20L, Hemoglobin 10.0L, Hematocrit 30.9L, Mean Corpuscular Volume 97#, Mean Corpuscular Hemoglobin 31.1H, Mean Corpuscular Hemoglobin Concent 32.2, Red Cell Distribution Width 20.5H, Platelet Count 77L, Mean Platelet Volume 6.3L, Neutrophils (%) (Auto) , Lymphocytes (%) (Auto) , Monocytes (%) (Auto) , Eosinophils (%) (Auto) , Basophils (%) (Auto) , Differential Total Cells Counted 100, Neutrophils % ( Manual) 95H, Lymphocytes % (Manual) 3L, Monocytes % (Manual) 2, Eosinophils % ( Manual) 0, Basophils % (Manual) 0, Band Neutrophils 0, Platelet Estimate DecreasedL, Platelet Morphology Normal, Hypochromasia 1+, Anisocytosis 2+, Prothrombin Time 20.9H, Prothromb Time International Ratio 2.0H, Activated Partial Thromboplast Time 60H, Sodium Level 136, Potassium Level 4.4, Chloride Level 108H, Carbon Dioxide Level 19L, Anion Gap 9, Blood Urea Nitrogen 26H, Creatinine 0.7, Estimat Glomerular Filtration Rate > 60, Glucose Level 99, Calcium Level 7.7L, Phosphorus Level 2.6, Magnesium Level 1.7L, Total Bilirubin 10.3H, Direct Bilirubin 7.5H, Aspartate Amino Transf (AST/SGOT) 60H, Alanine Aminotransferase (ALT/SGPT) 84H, Alkaline Phosphatase 137H, Total Protein 4.7L, Albumin 1.4L, Globulin 3.3, Albumin/Globulin Ratio 0.4L Height (Feet): 5 Height (Inches): 2.00 Weight (Pounds): 160 Objective General Appearance: no distress EENT: PERRL/EOMI, +jaundice Neck: non-tender, normal alignment Cardiovascular: normal rate, regular rhythm Respiratory/Chest: lungs clear, normal breath sounds Abdomen: non tender, soft, distended, + ascites, weeping 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 Jul 10, 2019 09:30
--- NOTE | 2019-07-10 09:38 | Pulmonology Progress Note ---
Assessment/Plan Assessment/Plan IMPRESSION: 1. Respiratory failure. Resolved. Extubated 07/03/19 2. Upper GI bleed, likely gastric varices. S/p EGD 3. Diabetes mellitus. 4. Anemia. Hgb stable 5. Thrombocytopenia; 6. Likely hepatic encephalopathy; continue lactulose; has C diff + DISCUSSION: Low flow O2 Continue lactulose Abx for C diff Slowly improving James Zeng M.D. Subjective Interval Events: None new Constitutional: Reports: no symptoms HEENT: Repors: no symptoms Respiratory: Reports: no symptoms Cardiovascular: Reports: no symptoms Gastrointestinal/Abdominal: Reports: no symptoms Genitourinary: Reports: no symptoms Allergies: Coded Allergies: No Known Allergies (Unverified , 06/27/19) Objective Last 24 Hour Vital Signs Date Time Temp Pulse Resp B/P (MAP) Pulse Ox O2 Delivery O2 Flow Rate FiO2 07/10/19 04:00 98 07/10/19 04:00 97.5 102 18 116/61 (79) 97 07/10/19 00:00 98 07/10/19 00:00 97.9 100 20 127/78 (94) 97 07/09/19 21:00 Nasal Cannula 2.0 07/09/19 20:00 97.4 100 18 112/68 (83) 98 07/09/19 20:00 100 07/09/19 16:00 97.7 95 22 117/72 (87) 98 07/09/19 15:17 97 07/09/19 12:00 97.0 96 22 125/73 (90) 97 07/09/19 11:56 97 Intake and Output 07/09/19 07/10/19 19:00 07:00 Intake Total 820 ml Output Total 3900 ml 600 ml Balance -3080 ml -600 ml Intake Oral 120 ml Blood Product 500 ml Other 200 ml Output Urine Total 400 ml 600 ml Other 3500 ml # Voids 3 # Bowel Movements 1 1 General Appearance: no acute distress HEENT: normocephalic Respiratory/Chest: chest wall non-tender, lungs clear Cardiovascular: normal peripheral pulses, normal rate Abdomen: normal bowel sounds Microbiology Date/Time Source Procedure Growth Status 07/08/19 08:34 Sputum Gram Stain - Final Resulted 07/08/19 08:34 Sputum Culture - Preliminary Escherichia Coli Resulted Laboratory Tests 07/10/19 00:50: Vancomycin Level Trough 16.4H 07/10/19 05:00: White Blood Count 17.1H, Red Blood Count 3.20L, Hemoglobin 10.0L, Hematocrit 30.9L, Mean Corpuscular Volume 97#, Mean Corpuscular Hemoglobin 31.1H, Mean Corpuscular Hemoglobin Concent 32.2, Red Cell Distribution Width 20.5H, Platelet Count 77L, Mean Platelet Volume 6.3L, Neutrophils (%) (Auto) , Lymphocytes (%) (Auto) , Monocytes (%) (Auto) , Eosinophils (%) (Auto) , Basophils (%) (Auto) , Differential Total Cells Counted 100, Neutrophils % ( Manual) 95H, Lymphocytes % (Manual) 3L, Monocytes % (Manual) 2, Eosinophils % ( Manual) 0, Basophils % (Manual) 0, Band Neutrophils 0, Platelet Estimate DecreasedL, Platelet Morphology Normal, Hypochromasia 1+, Anisocytosis 2+, Prothrombin Time 20.9H, Prothromb Time International Ratio 2.0H, Activated Partial Thromboplast Time 60H, Sodium Level 136, Potassium Level 4.4, Chloride Level 108H, Carbon Dioxide Level 19L, Anion Gap 9, Blood Urea Nitrogen 26H, Creatinine 0.7, Estimat Glomerular Filtration Rate > 60, Glucose Level 99, Calcium Level 7.7L, Phosphorus Level 2.6, Magnesium Level 1.7L, Total Bilirubin 10.3H, Direct Bilirubin 7.5H, Aspartate Amino Transf (AST/SGOT) 60H, Alanine Aminotransferase (ALT/SGPT) 84H, Alkaline Phosphatase 137H, Total Protein 4.7L, Albumin 1.4L, Globulin 3.3, Albumin/Globulin Ratio 0.4L Current Medications Medications (Trade) Dose Ordered Sig/Naseem Route PRN Reason Start Time Stop Time Status Last Admin Dose Admin Cefepime HCl 2 gm/ Dextrose 55 ml @ 110 mls/hr EVERY 12 HOURS IVPB 07/09/19 17:00 07/16/19 16:59 07/09/19 17:21 Chlorhexidine Gluconate (Mer-Hex 2%) 1 applic DAILY@1999 TOPIC 07/04/19 20:00 08/01/19 19:59 07/09/19 21:11 Dextrose (Dextrose 50%) 25 ml Q30M PRN IV Hypoglycemia 07/04/19 16:00 07/28/19 04:59 Dextrose (Dextrose 50%) 50 ml Q30M PRN IV Hypoglycemia 07/04/19 16:00 07/28/19 04:59 Famotidine (Pepcid I.v.) 20 mg Q12HR IVP 07/04/19 21:00 08/01/19 20:59 07/09/19 21:11 Insulin Aspart (NovoLOG) BEFORE MEALS AND HS SUBQ 07/04/19 16:30 07/28/19 06:29 07/09/19 21:26 Metronidazole 100 ml @ 100 mls/hr Q8HR IVPB 07/07/19 14:00 07/13/19 13:59 07/10/19 05:44 Morphine Sulfate (Morphine Sulfate) 2 mg Q4H PRN IVP For Pain 07/04/19 15:43 07/11/19 15:42 Ondansetron HCl (Zofran) 4 mg Q6H PRN IVP Nausea & Vomiting 07/04/19 15:43 08/03/19 15:42 Sodium Chloride 1,000 ml @ 50 mls/hr Q20H IV 07/04/19 15:42 08/03/19 15:41 07/09/19 15:52 Vancomycin HCl (Firvanq) 125 mg Q6HR ORAL 07/09/19 18:00 07/16/19 17:59 07/10/19 05:44 Vancomycin HCl (Vanco rx to dose) 1 ea DAILY PRN MISC Per rx protocol 07/05/19 09:00 08/01/19 12:29 Vancomycin HCl 750 mg/Sodium Chloride 275 ml @ 183.333 mls/hr Q12H IVPB 07/08/19 14:00 07/13/19 13:59 07/10/19 02:11 James Zeng MD Jul 10, 2019 09:38
--- NOTE | 2019-07-10 12:09 | Cardiology Progress Note ---
Assessment/Plan Status: stable Assessment/Plan Assessment/Plan Status: stable Assessment/Plan: Problems: (1) Varices, esophageal (2) Cirrhosis (3) GI bleed (4) Acute GI bleeding (5) Elevated troponin (6) Diastolic dysfunction PLAN: Slowly improving Trend Troponin/EKG - likely demand ischemia from anemia/emesis Transfuse >7 Echo reviewed, normal LV function Stress test when stable prior to d/c Monitor H/H, transfuse prn s/p EGD with banding x7 Hold aspirin Off pressors Continue PPI BID Subjective Cardiovascular: Reports: no symptoms Respiratory: Reports: no symptoms Gastrointestinal/Abdominal: Reports: no symptoms Genitourinary: Reports: no symptoms Subjective Mild tachycardia, BP stable, on 2 liters NC, no acute events, nursing notes reveiwed Objective Last 24 Hour Vital Signs Date Time Temp Pulse Resp B/P (MAP) Pulse Ox O2 Delivery O2 Flow Rate FiO2 07/10/19 09:00 Nasal Cannula 2.0 07/10/19 08:00 98.0 100 20 103/69 (80) 95 07/10/19 08:00 100 07/10/19 04:00 98 07/10/19 04:00 97.5 102 18 116/61 (79) 97 07/10/19 00:00 98 07/10/19 00:00 97.9 100 20 127/78 (94) 97 07/09/19 21:00 Nasal Cannula 2.0 07/09/19 20:00 97.4 100 18 112/68 (83) 98 07/09/19 20:00 100 07/09/19 16:00 97.7 95 22 117/72 (87) 98 07/09/19 15:17 97 General Appearance: no apparent distress, lethargic EENT: PERRL/EOMI, normal ENT inspection, TMs normal, pharynx normal Neck: non-tender, normal alignment, supple, normal inspection Rhythm: ST Cardiovascular: normal peripheral pulses, normal rate, tachycardia Respiratory/Chest: chest wall non-tender, accessory muscle use Abdomen: normal bowel sounds, non tender, soft, no organomegaly Extremities: normal range of motion, non-tender, normal inspection 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1 PG (27.0-31.0) H Mean Corpuscular Hemoglobin Concent 32.2 G/DL (32.0-36.0) Red Cell Distribution Width 20.5 % (11.6-14.8) H Platelet Count 77 K/UL (150-450) L Mean Platelet Volume 6.3 FL (6.5-10.1) L Neutrophils (%) (Auto) % (45.0-75.0) Lymphocytes (%) (Auto) % (20.0-45.0) Monocytes (%) (Auto) % (1.0-10.0) Eosinophils (%) (Auto) % (0.0-3.0) Basophils (%) (Auto) % (0.0-2.0) Differential Total Cells Counted 100 Neutrophils % (Manual) 95 % (45-75) H Lymphocytes % (Manual) 3 % (20-45) L Monocytes % (Manual) 2 % (1-10) Eosinophils % (Manual) 0 % (0-3) Basophils % (Manual) 0 % (0-2) Band Neutrophils 0 % (0-8) Platelet Estimate Decreased L Platelet Morphology Normal Hypochromasia 1+ Anisocytosis 2+ Prothrombin Time 20.9 SEC (9.30-11.50) H Prothromb Time International Ratio 2.0 (0.9-1.1) H Activated Partial Thromboplast Time 60 SEC (23-33) H Sodium Level 136 MMOL/L (136-145) Potassium Level 4.4 MMOL/L (3.5-5.1) Chloride Level 108 MMOL/L (98-107) H Carbon Dioxide Level 19 MMOL/L (21-32) L Anion Gap 9 mmol/L (5-15) Blood Urea Nitrogen 26 mg/dL (7-18) H Creatinine 0.7 MG/DL (0.55-1.30) Estimat Glomerular Filtration Rate > 60 mL/min (>60) Glucose Level 99 MG/DL (74-106) Calcium Level 7.7 MG/DL (8.5-10.1) L Phosphorus Level 2.6 MG/DL (2.5-4.9) Magnesium Level 1.7 MG/DL (1.8-2.4) L Total Bilirubin 10.3 MG/DL (0.2-1.0) H Direct Bilirubin 7.5 MG/DL (0.0-0.3) H Aspartate Amino Transf (AST/SGOT) 60 U/L (15-37) H Alanine Aminotransferase (ALT/SGPT) 84 U/L (12-78) H Alkaline Phosphatase 137 U/L (46-116) H Total Protein 4.7 G/DL (6.4-8.2) L Albumin 1.4 G/DL (3.4-5.0) L Globulin 3.3 g/dL Albumin/Globulin Ratio 0.4 (1.0-2.7) L Microbiology Date/Time Source Procedure Growth Status 07/08/19 08:34 Sputum Gram Stain - Final Resulted 07/08/19 08:34 Sputum Culture - Preliminary Escherichia Coli Resulted Winston De La Torre MD Jul 10, 2019 12:09
--- NOTE | 2019-07-10 13:24 | Hematology/Onc Progress Note ---
Assessment/Plan Assessment/Plan Assessment and Recs: # Anemia of GI bleed -- patient presents with occult+ bleeding, anemia panel reviewed iron stores are moderate but given 4 units prbc, can be falsely moderate, recheck in several days, anemia is due to variceal bleed --> as per GI eval, may need endoscopy-> s/p egd with variceal banding prior --> has been started on ppi --> cea has been ordered - normal --> Hgb goal >7. Transfuse prn. --> (s/p 4 units prbc) --> Iron x 1 dose has been given --> Medications have been reviewed --> continue ppi and octreotide prn per gi --> hgb trend 8.8-->8.8-->8.2-->7.2->9.6-->9.1-->8.8-->8.7-->9 # Thrombocytopenia - potential causes multifactorial, evaluate liver and viral etiologies to begin, also could be related to underlying medications patient has received. In this case is due to etoh abuse, esoph varices and cirrhosis is noted, also potential c.diff infection --> Hep panel pending and HIV negative --> US abd does show cirrhosis --> Peripheral smear ordered to evaluate for blasts /schistocytes does not show any --> abx and other meds have been reviewed --> ok for ppx if plt >50k w/ either heparin or lovenox --> Transfuse if Plt < 20k and fever, or if Plt < 10k without fever --> plt count 90k-->46k-->63k-->68k-->52k-->48k->77k --> EGD per gi --> s/p plt transfusion on 06/29 # Leukocytosis rule out infection --> on abx, continue per id # Varices, esophageal --> potential rupture as per gi recs --> off octreotide # Cirrhosis --> with hepatic enceph --> gi recs prn # Resp failure did require intubation during hospitalization --> now extubated on ra # Hypokalemia with dec K --> given IV k as per pcp The timing of this note does not necessarily reflect the time of the patient was seen. GREATLY APPRECIATE CONSULTATION. Subjective HEENT: Denies: no symptoms, eye pain, blurred vision, tearing, double vision, ear pain, ear discharge, nose pain, nose congestion, throat pain, throat swelling, mouth pain, mouth swelling, other Cardiovascular: Denies: no symptoms, chest pain, edema, irregular heart rate, lightheadedness, palpitations, syncope, other Respiratory: Denies: no symptoms, cough, shortness of breath, SOB with excertion, SOB at rest, sputum, wheezing, other Genitourinary: Denies: no symptoms, burning, discharge, frequency, flank pain, hematuria, incontinence, pain, urgency, other Neurologic/Psychiatric: Denies: no symptoms, anxiety, depressed, emotional problems, headache, numbness, paresthesia, pre-existing deficit, seizure, tingling, tremors, weakness, other Endocrine: Denies: no symptoms, excessive sweating, flushing, intolerance to cold, intolerance to heat, increased hunger, increased thirst, increased urine, unexplained weight gain, unexplained weight loss, other Hematologic/Lymphatic: Denies: no symptoms, anemia, easy bleeding, easy bruising, adenopathy, other Allergies: Coded Allergies: No Known Allergies (Unverified , 06/27/19) Subjective 06/29: icu, s/p egd and plt tx, levo gtt 07/01: remains on vent, ivelisse Montero rn, with c. 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 with apprentice lineman third step, no f/c, no night sweats 07/06: no f/c, vs stable, denies pain, on abx, labs noted 07/07: labs reviewed, plt slightly lower, on abx for c.diff 07/09: no fevers, no chulls, labs reviewed, on abx 07/10: labs reviewed, bili is higher, seen by gi Objective Objective Current Medications Medications (Trade) Dose Ordered Sig/Naseem Route PRN Reason Start Time Stop Time Status Last Admin Dose Admin Cefepime HCl 2 gm/ Dextrose 55 ml @ 110 mls/hr EVERY 12 HOURS IVPB 07/09/19 17:00 07/16/19 16:59 07/10/19 11:27 Chlorhexidine Gluconate (Mer-Hex 2%) 1 applic DAILY@2000 TOPIC 07/04/19 20:00 08/01/19 19:59 07/09/19 21:11 Dextrose (Dextrose 50%) 25 ml Q30M PRN IV Hypoglycemia 07/04/19 16:00 07/28/19 04:59 Dextrose (Dextrose 50%) 50 ml Q30M PRN IV Hypoglycemia 07/04/19 16:00 07/28/19 04:59 Famotidine (Pepcid I.v.) 20 mg Q12HR IVP 07/04/19 21:00 08/01/19 20:59 07/10/19 10:00 Insulin Aspart (NovoLOG) BEFORE MEALS AND HS SUBQ 07/04/19 16:30 07/28/19 06:29 07/09/19 21:26 Metronidazole 100 ml @ 100 mls/hr Q8HR IVPB 07/07/19 14:00 07/13/19 13:59 07/10/19 13:02 Morphine Sulfate (Morphine Sulfate) 2 mg Q4H PRN IVP For Pain 07/04/19 15:43 07/11/19 15:42 Ondansetron HCl (Zofran) 4 mg Q6H PRN IVP Nausea & Vomiting 07/04/19 15:43 08/03/19 15:42 Sodium Chloride 1,000 ml @ 50 mls/hr Q20H IV 07/04/19 15:42 08/03/19 15:41 07/10/19 12:54 Vancomycin HCl (Firvanq) 125 mg Q6HR ORAL 07/09/19 18:00 07/16/19 17:59 07/10/19 13:15 Vancomycin HCl (Vanco rx to dose) 1 ea DAILY PRN MISC Per rx protocol 07/05/19 09:00 08/01/19 12:29 Vancomycin HCl 750 mg/Sodium Chloride 275 ml @ 183.333 mls/hr Q12H IVPB 07/08/19 14:00 07/13/19 13:59 07/10/19 02:11 Last 24 Hour Vital Signs Date Time Temp Pulse Resp B/P (MAP) Pulse Ox O2 Delivery O2 Flow Rate FiO2 07/10/19 09:00 Nasal Cannula 2.0 07/10/19 08:00 98.0 100 20 103/69 (80) 95 07/10/19 08:00 100 07/10/19 04:00 98 07/10/19 04:00 97.5 102 18 116/61 (79) 97 07/10/19 00:00 98 07/10/19 00:00 97.9 100 20 127/78 (94) 97 07/09/19 21:00 Nasal Cannula 2.0 07/09/19 20:00 97.4 100 18 112/68 (83) 98 07/09/19 20:00 100 07/09/19 16:00 97.7 95 22 117/72 (87) 98 07/09/19 15:17 97 07/09/19 12:00 97.0 96 22 125/73 (90) 97 07/09/19 11:56 97 07/09/19 09:00 Nasal Cannula 2.0 07/09/19 08:00 97.5 99 22 107/71 (83) 97 07/09/19 07:41 102 07/09/19 04:00 97.3 99 18 123/71 (88) 97 07/09/19 04:00 97 07/09/19 00:00 104 07/09/19 00:00 97.9 104 18 110/70 (83) 95 07/08/19 21:00 Nasal Cannula 2.0 07/08/19 20:00 97.7 107 18 117/67 (84) 95 07/08/19 20:00 107 07/08/19 16:00 97.8 82 19 124/79 (94) 98 07/08/19 15:43 107 Intake and Output 07/09/19 07/10/19 19:00 07:00 Intake Total 820 ml Output Total 3900 ml 600 ml Balance -3080 ml -600 ml Intake Oral 120 ml Blood Product 500 ml Other 200 ml Output Urine Total 400 ml 600 ml Other 3500 ml # Voids 3 # Bowel Movements 1 1 Labs Test 07/08/19 04:40 07/08/19 07:22 07/08/19 14:00 07/09/19 06:20 White Blood Count 16.5 K/UL (4.8-10.8) 16.6 K/UL (4.8-10.8) Red Blood Count 3.18 M/UL (4.20-5.40) 3.10 M/UL (4.20-5.40) Hemoglobin 9.8 G/DL (12.0-16.0) 9.8 G/DL (12.0-16.0) Hematocrit 29.5 % (37.0-47.0) 27.7 % (37.0-47.0) Mean Corpuscular Volume 93 FL (80-99) 89 FL (80-99) Mean Corpuscular Hemoglobin 30.9 PG (27.0-31.0) 31.7 PG (27.0-31.0) Mean Corpuscular Hemoglobin Concent 33.3 G/DL (32.0-36.0) 35.4 G/DL (32.0-36.0) Red Cell Distribution Width 16.9 % (11.6-14.8) 17.9 % (11.6-14.8) Platelet Count 72 K/UL (150-450) 67 K/UL (150-450) Mean Platelet Volume 6.9 FL (6.5-10.1) 6.2 FL (6.5-10.1) Neutrophils (%) (Auto) % (45.0-75.0) % (45.0-75.0) Lymphocytes (%) (Auto) % (20.0-45.0) % (20.0-45.0) Monocytes (%) (Auto) % (1.0-10.0) % (1.0-10.0) Eosinophils (%) (Auto) % (0.0-3.0) % (0.0-3.0) Basophils (%) (Auto) % (0.0-2.0) % (0.0-2.0) Differential Total Cells Counted 100 100 Neutrophils % (Manual) 93 % (45-75) 92 % (45-75) Lymphocytes % (Manual) 2 % (20-45) 4 % (20-45) Monocytes % (Manual) 3 % (1-10) 3 % (1-10) Eosinophils % (Manual) 2 % (0-3) 1 % (0-3) Basophils % (Manual) 0 % (0-2) 0 % (0-2) Band Neutrophils 0 % (0-8) 0 % (0-8) Platelet Estimate Decreased Decreased Platelet Morphology Normal Normal Polychromasia 1+ 1+ Hypochromasia 1+ 1+ Anisocytosis 1+ 1+ Sodium Level 137 MMOL/L (136-145) 138 MMOL/L (136-145) Potassium Level 4.1 MMOL/L (3.5-5.1) 4.3 MMOL/L (3.5-5.1) Chloride Level 109 MMOL/L (98-107) 109 MMOL/L (98-107) Carbon Dioxide Level 22 MMOL/L (21-32) 20 MMOL/L (21-32) Anion Gap 6 mmol/L (5-15) 9 mmol/L (5-15) Blood Urea Nitrogen 20 mg/dL (7-18) 23 mg/dL (7-18) Creatinine 0.6 MG/DL (0.55-1.30) 0.7 MG/DL (0.55-1.30) Estimat Glomerular Filtration Rate > 60 mL/min (>60) > 60 mL/min (>60) Glucose Level 103 MG/DL (74-106) 83 MG/DL (74-106) Calcium Level 7.5 MG/DL (8.5-10.1) 7.9 MG/DL (8.5-10.1) Total Bilirubin 7.6 MG/DL (0.2-1.0) 9.5 MG/DL (0.2-1.0) Direct Bilirubin 5.5 MG/DL (0.0-0.3) 7.1 MG/DL (0.0-0.3) Aspartate Amino Transf (AST/SGOT) 55 U/L (15-37) 63 U/L (15-37) Alanine Aminotransferase (ALT/SGPT) 113 U/L (12-78) 96 U/L (12-78) Alkaline Phosphatase 144 U/L (46-116) 150 U/L (46-116) Total Protein 4.6 G/DL (6.4-8.2) 4.8 G/DL (6.4-8.2) Albumin 1.4 G/DL (3.4-5.0) 1.4 G/DL (3.4-5.0) Globulin 3.2 g/dL 3.4 g/dL Albumin/Globulin Ratio 0.4 (1.0-2.7) 0.4 (1.0-2.7) Vancomycin Level Trough 7.7 ug/mL (5.0-12.0) 6.6 ug/mL (5.0-12.0) Test 07/10/19 00:50 07/10/19 05:00 Vancomycin Level Trough 16.4 ug/mL (5.0-12.0) White Blood Count 17.1 K/UL (4.8-10.8) Red Blood Count 3.20 M/UL (4.20-5.40) Hemoglobin 10.0 G/DL (12.0-16.0) Hematocrit 30.9 % (37.0-47.0) Mean Corpuscular Volume 97 FL (80-99) Mean Corpuscular Hemoglobin 31.1 PG (27.0-31.0) Mean Corpuscular Hemoglobin Concent 32.2 G/DL (32.0-36.0) Red Cell Distribution Width 20.5 % (11.6-14.8) Platelet Count 77 K/UL (150-450) Mean Platelet Volume 6.3 FL (6.5-10.1) Neutrophils (%) (Auto) % (45.0-75.0) Lymphocytes (%) (Auto) % (20.0-45.0) Monocytes (%) (Auto) % (1.0-10.0) Eosinophils (%) (Auto) % (0.0-3.0) Basophils (%) (Auto) % (0.0-2.0) Differential Total Cells Counted 100 Neutrophils % (Manual) 95 % (45-75) Lymphocytes % (Manual) 3 % (20-45) Monocytes % (Manual) 2 % (1-10) Eosinophils % (Manual) 0 % (0-3) Basophils % (Manual) 0 % (0-2) Band Neutrophils 0 % (0-8) Platelet Estimate Decreased Platelet Morphology Normal Hypochromasia 1+ Anisocytosis 2+ Prothrombin Time 20.9 SEC (9.30-11.50) Prothromb Time International Ratio 2.0 (0.9-1.1) Activated Partial Thromboplast Time 60 SEC (23-33) Sodium Level 136 MMOL/L (136-145) Potassium Level 4.4 MMOL/L (3.5-5.1) Chloride Level 108 MMOL/L (98-107) Carbon Dioxide Level 19 MMOL/L (21-32) Anion Gap 9 mmol/L (5-15) Blood Urea Nitrogen 26 mg/dL (7-18) Creatinine 0.7 MG/DL (0.55-1.30) Estimat Glomerular Filtration Rate > 60 mL/min (>60) Glucose Level 99 MG/DL (74-106) Calcium Level 7.7 MG/DL (8.5-10.1) Phosphorus Level 2.6 MG/DL (2.5-4.9) Magnesium Level 1.7 MG/DL (1.8-2.4) Total Bilirubin 10.3 MG/DL (0.2-1.0) Direct Bilirubin 7.5 MG/DL (0.0-0.3) Aspartate Amino Transf (AST/SGOT) 60 U/L (15-37) Alanine Aminotransferase (ALT/SGPT) 84 U/L (12-78) Alkaline Phosphatase 137 U/L (46-116) Total Protein 4.7 G/DL (6.4-8.2) Albumin 1.4 G/DL (3.4-5.0) Globulin 3.3 g/dL Albumin/Globulin Ratio 0.4 (1.0-2.7) Height (Feet): 5 Height (Inches): 2.00 Weight (Pounds): 160 Objective Physical Exam: Vitals: reviewed General Appearance: NAD HEENT: normocephalic, atraumatic Respiratory/Chest: normal breath sounds bilaterally Cardiovascular/Chest: normal peripheral pulses, normal rate Abdomen: normal bowel sounds, soft, nontender Extremities: normal range of motion Anthony Chaudhary MD Jul 10, 2019 13:24
--- NOTE | 2019-07-10 13:47 | Infectious Diseases Prog Note ---
Assessment/Plan Assessment/Plan ASSESSMENT AND PLAN: 1. e.coli pna, mrsa pna, sepsis, shock, c.diff. +, leukocytosis, fevers, respiratory failure, ? sbp - vancomycin, zosyn and po vancomycin - f/u on labs and chest x-ray - supportive are, paracentesis as indicated 2. GI bleed. 3. Anemia. 4. H. pylori infection. 5. Diabetes. 6. Esophageal varices. 7. Respiratory failure. 8. Anemia and thrombocytopenia. 9. Liver cirrhosis. 10. Continue treatment per primary consultants. 11. No known drug allergies. 12. Social history is negative. 13. Family history is noncontributory. 14. MAR was noted. 15. Case was discussed with RN. 16. Case was discussed with Dr. Hunter 17. mrsa colonization Subjective Constitutional: Denies: fever HEENT: Reports: congestion - mild Respiratory: Reports: shortness of breath - mild Cardiovascular: Denies: chest pain Gastrointestinal/Abdominal: Reports: other - no diarrhea per RN; Denies: nausea , vomiting Allergies: Coded Allergies: No Known Allergies (Unverified , 06/27/19) Objective Vital Signs Last 24 Hour Vital Signs Date Time Temp Pulse Resp B/P (MAP) Pulse Ox O2 Delivery O2 Flow Rate FiO2 07/10/19 09:00 Nasal Cannula 2.0 07/10/19 08:00 98.0 100 20 103/69 (80) 95 07/10/19 08:00 100 07/10/19 04:00 98 07/10/19 04:00 97.5 102 18 116/61 (79) 97 07/10/19 00:00 98 07/10/19 00:00 97.9 100 20 127/78 (94) 97 07/09/19 21:00 Nasal Cannula 2.0 07/09/19 20:00 97.4 100 18 112/68 (83) 98 07/09/19 20:00 100 07/09/19 16:00 97.7 95 22 117/72 (87) 98 07/09/19 15:17 97 Height (Feet): 5 Height (Inches): 2.00 Weight (Pounds): 160 General Appearance: no acute distress HEENT: normocephalic, atraumatic, anicteric Respiratory/Chest: crackles/rales, rhonchi - bilaterally Cardiovascular: normal rate, regular rhythm Abdomen: normal bowel sounds, soft, non tender, no organomegaly Genitourinary: other - + jackson Objective 06/30/19 - chest x-ray - IMPRESSION: 1. Endotracheal tube has been pulled back and is now 2 cm above the halima in good position. 2. Improved lung volumes. Mild increased vascular interstitial prominence. Abdominal US: Impression: Evidence of hepatic cirrhosis, with coarsened hepatic echogenicity and surface nodularity Evidence of portal hypertension, with ascites, hepatic hilar varices, and abnormal portal venous flow No gallstones. Gallbladder wall is markedly thickened. This is probably edema due to the hepatic abnormalities. Acalculous acute cholecystitis or cholecystitis secondary to occult stone disease excludable, and hepatobiliary nuclear scan could be considered if there is high clinical suspicion Left renal cyst Node inability to visualize the pancreas and portions of the abdominal aorta Chest x-ray - 07/03/19 - Impression: New/increased bilateral basilar atelectatic changes and possible right basilar consolidation, over 3 days Other findings as noted 07/07/19 - chest x-ray - IMPRESSION: 1. Interval removal of endotracheal tube. 2. Right-sided PICC with the catheter tip in the region of the right atrium. 3. Cardiomegaly. 4. Low lung volumes, which may be related to shallow inspiration. 5. Subsegmental atelectasis versus infiltrates in bilateral lung bases, unchanged. Microbiology Date/Time Source Procedure Growth Status 07/08/19 08:34 Sputum Gram Stain - Final Resulted 07/08/19 08:34 Sputum Culture - Preliminary Escherichia Coli Resulted Laboratory Tests Test 07/10/19 00:50 07/10/19 05:00 Vancomycin Level Trough 16.4 ug/mL (5.0-12.0) H White Blood Count 17.1 K/UL (4.8-10.8) H Red Blood Count 3.20 M/UL (4.20-5.40) L Hemoglobin 10.0 G/DL (12.0-16.0) L Hematocrit 30.9 % (37.0-47.0) L Mean Corpuscular Volume 97 FL (80-99) # Mean Corpuscular Hemoglobin 31.1 PG (27.0-31.0) H Mean Corpuscular Hemoglobin Concent 32.2 G/DL (32.0-36.0) Red Cell Distribution Width 20.5 % (11.6-14.8) H Platelet Count 77 K/UL (150-450) L Mean Platelet Volume 6.3 FL (6.5-10.1) L Neutrophils (%) (Auto) % (45.0-75.0) Lymphocytes (%) (Auto) % (20.0-45.0) Monocytes (%) (Auto) % (1.0-10.0) Eosinophils (%) (Auto) % (0.0-3.0) Basophils (%) (Auto) % (0.0-2.0) Differential Total Cells Counted 100 Neutrophils % (Manual) 95 % (45-75) H Lymphocytes % (Manual) 3 % (20-45) L Monocytes % (Manual) 2 % (1-10) Eosinophils % (Manual) 0 % (0-3) Basophils % (Manual) 0 % (0-2) Band Neutrophils 0 % (0-8) Platelet Estimate Decreased L Platelet Morphology Normal Hypochromasia 1+ Anisocytosis 2+ Prothrombin Time 20.9 SEC (9.30-11.50) H Prothromb Time International Ratio 2.0 (0.9-1.1) H Activated Partial Thromboplast Time 60 SEC (23-33) H Sodium Level 136 MMOL/L (136-145) Potassium Level 4.4 MMOL/L (3.5-5.1) Chloride Level 108 MMOL/L (98-107) H Carbon Dioxide Level 19 MMOL/L (21-32) L Anion Gap 9 mmol/L (5-15) Blood Urea Nitrogen 26 mg/dL (7-18) H Creatinine 0.7 MG/DL (0.55-1.30) Estimat Glomerular Filtration Rate > 60 mL/min (>60) Glucose Level 99 MG/DL (74-106) Calcium Level 7.7 MG/DL (8.5-10.1) L Phosphorus Level 2.6 MG/DL (2.5-4.9) Magnesium Level 1.7 MG/DL (1.8-2.4) L Total Bilirubin 10.3 MG/DL (0.2-1.0) H Direct Bilirubin 7.5 MG/DL (0.0-0.3) H Aspartate Amino Transf (AST/SGOT) 60 U/L (15-37) H Alanine Aminotransferase (ALT/SGPT) 84 U/L (12-78) H Alkaline Phosphatase 137 U/L (46-116) H Total Protein 4.7 G/DL (6.4-8.2) L Albumin 1.4 G/DL (3.4-5.0) L Globulin 3.3 g/dL Albumin/Globulin Ratio 0.4 (1.0-2.7) L Current Medications Medications (Trade) Dose Ordered Sig/Naseem Route PRN Reason Start Time Stop Time Status Last Admin Dose Admin Cefepime HCl 2 gm/ Dextrose 55 ml @ 110 mls/hr EVERY 12 HOURS IVPB 07/09/19 17:00 07/16/19 16:59 07/10/19 11:27 Chlorhexidine Gluconate (Mer-Hex 2%) 1 applic DAILY@2000 TOPIC 07/04/19 20:00 08/01/19 19:59 07/09/19 21:11 Dextrose (Dextrose 50%) 25 ml Q30M PRN IV Hypoglycemia 07/04/19 16:00 07/28/19 04:59 Dextrose (Dextrose 50%) 50 ml Q30M PRN IV Hypoglycemia 07/04/19 16:00 07/28/19 04:59 Famotidine (Pepcid I.v.) 20 mg Q12HR IVP 07/04/19 21:00 08/01/19 20:59 07/10/19 10:00 Insulin Aspart (NovoLOG) BEFORE MEALS AND HS SUBQ 07/04/19 16:30 07/28/19 06:29 07/09/19 21:26 Metronidazole 100 ml @ 100 mls/hr Q8HR IVPB 07/07/19 14:00 07/13/19 13:59 07/10/19 13:02 Morphine Sulfate (Morphine Sulfate) 2 mg Q4H PRN IVP For Pain 07/04/19 15:43 07/11/19 15:42 Ondansetron HCl (Zofran) 4 mg Q6H PRN IVP Nausea & Vomiting 07/04/19 15:43 08/03/19 15:42 Sodium Chloride 1,000 ml @ 50 mls/hr Q20H IV 07/04/19 15:42 08/03/19 15:41 07/10/19 12:54 Vancomycin HCl (Firvanq) 125 mg Q6HR ORAL 07/09/19 18:00 07/16/19 17:59 07/10/19 13:15 Vancomycin HCl (Vanco rx to dose) 1 ea DAILY PRN MISC Per rx protocol 07/05/19 09:00 08/01/19 12:29 Vancomycin HCl 750 mg/Sodium Chloride 275 ml @ 183.333 mls/hr Q12H IVPB 07/08/19 14:00 07/13/19 13:59 07/10/19 02:11 Jay Hurtado MD Jul 10, 2019 13:47
--- NOTE | 2019-07-10 14:26 | NUR ---
*--* INSURANCE *--* UPDATED CLINICALS AND REVIEWS HAVE BEEN FAXED TO: ERICKA/CHAZ FULLY DELEGATED TO [facility]AN[facility] F/S FAXED TO SHANICE NCM: AKUA P- [phone] F- [phone]...........REVIEW/ CLINICAL
--- NOTE | 2019-07-10 15:01 | Pre-Procedure Note/Attestation ---
Pre-Procedure Note/Attestation Complete Prior to Procedure Planned Procedure: not applicable Procedure Narrative: paracentesis Indications for Procedure Pre-Operative Diagnosis: ascites Attestation I attest that I discussed the nature of the procedure; its benefits; risks and complications; and alternatives (and the risks and benefits of such alternatives ), prior to the procedure, with the patient (or the patient's legal manufacturers service representative). I attest that, if there was a reasonable possibility of needing a blood transfusion, the patient (or the patient's legal manufacturers service representative) was given the [facility] standardized written summary, pursuant to the [place] [employer] Blood Safety Act ([place] Health and Safety Code # 1645, as amended). I attest that I re-evaluated the patient just prior to the surgery and that there has been no change in the patient's H&P, except as documented below: Discussed in person with pt's. granddaughter Corey Hopper MD Jul 10, 2019 15:01
--- NOTE | 2019-07-10 15:02 | Brief Operative Note ---
Immediate Post Operative Note Operative Note Pre-op Diagnosis: ascites Procedure: paracentesis Post-op Diagnosis: same as pre-op Surgeon: Domenic Miranda Specimen: none Complications: none Fluids: none Implant(s) used?: No Corey Miranda MD Jul 10, 2019 15:02
--- NOTE | 2019-07-10 15:29 | NUR ---
CASE MANAGEMENT: REVIEW 07/07/2019 SI:ACUTE GI BLEED T 97.5 HR 102 RR 19 B/P 116/75 SATS 98% ON 2L/NC WBC 13.1 PLT 48 CL 111 CO2 19 BUN 19 GLU 153 CA 6.9 TBILI 5.7 DBILI 4.1 AST 47 ALT 121 ALP 126 IS: PROTONIX 25 mL/HR IVF @ 50 mL/HR CEFTRIAXONE IV QD INSULIN ASPART SUBQ AC/HS FLAGYL IV Q8H VANCO IV Q24H VANCO PO Q6H TELE DCP: PATIENT TO BE DISCHARGED TO HOME ONCE MEDICALLY CLEARED. 07/08/2019 SI:ACUTE GI BLEED T 97.1 HR 102 RR 16 B/P 125/70 SATS 97% ON 2L/NC WBC 16.5 CL 109 BUN 20 CA 7.5 TBILI 7.6 DBILI 5.5 AST 55 ALT 113 ALP 144 IS: PROTONIX 25 mL/HR IVF @ 50 mL/HR CEFTRIAXONE IV QD INSULIN ASPART SUBQ AC/HS FLAGYL IV Q8H VANCO IV Q24H VANCO PO Q6H TELE DCP: PATIENT TO BE DISCHARGED TO HOME ONCE MEDICALLY CLEARED. 07/08/2019 SI:ACUTE GI BLEED T 97.1 HR 102 RR 16 B/P 125/70 SATS 97% ON 2L/NC WBC 16.5 CL 109 BUN 20 CA 7.5 TBILI 7.6 DBILI 5.5 AST 55 ALT 113 ALP 144 IS: PROTONIX 25 mL/HR IVF @ 50 mL/HR CEFTRIAXONE IV QD INSULIN ASPART SUBQ AC/HS FLAGYL IV Q8H VANCO IV Q24H VANCO PO Q6H TELE DCP: PATIENT TO BE DISCHARGED TO HOME ONCE MEDICALLY CLEARED. 07/09/2019 SI:ACUTE GI BLEED T 97.5 HR 99 RR 22 B/P 107/71 SATS 97% ON 2L/NC CL 109 CO2 20 BUN 23 CA 7.9 TBILI 9.5 DBILI 7.1 AST 63 ALT 96 ALP 150 IS: PROTONIX 25 mL/HR IVF @ 50 mL/HR CEFTRIAXONE IV QD INSULIN ASPART SUBQ AC/HS FLAGYL IV Q8H VANCO IV Q24H VANCO PO Q6H TELE DCP: PATIENT TO BE DISCHARGED TO HOME ONCE MEDICALLY CLEARED. 07/10/2019 SI:ACUTE GI BLEED T 98 HR 100 RR 20 B/P 103/69 SATS 95% ON 2L/NC CL 108 BUN 26 CA 7.7 MG 1.7 TBILI 10.3 DBILI 7.5 AST 60 ALT 84 ALP 137 IS: PROTONIX 25 mL/HR IVF @ 50 mL/HR CEFTRIAXONE IV QD INSULIN ASPART SUBQ AC/HS FLAGYL IV Q8H VANCO IV Q24H VANCO PO Q6H TELE DCP: PATIENT TO BE DISCHARGED TO HOME ONCE MEDICALLY CLEARED.
[2019-07-10 16:00] VITALS: BP 108/61
--- NOTE | 2019-07-10 16:15 | NUR ---
Social Service Note MOOKIE left a message for patient's dgt Sara Dawson [phone] as a follow up to the discussion they had with Dr. Foley regarding the treatment plan of care and code status. Awaiting return call. Will continue to follow up. Addendum: 07/10/19 at 1701 by SOFIA EATON MOOKIE and CM coordinator spoke with patient's dgt Sara. CM coordinator provided Amharic translation. Sara states children are in agreement with DNR/DNI and comfort focused care. Sara states her son Palmer Henderson will be the person to sign the POLST. Hospice discussed. Sara appeared interested in hospice services and will discuss with her siblings this evening. Hospice discussed both at home and in SNF. MOOKIE and CM coordinator will meet with family tomorrow at bedside to discuss further. Will inform Dr. Foley.
--- NOTE | 2019-07-10 16:29 | Diagnostic Imaging Report ---
Indications: Ascites, abdominal pain Technique: Ultrasound used to localize optimal puncture site. Sterile prepping and draping right lower quadrant. Local anesthesia with 1% lidocaine. Under real-time ultrasound guidance, puncture peritoneal space using paracentesis needle. Stylet removed. Catheter placed to vacuum bottle suction. Total 5.4 liters of clear yellow fluid aspirated. Patient tolerated procedure well, without immediate complication. Findings: Followup sonography demonstrates complete resolution of peritoneal fluid. Impression: Successful ultrasound-guided paracentesis, yielding 5.4 liters of fluid
--- NOTE | 2019-07-10 17:23 | NUR ---
NURSE NOTES: US Paracentesis done, 5.4L of fluid out.
--- NOTE | 2019-07-10 18:18 | Surgery Progress Note ---
Surgery Progress Note Subjective Additional Comments worsening leukocytosis worsening lft's hepatic decompensation not eating much jackson in plce with good urine output Objective Last 24 Hour Vital Signs Date Time Temp Pulse Resp B/P (MAP) Pulse Ox O2 Delivery O2 Flow Rate FiO2 07/10/19 16:00 93 07/10/19 16:00 97.5 100 20 108/61 (77) 96 07/10/19 12:00 99 07/10/19 09:00 Nasal Cannula 2.0 07/10/19 08:00 98.0 100 20 103/69 (80) 95 07/10/19 08:00 100 07/10/19 07:05 95 Nasal Cannula 2.0 28 07/10/19 04:00 98 07/10/19 04:00 97.5 102 18 116/61 (79) 97 07/10/19 00:00 98 07/10/19 00:00 97.9 100 20 127/78 (94) 97 07/09/19 21:00 Nasal Cannula 2.0 07/09/19 20:00 97.4 100 18 112/68 (83) 98 07/09/19 20:00 100 I&O Intake and Output 07/09/19 07/10/19 19:00 07:00 Intake Total 820 ml Output Total 3900 ml 600 ml Balance -3080 ml -600 ml Intake Oral 120 ml Blood Product 500 ml Other 200 ml Output Urine Total 400 ml 600 ml Other 3500 ml # Voids 3 # Bowel Movements 1 1 Cardiovascular: RSR Respiratory: clear Abdomen: soft, distended, non-tender, present bowel sounds Extremities: no cyanosis Laboratory Tests Test 07/10/19 00:50 07/10/19 05:00 Vancomycin Level Trough 16.4 ug/mL (5.0-12.0) H White Blood Count 17.1 K/UL (4.8-10.8) H Red Blood Count 3.20 M/UL (4.20-5.40) L Hemoglobin 10.0 G/DL (12.0-16.0) L Hematocrit 30.9 % (37.0-47.0) L Mean Corpuscular Volume 97 FL (80-99) # Mean Corpuscular Hemoglobin 31.1 PG (27.0-31.0) H Mean Corpuscular Hemoglobin Concent 32.2 G/DL (32.0-36.0) Red Cell Distribution Width 20.5 % (11.6-14.8) H Platelet Count 77 K/UL (150-450) L Mean Platelet Volume 6.3 FL (6.5-10.1) L Neutrophils (%) (Auto) % (45.0-75.0) Lymphocytes (%) (Auto) % (20.0-45.0) Monocytes (%) (Auto) % (1.0-10.0) Eosinophils (%) (Auto) % (0.0-3.0) Basophils (%) (Auto) % (0.0-2.0) Differential Total Cells Counted 100 Neutrophils % (Manual) 95 % (45-75) H Lymphocytes % (Manual) 3 % (20-45) L Monocytes % (Manual) 2 % (1-10) Eosinophils % (Manual) 0 % (0-3) Basophils % (Manual) 0 % (0-2) Band Neutrophils 0 % (0-8) Platelet Estimate Decreased L Platelet Morphology Normal Hypochromasia 1+ Anisocytosis 2+ Prothrombin Time 20.9 SEC (9.30-11.50) H Prothromb Time International Ratio 2.0 (0.9-1.1) H Activated Partial Thromboplast Time 60 SEC (23-33) H Sodium Level 136 MMOL/L (136-145) Potassium Level 4.4 MMOL/L (3.5-5.1) Chloride Level 108 MMOL/L (98-107) H Carbon Dioxide Level 19 MMOL/L (21-32) L Anion Gap 9 mmol/L (5-15) Blood Urea Nitrogen 26 mg/dL (7-18) H Creatinine 0.7 MG/DL (0.55-1.30) Estimat Glomerular Filtration Rate > 60 mL/min (>60) Glucose Level 99 MG/DL (74-106) Calcium Level 7.7 MG/DL (8.5-10.1) L Phosphorus Level 2.6 MG/DL (2.5-4.9) Magnesium Level 1.7 MG/DL (1.8-2.4) L Total Bilirubin 10.3 MG/DL (0.2-1.0) H Direct Bilirubin 7.5 MG/DL (0.0-0.3) H Aspartate Amino Transf (AST/SGOT) 60 U/L (15-37) H Alanine Aminotransferase (ALT/SGPT) 84 U/L (12-78) H Alkaline Phosphatase 137 U/L (46-116) H Total Protein 4.7 G/DL (6.4-8.2) L Albumin 1.4 G/DL (3.4-5.0) L Globulin 3.3 g/dL Albumin/Globulin Ratio 0.4 (1.0-2.7) L Plan Problems: (1) Cirrhosis (2) Varices, esophageal (3) GI bleed Assessment & Plan: 69F with acute GI bleed. etiology likely prior varices anemia on admission and transfused extubated and improving downgraded comfortable EGD noted okay for diet iv fluids PPI worsening hepatic dysfunction decompensating prognosis still guarded d/c planning will follow with recs thank you (4) Acute GI bleeding Zaid Wong Jul 10, 2019 18:18
--- NOTE | 2019-07-10 19:30 | NUR ---
NURSE NOTES: Received patient. Awake alert, oriented x 1. Slovenian speaking. Family at bedside. PICC on TIANNA, dressing intact, 1/2 NS infusing at 50ml/hr. Rouse catheter intact. Bilateral upper and lower extremities edema, pitting 2+ on the hands, 3+ on both feet. Abdomen distended and firm. On 2L NC, no s/s of respiratory distress. Bed in low position, locked, bed alarm on, call light within reach.
--- NOTE | 2019-07-10 19:41 | NUR ---
HAND-OFF: Report given to ROMAIN Cheng.Endorsed plan of care.
[2019-07-10 20:00] VITALS: BP 98/56
[2019-07-10] MEDS: Dyna-Hex 2% Top Sol 2oz TOPIC SCH (21:32)
[2019-07-11] VITALS: BP 99/46
[2019-07-11] MEDS: Vancomycin 750 MG in NS 275 ML IVPB SCH (01:43)
[2019-07-11 04:00] VITALS: BP 96/53
[2019-07-11] MEDS: Vancomycin oral 125mg/2.5ml ORAL SCH ×3 (05:14→17:22)
[2019-07-11] MEDS: NovoLOG Insulin Flexpen SUBQ SCH ×4 (06:06→21:53)
--- NOTE | 2019-07-11 07:05 | NUR ---
NURSE NOTES: Received report from ROMAIN Cheng in bed, awake and resting in bed. Pt denies any pain at this time, in no acute distress. IV line intact and patent. IV fluid and Zosyn running. Bed in lowest position with bedside rails up x3, Brakes engaged for safety. Call light within reach. Will continue with the plan of care.
[2019-07-11 07:22] LABS: HEMATOCRIT 30.5 % (37.0-47.0); HEMOGLOBIN 9.8 G/DL (12.0-16.0); MEAN CORPUSCULAR VOLUME 97 FL (80-99); PLATELET COUNT 62 K/UL (150-450); RED BLOOD COUNT 3.13 M/UL (4.20-5.40); RED CELL DISTRIBUTION WIDTH 20.6 % (11.6-14.8); WHITE BLOOD COUNT 12.9 K/UL (4.8-10.8)
--- NOTE | 2019-07-11 07:39 | NUR ---
HAND-OFF: Report given to Imer HOYOS.
[2019-07-11 08:00] VITALS: BP 97/54
[2019-07-11 08:02] LABS: ALANINE AMINOTRANSFERASE 66 U/L (12-78); ALBUMIN 1.2 G/DL (3.4-5.0); ALBUMIN/GLOBULIN RATIO 0.4 (1.0-2.7); ALKALINE PHOSPHATASE 133 U/L (46-116); ANION GAP 8 mmol/L (5-15); ASPARTATE AMINO TRANSFERASE 57 U/L (15-37); BILIRUBIN,TOTAL 11.6 MG/DL (0.2-1.0); BLOOD UREA NITROGEN 27 mg/dL (7-18); CALCIUM 7.8 MG/DL (8.5-10.1); CARBON DIOXIDE 19 MMOL/L (21-32); CHLORIDE 108 MMOL/L (98-107); CREATININE 0.8 MG/DL (0.55-1.30); POTASSIUM 4.3 MMOL/L (3.5-5.1); SODIUM 135 MMOL/L (136-145)
[2019-07-11 08:06] LABS: % IRON SATURATION 17 % (15-50); BILIRUBIN,DIRECT 8.5 MG/DL (0.0-0.3); IRON 19 ug/dL (50-175); TOTAL IRON BINDING CAPACITY 110 ug/dL (250-450)
--- NOTE | 2019-07-11 08:36 | Diagnostic Imaging Report ---
Indication: Shortness of breath Technique: One view of the chest Comparison: 07/07/2019 Findings: There is new or increased pleural fluid at the right lung base. There is increased interstitial congestion bilaterally. Atelectasis in the left lower lung persists. Right arm PICC is again demonstrated Impression: New or increased right pleural fluid, over 4 days Increasing interstitial congestion
--- NOTE | 2019-07-11 08:42 | Cardiology Progress Note ---
Assessment/Plan Status: stable Assessment/Plan Assessment/Plan Status: stable Assessment/Plan: Problems: (1) Varices, esophageal (2) Cirrhosis (3) GI bleed (4) Acute GI bleeding (5) Elevated troponin (6) Diastolic dysfunction PLAN: Slowly improving Trend Troponin/EKG - likely demand ischemia from anemia/emesis Transfuse >7 Echo reviewed, normal LV function Stress test when stable prior to d/c or outpatient Monitor H/H, transfuse prn s/p EGD with banding x7 Hold aspirin Off pressors and stable on floors Continue abx per ID Continue PPI BID Subjective Cardiovascular: Reports: no symptoms Respiratory: Reports: no symptoms Gastrointestinal/Abdominal: Reports: no symptoms Genitourinary: Reports: no symptoms Subjective Mild tachycardia, BP stable, on 2 liters NC, no acute events, nursing notes reviewed, AAOx1, tolerating PO, WBC coming down, LFT remains elevated, pitting edema and distended abdomen noted. Objective Last 24 Hour Vital Signs Date Time Temp Pulse Resp B/P (MAP) Pulse Ox O2 Delivery O2 Flow Rate FiO2 07/11/19 04:00 97.4 91 20 96/53 (67) 96 07/11/19 04:00 93 07/11/19 00:00 94 07/11/19 00:00 97.6 87 18 99/46 (63) 100 07/10/19 21:00 Nasal Cannula 2.0 07/10/19 20:00 98.0 101 18 98/56 (70) 92 07/10/19 20:00 100 07/10/19 16:00 93 07/10/19 16:00 97.5 100 20 108/61 (77) 96 07/10/19 12:00 99 07/10/19 09:00 Nasal Cannula 2.0 General Appearance: no apparent distress, lethargic EENT: PERRL/EOMI, normal ENT inspection, TMs normal, pale conjunctivae Neck: non-tender, normal alignment, supple, JVD Rhythm: NSR Cardiovascular: normal peripheral pulses, normal rate, gallop/S4 Respiratory/Chest: lungs clear Abdomen: hypoactive bowel sounds, distended, tender, hepatomegaly Extremities: normal range of motion, non-tender, normal inspection, no swelling , moderate edema Neurologic: disoriented, unresponsiveness Intake and Output 07/10/19 07/11/19 18:59 06:59 Intake Total 120 ml Output Total 250 ml 150 ml Balance -130 ml -150 ml Intake Oral 120 ml Output Urine Total 250 ml 150 ml Laboratory Tests Test 07/11/19 05:50 White Blood Count 12.9 K/UL (4.8-10.8) H Red Blood Count 3.13 M/UL (4.20-5.40) L Hemoglobin 9.8 G/DL (12.0-16.0) L Hematocrit 30.5 % (37.0-47.0) L Mean Corpuscular Volume 97 FL (80-99) Mean Corpuscular Hemoglobin 31.5 PG (27.0-31.0) H Mean Corpuscular Hemoglobin Concent 32.3 G/DL (32.0-36.0) Red Cell Distribution Width 20.6 % (11.6-14.8) H Platelet Count 62 K/UL (150-450) L Mean Platelet Volume 6.6 FL (6.5-10.1) Neutrophils (%) (Auto) % (45.0-75.0) Lymphocytes (%) (Auto) % (20.0-45.0) Monocytes (%) (Auto) % (1.0-10.0) Eosinophils (%) (Auto) % (0.0-3.0) Basophils (%) (Auto) % (0.0-2.0) Differential Total Cells Counted 100 Neutrophils % (Manual) 95 % (45-75) H Lymphocytes % (Manual) 2 % (20-45) L Monocytes % (Manual) 3 % (1-10) Eosinophils % (Manual) 0 % (0-3) Basophils % (Manual) 0 % (0-2) Band Neutrophils 0 % (0-8) Platelet Estimate Decreased L Platelet Morphology Normal Hypochromasia 2+ Anisocytosis 2+ Prothrombin Time 20.9 SEC (9.30-11.50) H Prothromb Time International Ratio 2.0 (0.9-1.1) H Sodium Level 135 MMOL/L (136-145) L Potassium Level 4.3 MMOL/L (3.5-5.1) Chloride Level 108 MMOL/L (98-107) H Carbon Dioxide Level 19 MMOL/L (21-32) L Anion Gap 8 mmol/L (5-15) Blood Urea Nitrogen 27 mg/dL (7-18) H Creatinine 0.8 MG/DL (0.55-1.30) Estimat Glomerular Filtration Rate > 60 mL/min (>60) Glucose Level 84 MG/DL (74-106) Calcium Level 7.8 MG/DL (8.5-10.1) L Iron Level 19 ug/dL (50-175) L Total Iron Binding Capacity 110 ug/dL (250-450) L Percent Iron Saturation 17 % (15-50) Unsaturated Iron Binding 91 ug/dL (112-346) L Total Bilirubin 11.6 MG/DL (0.2-1.0) H Direct Bilirubin 8.5 MG/DL (0.0-0.3) H Aspartate Amino Transf (AST/SGOT) 57 U/L (15-37) H Alanine Aminotransferase (ALT/SGPT) 66 U/L (12-78) Alkaline Phosphatase 133 U/L (46-116) H Total Protein 4.5 G/DL (6.4-8.2) L Albumin 1.2 G/DL (3.4-5.0) L Globulin 3.3 g/dL Albumin/Globulin Ratio 0.4 (1.0-2.7) L Alpha Fetoprotein Pending Anti-Nuclear Antibody Screen Pending F-Actin IgG Antibody Pending Winston De La Torre MD Jul 11, 2019 08:42
--- NOTE | 2019-07-11 08:43 | NUR ---
CASE MANAGEMENT: REVIEW 07/11/2019 SI:ACUTE GI BLEED T 97.4 HR 93 RR 20 B/P 96/53 SATS 96% ON 2L/NC WBC 12.9 NA 135 CL 108 CO2 19 BUN 47 CA 7.8 TBILI 11.6 DBILI 8.5 AST 57 ALP 133 IS: PROTONIX 25 mL/HR IVF @ 50 mL/HR CEFTRIAXONE IV QD INSULIN ASPART SUBQ AC/HS FLAGYL IV Q8H VANCO IV Q24H VANCO PO Q6H TELE DCP: PATIENT TO BE DISCHARGED TO HOME ONCE MEDICALLY CLEARED.
--- NOTE | 2019-07-11 08:49 | Pulmonology Progress Note ---
Assessment/Plan Assessment/Plan IMPRESSION: 1. Respiratory failure. Resolved. Extubated 07/03/19 2. Upper GI bleed, likely gastric varices. S/p EGD 3. Diabetes mellitus. 4. Anemia. Hgb stable 5. Thrombocytopenia; 6. Likely hepatic encephalopathy; continue lactulose; has C diff + DISCUSSION: Low flow O2 Continue lactulose Abx for C diff Slowly improving James Zeng M.D. Subjective Interval Events: s/p paracentesis Constitutional: Reports: no symptoms HEENT: Repors: no symptoms Respiratory: Reports: no symptoms Cardiovascular: Reports: no symptoms Gastrointestinal/Abdominal: Reports: no symptoms Allergies: Coded Allergies: No Known Allergies (Unverified , 06/27/19) Objective Last 24 Hour Vital Signs Date Time Temp Pulse Resp B/P (MAP) Pulse Ox O2 Delivery O2 Flow Rate FiO2 07/11/19 04:00 97.4 91 20 96/53 (67) 96 07/11/19 04:00 93 07/11/19 00:00 94 07/11/19 00:00 97.6 87 18 99/46 (63) 100 07/10/19 21:00 Nasal Cannula 2.0 07/10/19 20:00 98.0 101 18 98/56 (70) 92 07/10/19 20:00 100 07/10/19 16:00 93 07/10/19 16:00 97.5 100 20 108/61 (77) 96 07/10/19 12:00 99 07/10/19 09:00 Nasal Cannula 2.0 Intake and Output 07/10/19 07/11/19 18:59 06:59 Intake Total 120 ml Output Total 250 ml 150 ml Balance -130 ml -150 ml Intake Oral 120 ml Output Urine Total 250 ml 150 ml General Appearance: no acute distress HEENT: normocephalic Respiratory/Chest: chest wall non-tender Cardiovascular: normal peripheral pulses Abdomen: normal bowel sounds Laboratory Tests 07/11/19 05:50: White Blood Count 12.9H, Red Blood Count 3.13L, Hemoglobin 9.8L, Hematocrit 30.5L, Mean Corpuscular Volume 97, Mean Corpuscular Hemoglobin 31.5H, Mean Corpuscular Hemoglobin Concent 32.3, Red Cell Distribution Width 20.6H, Platelet Count 62L, Mean Platelet Volume 6.6, Neutrophils (%) (Auto) , Lymphocytes (%) (Auto) , Monocytes (%) (Auto) , Eosinophils (%) (Auto) , Basophils (%) (Auto) , Differential Total Cells Counted 100, Neutrophils % ( Manual) 95H, Lymphocytes % (Manual) 2L, Monocytes % (Manual) 3, Eosinophils % ( Manual) 0, Basophils % (Manual) 0, Band Neutrophils 0, Platelet Estimate DecreasedL, Platelet Morphology Normal, Hypochromasia 2+, Anisocytosis 2+, Prothrombin Time 20.9H, Prothromb Time International Ratio 2.0H, Sodium Level 135L, Potassium Level 4.3, Chloride Level 108H, Carbon Dioxide Level 19L, Anion Gap 8, Blood Urea Nitrogen 27H, Creatinine 0.8, Estimat Glomerular Filtration Rate > 60, Glucose Level 84, Calcium Level 7.8L, Iron Level 19L, Total Iron Binding Capacity 110L, Percent Iron Saturation 17, Unsaturated Iron Binding 91L , Total Bilirubin 11.6H, Direct Bilirubin 8.5H, Aspartate Amino Transf (AST/SGOT ) 57H, Alanine Aminotransferase (ALT/SGPT) 66, Alkaline Phosphatase 133H, Total Protein 4.5L, Albumin 1.2L, Globulin 3.3, Albumin/Globulin Ratio 0.4L, Alpha Fetoprotein [Pending], Anti-Nuclear Antibody Screen [Pending], F-Actin IgG Antibody [Pending] Current Medications Medications (Trade) Dose Ordered Sig/Naseem Route PRN Reason Start Time Stop Time Status Last Admin Dose Admin Chlorhexidine Gluconate (Mer-Hex 2%) 1 applic DAILY@1999 TOPIC 07/04/19 20:00 08/01/19 19:59 07/10/19 21:32 Dextrose (Dextrose 50%) 25 ml Q30M PRN IV Hypoglycemia 07/04/19 16:00 07/28/19 04:59 Dextrose (Dextrose 50%) 50 ml Q30M PRN IV Hypoglycemia 07/04/19 16:00 07/28/19 04:59 Famotidine (Pepcid I.v.) 20 mg Q12HR IVP 07/04/19 21:00 08/01/19 20:59 07/11/19 08:19 Insulin Aspart (NovoLOG) BEFORE MEALS AND HS SUBQ 07/04/19 16:30 07/28/19 06:29 07/09/19 21:26 Morphine Sulfate (Morphine Sulfate) 2 mg Q4H PRN IVP For Pain 07/04/19 15:43 07/11/19 15:42 Ondansetron HCl (Zofran) 4 mg Q6H PRN IVP Nausea & Vomiting 07/04/19 15:43 08/03/19 15:42 Piperacillin Sod/ Tazobactam Sod 3.375 gm/Dextrose 100 ml @ 25 mls/hr EVERY 8 HOURS IVPB 07/10/19 14:00 07/15/19 13:59 07/11/19 05:11 Sodium Chloride 1,000 ml @ 50 mls/hr Q20H IV 07/04/19 15:42 08/03/19 15:41 07/11/19 08:19 Vancomycin HCl (Firvanq) 125 mg Q6HR ORAL 07/09/19 18:00 07/16/19 17:59 07/11/19 05:14 Vancomycin HCl (Vanco rx to dose) 1 ea DAILY PRN MISC Per rx protocol 07/05/19 09:00 08/01/19 12:29 Vancomycin HCl 750 mg/Sodium Chloride 275 ml @ 183.333 mls/hr Q12H IVPB 07/08/19 14:00 07/13/19 13:59 07/11/19 01:43 James Zeng MD Jul 11, 2019 08:49
--- NOTE | 2019-07-11 08:49 | NUR ---
INSURANCE REVIEWS FAXED TO SHANICE MCKOY: AKUA P- [phone] F- [phone]...........REVIEW/ CLINICAL
--- NOTE | 2019-07-11 10:10 | GI Progress Note ---
Assessment/Plan Problems: (1) Acute GI bleeding ICD Codes: K92.2 - Gastrointestinal hemorrhage, unspecified SNOMED: 58017185 (2) GI bleed ICD Codes: K92.2 - Gastrointestinal hemorrhage, unspecified SNOMED: 70095764 (3) Varices, esophageal ICD Codes: I85.00 - Esophageal varices without bleeding SNOMED: 30553697 (4) Cirrhosis ICD Codes: K74.60 - Unspecified cirrhosis of liver SNOMED: 64589726 Status: unchanged Status Narrative Discussed with Dr. Garcia. Assessment/Plan Assessment - Non alcoholic cirrhosis, rising bili - UGIB due to esophageal varicies s/p banding - C Diff, on IV flagyl (no oral access for PO vanco at this time) - Resp failure - anemia - lactic acidosis - leukocytosis - guarded - s/p paracentesis yielding approx 5 liters - MELD score 19 - LYRIC, SMA negative Recommendations - serial CBC - transfuse PRN to keep Hg > 7 - on diet - H2B - follow labs - may need repeat paracentesis - PT to ambulate - albumin - overall poor prognosis The patient was seen and examined at bedside and all new and available data was reviewed in the patients chart. I agree with the above findings, impression and plan. (Patient seen earlier today. Signature stamp does not reflect patient encounter time.). - Mina Garcia MD Subjective Gastrointestinal/Abdominal: Reports: no symptoms Subjective limited Objective Last 24 Hour Vital Signs Date Time Temp Pulse Resp B/P (MAP) Pulse Ox O2 Delivery O2 Flow Rate FiO2 07/11/19 04:00 97.4 91 20 96/53 (67) 96 07/11/19 04:00 93 07/11/19 00:00 94 07/11/19 00:00 97.6 87 18 99/46 (63) 100 07/10/19 21:00 Nasal Cannula 2.0 07/10/19 20:00 98.0 101 18 98/56 (70) 92 07/10/19 20:00 100 07/10/19 16:00 93 07/10/19 16:00 97.5 100 20 108/61 (77) 96 07/10/19 12:00 99 Intake and Output 07/10/19 07/11/19 19:00 07:00 Intake Total 120 ml Output Total 250 ml 150 ml Balance -130 ml -150 ml Intake Oral 120 ml Output Urine Total 250 ml 150 ml Laboratory Tests Test 07/11/19 05:50 White Blood Count 12.9 K/UL (4.8-10.8) H Red Blood Count 3.13 M/UL (4.20-5.40) L Hemoglobin 9.8 G/DL (12.0-16.0) L Hematocrit 30.5 % (37.0-47.0) L Mean Corpuscular Volume 97 FL (80-99) Mean Corpuscular Hemoglobin 31.5 PG (27.0-31.0) H Mean Corpuscular Hemoglobin Concent 32.3 G/DL (32.0-36.0) Red Cell Distribution Width 20.6 % (11.6-14.8) H Platelet Count 62 K/UL (150-450) L Mean Platelet Volume 6.6 FL (6.5-10.1) Neutrophils (%) (Auto) % (45.0-75.0) Lymphocytes (%) (Auto) % (20.0-45.0) Monocytes (%) (Auto) % (1.0-10.0) Eosinophils (%) (Auto) % (0.0-3.0) Basophils (%) (Auto) % (0.0-2.0) Differential Total Cells Counted 100 Neutrophils % (Manual) 95 % (45-75) H Lymphocytes % (Manual) 2 % (20-45) L Monocytes % (Manual) 3 % (1-10) Eosinophils % (Manual) 0 % (0-3) Basophils % (Manual) 0 % (0-2) Band Neutrophils 0 % (0-8) Platelet Estimate Decreased L Platelet Morphology Normal Hypochromasia 2+ Anisocytosis 2+ Prothrombin Time 20.9 SEC (9.30-11.50) H Prothromb Time International Ratio 2.0 (0.9-1.1) H Sodium Level 135 MMOL/L (136-145) L Potassium Level 4.3 MMOL/L (3.5-5.1) Chloride Level 108 MMOL/L (98-107) H Carbon Dioxide Level 19 MMOL/L (21-32) L Anion Gap 8 mmol/L (5-15) Blood Urea Nitrogen 27 mg/dL (7-18) H Creatinine 0.8 MG/DL (0.55-1.30) Estimat Glomerular Filtration Rate > 60 mL/min (>60) Glucose Level 84 MG/DL (74-106) Calcium Level 7.8 MG/DL (8.5-10.1) L Iron Level 19 ug/dL (50-175) L Total Iron Binding Capacity 110 ug/dL (250-450) L Percent Iron Saturation 17 % (15-50) Unsaturated Iron Binding 91 ug/dL (112-346) L Total Bilirubin 11.6 MG/DL (0.2-1.0) H Direct Bilirubin 8.5 MG/DL (0.0-0.3) H Aspartate Amino Transf (AST/SGOT) 57 U/L (15-37) H Alanine Aminotransferase (ALT/SGPT) 66 U/L (12-78) Alkaline Phosphatase 133 U/L (46-116) H Total Protein 4.5 G/DL (6.4-8.2) L Albumin 1.2 G/DL (3.4-5.0) L Globulin 3.3 g/dL Albumin/Globulin Ratio 0.4 (1.0-2.7) L Alpha Fetoprotein Pending Anti-Nuclear Antibody Screen Pending F-Actin IgG Antibody Pending Height (Feet): 5 Height (Inches): 2.00 Weight (Pounds): 146 General Appearance: WD/WN, no apparent distress, alert Cardiovascular: normal rate Respiratory/Chest: normal breath sounds, no respiratory distress Abdominal Exam: normal bowel sounds, non tender, soft, ascites Extremities: non-tender Luisana Walker NP Jul 11, 2019 10:10
[2019-07-11 12:00] VITALS: BP 104/63
--- NOTE | 2019-07-11 12:55 | General Progress Note ---
Assessment/Plan Status: unchanged, deteriorating Assessment/Plan: 69-year-old female with past medical history of liver cirrhosis without known etiology presents for hematemesis- overall worsening #Hypovolemic/ septic shock secondary to hematemesis- resolved off pressors, e.coli pna, mrsa pna, sepsis, c.diff. +, leukocytosis, fevers, respiratory failure, ? sbp -s/p PRBC, platelet transfusion on admission- Hemoglobin stable -GI consult, appreciate recs: EGD 06/29/2019, esophageal varices x7 banding. Blood in abdomen. A limited however no active bleeding noted -Continue to monitor Hb. PRBC if < 7 or if acute bleed with Hb < 8 -Surgery consult, appreciate recs -Cardiology consult, appreciate recs -Echo: ef wnl -prognosis guarded -IV zosyn, IV and PO vancomycin. WBC trending down ID consultation appreciated #Liver cirrhosis with esophageal varices MELD 19 , ? sbp -Status post EGD as above -PPI -s/p Octreotide drip -Monitor CBC and BMP -Patient denies alcohol use, family states reason for liver cirrhosis is unknown. Differentials include Saunders versus autoimmune causes. Hepatitis panel negative, LYRIC, anti-mitochondrial and F-actin igG negative. Acetaminophen level 3, -Right upper quadrant ultrasound: Reviewed, no gallstones -Continue lactulose -CEA normal -prognosis guarded, worsening bilirubin. worsening leukocytosis. Approaching fulminant liver failure. Needs transplant. Case discussed with GI GROUNDS WORKER Jarvis Whitfield and Dr. Maurer -Repeat paracentesis today for fluid removal #Hepatic encephalopathy -Continue lactulose as per above #Intubation for airway protection and encephalopathy, extubated 07/03 -Pulmonology consult, appreciate recs #Urinary retention -Continue Rouse for now due to poor mobility -Monitor ins and outs -UA negative #Elevated troponin, likely secondary to demand ischemia -Cardiology consulted, appreciate recs -Echo: Within normal limits -Troponins downtrended. #Lactic acidosis, improved # Physical deconditioning - PT evaluation -Advance diet # Disposition - PT evaluation recommends SNF and skilled therapy. - CM consult -poor prognosis -code status: full code for now, I discussed with daughter patient's condition today. She expressed to me patient would not want to be heavily resuscitated and rather peacefully. Provided family with MOLST from to discuss and make decisions. Time of this not may not reflect time of encounter. I spent 40 minutes during this encounter, 50 percent spent on counselling and care coordination Subjective Date patient seen: Jul 11, 2019 ROS Limited/Unobtainable: No Constitutional: Reports: weakness HEENT: Denies: no symptoms, eye pain, blurred vision, tearing, double vision, ear pain, ear discharge, nose pain, nose congestion, throat pain, throat swelling, mouth pain, mouth swelling, other Cardiovascular: Denies: no symptoms, chest pain, edema, irregular heart rate, lightheadedness, palpitations, syncope, other Respiratory: Reports: shortness of breath Gastrointestinal/Abdominal: Reports: abdomen distended Genitourinary: Denies: no symptoms, burning, discharge, frequency, flank pain, hematuria, incontinence, pain, urgency, other Neurologic/Psychiatric: Denies: no symptoms, anxiety, depressed, emotional problems, headache, numbness, paresthesia, pre-existing deficit, seizure, tingling, tremors, weakness, other Endocrine: Denies: no symptoms, excessive sweating, flushing, intolerance to cold, intolerance to heat, increased hunger, increased thirst, increased urine, unexplained weight gain, unexplained weight loss, other Hematologic/Lymphatic: Denies: no symptoms, anemia, easy bleeding, easy bruising, other Allergies: Coded Allergies: No Known Allergies (Unverified , 06/27/19) Subjective seen and examined s/p paracentesis afebrile wbc trending down liver enzymes worsening Objective Last 24 Hour Vital Signs Date Time Temp Pulse Resp B/P (MAP) Pulse Ox O2 Delivery O2 Flow Rate FiO2 07/11/19 09:00 Nasal Cannula 2.0 07/11/19 08:00 92 07/11/19 08:00 97.6 92 18 97/54 (68) 96 07/11/19 04:00 97.4 91 20 96/53 (67) 96 07/11/19 04:00 93 07/11/19 00:00 94 07/11/19 00:00 97.6 87 18 99/46 (63) 100 07/10/19 21:00 Nasal Cannula 2.0 07/10/19 20:00 98.0 101 18 98/56 (70) 92 07/10/19 20:00 100 07/10/19 16:00 93 07/10/19 16:00 97.5 100 20 108/61 (77) 96 Intake and Output 07/10/19 07/11/19 19:00 07:00 Intake Total 120 ml Output Total 250 ml 150 ml Balance -130 ml -150 ml Intake Oral 120 ml Output Urine Total 250 ml 150 ml Laboratory Tests 07/11/19 05:50: White Blood Count 12.9H, Red Blood Count 3.13L, Hemoglobin 9.8L, Hematocrit 30.5L, Mean Corpuscular Volume 97, Mean Corpuscular Hemoglobin 31.5H, Mean Corpuscular Hemoglobin Concent 32.3, Red Cell Distribution Width 20.6H, Platelet Count 62L, Mean Platelet Volume 6.6, Neutrophils (%) (Auto) , Lymphocytes (%) (Auto) , Monocytes (%) (Auto) , Eosinophils (%) (Auto) , Basophils (%) (Auto) , Differential Total Cells Counted 100, Neutrophils % ( Manual) 95H, Lymphocytes % (Manual) 2L, Monocytes % (Manual) 3, Eosinophils % ( Manual) 0, Basophils % (Manual) 0, Band Neutrophils 0, Platelet Estimate DecreasedL, Platelet Morphology Normal, Hypochromasia 2+, Anisocytosis 2+, Prothrombin Time 20.9H, Prothromb Time International Ratio 2.0H, Sodium Level 135L, Potassium Level 4.3, Chloride Level 108H, Carbon Dioxide Level 19L, Anion Gap 8, Blood Urea Nitrogen 27H, Creatinine 0.8, Estimat Glomerular Filtration Rate > 60, Glucose Level 84, Calcium Level 7.8L, Iron Level 19L, Total Iron Binding Capacity 110L, Percent Iron Saturation 17, Unsaturated Iron Binding 91L , Total Bilirubin 11.6H, Direct Bilirubin 8.5H, Aspartate Amino Transf (AST/SGOT ) 57H, Alanine Aminotransferase (ALT/SGPT) 66, Alkaline Phosphatase 133H, Total Protein 4.5L, Albumin 1.2L, Globulin 3.3, Albumin/Globulin Ratio 0.4L, Alpha Fetoprotein [Pending], Anti-Nuclear Antibody Screen [Pending], F-Actin IgG Antibody [Pending] Height (Feet): 5 Height (Inches): 2.00 Weight (Pounds): 146 Objective General Appearance: no distress EENT: PERRL/EOMI, +jaundice Neck: non-tender, normal alignment Cardiovascular: normal rate, regular rhythm Respiratory/Chest: lungs clear, normal breath sounds Abdomen: non tender, soft, distended, + ascites, weeping 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 Jul 11, 2019 12:55
--- NOTE | 2019-07-11 13:35 | NUR ---
RD ASSESSMENT & RECOMMENDATIONS SEE CARE ACTIVITY FOR COMPLETE ASSESSMENT DAILY ESTIMATED NEEDS: Needs based on Cirrhosis, pulmonary / 48kg 25-35 kcals/kg 8999-6560 total kcals 1-1.5 g protein/kg 48-72 g total protein 25-30 mL/kg 3957-1570 total fluid mLs NUTRITION DIAGNOSIS: * Swallowing difficulty R/T respiratory status as evidenced by orally intubated, unable to obtain GI access 2/2 esophageal varices- pt is now s/p extubation on oral diet w/ texture modifications. * Altered nutrition related lab values R/T DM, cirrhosis, GIB, clinical condition as evidenced by elev POC glu (232 252 260-> now improved), elev T bili (4.7->11.6), elev LFTs, low hgb (9.8), elev LA-> wnl. CURRENT DIET: CCHO LOW/ LOW NA liquify puree/ NTL PO DIET RECOMMENDATIONS: LOW NA, CCHO LOW/ texture per CHINESE IN[employer]CTOR ADDITIONAL RECOMMENDATIONS: * Calibrated bedscale wt for accurate cbw Bedscale wt of 146lbs vs family's stated wt of ~106lbs * Monitor liver fxn- T bili trending up * Monitor PO intake closely: improved this AM * Monitor lytes, replete as needed .
--- NOTE | 2019-07-11 14:07 | Surgery Progress Note ---
Surgery Progress Note Subjective Additional Comments leukocytosis improved anemia lft's worsening exam unchanged Objective Last 24 Hour Vital Signs Date Time Temp Pulse Resp B/P (MAP) Pulse Ox O2 Delivery O2 Flow Rate FiO2 07/11/19 09:00 Nasal Cannula 2.0 07/11/19 08:00 92 07/11/19 08:00 97.6 92 18 97/54 (68) 96 07/11/19 04:00 97.4 91 20 96/53 (67) 96 07/11/19 04:00 93 07/11/19 00:00 94 07/11/19 00:00 97.6 87 18 99/46 (63) 100 07/10/19 21:00 Nasal Cannula 2.0 07/10/19 20:00 98.0 101 18 98/56 (70) 92 07/10/19 20:00 100 07/10/19 16:00 93 07/10/19 16:00 97.5 100 20 108/61 (77) 96 I&O Intake and Output 07/10/19 07/11/19 19:00 07:00 Intake Total 120 ml Output Total 250 ml 150 ml Balance -130 ml -150 ml Intake Oral 120 ml Output Urine Total 250 ml 150 ml Cardiovascular: RSR Respiratory: clear Abdomen: soft, distended, non-tender, present bowel sounds Extremities: no edema, no tenderness, no cyanosis Laboratory Tests Test 07/11/19 05:50 07/11/19 13:30 White Blood Count 12.9 K/UL (4.8-10.8) H Red Blood Count 3.13 M/UL (4.20-5.40) L Hemoglobin 9.8 G/DL (12.0-16.0) L Hematocrit 30.5 % (37.0-47.0) L Mean Corpuscular Volume 97 FL (80-99) Mean Corpuscular Hemoglobin 31.5 PG (27.0-31.0) H Mean Corpuscular Hemoglobin Concent 32.3 G/DL (32.0-36.0) Red Cell Distribution Width 20.6 % (11.6-14.8) H Platelet Count 62 K/UL (150-450) L Mean Platelet Volume 6.6 FL (6.5-10.1) Neutrophils (%) (Auto) % (45.0-75.0) Lymphocytes (%) (Auto) % (20.0-45.0) Monocytes (%) (Auto) % (1.0-10.0) Eosinophils (%) (Auto) % (0.0-3.0) Basophils (%) (Auto) % (0.0-2.0) Differential Total Cells Counted 100 Neutrophils % (Manual) 95 % (45-75) H Lymphocytes % (Manual) 2 % (20-45) L Monocytes % (Manual) 3 % (1-10) Eosinophils % (Manual) 0 % (0-3) Basophils % (Manual) 0 % (0-2) Band Neutrophils 0 % (0-8) Platelet Estimate Decreased L Platelet Morphology Normal Hypochromasia 2+ Anisocytosis 2+ Prothrombin Time 20.9 SEC (9.30-11.50) H Prothromb Time International Ratio 2.0 (0.9-1.1) H Sodium Level 135 MMOL/L (136-145) L Potassium Level 4.3 MMOL/L (3.5-5.1) Chloride Level 108 MMOL/L (98-107) H Carbon Dioxide Level 19 MMOL/L (21-32) L Anion Gap 8 mmol/L (5-15) Blood Urea Nitrogen 27 mg/dL (7-18) H Creatinine 0.8 MG/DL (0.55-1.30) Estimat Glomerular Filtration Rate > 60 mL/min (>60) Glucose Level 84 MG/DL (74-106) Calcium Level 7.8 MG/DL (8.5-10.1) L Iron Level 19 ug/dL (50-175) L Total Iron Binding Capacity 110 ug/dL (250-450) L Percent Iron Saturation 17 % (15-50) Unsaturated Iron Binding 91 ug/dL (112-346) L Total Bilirubin 11.6 MG/DL (0.2-1.0) H Direct Bilirubin 8.5 MG/DL (0.0-0.3) H Aspartate Amino Transf (AST/SGOT) 57 U/L (15-37) H Alanine Aminotransferase (ALT/SGPT) 66 U/L (12-78) Alkaline Phosphatase 133 U/L (46-116) H Total Protein 4.5 G/DL (6.4-8.2) L Albumin 1.2 G/DL (3.4-5.0) L Globulin 3.3 g/dL Albumin/Globulin Ratio 0.4 (1.0-2.7) L Alpha Fetoprotein Pending Anti-Nuclear Antibody Screen Pending F-Actin IgG Antibody Pending Vancomycin Level Trough Pending Plan Problems: (1) Cirrhosis (2) Varices, esophageal (3) GI bleed Assessment & Plan: 69F with acute GI bleed. etiology likely prior varices anemia on admission and transfused extubated and improving downgraded comfortable EGD noted okay for diet iv fluids PPI worsening hepatic dysfunction decompensating prognosis still guarded d/c planning will follow with recs thank you (4) Acute GI bleeding Zaid Wong Jul 11, 2019 14:07
--- NOTE | 2019-07-11 15:12 | NUR ---
Social Service Note SW and CM Coordinator met with patient's dgt Sara and grandson Palmer to discuss treatment plan of care and to discuss POLST. POLST signed by grandson, indicating DNR/DNI, Comfort focused care, and no feeding tube. Family would like to take patient home under hospice. MOOKIE informed primary nurse who will contact MD for code status change and to obtain hospice consult. Will follow up.
--- NOTE | 2019-07-11 15:33 | NUR ---
WEEKLY SWALLOW / SPEECH THERAPY SUMMARY: SEEN FOR DYSPHAGIA, SEE SWALLOW EVAL REPORT. GOALS FOR INTAKE NOT MET PT WILL REFUSE (FEELS FULL) OR ONLY TAKE 50% OF LIQUIFIED PUREED LIKE NECTAR THICK SOUP DIET WITH POSTED PRECAUTIONS. NO OVERT ASP. NO MOD BARIUM SWALLOW TO DATE DUE TO SCHEDULING ISSUES GOALS MET FOR STAFF TRAINED/EDUCATED IN POSTED ASP PRECAUTIONS PLAN: CONTINUE WITH SWALLOW MANAGEMENT AND TX (SEE REPORT) PER MEDICAL RECORD CONTINUE WITH PO INTAKE OF COMFORT FEEDING (NO TUBE FEEDINGS) ON CURRENT DIET/LIQUIDS USING PRECAUTIONS.
[2019-07-11 16:00] VITALS: BP 98/51
[2019-07-11] MEDS: Vancomycin 500mg/D5W 110ml IVPB SCH ×2 (16:12)
--- NOTE | 2019-07-11 17:05 | Infectious Diseases Prog Note ---
Assessment/Plan Assessment/Plan ASSESSMENT AND PLAN: 1. esbl e.coli pna, mrsa pna, sepsis, shock, c.diff. +, leukocytosis, fevers, respiratory failure, ? sbp - vancomycin x 3 days more for mrsa pna tx - meropenem x 9 days more for esbl e.coli pna tx (was on zosyn previously, started on 07/10/19) - f/u on labs and chest x-ray - supportive are, paracentesis as indicated - poor prognosis, now DNR per RN 2. GI bleed. 3. Anemia. 4. H. pylori infection. 5. Diabetes. 6. Esophageal varices. 7. Respiratory failure. 8. Anemia and thrombocytopenia. 9. Liver cirrhosis. 10. Continue treatment per primary consultants. 11. No known drug allergies. 12. Social history is negative. 13. Family history is noncontributory. 14. MAR was noted. 15. Case was discussed with RN. 16. Case was discussed with Dr. Hunter 17. mrsa colonization Subjective Constitutional: Reports: fatigue; Denies: fever HEENT: Denies: congestion Respiratory: Denies: shortness of breath Cardiovascular: Denies: chest pain Gastrointestinal/Abdominal: Denies: nausea, vomiting, diarrhea Genitourinary: Reports: other - + jackson Neurologic: Denies: headache Skin: Denies: rash Hematologic: Denies: bleeding Musculoskeletal: Denies: pain Allergies: Coded Allergies: No Known Allergies (Unverified , 06/27/19) Objective Vital Signs Last 24 Hour Vital Signs Date Time Temp Pulse Resp B/P (MAP) Pulse Ox O2 Delivery O2 Flow Rate FiO2 07/11/19 12:00 91 07/11/19 12:00 98.4 91 18 104/63 (77) 5 07/11/19 09:00 Nasal Cannula 2.0 07/11/19 08:00 92 07/11/19 08:00 97.6 92 18 97/54 (68) 96 07/11/19 04:00 97.4 91 20 96/53 (67) 96 07/11/19 04:00 93 07/11/19 00:00 94 07/11/19 00:00 97.6 87 18 99/46 (63) 100 07/10/19 21:00 Nasal Cannula 2.0 07/10/19 20:00 98.0 101 18 98/56 (70) 92 07/10/19 20:00 100 Height (Feet): 5 Height (Inches): 2.00 Weight (Pounds): 146 General Appearance: no acute distress HEENT: normocephalic, atraumatic, supple, no JVD, other - + icterus Respiratory/Chest: no respiratory distress, no accessory muscle use, crackles/ rales, rhonchi - bilaterally Cardiovascular: normal rate, regular rhythm, no gallop/murmur Abdomen: distended, other - decreased bowel sounds Genitourinary: other - + jackson - urine slt cloudy Extremities: no cyanosis Skin: no rash Neurologic/Psychiatric: log sawyer II-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 Endotracheal tube has been pulled back and is now 2 cm above the halima in good position. 2. Improved lung volumes. Mild increased vascular interstitial prominence. Abdominal US: Impression: Evidence of hepatic cirrhosis, with coarsened hepatic echogenicity and surface nodularity Evidence of portal hypertension, with ascites, hepatic hilar varices, and abnormal portal venous flow No gallstones. Gallbladder wall is markedly thickened. This is probably edema due to the hepatic abnormalities. Acalculous acute cholecystitis or cholecystitis secondary to occult stone disease excludable, and hepatobiliary nuclear scan could be considered if there is high clinical suspicion Left renal cyst Node inability to visualize the pancreas and portions of the abdominal aorta Chest x-ray - 07/03/19 - Impression: New/increased bilateral basilar atelectatic changes and possible right basilar consolidation, over 3 days Other findings as noted 07/07/19 - chest x-ray - IMPRESSION: 1. Interval removal of endotracheal tube. 2. Right-sided PICC with the catheter tip in the region of the right atrium. 3. Cardiomegaly. 4. Low lung volumes, which may be related to shallow inspiration. 5. Subsegmental atelectasis versus infiltrates in bilateral lung bases, unchanged. Microbiology Date/Time Source Procedure Growth Status 06/29/19 17:15 Blood Blood Culture - Final NO GROWTH AFTER 5 DAYS Complete 07/08/19 08:34 Sputum Gram Stain - Final Resulted 07/08/19 08:34 Sputum Culture - Preliminary Escherichia Coli - Esbl Resulted 06/30/19 14:50 Stool Clostridium difficile Toxin Assay - Final Complete 07/03/19 14:15 Abdominal Fluid Gram Stain - Final Complete 07/03/19 14:15 Abdominal Fluid Body Fluid Culture - Final NO GROWTH Complete Laboratory Tests Test 07/11/19 05:50 07/11/19 13:30 White Blood Count 12.9 K/UL (4.8-10.8) H Red Blood Count 3.13 M/UL (4.20-5.40) L Hemoglobin 9.8 G/DL (12.0-16.0) L Hematocrit 30.5 % (37.0-47.0) L Mean Corpuscular Volume 97 FL (80-99) Mean Corpuscular Hemoglobin 31.5 PG (27.0-31.0) H Mean Corpuscular Hemoglobin Concent 32.3 G/DL (32.0-36.0) Red Cell Distribution Width 20.6 % (11.6-14.8) H Platelet Count 62 K/UL (150-450) L Mean Platelet Volume 6.6 FL (6.5-10.1) Neutrophils (%) (Auto) % (45.0-75.0) Lymphocytes (%) (Auto) % (20.0-45.0) Monocytes (%) (Auto) % (1.0-10.0) Eosinophils (%) (Auto) % (0.0-3.0) Basophils (%) (Auto) % (0.0-2.0) Differential Total Cells Counted 100 Neutrophils % (Manual) 95 % (45-75) H Lymphocytes % (Manual) 2 % (20-45) L Monocytes % (Manual) 3 % (1-10) Eosinophils % (Manual) 0 % (0-3) Basophils % (Manual) 0 % (0-2) Band Neutrophils 0 % (0-8) Platelet Estimate Decreased L Platelet Morphology Normal Hypochromasia 2+ Anisocytosis 2+ Prothrombin Time 20.9 SEC (9.30-11.50) H Prothromb Time International Ratio 2.0 (0.9-1.1) H Sodium Level 135 MMOL/L (136-145) L Potassium Level 4.3 MMOL/L (3.5-5.1) Chloride Level 108 MMOL/L (98-107) H Carbon Dioxide Level 19 MMOL/L (21-32) L Anion Gap 8 mmol/L (5-15) Blood Urea Nitrogen 27 mg/dL (7-18) H Creatinine 0.8 MG/DL (0.55-1.30) Estimat Glomerular Filtration Rate > 60 mL/min (>60) Glucose Level 84 MG/DL (74-106) Calcium Level 7.8 MG/DL (8.5-10.1) L Iron Level 19 ug/dL (50-175) L Total Iron Binding Capacity 110 ug/dL (250-450) L Percent Iron Saturation 17 % (15-50) Unsaturated Iron Binding 91 ug/dL (112-346) L Total Bilirubin 11.6 MG/DL (0.2-1.0) H Direct Bilirubin 8.5 MG/DL (0.0-0.3) H Aspartate Amino Transf (AST/SGOT) 57 U/L (15-37) H Alanine Aminotransferase (ALT/SGPT) 66 U/L (12-78) Alkaline Phosphatase 133 U/L (46-116) H Total Protein 4.5 G/DL (6.4-8.2) L Albumin 1.2 G/DL (3.4-5.0) L Globulin 3.3 g/dL Albumin/Globulin Ratio 0.4 (1.0-2.7) L Alpha Fetoprotein Pending Anti-Nuclear Antibody Screen Pending F-Actin IgG Antibody Pending Vancomycin Level Trough 19.6 ug/mL (5.0-12.0) H Anti-Mitochondrial Antibody Pending Current Medications Medications (Trade) Dose Ordered Sig/Naseem Route PRN Reason Start Time Stop Time Status Last Admin Dose Admin Chlorhexidine Gluconate (Mer-Hex 2%) 1 applic DAILY@1999 TOPIC 07/04/19 20:00 08/01/19 19:59 07/10/19 21:32 Dextrose (Dextrose 50%) 25 ml Q30M PRN IV Hypoglycemia 07/04/19 16:00 07/28/19 04:59 Dextrose (Dextrose 50%) 50 ml Q30M PRN IV Hypoglycemia 07/04/19 16:00 07/28/19 04:59 Famotidine (Pepcid I.v.) 20 mg Q12HR IVP 07/04/19 21:00 08/01/19 20:59 07/11/19 08:19 Insulin Aspart (NovoLOG) BEFORE MEALS AND HS SUBQ 07/04/19 16:30 07/28/19 06:29 07/11/19 12:09 Meropenem 1 gm/ Sodium Chloride 100 ml @ 200 mls/hr Q8HR IVPB 07/11/19 22:00 07/16/19 21:59 Ondansetron HCl (Zofran) 4 mg Q6H PRN IVP Nausea & Vomiting 07/04/19 15:43 08/03/19 15:42 Sodium Chloride 1,000 ml @ 50 mls/hr Q20H IV 07/04/19 15:42 08/03/19 15:41 07/11/19 08:19 Vancomycin HCl (Firvanq) 125 mg Q6HR ORAL 07/09/19 18:00 07/16/19 17:59 07/11/19 12:08 Vancomycin HCl (Vanco rx to dose) 1 ea DAILY PRN MISC Per rx protocol 07/05/19 09:00 08/01/19 12:29 Vancomycin HCl 500 mg/Dextrose 110 ml @ 110 mls/hr Q12HR@0300,1500 IVPB 07/11/19 15:00 07/16/19 14:59 07/11/19 16:12 Jay Hurtado MD Jul 11, 2019 17:05
--- NOTE | 2019-07-11 19:06 | Hematology/Onc Progress Note ---
Assessment/Plan Assessment/Plan Assessment and Recs: # Anemia of GI bleed -- patient presents with occult+ bleeding, anemia panel reviewed iron stores are moderate but given 4 units prbc, can be falsely moderate, recheck in several days, anemia is due to variceal bleed --> as per GI eval, may need endoscopy-> s/p egd with variceal banding prior --> has been started on ppi --> cea has been ordered - normal --> Hgb goal >7. Transfuse prn. --> (s/p 4 units prbc) --> Iron x 1 dose has been given --> Medications have been reviewed --> continue ppi and octreotide prn per gi --> hgb trend 8.8-->8.8-->8.2-->7.2->9.6-->9.1-->8.8-->8.7-->9-->9.8 # Thrombocytopenia - potential causes multifactorial, evaluate liver and viral etiologies to begin, also could be related to underlying medications patient has received. In this case is due to etoh abuse, esoph varices and cirrhosis is noted, also potential c.diff infection --> Hep panel pending and HIV negative --> US abd does show cirrhosis --> Peripheral smear ordered to evaluate for blasts /schistocytes does not show any --> abx and other meds have been reviewed --> ok for ppx if plt >50k w/ either heparin or lovenox --> Transfuse if Plt < 20k and fever, or if Plt < 10k without fever --> plt count 90k-->46k-->63k-->68k-->52k-->48k->77k-->62 --> EGD per gi --> s/p plt transfusion on 06/29 # Leukocytosis rule out infection --> on abx, continue per id # Varices, esophageal --> potential rupture as per gi recs --> off octreotide # Cirrhosis --> with hepatic enceph --> gi recs prn # Resp failure did require intubation during hospitalization --> now extubated on ra # Hypokalemia with dec K --> given IV k as per pcp The timing of this note does not necessarily reflect the time of the patient was seen. GREATLY APPRECIATE CONSULTATION. Subjective Allergies: Coded Allergies: No Known Allergies (Unverified , 06/27/19) Subjective 06/29: icu, s/p egd and plt tx, levo gtt 07/01: remains on vent, ivelisse Montero rn, with c. diff + and on abx, holding off weaning 07/02: remains on vent, c.diff abx, weaning tolerated well, no changed, ivelisse rn 07/03: no bleeding no chills no night sweats reported 07/04: seen and ivelisse gage in the am, now downgraded out of icu 07/05: eating breakfast with retail pharmacist, no f/c, no night sweats 07/06: no f/c, vs stable, denies pain, on abx, labs noted 07/07: labs reviewed, plt slightly lower, on abx for c.diff 07/09: no fevers, no chulls, labs reviewed, on abx 07/10: labs reviewed, bili is higher, seen by gi 07/11: cxr-->new or increased right pleural fluid, increasing interstitial congestion, on abx, no f/c, s/p paracentesis Objective Objective Current Medications Medications (Trade) Dose Ordered Sig/Naseem Route PRN Reason Start Time Stop Time Status Last Admin Dose Admin Chlorhexidine Gluconate (Mer-Hex 2%) 1 applic DAILY@1999 TOPIC 07/04/19 20:00 08/01/19 19:59 07/10/19 21:32 Dextrose (Dextrose 50%) 25 ml Q30M PRN IV Hypoglycemia 07/04/19 16:00 07/28/19 04:59 Dextrose (Dextrose 50%) 50 ml Q30M PRN IV Hypoglycemia 07/04/19 16:00 07/28/19 04:59 Famotidine (Pepcid I.v.) 20 mg Q12HR IVP 07/04/19 21:00 08/01/19 20:59 07/11/19 08:19 Insulin Aspart (NovoLOG) BEFORE MEALS AND HS SUBQ 07/04/19 16:30 07/28/19 06:29 07/11/19 17:02 Meropenem 1 gm/ Sodium Chloride 100 ml @ 200 mls/hr Q8HR IVPB 07/11/19 22:00 07/16/19 21:59 Ondansetron HCl (Zofran) 4 mg Q6H PRN IVP Nausea & Vomiting 07/04/19 15:43 08/03/19 15:42 Sodium Chloride 1,000 ml @ 50 mls/hr Q20H IV 07/04/19 15:42 08/03/19 15:41 07/11/19 08:19 Vancomycin HCl (Firvanq) 125 mg Q6HR ORAL 07/09/19 18:00 07/16/19 17:59 07/11/19 17:22 Vancomycin HCl (Vanco rx to dose) 1 ea DAILY PRN MISC Per rx protocol 07/05/19 09:00 08/01/19 12:29 Vancomycin HCl 500 mg/Dextrose 110 ml @ 110 mls/hr Q12HR@0300,1500 IVPB 07/11/19 15:00 07/16/19 14:59 07/11/19 16:12 Last 24 Hour Vital Signs Date Time Temp Pulse Resp B/P (MAP) Pulse Ox O2 Delivery O2 Flow Rate FiO2 07/11/19 16:00 97.5 91 18 98/51 (67) 96 07/11/19 16:00 91 07/11/19 12:00 91 07/11/19 12:00 98.4 91 18 104/63 (77) 97 07/11/19 09:00 Nasal Cannula 2.0 07/11/19 08:00 92 07/11/19 08:00 97.6 92 18 97/54 (68) 96 07/11/19 04:00 97.4 91 20 96/53 (67) 96 07/11/19 04:00 93 07/11/19 00:00 94 07/11/19 00:00 97.6 87 18 99/46 (63) 100 07/10/19 21:00 Nasal Cannula 2.0 07/10/19 20:00 98.0 101 18 98/56 (70) 92 07/10/19 20:00 100 07/10/19 16:00 93 07/10/19 16:00 97.5 100 20 108/61 (77) 96 07/10/19 12:00 99 07/10/19 09:00 Nasal Cannula 2.0 07/10/19 08:00 98.0 100 20 103/69 (80) 95 07/10/19 08:00 100 07/10/19 07:05 95 Nasal Cannula 2.0 28 07/10/19 04:00 98 07/10/19 04:00 97.5 102 18 116/61 (79) 97 07/10/19 00:00 98 07/10/19 00:00 97.9 100 20 127/78 (94) 97 07/09/19 21:00 Nasal Cannula 2.0 07/09/19 20:00 97.4 100 18 112/68 (83) 98 07/09/19 20:00 100 Intake and Output 07/10/19 07/11/19 19:00 07:00 Intake Total 120 ml Output Total 250 ml 150 ml Balance -130 ml -150 ml Intake Oral 120 ml Output Urine Total 250 ml 150 ml Labs Test 07/09/19 06:20 07/10/19 00:50 07/10/19 05:00 07/11/19 05:50 White Blood Count 16.6 K/UL (4.8-10.8) 17.1 K/UL (4.8-10.8) 12.9 K/UL (4.8-10.8) Red Blood Count 3.10 M/UL (4.20-5.40) 3.20 M/UL (4.20-5.40) 3.13 M/UL (4.20-5.40) Hemoglobin 9.8 G/DL (12.0-16.0) 10.0 G/DL (12.0-16.0) 9.8 G/DL (12.0-16.0) Hematocrit 27.7 % (37.0-47.0) 30.9 % (37.0-47.0) 30.5 % (37.0-47.0) Mean Corpuscular Volume 89 FL (80-99) 97 FL (80-99) 97 FL (80-99) Mean Corpuscular Hemoglobin 31.7 PG (27.0-31.0) 31.1 PG (27.0-31.0) 31.5 PG (27.0-31.0) Mean Corpuscular Hemoglobin Concent 35.4 G/DL (32.0-36.0) 32.2 G/DL (32.0-36.0) 32.3 G/DL (32.0-36.0) Red Cell Distribution Width 17.9 % (11.6-14.8) 20.5 % (11.6-14.8) 20.6 % (11.6-14.8) Platelet Count 67 K/UL (150-450) 77 K/UL (150-450) 62 K/UL (150-450) Mean Platelet Volume 6.2 FL (6.5-10.1) 6.3 FL (6.5-10.1) 6.6 FL (6.5-10.1) Neutrophils (%) (Auto) % (45.0-75.0) % (45.0-75.0) % (45.0-75.0) Lymphocytes (%) (Auto) % (20.0-45.0) % (20.0-45.0) % (20.0-45.0) Monocytes (%) (Auto) % (1.0-10.0) % (1.0-10.0) % (1.0-10.0) Eosinophils (%) (Auto) % (0.0-3.0) % (0.0-3.0) % (0.0-3.0) Basophils (%) (Auto) % (0.0-2.0) % (0.0-2.0) % (0.0-2.0) Differential Total Cells Counted 100 100 100 Neutrophils % (Manual) 92 % (45-75) 95 % (45-75) 95 % (45-75) Lymphocytes % (Manual) 4 % (20-45) 3 % (20-45) 2 % (20-45) Monocytes % (Manual) 3 % (1-10) 2 % (1-10) 3 % (1-10) Eosinophils % (Manual) 1 % (0-3) 0 % (0-3) 0 % (0-3) Basophils % (Manual) 0 % (0-2) 0 % (0-2) 0 % (0-2) Band Neutrophils 0 % (0-8) 0 % (0-8) 0 % (0-8) Platelet Estimate Decreased Decreased Decreased Platelet Morphology Normal Normal Normal Polychromasia 1+ Hypochromasia 1+ 1+ 2+ Anisocytosis 1+ 2+ 2+ Sodium Level 138 MMOL/L (136-145) 136 MMOL/L (136-145) 135 MMOL/L (136-145) Potassium Level 4.3 MMOL/L (3.5-5.1) 4.4 MMOL/L (3.5-5.1) 4.3 MMOL/L (3.5-5.1) Chloride Level 109 MMOL/L (98-107) 108 MMOL/L (98-107) 108 MMOL/L (98-107) Carbon Dioxide Level 20 MMOL/L (21-32) 19 MMOL/L (21-32) 19 MMOL/L (21-32) Anion Gap 9 mmol/L (5-15) 9 mmol/L (5-15) 8 mmol/L (5-15) Blood Urea Nitrogen 23 mg/dL (7-18) 26 mg/dL (7-18) 27 mg/dL (7-18) Creatinine 0.7 MG/DL (0.55-1.30) 0.7 MG/DL (0.55-1.30) 0.8 MG/DL (0.55-1.30) Estimat Glomerular Filtration Rate > 60 mL/min (>60) > 60 mL/min (>60) > 60 mL/min (>60) Glucose Level 83 MG/DL (74-106) 99 MG/DL (74-106) 84 MG/DL (74-106) Calcium Level 7.9 MG/DL (8.5-10.1) 7.7 MG/DL (8.5-10.1) 7.8 MG/DL (8.5-10.1) Total Bilirubin 9.5 MG/DL (0.2-1.0) 10.3 MG/DL (0.2-1.0) 11.6 MG/DL (0.2-1.0) Direct Bilirubin 7.1 MG/DL (0.0-0.3) 7.5 MG/DL (0.0-0.3) 8.5 MG/DL (0.0-0.3) Aspartate Amino Transf (AST/SGOT) 63 U/L (15-37) 60 U/L (15-37) 57 U/L (15-37) Alanine Aminotransferase (ALT/SGPT) 96 U/L (12-78) 84 U/L (12-78) 66 U/L (12-78) Alkaline Phosphatase 150 U/L (46-116) 137 U/L (46-116) 133 U/L (46-116) Total Protein 4.8 G/DL (6.4-8.2) 4.7 G/DL (6.4-8.2) 4.5 G/DL (6.4-8.2) Albumin 1.4 G/DL (3.4-5.0) 1.4 G/DL (3.4-5.0) 1.2 G/DL (3.4-5.0) Globulin 3.4 g/dL 3.3 g/dL 3.3 g/dL Albumin/Globulin Ratio 0.4 (1.0-2.7) 0.4 (1.0-2.7) 0.4 (1.0-2.7) Vancomycin Level Trough 16.4 ug/mL (5.0-12.0) Prothrombin Time 20.9 SEC (9.30-11.50) 20.9 SEC (9.30-11.50) Prothromb Time International Ratio 2.0 (0.9-1.1) 2.0 (0.9-1.1) Activated Partial Thromboplast Time 60 SEC (23-33) Phosphorus Level 2.6 MG/DL (2.5-4.9) Magnesium Level 1.7 MG/DL (1.8-2.4) Iron Level 19 ug/dL (50-175) Total Iron Binding Capacity 110 ug/dL (250-450) Percent Iron Saturation 17 % (15-50) Unsaturated Iron Binding 91 ug/dL (112-346) Test 07/11/19 13:30 Vancomycin Level Trough 19.6 ug/mL (5.0-12.0) Height (Feet): 5 Height (Inches): 2.00 Weight (Pounds): 146 Objective Physical Exam: Vitals: reviewed General Appearance: NAD HEENT: normocephalic, atraumatic Respiratory/Chest: normal breath sounds bilaterally Cardiovascular/Chest: normal peripheral pulses, normal rate Abdomen: normal bowel sounds, soft, nontender Extremities: normal range of motion Anthony Chaudhary MD Jul 11, 2019 19:06
--- NOTE | 2019-07-11 19:34 | NUR ---
HAND-OFF: Report given to ROMAIN Bedolla.
--- NOTE | 2019-07-11 19:42 | NUR ---
NURSE NOTES: LEFT MESSAGE FOR DR LAL THAT CASE MANAGEMENT MET WITH FAMILY TODAY, POLST UPDATED TO DNR/DNI COMFORT FOCUSSED CARE AND THAT FAMILY WILL LIKE TO TAKE HER HOME WITH HOSPICE. DR LAL NEEDS TO DECIDE WHICH HOSPICE COMPANY SHE WOULD GO WITH.
[2019-07-11 20:00] VITALS: BP 101/67
[2019-07-11] MEDS: Dyna-Hex 2% Top Sol 2oz TOPIC SCH (21:20)
[2019-07-12] VITALS: BP 99/59
[2019-07-12] MEDS: Vancomycin 500mg/D5W 110ml IVPB SCH ×4 (03:01→15:00)
[2019-07-12 04:00] VITALS: BP 103/59
[2019-07-12] MEDS: Vancomycin oral 125mg/2.5ml ORAL SCH ×4 (06:21→17:21)
[2019-07-12] MEDS: NovoLOG Insulin Flexpen SUBQ SCH ×4 (06:23→20:49)
[2019-07-12 06:39] LABS: HEMATOCRIT 29.6 % (37.0-47.0); HEMOGLOBIN 9.6 G/DL (12.0-16.0); MEAN CORPUSCULAR VOLUME 97 FL (80-99); PLATELET COUNT 75 K/UL (150-450); RED BLOOD COUNT 3.06 M/UL (4.20-5.40); RED CELL DISTRIBUTION WIDTH 20.2 % (11.6-14.8); WHITE BLOOD COUNT 11.7 K/UL (4.8-10.8)
--- NOTE | 2019-07-12 07:15 | NUR ---
NURSE NOTES: Report received from Graeme HOYOS.Pt resting quietly in bed asleep noted no resp distress opens eyes spontaneously with verbal command,no signs of pain or discomfort,SR on the monitor,IV site to TIANNA PICC line intact,Rouse cath draining yellow urine,skin warm and dry,SR up x2 ,HOB elevated,call rendon within reach at bedside,bed lock in loweast position,will continue with plans of care.
[2019-07-12 07:26] LABS: ALANINE AMINOTRANSFERASE 57 U/L (12-78); ALBUMIN 1.4 G/DL (3.4-5.0); ALBUMIN/GLOBULIN RATIO 0.4 (1.0-2.7); ALKALINE PHOSPHATASE 131 U/L (46-116); ANION GAP 9 mmol/L (5-15); ASPARTATE AMINO TRANSFERASE 54 U/L (15-37); BILIRUBIN,TOTAL 14.7 MG/DL (0.2-1.0); BLOOD UREA NITROGEN 29 mg/dL (7-18); CARBON DIOXIDE 19 MMOL/L (21-32); CHLORIDE 105 MMOL/L (98-107); CREATININE 0.9 MG/DL (0.55-1.30); POTASSIUM 4.2 MMOL/L (3.5-5.1); SODIUM 133 MMOL/L (136-145)
[2019-07-12 07:41] LABS: BILIRUBIN,DIRECT 10.6 MG/DL (0.0-0.3)
[2019-07-12 08:00] VITALS: BP 95/64
--- NOTE | 2019-07-12 08:25 | NUR ---
Social Service Note Chart reviewed. Patient full code with no hospice order. SW discussed with charge nurse who will speak with MD regarding orders. Family would like patient to return home with hospice. Will follow up as needed.
--- NOTE | 2019-07-12 09:00 | Hematology/Onc Progress Note ---
Assessment/Plan Assessment/Plan Assessment and Recs: # Anemia of GI bleed -- patient presents with occult+ bleeding, anemia panel reviewed iron stores are moderate but given 4 units prbc, can be falsely moderate, recheck in several days, anemia is due to variceal bleed --> as per GI eval, may need endoscopy-> s/p egd with variceal banding prior --> has been started on ppi --> cea has been ordered - normal --> Hgb goal >7. Transfuse prn. --> (s/p 4 units prbc) --> Iron x 1 dose has been given --> Medications have been reviewed --> continue ppi and octreotide prn per gi --> hgb trend 8.8-->8.8-->8.2-->7.2->9.6-->9.1-->8.8-->8.7-->9-->9.8-->9.6 # Thrombocytopenia - potential causes multifactorial, evaluate liver and viral etiologies to begin, also could be related to underlying medications patient has received. In this case is due to etoh abuse, esoph varices and cirrhosis is noted, also potential c.diff infection --> Hep panel pending and HIV negative --> US abd does show cirrhosis --> Peripheral smear ordered to evaluate for blasts /schistocytes does not show any --> abx and other meds have been reviewed --> ok for ppx if plt >50k w/ either heparin or lovenox --> Transfuse if Plt < 20k and fever, or if Plt < 10k without fever --> plt count 90k-->46k-->63k-->68k-->52k-->48k->77k-->62-->75k --> EGD per gi --> s/p plt transfusion on 06/29 # Leukocytosis rule out infection --> on abx, continue per id # Varices, esophageal --> potential rupture as per gi recs --> off octreotide # Cirrhosis --> with hepatic enceph --> gi recs prn # Resp failure did require intubation during hospitalization --> now extubated on ra # Hypokalemia with dec K --> given IV k as per pcp The timing of this note does not necessarily reflect the time of the patient was seen. GREATLY APPRECIATE CONSULTATION. Subjective Constitutional: Denies: no symptoms, chills, fever, malaise, weakness, other HEENT: Denies: no symptoms, eye pain, blurred vision, tearing, double vision, ear pain, ear discharge, nose pain, nose congestion, throat pain, throat swelling, mouth pain, mouth swelling, other Cardiovascular: Denies: no symptoms, chest pain, edema, irregular heart rate, lightheadedness, palpitations, syncope, other Respiratory: Denies: no symptoms, cough, shortness of breath, SOB with excertion, SOB at rest, sputum, wheezing, other Gastrointestinal/Abdominal: Denies: no symptoms, abdomen distended, abdominal pain, black stools, tarry stools, blood in stool, constipated, diarrhea, difficulty swallowing, nausea, poor appetite, poor fluid intake, rectal bleeding , vomiting, other Genitourinary: Denies: no symptoms, burning, discharge, frequency, flank pain, hematuria, incontinence, pain, urgency, other Neurologic/Psychiatric: Denies: no symptoms, anxiety, depressed, emotional problems, headache, numbness, paresthesia, pre-existing deficit, seizure, tingling, tremors, weakness, other Endocrine: Denies: no symptoms, excessive sweating, flushing, intolerance to cold, intolerance to heat, increased hunger, increased thirst, increased urine, unexplained weight gain, unexplained weight loss, other Allergies: Coded Allergies: No Known Allergies (Unverified , 06/27/19) Subjective 06/29: icu, s/p egd and plt tx, levo gtt 07/01: remains on vent, ivelisse Montero rn, with c. 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 with glaze grinder, no f/c, no night sweats 07/06: no f/c, vs stable, denies pain, on abx, labs noted 07/07: labs reviewed, plt slightly lower, on abx for c.diff 07/09: no fevers, no chulls, labs reviewed, on abx 07/10: labs reviewed, bili is higher, seen by gi 07/11: cxr-->new or increased right pleural fluid, increasing interstitial congestion, on abx, no f/c, s/p paracentesis 07/12: potentially home with hospice soon, no bleeding reported Objective Objective Current Medications Medications (Trade) Dose Ordered Sig/Naseem Route PRN Reason Start Time Stop Time Status Last Admin Dose Admin Chlorhexidine Gluconate (Mer-Hex 2%) 1 applic DAILY@2000 TOPIC 07/04/19 20:00 08/01/19 19:59 07/11/19 21:20 Dextrose (Dextrose 50%) 25 ml Q30M PRN IV Hypoglycemia 07/04/19 16:00 07/28/19 04:59 Dextrose (Dextrose 50%) 50 ml Q30M PRN IV Hypoglycemia 07/04/19 16:00 07/28/19 04:59 Famotidine (Pepcid I.v.) 20 mg Q12HR IVP 07/04/19 21:00 08/01/19 20:59 07/11/19 21:20 Insulin Aspart (NovoLOG) BEFORE MEALS AND HS SUBQ 07/04/19 16:30 07/28/19 06:29 07/11/19 21:53 Meropenem 1 gm/ Sodium Chloride 100 ml @ 200 mls/hr Q8HR IVPB 07/11/19 22:00 07/16/19 21:59 07/12/19 06:22 Ondansetron HCl (Zofran) 4 mg Q6H PRN IVP Nausea & Vomiting 07/04/19 15:43 08/03/19 15:42 Sodium Chloride 1,000 ml @ 50 mls/hr Q20H IV 07/04/19 15:42 08/03/19 15:41 07/12/19 03:43 Vancomycin HCl (Firvanq) 125 mg Q6HR ORAL 07/12/19 00:00 07/19/19 00:00 07/12/19 06:21 Vancomycin HCl (Vanco rx to dose) 1 ea DAILY PRN MISC Per rx protocol 07/05/19 09:00 08/01/19 12:29 Vancomycin HCl 500 mg/Dextrose 110 ml @ 110 mls/hr Q12HR@0300,1500 IVPB 07/11/19 15:00 07/16/19 14:59 07/12/19 03:01 Last 24 Hour Vital Signs Date Time Temp Pulse Resp B/P (MAP) Pulse Ox O2 Delivery O2 Flow Rate FiO2 07/12/19 08:00 97.2 92 20 95/64 (74) 97 07/12/19 04:00 97.5 93 18 103/59 (74) 97 07/12/19 04:00 94 07/12/19 00:00 97.4 89 16 99/59 (72) 97 07/12/19 00:00 89 07/11/19 21:00 Nasal Cannula 2.0 07/11/19 20:00 97.7 86 16 101/67 (78) 96 07/11/19 20:00 91 07/11/19 16:00 97.5 91 18 98/51 (67) 96 07/11/19 16:00 91 07/11/19 12:00 91 07/11/19 12:00 98.4 91 18 104/63 (77) 97 07/11/19 09:00 Nasal Cannula 2.0 07/11/19 08:00 92 07/11/19 08:00 97.6 92 18 97/54 (68) 96 07/11/19 04:00 97.4 91 20 96/53 (67) 96 07/11/19 04:00 93 07/11/19 00:00 94 07/11/19 00:00 97.6 87 18 99/46 (63) 100 07/10/19 21:00 Nasal Cannula 2.0 07/10/19 20:00 98.0 101 18 98/56 (70) 92 07/10/19 20:00 100 07/10/19 16:00 93 07/10/19 16:00 97.5 100 20 108/61 (77) 96 07/10/19 12:00 99 07/10/19 09:00 Nasal Cannula 2.0 Intake and Output 07/11/19 07/12/19 18:59 06:59 Intake Total 490 ml 520 ml Output Total 375 ml 400 ml Balance 115 ml 120 ml Intake Oral 490 ml IV Total 520 ml Output Urine Total 375 ml 400 ml Labs Test 07/10/19 00:50 07/10/19 05:00 07/11/19 05:50 07/11/19 13:30 Vancomycin Level Trough 16.4 ug/mL (5.0-12.0) 19.6 ug/mL (5.0-12.0) White Blood Count 17.1 K/UL (4.8-10.8) 12.9 K/UL (4.8-10.8) Red Blood Count 3.20 M/UL (4.20-5.40) 3.13 M/UL (4.20-5.40) Hemoglobin 10.0 G/DL (12.0-16.0) 9.8 G/DL (12.0-16.0) Hematocrit 30.9 % (37.0-47.0) 30.5 % (37.0-47.0) Mean Corpuscular Volume 97 FL (80-99) 97 FL (80-99) Mean Corpuscular Hemoglobin 31.1 PG (27.0-31.0) 31.5 PG (27.0-31.0) Mean Corpuscular Hemoglobin Concent 32.2 G/DL (32.0-36.0) 32.3 G/DL (32.0-36.0) Red Cell Distribution Width 20.5 % (11.6-14.8) 20.6 % (11.6-14.8) Platelet Count 77 K/UL (150-450) 62 K/UL (150-450) Mean Platelet Volume 6.3 FL (6.5-10.1) 6.6 FL (6.5-10.1) Neutrophils (%) (Auto) % (45.0-75.0) % (45.0-75.0) Lymphocytes (%) (Auto) % (20.0-45.0) % (20.0-45.0) Monocytes (%) (Auto) % (1.0-10.0) % (1.0-10.0) Eosinophils (%) (Auto) % (0.0-3.0) % (0.0-3.0) Basophils (%) (Auto) % (0.0-2.0) % (0.0-2.0) Differential Total Cells Counted 100 100 Neutrophils % (Manual) 95 % (45-75) 95 % (45-75) Lymphocytes % (Manual) 3 % (20-45) 2 % (20-45) Monocytes % (Manual) 2 % (1-10) 3 % (1-10) Eosinophils % (Manual) 0 % (0-3) 0 % (0-3) Basophils % (Manual) 0 % (0-2) 0 % (0-2) Band Neutrophils 0 % (0-8) 0 % (0-8) Platelet Estimate Decreased Decreased Platelet Morphology Normal Normal Hypochromasia 1+ 2+ Anisocytosis 2+ 2+ Prothrombin Time 20.9 SEC (9.30-11.50) 20.9 SEC (9.30-11.50) Prothromb Time International Ratio 2.0 (0.9-1.1) 2.0 (0.9-1.1) Activated Partial Thromboplast Time 60 SEC (23-33) Sodium Level 136 MMOL/L (136-145) 135 MMOL/L (136-145) Potassium Level 4.4 MMOL/L (3.5-5.1) 4.3 MMOL/L (3.5-5.1) Chloride Level 108 MMOL/L (98-107) 108 MMOL/L (98-107) Carbon Dioxide Level 19 MMOL/L (21-32) 19 MMOL/L (21-32) Anion Gap 9 mmol/L (5-15) 8 mmol/L (5-15) Blood Urea Nitrogen 26 mg/dL (7-18) 27 mg/dL (7-18) Creatinine 0.7 MG/DL (0.55-1.30) 0.8 MG/DL (0.55-1.30) Estimat Glomerular Filtration Rate > 60 mL/min (>60) > 60 mL/min (>60) Glucose Level 99 MG/DL (74-106) 84 MG/DL (74-106) Calcium Level 7.7 MG/DL (8.5-10.1) 7.8 MG/DL (8.5-10.1) Phosphorus Level 2.6 MG/DL (2.5-4.9) Magnesium Level 1.7 MG/DL (1.8-2.4) Total Bilirubin 10.3 MG/DL (0.2-1.0) 11.6 MG/DL (0.2-1.0) Direct Bilirubin 7.5 MG/DL (0.0-0.3) 8.5 MG/DL (0.0-0.3) Aspartate Amino Transf (AST/SGOT) 60 U/L (15-37) 57 U/L (15-37) Alanine Aminotransferase (ALT/SGPT) 84 U/L (12-78) 66 U/L (12-78) Alkaline Phosphatase 137 U/L (46-116) 133 U/L (46-116) Total Protein 4.7 G/DL (6.4-8.2) 4.5 G/DL (6.4-8.2) Albumin 1.4 G/DL (3.4-5.0) 1.2 G/DL (3.4-5.0) Globulin 3.3 g/dL 3.3 g/dL Albumin/Globulin Ratio 0.4 (1.0-2.7) 0.4 (1.0-2.7) Iron Level 19 ug/dL (50-175) Total Iron Binding Capacity 110 ug/dL (250-450) Percent Iron Saturation 17 % (15-50) Unsaturated Iron Binding 91 ug/dL (112-346) Test 07/12/19 06:00 White Blood Count 11.7 K/UL (4.8-10.8) Red Blood Count 3.06 M/UL (4.20-5.40) Hemoglobin 9.6 G/DL (12.0-16.0) Hematocrit 29.6 % (37.0-47.0) Mean Corpuscular Volume 97 FL (80-99) Mean Corpuscular Hemoglobin 31.3 PG (27.0-31.0) Mean Corpuscular Hemoglobin Concent 32.4 G/DL (32.0-36.0) Red Cell Distribution Width 20.2 % (11.6-14.8) Platelet Count 75 K/UL (150-450) Mean Platelet Volume 7.9 FL (6.5-10.1) Neutrophils (%) (Auto) % (45.0-75.0) Lymphocytes (%) (Auto) % (20.0-45.0) Monocytes (%) (Auto) % (1.0-10.0) Eosinophils (%) (Auto) % (0.0-3.0) Basophils (%) (Auto) % (0.0-2.0) Differential Total Cells Counted 100 Neutrophils % (Manual) 91 % (45-75) Lymphocytes % (Manual) 5 % (20-45) Monocytes % (Manual) 2 % (1-10) Eosinophils % (Manual) 2 % (0-3) Basophils % (Manual) 0 % (0-2) Band Neutrophils 0 % (0-8) Platelet Estimate Decreased Platelet Morphology Normal Anisocytosis 2+ Sodium Level 133 MMOL/L (136-145) Potassium Level 4.2 MMOL/L (3.5-5.1) Chloride Level 105 MMOL/L (98-107) Carbon Dioxide Level 19 MMOL/L (21-32) Anion Gap 9 mmol/L (5-15) Blood Urea Nitrogen 29 mg/dL (7-18) Creatinine 0.9 MG/DL (0.55-1.30) Estimat Glomerular Filtration Rate > 60 mL/min (>60) Glucose Level 118 MG/DL (74-106) Calcium Level 8.0 MG/DL (8.5-10.1) Total Bilirubin 14.7 MG/DL (0.2-1.0) Direct Bilirubin 10.6 MG/DL (0.0-0.3) Aspartate Amino Transf (AST/SGOT) 54 U/L (15-37) Alanine Aminotransferase (ALT/SGPT) 57 U/L (12-78) Alkaline Phosphatase 131 U/L (46-116) Total Protein 4.6 G/DL (6.4-8.2) Albumin 1.4 G/DL (3.4-5.0) Globulin 3.2 g/dL Albumin/Globulin Ratio 0.4 (1.0-2.7) Height (Feet): 5 Height (Inches): 2.00 Weight (Pounds): 146 Objective Physical Exam: Vitals: reviewed General Appearance: NAD HEENT: normocephalic, atraumatic ++ jaundice++ Respiratory/Chest: normal breath sounds bilaterally Cardiovascular/Chest: normal peripheral pulses, normal rate Abdomen: normal bowel sounds, soft, nontender Extremities: normal range of motion Anthony Chaudhary MD Jul 12, 2019 09:00
--- NOTE | 2019-07-12 09:38 | General Progress Note ---
Assessment/Plan Status: unchanged, deteriorating Assessment/Plan: 69-year-old female with past medical history of liver cirrhosis without known etiology presents for hematemesis- overall worsening, now DNR/DNI #Hypovolemic/ septic shock secondary to hematemesis- resolved off pressors, e.coli pna, mrsa pna, sepsis, c.diff. +, leukocytosis, fevers, respiratory failure, ? sbp -s/p PRBC, platelet transfusion on admission- Hemoglobin stable -GI consult, appreciate recs: EGD 06/29/2019, esophageal varices x7 banding. Blood in abdomen. A limited however no active bleeding noted -Continue to monitor Hb. PRBC if < 7 or if acute bleed with Hb < 8 -Surgery consult, appreciate recs -Cardiology consult, appreciate recs -Echo: ef wnl -prognosis guarded -IV zosyn, IV and PO vancomycin. WBC trending down ID consultation appreciated #Liver cirrhosis with esophageal varices MELD 19 , ? sbp -Status post EGD as above -PPI -s/p Octreotide drip -Monitor CBC and BMP -Patient denies alcohol use, family states reason for liver cirrhosis is unknown. Differentials include Saunders versus autoimmune causes. Hepatitis panel negative, LYRIC, anti-mitochondrial and F-actin igG negative. Acetaminophen level 3, -Right upper quadrant ultrasound: Reviewed, no gallstones -Continue lactulose -CEA normal -prognosis guarded, worsening bilirubin. worsening leukocytosis. Approaching fulminant liver failure. Needs transplant. Case discussed with GI SPORTS DIRECTOR Jarvis Whitfield and Dr. Maurer -Repeat paracentesis today for fluid removal #Hepatic encephalopathy -Continue lactulose as per above #Intubation for airway protection and encephalopathy, extubated 07/03 -Pulmonology consult, appreciate recs #Urinary retention -Continue Rouse for now due to poor mobility -Monitor ins and outs -UA negative #Elevated troponin, likely secondary to demand ischemia -Cardiology consulted, appreciate recs -Echo: Within normal limits -Troponins downtrended. #Lactic acidosis, improved # Physical deconditioning - PT evaluation -Advance diet # Disposition - PT evaluation recommends SNF and skilled therapy. - CM consult -poor prognosis -code status: DNR/DNI , POLST signed by grandson. Case discussed in detail with family Time of this not may not reflect time of encounter. I spent 40 minutes during this encounter, 50 percent spent on counselling and care coordination Subjective Date patient seen: Jul 12, 2019 ROS Limited/Unobtainable: No Gastrointestinal/Abdominal: Reports: abdomen distended Genitourinary: Denies: no symptoms, burning, discharge, frequency, flank pain, hematuria, incontinence, pain, urgency, other Neurologic/Psychiatric: Denies: no symptoms, anxiety, depressed, emotional problems, headache, numbness, paresthesia, pre-existing deficit, seizure, tingling, tremors, weakness, other Endocrine: Denies: no symptoms, excessive sweating, flushing, intolerance to cold, intolerance to heat, increased hunger, increased thirst, increased urine, unexplained weight gain, unexplained weight loss, other Hematologic/Lymphatic: Denies: no symptoms, anemia, easy bleeding, easy bruising, other Allergies: Coded Allergies: No Known Allergies (Unverified , 06/27/19) Subjective seen and examined s/p paracentesis 07/10 afebrile wbc trending down liver enzymes worsening POLST signed DNR/DNR Objective Last 24 Hour Vital Signs Date Time Temp Pulse Resp B/P (MAP) Pulse Ox O2 Delivery O2 Flow Rate FiO2 07/12/19 08:00 97.2 92 20 95/64 (74) 97 07/12/19 04:00 97.5 93 18 103/59 (74) 97 07/12/19 04:00 94 07/12/19 00:00 97.4 89 16 99/59 (72) 97 07/12/19 00:00 89 07/11/19 21:00 Nasal Cannula 2.0 07/11/19 20:00 97.7 86 16 101/67 (78) 96 07/11/19 20:00 91 07/11/19 16:00 97.5 91 18 98/51 (67) 96 07/11/19 16:00 91 07/11/19 12:00 91 07/11/19 12:00 98.4 91 18 104/63 (77) 97 Intake and Output 07/11/19 07/12/19 18:59 06:59 Intake Total 490 ml 520 ml Output Total 375 ml 400 ml Balance 115 ml 120 ml Intake Oral 490 ml IV Total 520 ml Output Urine Total 375 ml 400 ml Laboratory Tests 07/11/19 13:30: Vancomycin Level Trough 19.6H, Anti-Mitochondrial Antibody [Pending] 07/12/19 06:00: White Blood Count 11.7H, Red Blood Count 3.06L, Hemoglobin 9.6L, Hematocrit 29.6L, Mean Corpuscular Volume 97, Mean Corpuscular Hemoglobin 31.3H, Mean Corpuscular Hemoglobin Concent 32.4, Red Cell Distribution Width 20.2H, Platelet Count 75L, Mean Platelet Volume 7.9, Neutrophils (%) (Auto) , Lymphocytes (%) (Auto) , Monocytes (%) (Auto) , Eosinophils (%) (Auto) , Basophils (%) (Auto) , Differential Total Cells Counted 100, Neutrophils % ( Manual) 91H, Lymphocytes % (Manual) 5L, Monocytes % (Manual) 2, Eosinophils % ( Manual) 2, Basophils % (Manual) 0, Band Neutrophils 0, Platelet Estimate DecreasedL, Platelet Morphology Normal, Anisocytosis 2+, Sodium Level 133L, Potassium Level 4.2, Chloride Level 105, Carbon Dioxide Level 19L, Anion Gap 9, Blood Urea Nitrogen 29H, Creatinine 0.9, Estimat Glomerular Filtration Rate > 60 , Glucose Level 118H, Calcium Level 8.0L, Total Bilirubin 14.7H, Direct Bilirubin 10.6H, Aspartate Amino Transf (AST/SGOT) 54H, Alanine Aminotransferase (ALT/SGPT) 57, Alkaline Phosphatase 131H, Total Protein 4.6L, Albumin 1.4L, Globulin 3.2, Albumin/Globulin Ratio 0.4L Height (Feet): 5 Height (Inches): 2.00 Weight (Pounds): 146 Objective General Appearance: no distress EENT: PERRL/EOMI, +jaundice Neck: non-tender, normal alignment Cardiovascular: normal rate, regular rhythm Respiratory/Chest: lungs clear, normal breath sounds Abdomen: non tender, soft, distended, + ascites, weeping Neurologic: line maintenance II-XII grossly normal Skin: normal pigmentation + Sen Dye M.D. Jul 12, 2019 09:38
--- NOTE | 2019-07-12 09:44 | NUR ---
CASE MANAGEMENT: REVIEW 07/12/2019 SI:ACUTE GI BLEED T 97.2 HR 92 RR 20 B/P 95/64 SATS 97% ON 2L/NC WBC 11.7 NA 133 CO2 19 BUN 29 GLU 118 CA 8 TBILI 14.7 DBILI 10.6 AST 54 ALP 131 IS: PROTONIX 25 mL/HR IVF @ 50 mL/HR CEFTRIAXONE IV QD INSULIN ASPART SUBQ AC/HS FLAGYL IV Q8H VANCO IV Q24H VANCO PO Q6H TELE DCP: PATIENT TO BE DISCHARGED TO HOME W/ HOSPICE ONCE MEDICALLY CLEARED.
--- NOTE | 2019-07-12 09:48 | NUR ---
INSURANCE REVIEWS FAXED TO SHANICE MCKOY: [facility] P- [phone] F- [phone]...........REVIEW/ CLINICAL
--- NOTE | 2019-07-12 09:53 | NUR ---
DISCHARGE PLANNING: NOTE CALL PLACED TO MAKAYLA LARA OF [facility] FOR HOSPICE CONSULT. CECILIA KEELY. T: [phone] Addendum: 07/12/19 at 1233 by Rose Mary Judd CALL BACK RECEIVED FROM [facility] FAXED TO [phone] T: [phone]
--- NOTE | 2019-07-12 10:00 | NUR ---
NURSE NOTES: Pt's daughter at bedside,assiting pt in ADL and am care.
--- NOTE | 2019-07-12 10:15 | Pulmonology Progress Note ---
Assessment/Plan Assessment/Plan IMPRESSION: 1. Respiratory failure. Resolved. Extubated 07/03/19 2. Upper GI bleed, likely gastric varices. S/p EGD 3. Diabetes mellitus. 4. Anemia. Hgb stable 5. Thrombocytopenia; 6. Likely hepatic encephalopathy; continue lactulose; has C diff + DISCUSSION: Low flow O2 Continue lactulose Abx for C diff Slowly improving James Zeng M.D. Subjective Interval Events: None new Constitutional: Reports: no symptoms HEENT: Repors: no symptoms Respiratory: Reports: no symptoms Cardiovascular: Reports: no symptoms Gastrointestinal/Abdominal: Reports: no symptoms Allergies: Coded Allergies: No Known Allergies (Unverified , 06/27/19) Objective Last 24 Hour Vital Signs Date Time Temp Pulse Resp B/P (MAP) Pulse Ox O2 Delivery O2 Flow Rate FiO2 07/12/19 08:00 97.2 92 20 95/64 (74) 97 07/12/19 04:00 97.5 93 18 103/59 (74) 97 07/12/19 04:00 94 07/12/19 00:00 97.4 89 16 99/59 (72) 97 07/12/19 00:00 89 07/11/19 21:00 Nasal Cannula 2.0 07/11/19 20:00 97.7 86 16 101/67 (78) 96 07/11/19 20:00 91 07/11/19 16:00 97.5 91 18 98/51 (67) 96 07/11/19 16:00 91 07/11/19 12:00 91 07/11/19 12:00 98.4 91 18 104/63 (77) 97 Intake and Output 07/11/19 07/12/19 18:59 06:59 Intake Total 490 ml 520 ml Output Total 375 ml 400 ml Balance 115 ml 120 ml Intake Oral 490 ml IV Total 520 ml Output Urine Total 375 ml 400 ml General Appearance: no acute distress HEENT: normocephalic Respiratory/Chest: chest wall non-tender, lungs clear Cardiovascular: normal peripheral pulses Laboratory Tests 07/11/19 13:30: Vancomycin Level Trough 19.6H, Anti-Mitochondrial Antibody [Pending] 07/12/19 06:00: White Blood Count 11.7H, Red Blood Count 3.06L, Hemoglobin 9.6L, Hematocrit 29.6L, Mean Corpuscular Volume 97, Mean Corpuscular Hemoglobin 31.3H, Mean Corpuscular Hemoglobin Concent 32.4, Red Cell Distribution Width 20.2H, Platelet Count 75L, Mean Platelet Volume 7.9, Neutrophils (%) (Auto) , Lymphocytes (%) (Auto) , Monocytes (%) (Auto) , Eosinophils (%) (Auto) , Basophils (%) (Auto) , Differential Total Cells Counted 100, Neutrophils % ( Manual) 91H, Lymphocytes % (Manual) 5L, Monocytes % (Manual) 2, Eosinophils % ( Manual) 2, Basophils % (Manual) 0, Band Neutrophils 0, Platelet Estimate DecreasedL, Platelet Morphology Normal, Anisocytosis 2+, Sodium Level 133L, Potassium Level 4.2, Chloride Level 105, Carbon Dioxide Level 19L, Anion Gap 9, Blood Urea Nitrogen 29H, Creatinine 0.9, Estimat Glomerular Filtration Rate > 60 , Glucose Level 118H, Calcium Level 8.0L, Total Bilirubin 14.7H, Direct Bilirubin 10.6H, Aspartate Amino Transf (AST/SGOT) 54H, Alanine Aminotransferase (ALT/SGPT) 57, Alkaline Phosphatase 131H, Total Protein 4.6L, Albumin 1.4L, Globulin 3.2, Albumin/Globulin Ratio 0.4L Current Medications Medications (Trade) Dose Ordered Sig/Naseem Route PRN Reason Start Time Stop Time Status Last Admin Dose Admin Chlorhexidine Gluconate (Mer-Hex 2%) 1 applic DAILY@1999 TOPIC 07/04/19 20:00 08/01/19 19:59 07/11/19 21:20 Dextrose (Dextrose 50%) 25 ml Q30M PRN IV Hypoglycemia 07/04/19 16:00 07/28/19 04:59 Dextrose (Dextrose 50%) 50 ml Q30M PRN IV Hypoglycemia 07/04/19 16:00 07/28/19 04:59 Famotidine (Pepcid I.v.) 20 mg Q12HR IVP 07/04/19 21:00 08/01/19 20:59 07/12/19 09:21 Insulin Aspart (NovoLOG) BEFORE MEALS AND HS SUBQ 07/04/19 16:30 07/28/19 06:29 07/11/19 21:53 Meropenem 1 gm/ Sodium Chloride 100 ml @ 200 mls/hr Q8HR IVPB 07/11/19 22:00 07/20/19 23:59 07/12/19 06:22 Ondansetron HCl (Zofran) 4 mg Q6H PRN IVP Nausea & Vomiting 07/04/19 15:43 08/03/19 15:42 Sodium Chloride 1,000 ml @ 50 mls/hr Q20H IV 07/04/19 15:42 08/03/19 15:41 07/12/19 03:43 Vancomycin HCl (Firvanq) 125 mg Q6HR ORAL 07/12/19 00:00 07/19/19 00:00 07/12/19 06:21 Vancomycin HCl (Vanco rx to dose) 1 ea DAILY PRN MISC Per rx protocol 07/05/19 09:00 08/01/19 12:29 Vancomycin HCl 500 mg/Dextrose 110 ml @ 110 mls/hr Q12HR@0300,1500 IVPB 07/11/19 15:00 07/16/19 14:59 07/12/19 03:01 James Zeng MD Jul 12, 2019 10:15
[2019-07-12 12:00] VITALS: BP 98/59
--- NOTE | 2019-07-12 12:41 | GI Progress Note ---
Assessment/Plan Problems: (1) Acute GI bleeding ICD Codes: K92.2 - Gastrointestinal hemorrhage, unspecified SNOMED: 95608998 (2) GI bleed ICD Codes: K92.2 - Gastrointestinal hemorrhage, unspecified SNOMED: 92844303 (3) Varices, esophageal ICD Codes: I85.00 - Esophageal varices without bleeding SNOMED: 46556323 (4) Cirrhosis ICD Codes: K74.60 - Unspecified cirrhosis of liver SNOMED: 00343689 Status: stable Status Narrative Discussed with Dr. Garcia. Assessment/Plan Assessment - Non alcoholic cirrhosis, rising bili - UGIB due to esophageal varicies s/p banding - C Diff, on IV flagyl (no oral access for PO vanco at this time) - Resp failure - anemia - lactic acidosis - leukocytosis - guarded - s/p paracentesis yielding approx 5 liters - MELD score 19 - LYRIC, SMA negative Recommendations - serial CBC - transfuse PRN to keep Hg > 7 - on diet - H2B - follow labs - may need repeat paracentesis - PT to ambulate - albumin - overall poor prognosis, home with hospice The patient was seen and examined at bedside and all new and available data was reviewed in the patients chart. I agree with the above findings, impression and plan. (Patient seen earlier today. Signature stamp does not reflect patient encounter time.). - Mina Garcia MD Subjective Subjective limited Objective Last 24 Hour Vital Signs Date Time Temp Pulse Resp B/P (MAP) Pulse Ox O2 Delivery O2 Flow Rate FiO2 07/12/19 09:00 Nasal Cannula 2.0 07/12/19 08:12 94 Nasal Cannula 2.0 28 07/12/19 08:00 87 07/12/19 08:00 97.2 92 20 95/64 (74) 97 07/12/19 04:00 97.5 93 18 103/59 (74) 97 07/12/19 04:00 94 07/12/19 00:00 97.4 89 16 99/59 (72) 97 07/12/19 00:00 89 07/11/19 21:00 Nasal Cannula 2.0 07/11/19 20:00 97.7 86 16 101/67 (78) 96 07/11/19 20:00 91 07/11/19 16:00 97.5 91 18 98/51 (67) 96 07/11/19 16:00 91 Intake and Output 07/11/19 07/12/19 18:59 06:59 Intake Total 490 ml 520 ml Output Total 375 ml 400 ml Balance 115 ml 120 ml Intake Oral 490 ml IV Total 520 ml Output Urine Total 375 ml 400 ml Laboratory Tests Test 07/11/19 13:30 07/12/19 06:00 Vancomycin Level Trough 19.6 ug/mL (5.0-12.0) H Anti-Mitochondrial Antibody Pending White Blood Count 11.7 K/UL (4.8-10.8) H Red Blood Count 3.06 M/UL (4.20-5.40) L Hemoglobin 9.6 G/DL (12.0-16.0) L Hematocrit 29.6 % (37.0-47.0) L Mean Corpuscular Volume 97 FL (80-99) Mean Corpuscular Hemoglobin 31.3 PG (27.0-31.0) H Mean Corpuscular Hemoglobin Concent 32.4 G/DL (32.0-36.0) Red Cell Distribution Width 20.2 % (11.6-14.8) H Platelet Count 75 K/UL (150-450) L Mean Platelet Volume 7.9 FL (6.5-10.1) Neutrophils (%) (Auto) % (45.0-75.0) Lymphocytes (%) (Auto) % (20.0-45.0) Monocytes (%) (Auto) % (1.0-10.0) Eosinophils (%) (Auto) % (0.0-3.0) Basophils (%) (Auto) % (0.0-2.0) Differential Total Cells Counted 100 Neutrophils % (Manual) 91 % (45-75) H Lymphocytes % (Manual) 5 % (20-45) L Monocytes % (Manual) 2 % (1-10) Eosinophils % (Manual) 2 % (0-3) Basophils % (Manual) 0 % (0-2) Band Neutrophils 0 % (0-8) Platelet Estimate Decreased L Platelet Morphology Normal Anisocytosis 2+ Sodium Level 133 MMOL/L (136-145) L Potassium Level 4.2 MMOL/L (3.5-5.1) Chloride Level 105 MMOL/L (98-107) Carbon Dioxide Level 19 MMOL/L (21-32) L Anion Gap 9 mmol/L (5-15) Blood Urea Nitrogen 29 mg/dL (7-18) H Creatinine 0.9 MG/DL (0.55-1.30) Estimat Glomerular Filtration Rate > 60 mL/min (>60) Glucose Level 118 MG/DL (74-106) H Calcium Level 8.0 MG/DL (8.5-10.1) L Total Bilirubin 14.7 MG/DL (0.2-1.0) H Direct Bilirubin 10.6 MG/DL (0.0-0.3) H Aspartate Amino Transf (AST/SGOT) 54 U/L (15-37) H Alanine Aminotransferase (ALT/SGPT) 57 U/L (12-78) Alkaline Phosphatase 131 U/L (46-116) H Total Protein 4.6 G/DL (6.4-8.2) L Albumin 1.4 G/DL (3.4-5.0) L Globulin 3.2 g/dL Albumin/Globulin Ratio 0.4 (1.0-2.7) L Height (Feet): 5 Height (Inches): 2.00 Weight (Pounds): 146 General Appearance: WD/WN, no apparent distress, alert Cardiovascular: normal rate Respiratory/Chest: normal breath sounds, no respiratory distress Abdominal Exam: normal bowel sounds, non tender, soft Extremities: non-tender Luisana Walker NP Jul 12, 2019 12:41
--- NOTE | 2019-07-12 14:51 | NUR ---
DISCHARGE PLANNING: NOTE REP FROM [facility] IS MEETING WITH FAMILY. FAMILY AND PT TO AGREE TO HOSPICE OMER OF [facility] T: [phone]
--- NOTE | 2019-07-12 15:41 | Surgery Progress Note ---
Surgery Progress Note Subjective Additional Comments leukocytosis improved hepatic dysfunction worse jaundice no pain minimal appetite Objective Last 24 Hour Vital Signs Date Time Temp Pulse Resp B/P (MAP) Pulse Ox O2 Delivery O2 Flow Rate FiO2 07/12/19 12:00 93 07/12/19 12:00 98.5 95 21 98/59 (72) 98 07/12/19 09:00 Nasal Cannula 2.0 07/12/19 08:12 94 Nasal Cannula 2.0 28 07/12/19 08:00 87 07/12/19 08:00 97.2 92 20 95/64 (74) 97 07/12/19 04:00 97.5 93 18 103/59 (74) 97 07/12/19 04:00 94 07/12/19 00:00 97.4 89 16 99/59 (72) 97 07/12/19 00:00 89 07/11/19 21:00 Nasal Cannula 2.0 07/11/19 20:00 97.7 86 16 101/67 (78) 96 07/11/19 20:00 91 07/11/19 16:00 97.5 91 18 98/51 (67) 96 07/11/19 16:00 91 I&O Intake and Output 07/11/19 07/12/19 19:00 07:00 Intake Total 490 ml 520 ml Output Total 375 ml 400 ml Balance 115 ml 120 ml Intake Oral 490 ml IV Total 520 ml Output Urine Total 375 ml 400 ml Cardiovascular: RSR Respiratory: clear Abdomen: soft, present bowel sounds, non-distended Extremities: no cyanosis, other Laboratory Tests Test 07/12/19 06:00 White Blood Count 11.7 K/UL (4.8-10.8) H Red Blood Count 3.06 M/UL (4.20-5.40) L Hemoglobin 9.6 G/DL (12.0-16.0) L Hematocrit 29.6 % (37.0-47.0) L Mean Corpuscular Volume 97 FL (80-99) Mean Corpuscular Hemoglobin 31.3 PG (27.0-31.0) H Mean Corpuscular Hemoglobin Concent 32.4 G/DL (32.0-36.0) Red Cell Distribution Width 20.2 % (11.6-14.8) H Platelet Count 75 K/UL (150-450) L Mean Platelet Volume 7.9 FL (6.5-10.1) Neutrophils (%) (Auto) % (45.0-75.0) Lymphocytes (%) (Auto) % (20.0-45.0) Monocytes (%) (Auto) % (1.0-10.0) Eosinophils (%) (Auto) % (0.0-3.0) Basophils (%) (Auto) % (0.0-2.0) Differential Total Cells Counted 100 Neutrophils % (Manual) 91 % (45-75) H Lymphocytes % (Manual) 5 % (20-45) L Monocytes % (Manual) 2 % (1-10) Eosinophils % (Manual) 2 % (0-3) Basophils % (Manual) 0 % (0-2) Band Neutrophils 0 % (0-8) Platelet Estimate Decreased L Platelet Morphology Normal Anisocytosis 2+ Sodium Level 133 MMOL/L (136-145) L Potassium Level 4.2 MMOL/L (3.5-5.1) Chloride Level 105 MMOL/L (98-107) Carbon Dioxide Level 19 MMOL/L (21-32) L Anion Gap 9 mmol/L (5-15) Blood Urea Nitrogen 29 mg/dL (7-18) H Creatinine 0.9 MG/DL (0.55-1.30) Estimat Glomerular Filtration Rate > 60 mL/min (>60) Glucose Level 118 MG/DL (74-106) H Calcium Level 8.0 MG/DL (8.5-10.1) L Total Bilirubin 14.7 MG/DL (0.2-1.0) H Direct Bilirubin 10.6 MG/DL (0.0-0.3) H Aspartate Amino Transf (AST/SGOT) 54 U/L (15-37) H Alanine Aminotransferase (ALT/SGPT) 57 U/L (12-78) Alkaline Phosphatase 131 U/L (46-116) H Total Protein 4.6 G/DL (6.4-8.2) L Albumin 1.4 G/DL (3.4-5.0) L Globulin 3.2 g/dL Albumin/Globulin Ratio 0.4 (1.0-2.7) L Plan Problems: (1) Cirrhosis (2) Varices, esophageal (3) GI bleed Assessment & Plan: 69F with acute GI bleed. etiology likely prior varices anemia on admission and transfused extubated and improving downgraded comfortable EGD noted okay for diet iv fluids PPI worsening hepatic dysfunction decompensating prognosis still guarded d/c planning will follow with recs thank you (4) Acute GI bleeding Zaid Wong Jul 12, 2019 15:41
[2019-07-12 16:00] VITALS: BP 104/63
--- NOTE | 2019-07-12 17:00 | NUR ---
NURSE NOTES: Pt stable no distress presented denies any abd discomfort,daughter at bedside.Pt had BM ,kept dry and clean.
--- NOTE | 2019-07-12 17:08 | NUR ---
P.T WEEKLY PROGRESS NOTES: PATIENT WAS BEING SEEN FOR SKILLED P.T THIS PAST WEEK FOR STRENGTHENING AND ADL/FUNCTIONAL MOBILITY TRAINING. PATIENT IS LIMITED BY POOR ACTIVITY TOLERANCE SECONDARY MEDICAL ISSUES. PATIENT HOWEVER IS MOTIVATED TO GET BETTER. PATIENT CURRENTLY REQUIRE MOD/MAX X 1 FOR BED MOBILITIES. PATIENT ABLE TO SIT UNSUPPORTED FOR APPROX 10 MINS AT THE EOB WITH BUE SUPPORT HOWEVER TOO WEAK TO STAND AND TRANSFER AT THIS TIME. WILL CONTINUE WITH POC. Addendum: 07/12/19 at 1715 by BROOKE RAE PT Amended: Links added.
--- NOTE | 2019-07-12 19:35 | NUR ---
OBTAINED REPORT FROM LISA HOYOS, PT RESTING IN BED.
--- NOTE | 2019-07-12 19:35 | NUR ---
HAND-OFF: Report given to Tea Greene RN.
[2019-07-12 20:00] VITALS: BP 95/64
[2019-07-12] MEDS: Dyna-Hex 2% Top Sol 2oz TOPIC SCH (20:00)
[2019-07-13 01:00] VITALS: BP 117/64
[2019-07-13] MEDS: Vancomycin oral 125mg/2.5ml ORAL SCH ×4 (01:25→18:23)
[2019-07-13] MEDS: Vancomycin 500mg/D5W 110ml IVPB SCH ×2 (03:00)
--- NOTE | 2019-07-13 03:00 | NUR ---
VANCO TROUGH RESULTED HIGH, PHARMACY ([facility]) NOTIFIED. INSTRUCTED TO HOLD VANCO IV MEDICATION. PHARMACY WILL ADJUST DOSE.
[2019-07-13 04:00] VITALS: BP 127/65
[2019-07-13] MEDS: NovoLOG Insulin Flexpen SUBQ SCH ×3 (05:33→16:30)
[2019-07-13 05:53] LABS: HEMATOCRIT 31.9 % (37.0-47.0); HEMOGLOBIN 10.3 G/DL (12.0-16.0); MEAN CORPUSCULAR VOLUME 96 FL (80-99); PLATELET COUNT 89 K/UL (150-450); RED BLOOD COUNT 3.32 M/UL (4.20-5.40); RED CELL DISTRIBUTION WIDTH 19.5 % (11.6-14.8)
[2019-07-13 06:13] LABS: ALANINE AMINOTRANSFERASE 53 U/L (12-78); ALBUMIN 1.4 G/DL (3.4-5.0); ALBUMIN/GLOBULIN RATIO 0.4 (1.0-2.7); ALKALINE PHOSPHATASE 139 U/L (46-116); ANION GAP 10 mmol/L (5-15); ASPARTATE AMINO TRANSFERASE 60 U/L (15-37); BILIRUBIN,TOTAL 16.2 MG/DL (0.2-1.0); BLOOD UREA NITROGEN 32 mg/dL (7-18); CALCIUM 7.9 MG/DL (8.5-10.1); CARBON DIOXIDE 19 MMOL/L (21-32); CHLORIDE 105 MMOL/L (98-107); CREATININE 0.8 MG/DL (0.55-1.30); POTASSIUM 4.4 MMOL/L (3.5-5.1); SODIUM 134 MMOL/L (136-145)
[2019-07-13 06:14] LABS: BILIRUBIN,DIRECT 11.7 MG/DL (0.0-0.3)
--- NOTE | 2019-07-13 07:00 | NUR ---
GAVE FULL REPORT TO VIDA HOYOS, PT RESTING IN BED.
--- NOTE | 2019-07-13 07:41 | NUR ---
NURSE NOTES: Received report from ROMAIN Metcalf. Patient in bed resting, no active s/s cardiac, respiratory distress noticed at this time. Patient on 2L oxygen via NC, SR with HR 90, AOx4. PICC line on right upper arm, asymptomatic, patent, intact. Rouse Catheter draining well to gravity. Bed in lowest position, side rails upx2, call light within reach. Will continue to monitor.
[2019-07-13 08:00] VITALS: BP 110/66
--- NOTE | 2019-07-13 08:41 | Pulmonology Progress Note ---
Assessment/Plan Assessment/Plan IMPRESSION: 1. Respiratory failure. Resolved. Extubated 07/03/19 2. Upper GI bleed, likely gastric varices. S/p EGD 3. Diabetes mellitus. 4. Anemia. Hgb stable 5. Thrombocytopenia; DISCUSSION: Low flow O2 Continue lactulose Abx for C diff Slowly improving No fever James Zeng M.D. Subjective Interval Events: No fever; has mild leucocytosis Constitutional: Reports: no symptoms HEENT: Repors: no symptoms Respiratory: Reports: no symptoms Cardiovascular: Reports: no symptoms Gastrointestinal/Abdominal: Reports: no symptoms Allergies: Coded Allergies: No Known Allergies (Unverified , 06/27/19) Objective Last 24 Hour Vital Signs Date Time Temp Pulse Resp B/P (MAP) Pulse Ox O2 Delivery O2 Flow Rate FiO2 07/13/19 04:00 98.5 90 18 127/65 (85) 97 07/13/19 04:00 95 07/13/19 01:00 98.5 79 18 117/64 (81) 98 07/13/19 00:00 95 07/12/19 20:00 Nasal Cannula 2.0 07/12/19 20:00 97.2 93 20 95/64 (74) 95 07/12/19 20:00 95 07/12/19 16:00 97.7 100 20 104/63 (77) 97 07/12/19 16:00 95 07/12/19 12:00 93 07/12/19 12:00 98.5 95 21 98/59 (72) 98 07/12/19 09:00 Nasal Cannula 2.0 Intake and Output 07/12/19 07/13/19 19:00 07:00 Output Total 300 ml 700 ml Balance -300 ml -700 ml Output Urine Total 300 ml 700 ml General Appearance: no acute distress HEENT: normocephalic Respiratory/Chest: chest wall non-tender, lungs clear Cardiovascular: normal peripheral pulses Laboratory Tests 07/13/19 02:00: Vancomycin Level Trough 21.4H 07/13/19 05:20: White Blood Count 14.0H, Red Blood Count 3.32L, Hemoglobin 10.3L, Hematocrit 31.9L, Mean Corpuscular Volume 96, Mean Corpuscular Hemoglobin 31.0, Mean Corpuscular Hemoglobin Concent 32.3, Red Cell Distribution Width 19.5H, Platelet Count 89L, Mean Platelet Volume 7.8, Neutrophils (%) (Auto) , Lymphocytes (%) (Auto) , Monocytes (%) (Auto) , Eosinophils (%) (Auto) , Basophils (%) (Auto) , Sodium Level 134L, Potassium Level 4.4, Chloride Level 105, Carbon Dioxide Level 19L, Anion Gap 10, Blood Urea Nitrogen 32H, Creatinine 0.8, Estimat Glomerular Filtration Rate > 60, Glucose Level 93, Calcium Level 7.9L, Total Bilirubin 16.2H, Direct Bilirubin 11.7H, Aspartate Amino Transf (AST/SGOT) 60H, Alanine Aminotransferase (ALT/SGPT) 53, Alkaline Phosphatase 139H, Total Protein 4.7L, Albumin 1.4L, Globulin 3.3, Albumin/ Globulin Ratio 0.4L Current Medications Medications (Trade) Dose Ordered Sig/Naseem Route PRN Reason Start Time Stop Time Status Last Admin Dose Admin Chlorhexidine Gluconate (Mer-Hex 2%) 1 applic DAILY@2000 TOPIC 07/04/19 20:00 08/01/19 19:59 07/11/19 21:20 Dextrose (Dextrose 50%) 25 ml Q30M PRN IV Hypoglycemia 07/04/19 16:00 07/28/19 04:59 Dextrose (Dextrose 50%) 50 ml Q30M PRN IV Hypoglycemia 07/04/19 16:00 07/28/19 04:59 Famotidine (Pepcid I.v.) 20 mg Q12HR IVP 07/04/19 21:00 08/01/19 20:59 07/12/19 20:48 Insulin Aspart (NovoLOG) BEFORE MEALS AND HS SUBQ 07/04/19 16:30 07/28/19 06:29 07/12/19 20:49 Meropenem 1 gm/ Sodium Chloride 100 ml @ 200 mls/hr Q8HR IVPB 07/11/19 22:00 07/20/19 23:59 07/13/19 05:19 Ondansetron HCl (Zofran) 4 mg Q6H PRN IVP Nausea & Vomiting 07/04/19 15:43 08/03/19 15:42 Sodium Chloride 1,000 ml @ 50 mls/hr Q20H IV 07/04/19 15:42 08/03/19 15:41 07/13/19 05:19 Vancomycin HCl (Firvanq) 125 mg Q6HR ORAL 07/12/19 00:00 07/19/19 00:00 07/13/19 05:33 Vancomycin HCl (Vanco rx to dose) 1 ea DAILY PRN MISC Per rx protocol 07/05/19 09:00 08/01/19 12:29 Vancomycin HCl 750 mg/Sodium Chloride 275 ml @ 183.333 mls/hr Q24H IVPB 07/13/19 10:00 07/18/19 09:59 James Zeng MD Jul 13, 2019 08:41
--- NOTE | 2019-07-13 09:11 | Hematology/Onc Progress Note ---
Assessment/Plan Assessment/Plan Assessment and Recs: # Anemia of GI bleed -- patient presents with occult+ bleeding, anemia panel reviewed iron stores are moderate but given 4 units prbc, can be falsely moderate, recheck in several days, anemia is due to variceal bleed --> as per GI eval, may need endoscopy-> s/p egd with variceal banding prior --> has been started on ppi --> cea has been ordered - normal --> Hgb goal >7. Transfuse prn. --> (s/p 4 units prbc) --> Iron x 1 dose has been given --> Medications have been reviewed --> continue ppi and octreotide prn per gi --> hgb trend 8.8-->8.8-->8.2-->7.2->9.6-->9.1-->8.8-->8.7-->9-->9.8-->9.6--> 10.3 # Thrombocytopenia - potential causes multifactorial, evaluate liver and viral etiologies to begin, also could be related to underlying medications patient has received. In this case is due to etoh abuse, esoph varices and cirrhosis is noted, also potential c.diff infection --> Hep panel pending and HIV negative --> US abd does show cirrhosis --> Peripheral smear ordered to evaluate for blasts /schistocytes does not show any --> abx and other meds have been reviewed --> ok for ppx if plt >50k w/ either heparin or lovenox --> Transfuse if Plt < 20k and fever, or if Plt < 10k without fever --> plt count 90k-->46k-->63k-->68k-->52k-->48k->77k-->62-->75k-->89k --> EGD per gi --> s/p plt transfusion on 06/29 # Leukocytosis rule out infection --> on abx, continue per id # Varices, esophageal --> potential rupture as per gi recs --> off octreotide # Cirrhosis --> with hepatic enceph --> gi recs prn # Resp failure did require intubation during hospitalization --> now extubated on ra # Hypokalemia with dec K --> given IV k as per pcp The timing of this note does not necessarily reflect the time of the patient was seen. GREATLY APPRECIATE CONSULTATION. Subjective Allergies: Coded Allergies: No Known Allergies (Unverified , 06/27/19) Subjective 06/29: icu, s/p egd and plt tx, levo gtt 07/01: remains on vent, ivelisse Montero rn, with c. diff + and on abx, holding off weaning 07/02: remains on vent, c.diff abx, weaning tolerated well, no changed, ivelisse rn 07/03: no bleeding no chills no night sweats reported 07/04: seen and ivelisse gage in the am, now downgraded out of icu 07/05: eating breakfast with administrative coordinator, no f/c, no night sweats 07/06: no f/c, vs stable, denies pain, on abx, labs noted 07/07: labs reviewed, plt slightly lower, on abx for c.diff 07/09: no fevers, no chulls, labs reviewed, on abx 07/10: labs reviewed, bili is higher, seen by gi 07/11: cxr-->new or increased right pleural fluid, increasing interstitial congestion, on abx, no f/c, s/p paracentesis 07/12: potentially home with hospice soon, no bleeding reported 07/13: vs stable, no f/c, on abx, no acute events, denies pain, no distress Objective Objective Current Medications Medications (Trade) Dose Ordered Sig/Naseem Route PRN Reason Start Time Stop Time Status Last Admin Dose Admin Chlorhexidine Gluconate (Mer-Hex 2%) 1 applic DAILY@1999 TOPIC 07/04/19 20:00 08/01/19 19:59 07/11/19 21:20 Dextrose (Dextrose 50%) 25 ml Q30M PRN IV Hypoglycemia 07/04/19 16:00 07/28/19 04:59 Dextrose (Dextrose 50%) 50 ml Q30M PRN IV Hypoglycemia 07/04/19 16:00 07/28/19 04:59 Famotidine (Pepcid I.v.) 20 mg Q12HR IVP 07/04/19 21:00 08/01/19 20:59 07/12/19 20:48 Insulin Aspart (NovoLOG) BEFORE MEALS AND HS SUBQ 07/04/19 16:30 07/28/19 06:29 07/12/19 20:49 Meropenem 1 gm/ Sodium Chloride 100 ml @ 200 mls/hr Q8HR IVPB 07/11/19 22:00 07/20/19 23:59 07/13/19 05:19 Ondansetron HCl (Zofran) 4 mg Q6H PRN IVP Nausea & Vomiting 07/04/19 15:43 08/03/19 15:42 Sodium Chloride 1,000 ml @ 50 mls/hr Q20H IV 07/04/19 15:42 08/03/19 15:41 07/13/19 05:19 Vancomycin HCl (Firvanq) 125 mg Q6HR ORAL 07/12/19 00:00 07/19/19 00:00 07/13/19 05:33 Vancomycin HCl (Vanco rx to dose) 1 ea DAILY PRN MISC Per rx protocol 07/05/19 09:00 08/01/19 12:29 Vancomycin HCl 750 mg/Sodium Chloride 275 ml @ 183.333 mls/hr Q24H IVPB 07/13/19 10:00 07/18/19 09:59 Last 24 Hour Vital Signs Date Time Temp Pulse Resp B/P (MAP) Pulse Ox O2 Delivery O2 Flow Rate FiO2 07/13/19 04:00 98.5 90 18 127/65 (85) 97 07/13/19 04:00 95 07/13/19 01:00 98.5 79 18 117/64 (81) 98 07/13/19 00:00 95 07/12/19 20:00 Nasal Cannula 2.0 07/12/19 20:00 97.2 93 20 95/64 (74) 95 07/12/19 20:00 95 07/12/19 16:00 97.7 100 20 104/63 (77) 97 07/12/19 16:00 95 07/12/19 12:00 93 07/12/19 12:00 98.5 95 21 98/59 (72) 98 07/12/19 09:00 Nasal Cannula 2.0 07/12/19 08:12 94 Nasal Cannula 2.0 28 07/12/19 08:00 87 07/12/19 08:00 97.2 92 20 95/64 (74) 97 07/12/19 04:00 97.5 93 18 103/59 (74) 97 07/12/19 04:00 94 07/12/19 00:00 97.4 89 16 99/59 (72) 97 07/12/19 00:00 89 07/11/19 21:00 Nasal Cannula 2.0 07/11/19 20:00 97.7 86 16 101/67 (78) 96 07/11/19 20:00 91 07/11/19 16:00 97.5 91 18 98/51 (67) 96 07/11/19 16:00 91 07/11/19 12:00 91 07/11/19 12:00 98.4 91 18 104/63 (77) 97 Intake and Output 07/12/19 07/13/19 19:00 07:00 Output Total 300 ml 700 ml Balance -300 ml -700 ml Output Urine Total 300 ml 700 ml Labs Test 07/11/19 05:50 07/11/19 13:30 07/12/19 06:00 07/13/19 02:00 White Blood Count 12.9 K/UL (4.8-10.8) 11.7 K/UL (4.8-10.8) Red Blood Count 3.13 M/UL (4.20-5.40) 3.06 M/UL (4.20-5.40) Hemoglobin 9.8 G/DL (12.0-16.0) 9.6 G/DL (12.0-16.0) Hematocrit 30.5 % (37.0-47.0) 29.6 % (37.0-47.0) Mean Corpuscular Volume 97 FL (80-99) 97 FL (80-99) Mean Corpuscular Hemoglobin 31.5 PG (27.0-31.0) 31.3 PG (27.0-31.0) Mean Corpuscular Hemoglobin Concent 32.3 G/DL (32.0-36.0) 32.4 G/DL (32.0-36.0) Red Cell Distribution Width 20.6 % (11.6-14.8) 20.2 % (11.6-14.8) Platelet Count 62 K/UL (150-450) 75 K/UL (150-450) Mean Platelet Volume 6.6 FL (6.5-10.1) 7.9 FL (6.5-10.1) Neutrophils (%) (Auto) % (45.0-75.0) % (45.0-75.0) Lymphocytes (%) (Auto) % (20.0-45.0) % (20.0-45.0) Monocytes (%) (Auto) % (1.0-10.0) % (1.0-10.0) Eosinophils (%) (Auto) % (0.0-3.0) % (0.0-3.0) Basophils (%) (Auto) % (0.0-2.0) % (0.0-2.0) Differential Total Cells Counted 100 100 Neutrophils % (Manual) 95 % (45-75) 91 % (45-75) Lymphocytes % (Manual) 2 % (20-45) 5 % (20-45) Monocytes % (Manual) 3 % (1-10) 2 % (1-10) Eosinophils % (Manual) 0 % (0-3) 2 % (0-3) Basophils % (Manual) 0 % (0-2) 0 % (0-2) Band Neutrophils 0 % (0-8) 0 % (0-8) Platelet Estimate Decreased Decreased Platelet Morphology Normal Normal Hypochromasia 2+ Anisocytosis 2+ 2+ Prothrombin Time 20.9 SEC (9.30-11.50) Prothromb Time International Ratio 2.0 (0.9-1.1) Sodium Level 135 MMOL/L (136-145) 133 MMOL/L (136-145) Potassium Level 4.3 MMOL/L (3.5-5.1) 4.2 MMOL/L (3.5-5.1) Chloride Level 108 MMOL/L (98-107) 105 MMOL/L (98-107) Carbon Dioxide Level 19 MMOL/L (21-32) 19 MMOL/L (21-32) Anion Gap 8 mmol/L (5-15) 9 mmol/L (5-15) Blood Urea Nitrogen 27 mg/dL (7-18) 29 mg/dL (7-18) Creatinine 0.8 MG/DL (0.55-1.30) 0.9 MG/DL (0.55-1.30) Estimat Glomerular Filtration Rate > 60 mL/min (>60) > 60 mL/min (>60) Glucose Level 84 MG/DL (74-106) 118 MG/DL (74-106) Calcium Level 7.8 MG/DL (8.5-10.1) 8.0 MG/DL (8.5-10.1) Iron Level 19 ug/dL (50-175) Total Iron Binding Capacity 110 ug/dL (250-450) Percent Iron Saturation 17 % (15-50) Unsaturated Iron Binding 91 ug/dL (112-346) Total Bilirubin 11.6 MG/DL (0.2-1.0) 14.7 MG/DL (0.2-1.0) Direct Bilirubin 8.5 MG/DL (0.0-0.3) 10.6 MG/DL (0.0-0.3) Aspartate Amino Transf (AST/SGOT) 57 U/L (15-37) 54 U/L (15-37) Alanine Aminotransferase (ALT/SGPT) 66 U/L (12-78) 57 U/L (12-78) Alkaline Phosphatase 133 U/L (46-116) 131 U/L (46-116) Total Protein 4.5 G/DL (6.4-8.2) 4.6 G/DL (6.4-8.2) Albumin 1.2 G/DL (3.4-5.0) 1.4 G/DL (3.4-5.0) Globulin 3.3 g/dL 3.2 g/dL Albumin/Globulin Ratio 0.4 (1.0-2.7) 0.4 (1.0-2.7) Alpha Fetoprotein 2.1 ng/mL (0.0-8.3) Anti-Nuclear Antibody Screen Negative (Negative) Vancomycin Level Trough 19.6 ug/mL (5.0-12.0) 21.4 ug/mL (5.0-12.0) Test 07/13/19 05:20 White Blood Count 14.0 K/UL (4.8-10.8) Red Blood Count 3.32 M/UL (4.20-5.40) Hemoglobin 10.3 G/DL (12.0-16.0) Hematocrit 31.9 % (37.0-47.0) Mean Corpuscular Volume 96 FL (80-99) Mean Corpuscular Hemoglobin 31.0 PG (27.0-31.0) Mean Corpuscular Hemoglobin Concent 32.3 G/DL (32.0-36.0) Red Cell Distribution Width 19.5 % (11.6-14.8) Platelet Count 89 K/UL (150-450) Mean Platelet Volume 7.8 FL (6.5-10.1) Neutrophils (%) (Auto) % (45.0-75.0) Lymphocytes (%) (Auto) % (20.0-45.0) Monocytes (%) (Auto) % (1.0-10.0) Eosinophils (%) (Auto) % (0.0-3.0) Basophils (%) (Auto) % (0.0-2.0) Sodium Level 134 MMOL/L (136-145) Potassium Level 4.4 MMOL/L (3.5-5.1) Chloride Level 105 MMOL/L (98-107) Carbon Dioxide Level 19 MMOL/L (21-32) Anion Gap 10 mmol/L (5-15) Blood Urea Nitrogen 32 mg/dL (7-18) Creatinine 0.8 MG/DL (0.55-1.30) Estimat Glomerular Filtration Rate > 60 mL/min (>60) Glucose Level 93 MG/DL (74-106) Calcium Level 7.9 MG/DL (8.5-10.1) Total Bilirubin 16.2 MG/DL (0.2-1.0) Direct Bilirubin 11.7 MG/DL (0.0-0.3) Aspartate Amino Transf (AST/SGOT) 60 U/L (15-37) Alanine Aminotransferase (ALT/SGPT) 53 U/L (12-78) Alkaline Phosphatase 139 U/L (46-116) Total Protein 4.7 G/DL (6.4-8.2) Albumin 1.4 G/DL (3.4-5.0) Globulin 3.3 g/dL Albumin/Globulin Ratio 0.4 (1.0-2.7) Height (Feet): 5 Height (Inches): 2.00 Weight (Pounds): 146 Objective Physical Exam: Vitals: reviewed General Appearance: NAD HEENT: normocephalic, atraumatic ++ jaundice++ Respiratory/Chest: normal breath sounds bilaterally Cardiovascular/Chest: normal peripheral pulses, normal rate Abdomen: normal bowel sounds, soft, nontender Extremities: normal range of motion Anthony Chaudhary MD Jul 13, 2019 09:11
[2019-07-13] MEDS ORDERED: Vancomycin 750mg/NS 275ml IVPB SCH ×2 (10:00)
--- NOTE | 2019-07-13 11:23 | NUR ---
Social Service Note Follow up call placed to [facility] [phone]. Per Donny they are coordinating the delivery of DME. Donny will contact [facility] once confirmed. Will continue to follow up. Addendum: 07/13/19 at 1403 by SOFIA EATON Social Service Note [facility] confirmed delivery of DME by 5pm. Hospice nurse will be at patient's home at 7pm to receive patient. Ambulance transportation arranged for 630pm by [employer] [phone] Ruiz agreeable with dc plan.
--- NOTE | 2019-07-13 11:24 | General Progress Note ---
Assessment/Plan Status: stable Assessment/Plan: 69-year-old female with past medical history of liver cirrhosis without known etiology presents for hematemesis- overall worsening, now DNR/DNI #Hypovolemic/ septic shock secondary to hematemesis- resolved off pressors, e.coli pna, mrsa pna, sepsis, c.diff. +, leukocytosis, fevers, respiratory failure, ? sbp -s/p PRBC, platelet transfusion on admission- Hemoglobin stable -GI consult, appreciate recs: EGD 06/29/2019, esophageal varices x7 banding. Blood in abdomen. A limited however no active bleeding noted -Continue to monitor Hb. PRBC if < 7 or if acute bleed with Hb < 8 -Surgery consult, appreciate recs -Cardiology consult, appreciate recs -Echo: ef wnl -prognosis guarded -IV zosyn, IV and PO vancomycin. WBC trending up again ID consultation appreciated #Liver cirrhosis with esophageal varices , ? sbp -Status post EGD as above -PPI -s/p Octreotide drip -Monitor CBC and BMP -Patient denies alcohol use, family states reason for liver cirrhosis is unknown. Differentials include Saunders versus autoimmune causes. Hepatitis panel negative, LYRIC, anti-mitochondrial and F-actin igG negative. Acetaminophen level 3, -Right upper quadrant ultrasound: Reviewed, no gallstones -Continue lactulose -CEA normal -prognosis guarded, worsening bilirubin. worsening leukocytosis. Approaching fulminant liver failure. Needs transplant. Case discussed with GI TOUCH UP CARVER Jarvis Whitfield and Dr. Maurer #Hepatic encephalopathy -Continue lactulose as per above #Intubation for airway protection and encephalopathy, extubated 07/03 -Pulmonology consult, appreciate recs #Urinary retention -Continue Rouse for now due to poor mobility -Monitor ins and outs -UA negative #Elevated troponin, likely secondary to demand ischemia -Cardiology consulted, appreciate recs -Echo: Within normal limits -Troponins downtrended. #Lactic acidosis, improved # Physical deconditioning - PT evaluation -Advance diet # Disposition - PT evaluation recommends SNF and skilled therapy. - CM consult -poor prognosis -code status: DNR/DNI , POLST signed by grandson. Case discussed in detail with family. Patient will be going home on hospice. Time of this not may not reflect time of encounter. I spent 40 minutes during this encounter, 50 percent spent on counselling and care coordination Subjective Date patient seen: Jul 13, 2019 ROS Limited/Unobtainable: No Constitutional: Reports: weakness HEENT: Denies: no symptoms, eye pain, blurred vision, tearing, double vision, ear pain, ear discharge, nose pain, nose congestion, throat pain, throat swelling, mouth pain, mouth swelling, other Gastrointestinal/Abdominal: Reports: abdomen distended Genitourinary: Denies: no symptoms, burning, discharge, frequency, flank pain, hematuria, incontinence, pain, urgency, other Neurologic/Psychiatric: Denies: no symptoms, anxiety, depressed, emotional problems, headache, numbness, paresthesia, pre-existing deficit, seizure, tingling, tremors, weakness, other Endocrine: Denies: no symptoms, excessive sweating, flushing, intolerance to cold, intolerance to heat, increased hunger, increased thirst, increased urine, unexplained weight gain, unexplained weight loss, other Hematologic/Lymphatic: Denies: no symptoms, anemia, easy bleeding, easy bruising, other Allergies: Coded Allergies: No Known Allergies (Unverified , 06/27/19) Subjective seen and examined s/p paracentesis 07/10 afebrile wbc trending up again liver enzymes worsening POLST signed DNR/DNR Waiting to go home on hospice Daughter at bedside cleaning patient Objective Last 24 Hour Vital Signs Date Time Temp Pulse Resp B/P (MAP) Pulse Ox O2 Delivery O2 Flow Rate FiO2 07/13/19 08:00 102 07/13/19 08:00 97.5 102 20 110/66 (81) 97 07/13/19 04:00 98.5 90 18 127/65 (85) 97 07/13/19 04:00 95 07/13/19 01:00 98.5 79 18 117/64 (81) 98 07/13/19 00:00 95 07/12/19 20:00 Nasal Cannula 2.0 07/12/19 20:00 97.2 93 20 95/64 (74) 95 07/12/19 20:00 95 07/12/19 16:00 97.7 100 20 104/63 (77) 97 07/12/19 16:00 95 07/12/19 12:00 93 07/12/19 12:00 98.5 95 21 98/59 (72) 98 Intake and Output 07/12/19 07/13/19 18:59 06:59 Output Total 300 ml 700 ml Balance -300 ml -700 ml Output Urine Total 300 ml 700 ml Laboratory Tests 07/13/19 02:00: Vancomycin Level Trough 21.4H 07/13/19 05:20: White Blood Count 14.0H, Red Blood Count 3.32L, Hemoglobin 10.3L, Hematocrit 31.9L, Mean Corpuscular Volume 96, Mean Corpuscular Hemoglobin 31.0, Mean Corpuscular Hemoglobin Concent 32.3, Red Cell Distribution Width 19.5H, Platelet Count 89L, Mean Platelet Volume 7.8, Neutrophils (%) (Auto) , Lymphocytes (%) (Auto) , Monocytes (%) (Auto) , Eosinophils (%) (Auto) , Basophils (%) (Auto) , Sodium Level 134L, Potassium Level 4.4, Chloride Level 105, Carbon Dioxide Level 19L, Anion Gap 10, Blood Urea Nitrogen 32H, Creatinine 0.8, Estimat Glomerular Filtration Rate > 60, Glucose Level 93, Calcium Level 7.9L, Total Bilirubin 16.2H, Direct Bilirubin 11.7H, Aspartate Amino Transf (AST/SGOT) 60H, Alanine Aminotransferase (ALT/SGPT) 53, Alkaline Phosphatase 139H, Total Protein 4.7L, Albumin 1.4L, Globulin 3.3, Albumin/ Globulin Ratio 0.4L Height (Feet): 5 Height (Inches): 2.00 Weight (Pounds): 146 Objective General Appearance: no distress EENT: PERRL/EOMI, +jaundice Neck: non-tender, normal alignment Cardiovascular: normal rate, regular rhythm Respiratory/Chest: lungs clear, normal breath sounds Abdomen: non tender, soft, distended, + ascites, weeping Neurologic: electron microscopist II-XII grossly normal Skin: normal pigmentation + Sen Dye M.D. Jul 13, 2019 11:24
[2019-07-13 12:00] VITALS: BP 98/49
--- NOTE | 2019-07-13 13:36 | GI Progress Note ---
Assessment/Plan Problems: (1) Acute GI bleeding ICD Codes: K92.2 - Gastrointestinal hemorrhage, unspecified SNOMED: 60909313 (2) GI bleed ICD Codes: K92.2 - Gastrointestinal hemorrhage, unspecified SNOMED: 43555702 (3) Varices, esophageal ICD Codes: I85.00 - Esophageal varices without bleeding SNOMED: 70617675 (4) Cirrhosis ICD Codes: K74.60 - Unspecified cirrhosis of liver SNOMED: 89087230 Status: unchanged Status Narrative Discussed with Dr. Garcia. Assessment/Plan Assessment - Non alcoholic cirrhosis, rising bili - UGIB due to esophageal varicies s/p banding - C Diff, on IV flagyl (no oral access for PO vanco at this time) - Resp failure - anemia - lactic acidosis - leukocytosis - guarded - s/p paracentesis yielding approx 5 liters - MELD score 19 - LYRIC, SMA negative Recommendations - serial CBC - transfuse PRN to keep Hg > 7 - on diet - H2B - follow labs - may need repeat paracentesis - PT to ambulate - albumin - overall poor prognosis, home with hospice The patient was seen and examined at bedside and all new and available data was reviewed in the patients chart. I agree with the above findings, impression and plan. (Patient seen earlier today. Signature stamp does not reflect patient encounter time.). - Mina Garcia MD Subjective Subjective limited Objective Last 24 Hour Vital Signs Date Time Temp Pulse Resp B/P (MAP) Pulse Ox O2 Delivery O2 Flow Rate FiO2 07/13/19 12:00 97.5 94 18 98/49 (65) 98 07/13/19 12:00 94 07/13/19 08:00 102 07/13/19 08:00 97.5 102 20 110/66 (81) 97 07/13/19 04:00 98.5 90 18 127/65 (85) 97 07/13/19 04:00 95 07/13/19 01:00 98.5 79 18 117/64 (81) 98 07/13/19 00:00 95 07/12/19 20:00 Nasal Cannula 2.0 07/12/19 20:00 97.2 93 20 95/64 (74) 95 07/12/19 20:00 95 07/12/19 16:00 97.7 100 20 104/63 (77) 97 07/12/19 16:00 95 Intake and Output 07/12/19 07/13/19 18:59 06:59 Output Total 300 ml 700 ml Balance -300 ml -700 ml Output Urine Total 300 ml 700 ml Laboratory Tests Test 07/13/19 02:00 07/13/19 05:20 Vancomycin Level Trough 21.4 ug/mL (5.0-12.0) H White Blood Count 14.0 K/UL (4.8-10.8) H Red Blood Count 3.32 M/UL (4.20-5.40) L Hemoglobin 10.3 G/DL (12.0-16.0) L Hematocrit 31.9 % (37.0-47.0) L Mean Corpuscular Volume 96 FL (80-99) Mean Corpuscular Hemoglobin 31.0 PG (27.0-31.0) Mean Corpuscular Hemoglobin Concent 32.3 G/DL (32.0-36.0) Red Cell Distribution Width 19.5 % (11.6-14.8) H Platelet Count 89 K/UL (150-450) L Mean Platelet Volume 7.8 FL (6.5-10.1) Neutrophils (%) (Auto) % (45.0-75.0) Lymphocytes (%) (Auto) % (20.0-45.0) Monocytes (%) (Auto) % (1.0-10.0) Eosinophils (%) (Auto) % (0.0-3.0) Basophils (%) (Auto) % (0.0-2.0) Sodium Level 134 MMOL/L (136-145) L Potassium Level 4.4 MMOL/L (3.5-5.1) Chloride Level 105 MMOL/L (98-107) Carbon Dioxide Level 19 MMOL/L (21-32) L Anion Gap 10 mmol/L (5-15) Blood Urea Nitrogen 32 mg/dL (7-18) H Creatinine 0.8 MG/DL (0.55-1.30) Estimat Glomerular Filtration Rate > 60 mL/min (>60) Glucose Level 93 MG/DL (74-106) Calcium Level 7.9 MG/DL (8.5-10.1) L Total Bilirubin 16.2 MG/DL (0.2-1.0) H Direct Bilirubin 11.7 MG/DL (0.0-0.3) H Aspartate Amino Transf (AST/SGOT) 60 U/L (15-37) H Alanine Aminotransferase (ALT/SGPT) 53 U/L (12-78) Alkaline Phosphatase 139 U/L (46-116) H Total Protein 4.7 G/DL (6.4-8.2) L Albumin 1.4 G/DL (3.4-5.0) L Globulin 3.3 g/dL Albumin/Globulin Ratio 0.4 (1.0-2.7) L Height (Feet): 5 Height (Inches): 2.00 Weight (Pounds): 146 General Appearance: WD/WN, no apparent distress, alert Cardiovascular: normal rate Respiratory/Chest: normal breath sounds, no respiratory distress Abdominal Exam: normal bowel sounds, non tender, soft, ascites Extremities: non-tender Luisana Walker NP Jul 13, 2019 13:36
--- NOTE | 2019-07-13 13:47 | Discharge Summary ---
Discharge Summary Hospital Course Date of Admission Jun 28, 2019 at 00:30 Date of Discharge 07/13/2019 Admitting Diagnosis acute GI bleed HPI Jessika Dawson is a 69 year old female who was admitted on Jun 28, 2019 at 00:30 for Acute Gastrointestinal Bleed Consultations GI: Dr. Garcia Heme: Dr. Chaudhary Pulmonary: Dr. Zeng ID: Dr. Chavez Procedures EGD and banding Paracentesis Hospital Course 69-year-old female with past medical history of liver cirrhosis without known etiology presents for hematemesis admitted to the hospital with hypovolemic and septic shock secondary to upper GI bleed, E.Coli PNA, C diff colitis, respiratory failure intubated and required pressors. Had a rough hospital course detailed below, without improvement. MAde DNR/DNI per family's wishes and to be discharged home with hospice. Seen and examined today: General Appearance: no distress EENT: PERRL/EOMI, +jaundice Neck: non-tender, normal alignment Cardiovascular: normal rate, regular rhythm Respiratory/Chest: lungs clear, normal breath sounds Abdomen: non tender, soft, distended, + ascites, weeping Neurologic: coater operator II-XII grossly normal Skin: normal pigmentation + anasarca #Hypovolemic/ septic shock secondary to hematemesis- resolved off pressors, e.coli pna, mrsa pna, sepsis, c.diff. +, leukocytosis, fevers, respiratory failure, ? sbp -s/p PRBC, platelet transfusion on admission- Hemoglobin stable -GI consult, appreciate recs: EGD 06/29/2019, esophageal varices x7 banding. Blood in abdomen. A limited however no active bleeding noted -Continue to monitor Hb. PRBC if < 7 or if acute bleed with Hb < 8. hgb has been stable -Surgery consult, appreciate recs -Cardiology consult, appreciate recs. Echo: ef wnl -prognosis guarded -IV zosyn, IV and PO vancomycin. ID consultation appreciated. Will DC all antibiotics on discharge #Liver cirrhosis with esophageal varices , ? sbp -Status post EGD as above -PPI -s/p Octreotide drip -Monitor CBC and BMP -Patient denies alcohol use, family states reason for liver cirrhosis is unknown. Differentials include Saunders versus autoimmune causes. Hepatitis panel negative, LYRIC, anti-mitochondrial and F-actin igG negative. Acetaminophen level 3, -Right upper quadrant ultrasound: Reviewed, no gallstones -Continue lactulose -CEA normal -prognosis guarded, worsening bilirubin. worsening leukocytosis. Approaching fulminant liver failure. Needs transplant. Case discussed with GI CONTRACT PREPARER Jarvis Whitfield and Dr. Maurer #Hepatic encephalopathy. Resolved. Received lactulose. #Intubation for airway protection and encephalopathy, extubated 07/03 -Pulmonology consult, appreciate recs #Urinary retention -Continue Rouse for now due to poor mobility -Monitor ins and outs -UA negative #Elevated troponin, likely secondary to demand ischemia -Cardiology consulted, appreciate recs -Echo: Within normal limits -Troponins downtrended. #Lactic acidosis, improved # Physical deconditioning - PT evaluation # Disposition -code status: DNR/DNI , POLST signed by grandson. Case discussed in detail with family. Patient will be going home on hospice. Time of this note may not reflect time of encounter. I spent 40 minutes during this encounter. Discharge Medications New Medications: PENDING: Ondansetron Odt* (Zofran Odt*) 8 Mg Tab.rapdis 8 MG ORAL Q6HR PRN, #30 TAB PENDING: Scopolamine (Transderm-Scop) 1 Each Patch.td.3 1.5 MG TDERMAL Q72H for 14 Days, #10 PATCH 9 Refills PENDING: Chlorhexidine Gluconate* (Hibiclens*) 118 Ml Liquid 1 APPLIC TOPIC DAILY@2000 for 30 Days, #10 ML PENDING: Vancomycin HCl (Vancomycin HCl) 500 Mg Vial 125 MG ORAL Q6HR for 30 Days, #10 VIAL Discharge Condition Upon Discharge: grave Discharge Disposition Patient was discharged to home with hospice Discharge Diagnoses: (1) NSTEMI (non-ST elevated myocardial infarction) (2) Hepatic encephalopathy (3) C. difficile colitis (4) Septic shock (5) Hypovolemic shock (6) Respiratory failure (7) Cirrhosis (8) Acute GI bleeding (9) Varices, esophageal Sen Foley M.D. Jul 13, 2019 13:47
[2019-07-13] MEDS ORDERED: ZOFRAN ODT8 MG ORAL (13:54)
[2019-07-13] MEDS ORDERED: HIBICLENS118 ML TOPIC (13:54)
[2019-07-13] MEDS ORDERED: VANCOMYCIN250 MG/5 M ORAL (13:54)
[2019-07-13] MEDS ORDERED: TRANSDERM-SCOP1.5 MG TDERMAL (13:54)
--- NOTE | 2019-07-13 13:55 | Discharge Instructions ---
Discharge Instructions Discharge Instructions Services at Discharge: hospice Diet: 2 GM sodium (low sodium) Resume Normal Activity?: No Activity: bedrest For Congestive Heart Failure Reminder Report to your physician any weight gain of 5 pounds or more in one week. Sen Foley M.D. Jul 13, 2019 13:55
--- NOTE | 2019-07-13 13:56 | NUR ---
INSURANCE REVIEWS FAXED TO [facility]AN[facility]: [facility] P- [phone] F- [phone]...........REVIEW/ CLINICAL
--- NOTE | 2019-07-13 14:15 | NUR ---
NURSE NOTES: Paged Dr. Foley for clarification regarding discharge orders. Per Dr. Foley, continue 2L oxygen, Rouse Catheter, remove PICC line. Order noted, entered, carried out. Will continue to monitor.
--- NOTE | 2019-07-13 14:18 | NUR ---
NURSE NOTES: Called family member, Sara (Daughter), regarding discharge order. Per Sara, the bed will be delivered around 1830. Will call the family member around 1830. CN made aware.
--- NOTE | 2019-07-13 14:34 | Surgery Progress Note ---
Surgery Progress Note Subjective Additional Comments leukocytosis improved worsening hepatic function exam unchanged Objective Last 24 Hour Vital Signs Date Time Temp Pulse Resp B/P (MAP) Pulse Ox O2 Delivery O2 Flow Rate FiO2 07/13/19 12:00 97.5 94 18 98/49 (65) 98 07/13/19 12:00 94 07/13/19 08:00 102 07/13/19 08:00 97.5 102 20 110/66 (81) 97 07/13/19 04:00 98.5 90 18 127/65 (85) 97 07/13/19 04:00 95 07/13/19 01:00 98.5 79 18 117/64 (81) 98 07/13/19 00:00 95 07/12/19 20:00 Nasal Cannula 2.0 07/12/19 20:00 97.2 93 20 95/64 (74) 95 07/12/19 20:00 95 07/12/19 16:00 97.7 100 20 104/63 (77) 97 07/12/19 16:00 95 I&O Intake and Output 07/12/19 07/13/19 18:59 06:59 Output Total 300 ml 700 ml Balance -300 ml -700 ml Output Urine Total 300 ml 700 ml Dressing: other Wound: other Drains: other Cardiovascular: RSR Respiratory: clear Abdomen: soft, distended, non-tender, present bowel sounds Extremities: no tenderness, no cyanosis Laboratory Tests Test 07/13/19 02:00 07/13/19 05:20 Vancomycin Level Trough 21.4 ug/mL (5.0-12.0) H White Blood Count 14.0 K/UL (4.8-10.8) H Red Blood Count 3.32 M/UL (4.20-5.40) L Hemoglobin 10.3 G/DL (12.0-16.0) L Hematocrit 31.9 % (37.0-47.0) L Mean Corpuscular Volume 96 FL (80-99) Mean Corpuscular Hemoglobin 31.0 PG (27.0-31.0) Mean Corpuscular Hemoglobin Concent 32.3 G/DL (32.0-36.0) Red Cell Distribution Width 19.5 % (11.6-14.8) H Platelet Count 89 K/UL (150-450) L Mean Platelet Volume 7.8 FL (6.5-10.1) Neutrophils (%) (Auto) % (45.0-75.0) Lymphocytes (%) (Auto) % (20.0-45.0) Monocytes (%) (Auto) % (1.0-10.0) Eosinophils (%) (Auto) % (0.0-3.0) Basophils (%) (Auto) % (0.0-2.0) Sodium Level 134 MMOL/L (136-145) L Potassium Level 4.4 MMOL/L (3.5-5.1) Chloride Level 105 MMOL/L (98-107) Carbon Dioxide Level 19 MMOL/L (21-32) L Anion Gap 10 mmol/L (5-15) Blood Urea Nitrogen 32 mg/dL (7-18) H Creatinine 0.8 MG/DL (0.55-1.30) Estimat Glomerular Filtration Rate > 60 mL/min (>60) Glucose Level 93 MG/DL (74-106) Calcium Level 7.9 MG/DL (8.5-10.1) L Total Bilirubin 16.2 MG/DL (0.2-1.0) H Direct Bilirubin 11.7 MG/DL (0.0-0.3) H Aspartate Amino Transf (AST/SGOT) 60 U/L (15-37) H Alanine Aminotransferase (ALT/SGPT) 53 U/L (12-78) Alkaline Phosphatase 139 U/L (46-116) H Total Protein 4.7 G/DL (6.4-8.2) L Albumin 1.4 G/DL (3.4-5.0) L Globulin 3.3 g/dL Albumin/Globulin Ratio 0.4 (1.0-2.7) L Plan Problems: (1) Cirrhosis (2) Varices, esophageal (3) GI bleed Assessment & Plan: 69F with acute GI bleed. etiology likely prior varices anemia on admission and transfused extubated and improving downgraded comfortable EGD noted okay for diet iv fluids PPI worsening hepatic dysfunction decompensating prognosis still guarded d/c planning will follow with recs thank you (4) Acute GI bleeding Zaid Wong Jul 13, 2019 14:34
[2019-07-13 16:00] VITALS: BP 107/64
--- NOTE | 2019-07-13 16:05 | Infectious Diseases Prog Note ---
Assessment/Plan Assessment/Plan ASSESSMENT AND PLAN: 1. esbl e.coli pna, mrsa pna, sepsis, shock, c.diff. +, leukocytosis, fevers, respiratory failure, ? sbp - vancomycin x 2 days more for mrsa pna tx - meropenem x 8 days more for esbl e.coli pna tx (was on zosyn previously, started on 07/10/19) - f/u on labs and chest x-ray - supportive are, paracentesis as indicated - poor prognosis, now DNR per RN - plan on hospice, d/w with Dr. Foley - will sign off 2. GI bleed. 3. Anemia. 4. H. pylori infection. 5. Diabetes. 6. Esophageal varices. 7. Respiratory failure. 8. Anemia and thrombocytopenia. 9. Liver cirrhosis. 10. Continue treatment per primary consultants. 11. No known drug allergies. 12. Social history is negative. 13. Family history is noncontributory. 14. MAR was noted. 15. Case was discussed with RN. 16. Case was discussed with Dr. Hunter 17. mrsa colonization Subjective Constitutional: Reports: fatigue; Denies: fever HEENT: Reports: congestion - mild Respiratory: Reports: shortness of breath - mild Cardiovascular: Reports: other - no jackson Gastrointestinal/Abdominal: Reports: other - abdomen distended ; Denies: nausea , vomiting, diarrhea Neurologic: Reports: other - weak, responsive Skin: Denies: rash Hematologic: Denies: bleeding Allergies: Coded Allergies: No Known Allergies (Unverified , 06/27/19) Objective Vital Signs Last 24 Hour Vital Signs Date Time Temp Pulse Resp B/P (MAP) Pulse Ox O2 Delivery O2 Flow Rate FiO2 07/13/19 12:00 97.5 94 18 98/49 (65) 98 07/13/19 12:00 94 07/13/19 08:00 102 07/13/19 08:00 97.5 102 20 110/66 (81) 97 07/13/19 04:00 98.5 90 18 127/65 (85) 97 07/13/19 04:00 95 07/13/19 01:00 98.5 79 18 117/64 (81) 98 07/13/19 00:00 95 07/12/19 20:00 Nasal Cannula 2.0 07/12/19 20:00 97.2 93 20 95/64 (74) 95 9/5/19 20:00 95 Height (Feet): 5 Height (Inches): 2.00 Weight (Pounds): 146 General Appearance: no acute distress HEENT: normocephalic, atraumatic, other - + icterus Respiratory/Chest: crackles/rales, rhonchi - bilaterally Cardiovascular: normal rate, regular rhythm, no gallop/murmur, no JVD Abdomen: distended Extremities: no cyanosis, other - + edema Skin: no rash Neurologic/Psychiatric: interior painter II-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 Endotracheal tube has been pulled back and is now 2 cm above the halima in good position. 2. Improved lung volumes. Mild increased vascular interstitial prominence. Abdominal US: Impression: Evidence of hepatic cirrhosis, with coarsened hepatic echogenicity and surface nodularity Evidence of portal hypertension, with ascites, hepatic hilar varices, and abnormal portal venous flow No gallstones. Gallbladder wall is markedly thickened. This is probably edema due to the hepatic abnormalities. Acalculous acute cholecystitis or cholecystitis secondary to occult stone disease excludable, and hepatobiliary nuclear scan could be considered if there is high clinical suspicion Left renal cyst Node inability to visualize the pancreas and portions of the abdominal aorta Chest x-ray - 07/03/19 - Impression: New/increased bilateral basilar atelectatic changes and possible right basilar consolidation, over 3 days Other findings as noted 07/07/19 - chest x-ray - IMPRESSION: 1. Interval removal of endotracheal tube. 2. Right-sided PICC with the catheter tip in the region of the right atrium. 3. Cardiomegaly. 4. Low lung volumes, which may be related to shallow inspiration. 5. Subsegmental atelectasis versus infiltrates in bilateral lung bases, unchanged. Microbiology Date/Time Source Procedure Growth Status 06/29/19 17:15 Blood Blood Culture - Final NO GROWTH AFTER 5 DAYS Complete 07/08/19 08:34 Sputum Gram Stain - Final Complete 07/08/19 08:34 Sputum Culture - Final Escherichia Coli - Esbl Jing Albicans Complete 06/30/19 14:50 Stool Clostridium difficile Toxin Assay - Final Complete 07/03/19 14:15 Abdominal Fluid Gram Stain - Final Complete 07/03/19 14:15 Abdominal Fluid Body Fluid Culture - Final NO GROWTH Complete Laboratory Tests Test 07/13/19 02:00 07/13/19 05:20 Vancomycin Level Trough 21.4 ug/mL (5.0-12.0) H White Blood Count 14.0 K/UL (4.8-10.8) H Red Blood Count 3.32 M/UL (4.20-5.40) L Hemoglobin 10.3 G/DL (12.0-16.0) L Hematocrit 31.9 % (37.0-47.0) L Mean Corpuscular Volume 96 FL (80-99) Mean Corpuscular Hemoglobin 31.0 PG (27.0-31.0) Mean Corpuscular Hemoglobin Concent 32.3 G/DL (32.0-36.0) Red Cell Distribution Width 19.5 % (11.6-14.8) H Platelet Count 89 K/UL (150-450) L Mean Platelet Volume 7.8 FL (6.5-10.1) Neutrophils (%) (Auto) % (45.0-75.0) Lymphocytes (%) (Auto) % (20.0-45.0) Monocytes (%) (Auto) % (1.0-10.0) Eosinophils (%) (Auto) % (0.0-3.0) Basophils (%) (Auto) % (0.0-2.0) Sodium Level 134 MMOL/L (136-145) L Potassium Level 4.4 MMOL/L (3.5-5.1) Chloride Level 105 MMOL/L (98-107) Carbon Dioxide Level 19 MMOL/L (21-32) L Anion Gap 10 mmol/L (5-15) Blood Urea Nitrogen 32 mg/dL (7-18) H Creatinine 0.8 MG/DL (0.55-1.30) Estimat Glomerular Filtration Rate > 60 mL/min (>60) Glucose Level 93 MG/DL (74-106) Calcium Level 7.9 MG/DL (8.5-10.1) L Total Bilirubin 16.2 MG/DL (0.2-1.0) H Direct Bilirubin 11.7 MG/DL (0.0-0.3) H Aspartate Amino Transf (AST/SGOT) 60 U/L (15-37) H Alanine Aminotransferase (ALT/SGPT) 53 U/L (12-78) Alkaline Phosphatase 139 U/L (46-116) H Total Protein 4.7 G/DL (6.4-8.2) L Albumin 1.4 G/DL (3.4-5.0) L Globulin 3.3 g/dL Albumin/Globulin Ratio 0.4 (1.0-2.7) L Current Medications Medications (Trade) Dose Ordered Sig/Naseem Route PRN Reason Start Time Stop Time Status Last Admin Dose Admin Chlorhexidine Gluconate (Mer-Hex 2%) 1 applic DAILY@2000 TOPIC 07/04/19 20:00 08/01/19 19:59 07/11/19 21:20 Dextrose (Dextrose 50%) 25 ml Q30M PRN IV Hypoglycemia 07/04/19 16:00 07/28/19 04:59 Dextrose (Dextrose 50%) 50 ml Q30M PRN IV Hypoglycemia 07/04/19 16:00 07/28/19 04:59 Famotidine (Pepcid I.v.) 20 mg Q12HR IVP 07/04/19 21:00 08/01/19 20:59 07/13/19 09:14 Insulin Aspart (NovoLOG) BEFORE MEALS AND HS SUBQ 07/04/19 16:30 07/28/19 06:29 07/12/19 20:49 Meropenem 1 gm/ Sodium Chloride 100 ml @ 200 mls/hr Q8HR IVPB 07/11/19 22:00 07/20/19 23:59 07/13/19 13:00 Ondansetron HCl (Zofran) 4 mg Q6H PRN IVP Nausea & Vomiting 07/04/19 15:43 08/03/19 15:42 Sodium Chloride 1,000 ml @ 50 mls/hr Q20H IV 07/04/19 15:42 08/03/19 15:41 07/13/19 05:19 Vancomycin HCl (Firvanq) 125 mg Q6HR ORAL 07/12/19 00:00 07/19/19 00:00 07/13/19 12:59 Vancomycin HCl (Vanco rx to dose) 1 ea DAILY PRN MISC Per rx protocol 07/05/19 09:00 08/01/19 12:29 Vancomycin HCl 750 mg/Sodium Chloride 275 ml @ 183.333 mls/hr Q24H IVPB 07/13/19 10:00 07/14/19 12:00 07/13/19 09:15 Jay Hurtado MD Jul 13, 2019 16:05
--- NOTE | 2019-07-13 17:14 | NUR ---
NURSE NOTES: PICC line removed per Dr. Foley. 37 cm, no sign of bleeding at this time, compression dressing applied.
--- NOTE | 2019-07-13 19:28 | NUR ---
HAND-OFF: Report given to ROMAIN Cisneros.
--- NOTE | 2019-07-13 19:45 | NUR ---
NURSE NOTES: Received pt from ROMAIN Pop. Pt awake, alert, and talkative. Family at bedside awaiting discharge. Called and spoke with [facility] junior sales representative, [email or web address] 45 mins-1hr. Bed in lowest position. Call light within reach. Will continue to monitor.
[2019-07-13] MEDS ORDERED: Tubing IV Secondary IV ONE (20:10)
[2019-07-13] MEDS ORDERED: NS 275ml ONE (20:10)
[2019-07-13] MEDS ORDERED: 1/2 NS 1000ml IV ONE (20:10)
--- NOTE | 2019-07-13 20:15 | NUR ---
HAND-OFF: Report given to [facility] personnel. Pt d/c.
--- NOTE | 2019-07-16 13:03 | NUR ---
INSURANCE DISCHARGE SUMMARY HAS BEEN FAXE TO: SHANICE MCKOY: AKUA P- [phone] F- [phone]...........REVIEW/ CLINICAL
== END 2019-07-13 20:11 | disposition hospice, home (50) | DRG 720 ==
LOC: EDBD 23:41 → EMR 23:59 → ICU 06-28 00:30 → EDBEDREQ 06-28 03:04 → 2E 07-04 15:30
PROC: 06HN33Z Insertion of Infusion Device into Left Femoral Vein, Percutaneous Approach (ICD-10-PCS; 2019-06-28)
PROC: 5A1955Z Respiratory Ventilation, Greater than 96 Consecutive Hours (ICD-10-PCS; 2019-06-28)
PROC: 0BH17EZ Insertion of Endotracheal Airway into Trachea, Via Natural or Artificial Opening (ICD-10-PCS; 2019-06-28)
PROC: 06L38CZ Occlusion of Esophageal Vein with Extraluminal Device, Via Natural or Artificial Opening Endoscopic (ICD-10-PCS; principal; 2019-06-29 12:29)
PROC: 0W9G3ZZ Drainage of Peritoneal Cavity, Percutaneous Approach (ICD-10-PCS; 2019-07-03)
PROC: B548ZZA Ultrasonography of Superior Vena Cava, Guidance (ICD-10-PCS; 2019-07-03)
PROC: 02HV33Z Insertion of Infusion Device into Superior Vena Cava, Percutaneous Approach (ICD-10-PCS; 2019-07-03)
PROC: 0W9G3ZZ Drainage of Peritoneal Cavity, Percutaneous Approach (ICD-10-PCS; 2019-07-10)
DX: A41.9 Sepsis, unspecified organism (principal); K74.69 Other cirrhosis of liver; R18.8 Other ascites; I85.11 Secondary esophageal varices with bleeding; R57.1 Hypovolemic shock; K72.90 Hepatic failure, unspecified without coma; D64.9 Anemia, unspecified; J96.01 Acute respiratory failure with hypoxia; I24.8 Other forms of acute ischemic heart disease; A04.72 Enterocolitis due to Clostridium difficile, not specified as recurrent; D69.6 Thrombocytopenia, unspecified; E11.9 Type 2 diabetes mellitus without complications; R65.21 Severe sepsis with septic shock; E87.6 Hypokalemia; J15.212 Pneumonia due to Methicillin resistant Staphylococcus aureus; J15.5 Pneumonia due to Escherichia coli; K76.6 Portal hypertension; K31.89 Other diseases of stomach and duodenum; R33.9 Retention of urine, unspecified; Z66 Do not resuscitate; I21.A1 Myocardial infarction type 2
CPT/HCPCS: 31500; 36415; 36569; 36600; 71045; 76700; 76937; 76942; 80048; 80053; 80202; 80329; 81003; 82105; 82140; 82248; 82378; 82390; 82550; 82553; 82607; 82728; 82746; 82803; 82962; 83051; 83540; 83550; 83605; 83690; 83735; 83880; 84100; 84439; 84443; 84484; 85007; 85025; 85044; 85060; 85610; 85730; 86039; 86235; 86256; 86644; 86665; 86703; 86705; 86709; 86803; 86850; 86900; 86901; 86920; 87040; 87070; 87081; 87181; 87205; 87324; 87340; 87497; 88104; 92610; 93005; 93306; 93970; 94002; 94003; 94150; 94664; 96365; 96366; 96375; 99291; 99292; J1815; J2405